=== PATIENT | male | born 1985 | race Caucasian/White ===

== ENCOUNTER 2018-05-20 08:15 | Emergency (ER) | payer OTHER, SELFPAY ==
[2018-05-20 08:15] VITALS: BP 138/76; PULSE 76; RESP 18; TEMP 36.8; O2SAT 98; BMI 32.3
[2018-05-20] MEDS: Glucagon 1 MG/ML Syringe IM (08:34)
--- NOTE | 2018-05-20 08:35 | ED.VISSUMM ---
- ER Visit Summary Date of Service: 05/20/18 Chief Complaint: Food impaction History of Present Illness: The patient is a 33 M presents with food impaction. Patient states that he was eating a hot dog last night at the [facility]. He felt the hot dog get stuck in his throat. He attempted to make himself vomit. He continues to feel like the food is stuck in his throat. When he attempts to swallow liquids today, it comes back up. He has a history of this one time in the past. Denies other complaints. Physical Examination: Vitals are stable. Patient is afebrile. Alert no acute distress. HEENT exam is unremarkable. Neck is supple. Lungs are clear and equal bilaterally. Heart is regular rate and rhythm. Abdomen is soft nontender nondistended. Extremities are unremarkable. Skin is warm and dry. Remainder of exam is unremarkable. Emergency Department Course and Treatment: Patient given glucagon IM with no improvement. Discussed with Dr. Lemon, we currently have no OR/endoscopy availability. Discussed with [facility]. Patient will be transferred to [facility] by private vehicle. Disposition: Transfer [facility] Impression: Esophageal food impaction This note was generated with [employer] dictation software. It may contain incorrect words, spelling, and punctuation that were not noted in review of the chart prior to signing ED Disposition - Plan for ED Patient: Chief Complaint: Foreign Body Referrals: Care Physician,No Primary [Primary Care Provider] -
--- NOTE | 2018-05-20 08:50 | NURSING ---
CALLING [facility] FOR TRANSFER. TALKED TO DIMAS
--- NOTE | 2018-05-20 09:10 | ED.DEP ---
ED Disposition - Plan for ED Patient: Chief Complaint: Foreign Body Instructions: ED Foreign Body Swallowed Adult Referrals: Care Physician,No Primary [Primary Care Provider] -
[2018-05-20 09:50] VITALS: BP 161/97; PULSE 81; RESP 16; O2SAT 97
--- NOTE | 2018-05-20 09:50 | NURSING ---
ER TO ER PRIVATE CAR
== END 2018-05-20 10:12 | disposition short-term general hospital (02) ==
PROVIDERS: Emergency Provider Emergency Medicine
DX: T18.128A Food in esophagus causing other injury, initial encounter (principal); X58.XXXA Exposure to other specified factors, initial encounter; Y93.89 Activity, other specified; Y92.320 Baseball field as the place of occurrence of the external cause; Y99.8 Other external cause status
CPT/HCPCS: 96372; 99283; J1610

== ENCOUNTER 2018-09-18 19:16 | Emergency (ER) | payer OTHER, SELFPAY ==
[2018-09-18 19:17] VITALS: BP 166/94; PULSE 99; RESP 16; TEMP 36.4; O2SAT 100; BMI 32.9
--- NOTE | 2018-09-18 19:35 | RAD_ITS ---
STUDY: X-RAY - RIGHT RADIUS AND ULNA REASON FOR EXAM: Male, 33 years old. Fall. Pain. TECHNIQUE: 2 view(s) of the forearm. COMPARISON: None. FINDINGS: There is no evidence of fracture or dislocation. There are no significant degenerative changes. There are no radiodense foreign bodies. RAD/Forearm 2 Views IMPRESSION: No fracture or dislocation. Electronically Signed: Davon Metz, at 19:54 EST Tel , Service support ,
[2018-09-18] MEDS: Naproxen 500 MG Tablet PO (19:37)
--- NOTE | 2018-09-18 20:14 | ED.DCSUM_ITS ---
- ER Visit Summary Date of Service: 09/18/18 Chief Complaint: Right arm injury History of Present Illness: The patient is a 33 M who fell [place] tonight injuring his right forearm. He reports tingling in his fingers. Pain is over the proximal forearm and he denies any pain at the shoulder. He is right-hand dominant. He denies any other injury from the fall. Physical Examination: Vital signs significant for blood pressure 166/94, otherwise unremarkable. Head neck examination normal. Heart is regular rate and rhythm. Lung sounds are clear. Right upper extremity examination reveals abrasions with mild edema to the proximal right forearm. He has full range of motion. Strong distal pulses are noted. Strong hand grasp with normal strength throughout. Test Results: Right forearm x-rays revealed no evidence of fracture or dislocation. Emergency Department Course and Treatment: Patient is given an ice pack and naproxen for pain. Test results are discussed with him. He will be given naproxen for home and referred to local PCP for follow-up. Treatment Plan: [] Disposition: Discharge Impression: Mechanical fall with right forearm contusion This note was generated with [employer] dictation software. It may contain incorrect words, spelling, and punctuation that were not noted in review of the chart prior to signing ED Disposition - Plan for ED Patient: Chief Complaint: Upper Extremity Injury Referrals: Care Physician,No Primary [Primary Care Provider] -
--- NOTE | 2018-09-18 20:14 | ED.DEP ---
ED Disposition - Plan for ED Patient: Disposition: Home or Assisted Living Chief Complaint: Upper Extremity Injury Instructions: ED Contusion Upper Ext Prescriptions: Naproxen [Naprosyn] 500 mg PO BID PRN PRN #20 tablet PRN Reason: Pain Referrals: Krish Barrett III, MD [STAFF PHYSICIAN] - 1-2 Weeks
[2018-09-18 20:24] VITALS: BP 158/90; PULSE 95; RESP 16; O2SAT 98
--- OUTSIDE RECORDS SUMMARY | 2018-11-21 05:25 | XMS RPT_ITS ---
:1985 Author Organization [facility] Care Team Providers Name Role Phone Primay Care Physicia, No Primary Care Unavailable Fe Castle Attending Unavailable Primay Care Physicia, No Primary Care Unavailable Macrina Rand Attending Unavailable KATY MAIN (PROJECT FINANCE ANALYST) Referring Unavailable ORIN COTTON Referring Unavailable MELVINA, ROLANDA-CHI Primary Care Unavailable DAHLIA BUNN Attending Unavailable PROBLEMS PROBLEMS DATE TYPE CONDITION / ATTENDING STATUS SOURCE CODE 05/20/2018 Active Unknown / NA Active [facility] UNK(Unknown) Other [place] Repository 05/20/2018 Admitting Unknown / Raina BUNN General diagnosis UNK(Unknown) [facility] Repository 01/02/2018 Active Pain in right NA Active [facility] hand / Main [place] M79.641(ICD-10) Repository PROCEDURES PROCEDURES No Procedure Records FoundRESULTS RESULTS EMERGENCY DEPARTMENT Observed: 09/18/2018 Status: F Source: [place] SUMMARY 10:12 PM [facility] REPOSITORY [facility] Medical Records Department [address] [place] [address] Emergency Department Summary 09/18/182011 MR#: [id number] Acct: [id number] Name: EL GROSS GENE Rep #: [id number] : 1985 33 From: Macrina Rand MD PCP: Care Physician, No Primary Status: DEP ER - ER Visit Summary Date of Service: 09/18/18 Chief Complaint: Right arm injury History of Present Illness: The patient is a 33 M who fell on [place] tonight injuring his right forearm. He reports tingling in his fingers. Pain is over the proximal forearm and he denies any pain at the shoulder. He is right-hand dominant. He denies any other injury from the fall. Physical Examination: Vital signs significant for blood pressure 166/94, otherwise unremarkable. Head neck examination normal. Heart is regular rate and rhythm. Lung sounds are clear. Right upper extremity examination reveals abrasions with mild edema to the proximal right forearm. He has full range of motion. Strong distal pulses are noted. Strong hand grasp with normal strength throughout. Test Results: Right forearm x-rays revealed no evidence of fracture or dislocation. Emergency Department Course and Treatment: Patient is given an ice pack and naproxen for pain. Test results are discussed with him. He will be given naproxen for home and referred to local PCP for follow-up. Treatment Plan: [] Disposition: Discharge Impression: Mechanical fall with right forearm contusion This note was generated with [employer] dictation software. It may contain incorrect words, spelling, and punctuation that were not noted in review of the chart prior to signing ED Disposition - Plan for ED Patient: Chief Complaint: Upper Extremity Injury Referrals: Care Physician,No Primary [Primary Care Provider] - What to do if you have Problems For any increased pain, shortness of breath, bleeding, nausea or vomiting, chest pain, or any unexpected problems, contact your Primary Care Provider. Call [employer] [facility] ([phone]) or report to the closest Emergency Room. Call 911 if necessary. 09/18/18 3318 <Electronically signed by Macrina Rand MD> Date Macrina Rand MD Cosigner Signature (If Indicated): Date CC: No Primary Care Physician DISCHARGE INSTRUCTION Observed: 09/18/2018 Status: F Source: [place] 8:15 PM [facility] REPOSITORY [facility] Medical Records Department [address] [place] [address] Discharge Instruction 09/18/182013 MR#: [id number] Acct: [id number] Name: EL GROSS Rep #: [id number] : 1985 33 From: Macrina Rand MD PCP: Care Physician, No Primary Status: REG ER ED Disposition - Plan for ED Patient: Disposition: Home or Assisted Living Chief Complaint: Upper Extremity Injury Instructions: ED Contusion Upper Ext Prescriptions: Naproxen [Naprosyn] 500 mg PO BID PRN PRN #20 tablet PRN Reason: Pain Referrals: Krish Barrett III, MD [STAFF PHYSICIAN] - 1-2 Weeks What to do if you have Problems For any increased pain, shortness of breath, bleeding, nausea or vomiting, chest pain, or any unexpected problems, contact your Primary Care Provider. Call [employer] [facility] ([phone]) or report to the closest Emergency Room. Call 911 if necessary. 09/18/182014 <Electronically signed by Macrina Rand MD> Date Macrina Rand MD Cosigner Signature (If Indicated): Date CC: No Primary Care Physician FOREARM 2 VIEWS Observed: 09/18/2018 Status: F Source: [place] 7:30 PM [facility] REPOSITORY [facility] Imaging Services [address] [address] Forearm 2 Views MR#: [id number] Acct: [id number] Name: EL GROSS Rep #: [id number] : 1985 M 33 From: Davon Metz MD PCP: Care Physician, No Primary Status: REG ER Study: Forearm 2 Views Date of Exam: 09/18/18 Exam# [id number] Ordering Dr: Macrina Rand MD STUDY: X-RAY - RIGHT RADIUS AND ULNA REASON FOR EXAM: Male, 33 years old. Fall. Pain. TECHNIQUE: 2 view(s) of the forearm. COMPARISON: None. FINDINGS: There is no evidence of fracture or dislocation. There are no significant degenerative changes. There are no radiodense foreign bodies. RAD/Forearm 2 Views IMPRESSION: No fracture or dislocation. Electronically Signed: Davon Isaías, at 19:54 EST Tel , Service support , CC: No Primary Care Physician; Macrina Rand MD Manager Technical Training: Signed ANES POST Observed: 05/20/2018 Status: COMPLETED Source: [place] 5:21 PM [facility] REPOSITORY O ID: [id number] Author: John Faye Service: Anesthesiology Author Type: Physician Type: Anesthesia PostOp Filed: 05/20/2018 5:21 PM Note Text: POST ANESTHESIA EVALUATION NOTE SERVICE DATE: 05/20/2018 SERVICE TIME: 5:21 PM : 1985 Vitals: 05/20/18 1105 05/20/181709 Temp: 36.6 ?C (97.9 ?F) 37.1 ?C (98.8 ?F) 05/20/18 1430 05/20/18 1530 05/20/18 1600 05/20/181709 BP: 135/94 135/87 129/82 112/77 05/20/18 1130 05/20/18 1430 05/20/18 1530 05/20/18 171 Pulse: (!) 92 89 (!) 91 102 05/20/18 1130 05/20/18 1430 05/20/18 1530 05/20/18 1710 Resp: 18 14 22 20 05/20/18 1130 05/20/18 1430 05/20/18 1530 05/20/18 1710 SpO2: 96% (!) 94% 98% 100% Validated Vital Signs: Yes POST ANES STATUS: No apparent anesthetic complications. The patient is appropriately hydrated with stable respiratory and cardiovascular status. Patient has safe and adequate airway control. The patient has appropriate pain relief and no significant post operative nausea or vomiting. The patient has achieved baseline mental status. Intra-Operative Events: No Significant Anesthesia Events Further assessment by Anesthesia Service: None Other Remarks: SIGNATURE: John Faye MD PATIENT NAME: El Gross DATE: May 20, 2018 TIME: 5:21 PM PAGER/CONTACT #: [phone] BRIEF OP NOT Observed: 05/20/2018 Status: COMPLETED Source: [place] 5:21 PM [facility] OTHER CAMPUS REPOSITORY HNO ID: [id number] Author: Cheryl Carrion MD Service: Gastroenterology Author Type: Physician Type: Brief Op Note Filed: 05/20/2018 5:25 PM Note Text: BRIEF OPERATIVE / PROCEDURE NOTE LOG ID: [id number] SURGERY/PROCEDURE DATE: 05/20/2018 INCISION/PROCEDURE START TIME: 4:48 PM INCISION CLOSE/PROCEDURE END TIME: 5:02 PM SURGEON(S)/PROCEDURALIST(S) AND MASTER PILOT(S): Surgeon(s) and Role: * Cheryl Carrion MD - Primary No Additional Staff PROCEDURE(S): EGD with foreign body removal (food bolus) ANESTHESIA: General FINDINGS: - normal duodenum - normal stomach - GEJ 38cm - food bolus noted in the proximal esophagus removed with swift net. 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 and biopsies from the distal and proxiaml esophagus were taken to evaluate for eosinophilic esophagitis - otherwise normal esophagus ESTIMATED BLOOD LOSS: None SPECIMENS: Biopsies from the distal and proximal esophagus COMPLICATIONS: None PRE-OP/PRE-PROCEDURE DIAGNOSIS: food impaction POST-OP/POST-PROCEDURE DIAGNOSIS: Food impaction of esophagus [T18.128A] SIGNATURE: Cheryl Carrion MD PATIENT NAME: El Gross DATE: May 20, 2018 TIME: 5:21 PM PAGER/CONTACT #: ANES PREOP Observed: 05/20/2018 Status: COMPLETED Source: [place] 5:20 PM [facility] REPOSITORY HNO ID: [id number] Author: John Faye Service: Anesthesiology Author Type: Physician Type: Anesthesia PreOp Filed: 05/20/2018 5:20 PM Note Text: POST ANESTHESIA EVALUATION NOTE SERVICE DATE: 05/20/2018 SERVICE TIME: 5:20 PM : 1985 Vitals: 05/20/18 1105 05/20/18 1710 Temp: 36.6 ?C (97.9 ?F) 37.1 ?C (98.8 ?F) 05/20/18 1430 05/20/18 1530 05/20/18 1600 05/20/18 1710 BP: 135/94 135/87 129/82 112/77 05/20/18 1130 05/20/18 1430 05/20/18 1530 05/20/18 1710 Pulse: (!) 92 89 (!) 91 102 05/20/18 1130 05/20/18 1430 05/20/18 1530 05/20/18 1710 Resp: 18 14 22 20 05/20/18 1130 05/20/18 1430 05/20/18 1530 05/20/18 1710 SpO2: 96% (!) 94% 98% 100% Validated Vital Signs: Yes POST ANES STATUS: No apparent anesthetic complications. The patient is appropriately hydrated with stable respiratory and cardiovascular status. Patient has safe and adequate airway control. The patient has appropriate pain relief and no significant post operative nausea or vomiting. The patient has achieved baseline mental status. Intra-Operative Events: No Significant Anesthesia Events Further assessment by Anesthesia Service: None Other Remarks: SIGNATURE: John Faye MD PATIENT NAME: El Gross DATE: May 20, 2018 TIME: 5:20 PM PAGER/CONTACT #: [phone] ANES PREOP Observed: 05/20/2018 Status: COMPLETED Source: [place] 5:15 PM [facility] REPOSITORY HNO ID: [id number] Author: John Faye Service: Anesthesiology Author Type: Physician Type: Anesthesia PreOp Filed: 05/20/2018 5:16 PM Note Text: ANESTHESIOLOGY DAY OF SURGERY NOTE SERVICE DATE: 05/20/2018 SERVICE TIME: 5:15 PM : 1985 Procedure(s) (LRB): EGD (N/A) Surgeon(s): Cheryl Carrion MD Estimated body mass index is 32.32 kg/m? as calculated from the following: Height as of this encounter: 185.4 cm (6' 1). Weight as of this encounter: 111.1 kg (245 lb). Most recent hematocrit and potassium results: Hematocrit 47.5 09/29/2012 Potassium 3.9 09/29/2012 ANES DOS/PREOP NOTE: Vitals: 05/20/18 1430 05/20/18 1530 05/20/18 1600 05/20/18 1710 BP: 135/94 135/87 129/82 Pulse: 89 (!) 91 Resp: 14 22 Temp: (P) 37.1 ?C (98.8 ?F) TempSrc: (P) Temporal Artery SpO2: (!) 94% 98% Weight: Height: ACTIVE PROBLEM LIST Palpitations Well Adult Exam Seasonal Allergies Food Impaction of Esophagus Obesity, Class I, Bmi 30-34.9 PAST MEDICAL HISTORY Diagnosis Date - Obstructive sleep apnea - Palpitations - Seasonal allergies - Well adult exam PAST SURGICAL HISTORY Procedure Laterality Date - PAST SURGICAL HISTORY OF 02/2012 left foot surgery - PAST SURGICAL HISTORY OF 2009 repair tendon right hand FAMILY HISTORY Problem Relation Age of Onset - Cancer Mother thyroid - Cancer Father thyroid? - Cancer Maternal Grandmother thyroid - Hypertension Maternal Grandmother - Hypertension Maternal Grandfather Social History: Social History Substance Use Topics - Smoking status: Never Smoker - Smokeless tobacco: Never Used - Alcohol use 3.0 oz/week 2 Cans of Beer (12oz) per week No current facility-administered medications on file prior to encounter. Current Outpatient Prescriptions on File Prior to Encounter: benzonatate (TESSALON PERLE) 100 mg capsule Take 1-2 capsules tid prn albuterol (PROVENTIL) 5 mg/mL nebu Inhale 0.5 mL as instructed one time only for 1 dose. 1 DOSE NOW - BACK OFFICE. PLACE 0.5 ML PER DROPPER AND 2.5 ML OF NORMAL SALINE INTO RESERVOIR. albuterol HFA (PROAIR HFA) 90 mcg/actuation inhaler Inhale 2 Puffs as instructed every 4 hours as needed. fluticasone (FLONASE) 50 mcg/actuation nasal spray Use 2 Sprays in each nostril once daily. cetirizine (ZYRTEC) 10 mg tablet Take 1 tablet by mouth once daily. No current facility-administered medications for this encounter. Allergies: ALLERGIES Allergen Reactions - Bee Sting Swelling Local swelling and shortness of breath DOS EXAM: Adequate NPO status: Yes Anesthetic risks, benefits, alternatives, personnel and consent discussed: Yes Patient agrees to proceed: Yes Previous Anesthesia: No history of adverse event. Airway Assessment: MP 2; Neck ROM: Full ROM without neurologic symptoms; Airway Evaluation: No significant abnormalities Symptoms of Sleep Apnea: Male gender Dentition: Poor dentition Multiple missing teeth Removable partial: upper Additional Physical Exam: Lungs: Patient health status unchanged since recent history and physical. See history and physical for exam findings. Cardiac: Patient health status unchanged since recent history and physical. See history and physical for exam findings. Additional Pertinent Findings: N/A Blood Products: Not anticipated for this procedure. Anesthetic Plan: General, Standard ASA Monitors Pain Management Plan: Parenteral or Oral ASA Class: 2 Other Medical Problems: None Chronic Beta Iris medication administered within 24 hours: N/A I have interviewed and examined the patient. I have reviewed the medical record and/or the pre-anesthesia evaluation, pertinent labs, and test results. Significant changes in the patient's condition since the History and Physical, not otherwise documented in primary service progress notes: No This contains updated information obtained within 48 hours of Surgery/Procedure. SIGNATURE: John Faye MD PATIENT NAME: El Gross DATE: May 20, 2018 TIME: 5:15 PM CSN: [id number] EMERGENCY DEPARTMENT Observed: 05/20/2018 Status: F Source: [place] SUMMARY 4:35 PM [facility] REPOSITORY [facility] Medical Records Department [address] [place] [address] Emergency Department Summary 05/20/18 0835 MR#: [id number] Acct: [id number] Name: EL GROSS GENE Rep #: [id number] : 1985 33 From: Fe Castle MD PCP: Care Physician, No Primary Status: DEP ER - ER Visit Summary Date of Service: 05/20/18 Chief Complaint: Food impaction History of Present Illness: The patient is a 33 M presents with food impaction. Patient states that he was eating a hot dog last night at the [employer]. He felt the hot dog get stuck in his throat. He attempted to make himself vomit. He continues to feel like the food is stuck in his throat. When he attempts to swallow liquids today, it comes back up. He has a history of this one time in the past. Denies other complaints. Physical Examination: Vitals are stable. Patient is afebrile. Alert no acute distress. HEENT exam is unremarkable. Neck is supple. Lungs are clear and equal bilaterally. Heart is regular rate and rhythm. Abdomen is soft nontender nondistended. Extremities are unremarkable. Skin is warm and dry. Remainder of exam is unremarkable. Emergency Department Course and Treatment: Patient given glucagon IM with no improvement. Discussed with Dr. Lemon, we currently have no OR/endoscopy availability. Discussed with [facility]. Patient will be transferred to [facility] by private vehicle. Disposition: Transfer [facility] Impression: Esophageal food impaction This note was generated with [employer] dictation software. It may contain incorrect words, spelling, and punctuation that were not noted in review of the chart prior to signing ED Disposition - Plan for ED Patient: Chief Complaint: Foreign Body Referrals: Care Physician,No Primary [Primary Care Provider] - What to do if you have Problems For any increased pain, shortness of breath, bleeding, nausea or vomiting, chest pain, or any unexpected problems, contact your Primary Care Provider. Call [facility] ([phone]) or report to the closest Emergency Room. Call 911 if necessary. 05/20/18 0549 <Electronically signed by Fe Castle MD> Date Fe Castle MD Cosigner Signature (If Indicated): Date CC: No Primary Care Physician CONSULT Observed: 05/20/2018 Status: COMPLETED Source: [place] 2:54 PM CLINIC OTHER CAMPUS REPOSITORY O ID: [id number] Author: Cheryl Carrion MD Service: Gastroenterology Author Type: Physician Type: Consults Filed: 05/20/2018 5:17 PM Note Text: CONSULT: GASTROENTEROLOGY SERVICE SERVICE DATE: 05/20/18 SERVICE TIME: 2:54 PM REASON FOR CONSULT: food in esophagus REQUESTING PHYSICIAN: ER SUBJECTIVE El Gross is a 33 year old male who was transferred from [facility] for food bolus in esophagus. Pt reports that at last nights [employer] game he was eating a hot dog when he sudden felt it was stuck in his throat. Pt reports about 5 years ago he had pulled pork get stuck but after vomiting was able to clear it. Reports intermittent GERD but no dysphagia on a regular basis. Pt has a history of asthma but not eczemia. Pt was at [facility] ER and they attempted glucagon with no improvement. They did no have coverage for GI/surgery so transfer here for GI evaluation/managament. PAST MEDICAL HISTORY Diagnosis Date - Obstructive sleep apnea - Palpitations - Seasonal allergies - Well adult exam PAST SURGICAL HISTORY Procedure Laterality Date - PAST SURGICAL HISTORY OF 02/2012 left foot surgery - PAST SURGICAL HISTORY OF 2009 repair tendon right hand FAMILY HISTORY Problem Relation Age of Onset - Cancer Mother thyroid - Cancer Maternal Grandmother thyroid - Hypertension Maternal Grandfather - Hypertension Maternal Grandmother - Cancer Father thyroid? No current facility-administered medications for this encounter. Current Outpatient Prescriptions: benzonatate (TESSALON PERLE) 100 mg capsule Take 1-2 capsules tid prn Disp: 30 capsule Rfl: 0 albuterol (PROVENTIL) 5 mg/mL nebu Inhale 0.5 mL as instructed one time only for 1 dose. 1 DOSE NOW - BACK OFFICE. PLACE 0.5 ML PER DROPPER AND 2.5 ML OF NORMAL SALINE INTO RESERVOIR. Disp: 1 mL Rfl: 0 albuterol HFA (PROAIR HFA) 90 mcg/actuation inhaler Inhale 2 Puffs as instructed every 4 hours as needed. Disp: 1 Inhaler Rfl: 0 fluticasone (FLONASE) 50 mcg/actuation nasal spray Use 2 Sprays in each nostril once daily. Disp: 1 Bottle Rfl: 0 cetirizine (ZYRTEC) 10 mg tablet Take 1 tablet by mouth once daily. Disp: Rfl: 0 ALLERGIES Allergen Reactions - Bee Sting Swelling Local swelling and shortness of breath Fully Assessed 05/20/18 COMPLETE REVIEW OF SYSTEMS: PAIN ASSESSMENT: Negative for pain GENERAL: No weight loss, malaise or fevers HEAD AND NECK: No headache, swollen glands PULMONARY: No cough, wheezing, dyspnea on exertion, or shortness of breath CARDIOVASCULAR: No chest pain, palpitations ABDOMINAL: Per HPI NEUROLOGIC: No dizziness, lightheadedness, or weakness OPHTHALMOLOGIC: No visual abnormalities MUSCULOSKELETAL: No pain, weakness, or leg swelling SKIN: No rash OBJECTIVE PHYSICAL EXAM: 05/20/18 1105 05/20/18 1130 05/20/18 1430 BP: 147/90 125/85 135/94 Pulse: (!) 99 (!) 92 89 Resp: 18 18 14 Temp: 36.6 ?C (97.9 ?F) TempSrc: Oral SpO2: 98% 96% (!) 94% Weight: 111.1 kg (245 lb) Height: 185.4 cm (6' 1) GENERAL: Alert, no distress, cooperative HEENT: PERRLA, normocephalic, no thyromegaly, no lymphadenopathy, trachea centrally located CHEST: Clear to auscultation and percussion bilaterally CVS: RRR, no murmur/gallop ABD: soft, BS+, NT/ND NEURO: Cranial nerves grossly intact, no lateralizing neurologic signs MSK: No wasting, no weakness EXT: No edema, no deformity SKIN: No jaundice, no rash DATA: Diagnostic tests reviewed for today's visit: Most recent labs and imaging results. CBC, Coags, BMP, Mg, Phos Liver Function, Amylase, AND Lipase No results found for: INR IMPRESSION/RECOMMENDATION 1. Food bolus in esophagus: DDx: EoE vs stricture vs esophagitis vs etc - NPO - urgent EGD today in OR SIGNATURE: Cheryl Carrion MD PATIENT NAME: El Gross DATE: 05/20/18 TIME: 2:54 PM ED NOTE Observed: 05/20/2018 Status: COMPLETED Source: [place] 2:41 PM CLINIC OTHER CAMPUS REPOSITORY HNO ID: [id number] Author: Earline SpannRnDee Dee Barth RN Service: Emergency Medicine Author Type: Registered Nurse Type: ED Notes Filed: 05/20/2018 2:42 PM Note Text: Updated pt on or time ED PROV NOTE Observed: 05/20/2018 Status: COMPLETED Source: [place] 12:02 PM [facility] REPOSITORY HNO ID: [id number] Author: Dahlia Bunn DO Service: Emergency Medicine Author Type: Physician Type: ED Provider Notes Filed: 05/21/2018 6:35 PM Note Text: Attending Note I personally saw and examined the patient. I reviewed the resident's note. I agree with the resident's assessment and plan unless otherwise noted. This is a 33 year old male presenting with food bolus. The patient was at the [employer] game last night ate a hot dog. A piece of the hotdog got stuck in his esophagus. He states he has not been able to swallow his own saliva since then. Symptoms persisted today. He was seen at [facility] he was given glucagon without relief. He was sent here to see gastroenterology. . Physical Exam: Patient's afebrile vitals within normal limits Heart regular no murmurs rubs or gallops Lungs clear Neck no stridor Plan I have discussed the patient's care with gastroenterology. They're arranging for or time. Plan will be for patient to go to the OR for bolus removal and then will be discharged from the PACU. Patient informed of plan and in agreement. He is currently trying to arrange a ride home Dahlia Bunn DO 05/21/18 1835 ED NOTE Observed: 05/20/2018 Status: COMPLETED Source: [place] 11:20 AM [facility] REPOSITORY HNO ID: [id number] Author: Earline SpannRnDee Dee Barth RN Service: Emergency Medicine Author Type: Registered Nurse Type: ED Notes Filed: 05/20/2018 11:45 AM Note Text: hospital monitor, 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 ED NOTE Observed: 05/20/2018 Status: COMPLETED Source: [place] 11:07 AM [facility] REPOSITORY HNO ID: [id number] Author: Rhoda SpannRn) YAS Malik Service: Emergency Medicine Author Type: Registered Nurse Type: ED Notes Filed: 05/20/2018 11:08 AM Note Text: Pt presents from [facility] for a piece of hot dog stuck in his throat. Pt ate it at 2000 last night. Pt received glucagon IM at [facility] without results. Pt is able to maintain airway but is spitting out saliva. ED NOTE Observed: 05/20/2018 Status: COMPLETED Source: [place] 11:05 AM [facility] REPOSITORY HNO ID: [id number] Author: Sarah Beth (Medic) Johana Galeano Service: (none) Author Type: [employer] [facility] Type: ED Notes Filed: 05/20/2018 11:05 AM Note Text: Bed: 01-ED Expected date: 05/20/18 Expected time: 10:56 AM Means of arrival: Other EMS Fire Comments: Transfer from [facility]--hotdog stuck in esophagus DISCHARGE INSTRUCTION Observed: 05/20/2018 Status: F Source: [place] 9:11 AM [facility] REPOSITORY [facility] Medical Records Department [address] [place] [address] Discharge Instruction 05/20/18909 MR#: [id number] Acct: [id number] Name: EL GROSS Rep #: [id number] : 1985 33 From: Fe Castle MD PCP: Care Physician, No Primary Status: REG ER ED Disposition - Plan for ED Patient: Chief Complaint: Foreign Body Instructions: ED Foreign Body Swallowed Adult Referrals: Care Physician,No Primary [Primary Care Provider] - What to do if you have Problems For any increased pain, shortness of breath, bleeding, nausea or vomiting, chest pain, or any unexpected problems, contact your Primary Care Provider. Call [facility] ([phone]) or report to the closest Emergency Room. Call 911 if necessary. 05/20/18910 <Electronically signed by Fe Castle MD> Date Fe Castle MD Cosigner Signature (If Indicated): Date CC: No Primary Care Physician HOSP Observed: 05/20/2018 Status: COMPLETED Source: [place] 12:00 AM [facility] REPOSITORY Patient:El Gross MRN: <[id number]> Height:6' 1(1.854 m) Weight:245 lb (111.131 kg) Outpatient Medications as of 05/20/18: benzonatate (TESSALON PERLE) 100 mg capsule albuterol (PROVENTIL) 5 mg/mL nebu albuterol HFA (PROAIR HFA) 90 mcg/actuation inhaler fluticasone (FLONASE) 50 mcg/actuation nasal spray cetirizine (ZYRTEC) 10 mg tablet Admission/Clinic Administered Medications as of 05/20/18: water for irrigation irrigation Problem List: Palpitations [R00.2] Well adult exam [Z00.00] Seasonal allergies [J30.2] Food impaction of esophagus [T18.128A] Allergies: Bee Sting Date Verified: 05/20/18 Lab Values No results within the last 30 days for the following basenames: K,HCT No progress notes entered within the past 30 days OPERATIVE NO Observed: 05/20/2018 Status: COMPLETED Source: [place] 12:00 AM CLINIC OTHER CAMPUS REPOSITORY HNO ID: [id number] Author: Cheryl Carrion MD Service: Gastroenterology Author Type: Physician Type: Operative Report Filed: 05/21/2018 12:13 PM Note Text: [facility] - Operative Report EL GROSS : 1985 AGE: 33. SEX: M PATIENT TYPE: E HOSP [facility]: [facility] LOCATION: [facility] ATTENDING PHYSICIAN: ANN-MARIE NUMBER: [id number] DATE OF SURGERY/PROCEDURE: 05/20/2018 PREOPERATIVE DIAGNOSIS: Food bolus in the esophagus. POSTOPERATIVE DIAGNOSIS: 1. Food bolus found in the proximal esophagus and removed. 2. Otherwise normal esophagus. 3. Normal stomach. 4. Normal duodenum. SURGEON: hCeryl Carrion M.D. MASTER PILOT: SURGERY/PROCEDURE: Esophagogastroduodenoscopy with foreign body removal. ANESTHESIA: Please see Anesthesia notes. INDICATIONS: The patient was at the [employer] last night, while eating a hot dog, and all of a sudden felt food stuck in his esophagus. He reports this happened about 5 years ago with pulled pork, but in between he has had no issues with dysphagia. He does have history of asthma as a child, but denies eczema. Patient continues to have issues swallowing his secretions, complaining of food still being in the esophagus. DESCRIPTION OF PROCEDURE: After risks, benefits, and alternatives of the procedure were thoroughly explained, informed consent was obtained. Under direct visualization, the video endoscope was introduced through the mouth and advanced to second portion of duodenum without limitation. Instrument was slowly withdrawn. Mucosa was fully examined. Findings: There was a meat bolus found in the proximal esophagus. I used a Swift Net and was able to remove this food bolus. The scope was advanced down to the 2nd portion of duodenum. There was normal-appearing mucosa found in the entire duodenum. There was normal appearing mucosa found in the entire stomach. The scope was retroflexed and no abnormalities were noted. The scope was straightened and slowly withdrawn. The GE junction was noted at 38 centimeters. The scope was slowly withdrawn and it was noted that the esophagus had a feline appearance concerning for possible eosinophilic esophagitis. Biopsies were taken from the distal and proximal ends of the esophagus to rule out eosinophilic esophagitis. The esophagus otherwise appeared normal. The instrument was withdrawn and the procedure was concluded. Vital signs were monitored constantly throughout the procedure. Specimens: Biopsies from the distal esophagus and the proximal esophagus. Complications: None. Estimated blood loss: None. Recommendations: 1. I would recommend a liquid diet for the next 24 hours and then advance slowly. 2. Start PPI therapy over the counter until seen by physician. 3. Await biopsy results. 4. Follow up with PCP and get referral to GI physician. Cheryl Carrion M.D. JH:[id number] /[id number] cc: * PCP SURGICAL TISSUE EXAM Observed: 05/20/2018 Status: F Source: [facility] 12:00 AM HEALTH SYSTEM REPOSITORY Test performed at [place] [id number] NAME: EL GROSS REQUESTING: DAHLIA BUNN D.O. COPY TO: CHERYL CARROIN FINAL DIAGNOSIS: A) DISTAL ESOPHAGUS, BIOPSY - SQUAMOUS MUCOSA WITH ACUTE AND CHRONIC INFLAMMATION AND REACTIVE EPITHELIAL CHANGES. ALCIAN BLUE/PAS STAIN IS NEGATIVE FOR INTESTINAL METAPLASIA OR FUNGAL ORGANISMS. B) PROXIMAL ESOPHAGUS, BIOPSY - SQUAMOUS MUCOSA WITH CHRONIC INFLAMMATION CONSISTING PREDOMINANTLY OF EOSINOPHILS. SEE COMMENT. COMMENT: The proximal esophagus biopsy consists of fragments of benign squamous mucosa with chronic inflammation which consist predominantly of eosinophils. Focally the eosinophils number > 100 per high power field. In the appropriate clinical context these findings could be consistent with eosinophilic esophagitis. OPERATIVE PROCEDURE: EGD for foreign body removal CLINICAL INFORMATION: Rule out eosinophil esophagitis; Food impaction GROSS DESCRIPTION: A) Distal esophageal biopsy Received in formalin labeled distal esophagus is an irregular-shaped segment of bustos soft tissue measuring 0.2 x 0.1 x 0.1 cm. Totally submitted in one cassette. Levels x 3. AB/PAS B) Proximal esophageal biopsy Received in formalin labeled proximal esophagus biopsy are multiple irregular-shaped segments of white soft tissue aggregating to 0.4 x 0.1 x 0.1 cm. The specimen is totally submitted in one cassette. Levels x 3. ARH:lobo STEPHENS M.D., PATHOLOGIST (Electronic signature on file) Signed out: 05/23/2018 18:15 PRINTED: 05/23/2018 Page 1 of 1 Performed By: #### SURG #### [place] [address] ED NOTE Observed: 05/19/2018 Status: COMPLETED Source: [place] 10:56 PM [facility] REPOSITORY HNO ID: [id number] Author: Maxine SpannRn) YAS Cardozo Service: Emergency Medicine Author Type: Registered Nurse Type: ED Notes Filed: 05/19/2018 10:56 PM Note Text: Arrives to ED with complaints of foreign body obstruction. Speech is clear. Able to maintain secretions at this time. AANDOx3. MAEx4. Skin warm and dry to the touch. Skin color pink . PROGRESS Observed: 01/02/2018 Status: COMPLETED Source: [place] 2:24 PM [facility] REPOSITORY HNO ID: [id number] Author: Orin Cotton Service: (none) Author Type: Nurse Practitioner Type: Progress Notes Filed: 01/02/2018 2:46 PM Note Text: Subjective HPI Pt presents with c/o right hand pain x 5 days after FOOSH. Pain and swelling to lateral right hand. +tenderness. +ecchymosis. No abrasions. Denies sensory changes. Full ROM. Hand grasp weaker than normal d/t swelling and pain. Has taken several doses of Aleve and applied ice prn. Review of Systems Constitutional: Negative for chills and fever. Musculoskeletal: Positive for falls. Objective Physical Exam Constitutional: He is oriented to person, place, and time and well-developed, well-nourished, and in no distress. No distress. Musculoskeletal: Right hand: He exhibits tenderness, bony tenderness and swelling. He exhibits normal range of motion, normal two-point discrimination, normal capillary refill, no deformity and no laceration. Normal sensation noted. Normal strength noted. Full active ROM against resistance. Hand grasp mildly decreased. Cap refill 2 sec. Radial pulse 2+. Sensory intact. Neurological: He is alert and oriented to person, place, and time. Skin: Skin is warm and dry. He is not diaphoretic. BP 122/82 Pulse 68 Temp 36.7 ?C (98 ?F) (Left Tympanic) Resp 16 Wt 113.4 kg (250 lb) BMI 34.38 kg/m? .Patient presents with: Musculoskeletal Problem: x 5 days right hand pain and swelling after injury PAST MEDICAL HISTORY Diagnosis Date - Obstructive sleep apnea - Palpitations - Seasonal allergies - Well adult exam PAST SURGICAL HISTORY Procedure Laterality Date - PAST SURGICAL HISTORY OF 02/2012 left foot surgery - PAST SURGICAL HISTORY OF 2009 repair tendon right hand ALLERGIES Bee Sting MEDICATIONS doxycycline monohydrate (MONODOX) 100 mg capsule Take 1 capsule by mouth twice daily for 10 days. benzonatate (TESSALON PERLE) 100 mg capsule Take 1-2 capsules tid prn albuterol HFA (PROAIR HFA) 90 mcg/actuation inhaler Inhale 2 Puffs as instructed every 4 hours as needed. fluticasone (FLONASE) 50 mcg/actuation nasal spray Use 2 Sprays in each nostril once daily. cetirizine (ZYRTEC) 10 mg tablet Take 1 tablet by mouth once daily. diclofenac potassium (CATAFLAM) 50 mg tablet Take 1 tablet by mouth three times daily for 7 days. Take with food. albuterol (PROVENTIL) 5 mg/mL nebu Inhale 0.5 mL as instructed one time only for 1 dose. 1 DOSE NOW - BACK OFFICE. PLACE 0.5 ML PER DROPPER AND 2.5 ML OF NORMAL SALINE INTO RESERVOIR. FAMILY HISTORY Problem Relation Age of Onset - Cancer Mother thyroid - Cancer Maternal Grandmother thyroid - Hypertension Maternal Grandfather - Hypertension Maternal Grandmother - Cancer Father thyroid? Social History Substance Use Topics - Smoking status: Never Smoker - Smokeless tobacco: Never Used - Alcohol use 3.0 oz/week 2 Cans of Beer (12oz) per week ASSESSMENT/PLAN: 1. Right hand pain - ICD9: 729.5, ICD10: M79.641 - XR HAND GENERAL 3V PA/LAT/OBL RT No acute process - DICLOFENAC POTASSIUM 50 MG TABLET The patient is instructed to return or seek emergency treatment if symptoms become worse or with any acute change in condition. The patient verbalizes understanding and is in agreement with plan of care. Orin Cotton CNP XR HAND 3V PA/LAT/OBL Observed: 01/02/2018 Status: F Source: [facility] 11:41 AM [facility] REPOSITORY * * *Final Report* * * DATE OF EXAM: Jan 02 2018 11:41AM WOX [id number] - XR HAND 3V PA/LAT/OBL RT / PROCEDURE REASON: Pain in right hand * * * * Physician Interpretation * * * * PROCEDURE: Right hand INDICATION: Pain in right hand . TECHNIQUE: XR HAND 3V PA/LAT/OBL RT COMPARISON: None FINDINGS: No fractures or dislocations are seen. The bones, joint spaces and soft tissues are unremarkable. IMPRESSION: Negative Manager Technical Training: P[employer] Transcribe Date/Time: Jan 02 2018 12:01P Dictated by : KATARZYNA DOVER MD This examination was interpreted and the report reviewed and electronically signed by: KATARZYNA DOVER MD on Jan 02 2018 12:01PM EST [id number] PROGRESS Observed: 01/02/2018 Status: COMPLETED Source: [place] 11:31 AM [facility] REPOSITORY HNO ID: [id number] Author: Sherry Sharif (Rt), Tech Service: (none) Author Type: Vascular Specialists Type: Progress Notes Filed: 01/02/2018 11:41 AM Note Text: Radiology Service Progress Note PATIENT NAME: El Gross DATE OF SERVICE: January 02, 2018 TIME: 11:31 AM PATIENT IDENTITY VERIFICATION COMPLETED USING TWO (2) METHODS: Patient confirmed name verbally and Date of . PATIENT GENDER DATA: Male PATIENT RELEVANT IMPLANT DATA REVIEWED: Not Applicable RADIOLOGY DEPARTMENT: General X-ray: Exam(s) Completed: Upper Extremity X-Ray(s): Hand, right : PERIPHERAL IV DATA: Not applicable SIGNED BY: RT Annalee January 02, 2018 11:31 AM NINA Observed: 01/02/2018 Status: COMPLETED Source: [place] 10:30 AM [facility] REPOSITORY [facility] EL GROSS ([id number]) 1985 M Date Time Provider Department 01/02/18 10:30 AM ORIN COTTON [facility] During your visit today, we recorded the following information about you: Temperature Pulse Respiration Blood pressure 98 degrees 68/minute 16/minute 122/82 Weight 113.4 kg Orin Cotton 01/02/2018 12:05 PM Signed SPRAINS AND STRAINS BASIC INFORMATION Description: A strain is a stretched or torn muscle. A sprain is a stretched or torn ligament. Sprains occur most often in ankles, knees, or fingers, although any joint can be sprained. Sprained joints can function, but only with pain. Frequent Signs and Symptoms: - Pain or tenderness in the area of injury; severity varies with the extent of injury. - Swelling of the affected joint. - Redness or bruising in the area of injury, either immediately or several hours after injury. - Loss of normal mobility in the injured joint. Causes: Strains usually are associated with overuse injuries. Sprains usually occur secondary to trauma (fall, twisting injury or automobile accident). The ankel is injured most often because of its anatomical weakness, its exposed position, and the stress it sustains in athletic and recreational activities. It is difficult to differentiate sprains from strains. Risk Increases With: - Obesity . - Trauma. - Excessive exercise. - Poor conditioning. - Poor fitting shoes and high heeled shoes. - High-risk activities (skateboarding), contact spoints, ice and roller skating. Preventive Measures: - Maintain good level of physical fitness. - Wrap weak joints with support bandanges before strenuous activity. - Stretch muscles before and after exercise. - Strengthen weak muscles with rehabilitative exercises to prevent a recurrence. - Accident-proof your home. Expected Outcome: With appropriate treatment and rest, 6-8 weeks for recovery. May take longer depending on the severity of the injury. Possible Complications: - Permanent weakness if the sprain is severe or if a joint is sprained repeatedly. - Arthritis. TREATMENT General Measures: - Diagnostic tests may include x-rays of the injured area, or CT scan or MRI. -RICE therapy: rest, ice, compression, and elevation - Apply ice to the injured joint during the first [address] ice in a plastic bag and separate it from the skin with a thin towel. Hold it against the joint with your hand or an elastic bandage. Keep the ice pack on the joint up to 2 hours at a time either constantly or intermittently depending on your ability to tolerate the cold. Continue the ice treatment at 2-hour intervals for 24 hours. - After 24 hours, you may continue ice treatment or switch to heat. - To use heat, soak the joint in hot water or apply heat for 15 minutes every 2 hours or whenever possible. Don't apply heat during the first 24 hours. It may increase bleeding and swelling and prolong healing time. - Compression with an elastic (Marvin) bandage. - Whenever possible, elevate the joint (especially while sleeping) so fluid can drain and diminish swelling. -Surgery may be necessary to repair badly torn ligaments. - a cast may be necessary for severespains or following surgery. Following cast removal, you will wear support bandages for a while. - Air cast type devices are very effective. - Learn how to use crutches, if needed. Medication: - You may use non-prescription pain relievers, such as acetaminophen or ibuprofen. If the sprain is severe, a stronger pain relivere may be prescribed. - Avoid aspirin, as it may increase the tendency to bleed. Activity: - Allow the joint to rest 1 or 2 days. Then begin exercising the joint gently, without putting weight on it. - Physical therapy may be recommended to regain strength and normal use of the joint. NOTIFY OUR OFFICE IF - You or a family member has a sprained joint that won't bear weight or move normally. - Pain becomes intolerable. - Swelling or bruising increases, despite treatment. Copyright 1994 by [employer] Orin Cotton 01/02/2018 2:46 PM Signed Subjective HPI Pt presents with c/o right hand pain x 5 days after FOOSH. Pain and swelling to lateral right hand. +tenderness. +ecchymosis. No abrasions. Denies sensory changes. Full ROM. Hand grasp weaker than normal d/t swelling and pain. Has taken several doses of Aleve and applied ice prn. Review of Systems Constitutional: Negative for chills and fever. Musculoskeletal: Positive for falls. Objective Physical Exam Constitutional: He is oriented to person, place, and time and well-developed, well-nourished, and in no distress. No distress. Musculoskeletal: Right hand: He exhibits tenderness, bony tenderness and swelling. He exhibits normal range of motion, normal two-point discrimination, normal capillary refill, no deformity and no laceration. Normal sensation noted. Normal strength noted. Full active ROM against resistance. Hand grasp mildly decreased. Cap refill 2 sec. Radial pulse 2+. Sensory intact. Neurological: He is alert and oriented to person, place, and time. Skin: Skin is warm and dry. He is not diaphoretic. BP 122/82 Pulse 68 Temp 36.7 ?C (98 ?F) (Left Tympanic) Resp 16 Wt 113.4 kg (250 lb) BMI 34.38 kg/m? .Patient presents with: Musculoskeletal Problem: x 5 days right hand pain and swelling after injury PAST MEDICAL HISTORY Diagnosis Date - Obstructive sleep apnea - Palpitations - Seasonal allergies - Well adult exam PAST SURGICAL HISTORY Procedure Laterality Date - PAST SURGICAL HISTORY OF 02/2012 left foot surgery - PAST SURGICAL HISTORY OF 2009 repair tendon right hand ALLERGIES Bee Sting MEDICATIONS doxycycline monohydrate (MONODOX) 100 mg capsule Take 1 capsule by mouth twice daily for 10 days. benzonatate (TESSALON PERLE) 100 mg capsule Take 1-2 capsules tid prn albuterol HFA (PROAIR HFA) 90 mcg/actuation inhaler Inhale 2 Puffs as instructed every 4 hours as needed. fluticasone (FLONASE) 50 mcg/actuation nasal spray Use 2 Sprays in each nostril once daily. cetirizine (ZYRTEC) 10 mg tablet Take 1 tablet by mouth once daily. diclofenac potassium (CATAFLAM) 50 mg tablet Take 1 tablet by mouth three times daily for 7 days. Take with food. albuterol (PROVENTIL) 5 mg/mL nebu Inhale 0.5 mL as instructed one time only for 1 dose. 1 DOSE NOW - BACK OFFICE. PLACE 0.5 ML PER DROPPER AND 2.5 ML OF NORMAL SALINE INTO RESERVOIR. FAMILY HISTORY Problem Relation Age of Onset - Cancer Mother thyroid - Cancer Maternal Grandmother thyroid - Hypertension Maternal Grandfather - Hypertension Maternal Grandmother - Cancer Father thyroid? Social History Substance Use Topics - Smoking status: Never Smoker - Smokeless tobacco: Never Used - Alcohol use 3.0 oz/week 2 Cans of Beer (12oz) per week ASSESSMENT/PLAN: 1. Right hand pain - ICD9: 729.5, ICD10: M79.641 - XR HAND GENERAL 3V PA/LAT/OBL RT No acute process - DICLOFENAC POTASSIUM 50 MG TABLET The patient is instructed to return or seek emergency treatment if symptoms become worse or with any acute change in condition. The patient verbalizes understanding and is in agreement with plan of care. Orin Cotton CNP Referring Provider: SELF [[id number]] Allergies As of Date: 01/02/2018 Noted Allergy Reaction BEE STING 09/22/2012 7 - Swelling Comments: Local swelling and shortness of breath Date Reviewed: 01/02/2018 Reviewed by: Dana Sanchez LPN - Fully Assessed Reason for Visit: Musculoskeletal Problem [69] Cmt: x 5 days right hand pain and swelling after injury Primary Visit Diagnosis:Right hand pain [M79.641] Order(s):XR HAND GENERAL 3V PA/LAT/OBL RT [[id number]] Order #: [id number] FUTURE diclofenac potassium (CATAFLAM) 50 mg tabletTake 1 tablet by mouth three times daily for 7 days. Take with food.Disp: 21 tabletRfl: 0 Prescriptions as of 01/02/2018 Sig: DOXYCYCLINE MONOHYDRATE 100 M* Take 1 capsule by mouth twice* BENZONATATE 100 MG CAPSULE Take 1-2 capsules tid prn ALBUTEROL SULFATE HFA 90 MCG/* Inhale 2 Puffs as instructed * FLUTICASONE 50 MCG/ACTUATION * Use 2 Sprays in each nostril * CETIRIZINE 10 MG TABLET Take 1 tablet by mouth once d* DICLOFENAC POTASSIUM 50 MG TA* Take 1 tablet by mouth three * ALBUTEROL SULFATE CONCENTRATE* Inhale 0.5 mL as instructed o* Problem List As Of Date 01/02/2018 Noted Resolved Palpitations [R00.2] More... Well adult exam [Z00.00] Seasonal allergies [J30.2] Other instructions from your clinician: SPRAINS AND STRAINS BASIC INFORMATION Description: A strain is a stretched or torn muscle. A sprain is a stretched or torn ligament. Sprains occur most often in ankles, knees, or fingers, although any joint can be sprained. Sprained joints can function, but only with pain. Frequent Signs and Symptoms: - Pain or tenderness in the area of injury; severity varies with the extent of injury. - Swelling of the affected joint. - Redness or bruising in the area of injury, either immediately or several hours after injury. - Loss of normal mobility in the injured joint. Causes: Strains usually are associated with overuse injuries. Sprains usually occur secondary to trauma (fall, twisting injury or automobile accident). The ankel is injured most often because of its anatomical weakness, its exposed position, and the stress it sustains in athletic and recreational activities. It is difficult to differentiate sprains from strains. Risk Increases With: - Obesity . - Trauma. - Excessive exercise. - Poor conditioning. - Poor fitting shoes and high heeled shoes. - High-risk activities (skateboarding), contact spoints, ice and roller skating. Preventive Measures: - Maintain good level of physical fitness. - Wrap weak joints with support bandanges before strenuous activity. - Stretch muscles before and after exercise. - Strengthen weak muscles with rehabilitative exercises to prevent a recurrence. - Accident-proof your home. Expected Outcome: With appropriate treatment and rest, 6-8 weeks for recovery. May take longer depending on the severity of the injury. Possible Complications: - Permanent weakness if the sprain is severe or if a joint is sprained repeatedly. - Arthritis. TREATMENT General Measures: - Diagnostic tests may include x-rays of the injured area, or CT scan or MRI. -RICE therapy: rest, ice, compression, and elevation - Apply ice to the injured joint during the first [address] ice in a plastic bag and separate it from the skin with a thin towel. Hold it against the joint with your hand or an elastic bandage. Keep the ice pack on the joint up to 2 hours at a time either constantly or intermittently depending on your ability to tolerate the cold. Continue the ice treatment at 2-hour intervals for 24 hours. - After 24 hours, you may continue ice treatment or switch to heat. - To use heat, soak the joint in hot water or apply heat for 15 minutes every 2 hours or whenever possible. Don't apply heat during the first 24 hours. It may increase bleeding and swelling and prolong healing time. - Compression with an elastic (Marvin) bandage. - Whenever possible, elevate the joint (especially while sleeping) so fluid can drain and diminish swelling. -Surgery may be necessary to repair badly torn ligaments. - a cast may be necessary for severespains or following surgery. Following cast removal, you will wear support bandages for a while. - Air cast type devices are very effective. - Learn how to use crutches, if needed. Medication: - You may use non-prescription pain relievers, such as acetaminophen or ibuprofen. If the sprain is severe, a stronger pain relivere may be prescribed. - Avoid aspirin, as it may increase the tendency to bleed. Activity: - Allow the joint to rest 1 or 2 days. Then begin exercising the joint gently, without putting weight on it. - Physical therapy may be recommended to regain strength and normal use of the joint. NOTIFY OUR OFFICE IF - You or a family member has a sprained joint that won't bear weight or move normally. - Pain becomes intolerable. - Swelling or bruising increases, despite treatment. Copyright 1994 by [employer] Prescriptions ordered this encounter Disp Refills Start End DICLOFENAC POTASSIUM 50 MG TABLET 21 t* 0 01/02/2018 01/09/2018 Route: ORAL Sig: Take 1 tablet by mouth three times daily for 7 days. Take with food. Encounter Status:Closed by ORIN COTTON CNP on 01/02/18 XR CHEST 2V FRONTAL/LAT Observed: 12/28/2017 Status: F Source: [place] 12:59 PM [facility] REPOSITORY * * *Final Report* * * DATE OF EXAM: Dec 28 2017 12:59PM WOX [id number] - XR CHEST 2V FRONTAL/LAT / PROCEDURE REASON: Cough * * * * Physician Interpretation * * * * EXAMINATION: CHEST RADIOGRAPH (2 VIEW FRONTAL and LATERAL) Clinical History: Cough MQ: XC2_5 Comparison: Chest x-ray on 08/26/2017 RESULT: Lines, tubes, and devices: None. Lungs and pleura: Small lung volume due to inadequate inspiration. Triangular opacities demonstrated overlying the right lower lung, likely representing atelectasis in the right middle lobe. The left lung is clear. No pleural effusions or pneumothorax. Probably eventration of the right hemidiaphragm. Cardiomediastinal silhouette: The cardiac silhouette and mediastinal contour have been stable. Other: None. IMPRESSION: Triangular opacities in the right lung likely representing atelectasis. Manager Technical Training: [employer] Transcribe Date/Time: Dec 28 2017 1:19P Dictated by : MIRELA LEES MD This examination was interpreted and the report reviewed and electronically signed by: MIRELA LEES MD on Dec 28 2017 1:21PM EST [id number] Observed: 12/28/2017 Status: COMPLETED Source: [place] 12:51 PM [facility] REPOSITORY HNO ID: [id number] Author: Feliciano Mantilla (Rt) Service: (none) Author Type: Vascular Specialists Type: Progress Notes Filed: 12/28/2017 12:55 PM Note Text: Radiology Service Progress Note PATIENT NAME: El Gross DATE OF SERVICE: December 28, 2017 TIME: 12:51 PM PATIENT IDENTITY VERIFICATION COMPLETED USING TWO (2) METHODS: Patient confirmed name verbally and Date of . PATIENT GENDER DATA: Male PATIENT RELEVANT IMPLANT DATA REVIEWED: Not Applicable RADIOLOGY DEPARTMENT: General X-ray: Exam(s) Completed: Chest X-Ray PERIPHERAL IV DATA: Not applicable SIGNED BY: RT Annalee December 28, 2017 12:51 PM PROGRESS Observed: 12/28/2017 Status: COMPLETED Source: [place] 12:34 PM [facility] REPOSITORY HNO ID: [id number] Author: Katy Main Service: (none) Author Type: Nurse Practitioner Type: Progress Notes Filed: 12/28/2017 1:36 PM Note Text: Subjective The history is provided by the patient. No high school foreign language tutor was used. Cough Associated symptoms include sore throat. Pertinent negatives include no chest pain, no chills, no ear pain, no headaches, no myalgias, no shortness of breath and no wheezing. HPI El Gross is a 32 year old male who presents today for CC of cough and congestion This started 3 days ago. He is also having sore throat, hoarse voice, and bloody nose. Symptoms are worsened by nothing. He has tried no treatment or medications. Risk factors none known. PMH bronchitis, seasonal allergies. BP 100/80 Pulse 90 Temp 37.2 ?C (98.9 ?F) (Left Tympanic) Resp 18 Wt 112 kg (247 lb) SpO2 98% BMI 33.97 kg/m? ALLERGIES Allergen Reactions - Bee Sting Swelling Local swelling and shortness of breath ACTIVE PROBLEM LIST Palpitations Well Adult Exam Seasonal Allergies Family History Problem Relation Age of Onset - Cancer Mother thyroid - Cancer Maternal Grandmother thyroid - Hypertension Maternal Grandfather - Hypertension Maternal Grandmother - Cancer Father thyroid? 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 Negative for chills, fever and malaise/fatigue. HENT: Positive for congestion, sinus pain and sore throat. Negative for ear pain. Respiratory: Positive for cough. Negative for sputum production, shortness of breath and wheezing. Cardiovascular: Negative for chest pain. Musculoskeletal: Negative for myalgias. Skin: Negative for rash. Neurological: Negative for headaches. Objective Physical Exam Constitutional: He is well-developed, well-nourished, and in no distress. HENT: Head: Normocephalic and atraumatic. Right Ear: Tympanic membrane, external ear and ear canal normal. Tympanic membrane is not injected, not erythematous, not retracted and not bulging. No middle ear effusion. Left Ear: Tympanic membrane, external ear and ear canal normal. Tympanic membrane is not injected, not erythematous, not retracted and not bulging. No middle ear effusion. Nose: Mucosal edema and rhinorrhea present. Right sinus exhibits no maxillary sinus tenderness and no frontal sinus tenderness. Left sinus exhibits no maxillary sinus tenderness and no frontal sinus tenderness. Mouth/Throat: Uvula is midline and mucous membranes are normal. Posterior oropharyngeal erythema present. No oropharyngeal exudate, posterior oropharyngeal edema or tonsillar abscesses. Clear post nasal drainage Eyes: Conjunctivae and EOM are normal. Pupils are equal, round, and reactive to light. Neck: Normal range of motion. Cardiovascular: Normal rate, regular rhythm and normal heart sounds. Pulmonary/Chest: Effort normal. No respiratory distress. He has decreased breath sounds in the right middle field. He has no wheezes. He has no rhonchi. He has rales in the right middle field. A rattling cough was noted during this encounter. Talking in full sentences. Handling secretions without drooling. Lips and nailbeds are pink without cyanosis. Lymphadenopathy: Head (right side): No submental, no submandibular, no tonsillar, no preauricular and no posterior auricular adenopathy present. Head (left side): No submental, no submandibular, no tonsillar, no preauricular and no posterior auricular adenopathy present. He has no cervical adenopathy. Right cervical: No posterior cervical adenopathy present. Left cervical: No posterior cervical adenopathy present. Right: No supraclavicular adenopathy present. Left: No supraclavicular adenopathy present. Skin: Skin is warm and dry. Psychiatric: Affect normal. Nursing note and vitals reviewed. ASSESSMENT/PLAN: 1. Cough - ICD9: 786.2, ICD10: R05 (primary diagnosis) Mild atelectasis on right lung Treatment with doxycycline for 10 days Tessalon Perles as prescribed for coughing, do not combine this with other cough and cold medications Follow up with PCP for recheck in 2 months - XR CHEST 2V FRONTAL/LAT - interpreted by Mirela Lees MD IMPRESSION: Triangular opacities in the right lung likely representing atelectasis. RESULT: Lines, tubes, and devices: ?None. Lungs and pleura: Small lung volume due to inadequate inspiration. ? Triangular opacities demonstrated overlying the right lower lung, likely representing atelectasis in the right middle lobe. ?The left lung is clear. ?No pleural effusions or pneumothorax. ?Probably eventration of the right hemidiaphragm. Cardiomediastinal silhouette: ?The cardiac silhouette and mediastinal contour have been stable. Other: ?None. 2. Nasal congestion - ICD9: 478.19, ICD10: R09.81 Flonase 1 spray each nostril every other day Tylenol (generic acetaminophen) 500 mg-2 tabs every 8 hrs. as needed for fever and aches Ibuprofen 600 mg (3-200mg tablets) every 6 hours -Sudafed (generic is fine), behind the counter, 2x30 mg tabs twice daily as needed for congestion -Mucinex (generic is fine) 1200 mg twice daily to help with cough and to thin out mucus 3. Sore throat - ICD9: 462, ICD10: J02.9 - suspect viral - Discussed supportive care treatment with fluids, rest and analgesia. - The patient may also use warm salt water gargles, throat lozenges and/or OTC throat spray as needed. - The patient should follow up in one week if symptoms persist or worsen - Call back if drooling, increased temperature, symptoms of dehydration and/or still sick in one week * Seek medical care immediately, call 911, go to ER if you have chest pain, difficulty breathing, shortness of breath, inability to swallow. Diagnosis and treatment plan were discussed and questions were answered to the patient's satisfaction. Pt acknowledged understanding of concepts and follow up plan. Specific signs and symptoms that would indicate the need for higher level of care were discussed in detail warranting prompt ER evaluation. ISMAEL Her Observed: 12/28/2017 Status: COMPLETED Source: [place] 12:30 PM [facility] REPOSITORY Office Visit (UCWSTR) EL GROSS ([id number]) 1985 M Date Time Provider Department 12/28/17 12:30 PM KATY MAIN (KVNG) [facility] During your visit today, we recorded the following information about you: Temperature Pulse Respiration Blood pressure 98.9 degrees 90/minute 18/minute 100/80 Weight 112 kg Katy Main APRN.CNP 12/28/2017 1:36 PM Signed Subjective The history is provided by the patient. No high school foreign language tutor was used. Cough Associated symptoms include sore throat. Pertinent negatives include no chest pain, no chills, no ear pain, no headaches, no myalgias, no shortness of breath and no wheezing. HPI El Gross is a 32 year old male who presents today for CC of cough and congestion This started 3 days ago. He is also having sore throat, hoarse voice, and bloody nose. Symptoms are worsened by nothing. He has tried no treatment or medications. Risk factors none known. PMH bronchitis, seasonal allergies. BP 100/80 Pulse 90 Temp 37.2 ?C (98.9 ?F) (Left Tympanic) Resp 18 Wt 112 kg (247 lb) SpO2 98% BMI 33.97 kg/m? ALLERGIES Allergen Reactions - Bee Sting Swelling Local swelling and shortness of breath ACTIVE PROBLEM LIST Palpitations Well Adult Exam Seasonal Allergies Family History Problem Relation Age of Onset - Cancer Mother thyroid - Cancer Maternal Grandmother thyroid - Hypertension Maternal Grandfather - Hypertension Maternal Grandmother - Cancer Father thyroid? 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 Negative for chills, fever and malaise/fatigue. HENT: Positive for congestion, sinus pain and sore throat. Negative for ear pain. Respiratory: Positive for cough. Negative for sputum production, shortness of breath and wheezing. Cardiovascular: Negative for chest pain. Musculoskeletal: Negative for myalgias. Skin: Negative for rash. Neurological: Negative for headaches. Objective Physical Exam Constitutional: He is well-developed, well-nourished, and in no distress. HENT: Head: Normocephalic and atraumatic. Right Ear: Tympanic membrane, external ear and ear canal normal. Tympanic membrane is not injected, not erythematous, not retracted and not bulging. No middle ear effusion. Left Ear: Tympanic membrane, external ear and ear canal normal. Tympanic membrane is not injected, not erythematous, not retracted and not bulging. No middle ear effusion. Nose: Mucosal edema and rhinorrhea present. Right sinus exhibits no maxillary sinus tenderness and no frontal sinus tenderness. Left sinus exhibits no maxillary sinus tenderness and no frontal sinus tenderness. Mouth/Throat: Uvula is midline and mucous membranes are normal. Posterior oropharyngeal erythema present. No oropharyngeal exudate, posterior oropharyngeal edema or tonsillar abscesses. Clear post nasal drainage Eyes: Conjunctivae and EOM are normal. Pupils are equal, round, and reactive to light. Neck: Normal range of motion. Cardiovascular: Normal rate, regular rhythm and normal heart sounds. Pulmonary/Chest: Effort normal. No respiratory distress. He has decreased breath sounds in the right middle field. He has no wheezes. He has no rhonchi. He has rales in the right middle field. A rattling cough was noted during this encounter. Talking in full sentences. Handling secretions without drooling. Lips and nailbeds are pink without cyanosis. Lymphadenopathy: Head (right side): No submental, no submandibular, no tonsillar, no preauricular and no posterior auricular adenopathy present. Head (left side): No submental, no submandibular, no tonsillar, no preauricular and no posterior auricular adenopathy present. He has no cervical adenopathy. Right cervical: No posterior cervical adenopathy present. Left cervical: No posterior cervical adenopathy present. Right: No supraclavicular adenopathy present. Left: No supraclavicular adenopathy present. Skin: Skin is warm and dry. Psychiatric: Affect normal. Nursing note and vitals reviewed. ASSESSMENT/PLAN: 1. Cough - ICD9: 786.2, ICD10: R05 (primary diagnosis) Mild atelectasis on right lung Treatment with doxycycline for 10 days Tessalon Perles as prescribed for coughing, do not combine this with other cough and cold medications Follow up with PCP for recheck in 2 months - XR CHEST 2V FRONTAL/LAT - interpreted by Mirela Lees MD IMPRESSION: Triangular opacities in the right lung likely representing atelectasis. RESULT: Lines, tubes, and devices: ?None. Lungs and pleura: Small lung volume due to inadequate inspiration. ? Triangular opacities demonstrated overlying the right lower lung, likely representing atelectasis in the right middle lobe. ?The left lung is clear. ?No pleural effusions or pneumothorax. ?Probably eventration of the right hemidiaphragm. Cardiomediastinal silhouette: ?The cardiac silhouette and mediastinal contour have been stable. Other: ?None. 2. Nasal congestion - ICD9: 478.19, ICD10: R09.81 Flonase 1 spray each nostril every other day Tylenol (generic acetaminophen) 500 mg-2 tabs every 8 hrs. as needed for fever and aches Ibuprofen 600 mg (3-200mg tablets) every 6 hours -Sudafed (generic is fine), behind the counter, 2x30 mg tabs twice daily as needed for congestion -Mucinex (generic is fine) 1200 mg twice daily to help with cough and to thin out mucus 3. Sore throat - ICD9: 462, ICD10: J02.9 - suspect viral - Discussed supportive care treatment with fluids, rest and analgesia. - The patient may also use warm salt water gargles, throat lozenges and/or OTC throat spray as needed. - The patient should follow up in one week if symptoms persist or worsen - Call back if drooling, increased temperature, symptoms of dehydration and/or still sick in one week * Seek medical care immediately, call 911, go to ER if you have chest pain, difficulty breathing, shortness of breath, inability to swallow. Diagnosis and treatment plan were discussed and questions were answered to the patient's satisfaction. Pt acknowledged understanding of concepts and follow up plan. Specific signs and symptoms that would indicate the need for higher level of care were discussed in detail warranting prompt ER evaluation. Katy Main APRN.KVNG Main APRN.KVNG 12/28/2017 1:35 PM Addendum ASSESSMENT/PLAN: 1. Cough - ICD9: 786.2, ICD10: R05 (primary diagnosis) Mild atelectasis on right lung Treatment with doxycycline for 10 days Migel Yañez as prescribed for coughing, do not combine this with other cough and cold medications Follow up with PCP for recheck in 2 months - XR CHEST 2V FRONTAL/LAT 2. Nasal congestion - ICD9: 478.19, ICD10: R09.81 Flonase 1 spray each nostril every other day Tylenol (generic acetaminophen) 500 mg-2 tabs every 8 hrs. as needed for fever and aches Ibuprofen 600 mg (3-200mg tablets) every 6 hours -Sudafed (generic is fine), behind the counter, 2x30 mg tabs twice daily as needed for congestion -Mucinex (generic is fine) 1200 mg twice daily to help with cough and to thin out mucus 3. Sore throat - ICD9: 462, ICD10: J02.9 - suspect viral - Discussed supportive care treatment with fluids, rest and analgesia. - The patient may also use warm salt water gargles, throat lozenges and/or OTC throat spray as needed. - The patient should follow up in one week if symptoms persist or worsen - Call back if drooling, increased temperature, symptoms of dehydration and/or still sick in one week * Seek medical care immediately, call 911, go to ER if you have chest pain, difficulty breathing, shortness of breath, inability to swallow. Referring Provider: SELF [200] Allergies As of Date: 12/28/2017 Noted Allergy Reaction BEE STING 09/22/2012 7 - Swelling Comments: Local swelling and shortness of breath Date Reviewed: 12/28/2017 [facility] Jose David - Fully Assessed Reason for Visit: Chest Congestion [236] Cough [28] Primary Visit Diagnosis:Cough [R05] Other Visit Diagnoses:Nasal congestion [R09.81] Sore throat [J02.9] Order(s):XR CHEST 2V FRONTAL/LAT [[id number]] Order #: [id number]. #:[id number] doxycycline monohydrate (MONODOX) 100 mg capsuleTake 1 capsule by mouth twice daily for 10 days.Disp: 20 capsuleRfl: 0 benzonatate (TESSALON PERLE) 100 mg capsuleTake 1- 2 capsules tid prnDisp: 30 capsuleRfl: 0 Prescriptions as of 12/28/2017 Sig: ALBUTEROL SULFATE HFA 90 MCG/* Inhale 2 Puffs as instructed * FLUTICASONE 50 MCG/ACTUATION * Use 2 Sprays in each nostril * CETIRIZINE 10 MG TABLET Take 1 tablet by mouth once d* DOXYCYCLINE MONOHYDRATE 100 M* Take 1 capsule by mouth twice* BENZONATATE 100 MG CAPSULE Take 1-2 capsules tid prn ALBUTEROL SULFATE CONCENTRATE* Inhale 0.5 mL as instructed o* Problem List As Of Date 12/28/2017 Noted Resolved Palpitations [R00.2] More... Well adult exam [Z00.00] Seasonal allergies [J30.2] Other instructions from your clinician: ASSESSMENT/PLAN: 1. Cough - ICD9: 786.2, ICD10: R05 (primary diagnosis) Mild atelectasis on right lung Treatment with doxycycline for 10 days Tessalon Perles as prescribed for coughing, do not combine this with other cough and cold medications Follow up with PCP for recheck in 2 months - XR CHEST 2V FRONTAL/LAT 2. Nasal congestion - ICD9: 478.19, ICD10: R09.81 Flonase 1 spray each nostril every other day Tylenol (generic acetaminophen) 500 mg-2 tabs every 8 hrs. as needed for fever and aches Ibuprofen 600 mg (3-200mg tablets) every 6 hours -Sudafed (generic is fine), behind the counter, 2x30 mg tabs twice daily as needed for congestion -Mucinex (generic is fine) 1200 mg twice daily to help with cough and to thin out mucus 3. Sore throat - ICD9: 462, ICD10: J02.9 - suspect viral - Discussed supportive care treatment with fluids, rest and analgesia. - The patient may also use warm salt water gargles, throat lozenges and/or OTC throat spray as needed. - The patient should follow up in one week if symptoms persist or worsen - Call back if drooling, increased temperature, symptoms of dehydration and/or still sick in one week * Seek medical care immediately, call 911, go to ER if you have chest pain, difficulty breathing, shortness of breath, inability to swallow. Prescriptions ordered this encounter Disp Refills Start End DOXYCYCLINE MONOHYDRATE 100 MG CAPSU* 20 c* 0 12/28/2017 01/07/2018 Route: ORAL Sig: Take 1 capsule by mouth twice daily for 10 days. BENZONATATE 100 MG CAPSULE 30 c* 0 12/28/2017 Sig: Take 1-2 capsules tid prn Medications Discontinued During This Encounter Rtcvxgsyzhealsg-Viwjfwnvr-UC (BROMFE* 118 * 0 08/25/2017 12/28/2017 Route: ORAL Sig: Take 5 mL by mouth four times daily as needed. Disc: Course of therapy completed Letter Text Katy Main APRN.CNP Urgent Care [address] [facility] [address] Dept: [phone] 12/28/2017 El Gross [address] [place] [address] To Whom it May Concern: This is to certify that El Gross was seen at our office for medical care. El may return to work on 12.28.2017. If you have any questions please feel free to call. Sincerely: Katy Main APRN.CNP Encounter Status:Closed by KATY MAIN CNP on 12/28/17 ALLERGIES ALLERGIES DATE TYPE / CODE NAME / CODE REACTION SEVERITY SOURCE 09/18/2018 Drug bee venom Anaphylaxis Unknown [facility] Allergy/416 protein ([facility] 352312(SN bee)/[id number] Hospital ED CT) 5(RXNORM) Repository 09/22/2012 Environ/420 BEE STING SWELLING [facility] [address]503([facility] Other [place] ED CT) Repository NG/[id number] BEE STING [facility] 6([facility] CT) Repository ENCOUNTERS ENCOUNTERS ADMIT/DISCHARGE ACCOUNT NUMBER ADMITTING ENCOUNTER LOCATION SOURCE CLASS 09/18/2018/09/18/19 [id number] Emergency [address] ding:ED Repository 05/20/2018/05/20/20 [id number] Emergency [address] [place] Repository 05/20/2018/05/20/20 [id number] Emergency [address] System MEDICAL Repository CENTERBuildi ng:AKORRoom: POOLBed: 02 05/20/2018/05/20/20 [id number] Emergency [address] ding:ED Repository 05/19/2018/05/20/20 [id number] Emergency [address] Repository 01/02/2018/01/03/20 [id number] Ambulatory [address] Repository 01/02/2018/01/04/20 [id number] Ambulatory [address] Repository 12/28/2017/12/29/19 [id number] Ambulatory [address] Repository 12/28/2017/12/30/19 [id number] Ambulatory [address] Repository PAYERS PAYERS ENCOUNTER GUARANTOR PAYER SUBSCRIBER SOURCE 09/18/2018 EL G Primary EL G [facility] [id number] FRIAR Insurance:CIGNAPolicy CARSONDOB: [facility] acute hospital, [facility]: [id number] [address]Wzg: [id number] Repository Date:4527-76-09II [address] [address]RI: 09/18/2018 Secondary NOT GIVENUNK [place] Insurance:SELF PAY [facility] Number: Effective Repository Date:2018-09-18 05/20/2018 EL G Primary EL G [place] [facility] CARSONDOB: Insurance:CIGNA PAYER CARSONDOB: [facility] [employer]IONS OAPPolicy [id number] Repository KRISH VARGAS, Number: [place] [address]Zlv: [id number] Date: () 05/20/2018 EL GENE Primary EL GENE [place] [id number] KRISH Insurance:CIGNAPolicy CARSONDOB: [place] Number: [id number] [address]Ifr: 330 [id number] Repository [phone] () Date:8274-10-47[address], [place] [address]TC: 05/20/2018 Secondary NOT GIVENUNK [facility] Insurance:SELF PAY [facility] Number: Effective Repository Date:2018-05-20
== END 2018-09-18 20:24 | disposition home or self-care (01) ==
PROVIDERS: Emergency Provider Emergency Medicine
DX: S50.11XA Contusion of right forearm, initial encounter (principal); W10.9XXA Fall (on) (from) unspecified stairs and steps, initial encounter; Y93.9 Activity, unspecified; Y92.89 Other specified places as the place of occurrence of the external cause; Y99.9 Unspecified external cause status
CPT/HCPCS: 73090; 99283

== ENCOUNTER → 2019-03-27 09:09 | Outpatient (CLI) | payer OTHER, SELFPAY ==
[2019-03-27 10:27] LABS: Absolute Lymphocyte Count 1.62 X10^3/uL (0.83-4.51); Absolute Neutrophil Count 6.3 X10^3/uL (2.0-7.7); Basophil# 0.03 X10^3/uL; Basophil% 0.3 % (0-1); Eosinophils% 6.3 % (0-5); Hematocrit 44.9 % (40-54); Hemoglobin 14.6 g/dL (13.0-16.5); Lymphocyte # 1.62 X10^3/ul (4.0); Lymphocyte % 17.1 % (19-41); Mean Corp Hgb Conc 32.5 g/dL (32-36); Mean Corpuscular Hgb 29.5 pg (27.0-32.0); Mean Corpuscular Volume 90.7 fL (80-94); Mean Platelet Vol. 10.1 fl (6.2-12.0); Monocyte# 0.88 X10^3/uL; Monocyte% 9.3 % (0-10); NRBC Flagged by Analyzer 0 % (0-5); Neutrophil # 6.27 X10^3/uL (2.7-7.7); Neutrophil % 66.5 % (47-70); Platelet Count 262 K/mm3 (150-450); RBC Distribution Width CV 11.9 % (11.6-14.6); Red Blood Count 4.95 M/mm3 (4.6-6.2); White Blood Count 9.5 K/mm3 (4.4-11.0)
[2019-03-27 10:39] LABS: Anion Gap 7 (5-15); BUN 13 mg/dL (7-18); BUN/Creat Ratio 15.2 RATIO (10-20); Chloride 106 mmol/L (98-107); Creatinine, Serum 0.85 mg/dL (0.70-1.30); EST Glomerular Filtration Rate 108 mL/min (>60); Est Glom Filt Rate - Afr Amer 131 mL/min (>60); Glucose 86 mg/dL (74-106); Potassium 3.6 mmol/L (3.5-5.1); Sodium Level 142 mmol/L (136-145); Uric Acid 8.4 mg/dL (3.5-7.2)
[2019-03-27 18:42] LABS: Body Fluid QC Type(s) BF1Q; Source- Body Fluid SYNOVIAL
[2019-03-27 18:49] LABS: CRYSTALS, BODY FLUID MONOSODIUM URATE
[2019-03-29 15:20] LABS: Pathologist Review Reviewed
== END ==
LOC: MTLAB 09:11
PROVIDERS: Referring Provider Podiatrist; Visit Provider Podiatrist
DX: M10.9 Gout, unspecified (principal)
CPT/HCPCS: 36415; 80048; 84550; 85025; 87070; 87075; 87205; 89060

== ENCOUNTER → 2020-10-29 13:27 | Outpatient (CLI) | payer SELFPAY ==
[2020-09-23 15:25] VITALS: BMI 33.0
[2020-10-29 13:56] LABS: Lipase 131 U/L (73-393)
== END ==
PROVIDERS: PCP Student in an Organized Health Care Education/Training Program; Visit Provider Physician Assistant
DX: R10.11 Right upper quadrant pain (principal)
CPT/HCPCS: 83690

== ENCOUNTER 2020-12-06 21:48 | Emergency (ER) | payer SELFPAY ==
[2020-09-23 15:25] VITALS: BMI 33.0
[2020-12-06 21:49] VITALS: BP 157/90; PULSE 100; RESP 18; TEMP 36.6; O2SAT 100; BMI 33.0
[2020-12-06 22:03] VITALS: PULSE 91; RESP 15; O2SAT 98
--- NOTE | 2020-12-06 22:03 | ED.DCSUM_ITS ---
- ER Visit Summary Date of Service: 12/06/20 Chief Complaint: [Rash] History of Present Illness: The patient is a 35 M [presents to the emergency department complaint of a rash for the last 2 days. Patient states that initially the rash started on his neck and now seems to spread to the upper extremities and onto his chest. He denies any new soaps or detergents or allergens. Patient states that he had his gallbladder out 2 weeks ago. Patient denies lip or tongue swelling or difficulty breathing. He describes the rash as burning and itching. Patient not currently taking any medications.] Physical Examination: [HEENT-PERRLA, EOMI. Cranial nerves II through XII grossly intact. TMs clear. Mucous membranes moist. No adenopathy. Cardiovascular-regular rate and rhythm without murmur or ectopy Lungs-clear to auscultation, chest wall stable without crepitus or subcu emph ysema Abdomen-normoactive bowel sounds, soft, nontender, no rebound or rigidity, no peritoneal signs. Skin exam-evaluation of the neck and upper anterior chest reveals a slightly raised erythematous diffuse rash. Patient also has several lesions in the antecubital fossa's bilaterally. Rash appears typical of a contact dermatitis. No vesicles noted. No petechiae noted. Extremities-intact ?4, normal range of motion, normal pulses, atraumatic] Test Results: [None indicated] Emergency Department Course and Treatment: [Patient was given prednisone 60 mg p.o.] Treatment Plan: [Patient will be given a prescription for prednisone and he is advised to take Benadryl for itching.] Disposition: [Discharged home in stable condition] Impression: [Dermatitis] This note was generated with [employer] dictation software. It may contain incorrect words, spelling, and punctuation that were not noted in review of the chart prior to signing ED Disposition - Plan for ED Patient: Referrals: Simba Horton DO [Primary Care Provider] -
--- NOTE | 2020-12-06 22:06 | DCINST.ED_ITS ---
ED Disposition - Plan for ED Patient: Instructions: ED Contact Dermatitis Prescriptions: Prednisone [Deltasone] 20 mg PO BID #10 tablet Transmission Status: Pending to [id number] Referrals: Simba Horton DO [Primary Care Provider] - 3-5 Days
[2020-12-06] MEDS: predniSONE 20 MG Tablet 60 MG PO (22:26)
[2020-12-06] MEDS: DiphenhydrAMINE 25 MG Capsule PO (22:26)
== END 2020-12-06 22:33 | disposition home or self-care (01) ==
LOC: ED 22:09
PROVIDERS: Emergency Provider Emergency Medicine; PCP Student in an Organized Health Care Education/Training Program
DX: L30.9 Dermatitis, unspecified (principal)
CPT/HCPCS: 99283

== ENCOUNTER 2021-04-13 00:33 | Emergency (ER) | payer MEDICARE, SELFPAY ==
[2021-04-13 00:38] VITALS: BP 144/84; PULSE 111; RESP 20; TEMP 38.4; O2SAT 96; BMI 31.4
--- NOTE | 2021-04-13 00:52 | EDS_ITS ---
HPI HPI - URI History of Present Illness Chief Complaint: Cold Sx Narrative Narrative: 36-year-old male presenting with fever, chills, body aches, loss of smell since yesterday. Patient does not have any known sick contacts except for his mother and [id number] who were last seen 14 days ago. They believe they currently have Covid. He has not had any contact with others. Patient denies chest pain. He states that he had a fever at home and woke up his to come to the emergency room. He did not take Tylenol or ibuprofen prior to arrival. Patient states that he believes he had Covid in July 2019 but is unsure because he was not tested. Patient has not had any known Covid 19 infection. Patient states that he did not have any interest in the vaccine and he states that his primary care provider recommended that he did not get vaccinated be cause he is young and otherwise healthy. ROS [facility] ED Constitutional Constitutional ED: Reports chills and fever(s) Eyes Eyes: Denies blurry vision or diplopia ENT ENT ED: Denies rhinorrhea or sore throat Cardiovascular Cardiovascular: Denies chest pain or palpitations Respiratory/Chest Respiratory/Chest: Reports cough; Denies dyspnea Gastrointestinal Gastrointestinal: Denies abdominal pain, nausea or vomiting Genitourinary Genitourinary ED: Denies dysuria or hematuria Musculoskeletal Musculoskeletal: Reports myalgias; Denies arthralgias, back pain or neck pain Integumentary Denies Abrasions or rash Neurologic Neurologic: Reports headache(s); Denies paresthesias or weakness PFSH PFS Medical History Asthma Gout Home Medications cetirizine [Zyrtec] 10 mg PO DAILY 04/13/21 [History Last Taken Unknown] omeprazole 40 mg PO DAILY 04/13/21 [History Last Taken Unknown] Allergy/AdvReac Type Severity Reaction Status Date / Time bee venom protein (honey bee) Allergy Anaphylaxis Verified 04/13/21 00:35 SURGICAL GLUE Allergy Rash Uncoded 04/13/21 00:35 Surgical History History of esophagogastroduodenoscopy (EGD) Social History Smoking Status: Never smoker alcohol intake: never EXAM Physical Exam Const Vital Signs: 04/13/21 00:38 04/13/21 00:59 Temperature 101.2 F H 101.2 F H Temperature Source Temporal Temporal Pulse Rate 111 H 111 H Respiratory Rate 20 H 20 H Respiratory Effort Normal Blood Pressure 144/84 H 144/84 H Blood Pressure Mean 104 104 Pulse Ox 96 96 Oxygen Delivery Method Room Air Room Air Positive well nourished General Appearance ED: NAD; Negative for pallor HEENT Reports moist mucous membranes normocephalic and atraumatic Eyes PERRL and EOMs intact bilaterally General Eye ED: Negative for pale conjunctiva or scleral icterus Resp normal respiratory effort and clear to auscultation bilaterally Cardio Rate: tachycardic Rhythm: regular rhythm Neuro oriented x3, CN's II-XII intact bilaterally and no sensory deficits noted Sensorium / Orientation: alert Motor Exam: strength 5/5 throughout Psych mental status grossly normal Skin General Skin Exam: Negative for jaundice or pallor Lesions: no lesions Rashes: no rashes MDM MDM MDM Narrative Medical decision making narrative: Patient presenting with cough, fevers, myalgias, loss of ability to smell. Patient's rapid Covid is positive. Patient's vital signs are stable he is given Tylenol for his fever. He is denying any sort of chest pain. Chest x-ray on my interpretation shows no acute cardiopulmonary process and the radiologist agree. Radiologist does also state that there is a 3 cm opacity projecting over the right midlung and recommended follow-up CT for evaluation. Patient counseled on this. I do not believe he needs an emergent CT for this. Patient is given quarantine precautions. Is given a work note for work. He is counseled on new or worsening symptoms that require him to come back to the ER for reevaluation. He will follow up with his PCP otherwise. Impression: 1. COVID-19 pneumonitis 2. Lung nodule Radiography Diagnostic Testing: Radiology Impression Chest X-Ray 04/13/21 01:01 IMPRESSION: Round 3 cm opacity projecting over the right midlung. Recommend follow-up CT chest for further evaluation to exclude underlying nodule. The lungs otherwise are clear. Electronically Signed: Rc Oneal MD at 1:29 EDT Tel , Service support , Discharge Plan Triage Chief Complaint: Cold Sx ED Provider: Josh Lord Dx/Rx/DC Orders Instructions: Coronavirus Disease 2019 (COVID-19): Caring for Yourself or Others, ED Pulmonary Nodule, Solitary Prescriptions: No Action cetirizine [Zyrtec] 10 mg Tablet 10 mg PO DAILY RF: 0 omeprazole 40 mg Capsule,Delayed Release(Dr/Ec) 40 mg PO DAILY RF: 0 Primary Care Provider: Simba Horton Referrals: Simba Horton DO [Primary Care Provider] - Disposition Disposition: Home, Self Care Discharge Date/Time: 04/13/21 02:35
[2021-04-13 00:59] VITALS: BP 144/84; PULSE 111; RESP 20; TEMP 38.4; O2SAT 96
--- NOTE | 2021-04-13 01:01 | RAD_ITS ---
STUDY: X-RAY CHEST REASON FOR EXAM: Male, 36 years old. fever TECHNIQUE: AP portable COMPARISON: None. FINDINGS: The lungs demonstrate low lung inspiration with accentuation of bronchovascular markings.. There is no demonstrated pleural abnormality. There is a round 3 cm opacity projecting over the right midlung. Normal size heart. Normal mediastinum and juan david. Normal visualized pulmonary arteries. Normal visualized aortic arch and descending thoracic aorta. Normal visualized thoracic spine. Normal visualized ribs, clavicles, and shoulders. There is no demonstrated abnormality of the visualized soft tissue structures of the upper abdomen. RAD/Chest 1 View (Portable) IMPRESSION: Round 3 cm opacity projecting over the right midlung. Recommend follow-up CT chest for further evaluation to exclude underlying nodule. The lungs otherwise are clear. Electronically Signed: Rc Oneal MD at 1:29 EDT Tel , Service support ,
[2021-04-13] MEDS: Acetaminophen 500 MG Tablet 1000 MG PO (01:22)
== END 2021-04-13 02:35 | disposition home or self-care (01) ==
PROVIDERS: Emergency Provider Student in an Organized Health Care Education/Training Program; PCP Student in an Organized Health Care Education/Training Program
DX: U07.1 COVID-19 (principal); J12.82 Pneumonia due to coronavirus disease 2019; R91.1 Solitary pulmonary nodule
CPT/HCPCS: 71045; 87426; 99283

== ENCOUNTER 2021-05-04 10:35 | Emergency (ER) | payer SELFPAY ==
[2021-05-04 10:36] VITALS: BP 146/100; PULSE 80; RESP 17; TEMP 36.2; O2SAT 99; BMI 32.5
--- NOTE | 2021-05-04 11:00 | EDS_ITS ---
HPI HPI - GI History of Present Illness Chief Complaint: Abd Pain Informant: patient Narrative Narrative: Presents with abdominal cramping vomiting diarrhea started less than 2 hours ago. He was at the gym when he started feeling nauseous. Went to the restroom with diarrhea total 5 episodes. 2 episodes of vomiting. No hematemesis or hematochezia. Last meal was yesterday eating [employer] pizza. Cholecystectomy 2 months ago. Significant other ate the same pizza and not ill. Denies recent antibiotics. Denies fevers. Denies urinary symptoms. He had Zofran at home for which he took a dose improving his nausea symptoms. Curr ently having cramping. PFSH PFS Medical History Asthma Gout Home Medications cetirizine [Zyrtec] 10 mg PO DAILY 04/13/21 [History Last Taken Unknown] omeprazole 40 mg PO DAILY 04/13/21 [History Last Taken Unknown] hyoscyamine sulfate [Levsin/SL] 0.125 mg SUBLINGUAL Q6H #10 tab 05/04/21 [Rx Last Taken Unknown] ondansetron 4 mg PO Q6H PRN #10 tab 05/04/21 [Rx Last Taken Unknown] Allergy/AdvReac Type Severity Reaction Status Date / Time bee venom protein (honey bee) Allergy Anaphylaxis Verified 05/04/21 10:39 SURGICAL GLUE Allergy Rash Uncoded 05/04/21 10:39 Surgical History History of esophagogastroduodenoscopy (EGD) Social History Smoking Status: Never smoker alcohol intake: never ROS ROS ED Constitutional Constitutional ED: Denies chills, fever(s) or sweats Eyes Eyes: Denies change in vision ENT ENT ED: Denies dysphagia or sore throat Cardiovascular Cardiovascular: Denies chest pain, leg edema, palpitations or racing heartbeat Respiratory/Chest Respiratory/Chest: Denies cough, dyspnea or dyspnea on exertion Gastrointestinal Gastrointestinal: Reports abdominal pain, diarrhea, nausea and vomiting Genitourinary Genitourinary ED: Denies dysuria, hematuria or urinary frequency Musculoskeletal Musculoskeletal: Denies back pain, extremity pain or neck pain Integumentary Denies rash or wounds Neurologic Neurologic: Denies headache(s), paresthesias or weakness EXAM Physical Exam Const Vital Signs: 05/04/21 10:36 Temperature 97.1 F L Temperature Source Temporal Pulse Rate 80 Respiratory Rate 17 Blood Pressure 146/100 H Blood Pressure Mean 115 Pulse Ox 99 Oxygen Delivery Method Room Air Positive well nourished and well developed General Appearance ED: well developed and NAD HEENT Reports moist mucous membranes normocephalic and atraumatic Eyes PERRL, EOMs intact bilaterally and conjunctivae normal General Eye ED: Yes normal appearance of both eyes Neck no lymphadenopathy and supple General: Negative for tenderness Chest Wall Chest: Negative for tenderness Resp normal respiratory effort and normal air movement Effort and Inspection: symmetric chest movement; Negative for respiratory distress Cardio regular rate, regular rhythm and no murmurs Peripheral Pulses: pulses 2+ throughout GI normal to inspection, nondistended, normoactive bowel sounds and non-tender GI Narrative: Negative Asencio's or McBurney's tenderness. No guarding or rebound. Palpation: Negative for guarding or rebound tenderness present Back/Spine no CVA tenderness and no thoracic nor lumbar tenderness Extremity normal to inspection General Extremety ED: Negative for edema or tenderness General Extremity: Negative for edema Neuro oriented x3 and no sensory deficits noted Sensorium / Orientation: awake and alert Skin no rashes or lesions noted and no wounds MDM MDM MDM Narrative Medical decision making narrative: Patient vitals stable nontoxic nonsurgical abdomen. He is given IV fluids and Levsin. Laboratory studies normal except for slight transaminitis. Lipase 87. History of cholecystectomy. Reevaluation no vomiting or diarrhea. He does have a PCP. I will send for acute hepatitis panel for further evaluation with his diarrhea. Prescription for Zofran Levsin to use as needed. Signs and symptoms discussed return otherwise follow-up with his PCP. All questions were answered. Patient is being discharged under pandemic conditions under declared global, national and state disaster activation, with limited medical resources. Patient and community understands this. Results discussed in layman's terms to the patient satisfaction. All questions answered in layman's terms. Patient understands importance of follow-up care as directed. Patient has been instructed to return to the ED immediately if new symptoms, problems, or questions occur. We mutually agree with the plan of disposition. The patient understand that they may call or return with any questions or concerns at any time. Lab Data Attestation: I reviewed the patient's lab results. Labs: Laboratory Results - last 24 hr 05/04/21 05/04/21 10:45 10:45 WBC 8.0 RBC 5.37 Hgb 15.7 Hct 47.9 MCV 89.2 MCH 29.2 MCHC 32.8 RDW Std Deviation 38.5 RDW Coeff of Jerzy 11.9 Plt Count 244 MPV 9.8 Immature Gran % (Auto) 0.500 Neut % (Auto) 63.4 Lymph % (Auto) 21.2 Shackelford % (Auto) 9.1 Eos % (Auto) 5.3 H Baso % (Auto) 0.5 Absolute Neuts (auto) 5.1 Absolute Lymphs (auto) 1.69 Nucleated RBC % 0 Sodium 141 Potassium 3.9 Chloride 109 H Carbon Dioxide 26.0 Anion Gap 6 BUN 11 Creatinine 0.98 Estim Creat Clear Calc 115.50 Est GFR (MDRD) Af Amer 110 Est GFR (MDRD) Non-Af 91 BUN/Creatinine Ratio 11.2 Glucose 112 H Calcium 9.1 Total Bilirubin 0.50 AST 44 H ALT 93 H Alkaline Phosphatase 80 Total Protein 8.1 Albumin 4.2 Globulin 3.9 Albumin/Globulin Ratio 1.1 Lipase 87 Discharge Plan Triage Chief Complaint: Abd Pain ED Provider: Froilan Sheppard Dx/Rx/DC Orders Clinical Impression: Nausea vomiting and diarrhea, Transaminitis Instructions: ED Vomiting and Diarrhea ... Prescriptions: New hyoscyamine sulfate [Levsin/SL] 0.125 mg tablet, sublingual 0.125 mg sublingual Q6H Qty: 10 RF: 0 ondansetron 4 mg tablet,disintegrating 4 mg PO Q6H PRN (Reason: nausea and vomiting) Qty: 10 RF: 0 No Action cetirizine [Zyrtec] 10 mg Tablet 10 mg PO DAILY RF: 0 omeprazole 40 mg Capsule,Delayed Release(Dr/Ec) 40 mg PO DAILY RF: 0 Primary Care Provider: Simba Horton Referrals: Simba Horton, [Primary Care Provider] - 3-5 Days if not improving Activity Restrictions/Additional Instructions: Continue oral fluids. Slight elevation of liver enzymes. Hepatitis panel sent and pending. Take medications as prescribed. Return if any worsening symptoms. Disposition Disposition: Home, Self Care
[2021-05-04 11:07] LABS: Absolute Lymphocyte Count 1.69 X10^3/uL (0.83-4.51); Absolute Neutrophil Count 5.1 X10^3/uL (2.0-7.7); Basophil# 0.04 X10^3/uL; Basophil% 0.5 % (0-1); Eosinophil# 0.42 X10^3/uL; Eosinophils% 5.3 % (0-5); Hematocrit 47.9 % (40-54); Hemoglobin 15.7 g/dL (13.0-16.5); Lymphocyte # 1.69 X10^3/ul (0.83-4.51); Lymphocyte % 21.2 % (19-41); Mean Corp Hgb Conc 32.8 g/dL (32-36); Mean Corpuscular Hgb 29.2 pg (27.0-32.0); Mean Corpuscular Volume 89.2 fL (80-94); Mean Platelet Vol. 9.8 fl (6.2-12.0); Monocyte# 0.73 X10^3/uL; Monocyte% 9.1 % (0-10); NRBC Flagged by Analyzer 0 % (0-5); Neutrophil # 5.07 X10^3/uL (2.7-7.7); Neutrophil % 63.4 % (47-70); Platelet Count 244 K/mm3 (150-450); RBC Distribution Width CV 11.9 % (11.6-14.6); RBC Distribution Width SD 38.5 fl (35.1-43.9); Red Blood Count 5.37 M/mm3 (4.6-6.2)
[2021-05-04] MEDS: 0.9% Normal Saline 1,000 ML 1000 ML IV (11:07)
[2021-05-04 11:22] LABS: ALB/GLOB Ratio 1.1 RATIO (0.9-2.4); AST(SGOT) 44 U/L (15-37); Alanine Aminotransfer ALT/SGPT 93 U/L (16-61); Albumin, Serum 4.2 g/dL (3.2-5.0); Alkaline Phosphatase 80 U/L (45-117); Anion Gap 6 (5-15); BUN 11 mg/dL (7-18); BUN/Creat Ratio 11.2 RATIO (10-20); Calcium,Total 9.1 mg/dL (8.5-10.1); Chloride 109 mmol/L (98-107); Creatinine, Serum 0.98 mg/dL (0.70-1.30); EST Glomerular Filtration Rate 91 mL/min (>60); Est Glom Filt Rate - Afr Amer 110 mL/min (>60); Globulin 3.9 g/dL (2.2-4.2); Glucose 112 mg/dL (74-106); Lipase 87 U/L (73-393); Potassium 3.9 mmol/L (3.5-5.1); Protein, Total 8.1 g/dL (6.4-8.2); Sodium Level 141 mmol/L (136-145)
[2021-05-04] MEDS: Hyoscyamine Sulfate 0.125 MG Tablet SL (11:41)
[2021-05-04 12:53] VITALS: BP 137/96; PULSE 91; RESP 16; O2SAT 99
[2021-05-06 05:07] LABS: HEPATITIS B SURFACE AG Negative (Negative); Hepatitis A IgM Antibody Negative (Negative); Hepatitis B Core AB IgM Negative (Negative)
[2021-05-06 08:16] LABS: Hep C Antibodies <0.1 s/co ratio (0.0-0.9)
== END 2021-05-04 12:56 | disposition home or self-care (01) ==
PROVIDERS: Emergency Provider Emergency Medicine; PCP Student in an Organized Health Care Education/Training Program
DX: R10.9 Unspecified abdominal pain (principal); R11.2 Nausea with vomiting, unspecified; R19.7 Diarrhea, unspecified; R74.01 Elevation of levels of liver transaminase levels; Z90.49 Acquired absence of other specified parts of digestive tract; J45.909 Unspecified asthma, uncomplicated; M10.9 Gout, unspecified
CPT/HCPCS: 80053; 80074; 83690; 85025; 96360; 99284; J7030; A4216

== ENCOUNTER 2022-11-07 18:15 | Emergency (ER) | payer BC, SELFPAY ==
[2022-11-07 18:15] VITALS: BP 174/94; PULSE 100; RESP 18; TEMP 36.8; O2SAT 100; BMI 33.7
--- NOTE | 2022-11-07 19:18 | EDS_ITS ---
HPI <NEO Diehl - Last Filed: 11/07/22 20:34> History of Present Illness Chief Complaint: Lower Extremity Injury Narrative Narrative: Patient presenting today with pain in his right lower extremity that started around 12 PM this afternoon and has been constant. The pain radiates from the knee down to the ankle and he is unable to tell me if it is more so on the ventral or dorsal aspect of his leg. He denies any injury to his leg, previous history of blood clots, use of blood thinners, tobacco use, recent surgeries or procedures, recent travel, chest pain, shortness of breath. He states that his mom has a history of blood clots. [facility] <NEO Diehl - Last Filed: 11/07/22 20:34> [facility] Medical History Asthma Gout Home Medications omeprazole 40 mg capsule,delayed release 40 mg PO DAILY 04/13/21 [History Last Taken Unknown] Allergy/AdvReac Type Severity Reaction Status Date / Time bee venom protein (honey bee) Allergy Anaphylaxis Verified 11/07/22 18:17 SURGICAL GLUE Allergy Rash Uncoded 05/04/21 10:39 Surgical History History of esophagogastroduodenoscopy (EGD) Social History Smoking Status: Never smoker alcohol intake: never ROS <NEO Diehl - Last Filed: 11/07/22 20:34> ROS ED Constitutional Constitutional ED: Denies chills, fever(s) or sweats Eyes Eyes: Denies blurry vision or diplopia Cardiovascular Cardiovascular: Denies chest pain or palpitations Respiratory/Chest Respiratory/Chest: Denies cough, dyspnea, tachypnea or wheezing Gastrointestinal Gastrointestinal: Denies abdominal pain, nausea or vomiting Musculoskeletal Musculoskeletal: Reports arthralgias and myalgias; Denies back pain or neck pain Integumentary Denies abscess, Abrasions or rash Neurologic Neurologic: Denies confusion, dizziness or paresthesias Psychiatric Psychiatric: Denies anxiety, depression, suicidal ideation or suicidal thoughts EXAM <NEO Diehl - Last Filed: 11/07/22 20:34> Physical Exam Const Vital Signs: 11/07/22 18:15 Temperature 98.2 F Temperature Source Temporal Pulse Rate 100 Respiratory Rate 18 Blood Pressure 174/94 H Blood Pressure Mean 120 Pulse Ox 100 Oxygen Delivery Method Room Air Positive well nourished, well developed and no apparent distress General Appearance ED: well developed HEENT Reports normocephalic and head/scalp atraumatic Mouth ED: Yes moist mucous membranes normal Eyes PERRL and EOMs intact bilaterally Neck full ROM and supple Chest Wall inspection of chest normal Resp normal respiratory effort and clear to auscultation bilaterally Cardio regular rate and regular rhythm GI soft to palpation, non-tender, non-distended and no masses Back/Spine normal ROM and normal to inspection Extremity normal to inspection and full ROM Extremity Narrative: Patient reports some tenderness to palpation to his right calf. No tenderness to palpation along the ventral aspect of patient's right lower leg. DP pulses 2+ and equal bilaterally. Good capillary refill, neurovascularly intact, full range of motion in the knee, ankle, and toes. No erythema or edema in the right leg. Neuro oriented x3, CN's II-XII intact bilaterally, moves all extremities, no focal motor deficits and no sensory deficits noted Sensorium / Orientation: awake and alert Psych mental status grossly normal and thought process normal Skin no rashes or lesions noted and no wounds <Dr. Fabrice Mcgill MD - Last Filed: 11/07/22 20:28> Physical Exam Const Vital Signs: 11/07/22 18:15 Temperature 98.2 F Temperature Source Temporal Pulse Rate 100 Respiratory Rate 18 Blood Pressure 174/94 H Blood Pressure Mean 120 Pulse Ox 100 Oxygen Delivery Method Room Air [facility] <NEO Diehl - Last Filed: 11/07/22 20:34> [facility] Narrative Medical decision making narrative: Patient presenting with pain in his right lower extremity that extends from his knee down to his ankle. This started randomly around 12 PM this afternoon. He denies any injury to the right lower extremity. Patient is a family history of blood clots but no personal history. We will obtain a D-dimer to rule out DVT. The D-dimer is WNL. I do not feel that any imaging of patient's right lower extremity is necessary as patient had no injury to his leg and does not have any bony tenderness. Patient was given Toradol for pain. He will be discharged home in stable condition and is to follow-up with his PCP. He has been given return instructions. He is comfortable with plan. Lab Data Labs: Laboratory Results - last 24 hr 11/07/22 19:30 D-Dimer Quant (PE/DVT) < 0.27 L <Dr. Fabrice Mcgill MD - Last Filed: 11/07/22 20:28> [facility] Lab Data Attestation: I reviewed the patient's lab results. Labs: Laboratory Results - last 24 hr 11/07/22 19:30 D-Dimer Quant (PE/DVT) < 0.27 L Treatment and Re-Evaluation Narrative: Seen and evaluated independently and in conjunction with physician assistant producer. Agree with notes above unless documented otherwise. Patient with spontaneous onset of pain in his right calf, hurts more to move, no swelling. Worried about a blood clot. Never had 1 before, no risk factors. On exam: Positive Nimesh, no swelling, no palpable cord, no varicosities. Normal skin, all compartments soft. D-dimer negative, ruling out acute DVT since ultrasound was not available. Patient reassured, given a dose of Toradol discharged home with appropriate discharge instructions. Advised follow-up for repeat blood pressure check as an outpatient. Discharge Plan Triage Chief Complaint: Lower Extremity Injury ED Midlevel Provider: Reanna Cheung ED Provider: Fabrice Mcgill Dx/Rx/DC Orders Clinical Impression: Strain of right calf muscle, Episode of hypertension Instructions: Treating?Strains and Sprains Prescriptions: No Action omeprazole 40 mg Capsule,Delayed Release(Dr/Ec) 40 mg PO DAILY Primary Care Provider: Simba Horton Referrals: Simba Horton DO [Primary Care Provider] - As Needed Disposition Disposition: Home, Self Care
[2022-11-07 19:59] LABS: D-Dimer Quantitative (DVT/PE) < 0.27 FEU/ug/m (0.27-0.49)
[2022-11-07] MEDS: Ketorolac 30 MG/ML Syringe IV (20:35)
[2022-11-07 20:37] VITALS: BP 145/97
== END 2022-11-07 20:39 | disposition home or self-care (01) ==
PROVIDERS: Physician Assistant; Emergency Provider Emergency Medicine; PCP Student in an Organized Health Care Education/Training Program; Visit Provider Emergency Medicine
DX: S86.111A Strain of other muscle(s) and tendon(s) of posterior muscle group at lower leg level, right leg, initial encounter (principal); I10 Essential (primary) hypertension
CPT/HCPCS: 85379; 99283; A4216

== ENCOUNTER 2022-12-05 17:25 | Emergency (ER) | payer BC, SELFPAY ==
[2022-12-05 17:26] VITALS: BP 173/110; PULSE 97; RESP 18; TEMP 36.4; BMI 34.2
[2022-12-05 17:28] VITALS: BP 173/110; PULSE 97; RESP 18; TEMP 36.4
--- NOTE | 2022-12-05 18:10 | RAD_ITS ---
STUDY: X-RAY - LEFT ANKLE REASON FOR EXAM: Male, 37 years old. Pain. No known injury. TECHNIQUE: 3 view(s) of the ankle. COMPARISON: None. FINDINGS: Normal visualized distal tibia and fibula. Normal medial and lateral malleoli. Normal tibiotalar articulation and ankle mortise. Normal visualized talus and calcaneus. The visualized subtalar, talonavicular, calcaneocuboid and tarsal articulations are normal. The soft tissue structures are unremarkable. RAD/Ankle min 3 Views IMPRESSION: Normal x-ray examination of the left ankle. Electronically Signed: Jaden Larose DO at 18:56 EDT ,
--- NOTE | 2022-12-05 18:11 | ED.VIS.LOWEX ---
HPI <NEO Loaiza - Last Filed: 12/05/22 19:03> History of Present Illness Chief Complaint: Lower Extremity Injury Narrative Narrative: 37-year-old male presents with left ankle pain. It started this morning with no known injury. Feels like it is just below his left ankle and is throbbing. He elevated and iced with no improvement. He denies any known injury but states he is very active and exercises frequently. He has a history of gout in his right foot. No fever or chills. PFSH <NEO Loaiza - Last Filed: 12/05/22 19:03> PFSH Medical History Asthma Gout Home Medications omeprazole 40 mg capsule,delayed release 40 mg PO DAILY 04/13/21 [History Last Taken Unknown] Allergy/AdvReac Type Severity Reaction Status Date / Time bee venom protein (honey bee) Allergy Anaphylaxis Verified 11/07/22 18:17 SURGICAL GLUE Allergy Rash Uncoded 05/04/21 10:39 Surgical History History of esophagogastroduodenoscopy (EGD) Social History Smoking Status: Never smoker alcohol intake: never ROS <NEO Loaiza - Last Filed: 12/05/22 19:03> ROS ED ROS Narrative Constitutional: Negative for fever, chills, malaise. CVS: Negative for chest pain. Respiratory: Negative for shortness of breath. Neuro: Negative for motor/sensory dysfunction. Skin: Negative for rash, wound. Musc: Positive for left ankle pain. No trauma. EXAM <NEO Loaiza - Last Filed: 12/05/22 19:03> Physical Exam Narrative Exam Narrative: CONST: Patient sitting in no acute distress. EYES: Normal inspection. NECK: Normal inspection. RESP: No respiratory distress, CTAB. CVS: Regular rate and rhythm, no murmur, no gallop. SKIN: Color normal, no rash, warm, dry, intact. EXTREMITIES: Very minimal swelling left lateral ankle with slight tenderness under the medial malleolus/proximal foot. No erythema or warmth. Full range of motion of knee ankle and foot. Normal sensation, 2+ DP pulse. Achilles intact. NEURO: Oriented x4. PSYCH: Normal affect. Const Vital Signs: 12/05/22 17:26 12/05/22 17:28 Temperature 97.6 F L 97.6 F L Temperature Source Temporal Temporal Pulse Rate 97 97 Respiratory Rate 18 18 Blood Pressure 173/110 H 173/110 H Blood Pressure Mean 131 131 <Dr. Froilan Sheppard DO - Last Filed: 12/05/22 21:54> Physical Exam Const Vital Signs: 12/05/22 17:26 12/05/22 17:28 Temperature 97.6 F L 97.6 F L Temperature Source Temporal Temporal Pulse Rate 97 97 Respiratory Rate 18 18 Blood Pressure 173/110 H 173/110 H Blood Pressure Mean 131 131 MDM <NEO Loaiza - Last Filed: 12/05/22 19:03> [facility] Narrative Medical decision making narrative: History gathered from: Patient and family member at bedside Patient has atraumatic left ankle pain. He is tender over the ATFL area. No significant bony tenderness. Achilles intact. Normal neurovascular exam. X-ray of the ankle shows no fracture or dislocation. Patient has history of gout but presently there is no redness or warmth. We discussed using the Aircast and NSAIDs for possible ankle sprain. He was discharged in stable condition. Differential: Ankle sprain, fracture, gout Radiography Diagnostic Testing: Clinical Impression(s) from Imaging Studies Ankle X-Ray 12/05/22 18:10 IMPRESSION: Normal x-ray examination of the left ankle. Electronically Signed: Jaden Larose DO at 18:56 EDT Reading Location ID and State: [address] [place] [address] Tel [phone], Service support , ED attending interpretation of left ankle shows no fracture or dislocation <Dr. Froilan Sheppard DO - Last Filed: 12/05/22 21:54> [facility] Narrative Medical decision making narrative: History gathered from: Patient and family member at bedside Patient has atraumatic left ankle pain. He is tender over the fibular calcaneal ligament area. No significant bony tenderness. Achilles intact. Normal neurovascular exam. X-ray of the ankle shows no fracture or dislocation. Patient has history of gout but presently there is no redness or warmth. We discussed using the Aircast and NSAIDs for possible ankle sprain. He was discharged in stable condition. Differential: Ankle sprain, fracture, gout Attending note: Patient seen and evaluated with biochemistry technician. I perform my own [id number] evaluation. I agree with the plan of work-up. Reports nontraumatic left ankle pain and swelling today. Works out however no new activities no known injuries. History of gout in the right toe. Pain worse with ambulation. No fevers. Exam swelling lateral ankle tenderness at the calcaneofibular ligament region. There is no redness no warmth. No medial mall tenderness. No foot tenderness. Three-view x-rays surveillance observer myself and read by radiology shows no acute process. With tenderness over ligamentous region we will treat as a sprain. Aircast along with NSAIDs provided. Outpatient follow-up. All questions were answered. Radiography Diagnostic Testing: Clinical Impression(s) from Imaging Studies Ankle X-Ray 12/05/22 18:10 IMPRESSION: Normal x-ray examination of the left ankle. Electronically Signed: Jaden Larose DO at 18:56 EDT Reading Location ID and State: [address] [place] [address] Tel [phone], Service support , Discharge Plan Triage Chief Complaint: Lower Extremity Injury ED Midlevel Provider: Aneglica Hammond ED Provider: Froilan Sheppard Dx/Rx/DC Orders Clinical Impression: Acute left ankle pain Instructions: ED Ankle Sprain (Adult) Prescriptions: No Action omeprazole 40 mg Capsule,Delayed Release(Dr/Ec) 40 mg PO DAILY Stand Alone Forms: ED Work / School Excuse Primary Care Provider: Simba Horton Referrals: Simba Horton DO [Primary Care Provider] - Activity Restrictions/Additional Instructions: I would treat this as an ankle sprain with rest, ice, elevation, ibuprofen every 6 hours as needed. Use the Aircast until its feeling improved. Disposition Disposition: Home, Self Care Discharge Date/Time: 12/05/22 19:04
[2022-12-05] MEDS: Ibuprofen 400 MG Tablet 800 MG PO (18:23)
== END 2022-12-05 19:04 | disposition home or self-care (01) ==
PROVIDERS: Emergency Provider Emergency Medicine; PCP Student in an Organized Health Care Education/Training Program; Visit Provider Emergency Medicine
DX: M25.572 Pain in left ankle and joints of left foot (principal); M10.9 Gout, unspecified
CPT/HCPCS: 73610; 99284

== ENCOUNTER 2023-10-04 09:46 | Emergency (ER) | payer BC, SELFPAY ==
[2023-10-04 09:46] VITALS: BP 142/91; PULSE 72; RESP 18; TEMP 36.3; O2SAT 100; BMI 30.6
--- NOTE | 2023-10-04 09:57 | CT_ITS ---
STUDY: CT BRAIN WITHOUT CONTRAST REASON FOR EXAM: Male, 38 years old. Head injury RADIATION DOSAGE (If Supplied By Facility): CTDIvol = ( 44.99 ) mGy, DLP = ( 812.98 ) mGycm TECHNIQUE: Transaxial CT imaging of the brain was performed without administration of intravenous contrast material. Individualized dose optimization techniques were used for this CT. COMPARISON: Comparison is made with prior study dated June 24, 2014. FINDINGS: Normal soft tissue structures. Normal calvarium. Normal size ventricles and extra-axial spaces for the patient''s age. Normal white matter tracts of the cerebral hemispheres. Normal basal ganglia and thalami. Normal brainstem. Normal cerebellum. There is no intracranial hemorrhage. There are no findings of an acute ischemic infarction. Normal visualized paranasal sinuses. CT/Brain/Head without Contrast IMPRESSION: Normal unenhanced CT scan of the brain. Electronically Signed: Ronan Walker MD at 10:27 EST ,
--- NOTE | 2023-10-04 09:57 | EX.ED.GENINJ ---
HPI History of Present Illness Chief Complaint: Head Injury Detail of Chief Complaint: Head injury Informant: patient Narrative Narrative: Patient presents to the emergency department with complaint of a head injury that occurred 3 days ago. Patient states that he was working in the basement and bumped his head on a counter did not realizing he was close to and hit his head on the edge of the counter. Denies loss of consciousness. Patient complaining of lightheadedness intermittently and some confusion. He has had a significant frontal headache for the last 3 days and has not gone to work. He had no nausea or vomiting. Patient seen at urgent care today and was referred to the emergency department. He does complain of some photophobia at times and also having a hard time sleeping at night. Patient not anticoagulated. [facility] Medical History Asthma Gout Home Medications omeprazole 40 mg capsule,delayed release 40 mg PO DAILY 04/13/21 [History Last Taken Unknown] Allergy/AdvReac Type Severity Reaction Status Date / Time bee venom protein (honey bee) Allergy Anaphylaxis Verified 11/07/22 18:17 Cyanoacrylates Allergy Rash Verified 12/22/22 11:00 Surgical History History of esophagogastroduodenoscopy (EGD) Social History Smoking Status: Never smoker alcohol intake: never ROS ROS ED ROS Narrative Lightheadedness Review of Systems ROS Unobtainable: other Constitutional Constitutional ED: Reports lethargy; Denies chills, fever(s), sweats or weight loss Eyes Eyes: Denies blurry vision, change in vision or diplopia ENT ENT ED: Denies rhinorrhea or sore throat Cardiovascular Cardiovascular: Denies chest pain, orthopnea or racing heartbeat Respiratory/Chest Respiratory/Chest: Reports dyspnea on exertion; Denies cough, dyspnea, orthopnea or sputum Gastrointestinal Gastrointestinal: Denies abdominal pain, diarrhea, nausea or vomiting Genitourinary Genitourinary ED: Denies dysuria, hematuria or urinary frequency Musculoskeletal Musculoskeletal: Denies arthralgias, back pain, myalgias or neck pain Integumentary Denies abscess, Abrasions or rash Neurologic Neurologic: Reports headache(s); Denies weakness Psychiatric Psychiatric: Denies anxiety, depression or suicidal thoughts Endocrine Endocrinology: Denies polydipsia, polyphagia or polyuria Hematologic/Lymphatic Hematologic/Lymphatic: Denies easy bleeding, easy bruising or lymphadenopathy Allergic/Immunologic Allergic/Immunologic ED: Denies mouth swelling, tongue swelling or urticaria EXAM Physical Exam Const Vital Signs: 10/04/23 09:46 10/04/23 10:21 10/04/23 11:06 Temperature 97.4 F L Temperature Source Temporal Pulse Rate 72 62 Respiratory Rate 18 Respiratory Effort Normal Non-Labored Respiratory Depth Normal Respiratory Pattern Normal Blood Pressure 142/91 H Blood Pressure Mean 108 Pulse Ox 100 Oxygen Delivery Method Room Air Positive well nourished and well developed General Appearance ED: well developed and NAD HEENT Reports TM's clear and moist mucous membranes HEENT Narrative: No hemotympanum, no external evidence of trauma to his head. normocephalic and atraumatic; Negative for trauma or tenderness Tympanic Membrane ED: Yes TM's clear Eyes PERRL and EOMs intact bilaterally General Eye ED: Negative for pale conjunctiva or scleral icterus Neck no lymphadenopathy, supple and no JVD General: Negative for tenderness Chest Wall inspection of chest normal and palpation of chest normal Chest: Negative for tenderness Resp normal respiratory effort and clear to auscultation bilaterally Effort and Inspection: Negative for respiratory distress or pain with movement Auscultation: Negative for rhonchi, wheezes or diminished lung sounds Cardio regular rate, regular rhythm, S1 normal heart sound, S2 normal heart sound and no murmurs Peripheral Pulses: pulses 2+ throughout GI normal to inspection, nondistended, normoactive bowel sounds, soft to palpation, non-tender, non-distended and no masses Back/Spine no CVA tenderness and no thoracic nor lumbar tenderness Extremity normal to inspection General Extremety ED: Negative for edema General Extremity: Negative for edema Neuro oriented x3, CN's II-XII intact bilaterally, no sensory deficits noted and gait normal Neuro Narrative: Finger-nose and heel dimas testing within normal limits, negative Romberg, negative for drift, fundi benign. Sensorium / Orientation: awake, alert, oriented to person, oriented to place and oriented to time Motor Exam: strength 5/5 throughout and strength abnormal Psych mental status grossly normal Skin no rashes or lesions noted and no wounds MDM MDM MDM Narrative Medical decision making narrative: Patient presents to the emergency department with complaint of headache and ongoing lightheadedness and photophobia and difficulty sleeping. Sent to ER from urgent care. CT scan of the brain without contrast was obtained to rule out intracranial hemorrhage or other acute process and this was read as normal. Clinically he looks well and is neurologically intact. Will discharge to home. Recommended supportive care with IV fluids as well as Motrin and Tylenol for discomfort. Patient advised to follow-up with his primary care physician within next 3 to 5 days. Suspect concussion syndrome. Lab Data Attestation: I reviewed the patient's lab results. Radiography Diagnostic Testing: Clinical Impression(s) from Imaging Studies Brain CT 10/04/23 09:57 IMPRESSION: Normal unenhanced CT scan of the brain. Electronically Signed: Ronan Walker MD at 10:27 EST Reading Location ID and State: [facility] / [place] , Service support , Discharge Plan Triage Chief Complaint: Head Injury ED Provider: Demetrius Jensen Dx/Rx/DC Orders Clinical Impression: Concussion Instructions: ED Concussion Prescriptions: No Action omeprazole 40 mg Capsule,Delayed Release(Dr/Ec) 40 mg PO DAILY Primary Care Provider: Simba Horotn Referrals: Simba Horton DO [Primary Care Provider] - 3-5 Days Disposition Disposition: Home, Self Care Discharge Date/Time: 10/04/23 11:06
[2023-10-04 11:06] VITALS: PULSE 62
== END 2023-10-04 11:06 | disposition home or self-care (01) ==
LOC: ED 10:58
PROVIDERS: Emergency Provider Emergency Medicine; PCP Student in an Organized Health Care Education/Training Program; Visit Provider Emergency Medicine
DX: S06.0X0A Concussion without loss of consciousness, initial encounter (principal); W22.09XA Striking against other stationary object, initial encounter; Y93.89 Activity, other specified; Y92.89 Other specified places as the place of occurrence of the external cause
CPT/HCPCS: 70450; 99282

== ENCOUNTER → 2023-11-07 | Outpatient (CLI) | payer OTHER, SELFPAY ==
--- NOTE | 2023-11-07 10:23 | MRI_ITS ---
STUDY: MRI RIGHT KNEE REASON FOR EXAM: Male, 38 years old. Sprain. TECHNIQUE: Standardized fat and water weighted pulse sequences were obtained in all 3 orthogonal planes. COMPARISON: None. FINDINGS: There is a horizontal tear of the posterior horn of the medial meniscus (sagittal PD series 4 images 32-35), with an adjacent septated parameniscal cyst around the medial joint line (axial T2 series 2 images 21-22). There is mild degenerative arthrosis of the medial femorotibial compartment with small marginal osteophyte formation and low-grade chondromalacia. There is a grade I MCL sprain with periligamentous edema (coronal T2 series 6 images 12-13). Normal distal semimembranosus, gracilis and semitendinosus tendons. Normal lateral meniscus. Normal hyaline cartilage of the lateral femorotibial compartment. Normal lateral femoral condyle and tibial plateau. Normal proximal tibiofibular articulation. Normal lateral collateral ( fibular ) ligament. Normal popliteus tendon. Normal biceps femoris tendon. Normal anterior cruciate ligament (ACL). Normal posterior cruciate ligament (PCL). There is low-grade chondromalacia patellofemoral chondromalacia. Congruent patellofemoral articulation. Normal medial and lateral patellar retinaculum. Normal quadriceps tendon. Normal patellar tendon. Normal Hoffa''s fat pad. There is a small joint effusion. There is a small popliteal cyst. The soft tissues are unremarkable. The otherwise visualized osseous structures are unremarkable. MRI/Lower Ext Joint Only (Routine) IMPRESSION: Horizontal tear of the posterior horn of the medial meniscus, with an adjacent septated parameniscal cyst around the medial joint line. Mild degenerative arthrosis of the medial femorotibial compartment. Low-grade patellofemoral chondromalacia. Grade I MCL sprain. Small joint effusion with a small popliteal cyst. Electronically Signed: Ricky Olsen MD at 11:54 EDT Reading Location ID and State: [facility] / [place] , Service support ,
== END | disposition home or self-care (01) ==
PROVIDERS: PCP Student in an Organized Health Care Education/Training Program; Referring Provider Family Medicine; Visit Provider Family Medicine
DX: S83.91XA Sprain of unspecified site of right knee, initial encounter (principal); X58.XXXA Exposure to other specified factors, initial encounter
CPT/HCPCS: 73721

== ENCOUNTER 2024-01-29 19:29 | Emergency (ER) | payer OTHER, SELFPAY ==
[2024-01-29 19:30] VITALS: BP 142/101; PULSE 61; RESP 16; TEMP 36.6; O2SAT 98; BMI 31.4
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
--- NOTE | 2024-01-29 19:49 | EX.ED.DYSGE1 ---
HPI <VINNY Crystal - Last Filed: 01/29/24 21:03> History of Present Illness Chief Complaint: Lower Extremity Injury Narrative Narrative: Patient is a 38-year-old male with no significant medical history who presents to the emergency department for worsening pain to the right knee. Patient had a meniscus repair in [facility] 8 weeks ago. Patient states that 2 weeks ago he was doing well, he sat in a chair and felt that he jammed his knee. He states it is getting more swollen, he started a Medrol Dosepak and finished it today. He is still having significant pain. The orthopod is aware of this problem. However patient is here today because the pain is getting worse. He denies any fever or chills. PFSH <VINNY Crystal - Last Filed: 01/29/24 21:03> PFS Medical History Asthma Gout Home Medications ?Medication ?Instructions ?Recorded ?Last Taken ?Type omeprazole 40 mg capsule,delayed 40 mg PO DAILY 04/13/21 Unknown History release Allergy/AdvReac Type Severity Reaction Status Date / Time bee venom protein (honey bee) Allergy Anaphylaxis Verified 01/29/24 19:31 Cyanoacrylates Allergy Rash Verified 01/29/24 19:31 Surgical History History of esophagogastroduodenoscopy (EGD) Social History Smoking Status: Never smoker alcohol intake: never ROS <VINNY Crystal - Last Filed: 01/29/24 21:03> ROS ED ROS Narrative Constitutional: Negative for fever, chills, weight loss, weakness Eyes: Negative for vision loss, vision change, double vision ENT: Negative for any sore throat, ear pain, congestion Cardiovascular: Negative for any chest pain, tightness, palpitations Respiratory: Negative for any cough, sputum production, hemoptysis, dyspnea, dyspnea on exertion, orthopnea Gastrointestinal: Negative for any abdominal pain, nausea, vomiting, diarrhea, constipation, blood in stool, blood in vomit : Negative for any urinary frequency, dysuria, retention, blood in urine Muscle skeletal: Negative for any neck pain, back pain. Positive right knee pain and swelling Neurological: Negative for any headache, syncope, dizziness Skin: Negative for any rashes, itching, abrasions, lacerations Psychiatric: Negative for any depression, anxiety, stress, suicidal ideation, homicidal ideation Hematologic: Negative for any excessive bruising, easy bleeding EXAM <VINNY Crystal - Last Filed: 01/29/24 21:03> Physical Exam Narrative Exam Narrative: Vital signs reviewed. HEET: Head normocephalic atraumatic, TMs clear bilaterally. Posterior pharynx is clear, moist mucous membranes. Nares clear bilaterally. Neck: Supple with no lymphadenopathy or tenderness. No signs of meningismus. Cardiac: Regular rate and rhythm no murmurs gallops or rubs, equal peripheral pulses bilaterally. Respiratory: Lungs clear to auscultation bilaterally. No chest tenderness. Abdomen: Soft, nontender, nondistended. No abdominal bruit or pulsatile masses. No hepatosplenomegaly Extremities: Patient has some edema to the right knee, patient has intact extensor mechanism. Cipro flex extend, he does have increased pain stating it feels tight. There is no redness to the area, there is no warmth. No signs or symptoms of infection. No evidence of any septic joint. No neurological focal deficits. No signs of gross trauma or deformity. Active full range of motion of all extremities. Neuro: Cranial nerves II through XII intact, no focal neurological deficits. Skin: Clean dry and intact with no rash, purpura, petechiae, vesicles or pustules. Backs/flank: No CVA tenderness, no midline spinal tenderness, no deformity. Psych: Normal mood and affect. No SI, HI or acute psychosis. Const Vital Signs: 01/29/24 19:30 Temperature 97.8 F Temperature Source Temporal Pulse Rate 61 Respiratory Rate 16 Blood Pressure 142/101 H Blood Pressure Mean 114 Pulse Ox 98 Oxygen Delivery Method Room Air Positive well nourished and well developed General Appearance ED: well developed <Shiv Garcia MD - Last Filed: 01/29/24 21:20> Physical Exam Const Vital Signs: 01/29/24 19:30 Temperature 97.8 F Temperature Source Temporal Pulse Rate 61 Respiratory Rate 16 Blood Pressure 142/101 H Blood Pressure Mean 114 Pulse Ox 98 Oxygen Delivery Method Room Air MDM <VINNY Crystal - Last Filed: 01/29/24 21:03> [facility] Radiography Diagnostic Testing: Clinical Impression(s) from Imaging Studies Knee X-Ray 01/29/24 20:10 IMPRESSION: Small suprapatellar effusion. Electronically Signed: Chai Keller MD at 20:32 EDT Reading Location ID and State: [facility] [place] / [place] , Service support , Treatment and Re-Evaluation :: Differential diagnosis includes however is not limited to: Septic arthritis, septic joint, joint effusion, internal derangement, postop swelling Patient appears to be in no obvious distress vital signs are stable, patient appears nontoxic. Presenting to the emergency department with complaints of pain to the right knee. There is some edema, I have low suspicion for any DVT, no evidence of any septic joint. Patient will receive x-rays of the right knee, patient be given pain medicine here. All radiologic examinations were read, reviewed by the emergency department attending. From these reads, a plan of care will be put in place. Patient was given 1 oxycodone here, patient's x-ray of the right knee shows a small suprapatellar effusion. Patient will have an Marvin wrap to the right knee. Patient will follow-up outpatient. He is happy with the plan of care, all questions were answered, stable for discharge. He will follow-up with his orthopod. l <Shiv Garcia MD - Last Filed: 01/29/24 21:20> [facility] Narrative Medical decision making narrative: Dr. Garcia: I have personally performed a face to face assessment of the patient and have reviewed the EMILY Note. I performed a substantive portion of the visit including all aspects of the following. My goel findings include: History is right knee pain, history of surgery through [employer] meniscal repair. 8 weeks out from surgery. A week and a half ago, patient hyperflexed right knee. Now has pain diffusely. Exam is afebrile. Vital signs noted. No erythema right knee, flexion and extension mechanism intact. Medical Decision Making: Check x-ray. X-ray of right knee interpreted by myself independently and 4 views shows no evidence of acute fracture. I reviewed the radiology report which confirms my independent interpretation and comments on suprapatellar effusion which I think is nonspecific. Patient will be placed in an Marvin wrap. He already has a brace. He is following up with orthopedics tomorrow. Disposition is discharged home in stable condition. Other additions or changes: [None] Radiography X-Ray: Read by ED Physician Diagnostic Testing: Clinical Impression(s) from Imaging Studies Knee X-Ray 01/29/24 20:10 IMPRESSION: Small suprapatellar effusion. Electronically Signed: Chai Keller MD at 20:32 EDT Reading Location ID and State: [facility] / [place] , Service support , Discharge Plan Triage Chief Complaint: Lower Extremity Injury ED Midlevel Provider: Nacho Blue ED Provider: Shiv Garcia Dx/Rx/DC Orders Clinical Impression: Knee pain, Knee swelling Instructions: ED Knee Effusion Prescriptions: No Action omeprazole 40 mg Capsule,Delayed Release(Dr/Ec) 40 mg PO DAILY Primary Care Provider: Simba Horton Referrals: Simba Horton DO [Primary Care Provider] - Activity Restrictions/Additional Instructions: Follow-up with your orthopod in [place]. Print Language: Turkish Disposition Disposition: Home, Self Care Discharge Date/Time: 01/29/24 21:14
[2024-01-29] MEDS: oxyCODONE 5 MG Tablet PO (20:00)
--- NOTE | 2024-01-29 20:10 | RAD_ITS ---
EXAM: XR RIGHT KNEE COMPLETE, 4 OR MORE VIEWS CLINICAL INDICATION: knee pain TECHNIQUE: Four or more views of the right knee. COMPARISON: No relevant prior studies available. FINDINGS: BONES/JOINTS: Small suprapatellar effusion. No acute fracture. No subluxation. Normal alignment. Preservation of the joint space. No sclerotic or destructive changes observed. SOFT TISSUES: Unremarkable. No soft tissue swelling or gas. No radiopaque foreign body. RAD/Knee 4 or More Views IMPRESSION: Small suprapatellar effusion. Electronically Signed: Chai Keller MD at 20:32 EDT ,
== END 2024-01-29 21:14 | disposition home or self-care (01) ==
PROVIDERS: Emergency Provider Emergency Medicine; PCP Student in an Organized Health Care Education/Training Program; Visit Provider Emergency Medicine
DX: M25.461 Effusion, right knee (principal); J45.909 Unspecified asthma, uncomplicated
CPT/HCPCS: 73564; 99282

== ENCOUNTER 2024-03-03 22:44 | Emergency (ER) | payer OTHER, BC, SELFPAY ==
[2024-03-03 22:44] VITALS: BP 128/83; PULSE 91; RESP 16; TEMP 36.3; O2SAT 98; BMI 31.4
--- NOTE | 2024-03-03 22:50 | EX.ED.DYSGE1 ---
HPI History of Present Illness Chief Complaint: Lower Extremity Injury [facility] Medical History Asthma Gout Home Medications ?Medication ?Instructions ?Recorded ?Last Taken ?Type omeprazole 40 mg capsule,delayed 40 mg PO DAILY 04/13/21 Unknown History release oxycodone-acetaminophen 5 mg-325 1 tab PO Q6H PRN pain 3 days #12 03/03/24 Unknown Rx mg tablet (Percocet) tabs Allergy/AdvReac Type Severity Reaction Status Date / Time bee venom protein (honey bee) Allergy Anaphylaxis Verified 03/03/24 22:47 Cyanoacrylates Allergy Rash Verified 03/03/24 22:47 Surgical History History of esophagogastroduodenoscopy (EGD) Social History Smoking Status: Never smoker alcohol intake: never EXAM Physical Exam Const Vital Signs: 03/03/24 22:44 Temperature 97.3 F L Temperature Source Temporal Pulse Rate 91 Respiratory Rate 16 Blood Pressure 128/83 H Blood Pressure Mean 98 Pulse Ox 98 Oxygen Delivery Method Room Air MDM MDM MDM Narrative Medical decision making narrative: HISTORY OF PRESENT ILLNESS: 39-year-old male presents with right knee pain. Notes surgery on 12/20. Notes since his surgery has had increasing pain. He notes pain is worse for last 2 to 3 days. Denies any inciting event. No falls, no trauma. Denies any fever. No history of diabetes. Notes he has intact range of motion but is painful. Notes he is having more difficulty walking. Notes he followed up with his surgeon who did not have any specific recommendations were placed on diclofenac. Patient denies active cancer, being bedridden for greater than 3 days, denies unilateral leg swelling, denies any varicose veins, denies any calf tenderness, denies tenderness along deep venous system. Denies major surgery within 12 weeks, recent paralysis, previous DVT. REVIEW OF SYSTEMS: Pertinent positives: Knee pain Pertinent negatives: Fever, vomiting, PHYSICAL EXAM: Nursing triage notes reviewed, Vital signs reviewed Constitutional: please see mdm Extremities: No edema, right knee with palpable effusion, intact range of motion, pain is not out of proportion to exam, there is no warmth, no erythema, low suspicion for septic joint, intact quadriceps tendon complex, compartments are soft, intact pulses in right lower extremity. Neuro: Intact sensation L1-S1 dermatomal distributions. Intact 5/5 strength in hip flexion (T12-L3). Knee extension (L2-L4). Ankle dorsiflexion (L4-L5). Ankle plantar flexion (S1). Great toe extension (L5). 2+ patellar and Achilles DTRs. Patient is able to ambulate here. He had antalgic gait however able to ambulate effectively. Skin: No rash or lesions noted, no erythema MEDICAL DECISION MAKING: Chief Complaint: Knee pain External records reviewed: Reviewed prior imaging: X-ray of the right knee from January 2024 shows small suprapatellar effusion, no obvious fracture dislocation. MRI from October 2023 shows horizontal tear in the posterior horn of the medial meniscus, grade 1 ACL sprain. PDMP reviewed. Multiple narcotic prescriptions from multiple different providers Factors affecting care: History of knee surgery Social determinants of health: none History obtained from others: none Consults: none MDM Narrative: The patient was hemodynamically stable, afebrile and nontoxic-appearing. Initial exam with palpable effusion but no signs of infection. I considered the following differential diagnosis: Fracture, dislocation, sprain, soft tissue injury, septic arthritis, DVT, compartment syndrome Patient's initial clinical exam was not consistent with septic arthritis, DVT or compartment syndrome. I obtained an x-ray of the involved extremity to rule out fracture or dislocation. ALL IMAGES (IF OBTAINED) HAVE BEEN PERSONALLY REVIEWED AND INTERPRETED BY MYSELF. Patient's x-ray of his right knee was read and reviewed by myself and showed no evidence of obvious fracture or dislocation. Radiologist agrees my interpretation. The synthesis of the patient's history, physical exam, images suggest no acute life or limb threatening etiology. Likely suffering from postop pain, postop inflammation. Will give short course of narcotics instructed patient continue take anti-inflammatories and follow-up with his orthopedic surgeon for further evaluation including MRI and possible surgical intervention. The patient and/or family, caregivers express understanding. The patient and/or family, caregivers agrees with the plan. Shared decision making: I will have a discussion with the patient and or visitors regarding risk/benefits of further testing or admission. They will be made aware of of the risk/benefits inherent in this decision they will be given the opportunity to voice understanding. Total critical care time today provided was at least 0 minutes. This excludes separately billable procedures. Critical care time (if documented) is secondary to the patient having high probability of clinically significant/life threatening deterioration in the patient's condition which required my urgent intervention. Impression: 1. Acute on chronic knee pain 2. History of right meniscal tear Dispo: Discharge home This note was generated with [employer] dictation software. It may contain incorrect words, spelling, and punctuation that were not noted in review of the chart prior to signing. Discharge Plan Triage Chief Complaint: Lower Extremity Injury ED Provider: Reddy Johnson Dx/Rx/DC Orders Clinical Impression: Acute knee pain, Postoperative pain Instructions: ED Knee Effusion Prescriptions: New oxycodone-acetaminophen [Percocet] 5-325 mg tablet 1 tab PO Q6H PRN (Reason: pain) 3 Days Qty: 12 0RF No Action omeprazole 40 mg Capsule,Delayed Release(Dr/Ec) 40 mg PO DAILY Primary Care Provider: Simba Horton Referrals: Simba Horton DO [Primary Care Provider] - Activity Restrictions/Additional Instructions: Thank you for trusting us with your care today! Please take Tylenol (2 pills, 650 mg), ibuprofen (2 pills, 400 mg) every 6 hours as needed for pain and fever control. Please ice regularly. Please return to the emergency department if your symptoms change or worsen. Please follow with your primary care physician for further outpatient evaluation and management. Print Language: Thai Disposition Disposition: Home, Self Care
[2024-03-03] MEDS: oxyCODONE 5 MG Tablet PO (23:11)
[2024-03-03] MEDS: Ibuprofen 200 MG Tablet 400 MG PO (23:11)
--- NOTE | 2024-03-03 23:15 | RAD_ITS ---
EXAM: XR RIGHT KNEE, 3 VIEWS CLINICAL INDICATION: pain TECHNIQUE: Three views of the right knee. COMPARISON: No relevant prior studies available. FINDINGS: BONES/JOINTS: Suprapatellar joint effusion slightly increased compared with the prior examination. Enthesophyte involving the superior aspect of the patella unchanged since previous exam. No acute fracture. No subluxation. Normal alignment. No sclerotic or destructive changes observed. SOFT TISSUES: Unremarkable. No soft tissue swelling or gas. No radiopaque foreign body. RAD/Knee 3 Views IMPRESSION: 1. Suprapatellar joint effusion slightly increased compared with the prior examination. 2. Enthesophyte involving the superior aspect of the patella unchanged since previous exam. Electronically Signed: Kj Dumont MD at 0:12 EDT ,
[2024-03-04 00:39] VITALS: BP 120/80; PULSE 86; RESP 18; TEMP 36.3; O2SAT 98
== END 2024-03-04 00:42 | disposition home or self-care (01) ==
PROVIDERS: Emergency Provider Emergency Medicine; PCP Student in an Organized Health Care Education/Training Program; Visit Provider Emergency Medicine
DX: G89.18 Other acute postprocedural pain (principal); R26.2 Difficulty in walking, not elsewhere classified; M25.461 Effusion, right knee; M25.561 Pain in right knee
CPT/HCPCS: 73562; 99283

== ENCOUNTER 2024-04-03 11:00 | Outpatient (RCR) | payer OTHER, BC, SELFPAY ==
--- NOTE | 2023-12-12 10:20 | HP.PTEVAL ---
Patient's Visit Information Visit Information Visit Information: EL GROSS is a 38 year old M referred to Physical Therapy by MARICARMEN SEXTON with a diagnosis of R knee sprain s/p 12/05/23 Meniscal repair. Date of Evaluation: 12/12/23 Physical Therapist: Kris Jade, DPT, OCS, CSCS Visit Plan Frequency: 2-3x /Week Duration: 3 Months Plan: 2-3x/week for 5-6 weeks to start and 8-12 overall for 1. treat per prpotocokl scanned in as well as in folder. Pt is NWB until 01/15 steven in brace, AROM 0-30 until 12/18, then 0-60 unlock brace until 01/01 then 0-90 01/15. PROM may go to 90 and then 120at 12/18 and 135 at 01/03. Work on ROM as allowed, patellar mobs and NWB strength per protocol , weight shifts per protocol when allowed, bike when 110 flexion reached. Please note that WB and ROM are different restrictions at home vs in therapy per protocol. HS stretch R. Ice as needed. FES as needed to quad. Subjective Subjective: Injured R knee at work bracing self on R leg 10/24/23. Repaired R meniscus 12/05/23. NWB 6 weeks(5 more). Brace on for that time and longer 0-30 for two weeks then 60 2 weeks then 90 x 2 weeks. Pain worse last couple days. Pain meds was norco which did not help, now percoset and tramadol. They help more. pain over weekend to 04/07 at [employer] and was using WC. Sitting long time not comfortable, enjoys lying with foot up. Sleeps is not great as he wakes every 2-3 hrs. Ices it alot adn elevates it. HEP: 5 weeks presurgery therapy. SLR 3 directions, pillow squeeze, HR all prior, none since surgery. Basic ADLs, dressing , bathroom, all I, bathtub assistance from into tub. Has shower chair. Has raised toilet seat. Employed: [employer] and [employer] 8 hr x 5 days. Off until February 12. Hobbies: lifting, bowling, not lately. has steps but is comfortable going down. Pain R knee: Pain Intensity (Out of 10): 2 Pain Intensity Range: 2 and 8 Comment: discomfort at rest Objective Objective: Walks in to PT with crutches mod I NWB R. Trasnfers bed and chair I, steps with crutches NWB R I up and down. Holds R leg stiff and out in front of him. dons and doffs brace I. It is blocked at 30 flexion and unlocked. L knee AROM 0-138, R knee 0-35 easily today. Patella moves well with some pain distal proximal on R. ankle tight on R leonid einto DF with gastroc to 0 vs 4 on L. SLR on R x10 without lag and good obvious quad contraction. HS mod tight on R and min on L. Quad not tested. reflexes 2/3 patella and achilles sensation LE WNL to gross light touch. UE AROM and strength is excellent. No pain in L foot today which had surgery last year. Balance/Special Test Scores Lower Extremity Functional Score: 9 Goals Goal 1:: Progress AROM as allowed by script to past 90 at 01/16/24 without pain Goal Time Frame: 4-6 Weeks Goal 2:: Pain 0-2/10 at all times and 80% better overall allowing sleep 7 hours without waking. 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 Goal Time Frame: 8-12 Weeks Goal 5:: walk and steps in community without antalgia or discomfort when allowed by doctor Goal Time Frame: 4-6 Weeks Goal 6:: climb in and out of shower tub I Goal Time Frame: 6-8 Weeks Rehabilitation Potential Physical Therapy Diagnosis: R knee weakness, stiffness and pain limiting funciton Rehabilitation Potential: Good Anticipated Interventions Patient/Client Instruction: Educate patient on: Condition, Plan of Care and Risk Factors For the Purpose of:: To decrease pain, To decrease swelling/inflammation, To increase ROM, To improve nutrient delivery to tissue, To improve muscle performance and motor function, To increase tolerance to activity/condition/position, To improve ability of physical actions for home/community/work/leisure and To improve gait and locomotor functions Therapeutic Exercise to Include: Strength training, Postural training, Flexibilty training, Gait and locomotor training, Passive ROM and Active ROM For the Purpose of:: To decrease pain, To increase ROM, To improve nutrient delivery to tissue, To improve muscle performance and motor function, To increase tolerance to activity/condition/position and To improve ability of physical actions for home/community/work/leisure Manual Therapy Techniques to Include: Scar massage, Passive ROM and Soft tissue mobilization For the Purpose of:: To decrease pain, To decrease swelling/inflammation, To increase ROM, To improve nutrient delivery to tissue, To improve muscle performance and motor function and To increase tolerance to activity/condition/position Cryotherapy (ice pack, ice massage): Yes For the Purpose of:: To decrease pain and To decrease swelling/inflammation Text: Thank you for the opportunity to evaluate your patient. For Medicare and Medicare HMO plans, please review the plan of care and approve it. It will need to be FAXED BACK to us at [phone] for Medicare purposes. For Medicare only, by signing this I certify the plan of care. Please let me know if there are questions or concerns regarding this plan of care. Physician Signature: Date:
--- NOTE | 2024-01-16 13:41 | HP.PTREVAL ---
Re-Evaluation Intro: MARICARMEN SEXTON, It has been my pleasure to treat EL GROSS over the last 10 visits for R knee sprain s/p 12/05/23 Meniscal repair. Please see the progress note below for an update on the physical therapy plan of care! Subjective Subjective: Saw doctor this am. Allowed to bear weight now. Took some little steps this am. Some shooting pain down leg minimally. Wean crutches in 2 weeks. Brace for another 2 weeks but longer if feels like he needs it. HEP going well and bike at gym Objective Objective/Function: 0-115 AROM R knee vs 135 L, 10 SLR without lag and good quad contraction. walked with brace FWB today 10 steps with good pattern. progressing well and will need help weaning crutches over 2 weeks and then brace as well as with strengthening for return to [facility]. entering phase 3 of rehab and going well and appropriate to continue POC. Plan Plan Plan: 2-3x/week for 6 weeks to progress per protocol, gradual WB in brace until 01/30 then can be out of brace. Progression of strength of LE and core and cotninued ROM knee now is WBAT in brace. Balance/Gait/Functional tests Balance/Special Test Scores Lower Extremity Functional Score: 9 Goals Goals Goal 1:: Progress AROM as allowed by script to past 90 at 01/16/24 without pain Goal Time Frame: 4-6 Weeks Goal Progress: Goal Met Goal 2:: Pain 0-2/10 at all times and 80% better overall allowing sleep 7 hours without waking. 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 workout at community gym Goal Time Frame: 8-12 Weeks Goal 5:: walk and steps in community without antalgia or discomfort when allowed by doctor Goal Time Frame: 4-6 Weeks Goal 6:: climb in and out of shower tub I Goal Time Frame: 6-8 Weeks Anticipated Interventions Anticipated Interventions Patient/Client Instruction: Educate patient on: Condition, Plan of Care and Risk Factors For the Purpose of:: To decrease pain, To decrease swelling/inflammation, To increase ROM, To improve nutrient delivery to tissue, To improve muscle performance and motor function, To increase tolerance to activity/condition/position, To improve ability of physical actions for home/community/work/leisure and To improve gait and locomotor functions Therapeutic Exercise to Include: Strength training, Postural training, Flexibilty training, Gait and locomotor training, Passive ROM and Active ROM For the Purpose of:: To decrease pain, To increase ROM, To improve nutrient delivery to tissue, To improve muscle performance and motor function, To increase tolerance to activity/condition/position and To improve ability of physical actions for home/community/work/leisure Manual Therapy Techniques to Include: Scar massage, Passive ROM and Soft tissue mobilization For the Purpose of:: To decrease pain, To decrease swelling/inflammation, To increase ROM, To improve nutrient delivery to tissue, To improve muscle performance and motor function and To increase tolerance to activity/condition/position Cryotherapy (ice pack, ice massage): Yes For the Purpose of:: To decrease pain and To decrease swelling/inflammation Re-Evaluation Ending Re-evaluation ending: Please do not hesitate to contact me at [phone] by phone or if you have questions or concerns regarding this new plan of care! Sincerely, Kris Jade, DPT, OCS, CSCS
--- NOTE | 2024-02-16 11:56 | HP.PTREVAL_ITS ---
Re-Evaluation Intro: MARICARMEN SEXTON, It has been my pleasure to treat EL GROSS over the last 18 visits for R knee sprain s/p 12/05/23 Meniscal repair. Please see the progress note below for an update on the physical therapy plan of care! Subjective Subjective: Pain still present R knee constantly. 5/10. Gets up to 8/10 at night. Not sleeping well. Doctor is not concerned with it. To Doctor February 26. Taking percoset now and then before bed. 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 knee gets sore but not worse than it was prior. Going to gym and doing regular workouts except legs and doing some of his current exercises to strengthen leg and they are going well. Pt frustrated with pain level despite funcitoning fairly well. Objective Objective/Function: 0-115 AROM R knee, 0-130 on L, tightness end range of knee flexion R but patient not overly aggressive with knee flexion OP. Walking without antalgia today and steps without pain. Pt to contact casewroker regarding new c9 and note sent to doctor today Overall pt higher than typical pain complaints constantly and ROM not yet where needs to be but improving strength and funciton., Is understanably hyperfoc ussed on pain and limiting him from attempting more aggressive activities. Plan Plan Plan: Approipriate to continue 2x/weeek for 4 weeks if c9 gets renewed. Focus on quad stretch adn knee flexion ROM with increased aggressiveness, pain control including TENS and ice if helpful and leg pull. Progression of strength per protocol to i gym program Balance/Gait/Functional tests Balance/Special Test Scores Lower Extremity Functional Score: 27 Goals Goals Goal 1:: Progress AROM as allowed by script to past 90 at 01/16/24 without pain Goal Time Frame: 4-6 Weeks Goal Progress: Goal Met Goal 2:: Pain 0-2/10 at all times and 80% better overall allowing sleep 7 hours without waking. Goal Time Frame: 4-6 Weeks Goal Progress: Not Progressing Goal 3:: Plan to return to work Goal Time Frame: 8-12 Weeks Goal Progress: Goal Met Goal 4:: return to full workout at community gym Goal Time Frame: 8-12 Weeks Goal Progress: Progressing Goal 5:: walk and steps in community without antalgia or discomfort when allowed by doctor Goal Time Frame: 4-6 Weeks Goal Progress: Goal Met inconsistently Goal 6:: climb in and out of shower tub I Goal Time Frame: 6-8 Weeks Goal Progress: Goal Met Anticipated Interventions Anticipated Interventions Patient/Client Instruction: Educate patient on: Condition, Plan of Care and Risk Factors For the Purpose of:: To decrease pain, To decrease swelling/inflammation, To increase ROM, To improve nutrient delivery to tissue, To improve muscle performance and motor function, To increase tolerance to activity/condition/position, To improve ability of physical actions for home/community/work/leisure and To improve gait and locomotor functions Therapeutic Exercise to Include: Strength training, Postural training, Flexibilty training, Gait and locomotor training, Passive ROM and Active ROM For the Purpose of:: To decrease pain, To increase ROM, To improve nutrient delivery to tissue, To improve muscle performance and motor function, To increase tolerance to activity/condition/position and To improve ability of physical actions for home/community/work/leisure Manual Therapy Techniques to Include: Scar massage, Passive ROM and Soft tissue mobilization For the Purpose of:: To decrease pain, To decrease swelling/inflammation, To increase ROM, To improve nutrient delivery to tissue, To improve muscle performance and motor function and To increase tolerance to activity/condition/position Cryotherapy (ice pack, ice massage): Yes For the Purpose of:: To decrease pain and To decrease swelling/inflammation Re-Evaluation Ending Re-evaluation ending: Please do not hesitate to contact me at [phone] by phone or if you have questions or concerns regarding this new plan of care! Sincerely, Kris Jade, DPT, OCS, CSCS
--- NOTE | 2024-03-16 12:26 | HP.PTEVAL ---
Patient's Visit Information Visit Information Visit Information: EL GROSS is a 39 year old M referred to Physical Therapy by MARICARMEN SEXTON with a diagnosis of R knee sprain s/p 12/05/23 Meniscal repair. Date of Evaluation: 12/12/23 Physical Therapist: Kris Jade, DPT, OCS, CSCS Visit Plan Frequency: 2-3x /Week Duration: 3 Months Plan: 3x/week fro 5-6 weeks til 04/28 for attempt more flexion ROM with rollout to quad, strengthening closed chain to tolerance of R LE. funcitonal progression steps and gait confidence. TENS with ice as needed and helpful for pain. Subjective Subjective: Injured R knee at work bracing self on R leg 10/24/23. Repaired R meniscus 12/05/23. NWB 6 weeks(5 more). Brace on for that time and longer 0-30 for two weeks then 60 2 weeks then 90 x 2 weeks. Pain worse last couple days. Pain meds was norco which did not help, now percoset and tramadol. They help more. pain over weekend to 04/07 at latter-day and was using WC. Sitting long time not comfortable, enjoys lying with foot up. Sleeps is not great as he wakes every 2-3 hrs. Ices it alot adn elevates it. HEP: 5 weeks presurgery therapy. SLR 3 directions, pillow squeeze, HR all prior, none since surgery. Basic ADLs, dressing , bathroom, all I, bathtub assistance from into tub. Has shower chair. Has raised toilet seat. Employed: [employer] 8 hr x 5 days. Off until February 12. Hobbies: lifting, bowling, not lately. has steps but is comfortable going down. Pain R knee: Pain Intensity (Out of 10): 8 Pain Intensity Range: 2 and 8 Comment: Is 15/10 on the scale? Objective Objective: Walks in to PT with crutches mod I NWB R. Trasnfers bed and chair I, steps with crutches NWB R I up and down. Holds R leg stiff and out in front of him. dons and doffs brace I. It is blocked at 30 flexion and unlocked. L knee AROM 0-138, R knee 0-35 easily today. Patella moves well with some pain distal proximal on R. ankle tight on R leonid einto DF with gastroc to 0 vs 4 on L. SLR on R x10 without lag and good obvious quad contraction. HS mod tight on R and min on L. Quad not tested. reflexes 2/3 patella and achilles sensation LE WNL to gross light touch. UE AROM and strength is excellent. No pain in L foot today which had surgery last year. Balance/Special Test Scores Lower Extremity Functional Score: 24 Goals Goal 1:: Progress AROM as allowed by script to past 90 at 01/16/24 without pain Goal Time Frame: 4-6 Weeks Goal 2:: Pain 0-2/10 at all times and 80% better overall allowing sleep 7 hours without waking. Goal Time Frame: 4-6 Weeks Goal 3:: return to work as tolerated without increased pain Goal Time Frame: 4-6 Weeks Goal 4:: return to full workout at community gym Goal Time Frame: 8-12 Weeks Goal 5:: walk and steps in community without antalgia or discomfort when allowed by doctor Goal Time Frame: 4-6 Weeks Goal 6:: climb in and out of shower tub I Goal Time Frame: 6-8 Weeks Rehabilitation Potential Physical Therapy Diagnosis: R knee weakness, stiffness and pain limiting funciton Rehabilitation Potential: Good Anticipated Interventions Patient/Client Instruction: Educate patient on: Condition, Plan of Care and Risk Factors For the Purpose of:: To decrease pain, To decrease swelling/inflammation, To increase ROM, To improve nutrient delivery to tissue, To improve muscle performance and motor function, To increase tolerance to activity/condition/position, To improve ability of physical actions for home/community/work/leisure and To improve gait and locomotor functions Therapeutic Exercise to Include: Strength training, Postural training, Flexibilty training, Gait and locomotor training, Passive ROM and Active ROM For the Purpose of:: To decrease pain, To increase ROM, To improve nutrient delivery to tissue, To improve muscle performance and motor function, To increase tolerance to activity/condition/position and To improve ability of physical actions for home/community/work/leisure Manual Therapy Techniques to Include: Scar massage, Passive ROM and Soft tissue mobilization For the Purpose of:: To decrease pain, To decrease swelling/inflammation, To increase ROM, To improve nutrient delivery to tissue, To improve muscle performance and motor function and To increase tolerance to activity/condition/position Cryotherapy (ice pack, ice massage): Yes For the Purpose of:: To decrease pain and To decrease swelling/inflammation Text: Thank you for the opportunity to evaluate your patient. For Medicare and Medicare HMO plans, please review the plan of care and approve it. It will need to be FAXED BACK to us at [phone] for Medicare purposes. For Medicare only, by signing this I certify the plan of care. Please let me know if there are questions or concerns regarding this plan of care. Physician Signature: Date:
--- NOTE | 2024-04-03 11:37 | HP.PTREVAL ---
Re-Evaluation Intro: MARICARMEN SEXTON, It has been my pleasure to treat EL GROSS over the last 24 visits for R knee sprain s/p 12/05/23 Meniscal repair. Please see the progress note below for an update on the physical therapy plan of care! Subjective Subjective: [facility] and showed another tear below current one and needs to cut it out. Was hard to tell if current one is healing. Has microfractures underneath it. He is now NWB R until 04/23. Has second opinion on . Not sure if he just needs meniscectomy or needs another repair. HEP: SLR, HS, HS stretch, SLR 2x15. clamshells, lying down band exercises with band for knee. Pain is 7/10 at rest and with NWB activity. Sleep is interrupted with pain. Has tylenol 3 but taking them only at night. Back to doctor May 02. Will try to put weight through it around 04/23. Wants to start protocol at 6 week point starting 04/23 PT. Objective Objective/Function: NWB R with crutches into PT today mod I. AROM R knee 0-135 vs 140 on L tightness mildly in HS and quad B but funcitonal and baseline. strength hips 4+/5 B abd, ext adn flexion including SLR without lag on R. knee R not tested due to microfractures snd NWB status. Overall , measurables including flex, ROM and hip strength are very good but pain 7/10 constant is a limiting and frustrating factor for patient . Plan Plan Plan: pt is to avoid WB and any aggravating aggressive activities. He is to continue NWB strengthening at home as well as ROM and stretching which he is I with and REST and heal. F/U for weekly checks as needed until can progress WB at end of month for recheck WB tolerance and activity/pain. Balance/Gait/Functional tests Balance/Special Test Scores Lower Extremity Functional Score: 24 Goals Goals Goal 1:: Progress AROM as allowed by script to past 90 at 01/16/24 without pain Goal Time Frame: 4-6 Weeks Goal Progress: Goal Met Goal 2:: Pain 0-2/10 at all times and 80% better overall allowing sleep 7 hours without waking. Goal Time Frame: 4-6 Weeks Goal Progress: Not Progressing, approp Goal 3:: return to work as tolerated without increased pain Goal Time Frame: 4-6 Weeks Goal Progress: NEW GOAL Goal 4:: return to full workout at community gym Goal Time Frame: 8-12 Weeks Goal Progress: Progressing, approp Goal 5:: walk and steps in community without antalgia or discomfort when allowed by doctor Goal Time Frame: 4-6 Weeks Goal Progress: Goal Met inconsistently Goal 6:: climb in and out of shower tub I Goal Time Frame: 6-8 Weeks Goal Progress: Goal Met Anticipated Interventions Anticipated Interventions Patient/Client Instruction: Educate patient on: Condition, Plan of Care and Risk Factors For the Purpose of:: To decrease pain, To decrease swelling/inflammation, To increase ROM, To improve nutrient delivery to tissue, To improve muscle performance and motor function, To increase tolerance to activity/condition/position, To improve ability of physical actions for home/community/work/leisure and To improve gait and locomotor functions Therapeutic Exercise to Include: Strength training, Postural training, Flexibilty training, Gait and locomotor training, Passive ROM and Active ROM For the Purpose of:: To decrease pain, To increase ROM, To improve nutrient delivery to tissue, To improve muscle performance and motor function, To increase tolerance to activity/condition/position and To improve ability of physical actions for home/community/work/leisure Manual Therapy Techniques to Include: Scar massage, Passive ROM and Soft tissue mobilization For the Purpose of:: To decrease pain, To decrease swelling/inflammation, To increase ROM, To improve nutrient delivery to tissue, To improve muscle performance and motor function and To increase tolerance to activity/condition/position Cryotherapy (ice pack, ice massage): Yes For the Purpose of:: To decrease pain and To decrease swelling/inflammation Re-Evaluation Ending Re-evaluation ending: Please do not hesitate to contact me at [phone] by phone or if you have questions or concerns regarding this new plan of care! Sincerely, Kris Jade, DPT, OCS, CSCS
--- NOTE | 2024-04-16 12:16 | HP.PTDCSUM_ITS ---
Discharge Summary D/C summary: It has been my pleasure to treat EL GROSS referred by MARICARMEN SEXTON, with the diagnosis of R knee sprain s/p 12/05/23 Meniscal repair for a total of 25 visit(s). Discharge Date: 04/16/24 Please see the following information for a summary of their discharge status. Subjective Subjective: Went to a new surgeon Dr. Lopez at [facility] and went over MRI, said first surgery failed and stitches floating in joint. Does not need to be NWB just has to be careful and use crutches. Will have another surgery. Also has new tear. Will clean it out and clean up meniscuus. Microfractures not healing. This doctor was confident and instille confidence. Surgery within a week. Pain level is 6/10 and did not get worse with more WB. Put on ibuprofen 800 mg. Aspirated knee. Got order for after surgery. Was in ER again after vacation and was more painful after falling walking to bathroom on vacation getting up out of bed. Pain R knee: Pain Intensity (Out of 10): 6 Overall Improvement % Improvement: 0 Objective Objective/Function: In brace adn walking PWB with crutches. Still going to gym for upper body. Will call back to schedule afger surgery. Goals Goal 1:: Progress AROM as allowed by script to past 90 at 01/16/24 without pain Goal Progress: Goal Met Goal 2:: Pain 0-2/10 at all times and 80% better overall allowing sleep 7 hours without waking. Goal Progress: Not Progressing, approp Goal 3:: return to work as tolerated without increased pain Goal Progress: Not Progressing Goal 4:: return to full workout at community gym Goal Progress: Progressing, approp Goal 5:: walk and steps in community without antalgia or discomfort when allowed by doctor Goal Progress: Not Progressing Goal 6:: climb in and out of shower tub I Goal Progress: Goal Met Plan Plan: Pt will have another surgery this week. Discontinue this cahrt and will present with new script after surgery. D/C Information Discharge Comments: Pt sought 2nd opinion and will have another surgery this week. d/c sentence: If there are questions or concerns regarding this patient's physical therapy, please feel free to call me at [phone]. Thank you for the referral of this patient. Sincerely, Kris Jade, DPT, OCS, CSCS Balance/Gait/Functional tests Balance/Special Test Scores Lower Extremity Functional Score: 24 Improvement % Improvement: 0
== END 2024-04-03 19:00 | disposition home or self-care (01) ==
LOC: PT 11:00
PROVIDERS: PCP Student in an Organized Health Care Education/Training Program
DX: S83.91XD Sprain of unspecified site of right knee, subsequent encounter (principal)
CPT/HCPCS: 97014; 97016; 97110; 97140; 97161; 97530; G0283

== ENCOUNTER 2024-04-08 20:40 | Emergency (ER) | payer OTHER, BC, SELFPAY ==
[2024-04-08 20:41] VITALS: BP 145/82; PULSE 100; RESP 18; TEMP 36.4; O2SAT 97
[2024-04-08 20:43] VITALS: BMI 31.7
--- NOTE | 2024-04-08 21:16 | ED.VIS.LOWEX ---
HPI History of Present Illness Chief Complaint: Lower Extremity Injury Informant: patient Narrative Narrative: Patient is a 39-year-old male with history of prior right meniscal knee injury. Had surgery in October with [facility]. About 6 or 7 weeks postop he felt a pop in his knee and had developed an effusion. He has been having worsening knee issues again since. He notes over the past week he has had decreased range of motion again. He fell off the couch onto his knee last night and has been having even worsening pain since. States he has Tylenol 3 at home and only has to left and he is not having any relief with this. Is following up with [facility] recently started seeing Dr. Lopez. States he had MRI 2 weeks ago and told he is to have another surgery. Denies any fever, numbness or tingling of the leg. No other complaints or concerns at this time. [facility] Medical History Gout Asthma Home Medications ?Medication ?Instructions ?Recorded ?Last Taken ?Type acetaminophen 300 mg-codeine 30 mg 1 tab PO Q8H PRN pain 04/08/24 Unknown History tablet diclofenac sodium 75 mg 75 mg PO BID 04/08/24 Unknown History tablet,delayed release oxycodone 5 mg tablet 5 mg PO Q8H PRN pain 3 days #10 04/08/24 Unknown Rx tabs Allergy/AdvReac Type Severity Reaction Status Date / Time bee venom protein (honey bee) Allergy Anaphylaxis Verified 04/08/24 20:41 Cyanoacrylates Allergy Rash Verified 04/08/24 20:41 Surgical History H/O medial meniscus repair of right knee History of esophagogastroduodenoscopy (EGD) Social History Smoking Status: Never smoker alcohol intake: never ROS ROS ED Constitutional Constitutional ED: Denies chills or fever(s) Respiratory/Chest Respiratory/Chest: Denies cough Gastrointestinal Gastrointestinal: Denies nausea or vomiting Musculoskeletal Musculoskeletal: Reports other Details: Right knee pain and swelling Integumentary Denies Abrasions or rash Neurologic Neurologic: Denies paresthesias or weakness Hematologic/Lymphatic Hematologic/Lymphatic: Denies easy bleeding or easy bruising EXAM Physical Exam Const Vital Signs: 04/08/24 20:41 Temperature 97.6 F L Temperature Source Temporal Pulse Rate 100 Respiratory Rate 18 Blood Pressure 145/82 H Blood Pressure Mean 103 Pulse Ox 97 Oxygen Delivery Method Room Air Positive well nourished and well developed General Appearance ED: well developed HEENT Reports moist mucous membranes Chest Wall inspection of chest normal and palpation of chest normal Resp normal respiratory effort Cardio regular rate and regular rhythm Cardio Narrative: 2+ DP pulses Extremity Extremity Narrative: Hinged knee immobilizer in place. No pinpoint bony tenderness. No warmth of the knee. No joint effusions present. Normal extensor mechanism of the leg. No distal edema appreciated. Neuro oriented x3 and moves all extremities Sensorium / Orientation: alert Motor Exam: strength 5/5 throughout; Negative for general weakness Psych mental status grossly normal Skin no wounds Rashes: no rashes MDM MDM MDM Narrative Medical decision making narrative: Patient evaluated for acute on chronic knee pain. Is having worsening swelling. Patient appears nontoxic no acute distress. Does have a decent effusion but he states has been there for couple months and orthopedics is already drained 60 mL off of it. I do not suspect a septic joint based on physical exam he is not short of range of motion pain no overlying skin changes. I do not think he requires arthrocentesis at this time emergently. Patient is given oxycodone for pain in the ER. He does have improvement. Repeat x-ray since he had a fall landed on his knee is obtained by do not appreciate any acute traumatic fracture. He does have an effusion and degenerative changes present. Patient will follow-up outpatient with his orthopedist. Given a couple days of pain medication for further symptom control. He already has crutches at home. He has good distal pulses. Discharged home in agreement this plan. Given return precautions. Discharge Plan Triage Chief Complaint: Lower Extremity Injury ED Provider: Summer Palmer Dx/Rx/DC Orders Clinical Impression: Pain in right knee, Effusion of right knee Instructions: ED Knee Pain of Uncertain Cause, ED Knee Effusion Prescriptions: New oxycodone 5 mg tablet 5 mg PO Q8H PRN (Reason: pain) 3 Days Qty: 10 0RF No Action diclofenac sodium 75 mg tablet,delayed release (DR/EC) 75 mg PO BID acetaminophen-codeine 300-30 mg tablet 1 tab PO Q8H PRN (Reason: pain) Primary Care Provider: Simba Horton Referrals: Simba Horton DO [Primary Care Provider] - Activity Restrictions/Additional Instructions: Please continue to follow-up with your orthopedist as we discussed. Your primary care doctor orthopedist will need to prescribe further pain medication for you as needed. May also alternate ibuprofen and Tylenol at home. Ice your knee. Print Language: Setswana Disposition Disposition: Home, Self Care
[2024-04-08] MEDS: oxyCODONE 5 MG Tablet PO (21:20)
--- NOTE | 2024-04-08 21:25 | RAD_ITS ---
INDICATION: pain EXAMINATION/TECHNIQUE: X-RAY - RIGHT XR Knee Complete 4 Views or More COMPARISON: None. FINDINGS: No acute fracture or malalignment. Mild, medial compartment predominant, tricompartmental joint space narrowing and osteophytosis. Small suprapatellar joint effusion. The soft tissues are unremarkable. RAD/Knee 4 or More Views IMPRESSION: Small suprapatellar joint effusion. Mild, medial compartment predominant, tricompartmental degenerative arthrosis of the knee. Electronically Signed: Rc Andersen MD at 23:13 EDT ,
== END 2024-04-08 22:37 | disposition home or self-care (01) ==
PROVIDERS: Emergency Provider Emergency Medicine; PCP Student in an Organized Health Care Education/Training Program; Visit Provider Emergency Medicine
DX: M25.561 Pain in right knee (principal); M25.461 Effusion, right knee; Z98.890 Other specified postprocedural states; J45.909 Unspecified asthma, uncomplicated; G89.29 Other chronic pain
CPT/HCPCS: 73564; 99282

== ENCOUNTER 2024-07-11 18:09 | Emergency (ER) | payer OTHER, BC, SELFPAY ==
[2024-07-11 18:09] VITALS: BP 143/100; PULSE 92; RESP 18; TEMP 36.1; O2SAT 100; BMI 33.3
--- NOTE | 2024-07-11 18:48 | EDS_ITS ---
HPI History of Present Illness Chief Complaint: Lower Extremity Injury Narrative Narrative: 39-year-old male past history of previous knee surgeries at the [facility] by Dr. Lopez, presents with right lateral knee pain/proximal fibular pain that has had for the past few weeks. He states his pain is worse with weightbearing and walking. His most recent surgery was in March where he had his meniscus cartilage shaved and had chondroplasty. He states that the soonest that his orthopedic surgeon could see him would be Tuesday of next week, 5 days from now. He states that he was sent to the emergency department to rule out a hairline fracture. He denies any fevers or chills. Sometimes he gets nauseated from the pain. No vomiting. No swelling of the knee joint or erythema. [facility] Medical History Gout Asthma Home Medications ?Medication ?Instructions ?Recorded ?Last Taken ?Type naproxen sodium 550 mg tablet 550 mg PO BID 07/11/24 Unknown History Allergy/AdvReac Type Severity Reaction Status Date / Time bee venom protein (honey bee) Allergy Anaphylaxis Verified 07/11/24 18:09 Cyanoacrylates Allergy Rash Verified 07/11/24 18:09 Surgical History H/O medial meniscus repair of right knee History of esophagogastroduodenoscopy (EGD) Social History household members: spouse current occupational status: employed Smoking Status: Never smoker alcohol intake: never ROS ROS ED ROS Narrative Constitutional: No fever, no chills. HEENT: No sore throat. No neck pain. No loss of vision. No rhinorrhea. Cardiovascular: No chest pain. No palpitations. No pedal edema. Respiratory: No cough, no shortness of breath. Abdominal: No abdominal pain. No nausea. No vomiting. Genitourinary: No dysuria. No hematuria. Musculoskeletal: No myalgias. Positive right lateral knee pain/fibular head pain. Neurologic: No headaches. No dizziness. No lightheadedness. Skin: No rash. No change in color. Psychiatric: No depression. No anxiety. EXAM Physical Exam Narrative Exam Narrative: Afebrile. Vital signs noted. Nontoxic-appearing. Focused physical examination reveals mild tenderness to palpation in the area between the fibula proximally and the tibia. He is able to flex and extend his right knee. He does have mild tenderness of the fibular head. No crepitance. Neurovascular intact distally with palpable dorsalis pedis pulse. No calf tenderness or palpable cord. Const Vital Signs: 07/11/24 18:09 07/11/24 20:30 Temperature 97 F L 97.3 F L Temperature Source Temporal Pulse Rate 92 79 Respiratory Rate 18 18 Blood Pressure 143/100 H 135/85 H Blood Pressure Mean 114 101 Pulse Ox 100 96 Oxygen Delivery Method Room Air MDM MDM MDM Narrative Medical decision making narrative: Differential diagnosis includes but not limited to hairline fracture versus muscular strain versus ligamentous/fascial strain. I have very low suspicion for septic arthritis. He is not really having knee pain in the joint itself but more distal to the joint. X-rays were obtained of the right tibia and fibula and 2 views and interpreted by myself independently. I see no evidence of acute fracture. I reviewed the radiology report which confirms my independent interpretation. They do comment on mild soft tissue swelling. He already has a knee brace, and this may be where his brace is rubbing against his right lateral lower leg. I do not feel that ultrasound is indicated for DVT because his pain is on the lateral aspect of his right lower leg below the knee. As there is no evidence of fracture, I feel that he be discharged to follow-up with his orthopedic surgeon. He will continue ice and elevation and [id number] analgesics at home. He has a pair of crutches at home that he can use as well to help him ambulate. Return instructions were reviewed. Disposition is discharged home in stable condition. History & Record Review Discussion w/independent historian: Patient Additional record(s) reviewed:: Prior ED visit (Prior visits for knee pain) Radiography Diagnostic Testing: Clinical Impression(s) from Imaging Studies Tibia/Fibula X-Ray 07/11/24 18:55 IMPRESSION: Mild soft tissue swelling. Degenerative changes. No acute osseous abnormalities. Electronically Signed: Delbert Harper, at 20:11 EST , Discharge Plan Triage Chief Complaint: Lower Extremity Injury ED Provider: Shiv Garcia Dx/Rx/DC Orders Clinical Impression: Pain in right lower leg Instructions: ED Pain, Acute, Uncertain Cause, ED Muscle Strain, Extremity Prescriptions: No Action naproxen sodium 550 mg tablet 550 mg PO BID Primary Care Provider: Simba Horton Referrals: Simba Horton DO [Primary Care Provider] - Activity Restrictions/Additional Instructions: Follow-up with your orthopedic surgeon, Dr. Lopez at the [facility] as scheduled on Tuesday. Take [id number] medications like ibuprofen or Tylenol for pain. Continue to wear your brace. Use your crutches to help ambulation. Continue elevation of your right leg at home. Return with new or worsening symptoms. Print Language: Swiss Disposition Disposition: Home, Self Care
--- NOTE | 2024-07-11 18:55 | RAD_ITS ---
EXAM: XR RIGHT TIBIA AND FIBULA, 2 VIEWS CLINICAL INDICATION: Pain TECHNIQUE: Frontal and lateral views of the right tibia and fibula. COMPARISON: Right knee, 1124. FINDINGS: BONES/JOINTS: Degenerative changes at the knee and minimally at the ankle. Calcaneal spurs and dorsal midfoot spurring. Superior patellar pole enthesophytes. No acute fracture. No subluxation. Normal alignment. No sclerotic or destructive changes observed. SOFT TISSUES: Mild soft tissue swelling. No radiopaque foreign body. RAD/Tibia & Fibula 2 Views IMPRESSION: Mild soft tissue swelling. Degenerative changes. No acute osseous abnormalities. Electronically Signed: Delbert Harper DO at 20:11 EST ,
[2024-07-11 20:30] VITALS: BP 135/85; PULSE 79; RESP 18; TEMP 36.3; O2SAT 96
== END 2024-07-11 20:39 | disposition home or self-care (01) ==
PROVIDERS: Emergency Provider Emergency Medicine; PCP Student in an Organized Health Care Education/Training Program; Visit Provider Emergency Medicine
DX: M79.661 Pain in right lower leg (principal); M25.561 Pain in right knee
CPT/HCPCS: 73590; 99282

== ENCOUNTER 2024-09-15 23:46 | Emergency (ER) | payer MEDICAID, SELFPAY ==
[2024-09-15 23:46] VITALS: BP 136/92; PULSE 76; RESP 16; TEMP 36.6; O2SAT 98; BMI 34.2
--- NOTE | 2024-09-16 00:35 | RAD_ITS ---
EXAM: XR LEFT KNEE COMPLETE, 4 OR MORE VIEWS CLINICAL INDICATION: pain TECHNIQUE: Four or more views of the left knee. COMPARISON: Right knee radiographs of 04/08/2024. No comparisons left knee radiographs. FINDINGS: BONES/JOINTS: Unremarkable. No acute fracture. No subluxation. Normal alignment. Preservation of the joint space. No sclerotic or destructive changes observed. SOFT TISSUES: Small suprapatellar knee effusion. No opaque foreign body. RAD/Knee 4 or More Views IMPRESSION: Small knee effusion. No acute osseous abnormality. Electronically Signed: Daljit Benavides MD at 5:05 EST ,
[2024-09-16] MEDS: morphine 10 MG/ML Syringe 8 MG IM (00:43)
[2024-09-16] MEDS: Ondansetron ODT 4 MG Tablet PO (00:43)
--- NOTE | 2024-09-16 01:12 | EX.ED.DYSGE1 ---
HPI History of Present Illness Chief Complaint: Lower Extremity Injury Informant: patient and spouse/S.O. Narrative Narrative: Patient is a 39-year-old male with past medical history of of gout and asthma. He states roughly 12 hours ago he was kneeling on the ground and he twisted. He states his knee turned but not his foot and he felt a pop and had pain after this motion. He states he was able to get up and ambulate and felt that if he just rested throughout the day the pain would improve. However he states the pain is worsening and has had increased swelling and with concern for internal injury presents for evaluation [facility] Medical History Gout Asthma Home Medications ?Medication ?Instructions ?Recorded ?Last Taken ?Type naproxen sodium 550 mg tablet 550 mg PO BID 07/11/24 Unknown History oxycodone 5 mg tablet 5 mg PO Q6H PRN pain 3 days #12 09/16/24 Unknown Rx tabs Allergy/AdvReac Type Severity Reaction Status Date / Time bee venom protein (honey bee) Allergy Anaphylaxis Verified 07/11/24 18:09 Cyanoacrylates Allergy Rash Verified 07/11/24 18:09 Surgical History H/O medial meniscus repair of right knee History of esophagogastroduodenoscopy (EGD) Social History household members: spouse current occupational status: employed Smoking Status: Never smoker alcohol intake: never ROS ROS ED Constitutional Constitutional ED: Denies chills or fever(s) ENT ENT ED: Denies sore throat Cardiovascular Cardiovascular: Denies chest pain Respiratory/Chest Respiratory/Chest: Denies cough or dyspnea Gastrointestinal Gastrointestinal: Denies abdominal pain, diarrhea, nausea or vomiting Musculoskeletal Musculoskeletal: Reports other Details: Positive left knee pain Integumentary Denies Abrasions or rash Neurologic Neurologic: Denies headache(s), paresthesias or weakness Hematologic/Lymphatic Hematologic/Lymphatic: Denies easy bleeding or easy bruising EXAM Physical Exam Const Vital Signs: 09/15/24 23:46 09/16/24 02:01 Temperature 97.9 F 98.6 F Temperature Source Oral Pulse Rate 76 71 Respiratory Rate 16 18 Blood Pressure 136/92 H 128/84 H Blood Pressure Mean 106 98 Pulse Ox 98 99 Oxygen Delivery Method Room Air Positive well nourished and well developed General Appearance ED: well developed HEENT HEENT Narrative: Normocephalic atraumatic Eyes PERRL and EOMs intact bilaterally General Eye ED: Negative for scleral icterus Neck supple Resp normal respiratory effort and clear to auscultation bilaterally Cardio regular rate and regular rhythm Extremity Extremity Narrative: Left lower extremity is neurovascularly intact. Patient has mild soft tissue swelling with faint joint effusion to the anterior aspect of the left knee. There is no obvious deformity noted. Patellar tendon is intact. There is mild laxity of the left MCL compared to right indicating a grade 2 sprain. No abrasions or ecchymosis noted Remainder of the exam is normal Neuro oriented x3, CN's II-XII intact bilaterally and no sensory deficits noted Sensorium / Orientation: alert Psych mental status grossly normal Skin no rashes or lesions noted and no wounds MDM MDM MDM Narrative Medical decision making narrative: Patient arrived to the ER with stable vitals and reported a mechanical injury to his left knee with a twisting motion. Differential diagnosis is for patellar fracture versus tibial plateau fracture versus patellar tendon/quadriceps tendon rupture versus ligament sprain or tear. In order to rule out a potential fracture such as patellar or tibial plateau an x-ray was obtained. This revealed no acute bony injury and did show mild joint effusion. By exam there is mild laxity of his left MCL compared to right indicating a grade 2 sprain. However he is close he is neurovascular intact he does not have physical exam findings to suggest infection or DVT and therefore there is no need for further workup and he can follow-up with orthopedics as an outpatient and is otherwise safe for discharge History & Record Review Discussion w/independent historian: Patient and Significant other Radiography Diagnostic Testing: X-ray of the left knee as interpreted by the emergency medicine physician reveals no acute fracture or dislocation but there is a small joint effusion noted. Discharge Plan Triage Chief Complaint: Lower Extremity Injury ED Provider: Fritz Beasley Dx/Rx/DC Orders Clinical Impression: Grade 2 sprain of medial collateral ligament of left knee, History of gout, Asthma Instructions: Medial Collateral Ligament Sprain, ED Knee Sprain Prescriptions: New oxycodone 5 mg tablet 5 mg PO Q6H PRN (Reason: pain) 3 Days Qty: 12 0RF No Action naproxen sodium 550 mg tablet 550 mg PO BID Primary Care Provider: Simba Horton Referrals: Joaquín Lopez MD [Non-Staff] - Simba Horton DO [Primary Care Provider] - Activity Restrictions/Additional Instructions: Your exam indicate a partial tear to your MCL knee ligament. Wear your knee immobilizer for stabilization of this and follow-up with orthopedics to discuss further testing such as MRI to further evaluate your symptoms. Return to the ER should you have any further concerns Print Language: Czech Disposition Disposition: Home, Self Care Discharge Date/Time: 09/16/24 02:02
[2024-09-16] MEDS: oxyCODONE 5 MG Tablet 10 MG PO (01:50)
[2024-09-16 02:01] VITALS: BP 128/84; PULSE 71; RESP 18; TEMP 37; O2SAT 99
== END 2024-09-16 02:02 | disposition home or self-care (01) ==
PROVIDERS: Emergency Provider Emergency Medicine; PCP Student in an Organized Health Care Education/Training Program; Visit Provider Emergency Medicine
DX: S83.412A Sprain of medial collateral ligament of left knee, initial encounter (principal); J45.909 Unspecified asthma, uncomplicated; M10.9 Gout, unspecified; X50.9XXA Other and unspecified overexertion or strenuous movements or postures, initial encounter; Y93.89 Activity, other specified
CPT/HCPCS: 73564; 96372; 99283

== ENCOUNTER 2024-11-27 15:36 | Emergency (ER) | payer OTHER, MEDICAID, SELFPAY ==
[2024-11-27 15:36] VITALS: BP 161/94; PULSE 105; RESP 16; TEMP 36.4; O2SAT 100; BMI 32.8
[2024-11-27 15:40] VITALS: BP 152/101; PULSE 94; RESP 18; TEMP 36.4; O2SAT 99
--- NOTE | 2024-11-27 16:06 | EDS_ITS ---
HPI History of Present Illness Chief Complaint: General Illness Narrative Narrative: 39-year-old male past medical history of previous knee problems states that he had surgery performed by Dr. Lopez at the [facility] on 16 November, approximately 10 days ago. He is now follow-up for the next 2 days. He states that Dr. Lopez had removed the meniscal cartilage in his left knee. He had the same surgery performed on his right knee about a year ago. He states that there is a small area on the left knee where there is a stitch that might be infected. Last Tuesday approximately 6 days ago, he started feeling weak and lightheaded. He felt feverish as well. He developed petechiae on his bilateral lower extremities and on his trunk. He is concerned that he may have an infection in his knee. [facility] Medical History Tear of meniscus of left knee Gout Asthma Home Medications ?Medication ?Instructions ?Recorded ?Last Taken ?Type naproxen sodium 550 mg tablet 550 mg PO BID 07/11/24 U nknown History oxycodone 5 mg tablet 5 mg PO Q6H PRN pain 3 days #12 09/16/24 Unknown Rx tabs Allergy/AdvReac Type Severity Reaction Status Date / Time bee venom protein (honey bee) Allergy Anaphylaxis Verified 11/27/24 15:37 Cyanoacrylates Allergy Rash Verified 11/27/24 15:37 Family History no significant family his Surgical History H/O medial meniscus repair of right knee History of esophagogastroduodenoscopy (EGD) Surgical History no surgical history Social History household members: spouse current occupational status: employed Smoking Status: Never smoker alcohol intake: never ROS ROS ED ROS Narrative Review of systems positive for feeling feverish, lightheadedness/generalized weakness. Developed petechiae on bilateral lower extremities and on abdomen. Denies other bleeding diathesis or easy bruising. EXAM Physical Exam Narrative Exam Narrative: Afebrile. Vital signs noted. Nontoxic-appearing. Cardiovascular examination feels a regular rate and rhythm. Lungs are clear to auscultation bilaterally. Abdomen is soft, nontender, without guarding or rebound. Positive bowel sounds. Neurological examination is nonfocal and nonlateralizing. Inspection of the left knee does show a small area with minimal erythema. Positive flexion extension left knee, no pain with passive range of motion. Neurovascular intact distally. Skin examination does show nonblanching petechiae on the bilateral lower extremities diffusely and on the abdomen. Const Vital Signs: 11/27/24 15:36 11/27/24 15:40 11/27/24 15:48 Temperature 97.6 F L 97.6 F L Temperature Source Oral Oral Pulse Rate 105 H 94 Respiratory Rate 16 18 Respiratory Effort Normal Short of Breath Respiratory Pattern Normal Blood Pressure 161/94 H 152/101 H Blood Pressure Mean 116 118 Pulse Ox 100 99 Oxygen Delivery Method Room Air Room Air MDM MDM MDM Narrative Medical decision making narrative: Differential diagnosis includes but not limited to vasculitis versus low platelets. I have very low suspicion for septic arthritis of the left knee given his clinical examination as he has full active range of motion and no pain with passive range of motion and there is no erythema. He is afebrile here as well. I do not feel arthrocentesis is indicated. I will check a CBC and a CMP given his generalized lightheadedness and weakness as well as malaise. I reviewed his laboratory work and he has normal white count of 9.8, hemoglobin 15.1, hematocrit 43.7, platelet count 228. CMP is grossly unremarkable as well. X-ray of the left knee and 4 views obtained and interpreted by myself independently shows no evidence of an effusion or fracture. At this point in time, I have very low suspicion for septic arthritis status post surgery as he is able to ambulate to the bathroom without difficulty. I was able to discuss the patient with Dr. Lopez at the [facility], who states that he had called in an antibiotic for the patient on Tuesday, yesterday which it was confirmed that the patient is currently taking. It was thought that this was more of a stitch granuloma on his left lateral, distal knee. Dr. Lopez was able to confirm and agrees that arthrocentesis is not indicated without the presence of fever or white count. It was thought that he could follow-up with him on , 2 days from now. This is already a scheduled postoperative appointment. Additionally, for his petechiae, he may have more of a postviral petechiae and he will follow-up with his primary care provider in the next 3 to 5 days. Return instructions to the emergency department were reviewed. Disposition is discharged home in stable condition. History & Record Review Discussion w/independent historian: Patient Lab Data Attestation: I reviewed the patient's lab results. Labs: Laboratory Results - last 24 hr 11/27/24 16:22 WBC 9.8 RBC 5.12 Hgb 15.1 Hct 43.7 MCV 85.4 MCH 29.5 MCHC 34.6 RDW Std Deviation 36.1 RDW Coeff of Jerzy 11.7 Plt Count 228 MPV 9.7 Immature Gran % (Auto) 0.500 Neut % (Auto) 72.6 H Lymph % (Auto) 16.8 L [place] % (Auto) 7.6 Eos % (Auto) 1.9 Baso % (Auto) 0.6 Absolute Neuts (auto) 7.1 Absolute Lymphs (auto) 1.64 Nucleated RBC % 0 Sodium 138 Potassium 3.8 Chloride 103 Carbon Dioxide 22.5 Anion Gap 13 BUN 14 Creatinine 0.93 Estim Creat Clear Calc 137.75 Est GFR (MDRD) Non-Af 106 BUN/Creatinine Ratio 15.2 Glucose 86 Calcium 9.5 Total Bilirubin 0.60 AST 25 ALT 34 Alkaline Phosphatase 66 Total Protein 7.3 Albumin 4.7 Globulin 2.6 Albumin/Globulin Ratio 1.8 Radiography Diagnostic Testing: Clinical Impression(s) from Imaging Studies Knee X-Ray 11/27/24 17:05 IMPRESSION: NO EFFUSION ACUTE FRACTURE OR DISLOCATION. Reading [facility] Discussion w/another healthcare provider: Color Tester (Dr. Lopez, orthopedics [facility]) Discharge Plan Triage Chief Complaint: General Illness ED Provider: Shiv Garcia Dx/Rx/DC Orders Clinical Impression: Petechiae, Status post arthroscopic surgery of left knee, Stitch granuloma Instructions: ED Post Op Wound Check, Pain, ED Petechiae Prescriptions: No Action oxycodone 5 mg tablet 5 mg PO Q6H PRN (Reason: pain) 3 Days Qty: 12 0RF naproxen sodium 550 mg tablet 550 mg PO BID Primary Care Provider: Simba Horton Referrals: Simba Horton, [Primary Care Provider] - 3-5 Days if not improving Activity Restrictions/Additional Instructions: Follow-up with Dr. Lopez on , 2 days from now as scheduled. Continue the antibiotics he prescribed for you on Tuesday. Return with fever, new or worsening symptoms. Print Language: Armenian Disposition Disposition: Home, Self Care
[2024-11-27 16:29] LABS: Absolute Lymphocyte Count 1.64 X10^3/uL (0.83-4.51); Absolute Neutrophil Count 7.1 X10^3/uL (2.0-7.7); Basophil# 0.06 X10^3/uL; Basophil% 0.6 % (0-1); Eosinophil# 0.19 X10^3/uL; Eosinophils% 1.9 % (0-5); Hematocrit 43.7 % (40-54); Hemoglobin 15.1 g/dL (13.0-16.5); Lymphocyte # 1.64 X10^3/ul (0.83-4.51); Lymphocyte % 16.8 % (19-41); Mean Corp Hgb Conc 34.6 g/dL (32-36); Mean Corpuscular Hgb 29.5 pg (27.0-32.0); Mean Corpuscular Volume 85.4 fL (80-94); Mean Platelet Vol. 9.7 fl (6.2-12.0); Monocyte# 0.74 X10^3/uL; Monocyte% 7.6 % (0-10); NRBC Flagged by Analyzer 0 % (0-5); Neutrophil % 72.6 % (47-70); Platelet Count 228 K/mm3 (150-450); RBC Distribution Width CV 11.7 % (11.6-14.6); RBC Distribution Width SD 36.1 fl (35.1-43.9); Red Blood Count 5.12 M/mm3 (4.6-6.2); White Blood Count 9.8 K/mm3 (4.4-11.0)
--- NOTE | 2024-11-27 17:05 | RAD_ITS ---
PROCEDURE: KNEE 4 OR MORE VIEWS 11/27/2024 REASON FOR EXAM: PAIN TECHNIQUE: 4 view(s) of the left knee COMPARISON: Radiograph of the left knee dated 09/16/2024 FINDINGS: Bones: No fracture. No suspicious bone lesion. Joints: Normal alignment. Mild degenerative changes. Effusion: No effusion. Soft tissues: Soft tissues are unremarkable. Other: RAD/Knee 4 or More Views IMPRESSION: NO EFFUSION ACUTE FRACTURE OR DISLOCATION. Reading Location: [facility]
[2024-11-27 17:17] LABS: ALB/GLOB Ratio 1.8 RATIO (0.9-2.4); AST(SGOT) 25 U/L (<=37); Alanine Aminotransfer ALT/SGPT 34 U/L (<=46); Albumin, Serum 4.7 g/dL (3.5-5.0); Alkaline Phosphatase 66 U/L (40-129); Anion Gap 13 (5-15); BUN 14 mg/dL (4-19); BUN/Creat Ratio 15.2 RATIO (10-20); Calcium,Total 9.5 mg/dL (7.6-11.0); Carbon Dioxide 22.5 mmol/L (21.0-32.0); Chloride 103 mmol/L (98-108); Creatinine, Serum 0.93 mg/dL (0.70-1.20); EST Glomerular Filtration Rate 106 (>60); Estimated Creatinine Clearance 137.75 ml/min (50-250); Globulin 2.6 g/dL (2.2-4.2); Glucose 86 mg/dL (70-99); Potassium 3.8 mmol/L (3.3-5.1); Protein, Total 7.3 g/dL (5.9-8.4); Sodium Level 138 mmol/L (133-145)
[2024-11-27 18:00] VITALS: BP 132/86; PULSE 79; RESP 15; TEMP 37; O2SAT 100
== END 2024-11-27 18:00 | disposition home or self-care (01) ==
PROVIDERS: Emergency Provider Emergency Medicine; PCP Student in an Organized Health Care Education/Training Program; Visit Provider Emergency Medicine
DX: R23.3 Spontaneous ecchymoses (principal); R42 Dizziness and giddiness; R53.1 Weakness; Z98.890 Other specified postprocedural states
CPT/HCPCS: 73564; 80053; 85025; 99283; A4216

== ENCOUNTER → 2025-05-11 | Outpatient (CLI) | payer OTHER, SELFPAY ==
--- NOTE | 2025-05-11 07:43 | CT_ITS ---
PROCEDURE: EXTREMITY LOWER WITHOUT CONTRA 05/11/2025 REASON FOR EXAM: L FOOT PAIN Foot pain TECHNIQUE: Procedure Code: CTELWO Modality: CT Procedure: EXTREMITY LOWER WITHOUT CONTRA Coronal and Sagittal reconstruction series were provided. CONTRAST: None One or more dose reduction techniques were used (e.g., Automated exposure control, adjustment of the mA and/or kV according to patient size, use of iterative reconstruction technique). RADIATION DOSE SUMMARY: CTDlvol: 15.4 mGy DLP: 522.6 mGycm COMPARISON: None FINDINGS: Bones: Mild spurring of the calcaneus. Distal tibia and fibula negative. Hindfoot negative. No fractures. Tarsals negative. Metatarsals and phalanges negative. Joints: Degenerative changes of the 1st metatarsophalangeal joint. Soft Tissues: Soft tissues negative. No radiopaque foreign body. CT/Extremity Lower without Contra IMPRESSION: Negative for acute abnormality of the left foot. No evidence of fracture. Reading Location: [id number]
--- OUTSIDE RECORDS SUMMARY | 2025-05-11 07:45 | XMS RPT_ITS | CCD ---
Author Organization [facility] Inform ion Partnership [facility] Care Team Providers Care Heel Boom Operator Name Role Phone JOEL HEIN Unavailable Unavailable FRITZ ANGELES Unavailable Unavailable Simba Horton DO Primary Care Provider Simba Horton DO Primary Care Provider Simba Horton DO Primary Care Provider Simba Horton DO Primary Care Provider Simba Horton DO Primary Care Provider Davie ANTHROPOLOGY INSTRUCTOR.Shelly CALDERON Unavailable Be ANTHROPOLOGY INSTRUCTOR.Tuan CALDERON Unavailable Dr. Simba Horton DO Primary Care Provider Dr. Simba Horton DO Referring Provider Davon Mckeon Attending Provider [phone] Dr. Fritz Beasley DO Attending Provider Dr. Fritz Beasley DO Emergency Provider Shiv Garcia MD Emergency Provider Lex ANTHROPOLOGY INSTRUCTOR.Ashlee CALDERON Unavailable SIMBA HORTON Primary Care Unavailable TUAN PUENTES Attending Unavailable SIMBA HORTON Primary Care Unavailable SELF Referring Unavailable SIMBA HORTON Attending Unavailable SIMBA HORTON Referring Unavailable SIMBA HORTON Primary Care Unavailable SIMBA HORTON Primary Care Unavailable JOANNE ANDERSEN Attending Unavailable ROBI HENDRICKSON Referring Unavailable HORTON, SIMBA L Primary Care Unavailable HORTON, SIMBA L Primary Care Unavailable HANG COLÓN Referring Unavailable HORTON, SIMBA L Attending Unavailable HORTON, SIMBA L Primary Care Unavailable HORTON, SIMBA L Primary Care Unavailable SHELLY BRODERICK Attending Unavailabl e HORTON, SIMBA L Primary Care Unavailable HORTON, SIMBA L Primary Care Unavailable ROBI HENDRICKSON Referring Unavailable VI TREVINO JR Attending Unavailable SEBAS LAWRENCE Attending Unavailable HORTON, SIMBA L Primary Care Unavailable LAWRENCESEBAS Referring Unavailable HORTON, SIMBA L Primary Care Unavailable HORTON, SIMBA L Attending Unavailable HORTON, SIMBA L Primary Care Unavailable HORTON, SIMBA L Primary Care Unavailable KENISHA NEWBY Attending Unavailable ROBI HENDRICKSON Referring Unavailable ReodicShiv solares Attending Unavailable Horton, Simba Primary Care Unavailable Fritz Beasley Attending Unavailable Horton, Simba Primary Care Unavailable Assessment, Health Risk Attending Unavaila ble Horton, Simba Primary Care Unavailable Horton, Simba Primary Care Unavailable Cheryl Kimbrough Attending Unavailable Cheryl Kimbrough Referring Unavailable Joaquín Lopez Attending Unavailable Joaquín Lopez Referring Unavailable Horton, Simba Primary Care Unavailable Horton, Simba Referring Unavailable Davon Mckeon Attending Unavailable Horton, Simba Primary Care Unavailable ReShiv holder Attending Unavailable Horton, Simba Primary Care Unavailable Allergies Allergy Classification Reported Allergen(s) Allergy Type Date of Onset Reaction(s) Facility (20 sources) BEE STING; Translations: [BEE STING] Propensity to adverse reactions (disorder) 3 Swelling [facility] Repository (20 sources) Octyl 2-Cyanoacrylate Drug Allergy 1 Rash [facility] (4 sources) bee venom protein (honey bee) Allergy to substance 3 Anaphylaxis [facility] (2 sources) SURGICAL GLUE Allergy to substance 1 Rash [facility] (3 sources) Cyanoacrylates; Translations: [Cyanoacrylates] Allergy to substance 3 Rash [facility] (1 source) 2-OCTYL CYANOACRYLATE; Translations: [2-OCTYL CYANOACRYLATE] Propensity to adverse reactions to drug (disorder) 1 [facility] [place] [facility] (1 source) bee venom protein (honey bee) Drug allergy (disorder) [facility] Repository Medications Current Medications Medication Drug Class(es) Dates Sig (Normalized) Sig (Original) [id number] 200 actuat albuterol 0.09 mg/actuat metered dose inhaler (20 sources) beta2-Adrenergic Agonist Start: 08-02-2023 End: 12-02-2023 take 2 puff(s) by inhalation every six hours as needed albuterol HFA (PROAIR HFA) 90 mcg/actuation inhaler Inhale 2 Puffs as instructed every 6 hours as needed. 1 Each 0 08/02/2023 12/02/2023 Discontinued Start: 07-02-2020 End: 05-01-2024 take 2 puff(s) by inhalation every four hours as needed albuterol HFA (PROAIR HFA) 90 mcg/actuation inhaler Inhale 2 Puffs as instructed every 4 hours as needed. 18 g 1 05/01/2024 Active Comment on above: Inhale 2 Puffs as in structed every 4 hours as needed. Inhale 2 Puffs as in structed every 6 hours as needed. allopurinol 100 mg oral tablet (20 sources) Xanthine Oxidase Inhibitor Start: 2 End: 5 take 1 tablet by mouth once daily allopurinol (ZYLOPRIM) 100 mg tablet Take 1 tablet by mouth once daily. For gout. 30 tablet 10/01/2024 Active Comment on above: Take 1 tablet by rosalio once daily. For gout. ALPRAZolam 0.25 mg oral tablet (20 sources) Benzodiazepine Start: End: 5 take 1 tablet by mouth every 30 days as needed ALPRAZolam (XANAX) 0.25 mg tablet Indications: Situational anxiety Take 1 tablet by mouth as needed for up to 30 days. 30 tablet 03/15/2025 04/14/2025 Active Start: 11-05-2024 End: 01-02-2025 take 1 tablet by mouth every 30 days as needed ALPRAZolam (XANAX) 0.25 mg tablet Indications: Situational anxiety Take 1 tablet by mouth as needed for up to 30 days. 30 tablet 12/03/2024 01/02/2025 Active Start: 07-25-2024 End: 08-04-2024 take 1 tablet by mouth every eight hours as needed for anxiety and anxiety ALPRAZolam (XANAX) 0.25 mg tablet Indications: Situational anxiety Take 1 tablet by mouth three times a day as needed for up to 10 days. 30 tablet 1 07/25/2024 08/04/2024 Active Start: 04-26-2024 End: 05-06-2024 take 1 tablet by mouth every eight hours as needed for anxiety and anxiety ALPRAZolam (XANAX) 0.25 mg tablet Indications: Situational anxiety Take 1 tablet by mouth three times a day as needed for up to 10 days. 14 tablet 04/26/2024 05/06/2024 Active Start: 04-25-2024 End: 04-26-2024 ALPRAZolam (XANAX) 0.25 mg t ablet Indications: Situational anxiety Take 1 tablet by mouth as needed for up to 10 days. 14 tablet 04/25/2024 04/26/2024 Discontinued Start: 12-02-2023 End: 12-12-2023 ALPRAZolam (XANAX) 0.25 mg t ablet Indications: Situational anxiety Take 1 tablet by mouth as needed for up to 10 days. 14 tablet 0 12/02/2023 12/12/2023 Active Comment on above: Take 1 tablet by rosalio as needed for up to 10 days. Amino Acids (20 sources) amino acids (BCA A ORAL) Take by mouth once daily. Active amino acids (BCA A ORAL) Take by mouth once daily. 0 Active amino acids (BCA A ORAL) Take by mouth. 0 Active Comment on above: Take by mouth. Take by mouth once d aily. amoxicillin 500 mg oral capsule (2 sources) Penicillin-class Antibacterial Start: End: take 1 capsule by mouth twice daily amoxicillin (AMOXIL) 500 mg capsule Indications: Strep throat Take 1 capsule by mouth two times a day for 10 days. 20 capsule 06/26/2024 07/06/2024 Active azithromycin 250 mg oral tablet (1 source) Macrolide Antimicrobial Start: 025 End: azithromycin (ZITHROMAX Z-ARSLAN) 250 mg tablet Indications: Acute non-recurrent pansinusitis , PND (post-nasal drip) , Body aches Take 2 tablets day one, then, 1 tablet daily until gone. 6 tablet 04/24/2025 04/29/2025 Active celecoxib 100 mg oral capsule (9 sources) Nonsteroidal Anti-inflammatory Drug Start: take 1 capsule by mouth twice daily as needed for pain celecoxib (CELEBREX) 100 mg capsule Take 1 capsule by mouth two times a day. As needed for joint pain, take with food 60 capsule 3 01/18/2025 Active cetirizine hydrochloride 10 mg oral tablet (20 sources) Histamine-1 Receptor Antagonist Start: take 1 tablet by mouth once daily cetirizine (ZYRTEC) 10 mg tablet Take 10 mg by mouth once daily. 0 07/22/2012 Active Comment on above: Take 10 mg by mouth once daily. cyclobenzaprine hydrochloride 10 mg oral tablet (20 sources) Muscle Relaxant Start: End: take 1 tablet by mouth three times daily as needed for muscle spasms cyclobenzaprine (FLEXERIL) 10 mg tablet Indications: Acute right-sided low back pain with right-sided sciatica Take 1 tablet by mouth three times a day as needed for muscle spasm. 30 tablet 04/23/2024 Active Start: 12-31-2020 take 1 tablet by rosalio three times daily as needed for muscle spasms cyclobenzaprine (FLEXERIL) 10 mg tablet Indications: Acute right-sided low back pain with right-sided sciatica Take 1 tablet by mouth three times daily as needed for Muscle Spasm. 30 tablet 0 12/31/2020 Active Comment on above: Take 1 tablet by rosalio three times daily as needed for Muscle Spasm. Take 1 tablet by rosalio th three times a day as needed for muscle spasm. 12 hr dextromethorphan hydrobromide 30 mg / guaiFENesin 600 mg extended release oral tablet (2 sources) Uncompetitive Z-aeiwek-J-aspartate Receptor Antagonist, Sigma-1 Agonist Start: End: take 1 tablet by mouth twice daily dextromethorphan-gu aiFENesin (MUCINEX DM) 30-600 mg per tablet Indications: Acute non-recurrent pansinusitis , PND (post-nasal drip) , Body aches Take 1 tablet by mouth two times a day for 10 days. 20 tablet 04/24/2025 05/04/2025 Active doxycycline hyclate 100 mg oral capsule (5 sources) Tetracycline-class Drug Start: End: take 1 capsule by mouth twice daily doxycycline hyclate (VIBRAMYCIN) 100 mg capsule Indications: Acute non-recurrent pansinusitis , PND (post-nasal drip) , Body aches Take 1 capsule by mouth two times a day for 10 days. 20 capsule 04/30/2025 05/10/2025 Active Start: 05-17-2022 End: 02-24-2023 take 1 tablet by mouth twice daily doxycycline (VIBRA-TABS) 100 mg tablet Indications: Acute non-recurrent maxillary sinusitis Take 1 tablet by mouth twice daily for 10 days. 20 tablet 0 02/14/2023 02/24/2023 Active Comment on above: Take 1 tablet by rosalio th twice daily for 10 days. 2 ml dupilumab 150 mg/ml auto-injector (20 sources) Interleukin-4 Receptor alpha Antagonist Start: 11-07-2023 End: 07-25-2024 dupilumab 300 mg/2 mL subcutaneous syringe (DUPIXENT SYRINGE) Indications: Eosinophilic esophagitis Inject 2 mL subcutaneously one time a week. 12 Each 3 11/07/2023 07/25/2024 Discontinued Start: 08-01-2023 End: 09-13-2024 inject 300 mg by subcutaneous injection every week dupilumab (DUPIXENT PEN) 300 mg/2 mL pen injection Indications: Eosinophilic esophagitis Inject 300 mg subcutaneously one time a week. For eosinophilic esophagitis; ICD10 = K20.0 12 Each 3 09/13/2024 Active Comment on above: Inject 300 mg subcut aneously one time a week. Inject 2 mL subcutan eously one time a week. [id number] 0.3 ml EPINEPHrine 1 mg/ml auto-injector (20 sources) alpha-Adrenergic Agonist, beta-Adrenergic Agonist, Catecholamine Start: EPINEPHrine (EPIPEN) 0.3 mg/0.3 mL auto-injector Inject at onset of bee venom sting 2 Each 1 06/05/2024 Active fluticasone propionate 0.05 mg/actuat metered dose nasal spray (20 sources) Corticosteroid Start: take 1 spray(s) nasal route once daily at bedtime fluticasone (FLONASE) 50 mcg/actuation nasal spray Indications: Viral syndrome Use 1 [place] in each nostril daily at bedtime. 1 Each 10/07/2022 Active Comment on above: Use 1 [place] in each nostril daily at bedtime. furosemide 20 mg oral tablet (12 sources) Loop Diuretic Start: End: take 1 tablet by mouth once daily as needed for edema furosemide (LASIX) 20 mg tablet Indications: Bilateral leg edema Take 1 tablet by mouth once daily as needed (leg edema). As needed for leg edema 30 tablet 1 03/14/2025 Active hydrocortisone 25 mg/ml topical cream (4 sources) Corticosteroid Start: End: hydrocortisone (ANUSOL-HC) 2.5 % rectal cream by RECTAL route two times a day for 14 days. 28 g 11/19/2024 12/03/2024 Active meloxicam 15 mg oral tablet (20 sources) Nonsteroidal Anti-inflammatory Drug Start: take 1 tablet by mouth once daily as needed for pain meloxicam (MOBIC) 15 mg tablet Indications: Arthralgia, unspecified joint Take 1 tablet by mouth once daily. As needed for knee pain and swelling 90 tablet 1 01/07/2025 Active Start: 02-03-2022 End: 04-26-2023 take 1 tablet by mouth once daily at mealtime meloxicam (MOBIC) 15 mg tablet Take 1 tablet by mouth once daily. With food. 90 tablet 3 02/03/2022 04/26/2023 Discontinued Start: 11-25-2021 take 1 tablet by rosalio th once daily at mealtime meloxicam (MOBIC) 15 mg tablet Take 1 tablet by mouth once daily. With food. 30 tablet 2 11/25/2021 Active Comment on above: Take 1 tablet by rosalio th once daily. With food. methylPREDNISolone (6 sources) Corticosteroid Start: 04-24-2025 End: 04-30-2025 methylPREDNISolone (MEDROL, ARSLAN,) 4 mg Dose-Pack Indications: Acute non-recurrent pansinusitis , PND (post-nasal drip) , Body aches Take as instructed per package. 21 tablet 04/24/2025 04/30/2025 Active Start: 10-05-2019 End: 10-10-2019 take 1 tablet by mouth once Methylprednisolone (Medrol (Arslan)) 4 mg tablets,dose pack Discontinued 4 mg PO per package directions 21 5 October 05, 2019 1:00am October 09, 2019 1:00am October 10, 2019 1:07am montelukast 10 mg oral tablet (20 sources) Leukotriene Receptor Antagonist Start: 02-03-2022 take 1 tablet by mouth once daily at bedtime montelukast (SINGULAIR) 10 mg tablet Indications: Seasonal allergic rhinitis due to other allergic trigger Take 1 tablet by mouth daily at bedtime. 90 tablet 3 02/03/2022 Active Comment on above: Take 1 tablet by rosalio th daily at bedtime. naproxen sodium 550 mg oral tablet (20 sources) Nonsteroidal Anti-inflammatory Drug Start: 07-11-2024 End: 01-07-2025 take 1 tablet by mouth twice daily Naproxen Sodium 550 mg tablet Active 550 mg PO TWICE A DAY July 11, 2024 1:00am Start: 05-01-2024 End: 01-07-2025 take 1 tablet by mouth three times daily at mealtime naproxen (NAPROSYN) 500 mg tablet Indications: Acute right-sided low back pain with right-sided sciatica Take 1 tablet by mouth three times a day with meals. Take with food. 90 tablet 1 05/01/2024 01/07/2025 Discontinued Start: 12-06-2022 End: 05-26-2023 take 1 tablet by mouth every twelve hours as needed naproxen (NAPROSYN) 500 mg tablet Take 1 tablet by mouth twice daily as needed (for pain/inflammation). Take with food. 60 tablet 5 04/26/2023 05/26/2023 Start: 09-18-2018 End: 09-17-2019 take 1 tablet by mouth twice daily as needed for pain Naproxen 500 MG tablet Discontinued 500 mg PO TWICE DAILY NEEDED as needed for Pain September 18, 2018 9:14pm September 17, 2019 3:12pm Comment on above: Take 1 tablet by rosalio th twice daily as needed (for pain/inflammation). Take with food. omeprazole 40 mg delayed release oral capsule (20 sources) Proton Pump Inhibitor Start: 024 take 1 capsule by mouth twice daily 30 minutes before breakfast omeprazole (PRILOSEC) 40 mg capsule Take 1 capsule by mouth two times a day. Take 30 min before breakfast and dinner 180 capsule 3 05/16/2024 Active Start: 04-13-2021 End: 05-01-2024 take 1 capsule by mouth once daily Omeprazole 40 mg Capsule,Delayed Release(Dr/Ec) Discontinued 40 mg PO DAILY April 13, 2021 12:00am April 08, 2024 8:50pm Comment on above: Take 1 capsule by [facility] once daily. oseltamivir 75 mg oral capsule (4 sources) Neuraminidase Inhibitor Start: 10-11-19 End: 10-16-19 take 1 capsule by mouth twice daily oseltamivir (TAMIFLU) 75 mg capsule Indications: Flu-like symptoms Take 1 capsule by mouth two times a day for 5 days. 10 capsule 0 10/11/2023 10/16/2023 Active Comment on above: Take 1 capsule by [facility] two times a day for 5 days. oxyCODONE hydrochloride 5 mg oral tablet (2 sources) Opioid Agonist Start: 09-16-19 take 1 tablet by mouth every six hours as needed for pain Oxycodone 5 mg tablet Active 5 mg PO EVERY 6 HOURS as needed for pain 12 September 16, 2024 Start: 04-08-2024 End: 07-11-2024 take 1 tablet by mouth every eight hours as needed for pain Oxycodone 5 mg tablet Discontinued 5 mg PO Q8H as needed for pain 10 April 08, 2024 July 11, 2024 7:34pm predniSONE 10 mg oral tablet (20 sources) Start: 03-06-2025 End: 03-15-2025 predniSONE (DELTASONE) 10 mg tablet Indications: Arthralgia, unspecified joint Take 4 tabs daily for 3 days, then 2 tabs daily for 3 days, then 1 tab daily for 3 days with food. 21 tablet 03/06/2025 03/15/2025 Active Start: 01-07-2025 End: 01-16-2025 predniSONE (DELTASONE) 10 mg tablet Indications: Arthralgia, unspecified joint Take 4 tabs daily for 3 days, then 2 tabs daily for 3 days, then 1 tab daily for 3 days with food. 21 tablet 01/07/2025 01/16/2025 Active Start: 08-02-2023 End: 08-07-2023 take 2 tablets by mouth once daily predniSONE (DELTASONE) 20 mg tablet Take 2 tablets by mouth once daily for 5 days. 10 tablet 0 08/02/2023 08/07/2023 Active Start: 12-31-2020 End: 02-06-2023 take 2 tablets by mouth once daily at mealtime predniSONE (DELTASONE) 20 mg tablet Indications: Mild intermittent asthma, uncomplicated Take 2 tablets by mouth once daily for 4 days. Take daily with food. 8 tablet 0 02/02/2023 02/06/2023 Active Comment on above: Take 2 tablets by mo uth once daily. Take 2 tablets by mo uth once daily for 4 days. Take daily with food. Take 2 tablets by mo uth once daily for 5 days. sertraline 100 mg oral tablet (20 sources) Serotonin Reuptake Inhibitor Start: 07-25-2024 End: 04-07-2025 take 1 tablet by mouth once daily sertraline (ZOLOFT) 100 mg tablet Indications: Situational anxiety , THA (generalized anxiety disorder) , Situational depression Take 1 tablet by mouth once daily. 90 tablet 1 01/07/2025 Active Start: 12-02-2023 End: 07-25-2024 take 1 tablet by mouth once daily sertraline (ZOLOFT) 50 mg tablet Indications: Situational anxiety Take 1 tablet by mouth once daily. 90 tablet 12/02/2023 07/25/2024 Discontinued Start: 11-20-2021 End: 12-02-2023 take 1 tablet by mouth once daily at bedtime sertraline (ZOLOFT) 25 mg tablet Indications: Dysthymia Take 1 tablet by mouth once daily. At bedtime 30 tablet 5 11/20/2021 12/02/2023 Discontinued Comment on above: Take 1 tablet by rosalio th once daily. At bedtime Take 1 tablet by rosalio th once daily. traZODone hydrochloride 100 mg oral tablet (20 sources) Serotonin Reuptake Inhibitor Start: End: take 1-2 tablets by mouth once daily at bedtime traZODone (DESYREL) 100 mg tablet Indications: Situational insomnia TAKE 1 TO 2 TABLETS BY MOUTH ONCE DAILY AT BEDTIME 90 tablet 01/22/2025 Active Completed/Discontinued Medications Medication Drug Class(es) Dates Sig (Normalized) Sig (Original) acetaminophen 300 mg / codeine phosphate 30 mg oral tablet (1 source) Opioid Agonist Start: 04-08-2024 End: 07-11-2024 Acetaminophen-Codei ne 300-30 mg tablet Discontinued 1 {tbl} PO Q8H as needed for pain April 08, 2024 12:00am July 11, 2024 7:34pm acetaminophen 325 mg / HYDROcodone bitartrate 5 mg oral tablet (15 sources) Opioid Agonist Start: 05-31-2023 End: 12-02-2023 HYDROcodone-acetami nophen (NORCO) 5-325 mg per tablet acetaminophen 325 mg / oxyCODONE hydrochloride 5 mg oral tablet (20 sources) Opioid Agonist Start: 03-03-2024 End: 04-08-2024 Oxycodone-Acetamino phen (Percocet) 5-325 mg tablet Discontinued 1 {tbl} PO EVERY 6 HOURS as needed for pain 12 March 03, 2024 April 08, 2024 8:50pm Start: 12-09-2023 End: 01-07-2025 oxyCODONE-acetaminophen (PER COCET) 5-325 mg tablet 12/09/2023 01/07/2025 Discontinued amoxicillin 875 mg / clavulanate 125 mg oral tablet (9 sources) Penicillin-class Antibacterial Start: 08-27-2024 End: 09-06-2024 take 1 tablet by mouth twice daily amoxicillin-clavulanate potassium (AUGMENTIN) 875-125 mg per tablet Take 1 tablet by mouth two times a day for 10 days. 20 tablet 08/27/2024 09/06/2024 Start: 01-31-2023 End: 02-07-2023 take 1 tablet by mouth twice daily amoxicillin-clavulanic acid (AUGMENTIN) 875-125 mg per tablet Take 1 tablet by mouth twice daily for 7 days. 14 tablet 0 01/31/2023 02/07/2023 Active Start: 10-05-2019 End: 10-15-2019 Amoxicillin-Pot Clavulanate (Augmentin) 875-125 mg tablet Discontinued 1 {tbl} PO Q12H 20 October 05, 2019 1:00am October 14, 2019 1:00am October 15, 2019 1:08am Comment on above: Take 1 tablet by rosalio th twice daily for 7 days. aspirin 81 mg delayed release oral tablet (20 sources) Platelet Aggregation Inhibitor, Nonsteroidal Anti-inflammatory Drug End: 01-08-20 take 1 tablet by mouth once daily aspirin, enteric coated (ASPIRIN, ENTERIC COATED) 81 mg EC tablet Take 81 mg by mouth once daily. 01/07/2025 Discontinued benzonatate 100 mg oral capsule (20 sources) Non-narcotic Antitussive Start: 08-02-20 End: 08-02-20 take 2 capsules by mouth every eight hours as needed benzonatate (TESSALON PERLES) 100 mg capsule Take 2 capsules by mouth three times a day as needed. 30 capsule 0 08/02/2023 08/02/2023 Discontinued Start: 10-07-2022 End: 04-26-2023 take 1 capsule by mouth three times daily as needed for cough benzonatate (TESSALON PERLES) 100 mg capsule Indications: Viral syndrome Take 1 capsule by mouth three times daily as needed for cough. 21 capsule 10/07/2022 04/26/2023 Discontinued Comment on above: Take 1 capsule by mo [facility] three times daily as needed for cough. Take 2 capsules by m out three times a day as needed. budesonide 0.25 mg/ml inhalation suspension (20 sources) Corticosteroid Start: 03-09-20 End: 11-06-19 budesonide (PULMICORT) 0.5 mg/2 mL nebulizer solution For eosinophilic esophagitis. Mix 4 respules with 5 packs of Splenda and swallow daily. Do not eat or drink for 30 minutes after 720 mL 3 03/31/2023 11/05/2024 Discontinued Comment on above: For eosinophilic eso phagitis. Mix 4 respules with 5 packs of Splenda and swallow daily. Do not eat or drink for 30 minutes after busPIRone hydrochloride 5 mg oral tablet (20 sources) Start: 11-21-19 22 End: 12-13-19 24 take 1 tablet by mouth twice daily as needed for anxiety busPIRone (BUSPAR) 5 mg tablet Indications: Dysthymia , THA (generalized anxiety disorder) Take 1 tablet by mouth twice daily as needed (anxiety attack). 60 tablet 5 05/20/2023 Active Comment on above: Take 1 tablet by rosalio th twice daily as needed (anxiety attack). Creatinine, Bulk, 100 % powd (17 sources) End: 12-07-19 Creatinine, Bulk, 100 % powd Creatinine, Bulk , 100 % powd diclofenac sodium 75 mg delayed release oral tablet (20 sources) Nonsteroidal Anti-inflammatory Drug Start: 12-02-2023 End: 07-11-2024 take 1 tablet by mouth twice daily Diclofenac Sodium 75 mg tablet,delayed release (DR/EC) Discontinued 75 mg PO TWICE A DAY April 08, 2024 12:00am July 11, 2024 7:34pm hyoscyamine sulfate 0.125 mg oral tablet (20 sources) Start: 05-25-2021 End: 12-13-2023 take 1 tablet by mouth every four hours as needed for pain hyoscyamine (LEVSIN) 0.125 mg tablet Indications: Abdominal pain, unspecified abdominal location , Abdominal spasms Take 1 tablet by mouth every 4 hours as needed (abdominal cramping, abdominal pain). 20 tablet 1 12/08/2021 Active Comment on above: Take 1 tablet by rosalio th every 4 hours as needed (abdominal cramping, abdominal pain). ondansetron 4 mg disintegrating oral tablet (20 sources) Serotonin-3 Receptor Antagonist Start: 07-27-2021 End: 12-06-2022 take 2 tablets by mouth every eight hours as needed ondansetron orally disintegrating (ZOFRAN ODT) 4 mg disintegrating tablet Take 2 tablets by mouth every 8 hours as needed for nausea/vomiting. 20 tablet 0 07/27/2021 12/06/2022 Discontinued Start: 10-29-2020 End: 12-06-2022 take 1 tablet by mouth every eight hours as needed ondansetron orally disintegrating (ZOFRAN ODT) 4 mg disintegrating tablet Take 1 tablet by mouth every 8 hours as needed. 12 tablet 0 10/29/2020 12/06/2022 Discontinued Comment on above: Take 1 tablet by rosalio th every 8 hours as needed. Take 2 tablets by mo uth every 8 hours as needed for nausea/vomiting. polyethylene glycol 3350 [id number] mg / potassium chloride 2970 mg / sodium bicarbonate 6740 mg / sodium chloride 5860 mg / sodium sulfate 77883 mg powder for oral solution (11 sources) Osmotic Laxative Start: 11-12-2024 End: 01-07-2025 peg 3350-Electrolytes (GOLYTELY) 236-22.74-6.74 -5.86 gram suspension Take 4 L by mouth one time only. 11/12/2024 01/07/2025 Discontinued Start: 11-06-2024 End: 11-06-2024 peg 3350-Electrolytes (GOLYT MEDHAT) 236-22.74-6.74 -5.86 gram suspension Take 4,000 mL by mouth one time only for 1 dose. Refer to printed prep instructions from your provider. 4000 mL 11/06/2024 11/06/2024 Active 1000 ml sodium chloride 9 mg/ml injection (1 source) Start: 11-19-2024 End: 11-20-2024 take 30 mL intravenously every hour 30 mL/hr, INTRAVENOUS, CONTINUOUS, Starting on Tue11/19/24 at 0730, Until Tue11/20/24 at 0414, Preprocedure sucralfate 1000 mg oral tablet (17 sources) Aluminum Complex Start: 11-06-2020 End: 12-06-2022 take 1 tablet by mouth four times daily, then take 1 tablet by mouth 30 minutes before bedtime sucralfate (CARAFATE) 1 gram tablet Indications: Bile reflux gastritis Take 1 tablet by mouth four times daily. TAKE 1 PO 30 MINUTES BEFORE MEALS AND AT BEDTIME. 120 tablet 2 11/06/2020 12/06/2022 Discontinued Comment on above: Take 1 tablet by rosalio four times daily. TAKE 1 PO 30 MINUTES BEFORE MEALS AND AT BEDTIME. traMADol hydrochloride 50 mg oral tablet (20 sources) Opioid Agonist Start: 12-09-2023 End: 05-01-2024 traMADol (ULTRAM) 50 mg tablet 12/09/2023 05/01/2024 Discontinued vitamin b12 2.5 mg oral tablet (4 sources) Vitamin B12 Start: 09-18-2018 End: 09-17-2019 Cyanocobalamin (Vitamin B-12) 2,500 MCG tablet Discontinued ug PO DAILY September 18, 2018 1:00am September 17, 2019 3:12pm Start: 09-18-2018 End: 09-17-2019 take 1 ug by mouth once daily Cyanocobalamin (Vitamin B-12) Discontinued MCG PO DAILY September 18, 2018 1:00am September 17, 2019 3:12pm whey protein, concent-isolat e (WHEY PROTEIN, CONC-ISOLATE ORAL) (20 sources) End: 12-02-2023 whey protein, concent-isolat e (WHEY PROTEIN, CONC-ISOLATE ORAL) Take by mouth once daily. 12/02/2023 Discontinued End: 12-02-2023 whey protein, concent-isolat e (WHEY PROTEIN, CONC-ISOLATE ORAL) Take by mouth once daily. 0 12/02/2023 Discontinued whey protein, co ncent-isolate (WHEY PROTEIN, CONC-ISOLATE ORAL) Take by mouth once daily. 0 Active whey protein, co ncent-isolate (WHEY PROTEIN, CONC-ISOLATE ORAL) Take by mouth. 0 Active Comment on above: Take by mouth. Take by mouth once d aily. Problems Active Problems Problem Classification Problem Date Documented Da te Episodic/Chronic Adjustment disorders (20 sources) Reactive depression (situational); Translations: [Adjustment disorder with depressed mood] Onset: 07-25-2024 07-25-2024 Chronic Anxiety disorders (20 sources) Generalized anxiety disorder; Translations: [Generalized anxiety disorder] Onset: 02-03-2022 02-03-2022 Chronic Asthma (20 sources) Mild intermittent asthma; Translations: [Mild intermittent asthma, uncomplicated] Chronic Cardiac dysrhythmias (20 sources) Palpitations; Translations: [Palpitations] 08-24-2021 Episodic Coagulation and hemorrhagic disorders (2 sources) Petechiae; Translations: [Spontaneous ecchymoses] Onset: 04-23-2025 11-27-2024 Episodic Diseases of white blood cells (1 source) Leukocytosis; Translations: [Elevated white blood cell count, unspecified] 12-14-2024 Chronic Esophageal disorders (20 sources) Eosinophilic esophagitis; Translations: [Eosinophilic esophagitis] Onset: 05-25-2021 05-25-2021 Chronic Essential hypertension (4 sources) Elevated blood pressure; Translations: [Essential (primary) hypertension] 11-07-2022 Chronic Gout and other crystal arthropathies (20 sources) Primary gout; Translations: [Idiopathic gout, unspecified ankle and foot] Onset: 08-13-2019 08-13-2019 Chronic Intracranial injury (2 sources) Concussion injury of body structure; Translations: [Concussion] 10-12-2023 Episodic Miscellaneous mental health disorders (20 sources) Insomnia; Translations: [Other insomnia not due to a substance or known physiological condition] Onset: 05-01-2024 05-01-2024 Chronic Mood disorders (20 sources) Dysthymia; Translations: [Dysthymic disorder] Onset: 02-03-2022 02-03-2022 Chronic Open wounds of extremities (4 sources) Laceration of right middle finger; Translations: [Laceration without foreign body of right middle finger without damage to nail, initial encounter] 09-17-2019 Episodic Open wounds of extremities (4 sources) Laceration of hand; Translations: [Laceration without foreign body of left hand, initial encounter] 09-16-2020 Episodic Osteoarthritis (1 source) Unilateral primary osteoarthritis, left knee; Translations: [Unilateral primary osteoarthritis, left knee] Onset: 10-16-2024 Chronic Other circulatory disease (1 source) Elevated blood-pressure reading without diagnosis of hypertension; Translations: [Elevated blood-pressure reading, without diagnosis of hypertension] Episodic Other connective tissue disease (1 source) Pain of right lower leg; Translations: [Pain in right lower leg] 07-19-2024 Episodic Other connective tissue disease (1 source) H/O: gout; Translations: [Personal history of other diseases of the musculoskeletal system and connective tissue] 09-24-2024 Episodic Other connective tissue disease (1 source) Pain in left foot; Translations: [Pain in left foot] Onset: 05-03-2025 Episodic Other endocrine disorders (1 source) Hypotestosteronism; Translations: [Endocrine disorder, unspecified] 05-04-2023 Episodic Other gastrointestinal disorders (2 sources) Diarrhea; Translations: [Diarrhea, unspecified] Episodic Other injuries and conditions due to external causes (3 sources) Injury of left ankle; Translations: [Unspecified injury of left ankle, subsequent encounter] Episodic Other liver diseases (4 sources) Enzyme level - finding; Translations: [Elevated transaminase measurement] 05-04-2021 Episodic Other lower respiratory disease (2 sources) Cough; Translations: [Acute cough] 06-26-2024 Episodic Other nervous system disorders (1 source) Paresthesia of hand ; Translations: [Anesthesia of skin] 04-18-2024 Episodic Other nervous system disorders (1 source) Postoperative pain ; Translations: [Other acute postprocedural pain] 03-12-2024 Episodic Other non-traumatic joint disorders (3 sources) Acute ankle pain; Translations: [Pain in left ankle and joints of left foot] 12-05-2022 Episodic Other non-traumatic joint disorders (1 source) Effusion of right knee joint; Translations: [Effusion, right knee] 04-16-2024 Episodic Other non-traumatic joint disorders (3 sources) Pain in unspecified knee; Translations: [Acute knee pain] 03-12-2024 Episodic Other non-traumatic joint disorders (1 source) Swollen knee region; Translations: [Effusion, unspecified knee] 02-06-2024 Episodic Other non-traumatic joint disorders (2 sources) Joint pain; Translations: [Pain in unspecified joint] 01-10-2025 Episodic Other nutritional; endocrine; and metabolic disorders (20 sources) Obese class I; Translations: [Obesity, unspecified] Onset: 05-20-2018 05-20-2018 Chronic Other screening for suspected conditions (not mental disorders or infectious disease) (2 sources) Decreased testosterone level ; Translations: [Other specified abnormal findings of blood chemistry] 05-18-2023 Episodic Other upper respiratory disease (20 sources) Seasonal allergy; Translations: [Other seasonal allergic rhinitis] 09-22-2012 Chronic Other upper respiratory disease (20 sources) Allergic rhinitis; Translations: [Allergic rhinitis, unspecified] Onset: 02-03-2022 02-03-2022 Chronic Other upper respiratory disease (1 source) Chronic rhinitis; Translations: [Unspecified sinusitis (chronic)] Chronic Other upper respiratory infections (16 sources) Acute upper respiratory infection; Translations: [Acute upper respiratory infection, unspecified] Onset: 04-24-2025 Episodic Residual codes; unclassified (2 sources) Viral syndrome; Translations: [Other general symptoms and signs] 10-11-2023 Episodic Residual codes; unclassified (1 source) Chill; Translations: [Chills (without fever)] 12-07-2024 Episodic Residual codes; unclassified (1 source) FH: Thyroid disorder; Translations: [Family history of other endocrine, nutritional and metabolic diseases] 12-07-2024 Episodic Residual codes; unclassified (2 sources) Bilateral lower limb edema; Translations: [Localized edema] 01-10-2025 Episodic Residual codes; unclassified (2 sources) Generalized aches and pains; Translations: [Pain, unspecified] 04-24-2025 Episodic Residual codes; unclassified (1 source) Pain, unspecified; Translations: [Body aches] Onset: 04-24-2025 Episodic Unclassified (1 source) NO SHOW 07-06-2024 Unclassified (1 source) Acute cough; Translations: [Acute cough] Onset: 06-26-2024 Viral infection (1 source) Viral disease; Translations: [Viral infection, unspecified] Episodic Past or Other Problems Problem Classification Problem Date Documented Da te Episodic/Chronic Abdominal pain (20 sources) Abdominal pain; Translations: [Unspecified abdominal pain] Onset: 11-19-2020 Resolved: 11-19-2020 Episodic Acquired foot deformities (20 sources) Bunion; Translations: [Bunion of left foot] Onset: 04-26-2023 04-26-2023 Episodic Complications of surgical procedures or medical care (3 sources) Suture granuloma; Translations: [Other complications of procedures, not elsewhere classified, initial encounter] Onset: 12-07-2024 11-27-2024 Episodic Esophageal disorders (20 sources) Acute esophagitis; Translations: [Acute esophagitis] Onset: 01-21-2021 Resolved: 01-21-2021 Episodic Gastrointestinal hemorrhage (7 sources) Hematochezia; Translations: [Melena] Onset: 11-19-2024 11-05-2024 Episodic Hemorrhoids (12 sources) Internal hemorrhoids; Translations: [Other hemorrhoids] Onset: 01-10-2025 01-10-2025 Episodic Joint disorders and dislocations; trauma-related (1 source) Other tear of medial meniscus, current injury, left knee, initial encounter; Translations: [Other tear of medial meniscus, current injury, left knee, initial encounter] Onset: 10-16-2024 Episodic Nausea and vomiting (6 sources) Nausea, vomiting and diarrhea; Translations: [Nausea with vomiting, unspecified] Onset: 12-07-2024 05-04-2021 Episodic Other connective tissue disease (1 source) Pain in right lower leg; Translations: [Pain in right lower leg] Onset: 08-10-2024 Episodic Other gastrointestinal disorders (20 sources) Esophageal dysphagia; Translations: [Other dysphagia] Onset: 05-25-2021 05-25-2021 Episodic Other gastrointestinal disorders (20 sources) Abdominal bloating; Translations: [Abdominal distension (gaseous)] Onset: 05-01-2024 05-01-2024 Episodic Other gastrointestinal disorders (20 sources) Loose stool; Translations: [Other fecal abnormalities] Onset: 07-25-2024 07-25-2024 Episodic Other gastrointestinal disorders (1 source) Other dysphagia; Translations: [Esophageal dysphagia] Onset: 05-25-2021 Episodic Other injuries and conditions due to external causes (20 sources) Food lodged in esophagus; Translations: [Food in esophagus causing other injury, initial encounter] Onset: 05-20-2018 05-20-2018 Episodic Other lower respiratory disease (20 sources) Wheezing; Translations: [Wheezing] Onset: 08-13-2019 08-13-2019 Episodic Other non-traumatic joint disorders (19 sources) Shoulder pain; Translations: [Pain in right shoulder] Onset: 02-03-2022 02-03-2022 Episodic Other non-traumatic joint disorders (20 sources) Pain in right shoulder; Translations: [Pain in joint, shoulder region] Onset: 02-03-2022 02-03-2022 Episodic Other non-traumatic joint disorders (20 sources) Bilateral chronic pain of upper limbs; Translations: [Pain in right shoulder] Onset: 04-26-2023 04-26-2023 Episodic Residual codes; unclassified (1 source) Localized edema; Translations: [Bilateral leg edema] Onset: 01-07-2025 Episodic Residual codes; unclassified (1 source) Chills (without fever); Translations: [Chills (without fever)] Onset: 12-07-2024 Episodic Residual codes; unclassified (1 source) Family history of other endocrine, nutritional and metabolic diseases; Translations: [Family history of thyroid disorder] Onset: 12-07-2024 Episodic Residual codes; unclassified (1 source) Other specified postprocedural states; Translations: [S/P arthroscopic surgery of left knee] Onset: 12-07-2024 Episodic Spondylosis; intervertebral disc disorders; other back problems (20 sources) Acute back pain with sciatica; Translations: [Lumbago with sciatica, right side] Onset: 02-03-2022 02-03-2022 Episodic Sprains and strains (10 sources) Strain of calf muscle; Translations: [Strain of other muscle(s) and tendon(s) at lower leg level, right leg, initial encounter] Onset: 09-16-2024 11-07-2022 Episodic Unclassified (2 sources) Unknown / UNK(Unknown) Onset: 05-20-2018 Unclassified (1 source) Unspecified foreign body in esophagus causing other injury, initial encounter Onset: 05-20-2018 Results Test Name Value Interpretation Reference Range Facility [facility] 04-24-2025 CNOV Office Visit (FAMPWS ) CARL GROSS ([id number]) 1985 M Date Time Provider Department 04/24/25 2:00 PM [facility] During your visit today, we recorded the following information about you: Temperature Pulse Blood pressure Weight 98.5 degrees 89/minute 118/84 111.2 kg Tuan Puentes APRN.CNP 04/24/2025 2:15 PM Signed 04/24/2025 Recording using [employer] software for draft documentation of the visit was discussed with the patient/authorized medicare sales representative; all questions welcomed and answered. Patient/authorized medicare sales representative agreed to proceed HPI: The patient is a 40-year-old male presenting for evaluation of acute facial pressure and postnasal drip. Sinus Pressure and Post-Nasal Drip: - Onset: Tuesday afternoon/evening, approximately 2 days ago. - Initial symptom: Post-nasal drip. - Current symptoms: - Sinus pressure behind the eyes and throughout the head. - Ear popping with mild pain. - Coughing, likely due to post-nasal drainage. - No known exposure to sick contacts. - No fever, but Carl reports feeling on fire. - No sore throat. Arthritis: - Carl reports increased joint pain. - Carl is taking medication for arthritis. PAST MEDICAL HISTORY Diagnosis Date Acute right-sided back pain with sciatica Arthritis Asthma (HCC) Awareness under anesthesia Dysthymia 02/03/2022 Eosinophilic esophagitis TAH (generalized anxiety disorder) Generalized anxiety disorder Obstructive sleep apnea Palpitations Seasonal allergies Well adult exam Current Outpatient Medications on File Prior to Visit Medication Sig furosemide (LASIX) 20 mg tablet Take 1 tablet by mouth once daily as needed (leg edema). As needed for leg edema traZODone (DESYREL) 100 mg tablet TAKE 1 TO 2 TABLETS BY MOUTH ONCE DAILY AT BEDTIME celecoxib (CELEBREX) 100 mg capsule Take 1 capsule by mouth two times a day. As needed for joint pain, take with food sertraline (ZOLOFT) 100 mg tablet Take 1 tablet by mouth once daily. allopurinol (ZYLOPRIM) 100 mg tablet Take 1 tablet by mouth once daily. For gout. dupilumab (DUPIXENT PEN) 300 mg/2 mL pen injection Inject 300 mg subcutaneously one time a week. For eosinophilic esophagitis; ICD10 = K20.0 EPINEPHrine (EPIPEN) 0.3 mg/0.3 mL auto-injector Inject at onset of bee venom sting omeprazole (PRILOSEC) 40 mg capsule Take 1 capsule by mouth two times a day. Take 30 min before breakfast and dinner albuterol HFA (PROAIR HFA) 90 mcg/actuation inhaler Inhale 2 Puffs as instructed every 4 hours as needed. cyclobenzaprine (FLEXERIL) 10 mg tablet Take 1 tablet by mouth three times a day as needed for muscle spasm. fluticasone (FLONASE) 50 mcg/actuation nasal spray Use 1 [place] in each nostril daily at bedtime. montelukast (SINGULAIR) 10 mg tablet Take 1 tablet by mouth daily at bedtime. amino acids (BCAA ORAL) Take by mouth once daily. cetirizine (ZYRTEC) 10 mg tablet Take 10 mg by mouth once daily. No current facility-administered medications on file prior to visit. Review of Systems: Constitutional: (+) malaise, (-) fever Head: (+) sinus pressure Ears/Nose/Mouth/Throat: (+) postnasal drainage, (+) ear popping, (+) ear pain Respiratory: (+) cough Musculoskeletal: (+) joint pain Physical Exam: BP 118/84 (BP Site: Left Arm, BP Position: Sitting, BP Cuff Size: Large Adult) Pulse 89 Temp 36.9 ?C (98.5 ?F) Wt 111.2 kg (245 lb 3.2 oz) SpO2 99% BMI 32.35 kg/m? GENERAL: NAD, alert and oriented SKIN: Unremarkable, no rash or skin lesions. HEAD: Normocephalic EYES: PERRLA, EOMI, conjunctiva clear EARS: External ears normal, canals clear, TM's normal. NOSE/SINUSES: Nares normal. Septum midline. OROPHARYNX: Lips, mucosa, and tongue normal, good dentition. No oral lesions noted. Post-nasal drainage observed. LUNGS: Clear to auscultation bilaterally, no wheezes/rhonchi/rales. HEART: Regular rate and rhythm, no murmurs. No ectopy. EXTREMITIES: Normal, no deformities, no skin discoloration, no edema. NEURO: Awake, alert and oriented x3, cranial nerves II-XII grossly intact, normal gait, no involuntary motions PSYCHIATRIC: pleasant, cooperative Assessment/Plan: 1. Acute non-recurrent pansinusitis (J01.40) 2. PND (post-nasal drip) (R09.82) 3. Body aches (R52) - Symptoms began Tuesday afternoon/evening (2 days ago): initial post-nasal drainage, now diffuse sinus pressure (frontal, periorbital), mild otalgia with ear popping, and cough likely secondary to post-nasal drip; no documented fever, but patient reports feeling febrile. - Exam: No pharyngeal exudate or erythema; no lower respiratory involvement on auscultation. - Discussed that etiology may be viral or bacterial; explained rationale for empiric antibiotic therapy given patient's desire for rapid improvement due to upcoming competition. - Start Z-Arslan as em (more content not included)... Normal [facility] Glucoseon 04-04-2025 Glucose [Mass/Vol] 94 mg/dL Normal 70-99 [facility] Comment on above: Performed By: #### L 500.4100, L501.0100 #### [facility] [address] [place], [address] Lipid Profileon 04-04-2025 CHOL:HDL 3.36 Normal [facility] Comment on above: Performed By: #### L 500.4100, L501.0100 #### [facility] [address] [place], [address] Cholesterol [Mass/Vol] 146 mg/dL Normal <=200 [facility] Comment on above: Result Comment: Chol esterol level, Desirable <200 mg/dL Borderline high cholesterol 200-239 mg/dL High cholesterol >=240 mg/dL Recommendations of the NCEP Adult Treatment Panel for the following risk-cutoff thresholds for the [place] population. Performed By: #### L 500.4100, L501.0100 #### [facility] [address] [place], [address] Cholesterol in HDL [Mass/Vol] 43 mg/dL Normal [facility] Comment on above: Result Comment: [place] onal Cholesterol Education Program (NCEP) guidelines: <40 mg/dL: Low HDL-cholesterol (major risk factor for CHD) >= 60 mg/dL: High HDL-cholesterol (negative risk factor for CHD) HDL-cholesterol is affected by a number of factors, e.g. smoking, exercise, hormones, sex and age. Performed By: #### L 500.4100, L501.0100 #### [facility] [address] [place], [address] Cholesterol in LDL [Mass/Vol] 83 mg/dL Normal [facility] Comment on above: Result Comment: Bord utqsqg=327-510 mg/dL Higher Leiw=716 mg/dL or greater Friedwald Equation for LDL-C Performed By: #### L 500.4100, L501.0100 #### [facility] [address] [place], [address] Cholesterol in VLDL [Mass/Vol] 20 mg/dL Normal 5-40 [facility] Comment on above: Performed By: #### L 500.4100, L501.0100 #### [facility] [address] [place], [address] Triglyceride [Mass/Vol] 99 mg/dL Normal [facility] Comment on above: Result Comment: The drugs N-Acetylcysteine and Metamizole may falsely depress this assay. Normal range: <150 mg/dL Borderline High: 150-199 mg/dL High: 200-499 mg/dL Very High: >500 mg/dL Performed By: #### L 500.4100, L501.0100 #### [facility] [address] [place], [address] CHOL Normal <=200 [facility] Comment on above: Result Comment: DUPL ICATE Performed By: #### L 500.4100 #### [facility] [address] [place], [address] CHOL:HDL Normal [facility] Comment on above: Result Comment: DUPL ICATE Performed By: #### L 500.4100 #### [facility] [address] [place], [address] CLDL Normal [facility] Comment on above: Result Comment: DUPL ICATE Performed By: #### L 500.4100 #### [facility] [address] [place], [address] HDL Normal [facility] Comment on above: Result Comment: DUPL ICATE Performed By: #### L 500.4100 #### [facility] [address] [place], [address] TRIG Normal [facility] Comment on above: Result Comment: DUPL ICATE Performed By: #### L 500.4100 #### [facility] [address] [place], [address] VLDL Normal 5-40 [facility] Comment on above: Result Comment: DUPL ICATE Performed By: #### L 500.4100 #### [facility] [address] [place], [address] ANES POSTPROC EVALon 025 ANES POSTPROC EVAL HNO ID: [id number] Author: SYLVIA SMITH MD Service: ? Author Type: Anesthesiologist Type: Anesthesia Postprocedure Evaluation Filed: 01/28/2025 15:59 Note Text: POST ANESTHESIA EVALUATION NOTE : 1985 Procedure Summary Date: 01/28/25 Room / Location: Gastroenterology Anesthesia Start: 1444 Anesthesia Stop: 1513 Procedure: EGD - THERAPEUTIC, EUS, OR TUBE INTERVENTIONS Diagnosis: Eosinophilic esophagitis (Dysphagia) Scheduled Providers: Kenisha Newby MD Responsible Provider: Sylvia Smith MD Anesthesia Type: MAC ASA Status: 3 Anesthesia Type: MAC Last Vitals Vitals Value Taken Time BP 120/72 01/28/25 1530 Temp 36.2 ?C (97.2 ?F) 01/28/25 1512 HR SpO2 76 01/28/25 1538 Resp 18 01/28/25 1530 SpO2 99 % 01/28/25 1538 Vitals shown include unfiled device data. Post Anesthesia Patient Status Patient Evaluation: PACU. PACU/ICU Patient Condition: stable. Anticipated Disposition: phase 2 then home. Neurological Status: aware and responsive. Pulmonary Status: breathing comfortably on room air Airway Control: returned to baseline unsupported. Cardiovascular Status: stable. Pain Management: clinically adequate Postoperative Hydration: acceptable. Intraoperative Events: no significant anesthesia events Post Operative Nausea/Vomiting Status: no significant post operative nausea or vomiting Recommendation: continue current plan of care. Anesthesia Observations No notable events were associated with this procedure. Documented by Sylvia Smith MD 01/28/2025 3:59 PM EDT SIGNATURE: Sylvia Smith MD PATIENT NAME: Carl Gross DATE: January 28, 2025 TIME: 3:59 PM CSN: [id number] Normal [facility] ANES PRE-OPon 01-28-2025 ANES PRE-OP HNO ID: [id number] Author: SYLVIA SMITH MD Service: ? 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 as calculated from the following: Height as of this encounter: 185.4 cm (6' 1). Weight as of this encounter: 109.8 kg (242 lb). Most recent hematocrit and potassium results: Hematocrit 49.5 12/07/2024 Potassium 3.8 12/07/2024 Relevant Problems CARDIO (+) Internal hemorrhoids GI (+) GERD without esophagitis PULMONARY (+) Asthma (HCC) Gastrointestinal (+) Eosinophilic esophagitis Other (+) Chronic gout of multiple sites (+) Obesity, Class I, BMI 30-34.9 I - PHYSICAL EVALUATION AIRWAY Patient intubated: No. Tracheostomy tube not present Mallampati: III. TM distance: >3 FB. Neck ROM: full ROM without neurological symptoms. Mouth opening: adequate. Short neck: no. Thick neck: no Gamez present: yes DENTAL Dental findings: missing tooth/teeth. Dentures, upper: partial. Additional exam findings: no II - ANESTHESIA PLAN ASA Score: 3 Anesthetic Plan: MAC The patient is not a current smoker. NPO Status: adequate Beta Yoselyn Monitoring Plan Monitoring plan: standard ASA. Post Procedure Analgesic Plan Postoperative analgesic plan: multimodal analgesia. Informed Consent Anesthetic risks, benefits, alternatives, personnel and consent discussed: yes. Patient / Responsible [employer] agrees to proceed: yes Patient / Surrogate agrees to blood products: Yes Potential Anesthesia issues that may suggest increased risk of complications or contraindication to planned procedure: none. Vitals Value Taken Time BP 168/95 01/28/25 1429 Pulse 88 01/28/25 1429 Resp 16 01/28/25 1429 Temp 36.5 ?C (97.7 ?F) 01/28/25 1429 SpO2 100 % 01/28/25 1429 Outpatient Medications as of 01/28/2025 Medication Sig traZODone (DESYREL) 100 mg tablet TAKE 1 TO 2 TABLETS BY MOUTH ONCE DAILY AT BEDTIME celecoxib (CELEBREX) 100 mg capsule Take 1 capsule by mouth two times a day. As needed for joint pain, take with food sertraline (ZOLOFT) 100 mg tablet Take 1 tablet by mouth once daily. furosemide (LASIX) 20 mg tablet Take 1 tablet by mouth once daily as needed (leg edema). As needed for leg edema allopurinol (ZYLOPRIM) 100 mg tablet Take 1 tablet by mouth once daily. For gout. dupilumab (DUPIXENT PEN) 300 mg/2 mL pen injection Inject 300 mg subcutaneously one time a week. For eosinophilic esophagitis; ICD10 = K20.0 EPINEPHrine (EPIPEN) 0.3 mg/0.3 mL auto-injector Inject at onset of bee venom sting omeprazole (PRILOSEC) 40 mg capsule Take 1 capsule by mouth two times a day. Take 30 min before breakfast and dinner albuterol HFA (PROAIR HFA) 90 mcg/actuation inhaler Inhale 2 Puffs as instructed every 4 hours as needed. cyclobenzaprine (FLEXERIL) 10 mg tablet Take 1 tablet by mouth three times a day as needed for muscle spasm. fluticasone (FLONASE) 50 mcg/actuation nasal spray Use 1 [place] in each nostril daily at bedtime. montelukast (SINGULAIR) 10 mg tablet Take 1 tablet by mouth daily at bedtime. amino acids (BCAA ORAL) Take by mouth once daily. cetirizine (ZYRTEC) 10 mg tablet Take 10 mg by mouth once daily. No current facility-administered medications on file as of 01/28/2025. I have interviewed and examined the patient. I have reviewed the medical record and/or the pre-anesthesia evaluation, pertinent labs, and test results. This contains updated information obtained within 48 hours of Surgery/Procedure. SIGNATURE: Sylvia Smith MD PATIENT NAME: Carl Gross DATE: January 28, 2025 TIME: 2:42 PM CSN: [id number] Normal [facility] EGD Study observation Narrat iveon 01-28-2025 [facility] Radiology Study observation (narrative) [facility] HISTORY PHYSICALon HISTORY PHYSICAL HNO ID: [id number] Author: TOM RUDD MD Service: Gastroenterology Author Type: Physician Type: H&P Filed: 01/28/2025 14:08 Note Text: PROCEDURAL SEDATION HISTORY AND PHYSICAL EXAM SERVICE DATE: 01/28/2025 SERVICE TIME: 1408 Subjective HPI: This is a 39 year old male who presents with eosinophilic esophagitis, dysphagia PAST ANESTHESIA HISTORY:No history of adverse event PAST MEDICAL HISTORY Diagnosis Date Acute right-sided back pain with sciatica Arthritis Asthma (HCC) Awareness under anesthesia Dysthymia 02/03/2022 Eosinophilic esophagitis THA (generalized anxiety disorder) Generalized anxiety disorder Obstructive sleep apnea Palpitations Seasonal allergies Well adult exam PAST SURGICAL HISTORY Procedure Laterality Date ABDOMINAL SURGERY HX APPENDECTOMY HX 2020 COLONOSCOPY 01/21/2021 EGD 10/22/2020 Active esophagitis with increased intraepithelial eosinophils,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 EGD 01/21/2021 PAST SURGICAL HISTORY OF 02/2012 left foot surgery PAST SURGICAL HISTORY OF 2009 repair tendon right hand PAST SURGICAL HISTORY OF 05/2018 Throat PAST SURGICAL HISTORY OF Right 12/05/2023 arthroscopic knee- meniscus repair SINUS SURGERY HX 2015 Prior to Admission medications as of 12/07/24 1403 Medication Sig Last Dose Taking traZODone (DESYREL) 100 mg tablet TAKE 1 TO 2 TABLETS BY MOUTH ONCE DAILY AT BEDTIME celecoxib (CELEBREX) 100 mg capsule Take 1 capsule by mouth two times a day. As needed for joint pain, take with food sertraline (ZOLOFT) 100 mg tablet Take 1 tablet by mouth once daily. furosemide (LASIX) 20 mg tablet Take 1 tablet by mouth once daily as needed (leg edema). As needed for leg edema allopurinol (ZYLOPRIM) 100 mg tablet Take 1 tablet by mouth once daily. For gout. dupilumab (DUPIXENT PEN) 300 mg/2 mL pen injection Inject 300 mg subcutaneously one time a week. For eosinophilic esophagitis; ICD10 = K20.0 EPINEPHrine (EPIPEN) 0.3 mg/0.3 mL auto-injector Inject at onset of bee venom sting omeprazole (PRILOSEC) 40 mg capsule Take 1 capsule by mouth two times a day. Take 30 min before breakfast and dinner albuterol HFA (PROAIR HFA) 90 mcg/actuation inhaler Inhale 2 Puffs as instructed every 4 hours as needed. cyclobenzaprine (FLEXERIL) 10 mg tablet Take 1 tablet by mouth three times a day as needed for muscle spasm. fluticasone (FLONASE) 50 mcg/actuation nasal spray Use 1 [place] in each nostril daily at bedtime. montelukast (SINGULAIR) 10 mg tablet Take 1 tablet by mouth daily at bedtime. amino acids (BCAA ORAL) Take by mouth once daily. cetirizine (ZYRTEC) 10 mg tablet Take 10 mg by mouth once daily. ALLERGIES Allergen Reactions Bee Sting Swelling Local swelling and shortness of breath Dermabond [2-Octyl * Rash CARDIOVASCULAR:No chest pain, leg swelling and palpitations PULMONARY:No cough,wheezing and shortness of breath Objective PHYSICAL EXAM:The remainder of the physical exam is noncontributory AIRWAY: Mouth opening greater than 3 fingerbreadths: Yes Neck Full Range of Motion: Yes LUNGS: Good diaphragmatic excursion CARDIAC: Regular rhythm,Regular rate Assessment/Plan ASA Class: 2 Patient OK for Sedation: Yes Sedation Goal: Anesthesia Provisional Diagnosis/Treatment Plan: eosinophilic esophagitis, dysphagia/ EGD with dilation Sedation Goal: Anesthesia SIGNATURE: Tom Rudd MD PATIENT NAME: Carl Gross DATE: January 28, 2025 TIME: 2:08 PM Created 2023 [facility] NURSING PROGon 01-28-2025 NURSING PROG HNO ID: [id number] Author: CARRILLO DELGADO RN Service: Gastroenterology Author Type: Registered Nurse Type: Nursing Progress Note Filed: 01/28/2025 15:32 Note Text: AMBULATORY PATIENT EDUCATION NOTE TOPIC: GI PROCEDURES: Esophagogastroduodenoscopy(E GD) with or without biopies based on clinical findings, removal of polyps or lesions READINESS TO LEARN INSTRUCTION PROVIDED TO: Patient and family member COGNITIVE ABILITY: Alert and oriented PTED MOTIVATION TO LEARN: Interested FAMILY SUPPORT: High - Very involved in pt care IPATIENT LEARNS BEST BY: Individual Instruction Written Instruction - Hand-outs Verbal Instruction FACTORS AFFECTING LEARNING: None PHYSICAL LIMITATIONS AFFECTING LEARNING: None LEARNING RESPONSE METHOD OF INSTRUCTION: Individual instruction PATIENT / FAMILY RESPONSE: Verbalizes understanding of: WORSENING CONDITION-Signs and symptoms of a worsening condition that warrant a call to the physician FOLLOW-UP PLAN: Patient instructed to call with any further issues SUPPLEMENTAL MATERIAL: Procedure Discharge Instructions REFERRAL (RECOMMENDATION): None Electronically Signed By: Carrillo Delgado RN Normal [facility] NURSING PROG HNO ID: [id number] Author: YANET BUCHANAN, RN Service: ? Author Type: Registered Nurse Type: Nursing Progress Note Filed: 01/28/2025 14:25 Note Text: PRE OP LEARNING ASSESSMENT PROCEDURE/SURGERY: GI PROCEDURES: EGD READINESS TO LEARN COGNITIVE ABILITY: Alert and oriented MOTIVATION TO LEARN: Eager Interested FAMILY SUPPORT: High - Very involved in pt care PATIENT LEARNS BEST BY: Individual Instruction Verbal Instruction FACTORS AFFECTING LEARNING: None PHYSICAL LIMITATIONS AFFECTING LEARNING: None Electronically Signed By: Yanet Buchanan, RN In Department: GASTROENTEROLOGY Normal [facility] 01-08-2025 CNPN Telephone (FAMPWS) CARL GROSS ([id number]) 1985 Date Time Provider Department 01/08/25 [facility] During your visit today, we recorded the following information about you: Magnolia Arreguin MA 01/08/2025 2:43 PM Signed Please see pt message --- Looks like [facility] does the test. It?s called a De [place] Fuente Reflux Capsule test which they attach a sensor to the lower esophagus then will transmit info to a reader. It involves a endoscopy to put in. Simba Horton DO 01/08/2025 4:38 PM Signed I am unsure who does this procedure at [facility]. Unsure if Gastro DrYung Friend or Gen surgeon Please call [facility] to clarify DO Suzy Novoa Jazzmin, MA 01/09/2025 10:39 AM Signed Attempted to contact [facility] gastro with no answer. Will try again. PAM Rodrigues Jazzmin, MA 01/14/2025 3:57 PM Signed Yes [facility] does De La Fuente capsule test. PAM Rodrigues Susan LPN 01/16/2025 3:09 PM Signed Carl Gross [facility] My Chart Rx Pool Should I call or do I need a referral?? I think we should try celebrix. I?m not noticing any difference with meloxicam. Magnolia Arreguin MA 01/17/2025 3:30 PM Signed Hi. I had sent Dr. Horton a message about a test that needs done at the [facility] but not sure if I need to call or if a referral is needed. The meloxicam isn?t working and she mentioned celebrix. Simba Horton DO 01/18/2025 12:20 PM Signed I can't do the De La Fuente testing. He would have to see a provider such as a gastro or gen surgeon through [facility] to have it ordered Okay to switch the meloxicam to celebrex as below to help pain The following approved medication requests have been transmitted electronically. Requested Prescriptions Signed Prescriptions Disp Refills celecoxib (CELEBREX) 100 mg capsule 60 capsule 3 Sig: Take 1 capsule by mouth two times a day. As needed for joint pain, take with food Authorizing Provider: SIMBA HORTON DO Detwiler-Green, Susan LPN 01/18/2025 12:29 PM Signed Pt. informed via My Chart. Allergies As of Date: 01/08/2025 Noted Allergy Reaction BEE STING 09/22/2012 7 - Swelling Comments: Local swelling and shortness of breath DERMABOND (2-OCTYL CYANOACRYLATE) 12/01/2020 2 - Rash Date Reviewed: 12/07/2024 Reviewed by: Rosangela Loyd MA - Fully Assessed Order(s):celecoxib (CELEBREX) 100 mg capsuleTake 1 capsule by mouth two times a day. As needed for joint pain, take with foodDisp: 60 capsuleRfl: 3 Prescriptions as of 01/18/2025 - celecoxib (CELEBREX) 100 mg capsule Take 1 capsule by mouth two times a day. As needed for joint pain, take with food - sertraline (ZOLOFT) 100 mg tablet Take 1 tablet by mouth once daily. - furosemide (LASIX) 20 mg tablet Take 1 tablet by mouth once daily as needed (leg edema). As needed for leg edema - traZODone (DESYREL) 100 mg tablet Take 1-2 tablets by mouth daily at bedtime. - allopurinol (ZYLOPRIM) 100 mg tablet Take 1 tablet by mouth once daily. For gout. - dupilumab (DUPIXENT PEN) 300 mg/2 mL pen injection Inject 300 mg subcutaneously one time a week. For eosinophilic esophagitis; ICD10 = K20.0 - EPINEPHrine (EPIPEN) 0.3 mg/0.3 mL auto-injector Inject at onset of bee venom sting - omeprazole (PRILOSEC) 40 mg capsule Take 1 capsule by mouth two times a day. Take 30 min before breakfast and dinner - albuterol HFA (PROAIR HFA) 90 mcg/actuation inhaler Inhale 2 Puffs as instructed every 4 hours as needed. - cyclobenzaprine (FLEXERIL) 10 mg tablet Take 1 tablet by mouth three times a day as needed for muscle spasm. - fluticasone (FLONASE) 50 mcg/actuation nasal spray Use 1 [place] in each nostril daily at bedtime. - montelukast (SINGULAIR) 10 mg tablet Take 1 tablet by mouth daily at bedtime. - amino acids (BCAA ORAL) Take by mouth once daily. - cetirizine (ZYRTEC) 10 mg tablet Take 10 mg by mouth once daily. Medication notes this encounter MELOXICAM 15 MG TABLET >> Simba Horton DO 01/18/2025 12:19 PM not effective Problem List As Of Date 01/08/2025 Noted Resolved Palpitations [R00.2] Well adult exam [Z00.00] Seasonal allergies [J30.2] Food impaction of esophagus [T18.128A, W44.F3XA]05/20/2018 Obesity, Class I, BMI 30-34.9 [E66.811] 05/20/2018 Idiopathic gout involving toe [M10.079] 08/13/2019 Wheezes [R06.2] 08/13/2019 RUQ pain [R10.11] 11/19/2020 11/19/2020 Acute esophagitis [K20.90] 01/21/2021 01/21/2021 Esophageal dysphagia [R13.19] 05/25/2021 Eosinophilic esophagitis [K20.0] 05/25/2021 Abdominal pain [R10.9] 05/25/2021 Dysthymia [F34.1] 02/03/2022 THA (generalized anxiety disorder) [F41.1] 02/03/2022 Allergic rhinitis due to allergen [J30.9] 02/03/2022 Acute pain of right shoulder [M25.511] 02/03/2022 Acute right-sided low back pain with (more content not included)... Normal [facility] CNOVon 01-07-2025 CNOV Office Visit (FAMPWS ) CARL GROSS ([id number]) 1985 M Date Time Provider Department 01/07/25 3:00 PM [facility] During your visit today, we recorded the following information about you: Temperature Pulse Respiration Blood pressure 97.1 degrees 64/minute 20/minute 130/80 Weight 115.7 kg Simba Horton DO 01/10/2025 12:54 PM Signed CC: Carl Gross is a 39 year old male who presents to the office for follow up HPI: Previously at OFFICE VISIT 07/25/2024 as below Previously he was struggling with falling asleep and staying asleep. Thinks it may be pain related - has been struggling to sleep since he had his first knee surgery in November. Has been trying over the counter medication- melatonin and magnesium and benadryl. He was started on trazodone and has been taking this intermittently with benefit Willing to have fasting labs drawn THA, stable, taking sertraline and prn alprazolam. Does admit to increased depression symptoms though- he was recently let go from his job and trying to find another job. He is home more so eating a poor diet now at times Right knee recent surgery with meniscectomy and cartilage repair. He is walking better with less limping, using crutches and having some post operative expected pain. No fevers or chills. No falls. 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 Will be likely having left foot surgery to fuse 1st MTP by Dr. Kimbrough [employer] in [place] Intermittent bloating, + stools are falling apart and loose, the stools are greasy and floating, hx of eosinophilic esophagitis. Currently He had a few episodes of blood in stool. He had recent diagnostic colonoscopy by Dr. Hendrickson on 11/19 which showed Non-bleeding internal hemorrhoids were found during retroflexion. The hemorrhoids were Grade II (internal hemorrhoids that prolapse but reduce spontaneously). Eosinophilic esophagitis, he is trying to eat a good diet. He is supposed to have additional upcoming EGD and manometry testing with Dr. Hendrickson- he is wondering if he can do this in [place] instead due to how far away this is. Intermittent knee pain, following up with ORthopedics, improved with intermittent use of prednisone. Asking for other option Occasional leg edema, mostly when legs are down Mood, doing well overall. Taking sertraline. Enjoying his new job better PAST MEDICAL HISTORY Diagnosis Date Acute right-sided back pain with sciatica Arthritis Asthma (HCC) Awareness under anesthesia Dysthymia 02/03/2022 Eosinophilic esophagitis THA (generalized anxiety disorder) Generalized anxiety disorder Obstructive sleep apnea Palpitations Seasonal allergies Well adult exam PAST SURGICAL HISTORY Procedure Laterality Date ABDOMINAL SURGERY HX APPENDECTOMY HX 2020 COLONOSCOPY 01/21/2021 EGD 10/22/2020 Active esophagitis with increased intraepithelial eosinophils,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 EGD 01/21/2021 PAST SURGICAL HISTORY OF 02/2012 left foot surgery PAST SURGICAL HISTORY OF 2009 repair tendon right hand PAST SURGICAL HISTORY OF 05/2018 Throat PAST SURGICAL HISTORY OF Right 12/05/2023 arthroscopic knee- meniscus repair SINUS SURGERY HX 2015 Current Outpatient Medications Medication Sig sertraline (ZOLOFT) 100 mg tablet Take 1 tablet by mouth once daily. meloxicam (MOBIC) 15 mg tablet Take 1 tablet by mouth once daily. As needed for knee pain and swelling predniSONE (DELTASONE) 10 mg tablet Take 4 tabs daily for 3 days, then 2 tabs daily for 3 days, then 1 tab daily for 3 days with food. furosemide (LASIX) 20 mg tablet Take 1 tablet by mouth once daily as needed (leg edema). As needed for leg edema traZODone (DESYREL) 100 mg tablet Take 1-2 tablets by mouth daily at bedtime. allopurinol (ZYLOPRIM) 100 mg tablet Take 1 tablet by mouth once daily. For gout. dupilumab (DUPIXENT PEN) 300 mg/2 mL pen injection Inject 300 mg subcutaneously one time a week. For eosinophilic esophagitis; ICD10 = K20.0 EPINEPHrine (EPIPEN) 0.3 mg/0.3 mL auto-injector Inject at onset of bee venom sting omeprazole (PRILOSEC) 40 mg capsule Take 1 capsule by mouth two times a day. Take 30 min before breakfast and dinner albuterol HFA (PROAIR HFA) 90 mcg/actuation inhaler Inhale 2 Puffs as instructed every 4 hours as needed. cyclobenzaprine (FLEXERIL) 10 mg tablet Take 1 tablet by mouth three times a day as needed for muscle spasm. fluticasone (FLONASE) 50 mcg/actuation nasal spray Use 1 [place] in each nostril daily at bedtime. montelukast (SINGULAIR) 10 mg tablet Take 1 tablet by mouth daily at bedtime. amino acids (BCAA ORAL) Take by rosalio (more content not included)... Normal [facility] 12-21-2024 [facility] Telephone [facility] CARL GROSS ([id number]) 1985 M Date Time Provider Department 12/21/24 SIMBA HORTON [facility] During your visit today, we recorded the following information about you: Rosangela Loyd MA 12/21/2024 4:11 PM Signed Pt sends [employer] message below: [facility] The naproxen is not working for my knee swelling AND pain. I was wondering if I could get on a prednisone dose to get this flare up under control. Simba Horton DO 12/21/2024 5:01 PM Signed Yes, ok to start on rx below Simba Horton DO The following approved medication requests have been transmitted electronically. Requested Prescriptions Signed Prescriptions Disp Refills predniSONE (DELTASONE) 10 mg tablet 21 tablet 0 Sig: Take 4 tabs daily for 3 days, then 2 tabs daily for 3 days, then 1 tab daily for 3 days with food. Authorizing Provider: SIMBA HORTON DO Detwiler-Green, Susan LPN 12/21/2024 5:05 PM Signed Pt. informed via my chart Allergies As of Date: 12/21/2024 Noted Allergy Reaction BEE STING 09/22/2012 7 - Swelling Comments: Local swelling and shortness of breath DERMABOND (2-OCTYL CYANOACRYLATE) 12/01/2020 2 - Rash Date Reviewed: 12/07/2024 Reviewed by: Rosangela Loyd MA - Fully Assessed Reason for Visit: Medication Problem [65] Order(s):predniSONE (DELTASONE) 10 mg tabletTake 4 tabs daily for 3 days, then 2 tabs daily for 3 days, then 1 tab daily for 3 days with food.Disp: 21 tabletRfl: 0 Prescriptions as of 12/21/2024 - predniSONE (DELTASONE) 10 mg tablet Take 4 tabs daily for 3 days, then 2 tabs daily for 3 days, then 1 tab daily for 3 days with food. - ALPRAZolam (XANAX) 0.25 mg tablet Take 1 tablet by mouth as needed for up to 30 days. - peg 3350-Electrolytes (GOLYTELY) 236-22.74-6.74 -5.86 gram suspension Take 4 L by mouth one time only. - traZODone (DESYREL) 100 mg tablet Take 1-2 tablets by mouth daily at bedtime. - allopurinol (ZYLOPRIM) 100 mg tablet Take 1 tablet by mouth once daily. For gout. - dupilumab (DUPIXENT PEN) 300 mg/2 mL pen injection Inject 300 mg subcutaneously one time a week. For eosinophilic esophagitis; ICD10 = K20.0 - sertraline (ZOLOFT) 100 mg tablet Take 1 tablet by mouth once daily. - EPINEPHrine (EPIPEN) 0.3 mg/0.3 mL auto-injector Inject at onset of bee venom sting - omeprazole (PRILOSEC) 40 mg capsule Take 1 capsule by mouth two times a day. Take 30 min before breakfast and dinner - Naproxen Sodium 550 mg tablet Take 550 mg by mouth two times a day with meals. - aspirin, enteric coated (ASPIRIN, ENTERIC COATED) 81 mg EC tablet Take 81 mg by mouth once daily. - albuterol HFA (PROAIR HFA) 90 mcg/actuation inhaler Inhale 2 Puffs as instructed every 4 hours as needed. - naproxen (NAPROSYN) 500 mg tablet Take 1 tablet by mouth three times a day with meals. Take with food. - cyclobenzaprine (FLEXERIL) 10 mg tablet Take 1 tablet by mouth three times a day as needed for muscle spasm. - oxyCODONE-acetaminophen (PERCOCET) 5-325 mg tablet - fluticasone (FLONASE) 50 mcg/actuation nasal spray Use 1 [place] in each nostril daily at bedtime. - montelukast (SINGULAIR) 10 mg tablet Take 1 tablet by mouth daily at bedtime. - amino acids (BCAA ORAL) Take by mouth once daily. - cetirizine (ZYRTEC) 10 mg tablet Take 10 mg by mouth once daily. Problem List As Of Date 12/21/2024 Noted Resolved Palpitations [R00.2] Well adult exam [Z00.00] Seasonal allergies [J30.2] Food impaction of esophagus [T18.128A, W44.F3XA]05/20/2018 Obesity, Class I, BMI 30-34.9 [E66.811] 05/20/2018 Idiopathic gout involving toe [M10.079] 08/13/2019 Wheezes [R06.2] 08/13/2019 RUQ pain [R10.11] 11/19/2020 11/19/2020 Acute esophagitis [K20.90] 01/21/2021 01/21/2021 Esophageal dysphagia [R13.19] 05/25/2021 Eosinophilic esophagitis [K20.0] 05/25/2021 Abdominal pain [R10.9] 05/25/2021 Dysthymia [F34.1] 02/03/2022 THA (generalized anxiety disorder) [F41.1] 02/03/2022 Allergic rhinitis due to allergen [J30.9] 02/03/2022 Acute pain of right shoulder [M25.511] 02/03/2022 Acute right-sided low back pain with right-side*02/03/2022 GERD without esophagitis [K21.9] 02/03/2022 Bunion of great toe of left foot [M21.612] 04/26/2023 Chronic pain of both shoulders [M25.511, G89.29*04/26/2023 Chronic gout of multiple sites [M1A.09X0] 04/26/2023 Acute esophagitis [K20.90] 04/26/2023 Asthma [J45.909] Bloating [R14.0] 05/01/2024 Situational insomnia [F51.09] 05/01/2024 Situational anxiety [F41.8] 07/25/2024 Loose stools [R19.5] 07/25/2024 Situational depression [F43.21] 07/25/2024 Prescriptions ordered this encounter Disp Refills Start End PREDNISONE 10 MG TABLET 21 t* 0 12/21/2024 12/21/2024 Sig: Take 4 tabs daily for 3 days, then 2 tabs daily for 3 days, then 1 ta (more content not included)... [facility] ([id number]) 1985 M Date Time Provider Department 12/10/24 SIMBA HORTON [facility] During your visit today, we recorded the following information about you: Rosangela Loyd MA 12/10/2024 6:42 PM Signed Pt sends mychart message regarding his recent labs. Sebas Lawrence reviewed these results but would like provider to review. Carl Gross [facility] My Chart Rx Pool I?m a little concerned about some of my recent lab results. What do you think, nothing to worry about? I didn?t have any of these issues with my past 2 knee surgeries so I am concerned as to why I?m having issues this time?? Thanks Tuan Rivera APRN.EMERY GRINDER 12/14/2024 2:35 PM Signed Overall his labs look good. Slightly elevated WBC count but this was likely d/t the fact that he was sick/had an infection when this was drawn. We can redraw again in a month. No concerns. Tuan Puentes APRN.Magnolia Martinez MA 12/14/2024 2:53 PM Signed Pt informed via message Magnolia Arreguin MA Allergies As of Date: 12/10/2024 Noted Allergy Reaction BEE STING 09/22/2012 7 - Swelling Comments: Local swelling and shortness of breath DERMABOND (2-OCTYL CYANOACRYLATE) 12/01/2020 2 - Rash Date Reviewed: 12/07/2024 Reviewed by: Rosangela Loyd MA - Fully Assessed Reason for Visit: question regarding lab results [Other] Primary Visit Diagnosis:Leukocytosis, unspecified type [D72.829] Order(s):COMPLETE BLOOD COUNT AND DIFFERENTIAL [SQCBCDIF] Order #: [id number] FUTURE Prescriptions as of 12/14/2024 - ALPRAZolam (XANAX) 0.25 mg tablet Take 1 tablet by mouth as needed for up to 30 days. - peg 3350-Electrolytes (GOLYTELY) 236-22.74-6.74 -5.86 gram suspension Take 4 L by mouth one time only. - traZODone (DESYREL) 100 mg tablet Take 1-2 tablets by mouth daily at bedtime. - allopurinol (ZYLOPRIM) 100 mg tablet Take 1 tablet by mouth once daily. For gout. - dupilumab (DUPIXENT PEN) 300 mg/2 mL pen injection Inject 300 mg subcutaneously one time a week. For eosinophilic esophagitis; ICD10 = K20.0 - sertraline (ZOLOFT) 100 mg tablet Take 1 tablet by mouth once daily. - EPINEPHrine (EPIPEN) 0.3 mg/0.3 mL auto-injector Inject at onset of bee venom sting - omeprazole (PRILOSEC) 40 mg capsule Take 1 capsule by mouth two times a day. Take 30 min before breakfast and dinner - Naproxen Sodium 550 mg tablet Take 550 mg by mouth two times a day with meals. - aspirin, enteric coated (ASPIRIN, ENTERIC COATED) 81 mg EC tablet Take 81 mg by mouth once daily. - albuterol HFA (PROAIR HFA) 90 mcg/actuation inhaler Inhale 2 Puffs as instructed every 4 hours as needed. - naproxen (NAPROSYN) 500 mg tablet Take 1 tablet by mouth three times a day with meals. Take with food. - cyclobenzaprine (FLEXERIL) 10 mg tablet Take 1 tablet by mouth three times a day as needed for muscle spasm. - oxyCODONE-acetaminophen (PERCOCET) 5-325 mg tablet - fluticasone (FLONASE) 50 mcg/actuation nasal spray Use 1 [place] in each nostril daily at bedtime. - montelukast (SINGULAIR) 10 mg tablet Take 1 tablet by mouth daily at bedtime. - amino acids (BCAA ORAL) Take by mouth once daily. - cetirizine (ZYRTEC) 10 mg tablet Take 10 mg by mouth once daily. Problem List As Of Date 12/10/2024 Noted Resolved Palpitations [R00.2] Well adult exam [Z00.00] Seasonal allergies [J30.2] Food impaction of esophagus [T18.128A, W44.F3XA]05/20/2018 Obesity, Class I, BMI 30-34.9 [E66.811] 05/20/2018 Idiopathic gout involving toe [M10.079] 08/13/2019 Wheezes [R06.2] 08/13/2019 RUQ pain [R10.11] 11/19/2020 11/19/2020 Acute esophagitis [K20.90] 01/21/2021 01/21/2021 Esophageal dysphagia [R13.19] 05/25/2021 Eosinophilic esophagitis [K20.0] 05/25/2021 Abdominal pain [R10.9] 05/25/2021 Dysthymia [F34.1] 02/03/2022 THA (generalized anxiety disorder) [F41.1] 02/03/2022 Allergic rhinitis due to allergen [J30.9] 02/03/2022 Acute pain of right shoulder [M25.511] 02/03/2022 Acute right-sided low back pain with right-side*02/03/2022 GERD without esophagitis [K21.9] 02/03/2022 Bunion of great toe of left foot [M21.612] 04/26/2023 Chronic pain of both shoulders [M25.511, G89.29*04/26/2023 Chronic gout of multiple sites [M1A.09X0] 04/26/2023 Acute esophagitis [K20.90] 04/26/2023 Asthma [J45.909] Bloating [R14.0] 05/01/2024 Situational insomnia [F51.09] 05/01/2024 Situational anxiety [F41.8] 07/25/2024 Loose stools [R19.5] 07/25/2024 Situational depression [F43.21] 07/25/2024 Encounter Status:Closed by MAGNOLIA ARREGUIN on 12/14/24 Normal [facility] CBC W Auto Differential pane l (Bld)on 12-07-2024 Basophils (Bld) [#/Vol] 0.05 10*3/uL Normal <0.11 [facility] Comment on above: Order Comment: Speci men Type: BLOOD SPECIMENOrdering Facility: [facility] Address: [address] [place] [address] Performed By: #### 5 7021-8 ####[facility] LABCLIA [id number] [place] [address] [place] Basophils/100 WBC (Bld) 0.4 % Normal [facility] Comment on above: Order Comment: Speci men Type: BLOOD SPECIMENOrdering Facility: [facility] Address: [address] [place] [address] Performed By: #### 5 7021-8 ####[facility] LABCLIA [id number] [address], [place] [address] [place] Differential cell count method Nom (Bld) Auto Normal [facility] Comment on above: Order Comment: Speci men Type: BLOOD SPECIMENOrdering Facility: [facility] Address: [address] [place] [address] Performed By: #### 5 7021-8 ####[facility] LABCLIA [id number] [address], [place] [address] [place] Eosinophils (Bld) [#/Vol] 0.12 10*3/uL Normal <0.46 [facility] Comment on above: Order Comment: Speci men Type: BLOOD SPECIMENOrdering Facility: [facility] Address: [address] [place] [address] Performed By: #### 5 7021-8 ####[facility] LABCLIA [id number] [address], [place] [address] [place] Eosinophils/100 WBC (Bld) 1.0 % Normal [facility] Comment on above: Order Comment: Speci men Type: BLOOD SPECIMENOrdering Facility: [facility] Address: [address] [place] [address] Performed By: #### 5 7021-8 ####[facility] LABCLIA [id number] [place] [address] [place] Erythrocyte distribution width (RBC) [Ratio] 11.9 % Normal 11.5-15.0 [facility] Comment on above: Order Comment: Speci men Type: BLOOD SPECIMENOrdering Facility: [facility] Address: [address] [place] [address] Performed By: #### 5 7021-8 ####[facility] LABCLIA [id number] [address], [facility] [place] Hematocrit (Bld) [Volume fraction] 49.5 % Normal 39.0-51.0 [facility] Comment on above: Order Comment: Speci men Type: BLOOD SPECIMENOrdering Facility: [facility] Address: [address] [place] [address] Performed By: #### 5 7021-8 ####[facility] LABCLIA [id number] [address] [address] [place] Hemoglobin (Bld) [Mass/Vol] 16.1 g/dL Normal 13.0-17.0 [facility] Comment on above: Order Comment: Speci men Type: BLOOD SPECIMENOrdering Facility: [facility] Address: [address] [place] [address] Performed By: #### 5 7021-8 ####[facility] LABCLIA [id number] [place] [address] [place] Immature granulocytes (Bld) [#/Vol] 0.06 10*3/uL Normal <0.10 [facility] Comment on above: Order Comment: Speci men Type: BLOOD SPECIMENOrdering Facility: [facility] Address: [address] [place] [address] Performed By: #### 5 7021-8 ####[facility] LABCLIA [id number] [place] [address] [place] Immature granulocytes/100 WBC (Bld) 0.5 % Normal [facility] Comment on above: Order Comment: Speci men Type: BLOOD SPECIMENOrdering Facility: [facility] Address: [address] [place] [address] Performed By: #### 5 7021-8 ####[facility] LABCLIA [id number] [place] [address] [place] Lymphocytes (Bld) [#/Vol] 2.37 10*3/uL Normal 1.00-4.00 [facility] Comment on above: Order Comment: Speci men Type: BLOOD SPECIMENOrdering Facility: [facility] Address: [address] [place] [address] Performed By: #### 5 7021-8 ####[facility] LABCLIA [id number] [place] [address] [place] Lymphocytes/100 WBC (Bld) 19.0 % Normal [facility] Comment on above: Order Comment: Speci men Type: BLOOD SPECIMENOrdering Facility: [facility] Address: [address] [place] [address] Performed By: #### 5 7021-8 ####[facility] LABIA [id number] [place] [address] [place] MCH (RBC) [Entitic mass] 28.8 pg Normal 26.0-34.0 [facility] Comment on above: Order Comment: Speci men Type: BLOOD SPECIMENOrdering Facility: [facility] Address: [address] [place] [address] Performed By: #### 5 7021-8 ####[facility] LABIA [id number] [place] [address] [place] MCHC (RBC) [Mass/Vol] 32.5 g/dL Normal 30.5-36.0 [facility] Comment on above: Order Comment: Speci men Type: BLOOD SPECIMENOrdering Facility: [facility] Address: [address] [place] [address] Performed By: #### 5 7021-8 ####[facility] LABIA [id number] [place] [address] [place] MCV (RBC) [Entitic vol] 88.4 fL Normal 80.0-100.0 [facility] Comment on above: Order Comment: Speci men Type: BLOOD SPECIMENOrdering Facility: [facility] Address: [address] [place] [address] Performed By: #### 5 7021-8 ####[facility] LABIA [id number] [place] [id number] [address] [place] Monocytes (Bld) [#/Vol] 0.98 10*3/uL High <0.87 [facility] Comment on above: Order Comment: Speci men Type: BLOOD SPECIMENOrdering Facility: [facility] Address: [address] [place] [address] Performed By: #### 5 7021-8 ####[facility] LABCLIA [id number] [facility] [address] [place] Monocytes/100 WBC (Bld) 7.9 % Normal [facility] Comment on above: Order Comment: Speci men Type: BLOOD SPECIMENOrdering Facility: [facility] Address: [address] [place] [address] Performed By: #### 5 7021-8 ####[facility] LABCLIA [id number] [place] [address] [place] Neutrophils (Bld) [#/Vol] 8.87 10*3/uL High 1.45-7.50 [facility] Comment on above: Order Comment: Speci men Type: BLOOD SPECIMENOrdering Facility: [facility] Address: [address] [place] [address] Performed By: #### 5 7021-8 ####[facility] LABCLIA [id number] [place] [address] [place] Neutrophils/100 WBC (Bld) 71.2 % Normal [facility] Comment on above: Order Comment: Speci men Type: BLOOD SPECIMENOrdering Facility: [facility] Address: [address] [place] [address] Performed By: #### 5 7021-8 ####[facility] LABCLIA [id number] [place] [address] [place] Nucleated RBC (Bld) [#/Vol] 10*3/uL Normal <0.01 [facility] Comment on above: Order Comment: Speci men Type: BLOOD SPECIMENOrdering Facility: [facility] Address: [address] [place] [address] Performed By: #### 5 7021-8 ####[facility] LABCLIA [id number] [place] [address] [place] Nucleated RBC/100 WBC (Bld) [Ratio] 0.0 /100 WBC Normal [facility] Comment on above: Order Comment: Speci men Type: BLOOD SPECIMENOrdering Facility: [facility] Address: [address] [place] [address] Performed By: #### 5 7021-8 ####[facility] LABCLIA [id number] [address], [place] [address] [place] Platelet mean volume (Bld) [Entitic vol] 10.4 fL Normal 9.0-12.7 [facility] Comment on above: Order Comment: Speci men Type: BLOOD SPECIMENOrdering Facility: [facility] Address: [address] [place] [address] Performed By: #### 5 7021-8 ####[facility] LABCLIA [id number] [place] [address] [place] Platelets (Bld) [#/Vol] 356 10*3/uL Normal 150-400 [facility] Comment on above: Order Comment: Speci men Type: BLOOD SPECIMENOrdering Facility: [facility] Address: [address] [place] [address] Performed By: #### 5 7021-8 ####[facility] LABCLIA [id number] [address] [place] [address] [place] RBC (Bld) [#/Vol] 5.60 10*6/uL Normal 4.20-6.00 [facility] Comment on above: Order Comment: Speci men Type: BLOOD SPECIMENOrdering Facility: [facility] Address: [address] [place] [address] Performed By: #### 5 7021-8 ####[facility] LABCLIA [id number] [place] [address] [place] WBC (Bld) [#/Vol] 12.45 10*3/uL High 3.70-11.00 [facility] Comment on above: Order Comment: Speci men Type: BLOOD SPECIMENOrdering Facility: [facility] Address: [address] [place] [address] Performed By: #### 5 7021-8 ####[facility] LABCLIA [id number] [address] [place] CNOVon 12-07-2024 CNOV Office Visit (INTMWS ) CARL GROSS ([id number]) 1985 M Date Time Provider Department 12/07/24 2:20 PM SEBAS LAWRENCE INTMWS During your visit today, we recorded the following information about you: Pulse Respiration Blood pressure Weight 78/minute 16/minute 136/74 110.9 kg Sebas Lawrence APRN.[employer] 12/07/2024 3:02 PM Signed Subjective Patient ID: Carl is a 39 year old male who presents for Chills (Ongoing for a few weeks, no fevers, no other symptoms). HPI Chills: - Intermittent chills x3 weeks. - Difficulty maintaining body temperature, even when dressed warmly. - No recent illness prior to onset; last illness was in August. - No associated cough, congestion, or headache. - No known thyroid issues; family history of thyroid issues in mother and grandmother. - Last thyroid labs were normal. Lightheadedness: - Feeling spaced out x3 weeks. - No associated syncope or dizziness. Nausea: - Intermittent nausea x3 weeks. - Using leftover antiemetic medication from recent knee surgery. - Decreased appetite; has not eaten today due to nausea. - Drinking approximately 140 oz of water daily. - No emesis or diarrhea. Recent Knee Surgery: - Underwent arthroscopic knee surgery for meniscus trimming on November 16. - Developed a bacterial infection at the incision site 1.5 weeks ago; currently on antibiotics with 2-3 days remaining. - No imaging or further follow-up planned; last follow-up was last , and the incision was healing well. - states no longer taking pain medication; stopped 2.5 weeks ago. ROS Constitutional: (+) chills, (+) fatigue, (+) decreased appetite Head: (-) headache Ears/Nose/Mouth/Throat: (-) congestion Respiratory: (-) cough Gastrointestinal: (+) nausea, (-) vomiting, (-) diarrhea, (+) decreased appetite Neurological: (+) lightheaded Psychiatric: (+) sleep disturbance No urinary complaints Objective BP 136/74 Pulse 78 Resp 16 Wt 110.9 kg (244 lb 7.8 oz) BMI 32.26 kg/m? Physical Exam Vitals and nursing note reviewed. Constitutional: Appearance: Normal appearance. HENT: Head: Normocephalic and atraumatic. Eyes: Conjunctiva/sclera: Conjunctivae normal. Cardiovascular: Rate and Rhythm: Normal rate and regular rhythm. Heart sounds: Normal heart sounds. Pulmonary: Effort: Pulmonary effort is normal. Breath sounds: Normal breath sounds. Abdominal: General: Bowel sounds are normal. Palpations: Abdomen is soft. Musculoskeletal: Comments: Some swelling in the left lateral aspect of knee near patella, well-healed otherwise no warmth erythema or induration Skin: General: Skin is warm and dry. Neurological: General: No focal deficit present. Mental Status: He is alert and oriented to person, place, and time. 1. Chills (without fever) (R68.83) - Experiencing chills for approximately three weeks, with difficulty maintaining body temperature. - No associated respiratory symptoms. - Recent surgical history and wound infection may contribute to current symptoms. - Advised adequate nutrition, hydration, and rest to support recovery. 2. Family history of thyroid disorder (Z83.49) - Family history of thyroid issues noted in mother and grandmother. - Previous thyroid function tests reportedly normal. - Ordered TSH and free T4 to evaluate current thyroid function. 3. S/P arthroscopic surgery of left knee (Z98.890) 4. Wound infection after surgery (T81.49XA) - Underwent arthroscopic meniscus surgery on November 16 at [facility]. - Developed a bacterial infection at the incision site approximately 1.5 weeks ago; currently on antibiotics with 2-3 days remaining. - Recent follow-up with surgeon reported good healing progress. - Advised to complete the antibiotic course and monitor for signs of infection such as redness, warmth, or drainage. 5. Nausea (R11.0) - Intermittent nausea affecting appetite; using leftover antiemetic medication as needed. - Recommended taking antiemetic medication around the clock to manage symptoms and maintain adequate nutrition. - Advised consuming protein shakes to supplement caloric intake during periods of reduced appetite. Symptoms started around the time of his arthroscopic surgery, notes decreased appetite and nausea since surgery. Was taking pain medication but states no longer is doing so. States still taking cephalexin for infection at the arthroscopic surgery site. Suspect his symptoms are related to surgery and recovery. Endorse supportive care, getting plenty of rest, fluids and routine meals. Reports takes a lot of supplements, however recommend holding these for few days to see if he feels improved. He will let us know if not continuing to feel improved or any concerns. Sebas Lawrence, MASOUD.[employer] Medical Decision Making: Problems: Low: Acute, uncomplicated illness (more content not included)... Normal [facility] Comprehensive metabolic 2000 panelon 12-07-2024 Albumin [Mass/Vol] 5.1 g/dL High 3.9-4.9 [facility] Comment on above: Order Comment: Speccayden holder Type: BLOOD SPECIMENOrdering Facility: [facility] Address: [address] [place] [address] Performed By: #### 2 4323-8, TSHRF ####[facility] LABCLIA [id number] [place] [address] [place] ALP [Catalytic activity/Vol] 73 U/L Normal 38-113 [facility] Comment on above: Order Comment: Priti holder Type: BLOOD SPECIMENOrdering Facility: [facility] Address: [address] [place] [address] Performed By: #### 2 4323-8, TSHRF ####[facility] LABCLIA [id number] [place] [id number] [place] ALT [Catalytic activity/Vol] 35 U/L Normal 10-54 [facility] Comment on above: Order Comment: Speci men Type: BLOOD SPECIMENOrdering Facility: [facility] Address: [address] [place] [address] Performed By: #### 2 4323-8, TSHRF ####[facility] LABCLIA [id number] [facility] [place] [id number] [place] Anion gap [Moles/Vol] 15 mmol/L Normal 8-15 [facility] Comment on above: Order Comment: Speci men Type: BLOOD SPECIMENOrdering Facility: [facility] Address: [address] [place] [address] Performed By: #### 2 4323-8, TSHRF ####[facility] LABCLIA [id number] [place] [address] [place] AST [Catalytic activity/Vol] 26 U/L Normal 14-40 [facility] Comment on above: Order Comment: Speci men Type: BLOOD SPECIMENOrdering Facility: [facility] Address: [address] [place] [address] Performed By: #### 2 4323-8, TSHRF ####[facility] LABCLIA [id number] [facility] [address], [facility] [place] Bilirubin [Mass/Vol] 0.7 mg/dL Normal 0.2-1.3 [facility] Comment on above: Order Comment: Speci men Type: BLOOD SPECIMENOrdering Facility: [facility] Address: [address] [place], [place] [address] Performed By: #### 2 4323-8, TSHRF ####[facility] LABCLIA [id number] [facility] [address], [facility] [place] Calcium [Mass/Vol] 10.2 mg/dL Normal 8.5-10.2 [facility] Comment on above: Order Comment: Speci men Type: BLOOD SPECIMENOrdering Facility: [facility] Address: [address] [place] [id number] Performed By: #### 2 4323-8, TSHRF ####[facility] LABCLIA [id number] [address] [address] [place] Chloride [Moles/Vol] 103 mmol/L Normal 98-107 [facility] Comment on above: Order Comment: Speci men Type: BLOOD SPECIMENOrdering Facility: [facility] Address: [address] [place] [address] Performed By: #### 2 4323-8, TSHRF ####[facility] LABCLIA [id number] [place] [id number] [place] CO2 [Moles/Vol] 24 mmol/L Normal 22-30 [facility] Comment on above: Order Comment: Speci men Type: BLOOD SPECIMENOrdering Facility: [facility] Address: [address] [place] [address] Performed By: #### 2 4323-8, TSHRF ####[facility] LABCLIA [id number] [place] [id number] [place] Creatinine [Mass/Vol] 1.01 mg/dL Normal 0.73-1.22 [facility] Comment on above: Order Comment: Speci men Type: BLOOD SPECIMENOrdering Facility: [facility] Address: [address] [place] [address] Performed By: #### 2 4323-8, TSHRF ####[facility] LABCLIA [id number] [place] [id number] [place] Creatinine and Glomerular filtration rate.predicted panel (S/P/Bld) 96 mL/min/1.73m??? Normal >=60 [facility] Comment on above: Order Comment: Speci men Type: BLOOD SPECIMENOrdering Facility: [facility] Address: [address] [place] [address] Result Comment: Nandini mated Glomerular Filtration Rate (eGFR) is calculated using the 2020 CKD-EPI creatinine equation. This equation utilizes serum creatinine, sex, and age as parameters. The creatinine assay has traceable calibration to isotope dilution-mass spectrometry. Refer to KDIGO guidelines for clinical interpretation. In patients with unstable renal function, e.g. those with acute kidney injury, the eGFR may not accurately reflect actual GFR. Performed By: #### 2 4323-8, TSHRF ####[facility] LABIA [id number] [address] [address] [place] Glucose [Mass/Vol] 71 mg/dL Low 74-99 [facility] Comment on above: Order Comment: Speci gallo Type: BLOOD SPECIMENOrdering Facility: [facility] Address: [address] [place] [address] Result Comment: The [place] Diabetes [employer] (ADA) provides guidance for cutoff values for fasting glucose and random glucose. The ADA defines fasting as no caloric intake for at least 8 hours. Fasting plasma glucose results between 100 to 125 mg/dL indicate increased risk for diabetes (prediabetes). Fasting plasma glucose results greater than or equal to 126 mg/dL meet the criteria for diagnosis of diabetes. In the absence of unequivocal hyperglycemia, results should be confirmed by repeat testing. In a patient with classic symptoms of hyperglycemia or hyperglycemic crisis, random plasma glucose results greater than or equal to 200 mg/dL meet the criteria for diagnosis of diabetes. Reference: Standards of Medical Care in Diabetes 2016, [place]. Diabetes Care. 2016.39(Suppl 1). Performed By: #### 2 4323-8, TSHRF ####[facility] LABIA [id number] [address] [address] [place] Potassium [Moles/Vol] 3.8 mmol/L Normal 3.7-5.1 [facility] Comment on above: Order Comment: Priti holder Type: BLOOD SPECIMENOrdering Facility: [facility] Address: [address] [place] [address] Performed By: #### 2 4323-8, TSHRF ####[facility] LABIA [id number] [address] [address] [place] Protein [Mass/Vol] 7.8 g/dL Normal 6.3-8.0 [facility] Comment on above: Order Comment: Speci men Type: BLOOD SPECIMENOrdering Facility: [facility] Address: [address] [place] [address] Performed By: #### 2 4323-8, TSHRF ####[facility] LABCLIA [id number] [address], [facility] [place] Sodium [Moles/Vol] 142 mmol/L Normal 136-144 [facility] Comment on above: Order Comment: Speci men Type: BLOOD SPECIMENOrdering Facility: [facility] Address: [address] [place] [address] Performed By: #### 2 4323-8, TSHRF ####[facility] LABCLIA [id number] [address], [place] [address] [place] Urea nitrogen [Mass/Vol] 13 mg/dL Normal 9-24 [facility] Comment on above: Order Comment: Speci men Type: BLOOD SPECIMENOrdering Facility: [facility] Address: [address] [place] [address] Performed By: #### 2 4323-8, TSHRF ####[facility] LABCLIA [id number] [address], [facility] [place] TSH W/REFLEX FT4on 5 TSH Qn 0.951 m[IU]/L Normal 0.270-4.20 0 [facility] Comment on above: Order Comment: Speci men Type: BLOOD SPECIMENOrdering Facility: [facility] Address: [address] [place] [address] Performed By: #### 2 4323-8, TSHRF ####[facility] LABCLIA [id number] [address], [facility] [place] Absolute neutrophil countOrd ered By: Shiv Garcia on 11-27-2024 Neutrophils (Bld) [#/Vol] 7.1 10*3/uL 2.0-7.7 [facility] Anion gap in Serum or Plasma Ordered By: Shiv Garcia on 11-27-2024 Anion gap [Moles/Vol] 13 mmol/L 5-15 [facility] BUN/creatinine ratioOrdered By: Shiv Garcia on 11-27-2024 Urea nitrogen/Creatinine [Mass ratio] 15.2 mg/mg 10-20 [facility] Basophil percentageOrdered B y: Shiv Garcia on 11-27-2024 Basophils/100 WBC (Bld) 0.6 % 0-1 [facility] Bilirubin, totalOrdered By: Shiv Garcia on 11-27-2024 Bilirubin [Mass/Vol] 0.60 mg/dL 0.00-1.30 [facility] CBC W/Diff, Automatedon - Absolute Lymph 1.64 X10 3/uL Normal 0.83-4.51 [facility] Comment on above: Performed By: #### L 500.4050, L100.0100 #### [facility] Laboratory [address] [place], [address] Absolute Neut 7.1 X10 3/uL Normal 2.0-7.7 [facility] Comment on above: Performed By: #### L 500.4050, L100.0100 #### [facility] [address] [place], [address] Basophils/100 WBC (Bld) 0.6 % Normal 0-1 [facility] Comment on above: Performed By: #### L 500.4050, L100.0100 #### [facility] [address] [place], [address] Eosinophils/100 WBC (Bld) 1.9 % Normal 0-5 [facility] Comment on above: Performed By: #### L 500.4050, L100.0100 #### [facility] [address] [place], [address] Erythrocyte distribution width (RBC) [Ratio] 11.7 % Normal 11.6-14.6 [facility] Comment on above: Performed By: #### L 500.4050, L100.0100 #### [facility] [address] [place], [address] Hematocrit (Bld) [Volume fraction] 43.7 % Normal 40-54 [facility] Comment on above: Performed By: #### L 500.4050, L100.0100 #### [facility] [address] [place], [address] Hemoglobin (Bld) [Mass/Vol] 15.1 g/dL Normal 13.0-16.5 [facility] Comment on above: Performed By: #### L 500.4050, L100.0100 #### [facility] [address] [place], [address] IG% 0.500 Normal 0.0-0.9 [facility] Comment on above: Result Comment: IG% - Immature Granulocytes (promyelocytes, myelocytes and metamyelocytes) > 1% indicates that a LEFT SHIFT is Present. Performed By: #### L 500.4050, L100.0100 #### [facility] [address] [place], [address] Lymphocytes/100 WBC (Bld) 16.8 % Low 19-41 [facility] Comment on above: Performed By: #### L 500.4050, L100.0100 #### [facility] [address] [place], [address] MCH (RBC) [Entitic mass] 29.5 pg Normal 27.0-32.0 [facility] Comment on above: Performed By: #### L 500.4050, L100.0100 #### [facility] [address] [place], [address] MCHC (RBC) [Mass/Vol] 34.6 g/dL Normal 32-36 [facility] Comment on above: Performed By: #### L 500.4050, L100.0100 #### [facility] [address] [place], [address] MCV (RBC) [Entitic vol] 85.4 fL Normal 80-94 [facility] Comment on above: Performed By: #### L 500.4050, L100.0100 #### [facility] [address] [place], [address] Monocytes/100 WBC (Bld) 7.6 % Normal 0-10 [facility] Comment on above: Performed By: #### L 500.4050, L100.0100 #### [facility] [address] [place], [address] Neutrophils/100 WBC (Bld) 72.6 % High 47-70 [facility] Comment on above: Performed By: #### L 500.4050, L100.0100 #### [facility] [address] [place], [address] Nucleated RBC (Bld) [#/Vol] 0 10*3/uL Normal 0-5 [facility] Comment on above: Performed By: #### L 500.4050, L100.0100 #### [facility] [address] [place], [address] Platelet mean volume (Bld) [Entitic vol] 9.7 fL Normal 6.2-12.0 [facility] Comment on above: Performed By: #### L 500.4050, L100.0100 #### [facility] [address] [place], [address] Platelets (Bld) [#/Vol] 228 10*3/uL Normal 150-450 [facility] Comment on above: Performed By: #### L 500.4050, L100.0100 #### [facility] [address] [place], [address] RBC (Bld) [#/Vol] 5.12 10*6/uL Normal 4.6-6.2 [facility] Comment on above: Performed By: #### L 500.4050, L100.0100 #### [facility] [address] [place], [address] RDW SD 36.1 fl Normal 35.1-43.9 [facility] Comment on above: Performed By: #### L 500.4050, L100.0100 #### [facility] [address] [place], [address] WBC (Bld) [#/Vol] 9.8 10*3/uL Normal 4.4-11.0 [facility] Comment on above: Performed By: #### L 500.4050, L100.0100 #### [facility] [address] [place], [address] Carbon dioxide, total [Moles /volume] in Central venous bloodOrdered By: Shiv Garcia on 11-27-2024 CO2 [Moles/Vol] 22.5 mmol/L 21.0-32.0 [facility] Chloride assayOrdered By: Soren Garica on 11-27-2024 Chloride [Moles/Vol] 103 mmol/L 98-108 [facility] Comprehensive Metabolic Prof ilon 11-27-2024 Albumin [Mass/Vol] 4.7 g/dL Normal 3.5-5.0 [facility] Comment on above: Performed By: #### L 500.4050, L100.0100 #### [facility] [address] [place], [address] Albumin/Globulin [Mass ratio] 1.8 {ratio} Normal 0.9-2.4 [facility] Comment on above: Performed By: #### L 500.4050, L100.0100 #### [facility] [address] [place], [address] ALK PHOS 66 U/L Normal 40-129 [facility] Comment on above: Performed By: #### L 500.4050, L100.0100 #### [facility] [address] [place], [address] ALT [Catalytic activity/Vol] 34 U/L Normal <=46 [facility] Comment on above: Performed By: #### L 500.4050, L100.0100 #### [facility] [address] [place], [address] AST [Catalytic activity/Vol] 25 U/L Normal <=37 [facility] Comment on above: Performed By: #### L 500.4050, L100.0100 #### [facility] [address] [place], [address] Bilirubin [Mass/Vol] 0.60 mg/dL Normal 0.00-1.30 [facility] Comment on above: Performed By: #### L 500.4050, L100.0100 #### [facility] [address] [place], [address] BUN/CRE 15.2 RATIO Normal 10-20 [facility] Comment on above: Performed By: #### L 500.4050, L100.0100 #### [facility] [address] [place], [address] Calcium [Mass/Vol] 9.5 mg/dL Normal 7.6-11.0 [facility] Comment on above: Performed By: #### L 500.4050, L100.0100 #### [facility] [address] [place], [address] Chloride [Moles/Vol] 103 mmol/L Normal 98-108 [facility] Comment on above: Performed By: #### L 500.4050, L100.0100 #### [facility] [address] [place], [address] CO2 [Moles/Vol] 22.5 mmol/L Normal 21.0-32.0 [facility] Comment on above: Performed By: #### L 500.4050, L100.0100 #### [facility] [address] [place], [address] Creatinine [Mass/Vol] 0.93 mg/dL Normal 0.70-1.20 [facility] Comment on above: Performed By: #### L 500.4050, L100.0100 #### [facility] [address] [place], [address] ECRCL 137.75 ml/min Normal 50-250 [facility] Comment on above: Performed By: #### L 500.4050, L100.0100 #### [facility] [address] [place], [address] GAP 13 Normal 5-15 [facility] Comment on above: Performed By: #### L 500.4050, L100.0100 #### [facility] [address] [place], [address] GFR/1.73 sq M.predicted among non-blacks MDRD (S/P/Bld) [Vol rate/Area] 106 mL/min/{1.73_m2} Normal >60 [facility] Comment on above: Result Comment: mL/m in/1.73m2 CKD-EPI Creatinine Equation (2020) Performed By: #### L 500.4050, L100.0100 #### [facility] [address] [place], [address] Globulin (S) [Mass/Vol] 2.6 g/dL Normal 2.2-4.2 [facility] Comment on above: Performed By: #### L 500.4050, L100.0100 #### [facility] [address] [place], [address] Glucose [Mass/Vol] 86 mg/dL Normal 70-99 [facility] Comment on above: Performed By: #### L 500.4050, L100.0100 #### [facility] [address] [place], [address] Potassium [Moles/Vol] 3.8 mmol/L Normal 3.3-5.1 [facility] Comment on above: Performed By: #### L 500.4050, L100.0100 #### [facility] [address] [place], [address] Sodium [Moles/Vol] 138 mmol/L Normal 133-145 [facility] Comment on above: Performed By: #### L 500.4050, L100.0100 #### [facility] [address] [place], [address] T PROT 7.3 g/dL Normal 5.9-8.4 [facility] Comment on above: Performed By: #### L 500.4050, L100.0100 #### [facility] [address] [place], [address] Urea nitrogen [Mass/Vol] 14 mg/dL Normal 4-19 [facility] Comment on above: Performed By: #### L 500.4050, L100.0100 #### [facility] [address] [place], [address] Emergency Department Summary on 11-27-2024 Emergency Department Summary [facility] Medical Records Department [address] [place] [address] Emergency Department Summary 11/27/24 MR#: [id number] Acct: [id number] Name: CARL GROSS Rep #: [id number] : 1985 39 From: Shiv Garcia MD PCP: Dr. Simba Horton, DO Status:REG ER Location: ED HPI History of Present Illness Chief Complaint: General Illness Narrative Narrative: 39-year-old male past medical history of previous knee problems states that he had surgery performed by Dr. Lopez at the [facility] on 16 November, approximately 10 days ago. He is now follow-up for the next 2 days. He states that Dr. Lopez had removed the meniscal cartilage in his left knee. He had the same surgery performed on his right knee about a year ago. He states that there is a small area on the left knee where there is a stitch that might be infected. Last Tuesday approximately 6 days ago, he started feeling weak and lightheaded. He felt feverish as well. He developed petechiae on his bilateral lower extremities and on his trunk. He is concerned that he may have an infection in his knee. [facility] Medical History Tear of meniscus of left knee Gout Asthma Home Medications ???Medication ???Instructions ???Recorded ???Last Taken ???Type naproxen sodium 550 mg tablet 550 mg PO BID 07/11/24 Unknown His tory oxycodone 5 mg tablet 5 mg PO Q6H PRN pain 3 days #12 Unknown Rx tabs Allergy/AdvReac Type Severity Reaction Status Date / Time bee venom protein (honey bee) Allergy Anaphylaxis Verified 11/27/24 15:37 Cyanoacrylates Allergy Rash Verified 11/27/24 15:37 Family History no significant family his Surgical History H/O medial meniscus repair of right knee History of esophagogastroduodenoscopy (EGD) Surgical History no surgical history Social History household members: spouse current occupational status: employed Smoking Status: Never smoker alcohol intake: never ROS ROS ED ROS Narrative Review of systems positive for feeling feverish, lightheadedness/generalized weakness. Developed petechiae on bilateral lower extremities and on abdomen. Denies other bleeding diathesis or easy bruising. EXAM Physical Exam Narrative Exam Narrative: Afebrile. Vital signs noted. Nontoxic-appearing. Cardiovascular examination feels a regular rate and rhythm. Lungs are clear to auscultation bilaterally. Abdomen is soft, nontender, without guarding or rebound. Positive bowel sounds. Neurological examination is nonfocal and nonlateralizing. Inspection of the left knee does show a small area with minimal erythema. Positive flexion extension left knee, no pain with passive range of motion. Neurovascular intact distally. Skin examination does show nonblanching petechiae on the bilateral lower extremities diffusely and on the abdomen. Const Vital Signs: 11/27/24 15:36 11/27/24 15:40 11/27/24 15:48 Temperature 97.6 F L 97.6 F L Temperature Source Oral Oral Pulse Rate 105 H 94 Respiratory Rate 16 18 Respiratory Effort Normal Short of Breath Respiratory Pattern Normal Blood Pressure 161/94 H 152/101 H Blood Pressure Mean 116 118 Pulse Ox 100 99 Oxygen Delivery Method Room Air Room Air MDM MDM MDM Narrative Medical decision making narrative: Differential diagnosis includes but not limited to vasculitis versus low platelets. I have very low suspicion for septic arthritis of the left knee given his clinical examination as he has full active range of motion and no pain with passive range of motion and there is no erythema. He is afebrile here as well. I do not feel arthrocentesis is indicated. I will check a CBC and a CMP given his generalized lightheadedness and weakness as well as malaise. I reviewed his laboratory work and he has normal white count of 9.8, hemoglobin 15.1, hematocrit 43.7, platelet count 228. CMP is grossly unremarkable as well. X-ray of the left knee and 4 views obtained and interpreted by myself independently shows no evidence of an effusion or fracture. At this point in time, I have very low suspicion for septic arthritis status post surgery as he is able to ambulate to the bathroom without difficulty. I was able to discuss the patient with Dr. Lopez at the [facility], who states that he had called in an antibiotic for the patient on Tuesday, yesterday which it was confirmed that the patient is currently taking. It was thought that this was more of a stitch granuloma on his left lateral, distal knee. Dr. Lopez was able to confirm and agrees that arthrocentesis is not indicated without the presence of fever or white count. It was thought that he co (more content not included)... Normal [facility] Eosinophil percentageOrdered By: Shiv Garcia on 11-27-2024 Eosinophils/100 WBC (Bld) 1.9 % 0-5 [facility] Erythrocyte distribution wid th ratioOrdered By: Shiv Garcia on 11-27-2024 Erythrocyte distribution width (RBC) [Ratio] 11.7 % 11.6-14.6 [facility] Erythrocyte distribution wid th standard deviationOrdered By: Shiv Garcia on 11-27-2024 Erythrocyte distribution width (RBC) [Entitic vol] 36.1 fL 35.1-43.9 [facility] Estimation of creatinine carmen aranceOrdered By: Shiv Garcia on 11-27-2024 Estimated Creatinine Clearance Calc 137.75 ml/min 50-250 [facility] GFR/1.73 sq M.predicted joe g non-blacks MDRD (S/P/Bld) [Vol rate/Area]Ordered By: Shiv Garcia on 11-27-2024 Estimated GFR (MDRD) Non-Af Amer 106 >60 [facility] Comment on above: mL/min/1.73m2 CKD-EP I Creatinine Equation (2020) Hematocrit Auto (Bld) [Volum e fraction]Ordered By: Shiv Garcia on 11-27-2024 Hematocrit (Bld) [Volume fraction] 43.7 % 40-54 [facility] Hemoglobin measurementOrdere d By: Shiv Garcia on 11-27-2024 Hemoglobin (Bld) [Mass/Vol] 15.1 g/dL 13.0-16.5 [facility] Immature granulocytes/100 WB C Auto (Bld)Ordered By: Shiv Garcia on 11-27-2024 Immature granulocytes/100 WBC (Bld) 0.500 % 0.0-0.9 [facility] Comment on above: IG% - Immature Granu locytes (promyelocytes, myelocytes and metamyelocytes) > 1% indicates that a LEFT SHIFT is Present. Knee 4 or More Viewson 11-27 Knee 4 or More Views [facility] [address] [place] [address] Knee 4 or More Views MR#: [id number] Acct: [id number] Name: CARL GROSS GENE Rep #: [id number] : 1985 M 39 From: Radha Smith DO PCP: Dr. Simba Horton, DO Status: REG ER Study: Knee 4 or More Views Date of Exam: 11/27/24 Exam# [id number] Ordering Dr: Shiv Garcia MD PROCEDURE: KNEE 4 OR MORE VIEWS 11/27/2024 REASON FOR EXAM: PAIN TECHNIQUE: 4 view(s) of the left knee COMPARISON: Radiograph of the left knee dated 09/16/2024 FINDINGS: Bones: No fracture. No suspicious bone lesion. Joints: Normal alignment. Mild degenerative changes. Effusion: No effusion. Soft tissues: Soft tissues are unremarkable. Other: RAD/Knee 4 or More Views IMPRESSION: NO EFFUSION ACUTE FRACTURE OR DISLOCATION. Reading Location: [facility] CC: Dr. Shiv Garcia MD; Dr. Simba Horton DO Comparator Operator: Signed Normal [facility] Laboratory - Chemistry and C hemistry - challengeOrdered By: Shvi Garcia on 11-27-2024 AST [Catalytic activity/Vol] 25 U/L <38 [facility] Lymphocytes Auto (Unsp spec) [#/Vol]Ordered By: Shiv Garcia on 11-27-2024 Lymphocytes (Bld) [#/Vol] 1.64 10*3/uL 0.83-4.51 [facility] Lymphocytes/100 WBC Auto (Un sp spec)Ordered By: Shiv Garcia on 11-27-2024 Lymphocytes/100 WBC (Bld) 16.8 % Low 19-41 [facility] MCV (mean corpuscular volume ) determinationOrdered By: Shiv Garcia on 11-27-2024 MCV (RBC) [Entitic vol] 85.4 fL 80-94 [facility] Mean corpuscular hemoglobin (MCH) determinationOrdered By: Shiv Garcia on 11-27-2024 MCH (RBC) [Entitic mass] 29.5 pg 27.0-32.0 [facility] Mean corpuscular hemoglobin concentration (MCHC) determinationOrdered By: Shiv Garcia on 11-27-2024 MCHC (RBC) [Mass/Vol] 34.6 g/dL 32-36 [facility] Mean platelet volume determi nationOrdered By: Shiv Garcia on 11-27-2024 Platelet mean volume (Bld) [Entitic vol] 9.7 fL 6.2-12.0 [facility] Monocyte percentageOrdered B y: Shiv Garcia on 11-27-2024 Monocytes/100 WBC (Bld) 7.6 % 0-10 [facility] Neutrophil percentageOrdered By: Shiv Garcia on 11-27-2024 Neutrophils/100 WBC (Bld) 72.6 % High 47-70 [facility] Nucleated red blood cell per centageOrdered By: Shiv Garcia on 11-27-2024 Nucleated RBC/100 WBC (Bld) [Ratio] 0 % 0-5 [facility] Platelet countOrdered By: Soren Garcia on 11-27-2024 Platelets (Bld) [#/Vol] 228 10*3/uL 150-450 [facility] Potassium (Unsp spec) [Mass/ Vol]Ordered By: Shiv Garcia on 11-27-2024 Potassium [Moles/Vol] 3.8 mmol/L 3.3-5.1 [facility] RBC Auto (Bld) [#/Vol]Ordere d By: Shiv Garcia on 11-27-2024 RBC (Bld) [#/Vol] 5.12 10*6/uL 4.6-6.2 [facility] Serum creatinine measurement (mass/volume)Ordered By: Shiv Garcia on 11-27-2024 Creatinine [Mass/Vol] 0.93 mg/dL 0.70-1.20 [facility] Serum globulin measurementOr dered By: Shiv Garcia on 11-27-2024 Globulin (S) [Mass/Vol] 2.6 g/dL 2.2-4.2 [facility] Serum glucose measurement (m ass/volume)Ordered By: Shiv Garcia on 11-27-2024 Glucose [Mass/Vol] 86 mg/dL 70-99 [facility] Serum or plasma alanine oleary otransferase (ALT) measurementOrdered By: Shiv Garcia on 11-27-2024 ALT [Catalytic activity/Vol] 34 U/L <47 [facility] Serum or plasma albumin yoel urement (mass/volume)Ordered By: Shiv Garcia on 11-27-2024 Albumin [Mass/Vol] 4.7 g/dL 3.5-5.0 [facility] Serum or plasma albumin/glob ulin mass ratioOrdered By: Shiv Kateyglory on 11-27-2024 Albumin/Globulin [Mass ratio] 1.8 {ratio} 0.9-2.4 [facility] Serum or plasma alkaline pe[place]ton sphatase measurementOrdered By: Shiv Garcia on 11-27-2024 ALP [Catalytic activity/Vol] 66 U/L 40-129 [facility] Serum or plasma calcium yoel urement (mass/volume)Ordered By: Shiv Garcia on 11-27-2024 Calcium [Mass/Vol] 9.5 mg/dL 7.6-11.0 [facility] Serum or plasma urea nitroge n measurement (mass/volume)Ordered By: Shiv Garcia on 11-27-2024 Urea nitrogen [Mass/Vol] 14 mg/dL 4-19 [facility] Sodium levelOrdered By: Shiv Garcia on 11-27-2024 Sodium [Moles/Vol] 138 mmol/L 133-145 [facility] Total proteinOrdered By: Whitney Garcia on 11-27-2024 Protein [Mass/Vol] 7.3 g/dL 5.9-8.4 [facility] White blood cell (WBC) count Ordered By: Shiv Garcia on 11-27-2024 WBC (Bld) [#/Vol] 9.8 10*3/uL 4.4-11.0 [facility] ANES POSTPROC EVALon 025 ANES POSTPROC EVAL HNO ID: [id number] Author: VICK PLATA APRN.CRNA Service: ? Author Type: Nurse Recovery Assistant Type: Anesthesia Postprocedure Evaluation Filed: 11/19/2024 07:52 Note Text: POST ANESTHESIA EVALUATION NOTE : 1985 Procedure Summary Date: 11/19/24 Room / Location: [facility] Anesthesia Start: 726 Anesthesia Stop: 743 Procedure: COLONOSCOPY DIAGNOSTIC Diagnosis: Rectal bleeding (Hematochezia) Scheduled Providers: Vi Trevino Jr., ; Aiyana Mancilla RN; Vick Plata APRN.SILVERWARE BUFFING MACHINE OPERATOR Responsible Provider: Vick Plata APRN.CRNA Anesthesia Type: MAC ASA Status: 2 Anesthesia Type: MAC Last Vitals Vitals Value Taken Time BP 122/88 11/19/24 0750 Temp 11/19/24 0752 Pulse 78 11/19/24 0750 Resp 16 11/19/24 0746 SpO2 96 % 11/19/24 0750 Vitals shown include unfiled device data. Post Anesthesia Patient Status Patient Evaluation: bedside. Anticipated Disposition: phase 2 then home. Neurological Status: aware and responsive. Pulmonary Status: breathing comfortably on room air Airway Control: returned to baseline unsupported. Cardiovascular Status: stable. Pain Management: clinically adequate Postoperative Hydration: acceptable. Intraoperative Events: no significant anesthesia events Post Operative Nausea/Vomiting Status: no significant post operative nausea or vomiting Recommendation: continue current plan of care. Anesthesia Observations No Documentation SIGNATURE: Vick Plata APRN.CRNA PATIENT NAME: Carl Gross DATE: November 19, 2024 TIME: 7:52 AM CSN: [id number] Normal [facility] ANES PRE-OPon 11-19-2024 ANES PRE-OP HNO ID: [id number] Author: VICK PLATA APRN.SILVERWARE BUFFING MACHINE OPERATOR Service: ? Author Type: Nurse Recovery Assistant Type: Anesthesia Preprocedure Evaluation Filed: 11/19/2024 07:22 Note Text: ANESTHESIOLOGY DAY OF SURGERY NOTE : 1985 Procedure Information Date/Time: 11/19/24 0730 Scheduled providers: Vi Trevino Jr., DO; Aiyana Mancilla RN; Vick Plata APRN.CRNA Procedure: COLONOSCOPY DIAGNOSTIC Location: [facility] Estimated body mass index is 34.78 kg/m? as calculated from the following: Height as of 06/12/24: 185.4 cm (6' 1). Weight as of 11/05/24: 119.6 kg (263 lb 9.6 oz). Most recent hematocrit and potassium results: Hematocrit 46.8 05/01/2024 Potassium 4.6 05/01/2024 Relevant Problems GI (+) GERD without esophagitis PULMONARY (+) Asthma Other (+) Chronic gout of multiple sites Class II Obesity, BOB, GERD, Gout, Depression, Anxiety, h/o Awareness under Anesthesia, Asthma, chronic pain med (Opoids) usage. FB I - PHYSICAL EVALUATION AIRWAY Patient intubated: No. Tracheostomy tube not present Mallampati: I. TM distance: >3 FB. Neck ROM: full ROM without neurological symptoms. Mouth opening: adequate. Short neck: no. Thick neck: no Gamez present: no DENTAL Dental findings: teeth intact. Dentures, upper: partial. II - ANESTHESIA PLAN ASA Score: 2 Anesthetic Plan: MAC The patient is not a current smoker. NPO Status: adequate Beta Yoselyn Monitoring Plan Monitoring plan: standard ASA. Post Procedure Analgesic Plan Postoperative analgesic plan: per surgical service. Informed Consent Anesthetic risks, benefits, alternatives, personnel and consent discussed: yes. Patient / Responsible Green Party agrees to proceed: yes Patient / Surrogate agrees to blood products: blood products not planned DNR status not reviewed with patient and/or family prior to surgery. Significant changes in the patient condition since the History and Physical, not otherwise documented in primary service progress note: no. Potential Anesthesia issues that may suggest increased risk of complications or contraindication to planned procedure: none. No vitals data found for the desired time range. Outpatient Medications as of 11/19/2024 Medication Sig peg 3350-Electrolytes (GOLYTELY) 236-22.74-6.74 -5.86 gram suspension Take 4 L by mouth one time only. omeprazole (PRILOSEC) 40 mg capsule Take 1 capsule by mouth two times a day. Take 30 min before breakfast and dinner cetirizine (ZYRTEC) 10 mg tablet Take 10 mg by mouth once daily. ALPRAZolam (XANAX) 0.25 mg tablet Take 1 tablet by mouth as needed for up to 30 days. traZODone (DESYREL) 100 mg tablet Take 1-2 tablets by mouth daily at bedtime. allopurinol (ZYLOPRIM) 100 mg tablet Take 1 tablet by mouth once daily. For gout. dupilumab (DUPIXENT PEN) 300 mg/2 mL pen injection Inject 300 mg subcutaneously one time a week. For eosinophilic esophagitis; ICD10 = K20.0 sertraline (ZOLOFT) 100 mg tablet Take 1 tablet by mouth once daily. EPINEPHrine (EPIPEN) 0.3 mg/0.3 mL auto-injector Inject at onset of bee venom sting Naproxen Sodium 550 mg tablet Take 550 mg by mouth two times a day with meals. aspirin, enteric coated (ASPIRIN, ENTERIC COATED) 81 mg EC tablet Take 81 mg by mouth once daily. (Patient not taking: Reported on 06/26/2024) albuterol HFA (PROAIR HFA) 90 mcg/actuation inhaler Inhale 2 Puffs as instructed every 4 hours as needed. naproxen (NAPROSYN) 500 mg tablet Take 1 tablet by mouth three times a day with meals. Take with food. cyclobenzaprine (FLEXERIL) 10 mg tablet Take 1 tablet by mouth three times a day as needed for muscle spasm. (Patient not taking: Reported on 06/26/2024) oxyCODONE-acetaminophen (PERCOCET) 5-325 mg tablet (Patient not taking: Reported on 11/05/2024) fluticasone (FLONASE) 50 mcg/actuation nasal spray Use 1 [place] in each nostril daily at bedtime. montelukast (SINGULAIR) 10 mg tablet Take 1 tablet by mouth daily at bedtime. amino acids (BCAA ORAL) Take by mouth once daily. No current facility-administered medications on file as of 11/19/2024. I have interviewed and examined the patient. I have reviewed the medical record and/or the pre-anesthesia evaluation, pertinent labs, and test results. This contains updated information obtained within 48 hours of Surgery/Procedure. SIGNATURE: Vick Plata APRN.SILVERWARE BUFFING MACHINE OPERATOR PATIENT NAME: Carl Gross DATE: November 19, 2024 TIME: 7:16 AM CSN: [id number] Normal [facility] Colonoscopyon 11-19-2024 Colonoscopy [facility] Gastrointestinal Endoscopy Patient Name: Carl Gross Procedure Date: 11/19/2024 7:16 AM Date of : 1985 Admit Type: Outpatient Age: 39 Gender: Male Note Status: Finalized Attending MD: Vi Trevino Jr, DO, [id number] Procedure: Colonoscopy Indications: Hematochezia Providers: Vi Trevino Jr, DO Patient Profile: This is a 39 year old male. Refer to note in patient chart for documentation of history and physical. Last Colonoscopy: 4 years ago. Referring Physician: Robi Hendrickson MD (Referring MD) Medicines: Propofol per Anesthesia, Monitored Anesthesia Care Complications: No immediate complications. Requesting Provider: Procedure: Pre-Anesthesia Assessment: - Prior to the procedure, a History and Physical was performed, and patient medications and allergies were reviewed. The patient's tolerance of previous anesthesia was also reviewed. The risks and benefits of the procedure and the sedation options and risks were discussed with the patient. All questions were answered, and informed consent was obtained. Prior Anticoagulants: The patient has taken no anticoagulant or antiplatelet agents. ASA Grade Assessment: II - A patient with mild systemic disease. After reviewing the risks and benefits, the patient was deemed in satisfactory condition to undergo the procedure. After I obtained informed consent, the scope was passed under direct vision. Throughout the procedure, the patient's blood pressure, pulse, and oxygen saturations were monitored continuously. The Colonoscope was introduced through the anus and advanced to the terminal ileum, with identification of the appendiceal orifice and IC valve. The colonoscopy was performed without difficulty. The patient tolerated the procedure well. The quality of the bowel preparation was good. The entire colon was visualized. The terminal ileum, ileocecal valve, appendiceal orifice, and rectum were photographed. Scope Withdrawal Time: 0 hours 7 minutes 48 seconds Total Procedure Duration: 0 hours 10 minutes 16 seconds Findings: The digital rectal exam was normal. The terminal ileum appeared normal. Non-bleeding internal hemorrhoids were found during retroflexion. The hemorrhoids were Grade II (internal hemorrhoids that prolapse but reduce spontaneously). The exam was otherwise without abnormality. Moderate Sedation: MAC anesthesia was administered by the anesthesia team. Impression: - The examined portion of the ileum was normal. - Non-bleeding internal hemorrhoids. - The examination was otherwise normal. - No specimens collected. Recommendation: - Discharge patient to home. - Resume regular diet. - Continue present medications. - Repeat colonoscopy in 10 years for screening purposes. - Start Anusol HC for hemorrhoids if bleeding recurs. - Patient has a contact number available for emergencies. The signs and symptoms of potential delayed complications were discussed with the patient. Return to normal activities tomorrow. Written discharge instructions were provided to the patient. Procedure Code(s): --- Professional --- 41070, Colonoscopy, flexible; diagnostic, including collection of specimen(s) by brushing or washing, when performed (separate procedure) Diagnosis Code(s): --- Professional --- K64.1, Second degree hemorrhoids K92.1, Melena (includes Hematochezia) CPT copyright 2020 [employer]. All rights reserved. The codes documented in this report are preliminary and upon ship engines operating engineer review may be revised to meet current compliance requirements. Attending Participation: I personally performed the entire procedure. MD Vi Perkins Jr, DO 11/19/2024 7:48:36 AM This report has been signed electronically by Vi Trevino Jr, DO Number of Addenda: 0 Note Initiated On: 11/19/2024 7:16 AM Procedure Start: 7:31:01 AM Procedure End: 7:41:17 AM Normal [facility] Flexible sigmoidoscopy study on 11-19-2024 [facility] Gastrointestinal Endoscopy Patient Name: Carl Gross Procedure Date: 11/19/2024 7:16 AM Date of : 1985 Admit Type: Outpatient Age: 39 Gender: Male Note Status: Finalized Attending MD: Vi Trevino Jr, DO, [id number] Procedure: Colonoscopy Indications: Hematochezia Providers: Vi Trevino Jr, DO Patient Profile: This is a 39 year old male. Refer to note in patient chart for documentation of history and physical. Last Colonoscopy: 4 years ago. Referring Physician: Robi Hendrickson MD (Referring MD) Medicines: Propofol per Anesthesia, Monitored Anesthesia Care Complications: No immediate complications. Requesting Provider: Procedure: Pre-Anesthesia Assessment: - Prior to the procedure, a History and Physical was performed, and patient medications and allergies were reviewed. The patient's tolerance of previous anesthesia was also reviewed. The risks and benefits of the procedure and the sedation options and risks were discussed with the patient. All questions were answered, and informed consent was obtained. Prior Anticoagulants: The patient has taken no anticoagulant or antiplatelet agents. ASA Grade Assessment: II - A patient with mild systemic disease. After reviewing the risks and benefits, the patient was deemed in satisfactory condition to undergo the procedure. After I obtained informed consent, the scope was passed under direct vision. Throughout the procedure, the patient's blood pressure, pulse, and oxygen saturations were monitored continuously. The Colonoscope was introduced through the anus and advanced to the terminal ileum, with identification of the appendiceal orifice and IC valve. The colonoscopy was performed without difficulty. The patient tolerated the procedure well. The quality of the bowel preparation was good. The entire colon was visualized. The terminal ileum, ileocecal valve, appendiceal orifice, and rectum were photographed. Scope Withdrawal Time: 0 hours 7 minutes 48 seconds Total Procedure Duration: 0 hours 10 minutes 16 seconds Findings: The digital rectal exam was normal. The terminal ileum appeared normal. Non-bleeding internal hemorrhoids were found during retroflexion. The hemorrhoids were Grade II (internal hemorrhoids that prolapse but reduce spontaneously). The exam was otherwise without abnormality. Moderate Sedation: MAC anesthesia was administered by the anesthesia team. Impression: - The examined portion of the ileum was normal. - Non-bleeding internal hemorrhoids. - The examination was otherwise normal. - No specimens collected. Recommendation: - Discharge patient to home. - Resume regular diet. - Continue present medications. - Repeat colonoscopy in 10 years for screening purposes. - Start Anusol HC for hemorrhoids if bleeding recurs. - Patient has a contact number available for emergencies. The signs and symptoms of potential delayed complications were discussed with the patient. Return to normal activities tomorrow. Written discharge instructions were provided to the patient. Procedure Code(s): --- Professional --- 94284, Colonoscopy, flexible; diagnostic, including collection of specimen(s) by brushing or washing, when performed (separate procedure) Diagnosis Code(s): --- Professional --- K64.1, Second degree hemorrhoids K92.1, Melena (includes Hematochezia) CPT copyright 2020 [employer]. All rights reserved. The codes documented in this report are preliminary and upon ship engines operating engineer review may be revised to meet current compliance requirements. Attending Participation: I personally performed the entire procedure. MD Vi Perkins Jr, 11/19/2024 7:4 (more content not included)... PROVATION [facility] Radiology Study observation (narrative) [facility] HISTORY PHYSICALon HISTORY PHYSICAL HNO ID: [id number] Author: VI TREVINO JR, DO Service: Gastroenterology Author Type: Physician Type: H&P Filed: 11/19/2024 07:22 Note Text: HISTORY AND PHYSICAL EXAMINATION SERVICE DATE: 11/19/2024 SERVICE TIME: 7:21 AM Chief Complaint: blood in stool HPI:This is a 39 year old male who presents with blood in stool. Denies abd pain, constipation and diarrhea. Negative family history. Last colonoscopy was 4 yrs ago. PAST MEDICAL HISTORY Diagnosis Date Acute right-sided back pain with sciatica Arthritis Asthma Awareness under anesthesia Dysthymia 02/03/2022 Eosinophilic esophagitis THA (generalized anxiety disorder) Generalized anxiety disorder Obstructive sleep apnea Palpitations Seasonal allergies Well adult exam PAST SURGICAL HISTORY Procedure Laterality Date ABDOMINAL SURGERY HX APPENDECTOMY HX 2020 COLONOSCOPY 01/21/2021 EGD 10/22/2020 Active esophagitis with increased intraepithelial eosinophils,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 EGD 01/21/2021 PAST SURGICAL HISTORY OF 02/2012 left foot surgery PAST SURGICAL HISTORY OF 2009 repair tendon right hand PAST SURGICAL HISTORY OF 05/2018 Throat PAST SURGICAL HISTORY OF Right 12/05/2023 arthroscopic knee- meniscus repair SINUS SURGERY HX 2015 FAMILY HISTORY Problem Relation Age of Onset Cancer Father thyroid? Cancer Mother thyroid Hypertension Maternal Grandfather Cancer Maternal Grandmother thyroid Hypertension Maternal Grandmother Anesthesia Problems No Family History Social History Tobacco Use Smoking status: Never Smokeless tobacco: Never Vaping Use Vaping status: Never Used Substance Use Topics Alcohol use: Yes Alcohol/week: 5.0 standard drinks of alcohol Types: 3 Standard drinks or equivalent, 2 Cans of Beer (12oz) per week Comment: occasional alcohol use Drug use: No (Not in a hospital admission) ALLERGIES Allergen Reactions Bee Sting Swelling Local swelling and shortness of breath Dermabond [2-Octyl * Rash COMPLETE REVIEW OF SYSTEMS: GENERAL: No weight loss, malaise or fevers RESPIRATORY: Negative for cough, hemoptysis, wheezing, COPD, dyspnea or shortness of breath CARDIOVASCULAR: Negative for chest pain, leg swelling, hypertension, CHF or palpitations GI: No nausea, vomiting, or diarrhea BP 145/91 Pulse 80 Temp (Src) 98.8 (Temporal) Resp 20 Ht 6' 1 (1.85m) Wt 248 lb (112.5kg) SpO2 98% BMI 32.73 kg/(m2). O2 Therapy: Room Air PHYSICAL EXAM: Physical Exam Performed: GENERAL: Alert, no distress, cooperative LUNGS: Lungs clear to auscultation, Good diaphragmatic excursion CARDIAC: Normal S1 and S2; no rubs, murmurs, or gallops ABDOMEN: Abdomen soft, non-tender, BS normal, No masses or organomegaly EXTREMITIES: Extremities normal, no deformities, edema, clubbing or skin discoloration. Good capillary refill., No ulcers (K62.5) Rectal bleeding Plan: COLONOSCOPY DIAGNOSTIC, COLONOSCOPY DIAGNOSTIC SIGNATURE: Vi Trevino Jr., DO PATIENT NAME: Carl Gross DATE: November 19, 2024 TIME: 7:21 AM PAGER/CONTACT #: Normal [facility] NURSING PROGon 11-19-2024 NURSING PROG HNO ID: [id number] Author: WENDY MENDOZA RN Service: Nursing Author Type: Registered Nurse Type: Nursing Progress Note Filed: 11/19/2024 07:53 Note Text: POST OP LEARNING RESPONSE INSTRUCTION PROVIDED TO: Patient and Spouse METHOD OF INSTRUCTION: Written instruction/Handouts Verbal instruction PATIENT / FAMILY RESPONSE: Verbalizes understanding of: POST-PROCEDURE INSTRUCTIONS-Correct actions to take to reduce post procedure complications FOLLOW-UP PLAN: Complete - No need for follow-up SUPPLEMENTAL MATERIAL: None REFERRAL (RECOMMENDATION): None Electronically Signed By: Wendy Mendoza RN In Department: [facility] [place] Normal [facility] NURSING PROG HNO ID: [id number] Author: CHRISTI WALLACE RN Service: Nursing Author Type: Registered Nurse Type: Nursing Progress Note Filed: 11/19/2024 07:25 Note Text: Patient had left knee arthroscopy 11/16/2024. Patient stated that orthopedic surgeon informed him that it is acceptable to have colonoscopy today. Dr Trevino and Vick Plata SILVERWARE BUFFING MACHINE OPERATOR informed. Okay to proceed as planned. Normal [facility] NURSING PROG HNO ID: [id number] Author: CHRISTI WALLACE RN Service: Nursing Author Type: Registered Nurse Type: Nursing Progress Note Filed: 11/19/2024 07:24 Note Text: PRE OP LEARNING ASSESSMENT PROCEDURE/SURGERY: GI PROCEDURES: Colonoscopy READINESS TO LEARN COGNITIVE ABILITY: Alert and oriented MOTIVATION TO LEARN: Interested FAMILY SUPPORT: Unable to assess - Family not present PATIENT LEARNS BEST BY: Individual Instruction Written Instruction - Hand-outs Verbal Instruction FACTORS AFFECTING LEARNING: None PHYSICAL LIMITATIONS AFFECTING LEARNING: None Electronically Signed By: Christi Wallace RN In Department: [facility] [place] Normal [facility] CNOVon 11-05-2024 CNOV Office Visit (FAMPWS ) CARL GROSS ([id number]) 1985 M Date Time Provider Department 11/05/24 3:40 PM SHELLY BRODERICK FAMPWS During your visit today, we recorded the following information about you: Pulse Respiration Blood pressure Weight 76/minute 12/minute 140/80 119.6 kg Shelly Broderick APRN.EMERY GRINDER 11/05/2024 4:14 PM Signed Chief Complaint Patient presents with: BLOOD STOOL LAST NIGHT AN TODAY BRIGHT RED HPI Carl Gross is a 39 year old male who presents here today for Above Complaints. Carl is an established patient of Dr. Clifford DO. Concerns today... Pt reports 2 episodes of bright red blood on stool and in toilet. One episode last night that was just dots of blood on stool and dripping in toilet and an episode at 7 am this morning of almost a quarter size blood clot from rectum. No episodes since. Pt is completely asymptomatic with this. No pain, dizziness, n/v/d/c, abd pain, or cramping. Has had external hemorrhoids before and reports there is nothing there, whatever this is is internal. Denies any dark, tarry stools or mucous in stool. No fever/chills. No other concerns or complications. Past medical history, appointments, medications, allergies reviewed. Previous Medical History PAST MEDICAL HISTORY Diagnosis Date Acute right-sided back pain with sciatica Arthritis Asthma Awareness under anesthesia Dysthymia 02/03/2022 Eosinophilic esophagitis THA (generalized anxiety disorder) Generalized anxiety disorder Obstructive sleep apnea Palpitations Seasonal allergies Well adult exam Previous Surgical History PAST SURGICAL HISTORY Procedure Laterality Date ABDOMINAL SURGERY HX APPENDECTOMY HX 2020 COLONOSCOPY 01/21/2021 EGD 10/22/2020 Active esophagitis with increased intraepithelial eosinophils,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 EGD 01/21/2021 PAST SURGICAL HISTORY OF 02/2012 left foot surgery PAST SURGICAL HISTORY OF 2009 repair tendon right hand PAST SURGICAL HISTORY OF 05/2018 Throat PAST SURGICAL HISTORY OF Right 12/05/2023 arthroscopic knee- meniscus repair SINUS SURGERY HX 2016 Family History FAMILY HISTORY Problem Relation Age of Onset Cancer Father thyroid? Cancer Mother thyroid Hypertension Maternal Grandfather Cancer Maternal Grandmother thyroid Hypertension Maternal Grandmother Anesthesia Problems No Family History Patient Allergies ALLERGIES Allergen Reactions Bee Sting Swelling Local swelling and shortness of breath Dermabond [2-Octyl * Rash Current Medications Current Outpatient Medications on File Prior to Visit Medication Sig traZODone (DESYREL) 100 mg tablet Take 1-2 tablets by mouth daily at bedtime. allopurinol (ZYLOPRIM) 100 mg tablet Take 1 tablet by mouth once daily. For gout. dupilumab (DUPIXENT PEN) 300 mg/2 mL pen injection Inject 300 mg subcutaneously one time a week. For eosinophilic esophagitis; ICD10 = K20.0 EPINEPHrine (EPIPEN) 0.3 mg/0.3 mL auto-injector Inject at onset of bee venom sting omeprazole (PRILOSEC) 40 mg capsule Take 1 capsule by mouth two times a day. Take 30 min before breakfast and dinner albuterol HFA (PROAIR HFA) 90 mcg/actuation inhaler Inhale 2 Puffs as instructed every 4 hours as needed. naproxen (NAPROSYN) 500 mg tablet Take 1 tablet by mouth three times a day with meals. Take with food. fluticasone (FLONASE) 50 mcg/actuation nasal spray Use 1 [place] in each nostril daily at bedtime. montelukast (SINGULAIR) 10 mg tablet Take 1 tablet by mouth daily at bedtime. amino acids (BCAA ORAL) Take by mouth once daily. cetirizine (ZYRTEC) 10 mg tablet Take 10 mg by mouth once daily. sertraline (ZOLOFT) 100 mg tablet Take 1 tablet by mouth once daily. Naproxen Sodium 550 mg tablet Take 550 mg by mouth two times a day with meals. aspirin, enteric coated (ASPIRIN, ENTERIC COATED) 81 mg EC tablet Take 81 mg by mouth once daily. (Patient not taking: Reported on 06/26/2024) cyclobenzaprine (FLEXERIL) 10 mg tablet Take 1 tablet by mouth three times a day as needed for muscle spasm. (Patient not taking: Reported on 06/26/2024) oxyCODONE-acetaminophen (PERCOCET) 5-325 mg tablet (Patient not taking: Reported on 11/05/2024) budesonide (PULMICORT) 0.5 mg/2 mL nebulizer solution For eosinophilic esophagitis. Mix 4 respules with 5 packs of Splenda and swallow daily. Do not eat or drink for 30 minutes after (Patient not taking: Reported on 12/02/2023) No current facility-administered medications on file prior to visit. Social History Social History Tobacco Use Smoking status: Never Smokeless tobacco: Never Vaping Use Vaping status: Never Used Sub (more content not included)... Normal [facility] Office Visit Reporton 2024 Office Visit Report [facility] [address] [place] [address] OFFICE VISIT Date of Service: 08/28/24 MR#: [id number] Acct: [id number] Patient: CARL GROSS GENE Rep #: [id number] : 1985 Provider: NEO Epps Age/Sex: 39/M Location: [facility] Status: Signed Intake Vital Signs 07/11/24 18:09 Height 6 ft 1 in Intake Visit Reasons: PE/NON DOT/DRUG SCREEN/PRC [place] Chief Complaint: Left hand laceration Allergies bee venom protein (honey bee) Allergy (Verified 07/11/24 18:09) Anaphylaxis Cyanoacrylates Allergy (Verified 07/11/24 18:09) Rash Office Procedures [facility] Billing Sheet Testing Pre-Employment Drug Screen: Yes 09/19/24 1141 Date Davon Bargerignlarry Signature: Date (if applicable) CC: [facility] [place] 09-18-2024 [place] Telephone (FAMPWS) GINNYCARL Annamarie ([id number]) 1985 M Date Time Provider Department 09/18[facility]24 [facility] During your visit today, we recorded the following information about you: Clarissa Nevarez LPN 09/18/2024 10:48 AM Signed Flypeeps message: I went to the hospital early Tuesday morning for left knee pain. I had sprained my MCL Tuesday afternoon. They put me on five days of oxy and I was wondering if I would be able to get a renewal on that to get me by until I see my doctor. Simba Horton DO 09/18/2024 2:41 PM Signed They won't let us refill narcotics from EMERGENCY DEPARTMENT unless patient has a virtual or office appt Okay with DO Suzy Cramer [place], MA 09/18/2024 2:43 PM Signed Left message to return call PAM Rodrigues Laurie Lynn, LPN 09/18/2024 4:46 PM Signed Spoke with pt and information listed below given. 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 ER FU scheduled and then he can discuss medications. Pricilla Hatfield LPN Allergies As of Date: 09/18/2024 Noted Allergy Reaction BEE STING 09/22/2012 7 - Swelling Comments: Local swelling and shortness of breath DERMABOND (2-OCTYL CYANOACRYLATE) 12/01/2020 2 - Rash Date Reviewed: 07/25/2024 Reviewed by: Nicole Bob LPN - Fully Assessed Reason for Visit: Refill Request [94] Prescriptions as of 09/18/2024 - dupilumab (DUPIXENT PEN) 300 mg/2 mL pen injection Inject 300 mg subcutaneously one time a week. For eosinophilic esophagitis; ICD10 = K20.0 - traZODone (DESYREL) 100 mg tablet Take 1-2 tablets by mouth daily at bedtime. - sertraline (ZOLOFT) 100 mg tablet Take 1 tablet by mouth once daily. - EPINEPHrine (EPIPEN) 0.3 mg/0.3 mL auto-injector Inject at onset of bee venom sting - omeprazole (PRILOSEC) 40 mg capsule Take 1 capsule by mouth two times a day. Take 30 min before breakfast and dinner - Naproxen Sodium 550 mg tablet Take 550 mg by mouth two times a day with meals. - aspirin, enteric coated (ASPIRIN, ENTERIC COATED) 81 mg EC tablet Take 81 mg by mouth once daily. - albuterol HFA (PROAIR HFA) 90 mcg/actuation inhaler Inhale 2 Puffs as instructed every 4 hours as needed. - naproxen (NAPROSYN) 500 mg tablet Take 1 tablet by mouth three times a day with meals. Take with food. - cyclobenzaprine (FLEXERIL) 10 mg tablet Take 1 tablet by mouth three times a day as needed for muscle spasm. - oxyCODONE-acetaminophen (PERCOCET) 5-325 mg tablet - allopurinol (ZYLOPRIM) 100 mg tablet Take 1 tablet by mouth once daily. For gout. - budesonide (PULMICORT) 0.5 mg/2 mL nebulizer solution For eosinophilic esophagitis. Mix 4 respules with 5 packs of Splenda and swallow daily. Do not eat or drink for 30 minutes after - fluticasone (FLONASE) 50 mcg/actuation nasal spray Use 1 [place] in each nostril daily at bedtime. - montelukast (SINGULAIR) 10 mg tablet Take 1 tablet by mouth daily at bedtime. - amino acids (BCAA ORAL) Take by mouth once daily. - cetirizine (ZYRTEC) 10 mg tablet Take 10 mg by mouth once daily. Problem List As Of Date 09/18/2024 Noted Resolved Palpitations [R00.2] Well adult exam [Z00.00] Seasonal allergies [J30.2] Food impaction of esophagus [T18.128A, W44.F3XA]05/20/2018 Obesity, Class I, BMI 30-34.9 [E66.811] 05/20/2018 Idiopathic gout involving toe [M10.079] 08/13/2019 Wheezes [R06.2] 08/13/2019 RUQ pain [R10.11] 11/19/2020 11/19/2020 Acute esophagitis [K20.90] 01/21/2021 01/21/2021 Esophageal dysphagia [R13.19] 05/25/2021 Eosinophilic esophagitis [K20.0] 05/25/2021 Abdominal pain [R10.9] 05/25/2021 Dysthymia [F34.1] 02/03/2022 THA (generalized anxiety disorder) [F41.1] 02/03/2022 Allergic rhinitis due to allergen [J30.9] 02/03/2022 Acute pain of right shoulder [M25.511] 02/03/2022 Acute right-sided low back pain with right-side*02/03/2022 GERD without esophagitis [K21.9] 02/03/2022 Bunion of great toe of left foot [M21.612] 04/26/2023 Chronic pain of both shoulders [M25.511, G89.29*04/26/2023 Chronic gout of multiple sites [M1A.09X0] 04/26/2023 Acute esophagitis [K20.90] 04/26/2023 Asthma [J45.909] Bloating [R14.0] 05/01/2024 Situational insomnia [F51.09] 05/01/2024 Situational anxiety [F41.8] 07/25/2024 Loose stools [R19.5] 07/25/2024 Situational depression [F43.21] 07/25/2024 Encounter Status:Closed by PRICILLA HATFIELD [facility] ([id number]) 1985 M Date Time Provider Department 09/18/24 SIMBA HORTON 4CQ During your visit today, we recorded the following information about you: Maria De Jesus Mcfarland 09/18/2024 4:53 PM Addendum Pt transferred to this pss to schedule H f/u for medication. Pt was advised insurance was OON. Pt stated he would have new insurance as of and wanted to wait till new insurance was in affect. Pt would call back after Sep 29 to update ins and schedule appt. Shelly Broderick APRN.KVNG 09/19/2024 12:32 PM Signed Noted. Thank you, Shelly Broderick APRN.EMERY GRINDER Allergies As of Date: 09/18/2024 Noted Allergy Reaction BEE STING 09/22/2012 7 - Swelling Comments: Local swelling and shortness of breath DERMABOND (2-OCTYL CYANOACRYLATE) 12/01/2020 2 - Rash Date Reviewed: 07/25/2024 Reviewed by: Nicole Bob LPN - Fully Assessed Reason for Visit: FYI regarding Hosp f/u appt [Other] Prescriptions as of 09/19/2024 - dupilumab (DUPIXENT PEN) 300 mg/2 mL pen injection Inject 300 mg subcutaneously one time a week. For eosinophilic esophagitis; ICD10 = K20.0 - traZODone (DESYREL) 100 mg tablet Take 1-2 tablets by mouth daily at bedtime. - sertraline (ZOLOFT) 100 mg tablet Take 1 tablet by mouth once daily. - EPINEPHrine (EPIPEN) 0.3 mg/0.3 mL auto-injector Inject at onset of bee venom sting - omeprazole (PRILOSEC) 40 mg capsule Take 1 capsule by mouth two times a day. Take 30 min before breakfast and dinner - Naproxen Sodium 550 mg tablet Take 550 mg by mouth two times a day with meals. - aspirin, enteric coated (ASPIRIN, ENTERIC COATED) 81 mg EC tablet Take 81 mg by mouth once daily. - albuterol HFA (PROAIR HFA) 90 mcg/actuation inhaler Inhale 2 Puffs as instructed every 4 hours as needed. - naproxen (NAPROSYN) 500 mg tablet Take 1 tablet by mouth three times a day with meals. Take with food. - cyclobenzaprine (FLEXERIL) 10 mg tablet Take 1 tablet by mouth three times a day as needed for muscle spasm. - oxyCODONE-acetaminophen (PERCOCET) 5-325 mg tablet - allopurinol (ZYLOPRIM) 100 mg tablet Take 1 tablet by mouth once daily. For gout. - budesonide (PULMICORT) 0.5 mg/2 mL nebulizer solution For eosinophilic esophagitis. Mix 4 respules with 5 packs of Splenda and swallow daily. Do not eat or drink for 30 minutes after - fluticasone (FLONASE) 50 mcg/actuation nasal spray Use 1 [place] in each nostril daily at bedtime. - montelukast (SINGULAIR) 10 mg tablet Take 1 tablet by mouth daily at bedtime. - amino acids (BCAA ORAL) Take by mouth once daily. - cetirizine (ZYRTEC) 10 mg tablet Take 10 mg by mouth once daily. Problem List As Of Date 09/18/2024 Noted Resolved Palpitations [R00.2] Well adult exam [Z00.00] Seasonal allergies [J30.2] Food impaction of esophagus [T18.128A, W44.F3XA]05/20/2018 Obesity, Class I, BMI 30-34.9 [E66.811] 05/20/2018 Idiopathic gout involving toe [M10.079] 08/13/2019 Wheezes [R06.2] 08/13/2019 RUQ pain [R10.11] 11/19/2020 11/19/2020 Acute esophagitis [K20.90] 01/21/2021 01/21/2021 Esophageal dysphagia [R13.19] 05/25/2021 Eosinophilic esophagitis [K20.0] 05/25/2021 Abdominal pain [R10.9] 05/25/2021 Dysthymia [F34.1] 02/03/2022 HTA (generalized anxiety disorder) [F41.1] 02/03/2022 Allergic rhinitis due to allergen [J30.9] 02/03/2022 Acute pain of right shoulder [M25.511] 02/03/2022 Acute right-sided low back pain with right-side*02/03/2022 GERD without esophagitis [K21.9] 02/03/2022 Bunion of great toe of left foot [M21.612] 04/26/2023 Chronic pain of both shoulders [M25.511, G89.29*04/26/2023 Chronic gout of multiple sites [M1A.09X0] 04/26/2023 Acute esophagitis [K20.90] 04/26/2023 Asthma [J45.909] Bloating [R14.0] 05/01/2024 Situational insomnia [F51.09] 05/01/2024 Situational anxiety [F41.8] 07/25/2024 Loose stools [R19.5] 07/25/2024 Situational depression [F43.21] 07/25/2024 Encounter Status:Closed by SHELLY BRODERICK on 09/19/24 Normal [facility] Emergency Department Summary on 09-16-2024 Emergency Department Summary [facility] Medical Records Department [address] [place] [id number] Emergency Department Summary 09/16/24 MR#: [id number] Acct: [id number] Name: CARL GROSS Rep #: [id number] : 1985 39 From: Fritz Beasley DO PCP: Dr. Simba Horton DO Status:DEP ER Location: ED HPI History of Present Illness Chief Complaint: Lower Extremity Injury Informant: patient and spouse/S.O. Narrative Narrative: Patient is a 39-year-old male with past medical history of of gout and asthma. He states roughly 12 hours ago he was kneeling on the ground and he twisted. He states his knee turned but not his foot and he felt a pop and had pain after this motion. He states he was able to get up and ambulate and felt that if he just rested throughout the day the pain would improve. However he states the pain is worsening and has had increased swelling and with concern for internal injury presents for evaluation [facility] Medical History Gout Asthma Home Medications ???Medication ???Instructions ???Recorded ???Last Taken ???Type naproxen sodium 550 mg tablet 550 mg PO BID 07/11/24 Unknown History oxycodone 5 mg tablet 5 mg PO Q6H PRN pain 3 days #12 09/16/24 Unknown Rx tabs Allergy/AdvReac Type Severity Reaction Status Date / Time bee venom protein (honey bee) Allergy Anaphylaxis Verified 07/11/24 18:09 Cyanoacrylates Allergy Rash Verified 07/11/24 18:09 Surgical History H/O medial meniscus repair of right knee History of esophagogastroduodenoscopy (EGD) Social History household members: spouse current occupational status: employed Smoking Status: Never smoker alcohol intake: never ROS ROS ED Constitutional Constitutional ED: Denies chills or fever(s) ENT ENT ED: Denies sore throat Cardiovascular Cardiovascular: Denies chest pain Respiratory/Chest Respiratory/Chest: Denies cough or dyspnea Gastrointestinal Gastrointestinal: Denies abdominal pain, diarrhea, nausea or vomiting Musculoskeletal Musculoskeletal: Reports other Details: Positive left knee pain Integumentary Denies Abrasions or rash Neurologic Neurologic: Denies headache(s), paresthesias or weakness Hematologic/Lymphatic Hematologic/Lymphatic: Denies easy bleeding or easy bruising EXAM Physical Exam Const Vital Signs: 09/15/24 23:46 09/16/24 02:01 Temperature 97.9 F 98.6 F Temperature Source Oral Pulse Rate 76 71 Respiratory Rate 16 18 Blood Pressure 136/92 H 128/84 H Blood Pressure Mean 106 98 Pulse Ox 98 99 Oxygen Delivery Method Room Air Positive well nourished and well developed General Appearance ED: well developed HEENT HEENT Narrative: Normocephalic atraumatic Eyes PERRL and EOMs intact bilaterally General Eye ED: Negative for scleral icterus Neck supple Resp normal respiratory effort and clear to auscultation bilaterally Cardio regular rate and regular rhythm Extremity Extremity Narrative: Left lower extremity is neurovascularly intact. Patient has mild soft tissue swelling with faint joint effusion to the anterior aspect of the left knee. There is no obvious deformity noted. Patellar tendon is intact. There is mild laxity of the left MCL compared to right indicating a grade 2 sprain. No abrasions or ecchymosis noted Remainder of the exam is normal Neuro oriented x3, CN's II-XII intact bilaterally and no sensory deficits noted Sensorium / Orientation: alert Psych mental status grossly normal Skin no rashes or lesions noted and no wounds MDM MDM MDM Narrative Medical decision making narrative: Patient arrived to the ER with stable vitals and reported a mechanical injury to his left knee with a twisting motion. Differential diagnosis is for patellar fracture versus tibial plateau fracture versus patellar tendon/quadriceps tendon rupture versus ligament sprain or tear. In order to rule out a potential fracture such as patellar or tibial plateau an x-ray was obtained. This revealed no acute bony injury and did show mild joint effusion. By exam there is mild laxity of his left MCL compared to right indicating a grade 2 sprain. However he is close he is neurovascular intact he does not have physical exam findings to suggest infection or DVT and therefore there is no need for further workup and he can follow-up with orthopedics as an outpatient and is otherwise safe for discharge History Record Review Discussion w/independent historian: Patient and Significant other Radiography Diagnostic Testing: X-ray of the left knee as interpreted by the emergency medicine physician reveals no acute fracture or dislocation but there is a small joint eff (more content not included)... Normal [facility] Knee 4 or More Viewson 09-16 Knee 4 or More Views [facility] Imaging Services [address] [place] [id number] Knee 4 or More Views MR#: [id number] Acct: [id number] Name: CARL GROSS GENE Rep #: [id number] : 1985 M 39 From: Daljit ambriz MD PCP: Dr. Simba Horton DO Status: DEP ER Study: Knee 4 or More Views Date of Exam: 09/16/24 Exam# [id number] Ordering Dr: Fritz Beasley DO :[id number] EXAM: XR LEFT KNEE COMPLETE, 4 OR MORE VIEWS CLINICAL INDICATION: pain TECHNIQUE: Four or more views of the left knee. COMPARISON: Right knee radiographs of 04/08/2024. No comparisons left knee radiographs. FINDINGS: BONES/JOINTS: Unremarkable. No acute fracture. No subluxation. Normal alignment. Preservation of the joint space. No sclerotic or destructive changes observed. SOFT TISSUES: Small suprapatellar knee effusion. No opaque foreign body. RAD/Knee 4 or More Views IMPRESSION: Small knee effusion. No acute osseous abnormality. Electronically Signed: Daljit Benavides MD at 5:05 EST , CC: Dr. Simba Horton DO; Fritz Beasley DO Comparator Operator: Signed [facility] 08-27-2024 [facility] Telephone (FAMPWS) CARL GROSS ([id number]) 1985 Date Time Provider Department 08/27/24 SIMBA HORTON [facility] During your visit today, we recorded the following information about you: Simba Horton DO 08/27/2024 11:49 AM Signed The following approved medication requests have been transmitted electronically. Requested Prescriptions Signed Prescriptions Disp Refills amoxicillin-clavulanate potassium (AUGMENTIN) 875-125 mg per tablet 20 tablet 0 Sig: Take 1 tablet by mouth two times a day for 10 days. Authorizing Provider: SIMBA HORTON DO Allergies As of Date: 08/27/2024 Noted Allergy Reaction BEE STING 09/22/2012 7 - Swelling Comments: Local swelling and shortness of breath DERMABOND (2-OCTYL CYANOACRYLATE) 12/01/2020 2 - Rash Date Reviewed: 07/25/2024 Reviewed by: Nicole Bob LPN - Fully Assessed Order(s):[] amoxicillin-clavulanate potassium (AUGMENTIN) 875-125 mg per tabletTake 1 tablet by mouth two times a day for 10 days.Disp: 20 tabletRfl: 0 Prescriptions as of 11/16/2024 - ALPRAZolam (XANAX) 0.25 mg tablet Take 1 tablet by mouth as needed for up to 30 days. - traZODone (DESYREL) 100 mg tablet Take 1-2 tablets by mouth daily at bedtime. - allopurinol (ZYLOPRIM) 100 mg tablet Take 1 tablet by mouth once daily. For gout. - dupilumab (DUPIXENT PEN) 300 mg/2 mL pen injection Inject 300 mg subcutaneously one time a week. For eosinophilic esophagitis; ICD10 = K20.0 - sertraline (ZOLOFT) 100 mg tablet Take 1 tablet by mouth once daily. - EPINEPHrine (EPIPEN) 0.3 mg/0.3 mL auto-injector Inject at onset of bee venom sting - omeprazole (PRILOSEC) 40 mg capsule Take 1 capsule by mouth two times a day. Take 30 min before breakfast and dinner - Naproxen Sodium 550 mg tablet Take 550 mg by mouth two times a day with meals. - aspirin, enteric coated (ASPIRIN, ENTERIC COATED) 81 mg EC tablet Take 81 mg by mouth once daily. - albuterol HFA (PROAIR HFA) 90 mcg/actuation inhaler Inhale 2 Puffs as instructed every 4 hours as needed. - naproxen (NAPROSYN) 500 mg tablet Take 1 tablet by mouth three times a day with meals. Take with food. - cyclobenzaprine (FLEXERIL) 10 mg tablet Take 1 tablet by mouth three times a day as needed for muscle spasm. - oxyCODONE-acetaminophen (PERCOCET) 5-325 mg tablet - fluticasone (FLONASE) 50 mcg/actuation nasal spray Use 1 [place] in each nostril daily at bedtime. - montelukast (SINGULAIR) 10 mg tablet Take 1 tablet by mouth daily at bedtime. - amino acids (BCAA ORAL) Take by mouth once daily. - cetirizine (ZYRTEC) 10 mg tablet Take 10 mg by mouth once daily. Problem List As Of Date 08/27/2024 Noted Resolved Palpitations [R00.2] Well adult exam [Z00.00] Seasonal allergies [J30.2] Food impaction of esophagus [T18.128A, W44.F3XA]05/20/2018 Obesity, Class I, BMI 30-34.9 [E66.811] 05/20/2018 Idiopathic gout involving toe [M10.079] 08/13/2019 Wheezes [R06.2] 08/13/2019 RUQ pain [R10.11] 11/19/2020 11/19/2020 Acute esophagitis [K20.90] 01/21/2021 01/21/2021 Esophageal dysphagia [R13.19] 05/25/2021 Eosinophilic esophagitis [K20.0] 05/25/2021 Abdominal pain [R10.9] 05/25/2021 Dysthymia [F34.1] 02/03/2022 THA (generalized anxiety disorder) [F41.1] 02/03/2022 Allergic rhinitis due to allergen [J30.9] 02/03/2022 Acute pain of right shoulder [M25.511] 02/03/2022 Acute right-sided low back pain with right-side*02/03/2022 GERD without esophagitis [K21.9] 02/03/2022 Bunion of great toe of left foot [M21.612] 04/26/2023 Chronic pain of both shoulders [M25.511, G89.29*04/26/2023 Chronic gout of multiple sites [M1A.09X0] 04/26/2023 Acute esophagitis [K20.90] 04/26/2023 Asthma [J45.909] Bloating [R14.0] 05/01/2024 Situational insomnia [F51.09] 05/01/2024 Situational anxiety [F41.8] 07/25/2024 Loose stools [R19.5] 07/25/2024 Situational depression [F43.21] 07/25/2024 Prescriptions ordered this encounter Disp Refills Start End AMOXICILLIN 875 MG-POTASSIUM CLAVULA* 20 t* 0 08/27/2024 09/06/2024 Class: Print RX Route: ORAL Sig: Take 1 tablet by mouth two times a day for 10 days. Encounter Status:Closed by TUAN PUENTES on 11/16/24 [facility] [place] 08-24-2024 [facility] Telephone (KAL) CARL GROSS ([id number]) 1985 Date Time Provider Department 08/24/24 ROBI HENDRICKSON During your visit today, we recorded the following information about you: Falguni Moralez 08/24/2024 3:38 PM Signed [employer]eds fax requesting Dupixent prior authorization, scanned in [employer] Separate fax received from [facility] Specialty to notify office the prior authorization has to be submitted via [employer] [facility] [phone] Mady Hatfield RN 08/28/2024 2:10 PM Signed PA submitted via [employer] Dena Miguel 08/31/2024 1:43 PM Signed [employer] sent notice that Dupixent Pen was APPROVED from 08/30/24 to 08/30/25. See scanned letter in chart. Allergies As of Date: 08/24/2024 Noted Allergy Reaction BEE STING 09/22/2012 7 - Swelling Comments: Local swelling and shortness of breath DERMABOND (2-OCTYL CYANOACRYLATE) 12/01/2020 2 - Rash Date Reviewed: 07/25/2024 Reviewed by: Nicole Bob LPN - Fully Assessed Reason for Visit: Medication Problem [65] Cmt: Duxpixent Prescriptions as of 08/31/2024 - amoxicillin-clavulanate potassium (AUGMENTIN) 875-125 mg per tablet Take 1 tablet by mouth two times a day for 10 days. - dupilumab (DUPIXENT PEN) 300 mg/2 mL pen injection Inject 300 mg subcutaneously one time a week. - traZODone (DESYREL) 100 mg tablet Take 1-2 tablets by mouth daily at bedtime. - sertraline (ZOLOFT) 100 mg tablet Take 1 tablet by mouth once daily. - EPINEPHrine (EPIPEN) 0.3 mg/0.3 mL auto-injector Inject at onset of bee venom sting - omeprazole (PRILOSEC) 40 mg capsule Take 1 capsule by mouth two times a day. Take 30 min before breakfast and dinner - Naproxen Sodium 550 mg tablet Take 550 mg by mouth two times a day with meals. - aspirin, enteric coated (ASPIRIN, ENTERIC COATED) 81 mg EC tablet Take 81 mg by mouth once daily. - albuterol HFA (PROAIR HFA) 90 mcg/actuation inhaler Inhale 2 Puffs as instructed every 4 hours as needed. - naproxen (NAPROSYN) 500 mg tablet Take 1 tablet by mouth three times a day with meals. Take with food. - cyclobenzaprine (FLEXERIL) 10 mg tablet Take 1 tablet by mouth three times a day as needed for muscle spasm. - oxyCODONE-acetaminophen (PERCOCET) 5-325 mg tablet - allopurinol (ZYLOPRIM) 100 mg tablet Take 1 tablet by mouth once daily. For gout. - budesonide (PULMICORT) 0.5 mg/2 mL nebulizer solution For eosinophilic esophagitis. Mix 4 respules with 5 packs of Splenda and swallow daily. Do not eat or drink for 30 minutes after - fluticasone (FLONASE) 50 mcg/actuation nasal spray Use 1 [place] in each nostril daily at bedtime. - montelukast (SINGULAIR) 10 mg tablet Take 1 tablet by mouth daily at bedtime. - amino acids (BCAA ORAL) Take by mouth once daily. - cetirizine (ZYRTEC) 10 mg tablet Take 10 mg by mouth once daily. Problem List As Of Date 08/24/2024 Noted Resolved Palpitations [R00.2] Well adult exam [Z00.00] Seasonal allergies [J30.2] Food impaction of esophagus [T18.128A, W44.F3XA]05/20/2018 Obesity, Class I, BMI 30-34.9 [E66.811] 05/20/2018 Idiopathic gout involving toe [M10.079] 08/13/2019 Wheezes [R06.2] 08/13/2019 RUQ pain [R10.11] 11/19/2020 11/19/2020 Acute esophagitis [K20.90] 01/21/2021 01/21/2021 Esophageal dysphagia [R13.19] 05/25/2021 Eosinophilic esophagitis [K20.0] 05/25/2021 Abdominal pain [R10.9] 05/25/2021 Dysthymia [F34.1] 02/03/2022 THA (generalized anxiety disorder) [F41.1] 02/03/2022 Allergic rhinitis due to allergen [J30.9] 02/03/2022 Acute pain of right shoulder [M25.511] 02/03/2022 Acute right-sided low back pain with right-side*02/03/2022 GERD without esophagitis [K21.9] 02/03/2022 Bunion of great toe of left foot [M21.612] 04/26/2023 Chronic pain of both shoulders [M25.511, G89.29*04/26/2023 Chronic gout of multiple sites [M1A.09X0] 04/26/2023 Acute esophagitis [K20.90] 04/26/2023 Asthma [J45.909] Bloating [R14.0] 05/01/2024 Situational insomnia [F51.09] 05/01/2024 Situational anxiety [F41.8] 07/25/2024 Loose stools [R19.5] 07/25/2024 Situational depression [F43.21] 07/25/2024 Encounter Status:Closed by FALGUNI MORALEZ on 08/24/24 [facility] ([id number]) 1985 M Date Time Provider Department 08/13/24 SIMBA HORTON [facility] During your visit today, we recorded the following information about you: Simba Horton, 08/13/2024 7:47 AM Signed Please inform patient that all his stool studies are normal appearing DO Jethro Novoa Dena Atul, ANGELES 08/13/2024 11:53 AM Signed Left message to return call. Usha Rojas MA 08/15/2024 3:59 PM Signed Left message for patient to contact office. PAM Nina Beth, LPN 08/15/2024 4:06 PM Signed Patient returned call and went over results from Dr Horton with understanding. Allergies As of Date: 08/13/2024 Noted Allergy Reaction BEE STING 09/22/2012 7 - Swelling Comments: Local swelling and shortness of breath DERMABOND (2-OCTYL CYANOACRYLATE) 12/01/2020 2 - Rash Date Reviewed: 07/25/2024 Reviewed by: Nicole Bob LPN - Fully Assessed Reason for Visit: Results [95] Prescriptions as of 08/15/2024 - dupilumab (DUPIXENT PEN) 300 mg/2 mL pen injection Inject 300 mg subcutaneously one time a week. - traZODone (DESYREL) 100 mg tablet Take 1-2 tablets by mouth daily at bedtime. - sertraline (ZOLOFT) 100 mg tablet Take 1 tablet by mouth once daily. - EPINEPHrine (EPIPEN) 0.3 mg/0.3 mL auto-injector Inject at onset of bee venom sting - omeprazole (PRILOSEC) 40 mg capsule Take 1 capsule by mouth two times a day. Take 30 min before breakfast and dinner - Naproxen Sodium 550 mg tablet Take 550 mg by mouth two times a day with meals. - aspirin, enteric coated (ASPIRIN, ENTERIC COATED) 81 mg EC tablet Take 81 mg by mouth once daily. - albuterol HFA (PROAIR HFA) 90 mcg/actuation inhaler Inhale 2 Puffs as instructed every 4 hours as needed. - naproxen (NAPROSYN) 500 mg tablet Take 1 tablet by mouth three times a day with meals. Take with food. - cyclobenzaprine (FLEXERIL) 10 mg tablet Take 1 tablet by mouth three times a day as needed for muscle spasm. - oxyCODONE-acetaminophen (PERCOCET) 5-325 mg tablet - allopurinol (ZYLOPRIM) 100 mg tablet Take 1 tablet by mouth once daily. For gout. - budesonide (PULMICORT) 0.5 mg/2 mL nebulizer solution For eosinophilic esophagitis. Mix 4 respules with 5 packs of Splenda and swallow daily. Do not eat or drink for 30 minutes after - fluticasone (FLONASE) 50 mcg/actuation nasal spray Use 1 [place] in each nostril daily at bedtime. - montelukast (SINGULAIR) 10 mg tablet Take 1 tablet by mouth daily at bedtime. - amino acids (BCAA ORAL) Take by mouth once daily. - cetirizine (ZYRTEC) 10 mg tablet Take 10 mg by mouth once daily. Problem List As Of Date 08/13/2024 Noted Resolved Palpitations [R00.2] Well adult exam [Z00.00] Seasonal allergies [J30.2] Food impaction of esophagus [T18.128A, W44.F3XA]05/20/2018 Obesity, Class I, BMI 30-34.9 [E66.811] 05/20/2018 Idiopathic gout involving toe [M10.079] 08/13/2019 Wheezes [R06.2] 08/13/2019 RUQ pain [R10.11] 11/19/2020 11/19/2020 Acute esophagitis [K20.90] 01/21/2021 01/21/2021 Esophageal dysphagia [R13.19] 05/25/2021 Eosinophilic esophagitis [K20.0] 05/25/2021 Abdominal pain [R10.9] 05/25/2021 Dysthymia [F34.1] 02/03/2022 THA (generalized anxiety disorder) [F41.1] 02/03/2022 Allergic rhinitis due to allergen [J30.9] 02/03/2022 Acute pain of right shoulder [M25.511] 02/03/2022 Acute right-sided low back pain with right-side*02/03/2022 GERD without esophagitis [K21.9] 02/03/2022 Bunion of great toe of left foot [M21.612] 04/26/2023 Chronic pain of both shoulders [M25.511, G89.29*04/26/2023 Chronic gout of multiple sites [M1A.09X0] 04/26/2023 Acute esophagitis [K20.90] 04/26/2023 Asthma [J45.909] Bloating [R14.0] 05/01/2024 Situational insomnia [F51.09] 05/01/2024 Situational anxiety [F41.8] 07/25/2024 Loose stools [R19.5] 07/25/2024 Situational depression [F43.21] 07/25/2024 Encounter Status:Closed by CHRISTY TEE on 08/15/24 [facility] CNOVon 07-25-2024 CNOV Office Visit (FAMPWS ) GINNYCARL G ([id number]) 1985 Date Time Provider Department 07/25/24 1:20 PM [facility] your visit today, we recorded the following information about you: Temperature Pulse Respiration Blood pressure 97.7 degrees 88/minute 16/minute 138/80 Weight 114 kg Simba Horton, 07/25/2024 2:29 PM Signed CC: Carl Gross is a 39 year old male who presents to the office for follow up HPI: Previously he was struggling with falling asleep and staying asleep. Thinks it may be pain related - has been struggling to sleep since he had his first knee surgery in November. Has been trying over the counter medication- melatonin and magnesium and benadryl. He was started on trazodone and has been taking this intermittently with benefit Willing to have fasting labs drawn THA, stable, taking sertraline and prn alprazolam. Does admit to increased depression symptoms though- he was recently let go from his job and trying to find another job. He is home more so eating a poor diet now at times Right knee recent surgery with meniscectomy and cartilage repair. He is walking better with less limping, using crutches and having some post operative expected pain. No fevers or chills. No falls. 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 Will be likely having left foot surgery to fuse 1st MTP [address] Dr. Kimbrough [facility] [employer] in [place] Intermittent bloating, + stools are falling apart and loose, the stools are greasy and floating, hx of eosinophilic esophagitis. PAST MEDICAL HISTORY Diagnosis Date Acute right-sided back pain with sciatica Arthritis Asthma Awareness under anesthesia Dysthymia 02/03/2022 Eosinophilic esophagitis THA (generalized anxiety disorder) Generalized anxiety disorder Obstructive sleep apnea Palpitations Seasonal allergies Well adult exam PAST SURGICAL HISTORY Procedure Laterality Date ABDOMINAL SURGERY HX APPENDECTOMY HX 2020 COLONOSCOPY 01/21/2021 EGD 10/22/2020 Active esophagitis with increased intraepithelial eosinophils,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 EGD 01/21/2021 PAST SURGICAL HISTORY OF 02/2012 left foot surgery PAST SURGICAL HISTORY OF 2009 repair tendon right hand PAST SURGICAL HISTORY OF 05/2018 Throat PAST SURGICAL HISTORY OF Right 12/05/2023 arthroscopic knee- meniscus repair SINUS SURGERY HX 2016 Current Outpatient Medications Medication Sig traZODone (DESYREL) 100 mg tablet Take 1-2 tablets by mouth daily at bedtime. sertraline (ZOLOFT) 100 mg tablet Take 1 tablet by mouth once daily. ALPRAZolam (XANAX) 0.25 mg tablet Take 1 tablet by mouth three times a day as needed for up to 10 days. EPINEPHrine (EPIPEN) 0.3 mg/0.3 mL auto-injector Inject at onset of bee venom sting omeprazole (PRILOSEC) 40 mg capsule Take 1 capsule by mouth two times a day. Take 30 min before breakfast and dinner Naproxen Sodium 550 mg tablet Take 550 mg by mouth two times a day with meals. aspirin, enteric coated (ASPIRIN, ENTERIC COATED) 81 mg EC tablet Take 81 mg by mouth once daily. (Patient not taking: Reported on 06/26/2024) albuterol HFA (PROAIR HFA) 90 mcg/actuation inhaler Inhale 2 Puffs as instructed every 4 hours as needed. naproxen (NAPROSYN) 500 mg tablet Take 1 tablet by mouth three times a day with meals. Take with food. cyclobenzaprine (FLEXERIL) 10 mg tablet Take 1 tablet by mouth three times a day as needed for muscle spasm. (Patient not taking: Reported on 06/26/2024) dupilumab (DUPIXENT PEN) 300 mg/2 mL pen injection Inject 300 mg subcutaneously one time a week. oxyCODONE-acetaminophen (PERCOCET) 5-325 mg tablet allopurinol (ZYLOPRIM) 100 mg tablet Take 1 tablet by mouth once daily. For gout. budesonide (PULMICORT) 0.5 mg/2 mL nebulizer solution For eosinophilic esophagitis. Mix 4 respules with 5 packs of Splenda and swallow daily. Do not eat or drink for 30 minutes after (Patient not taking: Reported on 12/02/2023) fluticasone (FLONASE) 50 mcg/actuation nasal spray Use 1 [place] in each nostril daily at bedtime. montelukast (SINGULAIR) 10 mg tablet Take 1 tablet by mouth daily at bedtime. amino acids (BCAA ORAL) Take by mouth once daily. cetirizine (ZYRTEC) 10 mg tablet Take 10 mg by mouth once daily. No current facility-administered medications for this visit. ALLERGIES Allergen Reactions Bee Sting Swelling Local swelling and shortness of breath Dermabond [2-Octyl * Rash Social History Tobacco Use Smoking status: Never Smokeless tobacco: Never Vaping Use Vaping status: Never Used Substance Use Topics Alcohol use: Yes Alcohol/week: 5.0 standard drinks of a (more content not included)... Normal [facility] Gastrointestinal pathogens i dentified JOY+probe Nom (Stl)on 07-25-2024 Campylobacter sp DNA JOY+probe Nom (Unsp spec) Not detected Normal Not Detected [facility] Comment on above: Order Comment: Priti holder Type: STOOL SPECIMENOrdering Facility: [facility] Address: [address] [place] [address] Performed By: #### 7 9390-1 ####[facility] LABCLIA [id number] [place] [address] [place] Salmonella sp DNA JOY+probe Ql (Unsp spec) Not detected Normal Not Detected [facility] Comment on above: Order Comment: Speci men Type: STOOL SPECIMENOrdering Facility: [facility] Address: [address] [place] [address] Performed By: #### 7 9390-1 ####[facility] LABCLIA [id number] [place] [address] [place] Shiga toxin stx gene JOY+probe Nom (Unsp spec) Not detected Normal Not Detected [facility] Comment on above: Order Comment: Speci men Type: STOOL SPECIMENOrdering Facility: [facility] Address: [address] [place] [address] Performed By: #### 7 9390-1 ####[facility] LABCLIA [id number] [place] [address] [place] Shigella sp DNA JOY+probe Ql (Unsp spec) Not detected Normal Not Detected [facility] Comment on above: Order Comment: Speci men Type: STOOL SPECIMENOrdering Facility: [facility] Address: [address] [place] [address] Performed By: #### 7 9390-1 ####[facility] LABIA [id number] [place] [address] [place] H pylori Ag Stl Ql IAon 06-30 H. pylori Ag IA Ql (Stl) H.PYLORI EIA RESULT: Negative for Helicobacter pylori antigen by EIA Normal [facility] Comment on above: Performed By: #### 1 7780-8, PANCEF ####[facility] LABCLIA [id number] [place] [address] [place] PANC ELASTASE, FECALon 07-25 ELASTASE INTERPRETATION Normal Normal Normal [facility] Comment on above: Order Comment: Speci men Type: STOOL SPECIMENOrdering Facility: [facility] Address: [address] [place] [address] Performed By: #### 1 7780-8, PANCEF ####[facility] LABCLIA [id number] [address] [place] ELASTASE-1 CONCENTRATION >800 Normal >=200 [facility] Comment on above: Order Comment: Speci men Type: STOOL SPECIMENOrdering Facility: [facility] Address: [address] [place] [address] Result Comment: Inte rpretation: <100 ug/g: Severe Exocrine Pancreatic Insufficiency 100-199 ug/g: Mild to Moderate Exocrine Pancreatic Insufficiency >=200 ug/g: Normal Performed By: #### 1 7780-8, PANCEF ####[facility] LABCLIA [id number] [place] [address] [place] Emergency Department Summary on 07-11-2024 Emergency Department Summary [facility] Medical Records Department [address] [place] [address] Emergency Department Summary 07/11/24 MR#: [id number] Acct: [id number] Name: CARL GROSS GENE Rep #: [id number] : 1985 39 From: Shiv Garcia MD PCP: Dr. Simba Horton, DO Status:REG ER Location: ED HPI History of Present Illness Chief Complaint: Lower Extremity Injury Narrative Narrative: 39-year-old male past history of previous knee surgeries at the [facility] by Dr. Lopez, presents with right lateral knee pain/proximal fibular pain that has had for the past few weeks. He states his pain is worse with weightbearing and walking. His most recent surgery was in March where he had his meniscus cartilage shaved and had chondroplasty. He states that the soonest that his orthopedic surgeon could see him would be Tuesday of next week, 5 days from now. He states that he was sent to the emergency department to rule out a hairline fracture. He denies any fevers or chills. Sometimes he gets nauseated from the pain. No vomiting. No swelling of the knee joint or erythema. [facility] Medical History Gout Asthma Home Medications ???Medication ???Instructions ???Recorded ???Last Taken ???Type naproxen sodium 550 mg tablet 550 mg PO BID 07/11/24 Unknown History Allergy/AdvReac Type Severity Reaction Status Date / Time bee venom protein (honey bee) Allergy Anaphylaxis Verified 07/11/24 18:09 Cyanoacrylates Allergy Rash Verified 07/11/24 18:09 Surgical History H/O medial meniscus repair of right knee History of esophagogastroduodenoscopy (EGD) Social History household members: spouse current occupational status: employed Smoking Status: Never smoker alcohol intake: never ROS ROS ED ROS Narrative Constitutional: No fever, no chills. HEENT: No sore throat. No neck pain. No loss of vision. No rhinorrhea. Cardiovascular: No chest pain. No palpitations. No pedal edema. Respiratory: No cough, no shortness of breath. Abdominal: No abdominal pain. No nausea. No vomiting. Genitourinary: No dysuria. No hematuria. Musculoskeletal: No myalgias. Positive right lateral knee pain/fibular head pain. Neurologic: No headaches. No dizziness. No lightheadedness. Skin: No rash. No change in color. Psychiatric: No depression. No anxiety. EXAM Physical Exam Narrative Exam Narrative: Afebrile. Vital signs noted. Nontoxic-appearing. Focused physical examination reveals mild tenderness to palpation in the area between the fibula proximally and the tibia. He is able to flex and extend his right knee. He does have mild tenderness of the fibular head. No crepitance. Neurovascular intact distally with palpable dorsalis pedis pulse. No calf tenderness or palpable cord. Const Vital Signs: 07/11/24 18:09 07/11/24 20:30 Temperature 97 F L 97.3 F L Temperature Source Temporal Pulse Rate 92 79 Respiratory Rate 18 18 Blood Pressure 143/100 H 135/85 H Blood Pressure Mean 114 101 Pulse Ox 100 96 Oxygen Delivery Method Room Air MDM MDM MDM Narrative Medical decision making narrative: Differential diagnosis includes but not limited to hairline fracture versus muscular strain versus ligamentous/fascial strain. I have very low suspicion for septic arthritis. He is not really having knee pain in the joint itself but more distal to the joint. X-rays were obtained of the right tibia and fibula and 2 views and interpreted by myself independently. I see no evidence of acute fracture. I reviewed the radiology report which confirms my independent interpretation. They do comment on mild soft tissue swelling. He already has a knee brace, and this may be where his brace is rubbing against his right lateral lower leg. I do not feel that ultrasound is indicated for DVT because his pain is on the lateral aspect of his right lower leg below the knee. As there is no evidence of fracture, I feel that he be discharged to follow-up with his orthopedic surgeon. He will continue ice and elevation and orol-eow-dvlncab analgesics at home. He has a pair of crutches at home that he can use as well to help him ambulate. Return instructions were reviewed. Disposition is discharged home in stable condition. History Record Review Discussion w/independent historian: Patient Additional record(s) reviewed:: Prior ED visit (Prior visits for knee pain) Radiography Diagnostic Testing: Clinical Impression(s) from Imaging Studies Tibia/Fibula X-Ray 07/11/24 18:55 IMPRESSION: Mild soft tissue swelling. Degenerative changes. No acute osseous abnormalities. Electronically Signed: Delbert Harper DO at 20:11 EST (more content not included)... Normal [facility] Tibia Fibula 2 Viewson 07-11 Tibia Fibula 2 Views [facility] Imaging Services [address] [place] [address] Tibia Fibula 2 Views MR#: [id number] Acct: [id number] Name: CARL GROSS GENE Rep #: [id number] : 1985 M 39 From: Delbert weiss DO PCP: Dr. Simba Horton DO Status: REG ER Study: Tibia Fibula 2 Views Date of Exam: 07/11/24 Exam# [id number] Ordering Dr: Shiv Garcia MD :[id number] EXAM: XR RIGHT TIBIA AND FIBULA, 2 VIEWS CLINICAL INDICATION: Pain TECHNIQUE: Frontal and lateral views of the right tibia and fibula. COMPARISON: Right knee, 1124. FINDINGS: BONES/JOINTS: Degenerative changes at the knee and minimally at the ankle. Calcaneal spurs and dorsal midfoot spurring. Superior patellar pole enthesophytes. No acute fracture. No subluxation. Normal alignment. No sclerotic or destructive changes observed. SOFT TISSUES: Mild soft tissue swelling. No radiopaque foreign body. RAD/Tibia Fibula 2 Views IMPRESSION: Mild soft tissue swelling. Degenerative changes. No acute osseous abnormalities. Electronically Signed: Delbert Harper DO at 20:11 EST , CC: Dr. Shiv Garcia MD; Dr. Simba Horton DO Comparator Operator: Signed [facility] 06-26-2024 [facility] Office Visit (UCWSTR ) CARL GROSS ([id number]) 1985 M Date Time Provider Department 06/26/24 10:00 AM HANG COLÓN [facility] During your visit today, we recorded the following information about you: Temperature Pulse Respiration Blood pressure 98.1 degrees 74/minute 16/minute 132/88 Weight 114.5 kg Hang Colón APRN.EMERY GRINDER 06/26/2024 10:30 AM Signed CC: Patient presents with: Sinus Problem: sinus pressure, drainage and cough x 3 days HPI: Carl Gross is a 39 year old male who presents to the office with complaint of head congestion, cough, productive, sinus symptoms, and ear symptoms for a few days. Symptoms are staying the same. Associated symptoms includes ear pressure and sore throat. Denies nausea, vomiting , and diarrhea. Treatments tried include nothing so far. with no relief of symptoms. Sick contacts: unknown. History of asthma, frequent episodes of bronchitis, chronic bronchitis, bronchiectasis or COPD: No Smoker: No Seasonal/environmental allergies: No The ROS is otherwise negative. The patient's pmh, medications, allergies, and past visits are reviewed. PHYSICAL EXAM: BP 132/88 Pulse 74 Temp 36.7 ?C (98.1 ?F) Resp 16 Wt 114.5 kg (252 lb 6.8 oz) SpO2 96% BMI 33.30 kg/m? General appearance: alert, cooperative, pleasant, in no acute distress Head: Normocephalic Eyes: EOM's intact, conjunctiva pink and moist, no icterus, sclera white, non-injected Ears: Right ear: External ear/canal- Normal, TM - clear with good landmarks. Left ear: External ear/canal- Normal, TM - clear with good landmarks Oropharynx:moderate erythema, without exudates present Heart: Negative. RRR without obvious murmur, gallop, or rubs. No ectopy. Lungs: mild wheezing on right lower lobe PAST MEDICAL HISTORY Diagnosis Date Acute right-sided back pain with sciatica Arthritis Asthma Awareness under anesthesia Dysthymia 02/03/2022 Eosinophilic esophagitis THA (generalized anxiety disorder) Generalized anxiety disorder Obstructive sleep apnea Palpitations Seasonal allergies Well adult exam PAST SURGICAL HISTORY Procedure Laterality Date ABDOMINAL SURGERY HX APPENDECTOMY HX 2020 COLONOSCOPY 01/21/2021 EGD 10/22/2020 Active esophagitis with increased intraepithelial eosinophils,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 EGD 01/21/2021 PAST SURGICAL HISTORY OF 02/2012 left foot surgery PAST SURGICAL HISTORY OF 2009 repair tendon right hand PAST SURGICAL HISTORY OF 05/2018 Throat PAST SURGICAL HISTORY OF Right 12/05/2023 arthroscopic knee- meniscus repair SINUS SURGERY HX 2016 ALLERGIES Bee Sting and Dermabond [2-Octyl Cyanoacrylate] MEDICATIONS EPINEPHrine (EPIPEN) 0.3 mg/0.3 mL auto-injector Inject at onset of bee venom sting omeprazole (PRILOSEC) 40 mg capsule Take 1 capsule by mouth two times a day. Take 30 min before breakfast and dinner Naproxen Sodium 550 mg tablet Take 550 mg by mouth two times a day with meals. albuterol HFA (PROAIR HFA) 90 mcg/actuation inhaler Inhale 2 Puffs as instructed every 4 hours as needed. naproxen (NAPROSYN) 500 mg tablet Take 1 tablet by mouth three times a day with meals. Take with food. traZODone (DESYREL) 100 mg tablet Take 1-2 tablets by mouth daily at bedtime. oxyCODONE-acetaminophen (PERCOCET) 5-325 mg tablet sertraline (ZOLOFT) 50 mg tablet Take 1 tablet by mouth once daily. dupilumab (DUPIXENT PEN) 300 mg/2 mL pen injection Inject 300 mg subcutaneously one time a week. allopurinol (ZYLOPRIM) 100 mg tablet Take 1 tablet by mouth once daily. For gout. fluticasone (FLONASE) 50 mcg/actuation nasal spray Use 1 [place] in each nostril daily at bedtime. montelukast (SINGULAIR) 10 mg tablet Take 1 tablet by mouth daily at bedtime. amino acids (BCAA ORAL) Take by mouth once daily. cetirizine (ZYRTEC) 10 mg tablet Take 10 mg by mouth once daily. aspirin, enteric coated (ASPIRIN, ENTERIC COATED) 81 mg EC tablet Take 81 mg by mouth once daily. (Patient not taking: Reported on 06/26/2024) cyclobenzaprine (FLEXERIL) 10 mg tablet Take 1 tablet by mouth three times a day as needed for muscle spasm. (Patient not taking: Reported on 06/26/2024) dupilumab (DUPIXENT PEN) 300 mg/2 mL pen injection Inject 300 mg subcutaneously one time a week. dupilumab 300 mg/2 mL subcutaneous syringe (DUPIXENT SYRINGE) Inject 2 mL subcutaneously one time a week. budesonide (PULMICORT) 0.5 mg/2 mL nebulizer solution For eosinophilic esophagitis. Mix 4 respules with 5 packs of Splenda and swallow daily. Do not eat or drink for 30 minutes after (Patient not taking: Reported on 12/02/2023) FAMILY HISTORY Problem Relation Age of Onset (more content not included)... Normal [facility] STREP A MOLECULAR (POC)on Interpretation and review of laboratory results Abnormal [facility] Procedural Control Valid [facility] Strep A (POCT) Positive Abnormal Negative [facility] XR CHEST 2V FRONTAL/LATon XR CHEST 2V FRONTAL/LAT * * *Final Report* * * DATE OF EXAM: Jun 26 2024 10:13AM WOX [id number] - XR CHEST 2V FRONTAL/LAT / PROCEDURE REASON: Acute cough * * * * Physician Interpretation * * * * EXAMINATION: CHEST RADIOGRAPH (2 VIEW FRONTAL and LATERAL) CLINICAL HISTORY: Acute cough MQ: [id number] EXAM DATE/TIME: 06/26/2024 10:13 AM COMPARISON: Chest x-ray dated 12/28/2017 RESULT: Lines, tubes, and devices: None. Lungs and pleura: No consolidation. No lung mass. No pleural effusion. No pneumothorax. Cardiomediastinal silhouette: Normal cardiomediastinal silhouette. Bones and soft tissues: Degenerative changes are present within the thoracic spine. IMPRESSION: No acute radiographic abnormality. Comparator Operator: [facility] Transcribe Date/Time: Jun 26 2024 10:18A Dictated by : SYMONE MONZON MD This examination was interpreted and the report reviewed and electronically signed by: SYMONE MONZON MD on Jun 26 2024 10:18AM EST [id number] Normal [facility] XR Chest PA and Lateralon Radiology Study observation (narrative) [facility] IMPRESSION: No acute radiographic abnormality. Comparator Operator: [facility] Transcribe Date/Time: Jun 26 2024 10:18A Dictated by : SYMONE MONZON MD This examination was interpreted and the report reviewed and electronically signed by: SYMONE MONZON MD on Jun 26 2024 10:18AM EST DIVISION OF RADIOLOGY * * *Final Report* * * DATE OF EXAM: Jun 26 2024 10:13AM WOX [id number] - XR CHEST 2V FRONTAL/LAT / PROCEDURE REASON: Acute cough * * * * Physician Interpretation * * * * EXAMINATION: CHEST RADIOGRAPH (2 VIEW FRONTAL & LATERAL) CLINICAL HISTORY: Acute cough MQ: XC2_6 EXAM DATE/TIME: 06/26/2024 10:13 AM COMPARISON: Chest x-ray dated 12/28/2017 RESULT: Lines, tubes, and devices: None. Lungs and pleura: No consolidation. No lung mass. No pleural effusion. No pneumothorax. Cardiomediastinal silhouette: Normal cardiomediastinal silhouette. Bones and soft tissues: Degenerative changes are present within the thoracic spine. DIVISION OF RADIOLOGY Provider, [facility] - 06/26/2024 * * *Final Report* * * DATE OF EXAM: Jun 26 2024 10:13AM WOX [id number] - XR CHEST 2V FRONTAL/LAT / PROCEDURE REASON: Acute cough * * * * Physician Interpretation * * * * EXAMINATION: CHEST RADIOGRAPH (2 VIEW FRONTAL & LATERAL) CLINICAL HISTORY: Acute cough MQ: XC2_6 EXAM DATE/TIME: 06/26/2024 10:13 AM COMPARISON: Chest x-ray dated 12/28/2017 RESULT: Lines, tubes, and devices: None. Lungs and pleura: No consolidation. No lung mass. No pleural effusion. No pneumothorax. Cardiomediastinal silhouette: Normal cardiomediastinal silhouette. Bones and soft tissues: Degenerative changes are present within the thoracic spine. IMPRESSION IMPRESSION: No acute radiographic abnormality. Comparator Operator: ANALI Transcribe Date/Time: Jun 26 2024 10:18A Dictated by : SYMONE MONZON MD This examination was interpreted and the report reviewed and electronically signed by: SYMONE MONZON MD on Jun 26 2024 10:18AM EST [facility] XR Chest PA and LateralOrder ed By: [facility] Provider on 06-26-2024 [facility] ANES POSTPROC EVALon 024 ANES POSTPROC EVAL HNO ID: [id number] Author: JOANNE ANDERSEN MD Service: ? Author Type: Physician Type: Anesthesia Postprocedure Evaluation Filed: 06/12/2024 08:48 Note Text: POST ANESTHESIA EVALUATION NOTE : 1985 Procedure Summary Date: 06/12/24 Room / Location: Gastroenterology Anesthesia Start: 806 Anesthesia Stop: 829 Procedure: EGD - THERAPEUTIC, EUS, OR TUBE INTERVENTIONS Diagnosis: Eosinophilic esophagitis (Dysphagia) Scheduled Providers: Loraine Da Silva MD; Josi Glynn APRN.SILVERWARE BUFFING MACHINE OPERATOR; Joanne Andersen MD Responsible Provider: Joanne Andersen MD Anesthesia Type: general ASA Status: 2 Anesthesia Type: general Airway Type: supplemental O2 Last Vitals Vitals Value Taken Time BP 106/62 06/12/24 0840 Temp 36.4 ?C (97.5 ?F) 06/12/24 0830 Pulse 74 06/12/24 0846 Resp 16 06/12/24 0840 SpO2 95 % 06/12/24 0846 Vitals shown include unfiled device data. Post Anesthesia Patient Status Patient Evaluation: bedside. Anticipated Disposition: phase 2 then home. Neurological Status: aware and responsive. Pulmonary Status: breathing comfortably on supplemental oxygen Airway Control: returned to baseline unsupported. Cardiovascular Status: stable. Pain Management: clinically adequate - multimodal analgesia pain management approach Postoperative Hydration: acceptable. Intraoperative Events: no significant anesthesia events Post Operative Nausea/Vomiting Status: no significant post operative nausea or vomiting Recommendation: continue current plan of care and further care per PACU/ICU/floor team. Anesthesia Observations No Documentation SIGNATURE: Joanne Andersen MD PATIENT NAME: Carl Gross DATE: June 12, 2024 TIME: 8:48 AM CSN: [id number] Normal [facility] ANES PRE-OPon 06-12-2024 ANES PRE-OP HNO ID: [id number] Author: JOANNE ANDERSEN MD Service: ? Author Type: Physician Type: Anesthesia Preprocedure Evaluation Filed: 06/12/2024 07:39 Note Text: ANESTHESIOLOGY DAY OF SURGERY NOTE : 1985 Procedure Information Date/Time: 06/12/24 0800 Scheduled providers: Loraine Da Silva MD; Josi Glynn APRN.SILVERWARE BUFFING MACHINE OPERATOR; Joanne Andersen MD Procedure: EGD - THERAPEUTIC, EUS, OR TUBE INTERVENTIONS Location: Gastroenterology Estimated body mass index is 31.2 kg/m? as calculated from the following: Height as of 05/01/24: 188 cm (6' 2). Weight as of 05/01/24: 110.2 kg (243 lb). Most recent hematocrit and potassium results: Hematocrit 46.8 05/01/2024 Potassium 4.6 05/01/2024 Relevant Problems GI (+) GERD without esophagitis PULMONARY (+) Asthma Other (+) Chronic gout of multiple sites BOB I - PHYSICAL EVALUATION AIRWAY Patient intubated: No. Tracheostomy tube not present Mallampati: I. TM distance: >3 FB. Neck ROM: full ROM without neurological symptoms. Mouth opening: adequate. Short neck: no. Thick neck: no Gamez present: no Microretrognathia/Micronagth ia/Recessed Chin: No DENTAL Dental findings: missing tooth/teeth. Dentures, upper: partial. Additional exam findings: no II - ANESTHESIA PLAN ASA Score: 2 Anesthetic Plan: general Airway type: supplemental O2 The patient is not a current smoker. NPO Status: adequate Beta Yoselyn Administration of chronic beta yoselyn medication not planned. Monitoring Plan Monitoring plan: standard ASA. Post Procedure Analgesic Plan Postoperative analgesic plan: multimodal analgesia and parenteral or oral opioids. Informed Consent Anesthetic risks, benefits, alternatives, personnel and consent discussed: yes. Patient / Responsible Green Party agrees to proceed: yes Patient / Surrogate agrees to blood products: Yes DNR status reviewed with patient and/or family prior to surgery. patient elects to suspend DNR status in the perioperative setting (Full Code). Significant changes in the patient condition since the History and Physical, not otherwise documented in primary service progress note: no. Potential Anesthesia issues that may suggest increased risk of complications or contraindication to planned procedure: none. Discussed the possibility of lip / dental damage: yes No vitals data found for the desired time range. Outpatient Medications as of 06/12/2024 Medication Sig EPINEPHrine (EPIPEN) 0.3 mg/0.3 mL auto-injector Inject at onset of bee venom sting omeprazole (PRILOSEC) 40 mg capsule Take 1 capsule by mouth two times a day. Take 30 min before breakfast and dinner Naproxen Sodium 550 mg tablet Take 550 mg by mouth two times a day with meals. aspirin, enteric coated (ASPIRIN, ENTERIC COATED) 81 mg EC tablet Take 81 mg by mouth once daily. albuterol HFA (PROAIR HFA) 90 mcg/actuation inhaler Inhale 2 Puffs as instructed every 4 hours as needed. naproxen (NAPROSYN) 500 mg tablet Take 1 tablet by mouth three times a day with meals. Take with food. traZODone (DESYREL) 100 mg tablet Take 1-2 tablets by mouth daily at bedtime. cyclobenzaprine (FLEXERIL) 10 mg tablet Take 1 tablet by mouth three times a day as needed for muscle spasm. dupilumab (DUPIXENT PEN) 300 mg/2 mL pen injection Inject 300 mg subcutaneously one time a week. oxyCODONE-acetaminophen (PERCOCET) 5-325 mg tablet sertraline (ZOLOFT) 50 mg tablet Take 1 tablet by mouth once daily. dupilumab 300 mg/2 mL subcutaneous syringe (DUPIXENT SYRINGE) Inject 2 mL subcutaneously one time a week. dupilumab (DUPIXENT PEN) 300 mg/2 mL pen injection Inject 300 mg subcutaneously one time a week. allopurinol (ZYLOPRIM) 100 mg tablet Take 1 tablet by mouth once daily. For gout. budesonide (PULMICORT) 0.5 mg/2 mL nebulizer solution For eosinophilic esophagitis. Mix 4 respules with 5 packs of Splenda and swallow daily. Do not eat or drink for 30 minutes after (Patient not taking: Reported on 12/02/2023) fluticasone (FLONASE) 50 mcg/actuation nasal spray Use 1 [place] in each nostril daily at bedtime. montelukast (SINGULAIR) 10 mg tablet Take 1 tablet by mouth daily at bedtime. amino acids (BCAA ORAL) Take by mouth once daily. cetirizine (ZYRTEC) 10 mg tablet Take 10 mg by mouth once daily. Facility-Administered Medications as of 06/12/2024 Medication Dose Route Frequency lidocaine (PF) 10 mg/mL (1 %) 1-2 mg injection (XYLOCAINE) 0.1-0.2 mL INTRADERMAL PRN lactated ringers iv infusion 30 mL/hr INTRAVENOUS CONTINUOUS I have interviewed and examined the patient. I have reviewed the medical record and/or the pre-anesthesia evaluation, pertinent labs, and test results. This contains updated information obtained within 48 hours of Surgery/Procedure. SIGNATURE: Joanne Andersen MD PATIENT NAME: Carl Gross DATE: June 12, 2024 TIME: 7:34 AM CSN: [id number] Normal [facility] EGD Study observation Narrat iveon 06-12-2024 [facility] Radiology Study observation (narrative) [facility] NURSING PROGon 06-12-2024 NURSING PROG HNO ID: [id number] Author: NORA FLOWERS, YAS Service: Gastroenterology Author Type: Registered Nurse Type: Nursing Progress Note Filed: 06/12/2024 09:16 Note Text: Pt is alert and awake, denies pain, nausea and discomfort at this time. Discussed DC instructions, the pt and Marizol have no questions at this time. Pt wheeled out of the unit in a wheelchair by Marizol. Normal [facility] NURSING PRO HNO ID: [id number] Author: NORA FLOWERS RN Service: Gastroenterology Author Type: Registered Nurse Type: Nursing Progress Note Filed: 06/12/2024 08:57 Note Text: AMBULATORY PATIENT EDUCATION NOTE TOPIC: GI PROCEDURES: Esophagogastroduodenoscopy(E GD) for control of bleeding,dilation(any means),imaging,tube placement Esophagogastroduodenoscopy(E GD) with or without biopies based on clinical findings, removal of polyps or lesions READINESS TO LEARN INSTRUCTION PROVIDED TO: Patient and family member COGNITIVE ABILITY: Alert and oriented PTED MOTIVATION TO LEARN: Eager Interested FAMILY SUPPORT: High - Very involved in pt care IPATIENT LEARNS BEST BY: Individual Instruction Written Instruction - Hand-outs Verbal Instruction FACTORS AFFECTING LEARNING: None PHYSICAL LIMITATIONS AFFECTING LEARNING: None LEARNING RESPONSE METHOD OF INSTRUCTION: Individual instruction PATIENT / FAMILY RESPONSE: Verbalizes understanding of: WORSENING CONDITION-Signs and symptoms of a worsening condition that warrant a call to the physician FOLLOW-UP PLAN: Patient instructed to call with any further issues Recommend - Recommend continued instruction and follow up as directed Contact information given. SUPPLEMENTAL MATERIAL: Procedure Discharge Instructions REFERRAL (RECOMMENDATION): None Electronically Signed By: Nora Flowers RN [facility] NURSING [facility] HNO ID: [id number] Author: NORA FLOWERS RN Service: Gastroenterology Author Type: Registered Nurse Type: Nursing Progress Note Filed: 06/12/2024 08:40 Note Text: Pt is drowsy but easy to awaken. Pt's spouse- Marizol at bedside. Dr. Da Silva at bedside speaking with the pt and Marizol. Pt denies pain, nausea and discomfort at this time. [facility] NURSING PRO HNO ID: [id number] Author: NORA FLOWERS RN Service: Gastroenterology Author Type: Registered Nurse Type: Nursing Progress Note Filed: 06/12/2024 07:36 Note Text: PRE OP LEARNING ASSESSMENT PROCEDURE/SURGERY: GI PROCEDURES: EGD READINESS TO LEARN COGNITIVE ABILITY: Alert and oriented MOTIVATION TO LEARN: Eager Interested FAMILY SUPPORT: Unable to assess - Family not present PATIENT LEARNS BEST BY: Individual Instruction Verbal Instruction FACTORS AFFECTING LEARNING: None PHYSICAL LIMITATIONS AFFECTING LEARNING: None Electronically Signed By: Nora Flowers RN In Department: GASTROENTEROLOGY Normal [facility] SURGICAL PATHOLOGYon 024 CASE REPORT Normal [facility] Comment on above: Order Comment: Priti holder Type: TISSUE SPECIMENOrdering Facility: [facility] Address: [address] [place] [address] Result Comment: Surg ical Pathology Report Case: [id number] Authorizing Provider: Loraine Da Silva MD Collected: 06/12/2024 08:20 AM Ordering Location: Gastroenterology Received: 06/12/2024 11:17 AM Pathologist: Sixto Jane MD Specimens: A) - Esophagus, Distal, Biopsy, History of dysphagia B) - Esophagus, Proximal, Biopsy, History of dysphagia Performed By: #### S ####ACE LABORATORYCLIA [id number] [address] FINAL DIAGNOSIS Normal [facility] Comment on above: Order Comment: Priti holder Type: TISSUE SPECIMENOrdering Facility: [facility] Address: [address] [place] [address] Result Comment: A. D istal esophagus, biopsy: - Squamous mucosa with reactive epithelial changes and scattered intraepithelial eosinophils (up to 8 eosinophils per high magnification field). B. Proximal esophagus, biopsy: - Squamous mucosa with reactive epithelial changes and scattered intraepithelial eosinophils (up to 7 eosinophils per high magnification field). JEL 06/13/2024 Performed By: #### S ####ACE LABORATORYCLIA [id number] [address] FINAL PERFORMING LAB Normal [facility] Comment on above: Order Comment: Priti holder Type: TISSUE SPECIMENOrdering Facility: [facility] Address: [address] [place] [address] Result Comment: Diag nostic interpretation performed at [facility], [address] [place] [address] CLIA# [id number] Pipe Wrapping Machine Operator: Zia Dhaliwal M.D. Performed By: #### S ####ACE LABORATORYIA [id number] [place] [id number] [facility] GROSS DESCRIPTION Normal [facility] Comment on above: Order Comment: Speci men Type: TISSUE SPECIMENOrdering Facility: [facility] Address: [address] [place] [address] Result Comment: A. E sophagus, Distal, Biopsy Received in formalin are multiple pieces of bustos-white, soft tissue aggregating to 1.2 x 0.3 x 0.1 cm. Totally submitted in one cassette. B. Esophagus, Proximal, Biopsy Received in formalin are multiple pieces of bustos-white, soft tissue aggregating to 1 x 0.3 x 0.1 cm. Totally submitted in one cassette. Gross examination performed at [facility], [address] [place] [address] June 12, 2024 12:55 PM Performed By: #### S ####ACE LABORATORYIA [id number] [address] [facility] NURSING PROGon 06-05-2024 NURSING PROG HNO ID: [id number] Author: CORKY AMOR RN Service: ? Author Type: Registered Nurse Type: Nursing Progress Note Filed: 06/05/2024 15:12 Note Text: Attempted to reach the patient at the contact number that they provided [phone] (home) . Unable to speak with patient so without identifying the patient the following information was left on their voice mail: Date of procedure, location and report time A message was left informing the patient/patient medicare sales representative they must have a responsible adult accompany them to their procedure; and remain in the endoscopy area until they are discharged. Failure to have a responsible adult accompany the patient to their procedure appointment prevents the use of sedation or anesthesia for their procedure; and can result in cancellation of the procedure NPO instructions were reviewed. Instructions to contact their primary care provider regarding their medications and which medications to stop in preparation for their procedure Instructions to completely read and follow the written instructions that they recieved regarding their procedure. Number to call with questions or concerns [phone] Number to call to cancel their procedure [phone] Normal [facility] ([id number]) 1985 M Date Time Provider Department 06/04/24 [facility] During your visit today, we recorded the following information about you: Steph Root MA 06/04/2024 12:47 PM Addendum Pt sent in [employer] message today asking about an Rx for Epipen. Did ask pt if breathing symptoms are now normal. Which pt states they are. Swelling has improved, but feels stinger may still be in his skin and he's going to try and get it out. Please advise. Steph Root MA Pt message: Good morning, Over the weekend I was stung twice on the arm. I had slight breathing problems and major swelling which is mostly down now. I was wondering if I could get a epi pen for emergency cases like over the weekend. Simba Horton DO 06/05/2024 7:53 AM Signed Agree with below Epi pen sent to pharmacy Please notify patient also to take liquid or chewable benadryl 25-50 mg at onset of venom sting Simba Horton DO The following approved medication requests have been transmitted electronically. Requested Prescriptions Signed Prescriptions Disp Refills EPINEPHrine (EPIPEN) 0.3 mg/0.3 mL auto-injector 2 Each 1 Sig: Inject at onset of bee venom sting Authorizing Provider: SIMBA HORTON DO Quattrocchi, Beth, LPN 06/05/2024 8:53 AM Signed Phoned patient left detailed message with notes from Dr Horton on voicemail, and rx sent to pharmacy. Allergies As of Date: 06/04/2024 Noted Allergy Reaction BEE STING 09/22/2012 7 - Swelling Comments: Local swelling and shortness of breath DERMABOND (2-OCTYL CYANOACRYLATE) 12/01/2020 2 - Rash Date Reviewed: 05/01/2024 Reviewed by: Nicole Bob LPN - Fully Assessed Reason for Visit: Medication Request [138] Order(s):EPINEPHrine (EPIPEN) 0.3 mg/0.3 mL auto-injectorInject at onset of bee venom stingDisp: 2 EachRfl: 1 Prescriptions as of 06/05/2024 - EPINEPHrine (EPIPEN) 0.3 mg/0.3 mL auto-injector Inject at onset of bee venom sting - omeprazole (PRILOSEC) 40 mg capsule Take 1 capsule by mouth two times a day. Take 30 min before breakfast and dinner - Naproxen Sodium 550 mg tablet Take 550 mg by mouth two times a day with meals. - aspirin, enteric coated (ASPIRIN, ENTERIC COATED) 81 mg EC tablet Take 81 mg by mouth once daily. - albuterol HFA (PROAIR HFA) 90 mcg/actuation inhaler Inhale 2 Puffs as instructed every 4 hours as needed. - naproxen (NAPROSYN) 500 mg tablet Take 1 tablet by mouth three times a day with meals. Take with food. - traZODone (DESYREL) 100 mg tablet Take 1-2 tablets by mouth daily at bedtime. - cyclobenzaprine (FLEXERIL) 10 mg tablet Take 1 tablet by mouth three times a day as needed for muscle spasm. - dupilumab (DUPIXENT PEN) 300 mg/2 mL pen injection Inject 300 mg subcutaneously one time a week. - oxyCODONE-acetaminophen (PERCOCET) 5-325 mg tablet - sertraline (ZOLOFT) 50 mg tablet Take 1 tablet by mouth once daily. - dupilumab 300 mg/2 mL subcutaneous syringe (DUPIXENT SYRINGE) Inject 2 mL subcutaneously one time a week. - dupilumab (DUPIXENT PEN) 300 mg/2 mL pen injection Inject 300 mg subcutaneously one time a week. - allopurinol (ZYLOPRIM) 100 mg tablet Take 1 tablet by mouth once daily. For gout. - budesonide (PULMICORT) 0.5 mg/2 mL nebulizer solution For eosinophilic esophagitis. Mix 4 respules with 5 packs of Splenda and swallow daily. Do not eat or drink for 30 minutes after - fluticasone (FLONASE) 50 mcg/actuation nasal spray Use 1 [place] in each nostril daily at bedtime. - montelukast (SINGULAIR) 10 mg tablet Take 1 tablet by mouth daily at bedtime. - amino acids (BCAA ORAL) Take by mouth once daily. - cetirizine (ZYRTEC) 10 mg tablet Take 10 mg by mouth once daily. Problem List As Of Date 06/04/2024 Noted Resolved Palpitations [R00.2] Well adult exam [Z00.00] Seasonal allergies [J30.2] Food impaction of esophagus [T18.128A, W44.F3XA]05/20/2018 Obesity, Class I, BMI 30-34.9 [E66.811] 05/20/2018 Idiopathic gout involving toe [M10.079] 08/13/2019 Wheezes [R06.2] 08/13/2019 RUQ pain [R10.11] 11/19/2020 11/19/2020 Acute esophagitis [K20.90] 01/21/2021 01/21/2021 Esophageal dysphagia [R13.19] 05/25/2021 Eosinophilic esophagitis [K20.0] 05/25/2021 Abdominal pain [R10.9] 05/25/2021 Dysthymia [F34.1] 02/03/2022 THA (generalized anxiety disorder) [F41.1] 02/03/2022 Allergic rhinitis due to allergen [J30.9] 02/03/2022 Acute pain of right shoulder [M25.511] 02/03/2022 Acute right-sided low back pain with right-side*02/03/2022 GERD without esophagitis [K21.9] 02/03/2022 Bunion of great toe of left foot [M21.612] 04/26/2023 Chronic pain of both shoulders [M25.511, G89.29*04/26/2023 Chronic gout of multiple sites [M1A.09X0] 04/26/2023 Acute esophagitis [K20.90] 04/26/2023 Asthma [J45.909] Bloating [R1 (more content not included)... Normal [facility] 25-hydroxyvitamin D3 [Mass/Vol] 52.7 ng/mL Normal 31.0-80.0 [facility] Comment on above: Order Comment: Speci men Type: BLOOD SPECIMENOrdering Facility: [facility] Address: [address] [place] [address] Result Comment: Clas sification of 25 [place] Vitamin D status: Deficiency/Insufficiency: < or = 30 ng/ml. Sufficiency/Optimal Levels: 31-80 ng/mL Toxicity: > 100 ng/mL. Test performed by chemiluminescent immunoassay. Performed By: #### 1 989-3 ####[facility] LABCLIA [id number] [facility] [id number] [place], [place] [id number] [place] 25-hydroxyvitamin D3 [Mass/V ol]on 05-01-2024 Interpretation and review of laboratory results Normal [facility] The reference range interval was based on an analysis of samples from healthy adults and may not pertain to children from 0-18 years old. [facility] CBC W Auto Differential pane l (Bld)on 05-01-2024 Basophils (Bld) [#/Vol] 0.05 10*3/uL [facility] Basophils/100 WBC (Bld) 0.5 % [facility] Differential cell count method Nom (Bld) Auto [facility] Eosinophils (Bld) [#/Vol] 0.51 10*3/uL High [facility] Eosinophils/100 WBC (Bld) 5.6 % [facility] Erythrocyte distribution width (RBC) [Ratio] 11.9 % 11.5 - 15.0 % [facility] Hematocrit (Bld) [Volume fraction] 46.8 % 39.0 - 51.0 % [facility] Hemoglobin (Bld) [Mass/Vol] 15.2 g/dL 13.0 - 17.0 g/dL [facility] Immature granulocytes (Bld) [#/Vol] 0.06 10*3/uL [facility] Immature granulocytes/100 WBC (Bld) 0.7 % [facility] Interpretation and review of laboratory results Abnormal [facility] Lymphocytes (Bld) [#/Vol] 1.96 10*3/uL [facility] Lymphocytes/100 WBC (Bld) 21.5 % [facility] MCH (RBC) [Entitic mass] 29.5 pg 26.0 - 34.0 pg [facility] MCHC (RBC) [Mass/Vol] 32.5 g/dL 30.5 - 36.0 g/dL [facility] MCV (RBC) [Entitic vol] 90.7 fL 80.0 - 100.0 fL [facility] Monocytes (Bld) [#/Vol] 0.72 10*3/uL [facility] Monocytes/100 WBC (Bld) 7.9 % [facility] Neutrophils (Bld) [#/Vol] 5.82 10*3/uL [facility] Neutrophils/100 WBC (Bld) 63.8 % [facility] Nucleated RBC (Bld) [#/Vol] NINF [facility] Nucleated RBC/100 WBC (Bld) [Ratio] 0.0 % /100 WBC [facility] Platelet mean volume (Bld) [Entitic vol] 10.5 fL 9.0 - 12.7 fL [facility] Platelets (Bld) [#/Vol] 246 10*3/uL [facility] RBC (Bld) [#/Vol] 5.16 10*6/uL 4.20 - 6.00 m/uL [facility] WBC (Bld) [#/Vol] 9.12 10*3/uL [facility] Basophils (Bld) [#/Vol] 0.05 10*3/uL Normal <0.11 [facility] Comment on above: Order Comment: Speci men Type: BLOOD SPECIMENOrdering Facility: [facility] Address: [address] [place] [address] Performed By: #### 5 7021-8 ####[facility] LABCLIA [id number] [place] [address] [place] Basophils/100 WBC (Bld) 0.5 % Normal [facility] Comment on above: Order Comment: Speci men Type: BLOOD SPECIMENOrdering Facility: [facility] Address: [address] [place] [address] Performed By: #### 5 7021-8 ####[facility] LABCLIA [id number] [place] [address] [place] Differential cell count method Nom (Bld) Auto Normal [facility] Comment on above: Order Comment: Speci men Type: BLOOD SPECIMENOrdering Facility: [facility] [facility] Address: [address] [place] [address] Performed By: #### 5 7021-8 ####[facility] LABCLIA [id number] [place] [address] [place] Eosinophils (Bld) [#/Vol] 0.51 10*3/uL High <0.46 [facility] Comment on above: Order Comment: Speci men Type: BLOOD SPECIMENOrdering Facility: [facility] Address: [address] [place] [address] Performed By: #### 5 7021-8 ####[facility] LABCLIA [id number] [place] [address] [place] Eosinophils/100 WBC (Bld) 5.6 % Normal [facility] Comment on above: Order Comment: Speci men Type: BLOOD SPECIMENOrdering Facility: [facility] Address: [address] [place] [address] Performed By: #### 5 7021-8 ####[facility] LABCLIA [id number] [place] [address] [place] Erythrocyte distribution width (RBC) [Ratio] 11.9 % Normal 11.5-15.0 [facility] Comment on above: Order Comment: Speci men Type: BLOOD SPECIMENOrdering Facility: [facility] Address: [address] [place] [address] Performed By: #### 5 7021-8 ####[facility] LABCLIA [id number] [place] [address] [place] Hematocrit (Bld) [Volume fraction] 46.8 % Normal 39.0-51.0 [facility] Comment on above: Order Comment: Speci men Type: BLOOD SPECIMENOrdering Facility: [facility] Address: [address] [place] [address] Performed By: #### 5 7021-8 ####[facility] LABCLIA [id number] [place] [address] [place] Hemoglobin (Bld) [Mass/Vol] 15.2 g/dL Normal 13.0-17.0 [facility] Comment on above: Order Comment: Speci men Type: BLOOD SPECIMENOrdering Facility: [facility] Address: [address] [place] [address] Performed By: #### 5 7021-8 ####[facility] LABCLIA [id number] [place] [address] [place] Immature granulocytes (Bld) [#/Vol] 0.06 10*3/uL Normal <0.10 [facility] Comment on above: Order Comment: Speci men Type: BLOOD SPECIMENOrdering Facility: [facility] Address: [address] [place] [address] Performed By: #### 5 7021-8 ####[facility] LABIA [id number] [place] [address] [place] Immature granulocytes/100 WBC (Bld) 0.7 % Normal [facility] Comment on above: Order Comment: Speci men Type: BLOOD SPECIMENOrdering Facility: [facility] Address: [address] [place] [address] Performed By: #### 5 7021-8 ####[facility] LABCLIA [id number] [place] [address] [place] Lymphocytes (Bld) [#/Vol] 1.96 10*3/uL Normal 1.00-4.00 [facility] Comment on above: Order Comment: Speci men Type: BLOOD SPECIMENOrdering Facility: [facility] Address: [address] [place] [address] Performed By: #### 5 7021-8 ####[facility] LABIA [id number] [place] [id number] [place] Lymphocytes/100 WBC (Bld) 21.5 % Normal [facility] Comment on above: Order Comment: Speci men Type: BLOOD SPECIMENOrdering Facility: [facility] Address: [address] [place] [address] Performed By: #### 5 7021-8 ####[facility] LABCLIA [id number] [place] [address] [place] MCH (RBC) [Entitic mass] 29.5 pg Normal 26.0-34.0 [facility] Comment on above: Order Comment: Speci men Type: BLOOD SPECIMENOrdering Facility: [facility] Address: [address] [place] [address] Performed By: #### 5 7021-8 ####[facility] LABCLIA [id number] [place] [address] [place] MCHC (RBC) [Mass/Vol] 32.5 g/dL Normal 30.5-36.0 [facility] Comment on above: Order Comment: Speci men Type: BLOOD SPECIMENOrdering Facility: [facility] Address: [address] [place] [address] Performed By: #### 5 7021-8 ####[facility] LABCLIA [id number] [place] [address] [place] MCV (RBC) [Entitic vol] 90.7 fL Normal 80.0-100.0 [facility] Comment on above: Order Comment: Speci men Type: BLOOD SPECIMENOrdering Facility: [facility] Address: [address] [place] [address] Performed By: #### 5 7021-8 ####[facility] LABCLIA [id number] [place] [address] [place] Monocytes (Bld) [#/Vol] 0.72 10*3/uL Normal <0.87 [facility] Comment on above: Order Comment: Speci men Type: BLOOD SPECIMENOrdering Facility: [facility] Address: [address] [place] [address] Performed By: #### 5 7021-8 ####[facility] LABCLIA [id number] [place] [address] [place] Monocytes/100 WBC (Bld) 7.9 % Normal [facility] Comment on above: Order Comment: Speci men Type: BLOOD SPECIMENOrdering Facility: [facility] Address: [address] [place] [address] Performed By: #### 5 7021-8 ####[facility] LABCLIA [id number] [place] [address] [place] Neutrophils (Bld) [#/Vol] 5.82 10*3/uL Normal 1.45-7.50 [facility] Comment on above: Order Comment: Speci men Type: BLOOD SPECIMENOrdering Facility: [facility] Address: [address] [place] [address] Performed By: #### 5 7021-8 ####[facility] LABCLIA [id number] [place] [address] [place] Neutrophils/100 WBC (Bld) 63.8 % Normal [facility] Comment on above: Order Comment: Speci men Type: BLOOD SPECIMENOrdering Facility: [facility] Address: [address] [place] [address] Performed By: #### 5 7021-8 ####[facility] LABCLIA [id number] [place] [address] [place] Nucleated RBC (Bld) [#/Vol] 10*3/uL Normal <0.01 [facility] Comment on above: Order Comment: Speci men Type: BLOOD SPECIMENOrdering Facility: [facility] Address: [address] [place] [address] Performed By: #### 5 7021-8 ####[facility] LABCLIA [id number] [place] [address] [place] Nucleated RBC/100 WBC (Bld) [Ratio] 0.0 /100 WBC Normal [facility] Comment on above: Order Comment: Speci men Type: BLOOD SPECIMENOrdering Facility: [facility] Address: [address] [place] [address] Performed By: #### 5 7021-8 ####[facility] LABCLIA [id number] [place] [address] [place] Platelet mean volume (Bld) [Entitic vol] 10.5 fL Normal 9.0-12.7 [facility] Comment on above: Order Comment: Speci men Type: BLOOD SPECIMENOrdering Facility: [facility] Address: [address] [place] [address] Performed By: #### 5 7021-8 ####[facility] LABCLIA [id number] [place] [address] [place] Platelets (Bld) [#/Vol] 246 10*3/uL Normal 150-400 [facility] Comment on above: Order Comment: Speci men Type: BLOOD SPECIMENOrdering Facility: [facility] Address: [address] [place] [address] Performed By: #### 5 7021-8 ####[facility] LABIA [id number] [place] [address] [place] RBC (Bld) [#/Vol] 5.16 10*6/uL Normal 4.20-6.00 [facility] Comment on above: Order Comment: Speci men Type: BLOOD SPECIMENOrdering Facility: [facility] Address: [address] [place] [address] Performed By: #### 5 7021-8 ####[facility] LABCLIA [id number] [place] [address] [place] WBC (Bld) [#/Vol] 9.12 10*3/uL Normal 3.70-11.00 [facility] Comment on above: Order Comment: Speci men Type: BLOOD SPECIMENOrdering Facility: [facility] Address: [address] [place] [address] Performed By: #### 5 7021-8 ####[facility] LABCLIA [id number] [place] [id number] OF [facility] CNOVon 05-01-2024 [facility] CARL GROSS ([id number]) 1985 M Date Time Provider Department 05/01/24 9:00 AM [facility] During your visit today, we recorded the following information about you: Temperature Pulse Respiration Blood pressure 97 degrees 80/minute 16/minute 124/80 Weight Height 110.2 kg 1.88 m Simba Horton DO 05/01/2024 10:47 AM Signed CC: Carl Gross is a 39 year old male who presents to the office to establish care. HPI: Struggling with falling asleep and staying asleep. Thinks it may be pain related - has been struggling to sleep since he had his first knee surgery in November. Has been trying over the counter medication- melatonin and magnesium and benadryl. He would be interested in trying a medication to help get sleep cycle back in place. Willing to have fasting labs drawn THA, stable, taking sertraline and prn alprazolam Right knee recent surgery with meniscectomy and cartilage repair. He is limping, using crutches and having some post operative expected pain. No fevers or chills. No falls. Intermittent bloating, no blood in stools PAST MEDICAL HISTORY No date: Acute right-sided back pain with sciatica No date: Arthritis No date: Asthma No date: Awareness under anesthesia 02/03/2022: Dysthymia No date: Eosinophilic esophagitis No date: THA (generalized anxiety disorder) No date: Generalized anxiety disorder No date: Obstructive sleep apnea No date: Palpitations No date: Seasonal allergies No date: Well adult exam PAST SURGICAL HISTORY No date: ABDOMINAL SURGERY HX 2020: APPENDECTOMY HX 01/21/2021: COLONOSCOPY 10/22/2020: EGD Comment: Active esophagitis with increased intraepithelial eosinophils,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 01/21/2021: EGD 02/2012: PAST SURGICAL HISTORY OF Comment: left foot surgery 2009: PAST SURGICAL HISTORY OF Comment: repair tendon right hand 05/2018: PAST SURGICAL HISTORY OF Comment: Throat 12/05/2023: PAST SURGICAL HISTORY OF; Right Comment: arthroscopic knee- meniscus repair 2016: SINUS SURGERY HX Social History: Social History Tobacco Use Smoking status: Never Smokeless tobacco: Never Vaping Use Vaping status: Never Used Substance Use Topics Alcohol use: Yes Alcohol/week: 5.0 standard drinks of alcohol Types: 3 Standard drinks or equivalent, 2 Cans of Beer (12oz) per week Comment: occasional alcohol use Drug use: No FAMILY HISTORY Problem Relation Age of Onset Cancer Father thyroid? Cancer Mother thyroid Hypertension Maternal Grandfather Cancer Maternal Grandmother thyroid Hypertension Maternal Grandmother Anesthesia Problems No Family History Current Outpatient prescriptions: Naproxen Sodium 550 mg tablet Take 550 mg by mouth two times a day with meals. aspirin, enteric coated (ASPIRIN, ENTERIC COATED) 81 mg EC tablet Take 81 mg by mouth once daily. ALPRAZolam (XANAX) 0.25 mg tablet Take 1 tablet by mouth three times a day as needed for up to 10 days. cyclobenzaprine (FLEXERIL) 10 mg tablet Take 1 tablet by mouth three times a day as needed for muscle spasm. dupilumab (DUPIXENT PEN) 300 mg/2 mL pen injection Inject 300 mg subcutaneously one time a week. traMADol (ULTRAM) 50 mg tablet (Patient not taking: Reported on 03/16/2024) oxyCODONE-acetaminophen (PERCOCET) 5-325 mg tablet diclofenac, EC, (VOLTAREN) 75 mg EC tablet sertraline (ZOLOFT) 50 mg tablet Take 1 tablet by mouth once daily. dupilumab 300 mg/2 mL subcutaneous syringe (DUPIXENT SYRINGE) Inject 2 mL subcutaneously one time a week. dupilumab (DUPIXENT PEN) 300 mg/2 mL pen injection Inject 300 mg subcutaneously one time a week. allopurinol (ZYLOPRIM) 100 mg tablet Take 1 tablet by mouth once daily. For gout. budesonide (PULMICORT) 0.5 mg/2 mL nebulizer solution For eosinophilic esophagitis. Mix 4 respules with 5 packs of Splenda and swallow daily. Do not eat or drink for 30 minutes after (Patient not taking: Reported on 12/02/2023) omeprazole (PRILOSEC) 40 mg capsule Take 1 capsule by mouth once daily. fluticasone (FLONASE) 50 mcg/actuation nasal spray Use 1 [place] in each nostril daily at bedtime. montelukast (SINGULAIR) 10 mg tablet Take 1 tablet by mouth daily at bedtime. amino acids (BCAA ORAL) Take by mouth once daily. albuterol HFA (PROAIR HFA) 90 mcg/actuation inhaler Inhale 2 Puffs as instructed every 4 hours as needed. cetirizine (ZYRTEC) 10 mg tablet Take 10 mg by mouth once daily. Allergies: ALLERGIES Allergen Reactions Bee Sting Swelling Local swelling and shortness of breath Dermabond [2-Octyl * Rash ROS: See HPI PE: 05/01/24 0846 BP: 124/80 Pulse: 80 (more content not included)... Normal [facility] 05-01-2024 [facility] Telephone ([facility]) CARL GROSS ([id number]) 1985 M Date Time Provider Department 05/01/24 SIMBA HORTON [facility] During your visit today, we recorded the following information about you: Magnolia Arreguin MA 05/01/2024 3:08 PM Signed Please see pt message -- Hi. I forgot to go over a couple things this morning. - I called my ortho doctor on a refill of oxycodone for pain and it?s going to be a few days before they can submit a refill. Can I have you send a prescription as we discussed. - I forgot to ask about therapy for my knee. Is [facility]? I?m just not happy where I?m at. Simba Horton DO 05/07/2024 7:47 AM Signed Please call patient to clarify if he was able to get his pain medication now from orthopedics Also I am not aware of [facility]. Would assume they do a good job DO Kennedy Novoa Brittany L, MA 05/07/2024 11:00 AM Signed Patient filled Percocet 5/325 MG on 05/02/24 qty: 28 tablets prescribed by Joaquín Lopez at [facility] AND picked up 05/02/24. Patient notified via [employer] message. Vamsi Lea MA Allergies As of Date: 05/01/2024 Noted Allergy Reaction BEE STING 09/22/2012 7 - Swelling Comments: Local swelling and shortness of breath DERMABOND (2-OCTYL CYANOACRYLATE) 12/01/2020 2 - Rash Date Reviewed: 05/01/2024 Reviewed by: Nicole Bob LPN - Fully Assessed Reason for Visit: Patient Question [8527] Prescriptions as of 05/07/2024 - Naproxen Sodium 550 mg tablet Take 550 mg by mouth two times a day with meals. - aspirin, enteric coated (ASPIRIN, ENTERIC COATED) 81 mg EC tablet Take 81 mg by mouth once daily. - albuterol HFA (PROAIR HFA) 90 mcg/actuation inhaler Inhale 2 Puffs as instructed every 4 hours as needed. - naproxen (NAPROSYN) 500 mg tablet Take 1 tablet by mouth three times a day with meals. Take with food. - traZODone (DESYREL) 100 mg tablet Take 1-2 tablets by mouth daily at bedtime. - cyclobenzaprine (FLEXERIL) 10 mg tablet Take 1 tablet by mouth three times a day as needed for muscle spasm. - dupilumab (DUPIXENT PEN) 300 mg/2 mL pen injection Inject 300 mg subcutaneously one time a week. - oxyCODONE-acetaminophen (PERCOCET) 5-325 mg tablet - sertraline (ZOLOFT) 50 mg tablet Take 1 tablet by mouth once daily. - dupilumab 300 mg/2 mL subcutaneous syringe (DUPIXENT SYRINGE) Inject 2 mL subcutaneously one time a week. - dupilumab (DUPIXENT PEN) 300 mg/2 mL pen injection Inject 300 mg subcutaneously one time a week. - allopurinol (ZYLOPRIM) 100 mg tablet Take 1 tablet by mouth once daily. For gout. - budesonide (PULMICORT) 0.5 mg/2 mL nebulizer solution For eosinophilic esophagitis. Mix 4 respules with 5 packs of Splenda and swallow daily. Do not eat or drink for 30 minutes after - fluticasone (FLONASE) 50 mcg/actuation nasal spray Use 1 [place] in each nostril daily at bedtime. - montelukast (SINGULAIR) 10 mg tablet Take 1 tablet by mouth daily at bedtime. - amino acids (BCAA ORAL) Take by mouth once daily. - cetirizine (ZYRTEC) 10 mg tablet Take 10 mg by mouth once daily. Problem List As Of Date 05/01/2024 Noted Resolved Palpitations [R00.2] Well adult exam [Z00.00] Seasonal allergies [J30.2] Food impaction of esophagus [T18.128A, W44.F3XA]05/20/2018 Obesity, Class I, BMI 30-34.9 [E66.9] 05/20/2018 Idiopathic gout involving toe [M10.079] 08/13/2019 Wheezes [R06.2] 08/13/2019 RUQ pain [R10.11] 11/19/2020 11/19/2020 Acute esophagitis [K20.90] 01/21/2021 01/21/2021 Esophageal dysphagia [R13.19] 05/25/2021 Eosinophilic esophagitis [K20.0] 05/25/2021 Abdominal pain [R10.9] 05/25/2021 Dysthymia [F34.1] 02/03/2022 THA (generalized anxiety disorder) [F41.1] 02/03/2022 Allergic rhinitis due to allergen [J30.9] 02/03/2022 Acute pain of right shoulder [M25.511] 02/03/2022 Acute right-sided low back pain with right-side*02/03/2022 GERD without esophagitis [K21.9] 02/03/2022 Bunion of great toe of left foot [M21.612] 04/26/2023 Chronic pain of both shoulders [M25.511, G89.29*04/26/2023 Chronic gout of multiple sites [M1A.09X0] 04/26/2023 Acute esophagitis [K20.90] 04/26/2023 Asthma [J45.909] Bloating [R14.0] 05/01/2024 Situational insomnia [F51.09] 05/01/2024 Encounter Status:Closed by VAMSI LEA on 05/07/24 Normal [facility] Comprehensive metabolic 2000 panelon 05-01-2024 Albumin [Mass/Vol] 4.7 g/dL 3.9 - 4.9 g/dL [facility] ALP [Catalytic activity/Vol] 57 U/L 38 - 113 U/L [facility] ALT [Catalytic activity/Vol] 33 U/L 10 - 54 U/L [facility] Anion gap [Moles/Vol] 10 mmol/L 8 - 15 mmol/L [facility] AST [Catalytic activity/Vol] 27 U/L 14 - 40 U/L [facility] Bilirubin [Mass/Vol] 0.4 mg/dL 0.2 - 1 .3 mg/dL [facility] Calcium [Mass/Vol] 9.8 mg/dL 8.5 - 10. 2 mg/dL [facility] Chloride [Moles/Vol] 105 mmol/L 98 - 10 7 mmol/L [facility] CO2 [Moles/Vol] 25 mmol/L 22 - 30 mmol/L [facility] Creatinine [Mass/Vol] 0.83 mg/dL 0.73 - 1.22 mg/dL [facility] GFR/1.73 sq M.predicted among non-blacks MDRD (S/P/Bld) [Vol rate/Area] 113 mL/min/{1.73_m2} - PINF [facility] Comment on above: Estimated Glomerular Filtration Rate (eGFR) is calculated using the 2020 CKD-EPI creatinine equation. This equation utilizes serum creatinine, sex, and age as parameters. The creatinine assay has traceable calibration to isotope dilution-mass spectrometry. Refer to KDIGO guidelines for clinical interpretation. In patients with unstable renal function, e.g. those with acute kidney injury, the eGFR may not accurately reflect actual GFR. Glucose [Mass/Vol] 101 mg/dL High 74 - 99 mg/dL [facility] Comment on above: The [place] Diabete s Association (ADA) provides guidance for cutoff values for fasting glucose and random glucose. The ADA defines fasting as no caloric intake for at least 8 hours. Fasting plasma glucose results between 100 to 125 mg/dL indicate increased risk for diabetes (prediabetes). Fasting plasma glucose results greater than or equal to 126 mg/dL meet the criteria for diagnosis of diabetes. In the absence of unequivocal hyperglycemia, results should be confirmed by repeat testing. In a patient with classic symptoms of hyperglycemia or hyperglycemic crisis, random plasma glucose results greater than or equal to 200 mg/dL meet the criteria for diagnosis of diabetes. Reference: Standards of Medical Care in Diabetes 2016, [place] Diabetes Association. Diabetes Care. 2016.39(Suppl 1). Interpretation and review of laboratory results Abnormal [facility] Potassium [Moles/Vol] 4.6 mmol/L 3.7 - 5.1 mmol/L [facility] Protein [Mass/Vol] 7.5 g/dL 6.3 - 8.0 g/dL [facility] Sodium [Moles/Vol] 140 mmol/L 136 - 144 mmol/L [facility] Urea nitrogen [Mass/Vol] 23 mg/dL 9 - 24 mg/dL [facility] Albumin [Mass/Vol] 4.7 g/dL Normal 3.9-4.9 [facility] Comment on above: Order Comment: Priti holder Type: BLOOD SPECIMENOrdering Facility: [facility] Address: [address] [place] [address] Performed By: #### 2 4323-8, 3016-3, 31267-6, 2131-9 ####[facility] LABCLIA [id number] [place] [address] [place] ALP [Catalytic activity/Vol] 57 U/L Normal 38-113 [facility] Comment on above: Order Comment: Speci men Type: BLOOD SPECIMENOrdering Facility: [facility] Address: [address] [place], [place] [address] Performed By: #### 2 4323-8, 6-3, , 2132-04 ####[facility] LABCLIA [id number] [address] [address] [place] ALT [Catalytic activity/Vol] 33 U/L Normal 10-54 [facility] Comment on above: Order Comment: Speci men Type: BLOOD SPECIMENOrdering Facility: [facility] Address: [address] [place], [place] [address] Performed By: #### 2 4323-8, 3015-3, , 2132-04 ####[facility] LABCLIA [id number] [place] [address] [place] Anion gap [Moles/Vol] 10 mmol/L Normal 8-15 [facility] Comment on above: Order Comment: Speci men Type: BLOOD SPECIMENOrdering Facility: [facility] Address: [address] [place] [address] Performed By: #### 2 4323-8, 3015-3, , 2132-04 ####[facility] LABCLIA [id number] [place] [address] [place] AST [Catalytic activity/Vol] 27 U/L Normal 14-40 [facility] Comment on above: Order Comment: Speci men Type: BLOOD SPECIMENOrdering Facility: [facility] Address: [address] [place], [place] [address] Performed By: #### 2 4323-8, 3015-3, , 2132-04 ####[facility] LABCLIA [id number] [place] [id number] [place] Bilirubin [Mass/Vol] 0.4 mg/dL Normal 0.2-1.3 [facility] Comment on above: Order Comment: Speci men Type: BLOOD SPECIMENOrdering Facility: [facility] Address: [address] [place] [address] Performed By: #### 2 4323-8, 3015-3, , 2132-04 ####[facility] LABCLIA [id number] [address] [address] [place] Calcium [Mass/Vol] 9.8 mg/dL Normal 8.5-10.2 [facility] Comment on above: Order Comment: Speci men Type: BLOOD SPECIMENOrdering Facility: [facility] Address: [address] [place], [place] [address] Performed By: #### 2 4323-8, 3015-3, , 2132-04 ####[facility] LABCLIA [id number] [address] [address] [place] Chloride [Moles/Vol] 105 mmol/L Normal 98-107 [facility] Comment on above: Order Comment: Speci men Type: BLOOD SPECIMENOrdering Facility: [facility] Address: [address] [place], [place] [address] Performed By: #### 2 4323-8, 3015-3, , 2132-04 ####[facility] LABIA [id number] [address] [address] [place] CO2 [Moles/Vol] 25 mmol/L Normal 22-30 [facility] Comment on above: Order Comment: Speci men Type: BLOOD SPECIMENOrdering Facility: [facility] Address: [address] [place], [place] [address] Performed By: #### 2 4323-8, 3015-3, , 2132-04 ####[facility] [facility]CL[facility] [id number] [address] [address] [place] Creatinine [Mass/Vol] 0.83 mg/dL Normal 0.73-1.22 [facility] Comment on above: Order Comment: Speci men Type: BLOOD SPECIMENOrdering Facility: [facility] Address: [address] [id number] Performed By: #### 2 4323-8, 3016-3, , 2132-04 ####[facility] LABCLIA [id number] [place] [id number] [place] Creatinine and Glomerular filtration rate.predicted panel (S/P/Bld) 113 mL/min/1.73m??? Normal >=60 [facility] Comment on above: Order Comment: Priti holder Type: BLOOD SPECIMENOrdering Facility: [facility] Address: [address] [place] [address] Result Comment: Nandini mated Glomerular Filtration Rate (eGFR) is calculated using the 2020 CKD-EPI creatinine equation. This equation utilizes serum creatinine, sex, and age as parameters. The creatinine assay has traceable calibration to isotope dilution-mass spectrometry. Refer to KDIGO guidelines for clinical interpretation. In patients with unstable renal function, e.g. those with acute kidney injury, the eGFR may not accurately reflect actual GFR. Performed By: #### 2 4323-8, 3016-3, , 2132-04 ####[facility] LABCLIA [id number] [place] [id number] [place] Glucose [Mass/Vol] 101 mg/dL High 74-99 [facility] Comment on above: Order Comment: Priti holder Type: BLOOD SPECIMENOrdering Facility: [facility] Address: [address] [place] [address] Result Comment: The [place] Diabetes Association (ADA) provides guidance for cutoff values for fasting glucose and random glucose. The ADA defines fasting as no caloric intake for at least 8 hours. Fasting plasma glucose results between 100 to 125 mg/dL indicate increased risk for diabetes (prediabetes). Fasting plasma glucose results greater than or equal to 126 mg/dL meet the criteria for diagnosis of diabetes. In the absence of unequivocal hyperglycemia, results should be confirmed by repeat testing. In a patient with classic symptoms of hyperglycemia or hyperglycemic crisis, random plasma glucose results greater than or equal to 200 mg/dL meet the criteria for diagnosis of diabetes. Reference: Standards of Medical Care in Diabetes 2016, [place] Diabetes Association. Diabetes Care. 2016.39(Suppl 1). Performed By: #### 2 4323-8, 3015-3, , 2132-04 ####[facility] LABCLIA [id number] [address] [address] [place] Potassium [Moles/Vol] 4.6 mmol/L Normal 3.7-5.1 [facility] Comment on above: Order Comment: Speci men Type: BLOOD SPECIMENOrdering Facility: [facility] Address: [address] [place], [place] [address] Performed By: #### 2 4323-8, 3015-3, , 2132-04 ####[facility] LABIA [id number] [address] [address] [place] Protein [Mass/Vol] 7.5 g/dL Normal 6.3-8.0 [facility] Comment on above: Order Comment: Speci men Type: BLOOD SPECIMENOrdering Facility: [facility] Address: [address] [place] [address] Performed By: #### 2 4323-8, 3, , 2132-04 ####[facility] LABIA [id number] [address] [address] [place] Sodium [Moles/Vol] 140 mmol/L Normal 136-144 [facility] Comment on above: Order Comment: Speci men Type: BLOOD SPECIMENOrdering Facility: [facility] Address: [address] [place] [address] Performed By: #### 2 4323-8, 3015-3, , 2132-04 ####[facility] LABCLIA [id number] [address] [address] [place] Urea nitrogen [Mass/Vol] 23 mg/dL Normal 9-24 [facility] Comment on above: Order Comment: Speci men Type: BLOOD SPECIMENOrdering Facility: [facility] Address: [address] [place] [address] Performed By: #### 2 4323-8, 3016-3, 78801-5, 2132-9 ####[facility] LABCLIA [id number] [place] [address] [place] HbA1c (Bld)on 05-01-2024 Average glucose Estimated from glycated hemoglobin (Bld) [Mass/Vol] 111 mg/dL Normal [facility] Comment on above: Order Comment: Priti gallo Type: BLOOD SPECIMENOrdering Facility: [facility] Address: [address] [place] [address] Result Comment: eAG: (Estimated average glucose) is a calculated value from HgbA1c and is medicare sales representative of the average blood glucose level in the last 2-3 month period. Performed By: #### 5 5454-3 ####[facility] LABIA [id number] [address] STATES OF [facility] HbA1c (Bld) [Mass fraction] 5.5 % Normal 4.3-5.6 [facility] Comment on above: Order Comment: Riocayden holder Type: BLOOD SPECIMENOrdering Facility: [facility] Address: [address] [place] [address] Result Comment: [place] Diabetes Association guidelines indicate that patients with HgbA1c in the range 5.7-6.4% are at increased risk for development of diabetes, and intervention by lifestyle modification may be beneficial. HgbA1c greater or equal to 6.5% is considered diagnostic of diabetes. Performed By: #### 5 5454-3 ####[facility] LABIA [id number] [place] [address] [place] MAGNESIUMon 05-01-2024 Magnesium [Mass/Vol] 2.3 mg/dL 1.7 - 2 .3 mg/dL [facility] Magnesium SerPl-mCncon 05-01 Magnesium [Mass/Vol] 2.3 mg/dL Normal 1.7-2.3 [facility] Comment on above: Order Comment: Speci men Type: BLOOD SPECIMENOrdering Facility: [facility] Address: [address] [place], [place] [address] [place] [id number] Performed By: #### 2 4323-8, 3016-3, 07301-2, 2132-9 ####[facility] LABCLIA [id number] [address] [id number] [place] Magnesium [Mass/Vol]on 05-01 Interpretation and review of laboratory results Normal [facility] No Panel Informationon 05-01 Interpretation and review of laboratory results Normal [facility] TESTOSTERONE, FREE AND TOTAL on 05-01-2024 TESTOSTERONE, FREE, S 15.1 ng/dL Normal 4.46-17.1 [facility] Comment on above: Order Comment: Speci men Type: BLOOD SPECIMENOrdering Facility: [facility] Address: [address] [place] [address] Result Comment: ADDITIONAL INFORMATION This test was developed and its performance characteristics determined by [facility] in a manner consistent with CLIA requirements. This test has not been cleared or approved by the U.S. Food and Drug Administration. Performed By: #### T FTEST ####[facility] LABCLIA [id number] [place] [address] TESTOSTERONE, TOTAL, S 357 ng/dL Normal 240-950 [facility] Comment on above: Order Comment: Speci men Type: BLOOD SPECIMENOrdering Facility: [facility] Address: [address] [id number] Result Comment: ADDITIONAL INFORMATION Testing performed by Liquid Chromatography-Tandem Mass Spectrometry (LC-MS/MS). This test was developed and its performance characteristics determined by [facility] in a manner consistent with CLIA requirements. This test has not been cleared or approved by the U.S. Food and Drug Administration. Test Performed by: [facility] [address] [place] [address] Machine Driller: Delfino Lea Ph.D.; CLIA# [id number] Performed By: #### T FTEST ####[facility] LABCLIA [id number] [place] [address] THYROID STIMULATING HORMONEo n 05-01-2024 TSH Qn 1.120 m[IU]/L [facility] TSH SerPl-aCncon 05-01-2024 TSH Qn 1.120 m[IU]/L Normal 0.270-4.20 0 [facility] Comment on above: Order Comment: Speci men Type: BLOOD SPECIMENOrdering Facility: [facility] Address: [address] [place] [address] Performed By: #### 2 4323-8, 6-3, , 2132-04 ####[facility] LABCLIA [id number] [place] [address] [place] VITAMIN B12on 05-01-2024 Cobalamin (Vitamin B12) [Mass/Vol] 942 pg/mL 232 - 1245 pg/mL [facility] VITAMIN D 25 HYDROXYon 05-01 25-hydroxyvitamin D3 [Mass/Vol] 52.7 ng/mL 31.0 - 80.0 ng/mL [facility] Comment on above: Classification of 25 [place] Vitamin D status: Deficiency/Insufficiency: < or = 30 ng/ml. Sufficiency/Optimal Levels: 31-80 ng/mL Toxicity: > 100 ng/mL. Test performed by chemiluminescent immunoassay. Vit B12 SerPl-mCncon 024 Cobalamin (Vitamin B12) [Mass/Vol] 942 pg/mL Normal 232-1245 [facility] Comment on above: Order Comment: Speci men Type: BLOOD SPECIMENOrdering Facility: [facility] Address: [address] [place] [address] Performed By: #### 2 4323-8, 6-3, , 2132-04 ####[facility] LABCLIA [id number] [address] [place] [address] [place] EGD Study observation Narrat iveon 03-20-2024 [facility] Radiology Study observation (narrative) [facility] EGD Study observation Narrat iveon 12-20-2023 [facility] Radiology Study observation (narrative) [facility] Influenza virus A and B RNA and SARS-CoV-2 (COVID-19) N gene panel JOY+probe (Resp)on 10-11-2023 FLUAV RNA JOY+probe Ql (Unsp spec) Detected Abnormal Not Detected [facility] FLUBV RNA JOY+probe Ql (Unsp spec) Not detected Not Detected [facility] SARS-CoV-2 (COVID-19) RNA JOY+probe Ql (Resp) Not detected See comment [facility] STREP A MOLECULAR (POC)on Procedural Control Valid [facility] Strep A (POCT) Negative Negative [facility] EGD - THERAPEUTIC, EUS, OR T UBE INTERVENTIONSon 07-19-2023 [facility] CBC W Auto Differential pane l (Bld)on 04-26-2023 Basophils (Bld) [#/Vol] 0.03 10*3/uL <0.11 k/uL [facility] Basophils/100 WBC (Bld) 0.4 % [facility] Differential cell count method Nom (Bld) Auto [facility] Eosinophils (Bld) [#/Vol] 0.37 10*3/uL <0.46 k/uL [facility] Eosinophils/100 WBC (Bld) 5.5 % [facility] Erythrocyte distribution width (RBC) [Ratio] 11.8 % 11.5 - 15.0 % [facility] Hematocrit (Bld) [Volume fraction] 46.0 % 39.0 - 51.0 % [facility] Hemoglobin (Bld) [Mass/Vol] 15.2 g/dL 13.0 - 17.0 g/dL [facility] Immature granulocytes (Bld) [#/Vol] <0.10 k/uL [facility] Immature granulocytes/100 WBC (Bld) 0.3 % [facility] Lymphocytes (Bld) [#/Vol] 1.59 10*3/uL 1.00 - 4.00 k/uL [facility] Lymphocytes/100 WBC (Bld) 23.7 % [facility] MCH (RBC) [Entitic mass] 28.9 pg 26.0 - 34.0 pg [facility] MCHC (RBC) [Mass/Vol] 33.0 g/dL 30.5 - 36.0 g/dL [facility] MCV (RBC) [Entitic vol] 87.5 fL 80.0 - 100.0 fL [facility] Monocytes (Bld) [#/Vol] 0.47 10*3/uL <0.87 k/uL [facility] Monocytes/100 WBC (Bld) 7.0 % [facility] Neutrophils (Bld) [#/Vol] 4.22 10*3/uL 1.45 - 7.50 k/uL [facility] Neutrophils/100 WBC (Bld) 63.1 % [facility] Nucleated RBC (Bld) [#/Vol] <0.01 k/uL [facility] Nucleated RBC/100 WBC (Bld) [Ratio] 0.0 /100 WBC [facility] Platelet mean volume (Bld) [Entitic vol] 10.6 fL 9.0 - 12.7 fL [facility] Platelets (Bld) [#/Vol] 246 10*3/uL 150 - 400 k/uL [facility] RBC (Bld) [#/Vol] 5.26 10*6/uL 4.20 - 6.00 m/uL [facility] WBC (Bld) [#/Vol] 6.70 10*3/uL 3.70 - 11.00 k/uL [facility] Comprehensive metabolic 2000 panelon 04-26-2023 Albumin [Mass/Vol] 5.1 g/dL High 3.9 - 4.9 g/dL [facility] ALP [Catalytic activity/Vol] 65 U/L 38 - 113 U/L [facility] ALT [Catalytic activity/Vol] 32 U/L 10 - 54 U/L [facility] Anion gap [Moles/Vol] 11 mmol/L 9 - 18 mmol/L [facility] AST [Catalytic activity/Vol] 36 U/L 14 - 40 U/L [facility] Bilirubin [Mass/Vol] 0.4 mg/dL 0.2 - 1 .3 mg/dL [facility] Calcium [Mass/Vol] 10.0 mg/dL 8.5 - 10. 2 mg/dL [facility] Chloride [Moles/Vol] 102 mmol/L 97 - 10 5 mmol/L [facility] CO2 [Moles/Vol] 26 mmol/L 22 - 30 mmol/L [facility] Creatinine [Mass/Vol] 0.99 mg/dL 0.73 - 1.22 mg/dL [facility] Estimated Glomerular Filtration Rate 99 mL/min/1.73m >=60 mL/min/1.7 3m [facility] Glucose [Mass/Vol] 91 mg/dL 74 - 99 mg/dL [facility] Potassium [Moles/Vol] 4.0 mmol/L 3.7 - 5.1 mmol/L [facility] Protein [Mass/Vol] 7.2 g/dL 6.3 - 8.0 g/dL [facility] Sodium [Moles/Vol] 139 mmol/L 136 - 144 mmol/L [facility] Urea nitrogen [Mass/Vol] 12 mg/dL 9 - 24 mg/dL [facility] Lipid 1996 panelon 3 Cholesterol [Mass/Vol] 144 mg/dL <200 mg/dL [facility] Cholesterol in HDL [Mass/Vol] 46 mg/dL >39 mg/dL [facility] Cholesterol in LDL [Mass/Vol] 74 mg/dL <100 mg/dL [facility] Cholesterol in LDL/Cholesterol in HDL [Mass ratio] 1.61 {ratio} <2.54 [facility] Cholesterol in VLDL [Mass/Vol] 24 mg/dL <30 mg/dL [facility] Cholesterol non HDL [Mass/Vol] 98 mg/dL <130 mg/dL [facility] Cholesterol.total/Chol esterol in HDL [Mass ratio] 3.13 {ratio} <5.10 [facility] Fasting Time 12 hrs [facility] Triglyceride [Mass/Vol] 120 mg/dL <150 mg/dL [facility] T4 FREE/FREE THYROXon 2022 Free T4 [Mass/Vol] 1.4 ng/dL 0.9 - 1.7 ng/dL [facility] TSH BLDon 04-26-2023 TSH Qn 0.631 m[IU]/L 0.270 - 4.200 mIU/L [facility] URIC ACID BLOODon 04-26-2023 Urate [Mass/Vol] 6.9 mg/dL 4.0 - 8.1 mg/dL [facility] VITAMIN B12 BLOODon 04-26-20 Cobalamin (Vitamin B12) [Mass/Vol] 759 pg/mL 232 - 1,245 pg/mL [facility] EGD - THERAPEUTIC, EUS, OR T UBE INTERVENTIONSon 03-29-2023 [facility] XR Ankle - left AP and Later al and obliqueon 12-14-2022 IMPRESSION: No radiographic evidence of acute osseous injury Comparator Operator: ANALI Transcribe Date/Time: Dec 14 2022 4:16P Dictated by : SYMONE MONZON MD This examination was interpreted and the report reviewed and electronically signed by: SYMONE MONZON MD on Dec 14 2022 4:17PM EST DIVISION OF RADIOLOGY * * *Final Report* * * DATE OF EXAM: Dec 13 2022 12:31PM WOX 5298 - XR ANKLE 3V AP/LAT/OBL LT / PROCEDURE REASON: multiple diagnoses * * * * Physician Interpretation * * * * TITLE: XR ANKLE 3V AP/LAT/OBL LT CLINICAL INDICATION: Left ankle injury TECHNIQUE: 3 view radiographic study of the left ankle COMPARISON: None FINDINGS: No acute fracture or dislocation identified. Mild hypertrophic spur formation along the dorsal talonavicular joint. Dorsal and plantar calcaneal enthesophytes DIVISION OF RADIOLOGY Provider, [facility] - 12/14/2022 * * *Final Report* * * DATE OF EXAM: Dec 13 2022 12:31PM WOX 5298 - XR ANKLE 3V AP/LAT/OBL LT / PROCEDURE REASON: multiple diagnoses * * * * Physician Interpretation * * * * TITLE: XR ANKLE 3V AP/LAT/OBL LT CLINICAL INDICATION: Left ankle injury TECHNIQUE: 3 view radiographic study of the left ankle COMPARISON: None FINDINGS: No acute fracture or dislocation identified. Mild hypertrophic spur formation along the dorsal talonavicular joint. Dorsal and plantar calcaneal enthesophytes IMPRESSION IMPRESSION: No radiographic evidence of acute osseous injury Comparator Operator: PSCB Transcribe Date/Time: Dec 14 2022 4:16P Dictated by : SYMONE MONZON MD This examination was interpreted and the report reviewed and electronically signed by: SYMONE MONZON MD on Dec 14 2022 4:17PM EST [facility] XR Ankle - left AP and Later al and obliqueOrdered By: Ccf Provider on 12-14-2022 [facility] XR Ankle - left AP and Later al and obliqueon 12-13-2022 Radiology Study observation (narrative) [facility] No Panel InformationOrdered By: Reanna Cheung on 11-07-2022 D-Dimer Quantitative (PE/DVT) < 0.27 FEU/ug/m 0.27-0.49 [facility] Comment on above: NORMAL D-Dimer level (<0.50) indicates no DVT or PE. EGD - THERAPEUTIC, EUS, OR T UBE INTERVENTIONSon 11-02-2022 [facility] EGD - THERAPEUTIC, EUS, OR T UBE INTERVENTIONSon 05-18-2022 [facility] CBC W Auto Differential pane l (Bld)on 01-12-2022 Abs Immature Gran 0.03 k/uL <0.10 k/uL [facility] Basophils (Bld) [#/Vol] 0.05 10*3/uL <0.11 k/uL [facility] Basophils/100 WBC (Bld) 0.6 % [facility] Differential cell count method Nom (Bld) Auto [facility] Eosinophils (Bld) [#/Vol] 0.49 10*3/uL High <0.46 k/uL [facility] Eosinophils/100 WBC (Bld) 6.1 % [facility] Erythrocyte distribution width (RBC) [Ratio] 11.9 % 11.5 - 15.0 % [facility] Hematocrit (Bld) [Volume fraction] 47.7 % 39.0 - 51.0 % [facility] Hemoglobin (Bld) [Mass/Vol] 16.4 g/dL 13.0 - 17.0 g/dL [facility] Immature Gran % 0.4 % [facility] Lymphocytes (Bld) [#/Vol] 1.59 10*3/uL 1.00 - 4.00 k/uL [facility] Lymphocytes/100 WBC (Bld) 19.7 % [facility] MCH (RBC) [Entitic mass] 30.5 pg 26.0 - 34.0 pg [facility] MCHC (RBC) [Mass/Vol] 34.4 g/dL 30.5 - 36.0 g/dL [facility] MCV (RBC) [Entitic vol] 88.8 fL 80.0 - 100.0 fL [facility] Monocytes (Bld) [#/Vol] 0.55 10*3/uL <0.87 k/uL [facility] Monocytes/100 WBC (Bld) 6.8 % [facility] Neutrophils (Bld) [#/Vol] 5.36 10*3/uL 1.45 - 7.50 k/uL [facility] Neutrophils/100 WBC (Bld) 66.4 % [facility] Nucleated RBC (Bld) [#/Vol] 10*3/uL <0.01 k/uL [facility] Nucleated RBC/100 WBC (Bld) [Ratio] 0.0 /100 WBC [facility] Platelet mean volume (Bld) [Entitic vol] 10.2 fL 9.0 - 12.7 fL [facility] Platelets (Bld) [#/Vol] 208 10*3/uL 150 - 400 k/uL [facility] RBC (Bld) [#/Vol] 5.37 10*6/uL 4.20 - 6.00 m/uL [facility] WBC (Bld) [#/Vol] 8.07 10*3/uL 3.70 - 11.00 k/uL [facility] Comprehensive metabolic 2000 panelon 01-12-2022 Albumin [Mass/Vol] 4.7 g/dL 3.9 - 4.9 g/dL [facility] ALP [Catalytic activity/Vol] 83 U/L 38 - 113 U/L [facility] ALT [Catalytic activity/Vol] 37 U/L 10 - 54 U/L [facility] Anion gap [Moles/Vol] 12 mmol/L 9 - 18 mmol/L [facility] AST [Catalytic activity/Vol] 32 U/L 14 - 40 U/L [facility] Bilirubin [Mass/Vol] 0.3 mg/dL 0.2 - 1 .3 mg/dL [facility] Calcium [Mass/Vol] 9.2 mg/dL 8.5 - 10. 2 mg/dL [facility] Chloride [Moles/Vol] 102 mmol/L 97 - 10 5 mmol/L [facility] CO2 [Moles/Vol] 25 mmol/L 22 - 30 mmol/L [facility] Creatinine [Mass/Vol] 1.05 mg/dL 0.73 - 1.22 mg/dL [facility] Estimated Glomerular Filtration Rate 93 mL/min/1.73m >=60 mL/min/1.7 3m [facility] Glucose [Mass/Vol] 114 mg/dL High 74 - 99 mg/dL [facility] Potassium [Moles/Vol] 4.4 mmol/L 3.7 - 5.1 mmol/L [facility] Protein [Mass/Vol] 7.4 g/dL 6.3 - 8.0 g/dL [facility] Sodium [Moles/Vol] 139 mmol/L 136 - 144 mmol/L [facility] Urea nitrogen [Mass/Vol] 11 mg/dL 9 - 24 mg/dL [facility] ANES POSTPROC EVALon 021 ANES POSTPROC EVAL HNO ID: [id number] Author: Karan Ingram MD Service: Anesthesiology Author Type: Anesthesiologist Type: Anesthesia Postprocedure Evaluation Filed: 01/21/2021 10:47 AM Note Text: POST ANESTHESIA EVALUATION NOTE : 1985 Procedure Summary Date: 01/21/21 Room / Location: ID ENDO A / ID ENDO Anesthesia Start: 958 Anesthesia Stop: 1033 Procedures: EGD WITH BIOPSY (N/A ) COLONOSCOPY WITH BIOPSY (N/A ) Diagnosis: Acute esophagitis Esophageal mass Altered bowel habits Surgeons: Mauro Ramires MD Responsible Provider: Karan Ingram MD Anesthesia Type: MAC ASA Status: 2 Anesthesia Type: MAC Last vitals Vitals Value Taken Time BP 108/54 01/21/21 1045 Temp 36.6 ?C (97.9 ?F) 01/21/21 1031 Pulse 68 01/21/21 1045 Resp 16 01/21/21 1045 SpO2 97 % 01/21/21 1045 Post Anesthesia Patient Status Patient Evaluation: PACU. PACU/ICU Patient Condition: stable. Anticipated Disposition: phase 2 then home. Neurological Status: aware and responsive. Pulmonary Status: breathing comfortably on room air Airway Control: returned to baseline unsupported. Cardiovascular Status: stable. Pain Management: clinically adequate - multimodal analgesia pain management approach Postoperative Hydration: acceptable. Intraoperative Events: no significant anesthesia events Recommendation: continue current plan of care. No complications documented. SIGNATURE: Karan Ingram MD PATIENT NAME: Carl Gross DATE: January 21, 2021 TIME: 10:46 AM CSN: [id number] [facility] ANES PRE-OPon 01-21-2021 ANES PRE-OP HNO ID: [id number] Author: Tanmay Woodard MD Service: Anesthesiology Author Type: Anesthesiologist Type: Anesthesia Preprocedure Evaluation Filed: 01/21/2021 8:42 AM Note Text: ANESTHESIOLOGY DAY OF SURGERY NOTE : 1985 Procedure(s) (LRB): EGD/COLONOSCOPY (N/A) COLONOSCOPY (N/A) Surgeon(s): Mauro Ramires MD Estimated body mass index is 33.78 kg/m? as calculated from the following: Height as of this encounter: 185.4 cm (6' 1). Weight as of this encounter: 116.1 kg (256 lb). Most recent hematocrit and potassium results: Hematocrit 47.9 10/29/2020 Potassium 4.2 10/29/2020 Relevant Problems No relevant active problems I - PHYSICAL EVALUATION AIRWAY Patient intubated: No. Tracheostomy tube not present Mallampati: II. TM distance: >3 FB. Neck ROM: full ROM without neurological symptoms. Mouth opening: adequate. DENTAL Dental findings: poor dentition. Additional exam findings: yes. CARDIOVASCULAR Rhythm: regular PULMONARY Breath sounds clear to auscultation. II - ANESTHESIA PLAN ASA Score: 2 Anesthetic Plan: MAC NPO Status: adequate Monitoring plan: standard ASA. Postoperative analgesic plan: parenteral or oral opioids and multimodal analgesia. Anesthetic Risks, Benefits, Alternatives, Personnel Discussed. Consent obtained from: patient.Patient / Surrogate agrees to blood products: blood products not planned Significant changes in the patient condition since the History and Physical, not otherwise documented in primary service progress note: no. Vitals Value Taken Time BP 137/83 01/21/21 0839 Pulse 89 01/21/21 0839 Resp 18 01/21/21 0839 Temp 37 ?C (98.6 ?F) 01/21/21 0839 SpO2 99 % 01/21/21 0839 Facility-Administered Medications as of 01/21/2021 Medication Dose Route Frequency - lactated ringers iv infusion 30 mL/hr INTRAVENOUS CONTINUOUS Outpatient Medications as of 01/21/2021 Medication Sig - busPIRone (BUSPAR) 5 mg tablet Take 1 tablet by mouth twice daily as needed (anxiety attack). - cetirizine (ZYRTEC) 10 mg tablet Take 1 tablet by mouth once daily. - amino acids (BCAA ORAL) Take by mouth. - whey protein, concent-isolate (WHEY PROTEIN, CONC-ISOLATE ORAL) Take by mouth. - Creatinine, Bulk, 100 % powd - sucralfate (CARAFATE) 1 gram tablet Take 1 tablet by mouth four times daily. TAKE 1 PO 30 MINUTES BEFORE MEALS AND AT BEDTIME. - ondansetron orally disintegrating (ZOFRAN ODT) 4 mg disintegrating tablet Take 1 tablet by mouth every 8 hours as needed. - omeprazole (PRILOSEC) 40 mg capsule Take 1 capsule by mouth once daily. - sertraline (ZOLOFT) 25 mg tablet Take 1 tablet by mouth once daily. At bedtime - albuterol HFA (PROAIR HFA) 90 mcg/actuation inhaler Inhale 2 Puffs as instructed every 4 hours as needed. I have interviewed and examined the patient. I have reviewed the medical record and/or the pre-anesthesia evaluation, pertinent labs, and test results. This contains updated information obtained within 48 hours of Surgery/Procedure. SIGNATURE: Tanmay Woodard MD PATIENT NAME: Carl Gross DATE: January 21, 2021 TIME: 8:41 AM CSN: [id number] Normal [facility] HISTORY PHYSICALon HISTORY PHYSICAL HNO ID: [id number] Author: Mauro Ramires MD Service: General Surgery Author Type: Physician Type: HANDP Filed: 01/21/2021 10:01 AM Note Text: UPDATED PROCEDURAL SEDATION HISTORY AND PHYSICAL EXAMINATION SERVICE DATE: 01/21/2021 SERVICE TIME: 10:00 AM PHYSICAL EXAM MUST BE COMPLETED ON ADMISSION The History and Physical (completed in the past 30 days) has been reviewed and the patient has been examined. The contents accurately reflect the patient's condition with the following additions or revisions since the HANDP was completed. ASA Class: Examination indicates no changes. AIRWAY: LUNGS: Lungs clear to auscultation, Good diaphragmatic excursion CARDIAC: Normal S1 and S2; no rubs, murmurs, or gallops Provisional Diagnosis/Treatment Plan: egd and c-scope This HANDP can be found in the Electronic Medical Record dated 12/31/20. SIGNATURE: Mauro Ramires III, MD PATIENT NAME: Carl Gross DATE: January 21, 2021 TIME: 10:00 AM Normal [facility] SURGICAL PATHOLOGYon 01-21-2 021 SURGICAL PATHOLOGY Specimen originated from [facility] Specimen #: [id number] Submitting Physician: Mauro Ramires M.D. FINAL DIAGNOSIS 1. Esophagogastric junction, mass, biopsy (A) - Inflamed gastric cardia-type mucosa with patchy pancreatic acinar heterotopia, see comment. - Reactive squamous mucosa with increased intraepithelial eosinophils (up to 12/HPF). 2. Stomach, biopsy (B) - Gastric oxyntic mucosa with proton pump inhibitor effect. - No morphologic evidence of H. pylori microorganisms. 3. Duodenum, biopsy (C) - Small intestinal mucosa with no diagnostic alteration. 4. Random colon, biopsy (D) - Colonic mucosa with no diagnostic alteration. COMMENT 1. The biopsy is superficial. There is no evidence of intestinal metaplasia, dysplasia or malignancy in this material. Clinical endoscopic correlation is necessary. Re-biopsy and close follow-up may be considered if there is clinical concern. /jossy 01/22/2021 Dewey Montes M.D. PhD. (Electronic Signature) SPECIMEN SUBMITTED A: ESOPHAGOGASTRIC JUNCTION MASS, BIOPSY B: GASTRIC, BIOPSY C: DUODENUM, BIOPSY D: RANDOM COLON, BIOPSIES CLINICAL DATA A: R/O COLON'S; R/O MALIGNANCY B: R/O H. PYLORI C: R/O CELIAC SPRUE D: SCREENING: FAMILY HISTORY GROSS DESCRIPTION A. Received in formalin are multiple pieces of bustos, soft tissue aggregating to 1.4 x 0.3 x 0.2 cm. Totally submitted in one cassette. B. Received in formalin is one piece of bustos, soft tissue measuring 1.0 x 0.2 x 0.2 cm. Totally submitted in one cassette. C. Received in formalin is one piece of bustos, soft tissue measuring 1.1 x 0.3 x 0.2 cm. Totally submitted in one cassette. D. Received in formalin are multiple pieces of bustos, soft tissue aggregating to 6.7 x 0.2 x 0.1 cm. Totally submitted in four cassettes. Gross examination performed at [facility], [address] [place] [address] J 01/21/2021 4:09:45 PM Date of Report: 01/23/2021 Date of Procedure: 01/21/2021 Date of Receipt: 01/21/2021 Submitted by: Mauro Ramires M.D. Location: [facility] Diagnostic interpretation performed at [place] [address]. CLIA Number: [id number] [facility] ANES POSTPROC EVALon 021 ANES POSTPROC EVAL HNO ID: [id number] Author: Freddy Valera MD Service: Anesthesiology Author Type: Anesthesiologist Type: Anesthesia Postprocedure Evaluation Filed: 11/19/2020 11:05 AM Note Text: POST ANESTHESIA EVALUATION NOTE : 1985 Procedure Summary Date: 11/19/20 Room / Location: [place] [address] / ID OR Anesthesia Start: 730 Anesthesia Stop: 857 Procedures: LAPAROSCOPIC CHOLECYSTECTOMY (N/A Abdomen quadrant upper) REPAIR UMBILICAL HERNIA, >5 YEARS, REDUCIBLE (N/A Abdomen) Diagnosis: RUQ pain Surgeons: Mauro Ramires Responsible Provider: Freddy Valera MD Anesthesia Type: general ASA Status: 2 Anesthesia Type: general Last vitals Vitals Value Taken Time BP 146/78 11/19/20 1000 Temp 36.2 ?C (97.2 ?F) 11/19/20 1000 Pulse 92 11/19/20 1000 Resp 16 11/19/20 1000 SpO2 93 % 11/19/20 1000 Post Anesthesia Patient Status Patient Evaluation: bedside. Anticipated Disposition: phase 2 then home. Neurological Status: aware and responsive. Pulmonary Status: breathing comfortably on room air Airway Control: returned to baseline unsupported. Cardiovascular Status: stable. Pain Management: clinically adequate Postoperative Hydration: acceptable. Intraoperative Events: no significant anesthesia events Post Operative Nausea/Vomiting Status: no significant post operative nausea or vomiting Anesthetic Observations: Recommendation: continue current plan of care. No complications documented. SIGNATURE: Freddy Valera MD PATIENT NAME: Carl Gross DATE: November 19, 2020 TIME: 11:05 AM CSN: [id number] [facility] ANES PRE-OPon 11-19-2020 ANES PRE-OP HNO ID: [id number] Author: Freddy Valera MD Service: Anesthesiology Author Type: Anesthesiologist Type: Anesthesia Preprocedure Evaluation Filed: 11/19/2020 7:04 AM Note Text: ANESTHESIOLOGY DAY OF SURGERY NOTE : 1985 Procedure(s) (LRB): LAPAROSCOPIC CHOLECYSTECTOMY (N/A) Surgeon(s): Mauro Ramires Estimated body mass index is 33.46 kg/m? as calculated from the following: Height as of 11/07/20: 185.4 cm (6' 1). Weight as of 11/07/20: 115 kg (253 lb 9.6 oz). Most recent hematocrit and potassium results: Hematocrit 47.9 10/29/2020 Potassium 4.2 10/29/2020 Relevant Problems No relevant active problems I - PHYSICAL EVALUATION AIRWAY Patient intubated: No. Tracheostomy tube not present Mallampati: I. TM distance: >3 FB. Neck ROM: full ROM without neurological symptoms. Mouth opening: adequate. Short neck: no. Thick neck: no DENTAL Normal dental observations. Dental findings: teeth intact. Additional exam findings: no II - ANESTHESIA PLAN ASA Score: 2 Anesthetic Plan: general Airway type: ETT The patient is not a current smoker. NPO Status: adequate Monitoring plan: standard ASA. Postoperative analgesic plan: parenteral or oral opioids. Anesthetic Risks, Benefits, Alternatives, Personnel Discussed. Consent obtained from: patient.Patient / Surrogate agrees to blood products: blood products not planned DNR status not reviewed with patient and/or family prior to surgery. Significant changes in the patient condition since the History and Physical, not otherwise documented in primary service progress note: no. Potential Anesthesia issues that may suggest increased risk of complications or contraindication to planned procedure: none. Vitals Value Taken Time BP 148/96 03/24/21 0630 Pulse Resp 16 03/24/21 0630 Temp 36.6 ?C (97.9 ?F) 11/19/20629 SpO2 99 % 11/19/20629 Facility-Administered Medications as of 11/19/2020 Medication Dose Route Frequency - lactated ringers infusion 30 mL/hr INTRAVENOUS CONTINUOUS - ceFAZolin iv piggyback 2 g in D5W (iso-osmotic) 100 mL (ANCEF) 2 g INTRAVENOUS Pre-Op Once - [COMPLETED] acetaminophen 650 mg tab(s) (TYLENOL) 650 mg ORAL Pre-Op Once - [COMPLETED] promethazine 12.5 mg tab(s) (PHENERGAN) 12.5 mg ORAL Pre-Op Once Outpatient Medications as of 11/19/2020 Medication Sig - sucralfate (CARAFATE) 1 gram tablet Take 1 tablet by mouth four times daily. TAKE 1 PO 30 MINUTES BEFORE MEALS AND AT BEDTIME. - omeprazole (PRILOSEC) 40 mg capsule Take 1 capsule by mouth once daily. - sertraline (ZOLOFT) 25 mg tablet Take 1 tablet by mouth once daily. At bedtime - busPIRone (BUSPAR) 5 mg tablet Take 1 tablet by mouth twice daily as needed (anxiety attack). - cetirizine (ZYRTEC) 10 mg tablet Take 1 tablet by mouth once daily. - ondansetron orally disintegrating (ZOFRAN ODT) 4 mg disintegrating tablet Take 1 tablet by mouth every 8 hours as needed. - ondansetron orally disintegrating (ZOFRAN ODT) 4 mg disintegrating tablet Take 1 tablet by mouth every 6 hours as needed for Nausea/Vomiting. - albuterol HFA (PROAIR HFA) 90 mcg/actuation inhaler Inhale 2 Puffs as instructed every 4 hours as needed. I have interviewed and examined the patient. I have reviewed the medical record and/or the pre-anesthesia evaluation, pertinent labs, and test results. This contains updated information obtained within 48 hours of Surgery/Procedure. SIGNATURE: Freddy Valera MD PATIENT NAME: Carl Gross DATE: November 19, 2020 TIME: 7:04 AM CSN: [id number] Normal [facility] HISTORY PHYSICALon HISTORY PHYSICAL HNO ID: [id number] Author: Mauro Ramires Service: General Surgery Author Type: Physician Type: HANDP Filed: 11/19/2020 6:57 AM Note Text: UPDATED HISTORY AND PHYSICAL EXAMINATION SERVICE DATE: 11/19/2020 SERVICE TIME: 6:57 AM PHYSICAL EXAM MUST BE COMPLETED ON ADMISSION The History and Physical (completed in the past 30 days) has been reviewed and the patient has been examined. The contents accurately reflect the patient's condition with the following additions or revisions since the HANDP was completed. Examination indicates no changes. This HANDP can be found in the Electronic Medical Record dated 11/07/20. SIGNATURE: Mauro Ramires III, MD PATIENT NAME: Carl Gross DATE: November 19, 2020 TIME: 6:57 AM [facility] OPERATIVE NOon 11-19-2020 OPERATIVE NO HNO ID: [id number] Author: Mauro Ramires Service: General Surgery Author Type: Physician Type: Operative Report Filed: 11/19/2020 10:42 AM Note Text: OPERATIVE/PROCEDURE REPORT LOG ID: [id number] SURGERY/PROCEDURE DATE: 11/19/2020 INCISION/PROCEDURE START TIME: 7:56 AM INCISION CLOSE/PROCEDURE END TIME: 8:45 AM SURGEON(S)/PROCEDURALIST(S) AND CUSTOMS EXAMINER(S): Surgeon(s) and Role: * Mauro Ramires - Primary Physician Physician: Sakshi Borden (Pa) SURGERY/PROCEDURE(S): 1 laparoscopic cholecystectomy 2. Repair of umbilical hernia ANESTHESIA: General SURGERY/PROCEDURE DETAILS: Patient was brought into the operating room. Placed in the supine position. Under excellent general endotracheal Bashan the abdomen was sterilely prepped draped in usual fashion. Local was injected supraumbilically. Dissection was carried down a small umbilical hernia was identified this was grasped with a [place] varies needle was placed inside the abdomen the abdomen was insufflated to 15 torr. A 10/12 trocar was placed without difficulty through the small umbilical defect. Patient is placed on the head up and rotated to the left position. A subxiphoid #5 trochars placed. Inferior to this another #5 trocar was placed, laterally a #5 trocar was placed. All these under direct visualization without injury to underlying structures. Fundus of the gallbladder was retracted in a cephalad direction. I dissected out the cystic duct. I placed hemoclips proximally and distally and ligated the duct. I dissected the cystic artery. I placed hemoclips proximally and distally and ligated the artery. I deliver the gallbladder from the gallbladder bed with use of electrocautery there was no spillage of bile or stones. I irrigated the right upper quadrant used electrocautery on the liver bed for good in the stasis. I removed the 10/12 trocar. I placed all the preperitoneal fat back into the intra-abdominal area. I closed the small umbilical defect with 2 sutures of #1 Nurolon's. I reinflated the abdomen and inspected the defect it was completely closed and there was no injury to underlying structures. NEO Martinez was my trade sales assistant. He assisted with retraction, visualization and performed skin closure. No additional surgeons or qualified residents were available. Skin was brought together with deep dermal stitches of 3-0 Vicryl then interrupted 4-0 Monocryl's Steri-Strips were applied sterile dressings were applied and the patient tolerated the procedure well. PRE-OP/PRE-PROCEDURE DIAGNOSIS: right upper quadrant abdominal pain, gallbladder polyps POST-OP/POST-PROCEDURE DIAGNOSIS: Same as preop with umbilical hernia ESTIMATED BLOOD LOSS: < 25 cc SPECIMENS: Gallbladder IMPLANTABLE DEVICES: None DRAINS: None COMPLICATIONS: None PARTICIPATION IN SURGERY/PROCEDURE: I/primary surgeon/proceduralist performed the procedure with assistance. SIGNATURE: Mauro Ramires III, MD PATIENT NAME: Carl Gross DATE: November 19, 2020 TIME: 8:39 AM Normal [facility] SURGICAL PATHOLOGYon 021 SURGICAL PATHOLOGY Specimen originated from [facility] Specimen #: [id number] Submitting Physician: Mauro Ramires M.D. FINAL DIAGNOSIS Gallbladder, cholecystectomy - Chronic cholecystitis with cholelithiasis and cholesterolosis. - One benign lymph node. EV REVELES MD (Electronic Signature) SPECIMEN SUBMITTED A: GALLBLADDER CLINICAL DATA RUQ PAIN GROSS DESCRIPTION A. Received in formalin labeled gallbladder is a 10 x 4 x 4 cm intact gallbladder with an attached 0.3 cm segment of cystic duct. There is an adjacent 0.4 cm rubbery bustos red lymph node. The serosa is pink to bazan and smooth. The hepatic bed demonstrates minimal fat soft bustos tissue. The gallbladder contains bile along with occasional friable black granular calculi that varies from 0.1 to 0.4 cm. The wall measures 0.2 cm in uniform thickness and the mucosa is bile stained and velvety with multiple soft yellow flecks of material. Brick Burner Head sections including the cystic duct margin and lymph node are submitted in one cassette. [facility]/ 11/20/2020 [place] [address] Date of Report: 11/20/2020 Date of Procedure: 11/19/2020 Date of Receipt: 11/19/2020 Submitted by: Mauro Ramires M.D. Location: [facility] Diagnostic interpretation performed at [place] [address]. IA Number: [id number] [facility] ANES Arnol 05-20-2018 ANES POST HNO ID: [id number] thor: John PenngeService: AnesthesiologyAuthor Type: PhysicianType: Anesthesia PostOpFiled: 05/20/2018 5:21 PMNote Text:POST ANESTHESIA EVALUATION NOTESERVICE DATE: 05/20/2018SERVICE TIME: 5:21 PMDOB: 1985Vitals: 05/20/1817Temp: 36.6 ?C (97.9 ?F) 37.1 ?C (98.8 ?F) 05/20/1815BP: 135/94 135/87 129/82 112/77 130 430 05/20/1817Pulse: (!) 92 89 (!) 91 102 130 430 05/20/1817Resp: 18 130 4305/20/1815SpO2: 96% (!) 94% 98% 100%Validated Vital Signs: YesPOST ANES STATUS: No apparent anesthetic complications. The patient isappropriately hydrated with stable respiratory and cardiovascular status.Patient has safe and adequate airway control. The patient has appropriatepain relief and no significant post operative nausea or vomiting. Thepatient has achieved baseline mental status.Intra-Operative Events: No Significant Anesthesia EventsFurther assessment by Anesthesia Service: NoneOther Remarks:SIGNATURE: John Faye MD PATIENT NAME: Carl ScanlonATE: May 20, 2018 : 5:21 PM PAGER/CONTACT #: [phone] [facility] ANES PREOPon 05-20-2018 ANES PREOP HNO ID: [id number] thor: John Ayonervice: AnesthesiologyAuthor Type: PhysicianType: Anesthesia PreOpFiled: 05/20/2018 5:20 PMNote Text:POST ANESTHESIA EVALUATION NOTESERVICE DATE: 05/20/2018SERVICE TIME: 5:20 PMDOB: 1985Vitals: 05/20/1817Temp: 36.6 ?C (97.9 ?F) 37.1 ?C (98.8 ?F) 05/20/1815BP: 135/94 135/87 129/82 112/77 130 05/20/1815Pulse: (!) 92 89 (!) 91 102 130 430 05/20/1817Resp: 18 05/20/1811430 530 SpO2: 96% (!) 94% 98% 100%Validated Vital Signs: YesPOST ANES STATUS: No apparent anesthetic complications. The patient isappropriately hydrated with stable respiratory and cardiovascular status.Patient has safe and adequate airway control. The patient has appropriatepain relief and no significant post operative nausea or vomiting. Thepatient has achieved baseline mental status.Intra-Operative Events: No Significant Anesthesia EventsFurther assessment by Anesthesia Service: NoneOther Remarks:SIGNATURE: John Faye MD PATIENT NAME: Carl VazquezonDATE: May 20, 2018 : 5:20 PM PAGER/CONTACT #: [phone] [facility] ANES PREOP HNO ID: [id number] thor: John Ayonervice: AnesthesiologyAuthor Type: PhysicianType: Anesthesia PreOpFiled: 05/20/2018 5:16 PMNote Text: ANESTHESIOLOGY DAY OF SURGERY NOTESERVICE DATE: 05/20/2018SERVICE TIME: 5:15 PMDOB: 1985Procedure(s) (LRB):EGD (N/A)Surgeon(s):Cheryl Shaikh MDEstimated body mass index is 32.32 kg/m? as calculated from the following: Height as of this encounter: 185.4 cm (6' 1). Weight as of this encounter: 111.1 kg (245 lb).Most recent hematocrit and potassium results:Hematocrit 47.5 09/29/2012Potassium 3.9 09/29/2012NES DOS/PREOP NOTE:Vitals: 430 530 600 BP: 135/94 135/87 129/82Pulse: 89 (!) 91Resp: 14 22Temp: (P) 37.1 ?C (98.8 ?F)TempSrc: (P) Temporal ArterySpO2: (!) 94% 98%Weight:Height:ACTIVE PROBLEM LISTPalpitationsWell Adult ExamSeasonal AllergiesFood Impaction of EsophagusObesity, Class I, Bmi 30-34.9PAST MEDICAL HISTORYDiagnosis Date- Obstructive sleep apnea- Palpitations- Seasonal allergies- Well adult examPAST SURGICAL HISTORYProcedure Laterality Date- PAST SURGICAL HISTORY OF 02/2012 left foot surgery- PAST SURGICAL HISTORY OF 2009 repair tendon right handFAMILY HISTORYProblem Relation Age of Onset- Cancer Mother thyroid- Cancer Father thyroid?- Cancer Maternal Grandmother thyroid- Hypertension Maternal Grandmother- Hypertension Maternal GrandfatherSocial History:Social HistorySubstance Use Topics- Smoking status: Never Smoker- Smokeless tobacco: Never Used- Alcohol use 3.0 oz/week 2 Cans of Beer (12oz) per weekNo current facility-administered medications on file prior to encounter.Current Outpatient Prescriptions on File Prior to Encounter:benzonatate (TESSALON PERLE) 100 mg capsule Take 1-2 capsules tid prnalbuterol (PROVENTIL) 5 mg/mL nebu Inhale 0.5 mL as instructed one timeonly for 1 dose. 1 DOSE NOW - BACK OFFICE. PLACE 0.5 ML PER DROPPER AND2.5 ML OF NORMAL SALINE INTO RESERVOIR.albuterol HFA (PROAIR HFA) 90 mcg/actuation inhaler Inhale 2 Puffs asinstructed every 4 hours as needed.fluticasone (FLONASE) 50 mcg/actuation nasal spray Use 2 Sprays in eachnostril once daily.cetirizine (ZYRTEC) 10 mg tablet Take 1 tablet by mouth once daily.No current facility-administered medications for this encounter.Allergies:ALLERGIE SAllergen Reactions- Bee Sting Swelling Local swelling and shortness of breathDOS EXAM: Adequate NPO status: YesAnesthetic risks, benefits, alternatives, personnel and consent discussed:YesPatient agrees to proceed: YesPrevious Anesthesia: No history of adverse event.Airway Assessment: MP 2; Neck ROM: Full ROM without neurologic symptoms;Airway Evaluation: No significant abnormalitiesSymptoms of Sleep Apnea: Male genderDentition: Poor dentitionMultiple missing teethRemovable partial: upperAdditional Physical Exam:Lungs: Patient health status unchanged since recent history and physical.See history and physical for exam findings.Cardiac: Patient health status unchanged since recent history andphysical. See history and physical for exam findings.Additional Pertinent Findings: N/ABlood Products: Not anticipated for this procedure.Anesthetic Plan: General, Standard ASA MonitorsPain Management Plan: Parenteral or OralASA Class: 2Other Medical Problems: NoneChronic Beta Yoselyn medication administered within 24 hours: N/AI have interviewed and examined the patient. I have reviewed the medicalrecord and/or the pre-anesthesia evaluation, pertinent labs, and testresults.Significant changes in the patient's condition since the History andPhysical, not otherwise documented in primary service progress notes: NoThis contains updated information obtained within 48 hours ofSurgery/Procedure.SIGNATUR E: John Faye MD PATIENT NAME: Carl Juan: May 20, 2018 : 5:15 PM CSN: [id number] [facility] BRIEF OP NOTon 05-20-2018 BRIEF OP NOT HNO ID: [id number] thor: AZEEM Jenkinservice: GastroenterologyAuthor Type: PhysicianType: Brief Op NoteFiled: 05/20/2018 5:25 PMNote Text:BRIEF OPERATIVE / PROCEDURE NOTELOG ID: [id number]/PROCEDURE DATE: 05/20/2018INCISION/PROCEDURE START TIME: 4:48 PMINCISION CLOSE/PROCEDURE END TIME: 5:02 PMSURGEON(S)/PROCEDURALIST(S ) AND CUSTOMS EXAMINER(S):Surgeon(s) and Role: * Cheryl Shaikh MD - PrimaryNo Additional StaffPROCEDURE(S): EGD with foreign body removal (food bolus)ANESTHESIA: GeneralFINDINGS:- normal duodenum- normal stomach- GEJ 38cm- food bolus noted in the proximal esophagus removed with tobin net.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 and biopsies from thedistal and proxiaml esophagus were taken to evaluate for eosinophilicesophagitis- otherwise normal esophagusESTIMATED BLOOD LOSS: NoneSPECIMENS: Biopsies from the distal and proximal esophagusCOMPLICATIONS: NonePRE-OP/PRE-PROCEDURE DIAGNOSIS: food impactionPOST-OP/POST-PROCED URE DIAGNOSIS: Food impaction of esophagus [T18.128A]SIGNATURE: Cheryl Shaikh MD PATIENT NAME: Carl Juan: May 20, 2018 : 5:21 PM PAGER/CONTACT #: [facility] CONSULTon 05-20-2018 CONSULT HNO ID: [id number] thor: Cheryl Velasquez Hlivko, MDService: GastroenterologyAuthor Type: PhysicianType: ConsultsFiled: 05/20/2018 5:17 PMNote Text:CONSULT: GASTROENTEROLOGY SERVICESERVICE DATE: 05/20/18ERVICE TIME: 2:54 PMREASON FOR CONSULT: food in esophagusREQUESTING PHYSICIAN: Mehreen De Luna Ginny is a 33 year old [place]. Pt reports that at last nights sree kent was eating a hot dog when he sudden felt it was stuck in his throat. Ptreports about 5 years ago he had pulled pork get stuck but after vomitingwas able to clear it. Reports intermittent GERD but no dysphagia on aregular basis. Pt has a history of asthma but not eczemia[facility]. They did nohave coverage for GI/surgery so transfer here for GIevaluation/managament.PAST MEDICAL HISTORYDiagnosis Date- Obstructive sleep apnea- Palpitations- Seasonal allergies- Well adult examPAST SURGICAL HISTORYProcedure Laterality Date- PAST SURGICAL HISTORY OF 02/2012 left foot surgery- PAST SURGICAL HISTORY OF 2009 repair tendon right handFAMILY HISTORYProblem Relation Age of Onset- Cancer Mother thyroid- Cancer Maternal Grandmother thyroid- Hypertension Maternal Grandfather- Hypertension Maternal Grandmother- Cancer Father thyroid?No current facility-administered medications for this encounter.Current Outpatient Prescriptions:benzonatate (TESSALON PERLE) 100 mg capsule Take 1-2 capsules tid prnDisp: 30 capsule Rfl: 0albuterol (PROVENTIL) 5 mg/mL nebu Inhale 0.5 mL as instructed one timeonly for 1 dose. 1 DOSE NOW - BACK OFFICE. PLACE 0.5 ML PER DROPPER AND2.5 ML OF NORMAL SALINE INTO RESERVOIR. Disp: 1 mL Rfl: 0albuterol HFA (PROAIR HFA) 90 mcg/actuation inhaler Inhale 2 Puffs asinstructed every 4 hours as needed. Disp: 1 Inhaler Rfl: 0fluticasone (FLONASE) 50 mcg/actuation nasal spray Use 2 Sprays in eachnostril once daily. Disp: 1 Bottle Rfl: 0cetirizine (ZYRTEC) 10 mg tablet Take 1 tablet by mouth once daily. Disp:Rfl: 0ALLERGIESAllergen Reactions- Bee Sting Swelling Local swelling and shortness of breathFully Assessed 05/20/18COMPLETE REVIEW OF SYSTEMS:PAIN ASSESSMENT: Negative for painGENERAL: No weight loss, malaise or feversHEAD AND NECK: No headache, swollen glandsPULMONARY: No cough, wheezing, dyspnea on exertion, or shortness of breathCARDIOVASCULAR: No chest pain, palpitationsABDOMINAL: Per HPINEUROLOGIC: No dizziness, lightheadedness, or weaknessOPHTHALMOLOGIC: No visual abnormalitiesMUSCULOSKELETAL : No pain, weakness, or leg swellingSKIN: No rashOBJECTIVEPHYSICAL EXAM: 05/20/1811BP: 147/90 125/85 135/94Pulse: (!) 99 (!) 92 89Resp: 18 18 14Temp: 36.6 ?C (97.9 ?F)TempSrc: OralSpO2: 98% 96% (!) 94%Weight: 111.1 kg (245 lb)Height: 185.4 cm (6' 1)GENERAL: Alert, no distress, cooperativeHEENT: PERRLA, normocephalic, no thyromegaly, no lymphadenopathy, tracheacentrally locatedCHEST: Clear to auscultation and percussion bilaterallyCVS: RRR, no murmur/gallopABD: soft, BS+, NT/NDNEURO: Cranial nerves grossly intact, no lateralizing neurologic signsMSK: No wasting, no weaknessEXT: No edema, no deformitySKIN: No jaundice, no rashDATA:Diagnostic tests reviewed for today's visit:Most recent labs and imaging results.CBC, Coags, BMP, Mg, PhosLiver Function, Amylase, AND LipaseNo results found for: INRIMPRESSION/RECOMMENDATION 1. Food bolus in esophagus: DDx: EoE vs stricture vs esophagitis vs etc- NPO- urgent EGD today in ORSIGNATURE: Cheryl Shaikh MD PATIENT NAME: Carl VzaquezonDATE: 05/20/18 : 2:54 PM [facility] ED NOTEon 05-20-2018 ED NOTE HNO ID: [id number] Author: Earline (Rn) YAS Barth Service: Emergency Medicine Author Type: Registered Nurse Type: ED Notes Filed: 05/20/2018 2:42 PM Note Text: Updated pt on or time [facility] ED NOTE HNO ID: [id number] Author: Earline SpannRn) YAS Barth Service: Emergency Medicine Author Type: Registered Nurse Type: ED Notes Filed: 05/20/2018 11:45 AM Note Text: 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 [facility] ED NOTE HNO ID: [id number] thor: Rhoda (Rn) BETITO Malikervice: Emergency MedicineAuthor Type: Registered NurseType: ED NotesFiled: 05/20/2018 11:08 AMNote Text:Pt presents from [facility] for a piece of hot dog stuckin his throat. Pt ate it at 2000 last night. [place]. Pt is able to maintain airway but is spittingout saliva. [facility] ED NOTE HNO ID: [id number] thor: Sarah Beth (Medic) Froylan, MedicService: (none)Author Type: Senior Project Manager and TechnicianType: ED NotesFiled: 05/20/2018 11:05 AMNote Text:Bed: 01-EDExpected date: 05/20/18Expected time: 10:56 AMMeans of arrival: Other EMS FireComments:Transfer from [place]--hotdog stuck in esophagus [facility] ED PROV NOTEon 05-20-2018 Protein mass conc HNO ID: [id number] thor: Elma Simpsonrvice: Emergency MedicineAuthor Type: PhysicianType: ED Provider NotesFiled: 05/21/2018 6:35 PMNote Text:Attending NoteI personally saw and examined the patient. I reviewed the resident'snote. I agree with the resident's assessment and plan unless otherwisenoted.This is a 33 year old male presenting with food bolus. The patient [place]the [employer] [place] a hot dog. A piece of the hotdog gotstuck in his esophagus. He states he has not been able to swallow his ownsaliva since then. Symptoms persisted today. He was seen at [facility] given glucagon without relief. He was sent here to seegastroenterology. .Physical Exam:Patient's afebrile vitals within normal limitsHeart regular no murmurs rubs or gallopsLungs clearNeck no stridorPlan I have discussed the patient's care with gastroenterology. They'rearranging for or time. Plan will be for patient to go to the OR for bolusremoval and then will be discharged from the PACU. Patient informed ofplan and in agreement. He is currently trying to arrange a ride Rohan Angeles, DO05/21/18 1835 [facility] HOSPon 05-20-2018 HOSP Patient:Corie Gross GMRN: Height:6' 1(1.854 m)Weight:245 lb (111.131 kg)Outpatient Medications as of 05/20/18:benzonatate (TESSALON PERLE) 100 mg capsulealbuterol (PROVENTIL) 5 mg/mL nebualbuterol HFA (PROAIR HFA) 90 mcg/actuation inhalerfluticasone (FLONASE) 50 mcg/actuation nasal spraycetirizine (ZYRTEC) 10 mg tabletAdmission/Clinic Administered Medications as of 05/20/18:water for irrigation irrigationProblem List:Palpitations [R00.2]Well adult exam [Z00.00]Seasonal allergies [J30.2]Food impaction of esophagus [T18.128A]Allergies:Bee StingDate Verified: 05/20/18Lab ValuesNo results within the last 30 days for the following basenames: K,HCTNo progress notes entered within the past 30 days [facility] OPERATIVE NOon 05-20-2018 OPERATIVE NO HNO ID: [id number] thor: AZEEM Jenkinservice: GastroenterologyAuthor Type: PhysicianType: Operative ReportFiled: 05/21/2018 12:13 PMNote Text:[facility] - Operative ReportCARL GROSS GDOB: 1985AGE: 33.SEX: MMRN: [id number] TYPE: EHOSP SVC: EMERLOCATION: [id number] PHYSICIAN:ANN-MARIE NUMBER: [id number] OF SURGERY/PROCEDURE: 05/20/2018PREOPERATIVE DIAGNOSIS: Food bolus in the esophagus.POSTOPERATIVE DIAGNOSIS:1. Food bolus found in the proximal esophagus and removed.2. Otherwise normal esophagus.3. Normal stomach.4. Normal duodenum.SURGEON: Cheryl Shaikh M.D.CUSTOMS EXAMINER:SURGERY/PROCED URE: Esophagogastroduodenoscopy with foreign body removal.ANESTHESIA: Please see Anesthesia notes.INDICATIONS: The patient was at the [employer] last night, whileeating a hot dog, and all of a sudden felt food stuck in his esophagus. He reports this happened about 5 years ago with pulled pork, but inbetween he has had no issues with dysphagia. He does have historyof asthma as a child, but denies eczema. Patient continues to haveissues swallowing his secretions, complaining of food still being in theesophagus.DESCRIPTION OF PROCEDURE: After risks, benefits, and alternatives of theprocedure were thoroughly explained, informed consent was obtained.Under directvisualization, the video endoscope was introduced through the mouth andadvanced to second portion of duodenum without limitation. Instrumentwas slowly withdrawn. Mucosa was fully examined.Findings: There was a meat bolus found in the proximal esophagus. Iused a Tobin Net and was able to remove this food bolus. The scope wasadvanced down to the 2nd portion of duodenum. There wasnormal-appearing mucosa found in the entire duodenum. There wasnormal appearing mucosa found in the entire stomach. The scope wasretroflexed and no abnormalities were noted. The scope was straightened and slowly withdrawn. The GE junction was noted at 38 centimeters.The scope was slowly withdrawn and it was noted that the esophagushad a feline appearance concerning for possible eosinophilicesophagitis. Biopsies were taken from the distal and proximal ends ofthe esophagus to rule out eosinophilic esophagitis. The esophagusotherwise appeared normal. The instrument was withdrawn and the procedure was concluded. Vital signs were monitored constantly throughout theprocedure.Specimens: Biopsies from the distal esophagus and the proximal esophagus.Complications: None.Estimated blood loss: None.Recommendations:1. I would recommend a liquid diet for the next 24 hours and then advanceslowly.2. Start PPI therapy over the counter until seen by physician.3. Await biopsy results.4. Follow up with PCP and get referral to GI physician.Cheryl Shaikh M.D.JH:[id number] #: [id number]: 05/20/2018 19:49:23 cc:* PCP [facility] Surgical Tissue Examon 05-20 Surgical Tissue Exam Test performed at [place] [id number]: CARL GROSS [id number] REQUESTING: FRITZ ANGELES D.O.COPY TO: CHERYL SHAIKHFINAL DIAGNOSIS:A) DISTAL ESOPHAGUS, BIOPSY - SQUAMOUS MUCOSA WITH ACUTE AND CHRONICINFLAMMATION AND REACTIVE EPITHELIAL CHANGES. ALCIAN BLUE/PAS STAIN ISNEGATIVE FOR INTESTINAL METAPLASIA OR FUNGAL ORGANISMS.B) PROXIMAL ESOPHAGUS, BIOPSY - SQUAMOUS MUCOSA WITH CHRONICINFLAMMATION CONSISTING PREDOMINANTLY OF EOSINOPHILS. SEE COMMENT.COMMENT: The proximal esophagus biopsy consists of fragments of benignsquamous mucosa with chronic inflammation which consist predominantlyof eosinophils. Focally the eosinophils number > 100 per high powerfield. In the appropriate clinical context these findings could beconsistent with eosinophilic esophagitis.OPERATIVE PROCEDURE: EGD for foreign body removalCLINICAL INFORMATION: Rule out eosinophil esophagitis; Food impactionGROSS DESCRIPTION:A) Distal esophageal biopsyReceived in formalin labeled distal esophagus is an irregular-shapedsegment of bustos soft tissue measuring 0.2 x 0.1 x 0.1 cm. Totallysubmitted in one cassette. Levels x 3. AB/PASB) Proximal esophageal biopsyReceived in formalin labeled proximal esophagus biopsy are multipleirregular-shaped segments of white soft tissue aggregating to 0.4 x 0.1x 0.1 cm. The specimen is totally submitted in one cassette. Levelsx 3. ARH:atul STEPHENS M.D., PATHOLOGIST(Electronic signature on file)Signed out: 05/23/2018 18:15PRINTED: 05/23/2018 Page 1 of 1 [facility] Comment on above: Performed By: #### S URG ####[place] [id number] Vital Signs Date Time Vital Sign Value Performing Clinician Facility 04-24-2025 13:32-0400 Body mass index (BMI) [Ratio] 32.35 kg/m2 Tuan Bowdenman ANTHROPOLOGY INSTRUCTOR.EMERY GRINDER Work Phone: [facility] 04-24-2025 13:32-0400 Body temperature 98.49 [degF] Tuan Puentes ANTHROPOLOGY INSTRUCTOR.EMERY GRINDER Work Phone: [facility] 04-24-2025 13:32-0400 Body weight 111.22 kg Tuan Puentes ANTHROPOLOGY INSTRUCTOR.EMERY GRINDER Work Phone: [facility] 04-24-2025 13:32-0400 Diastolic blood pressure 84 mm[Hg] Tuan Bowdenman ANTHROPOLOGY INSTRUCTOR.EMERY GRINDER Work Phone: [facility] 04-24-2025 13:32-0400 Heart rate 89 /min Tuan Puentes ANTHROPOLOGY INSTRUCTOR.EMERY GRINDER Work Phone: [facility] 04-24-2025 13:32-0400 SaO2% (BldA) [Mass fraction] 99 % Tuan Puentes ANTHROPOLOGY INSTRUCTOR.EMERY GRINDER Work Phone: [facility] 04-24-2025 13:32-0400 Systolic blood pressure 118 mm[Hg] Tuan Puentes ANTHROPOLOGY INSTRUCTOR.EMERY GRINDER Work Phone: [facility] 01-28-2025 15:30-0400 Diastolic blood pressure 72 mm[Hg] Kenisha Newby MD Work Phone: [facility] 01-28-2025 15:30-0400 Heart rate 76 /min Kenisha Newby MD Work Phone: [facility] 01-28-2025 15:30-0400 Respiratory rate 18 /min Kenisha Newby MD Work Phone: [facility] 01-28-2025 15:30-0400 SaO2% (BldA) [Mass fraction] 98 % Kenisha Newby MD Work Phone: [facility] 01-28-2025 15:30-0400 Systolic blood pressure 120 mm[Hg] Kenisha Newby MD Work Phone: [facility] 01-28-2025 15:12-0400 Body temperature 97.2 [degF] Kenisha Newby MD Work Phone: [facility] 01-28-2025 14:29-0400 Body height 185.4 cm Kenisha Newby MD Work Phone: [facility] 01-28-2025 14:29-0400 Body mass index (BMI) [Ratio] 31.93 kg/m2 Kenisha Newby MD Work Phone: [facility] 01-28-2025 14:29-0400 Body weight 109.77 kg Kenisha Newby MD Work Phone: [facility] 01-07-2025 14:42-0400 Body mass index (BMI) [Ratio] 33.64 kg/m2 Simba Horton DO Work Phone: [facility] 01-07-2025 14:42-0400 Body temperature 97.11 [degF] Simba Horton DO Work Phone: [facility] 01-07-2025 14:42-0400 Body weight 115.67 kg Simba Horton DO Work Phone: [facility] 01-07-2025 14:42-0400 Diastolic blood pressure 80 mm[Hg] Simba Horton DO Work Phone: [facility] 01-07-2025 14:42-0400 Heart rate 64 /min Simba Horton DO Work Phone: [facility] 01-07-2025 14:42-0400 Respiratory rate 20 /min Simba Horton DO Work Phone: [facility] 01-07-2025 14:42-0400 Systolic blood pressure 130 mm[Hg] Simba Horton DO Work Phone: [facility] 12-07-2024 14:03-0400 Body mass index (BMI) [Ratio] 32.26 kg/m2 Sebas Lawrence ANTHROPOLOGY INSTRUCTOR.BASEBALL UMPIRE FOR [employer]UE Work Phone: [facility] 12-07-2024 14:03-0400 Body weight 110.9 kg Sebas Lawrence ANTHROPOLOGY INSTRUCTOR.BASEBALL UMPIRE FOR [employer] Work Phone: [facility] 12-07-2024 14:03-0400 Diastolic blood pressure 74 mm[Hg] Sebas Lawrence ANTHROPOLOGY INSTRUCTOR.BASEBALL UMPIRE FOR [employer] Work Phone: [facility] 12-07-2024 14:03-0400 Heart rate 78 /min Sebas Lawrence ANTHROPOLOGY INSTRUCTOR.BASEBALL UMPIRE FOR [employer] Work Phone: [facility] 12-07-2024 14:03-0400 Respiratory rate 16 /min Sebas Lawrence ANTHROPOLOGY INSTRUCTOR.BASEBALL UMPIRE FOR [employer] Work Phone: [facility] 12-07-2024 14:03-0400 Systolic blood pressure 136 mm[Hg] Sebas Lawrence ANTHROPOLOGY INSTRUCTOR.BASEBALL UMPIRE FOR [employer] Work Phone: [facility] 11-27-2024 18:00-0400 Body temperature 98.6 [degF] Dr. Simba Horton DO Work Phone: [facility] 11-27-2024 18:00-0400 Diastolic blood pressure 86 mm[Hg] Dr. Simba Horton DO Work Phone: [facility] 11-27-2024 18:00-0400 Heart rate 79 /min Dr. Simba Horton DO Work Phone: [facility] 11-27-2024 18:00-0400 Respiratory rate 15 /min Dr. Simba Horton DO Work Phone: [facility] 11-27-2024 18:00-0400 SaO2% (BldA) [Mass fraction] 100 % Dr. Simba Horton DO Work Phone: [facility] 11-27-2024 18:00-0400 Systolic blood pressure 132 mm[Hg] Dr. Simba Horton DO Work Phone: [facility] 11-27-2024 15:36-0400 Body height 185.[address] Simba Horton DO Work Phone: [facility] 11-27-2024 15:36-0400 Body mass index (BMI) [Ratio] 32.8 kg/m2 Dr. Simba Horton DO Work Phone: [facility] 11-27-2024 15:36-0400 Body weight 113.[address] Simba Horton DO Work Phone: [facility] 11-19-2024 08:00-0400 Diastolic blood pressure 85 mm[Hg] Vi Trevino Jr., DO Work Phone: [facility] 11-19-2024 08:00-0400 Heart rate 79 /min Vi Trevino Jr., DO Work Phone: [facility] 11-19-2024 08:00-0400 Respiratory rate 18 /min Vi Trevino Jr., DO Work Phone: [facility] 11-19-2024 08:00-0400 SaO2% (BldA) [Mass fraction] 96 % Vi Trevino Jr., DO Work Phone: [facility] 11-19-2024 08:00-0400 Systolic blood pressure 125 mm[Hg] Vi Trevino Jr., DO Work Phone: [facility] 11-19-2024 07:00-0400 Body height 185.4 cm Vi Trevino Jr., DO Work Phone: [facility] 11-19-2024 07:00-0400 Body mass index (BMI) [Ratio] 32.72 kg/m2 Vi Trevino Jr., DO Work Phone: [facility] 11-19-2024 07:00-0400 Body temperature 98.8 [degF] Vi Trevino Jr., DO Work Phone: [facility] 11-19-2024 07:00-0400 Body weight 112.49 kg Vi Trevino Jr., DO Work Phone: [facility] 11-05-2024 15:33-0400 Body mass index (BMI) [Ratio] 34.78 kg/m2 Shelly Broderick APRN.EMERY GRINDER Work Phone: [facility] 11-05-2024 15:33-0400 Body weight 119.57 kg Shelly Broderick ANTHROPOLOGY INSTRUCTOR.EMERY GRINDER Work Phone: [facility] 11-05-2024 15:33-0400 Diastolic blood pressure 80 mm[Hg] Shelly Broderick ANTHROPOLOGY INSTRUCTOR.EMERY GRINDER Work Phone: [facility] 11-05-2024 15:33-0400 Heart rate 76 /min Shelly Broderick ANTHROPOLOGY INSTRUCTOR.EMERY GRINDER Work Phone: [facility] 11-05-2024 15:33-0400 Respiratory rate 12 /min Shelly Broderick ANTHROPOLOGY INSTRUCTOR.EMERY GRINDER Work Phone: [facility] 11-05-2024 15:33-0400 SaO2% (BldA) [Mass fraction] 98 % Shelly Broderick ANTHROPOLOGY INSTRUCTOR.EMERY GRINDER Work Phone: [facility] 11-05-2024 15:33-0400 Systolic blood pressure 140 mm[Hg] Shelly Broderick ANTHROPOLOGY INSTRUCTOR.EMERY GRINDER Work Phone: [facility] 09-16-2024 02:01-0500 Body temperature 98.6 [degF] Dr. Simba Horton DO Work Phone: [facility] 09-16-2024 02:01-0500 Diastolic blood pressure 84 mm[Hg] Dr. Simba Horton DO Work Phone: [facility] 09-16-2024 02:01-0500 Heart rate 71 /min Dr. Simba Horton DO Work Phone: [facility] 09-16-2024 02:01-0500 Respiratory rate 18 /min Dr. Simba Horton DO Work Phone: [facility] 09-16-2024 02:01-0500 SaO2% (BldA) [Mass fraction] 99 % Dr. Simba Horton DO Work Phone: [facility] 09-16-2024 02:01-0500 Systolic blood pressure 128 mm[Hg] Dr. Simba Horton DO Work Phone: [facility] 09-15-2024 23:46-0500 Body mass index (BMI) [Ratio] 34.2 kg/m2 Dr. Simba Horton DO Work Phone: [facility] 09-15-2024 23:46-0500 Body weight 117.[address] Simba Horton DO Work Phone: [facility] 07-25-2024 13:03-0500 Body mass index (BMI) [Ratio] 33.16 kg/m2 Simba Horton DO Work Phone: [facility] 07-25-2024 13:03-0500 Body temperature 97.7 [degF] Simba Horton DO Work Phone: [facility] 07-25-2024 13:03-0500 Body weight 114 kg Simba Horton DO Work Phone: [facility] 07-25-2024 13:03-0500 Diastolic blood pressure 80 mm[Hg] Simba Horton DO Work Phone: [facility] 07-25-2024 13:03-0500 Heart rate 88 /min Simba Horton DO Work Phone: [facility] 07-25-2024 13:03-0500 Respiratory rate 16 /min Simba Horton DO Work Phone: [facility] 07-25-2024 13:03-0500 Systolic blood pressure 138 mm[Hg] Simba Horton DO Work Phone: [facility] 06-26-2024 09:52-0400 Body mass index (BMI) [Ratio] 33.3 kg/m2 Hang Colón APRN.EMERY GRINDER Work Phone: [facility] 06-26-2024 09:52-0400 Body temperature 98.1 [degF] Hang Colón APRN.EMERY GRINDER Work Phone: [facility] 06-26-2024 09:52-0400 Body weight 114.5 kg Hang Colón APRN.EMERY GRINDER Work Phone: [facility] 06-26-2024 09:52-0400 Diastolic blood pressure 88 mm[Hg] Hang Colón APRN.EMERY GRINDER Work Phone: [facility] 06-26-2024 09:52-0400 Heart rate 74 /min Hang Colón APRN.EMERY GRINDER Work Phone: [facility] 06-26-2024 09:52-0400 Respiratory rate 16 /min Hang Colón APRN.EMERY GRINDER Work Phone: [facility] 06-26-2024 09:52-0400 SaO2% (BldA) [Mass fraction] 96 % Hang Colón APRN.EMERY GRINDER Work Phone: [facility] 06-26-2024 09:52-0400 Systolic blood pressure 132 mm[Hg] Hang Colón APRN.EMERY GRINDER Work Phone: [facility] 06-12-2024 09:00-0400 Diastolic blood pressure 73 mm[Hg] Loraine Da Silva MD Work Phone: [facility] 06-12-2024 09:00-0400 Heart rate 83 /min Loraine Da Silva MD Work Phone: [facility] 06-12-2024 09:00-0400 Respiratory rate 16 /min Loraine Da Silva MD Work Phone: [facility] 06-12-2024 09:00-0400 SaO2% (BldA) [Mass fraction] 94 % Loraine Da Silva MD Work Phone: [facility] 06-12-2024 09:00-0400 Systolic blood pressure 113 mm[Hg] Loraine Da Silva MD Work Phone: [facility] 06-12-2024 08:30-0400 Body temperature 97.5 [degF] Loraine Da Silva MD Work Phone: [facility] 06-12-2024 07:42-0400 Body height 185.4 cm Loraine Da Silva MD Work Phone: [facility] 06-12-2024 07:42-0400 Body mass index (BMI) [Ratio] 30.34 kg/m2 Loraine Da Silva MD Work Phone: [facility] 06-12-2024 07:42-0400 Body weight 104.33 kg Loraine Da Silva MD Work Phone: [facility] 05-01-2024 08:46-0400 Body height 188 cm Simba Horton DO Work Phone: [facility] 05-01-2024 08:46-0400 Body mass index (BMI) [Ratio] 31.2 kg/m2 Simba Horton DO Work Phone: [facility] 05-01-2024 08:46-0400 Body temperature 97 [degF] Simba Horton DO Work Phone: [facility] 05-01-2024 08:46-0400 Body weight 110.22 kg Simba Horton DO Work Phone: [facility] 05-01-2024 08:46-0400 Diastolic blood pressure 80 mm[Hg] Simba Horton DO Work Phone: [facility] 05-01-2024 08:46-0400 Heart rate 80 /min Simba Horton DO Work Phone: [facility] 05-01-2024 08:46-0400 Respiratory rate 16 /min Simba Horton DO Work Phone: [facility] 05-01-2024 08:46-0400 Systolic blood pressure 124 mm[Hg] Simba Horton DO Work Phone: [facility] 04-18-2024 10:59-0400 Body mass index (BMI) [Ratio] 31.79 kg/m2 Sweetie Podlogar ANTHROPOLOGY INSTRUCTOR.EMERY GRINDER Work Phone: [facility] 04-18-2024 10:59-0400 Body weight 109.3 kg Sweetie Podlogar ANTHROPOLOGY INSTRUCTOR.EMERY GRINDER Work Phone: [facility] 04-18-2024 10:59-0400 Diastolic blood pressure 84 mm[Hg] Sweetie Podlogar ANTHROPOLOGY INSTRUCTOR.EMERY GRINDER Work Phone: [facility] 04-18-2024 10:59-0400 Heart rate 91 /min Sweetie Podlogar ANTHROPOLOGY INSTRUCTOR.EMERY GRINDER Work Phone: [facility] 04-18-2024 10:59-0400 Respiratory rate 18 /min Sweetie Podlogar ANTHROPOLOGY INSTRUCTOR.EMERY GRINDER Work Phone: [facility] 04-18-2024 10:59-0400 SaO2% (BldA) [Mass fraction] 98 % Sweetie Podlogar ANTHROPOLOGY INSTRUCTOR.EMERY GRINDER Work Phone: [facility] 04-18-2024 10:59-0400 Systolic blood pressure 122 mm[Hg] Sweetie Podlogar ANTHROPOLOGY INSTRUCTOR.EMERY GRINDER Work Phone: [facility] 03-20-2024 08:30-0400 Diastolic blood pressure 66 mm[Hg] Loraine Da Silva MD Work Phone: [facility] 03-20-2024 08:30-0400 Heart rate 73 /min Loraine Da Silva MD Work Phone: [facility] 03-20-2024 08:30-0400 Respiratory rate 16 /min Loraine Da Silva MD Work Phone: [facility] 03-20-2024 08:30-0400 SaO2% (BldA) [Mass fraction] 99 % Loraine Da Silva MD Work Phone: [facility] 03-20-2024 08:30-0400 Systolic blood pressure 115 mm[Hg] Loraine Da Silva MD Work Phone: [facility] 03-20-2024 08:00-0400 Body temperature 97 [degF] Loraine Da Silva MD Work Phone: [facility] 03-20-2024 07:21-0400 Body height 185.4 cm Loraine Da Silva MD Work Phone: [facility] 03-20-2024 07:21-0400 Body mass index (BMI) [Ratio] 30.34 kg/m2 Loraine Da Silva MD Work Phone: [facility] 03-20-2024 07:21-0400 Body weight 104.33 kg Loraine Da Silva MD Work Phone: [facility] 03-16-2024 14:52-0400 Body height 185.4 cm [facility] Comment on above: pt rpt 03-16-2024 14:52-0400 Body mass index (BMI) [Ratio] 30.08 kg/m2 [facility] 03-16-2024 14:52-0400 Body weight 103.42 kg [facility] Comment on above: pt rpt 12-20-2023 08:00-0400 Diastolic blood pressure 70 mm[Hg] Isai Martinez MD Work Phone: [facility] 12-20-2023 08:00-0400 Heart rate 79 /min Isai Martinez MD Work Phone: [facility] 12-20-2023 08:00-0400 Respiratory rate 18 /min Isai Martinez MD Work Phone: [facility] 12-20-2023 08:00-0400 SaO2% (BldA) [Mass fraction] 95 % Isai Martinez MD Work Phone: [facility] 12-20-2023 08:00-0400 Systolic blood pressure 115 mm[Hg] Isai Martinez MD Work Phone: [facility] 12-20-2023 07:50-0400 Body temperature 96.8 [degF] Isai Martinez MD Work Phone: [facility] 12-20-2023 07:02-0400 Body height 185.4 cm Isai Martinez MD Work Phone: [facility] 12-20-2023 07:02-0400 Body mass index (BMI) [Ratio] 30.08 kg/m2 Isai Martinez MD Work Phone: [facility] 12-20-2023 07:02-0400 Body weight 103.42 kg Isai Martinez MD Work Phone: [facility] 12-13-2023 15:20-0400 Body height 185.4 cm [facility] Work Phone: [place] [address]-16-2024 15:20-0400 Body weight 103.42 kg [facility] Work Phone: [facility] 12-02-2023 11:03-0400 Body weight 105.05 kg Shelly Broderick ANTHROPOLOGY INSTRUCTOR.EMERY GRINDER Work Phone: [facility] 12-02-2023 11:03-0400 Diastolic blood pressure 74 mm[Hg] Shelly Broderick ANTHROPOLOGY INSTRUCTOR.EMERY GRINDER Work Phone: [facility] 12-02-2023 11:03-0400 Heart rate 60 /min Shelly Broderick ANTHROPOLOGY INSTRUCTOR.EMERY GRINDER Work Phone: [facility] 12-02-2023 11:03-0400 Respiratory rate 12 /min Shelly Broderick ANTHROPOLOGY INSTRUCTOR.EMERY GRINDER Work Phone: [facility] 12-02-2023 11:03-0400 Systolic blood pressure 138 mm[Hg] Shelly Broderick ANTHROPOLOGY INSTRUCTOR.EMERY GRINDER Work Phone: [facility] 10-11-2023 10:23-0500 Body temperature 99.7 [degF] Cynthia Praisler-Wood ANTHROPOLOGY INSTRUCTOR.EMERY GRINDER Work Phone: [facility] 10-11-2023 10:23-0500 Body weight 104.24 kg Cynthia Praisler-Wood ANTHROPOLOGY INSTRUCTOR.EMERY GRINDER Work Phone: [facility] 10-11-2023 10:23-0500 Diastolic blood pressure 80 mm[Hg] Cynthia Praisler-Wood ANTHROPOLOGY INSTRUCTOR.EMERY GRINDER Work Phone: [facility] 10-11-2023 10:23-0500 Heart rate 87 /min Cynthia Praisler-Wood ANTHROPOLOGY INSTRUCTOR.EMERY GRINDER Work Phone: [facility] 10-11-2023 10:23-0500 Respiratory rate 16 /min Cynthia Praisler-Wood ANTHROPOLOGY INSTRUCTOR.EMERY GRINDER Work Phone: [facility] 10-11-2023 10:23-0500 SaO2% (BldA) [Mass fraction] 96 % Cynthia Praisler-Wood ANTHROPOLOGY INSTRUCTOR.EMERY GRINDER Work Phone: [facility] 10-11-2023 10:23-0500 Systolic blood pressure 122 mm[Hg] Cynthia Mahoney APRN.EMERY GRINDER Work Phone: [facility] 10-04-2023 11:06-0500 Heart rate 62 /min [facility] 10-04-2023 09:46-0500 Body height 185.42 cm [facility] 10-04-2023 09:46-0500 Body mass index (BMI) [Ratio] 30.6 kg/m2 [facility] 10-04-2023 09:46-0500 Body temperature 97.4 [degF] [facility] 10-04-2023 09:46-0500 Body weight 105.18 kg [facility] 10-04-2023 09:46-0500 Diastolic blood pressure 91 mm[Hg] [facility] 10-04-2023 09:46-0500 Respiratory rate 18 /min [facility] 10-04-2023 09:46-0500 SaO2% (BldA) [Mass fraction] 100 % [facility] 10-04-2023 09:46-0500 Systolic blood pressure 142 mm[Hg] [facility] 08-02-2023 18:22-0500 Body temperature 97.9 [degF] Yesica Athy PA-C Work Phone: [facility] 08-02-2023 18:22-0500 Body weight 108.86 kg Yesica Athy PA-C Work Phone: [facility] 08-02-2023 18:22-0500 Diastolic blood pressure 80 mm[Hg] Yesica Athy PA-C Work Phone: [facility] 08-02-2023 18:22-0500 Heart rate 80 /min Yesica Athy PA-C Work Phone: [facility] 08-02-2023 18:22-0500 Respiratory rate 16 /min Yesica Athy PA-C Work Phone: [facility] 08-02-2023 18:22-0500 SaO2% (BldA) [Mass fraction] 99 % Yesica Diaz PA-C Work Phone: [facility] 08-02-2023 18:22-0500 Systolic blood pressure 128 mm[Hg] Yesica Diaz PA-C Work Phone: [facility] 08-01-2023 15:50-0500 Body height 185.4 cm Robi Hendrickson MD Work Phone: [facility] 08-01-2023 15:50-0500 Body temperature 97.9 [degF] Robi Henrdickson MD Work Phone: [facility] 08-01-2023 15:50-0500 Body weight 108.68 kg Robi Hendrickson MD Work Phone: [facility] 08-01-2023 15:50-0500 Diastolic blood pressure 68 mm[Hg] Robi Hendrickson MD Work Phone: [facility] 08-01-2023 15:50-0500 Heart rate 77 /min Robi Hendrickson MD Work Phone: [facility] 08-01-2023 15:50-0500 SaO2% (BldA) [Mass fraction] 97 % Robi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 10-04-2023 Emergency department patient visit [facility] Work Phone: Start: 08-02-2023 End: 08-02-2023 Patient encounter procedure Yesica Diaz PA-C Work Phone: [facility] Comment on above: Exacerbation of asth ma, unspecified asthma severity, unspecified whether persistent (Primary Dx) Start: 08-02-2023 ambulatory Simba Hall son DO Work Phone: [facility] Comment on above: Asthma Start: 08-01-2023 End: 08-01-2023 Patient encounter procedure Robi Hendrickson MD Work Phone: Gastroenterology Comment on above: Eosinophilic esophag itis (Primary Dx) Start: 07-19-2023 End: 07-19-2023 Subsequent hospital visit by physician Loraine Da Silva MD Work Phone: Gastroenterology Comment on above: Esophageal stenosis [K22.2] Start: 07-12-2023 ambulatory Chai Carrillo RN Gastroent erology Start: 07-04-2023 End: 07-04-2023 Patient encounter procedure Tiffanie Norwood MD Work Phone: Endocrinology Comment on above: Low testosterone Start: 05-20-2023 Refill Simba calvo DO Work Phone: [facility] [place] Comment on above: Refill Request Start: 05-18-2023 Telephone encounter Simba stacy DO Work Phone: [facility] [place] Start: 05-13-2023 Telephone encounter Simba stacy DO Work Phone: [facility] [place] Start: 05-04-2023 ambulatory Simba calvo DO Work Phone: [facility] [place] Comment on above: Question regarding T ESTOSTERONE, FREE AND TOTAL Start: 05-04-2023 Telephone encounter Simba stacy DO Work Phone: [facility] [place] Comment on above: Results Start: 04-26-2023 End: 04-26-2023 Patient encounter procedure Simba Horton DO Work Phone: [facility] [place] Comment on above: Well adult exam (Nayana montanez Dx); Acute esophagitis; Eosinophilic esophagitis; Chronic gout of multiple sites, unspecified cause; Chronic pain of both shoulders; Bunion of great toe of left foot Start: 04-26-2023 End: 04-26-2023 Patient encounter status Simba Horton DO Work Phone: [facility] Work Phone: Start: 04-07-2023 ambulatory [facility] Sarmiento Comment on above: fmla papers Start: 04-07-2023 E-mail encounter william m caregiver [facility] [place] Start: 03-30-2023 ambulatory Simba calvo DO Work Phone: [facility] [place] Comment on above: 03/29/23 procedure Refill Request Start: 03-30-2023 Telephone encounter Shelly calvo ANTHROPOLOGY INSTRUCTOR.EMERY GRINDER Work Phone: [facility] [place] Comment on above: Appointment fmla forms Start: 03-29-2023 End: 03-29-2023 Subsequent hospital visit by physician Loraine Da Silva MD Work Phone: Gastroenterology Comment on above: Eosinophilic esophag itis [K20.0] Start: 02-14-2023 ambulatory Simba Hall son DO Work Phone: [facility] [place] Comment on above: sinus Start: 02-02-2023 End: 02-02-2023 Patient encounter procedure Sweetie Tyson ANTHROPOLOGY INSTRUCTOR.EMERY GRINDER Work Phone: [facility] [place] Comment on above: Mild intermittent as thma, uncomplicated (Primary Dx); Acute non-recurrent maxillary sinusitis Start: 01-31-2023 End: 01-31-2023 Patient encounter procedure Isis Petty ANTHROPOLOGY INSTRUCTOR.EMERY GRINDER Work Phone: [facility] Comment on above: Rhinosinusitis (Prim mustapha Dx) Start: 12-16-2022 Telephone encounter Shelly calvo ANTHROPOLOGY INSTRUCTOR.EMERY GRINDER Work Phone: [facility] [place] Comment on above: fax copy return to w ork letter Start: 12-13-2022 End: 12-13-2022 Subsequent hospital visit by physician Elma [facility] [place] Work Phone: Radiology Comment on above: Sprain of ligament o f left ankle, subsequent encounter [S93.402D] Start: 12-13-2022 End: 12-13-2022 Patient encounter procedure Shelly Broderick ANTHROPOLOGY INSTRUCTOR.EMERY GRINDER Work Phone: [facility] [place] Comment on above: Injury of left ankle , subsequent encounter (Primary Dx); Sprain of ligament of left ankle, subsequent encounter Start: 12-06-2022 ambulatory Shelly Broderick ANTHROPOLOGY INSTRUCTOR.EMERY GRINDER Work Phone: [facility] Comment on above: L ankle Start: 12-06-2022 End: 12-06-2022 Patient encounter procedure Shelly Broderick ANTHROPOLOGY INSTRUCTOR.EMERY GRINDER Work Phone: [facility] Comment on above: Sprain of ligament o f left ankle, subsequent encounter (Primary Dx); Injury of left ankle, subsequent encounter; Elevated BP without diagnosis of hypertension Start: 12-05-2022 End: 12-05-2022 [facility] Start: 11-25-2022 Refill Robi breen MD Work Phone: Gastroenterology Comment on above: Refill Request Start: 11-18-2022 ambulatory Simba calvo DO Work Phone: [facility] Comment on above: Bloating Start: 11-07-2022 End: 11-07-2022 [facility] Start: 11-03-2022 Refill Simba calvo DO Work Phone: [facility] Comment on above: Refill Request Start: 11-02-2022 End: 11-02-2022 Subsequent hospital visit by physician Yasmine Diaz MD Work Phone: Gastroenterology Comment on above: Esophagitis, eosinop hilic [K20.0] Start: 10-07-2022 ambulatory Winsome juarez ANTHROPOLOGY INSTRUCTOR.EMERY GRINDER Work Phone: Telemedicine Comment on above: Viral syndrome (Prim mustapha Dx) Start: 09-20-2022 Telephone encounter Simba stacy DO Work Phone: [facility] Comment on above: Forms Start: 06-29-2022 End: 06-29-2022 ambulatory Robi Hendrickson MD Work Phone: Gastroenterology Comment on above: Esophagitis, eosinop hilic (Primary Dx) Start: 06-29-2022 End: 06-29-2022 Telemedicine consultation with patient Robi Hendrickson MD Work Phone: [facility] Start: 05-19-2022 ambulatory Simba calvo DO Work Phone: Family [facility] [place] Comment on above: Wellness Exam Start: 05-18-2022 End: 05-18-2022 Subsequent hospital visit by physician Loraine Da Silva MD Work Phone: Gastroenterology Comment on above: Eosinophilic esophag itis [K20.0] Start: 05-17-2022 Telephone encounter Simba stacy DO Work Phone: [facility] [place] Comment on above: Orders Start: 05-11-2022 Telephone encounter Olesya Chan RN G astroenterology Comment on above: Appointment Confirma tion Start: 04-08-2022 Refill Simba calvo DO Work Phone: [facility] [place] Comment on above: Refill Request Start: 03-08-2022 End: 03-08-2022 Office outpatient visit 15 minutes Mary Del Rio PA-C Work Phone: [facility] Comment on above: Diarrhea, unspecifie d type (Primary Dx); URI, acute; Mild intermittent asthma, uncomplicated Start: 01-12-2022 Telephone encounter Sammy recio APRN.CNP Work Phone: [facility] Comment on above: Results Start: 01-12-2022 End: 01-12-2022 Patient encounter procedure Sammy Fish APRN.CNP Work Phone: [facility] Comment on above: Diarrhea, unspecifie d type (Primary Dx) Start: 12-07-2021 Refill Simba calvo DO Work Phone: [facility] [place] Comment on above: Refill Request Start: 05-20-2018 End: 05-20-2018 Emergency department [facility] Start: 09-22-2012 Patient encounter status Simba Clifford DO Work Phone: [facility] Work Phone: Start: 09-22-2012 Encounter for genera l adult medical examination without abnormal findings SIMBA HORTON [facility] Procedures Date Procedure Procedure Detail Performing Clinician Start: 01-28-2025 Esophagoscp rig transoral hypopharynx crv raghav Hendrickson MD Work Phone: Start: 11-27-2024 X-ray of knee, four or more views Dr. Simba Horton DO Work Phone: Start: 11-19-2024 Colonoscopy flx dx w/collj spec when pfrmd Robi Hendrickson MD Work Phone: Start: 11-19-2024 Colonoscopy Vi Uriel Linder, DO Work Phone: Start: 09-16-2024 X-ray of knee, four or more [address]. Simba Horton DO Work Phone: Start: 06-26-2024 Radiologic exam chest 2 views Hang Colón APRN.EMERY GRINDER Work Phone: Start: 06-26-2024 STREP A MOLECULAR (POC) [facility] Provider Start: 06-12-2024 Esophagoscp rig transoral hypopharynx crv raghav Hendrickson MD Work Phone: Start: 03-20-2024 Esophagoscp rig transoral hypopharynx crv raghav Hendrickson MD Work Phone: Start: 12-20-2023 Esophagoscp rig transoral hypopharynx crv raghav Hendrickson MD Work Phone: Start: 11-07-2023 MRI of joint of lower extremity Start: 10-11-2023 COVID & INFLUENZA A/B NAAT, ROUTINE Cynthia Mahoney APRN.EMERY GRINDER Work Phone: Start: 10-11-2023 STREP A MOLECULAR (POC) [facility] Provider Start: 10-04-2023 CT of head without contrast Start: 07-19-2023 Esophagoscp rig transoral hypopharynx crv raghav Hendrickson MD Work Phone: Start: 04-26-2023 Lipid 1996 panel - Serum or Plasma Simba Horton DO Work Phone: Start: 03-29-2023 Esophagoscp rig transoral hypopharynx crv ederoph Robi Hendrickson MD Work Phone: Start: 12-13-2022 Radex ankle complete minimum 3 views Shelly Broderick ANTHROPOLOGY INSTRUCTOR.EMERY GRINDER Work Phone: Start: 12-05-2022 Radiography of ankle Start: 11-02-2022 Esophagoscp rig transoral hypopharynx crv raghav Hendrickson MD Work Phone: Start: 05-18-2022 Esophagoscp rig transoral hypopharynx crv esoph Robi Hendrickson MD Work Phone: Start: 11-18-2021 Adult depression screening assessment Simba Horton DO Work Phone: Start: 01-21-2021 Colonoscopy Simba Horton DO Work Phone: History of operative procedure on knee Status post arthroscopic surgery of left knee Dr. Simba Horton DO Work Phone: History of operative procedure on knee S/P arthroscopic surgery of left knee Sebas Lawrence ANTHROPOLOGY INSTRUCTOR.BASEBALL UMPIRE FOR [employer] Work Phone: Plan of Treatment Date Care Activity Detail Author Start: 11-19-2034 Screening for malignant neoplasm of colon [facility] Start: 01-21-2031 Colonoscopy COLONOSCOPY [facility] Start: 01-21-2031 COLORECTAL CANCER SCREENING COLORECTAL CANCER SCREENING [facility] Start: 01-21-2031 Screening for malignant neoplasm of colon [facility] Start: 09-17-2029 Urine microalbumin profile [facility] Start: 04-26-2028 Lipid 1996 panel - Serum or Plasma Lipid Screening [facility] Start: 04-26-2028 Lipid panel Lipid Screening [facility] Start: 04-26-2028 LIPID SCREEN LIPID SCREEN [facility] Start: 04-24-2026 Annual PCP Team Chronic Disease Visit Annual PCP Team Chronic Disease Visit [facility] Start: 01-07-2026 Annual PCP Team Chronic Disease Visit Annual PCP Team Chronic Disease Visit [facility] Start: 11-05-2025 Annual PCP Team Chronic Disease Visit Annual PCP Team Chronic Disease Visit [facility] Start: 10-31-2025 LIPID SCREEN LIPID SCREEN [facility] Start: 07-25-2025 Annual PCP Team Chronic Disease Visit Annual PCP Team Chronic Disease Visit [facility] Start: 07-25-2025 Covid-19 Vaccine ( season) Covid-19 Vaccine ( season) [facility] Comment on above: Postponed from 04/29/2024 (Declined at t his time) Start: 07-10-2025 End: 07-10-2025 Patient encounter procedure 07/10/2025 3:40 PM EST Office Visit [facility] [place] [address] [place], [place] [id number] Simba Horton DO [address] [facility] [place] [id number] 6 month follow up [facility] [place] Comment on above: 6 month follow up Start: 05-01-2025 Annual PCP Team Chronic Disease Visit Annual PCP Team Chronic Disease Visit [facility] Start: 04-29-2025 Influenza vaccination [facility] Start: 04-18-2025 Annual PCP Team Chronic Disease Visit Annual PCP Team Chronic Disease Visit [facility] Start: 02-25-2025 Influenza vaccination Influenza Vaccine (#1) [place] [facility]osa Comment on above: Postponed from 04/29/2024 (Declined at t his time) Start: 01-28-2025 End: 01-28-2025 Patient encounter procedure 01/28/2025 4:00 PM EDT Appointment Gastroenterology [address] [place] [id number] Kenisha Newby MD [address] [address] Eosinophilic esophagitis [K20.0] Gastroenterology Comment on above: Eosinophilic esophagitis [K20.0] Start: 01-14-2025 End: 01-14-2025 ambulatory 01/14/2025 3:30 PM EDT [facility] [address] [facility] [place] [address] [facility] Start: 01-13-2025 End: 04-14-2025 CBC W Auto Differential panel - Blood COMPLETE BLOOD COUNT AND DIFFERENTIAL Lab Routine Leukocytosis, unspecified type Expected: 01/13/2025, Expires: 04/14/2025 [facility] Work Phone: Comment on above: Expected: 01/13/2025, Expires: Start: 01-07-2025 End: 01-07-2025 Patient encounter procedure 01/07/2025 3:00 PM EDT [facility] [address] [facility] [place] [id number] Simba Horton DO [address] [place] [address] 6 [facility] Comment [facility] above: 6 month follow up Start: 12-07-2024 End: 03-08-2025 CBC W Auto Differential panel - Blood [facility] Work Phone: Comment on above: Expected: 12/07/2024, Expires: Start: 12-07-2024 End: 03-08-2025 Comprehensive metabolic 2000 panel - Serum or Plasma [facility] Comment on above: Expected: 12/07/2024, Expires: Start: 12-07-2024 End: 03-08-2025 TSH W/REFLEX FT4 [facility] Comment on above: Expected: 12/07/2024, Expires: Start: 12-01-2024 Annual PCP Team Chronic Disease Visit Annual PCP Team Chronic Disease Visit [facility] Start: 12-01-2024 Covid-19 Vaccine ( season) Covid-19 Vaccine ( season) [facility] Comment on above: Postponed from 04/29/2023 (Declined at t his time) Start: 12-01-2024 Hepatitis B Vaccine (1 of 3 - 19+ 3-dose series) Hepatitis B Vaccine (1 of 3 - 19+ 3-dose series) [facility] Comment on above: Postponed from 2002 (Declined at t his time) Start: 11-27-2024 [facility] Start: 11-19-2024 End: 11-19-2024 Patient encounter procedure [facility] Endoscopy [facility] Comment on above: 11/16/24 LVM/MC to confirm arrival time/l oc. D.S. Start: 11-10-2024 End: 11-10-2024 Anesthesia consultation 11/10/2024 11:59 PM EDT Anesthesia Event [facility] Endoscopy [facility] [address] [place] [id number] Vick Plata ANTHROPOLOGY INSTRUCTORJOSÉ MIGUEL [facility] Endoscopy [facility] Start: 11-05-2024 End: 11-05-2024 Patient encounter procedure 11/05/2024 3:40 PM EDT Office Visit [facility] [address] [place], [place] [phone] Shelly Broedrick, ANTHROPOLOGY INSTRUCTOR.EMERY GRINDER [address] [place], [place] [phone] blood in stool Family [facility] Comment on above: blood in stool Start: 11-05-2024 End: 02-04-2025 CBC panel - Blood by Automated count COMPLETE BLOOD COUNT Lab Routine Rectal bleeding Expected: 11/05/2024, Expires: 02/04/2025 [facility] Work Phone: Comment on above: Expected: 11/05/2024, Expires: Start: 09-16-2024 [facility] Start: 08-28-2024 End: 08-28-2024 Patient encounter procedure 08/28/2024 9:00 AM EST [facility] [address] [place] [address] Tuan Puentes, ANTHROPOLOGY INSTRUCTOR.EMERY GRINDER [address] [place], [place] [phone] Osteoarthritis in knee/leg---UPDATE [facility] [place] Comment on above: Osteoarthritis in knee/leg---UPDATE INS Start: 07-25-2024 End: 07-25-2024 Patient encounter procedure 07/25/2024 1:20 PM EST Office Visit Family [facility] [address] [place] [address] Simba Horton, DO [address] [place] [address] R & L knee [facility] [place] Comment on above: R & L knee Start: 07-23-2024 End: 07-23-2024 Follow-up encounter 07/23/2024 4:00 PM EST [facility] Gastroenterology [address] [address] Robi Hendrickson MD [address] [place] [address] Follow up on Dupixent,MyChart request Gastroenterology Comment on above: Follow up on Dupixent,MyChart request Start: 07-06-2024 End: 07-06-2024 Follow-up encounter 07/06/2024 3:30 PM [facility] Gastroenterology [address] [address] Robi Hendrickson MD [address] [facility] [place] [address] Follow up on Dupixent,MyChart request Gastroenterology Comment on above: Follow up on Dupixent,MyChart request Start: 06-12-2024 End: 06-12-2024 Patient encounter procedure 06/12/2024 8:00 AM EDT Appointment Gastroenterology [address] [address] Loraine Da Silva MD [address] [place] [address] Biopsies of the proximal and distal esophagus, dilation if needed Gastroenterology Comment on above: Biopsies of the proximal and distal esop hagus, dilation if needed Start: 05-11-2024 End: 05-11-2024 ambulatory 05/11/2024 10:00 AM EDT Procedure Neurology [address] [place] [address] Ulnar Nerve (STANDARD) Neurology Comment on above: Ulnar Nerve (STANDARD) Start: 05-07-2024 End: 05-07-2024 ambulatory 05/07/2024 8:15 AM EDT Procedure Neurology 1 [facility] [place] [address] Numbness and tingling of hand [R20.0, R20.2] Neurology Comment on above: Numbness and tingling of hand [R20.0, R2 0.2] Start: 05-01-2024 End: 07-31-2024 Hemoglobin A1c in Blood [facility] Work Phone: Comment on above: Expected: 05/01/2024, Expires: Start: 05-01-2024 End: 07-31-2024 TESTOSTERONE, FREE AND TOTAL [facility] Comment on above: Expected: 05/01/2024, Expires: Start: 05-01-2024 End: 05-01-2024 Patient encounter procedure 05/01/2024 9:00 AM EDT Office Visit [facility] [place] [address] [place] [address], [place] [phone] Simba Horton DO [address] [place] [address] Wellness check [facility] [place] Comment on above: Wellness check Start: 04-29-2024 Covid-19 Vaccine ( season) Covid-19 Vaccine ( season) [facility] Start: 04-29-2024 Covid-19 Vaccine ( season) Covid-19 Vaccine ( season) [facility] Start: 04-29-2024 Influenza vaccination [facility] Start: 04-26-2024 ANNUAL PCP TEAM CHRONIC DISEASE VISIT ANNUAL PCP TEAM CHRONIC DISEASE VISIT [facility] Start: 04-26-2024 COVID-19 VACCINE (#1) COVID-19 VACCINE (#1) [facility] Comment on above: Postponed from 1985 (Declined at t his time) Start: 04-06-2024 End: 04-06-2024 Follow-up encounter 04/06/2024 4:30 PM EDT [facility] G[facility] [address] [address] Robi Hendrickson MD [address] [place] [address] Follow Up Eosinophilic esophagitis Gastroenterology Comment on above: Follow Up Eosinophilic esophagitis Start: 03-20-2024 End: 03-20-2024 Patient encounter procedure 03/20/2024 7:30 AM EDT Appointment Gastroenterology [address] [address] Loraine Da Silva MD [address] [place] [address] Eosinophilic esophagitis [K20.0]w Dilation/Esophageal biopsies, dilation with 20mm [facility] Comment on above: Eosinophilic esophagitis [K20.0]w Dilati on/Esophageal biopsies, dilation with 20mm [facility] Start: 03-16-2024 End: 03-16-2024 Anesthesia consultation 03/16/2024 3:00 PM EDT PAT Pre Anesthesia [address] [address] EGD 03/20 Pre Anesthesia Comment on above: EGD 03/20 Start: 03-07-2024 End: 03-07-2024 Patient encounter procedure 03/07/2024 4:20 PM EDT Office Visit Family Medicine [facility] [address] [place] [address] Shelly Broderick APRN.[facility] [address] [place] [address] 3 month f/up Family [facility] Comment on above: 3 month f/up Start: 02-14-2024 End: 02-14-2024 ambulatory 02/14/2024 4:00 PM EDT [facility] [address] [address] Robi Hendrickson MD [address] [place] [address] F/up EoE Gastroenterology Comment on above: F/up EoE Start: 02-03-2024 ANNUAL PCP TEAM CHRONIC DISEASE VISIT ANNUAL PCP TEAM CHRONIC DISEASE VISIT [facility] Start: 10-04-2023 [facility] Start: 05-04-2023 End: 07-04-2023 TESTOSTERONE, FREE AND TOTAL TESTOSTERONE, FREE AND TOTAL Lab Routine Testosterone deficiency Expected: 05/04/2023, Expires: 07/04/2023 [facility] Work Phone: Comment on above: Expected: 05/04/2023, Expires: 3 Start: 04-29-2023 Covid-19 Vaccine () Covid-19 Vaccine () [facility] Start: 04-29-2023 Influenza vaccination [facility] Start: 04-26-2023 End: 06-26-2023 Hemoglobin A1c in Blood [facility] Work Phone: Comment on above: Expected: 04/26/2023, Expires: 3 Start: 04-26-2023 End: 06-26-2023 TESTOSTERONE, FREE AND TOTAL [facility] Work Phone: Comment on above: Expected: 04/26/2023, Expires: 3 Start: 11-18-2022 Adult depression screening assessment DEPRESSION SCREENING [facility] Start: 11-18-2022 COVID-19 VACCINE (#1) COVID-19 VACCINE (#1) [facility] Comment on above: Postponed from 01/31/1988 (Declined at t his time) Postponed from 08/01 (Declined at this time) Start: 11-18-2022 COVID-19 VACCINE (1) COVID-19 VACCINE (1) [facility] Comment on above: Postponed from 01/31/1988 (Declined at t his time) Start: 04-29-2022 Influenza vaccination [facility] Start: 2010 HPV Vaccine (1 - 3-dose SCDM series) HPV Vaccine (1 - 3-dose SCDM series) [facility] Start: 2002 Hepatitis B Vaccine (1 of 3 - 19+ 3-dose series) Hepatitis B Vaccine (1 of 3 - 19+ 3-dose series) [facility] Start: 2001 HIV SCREENING HIV SCREENING [facility] Start: 2001 HIV screening HIV Screening [facility] Start: 2001 SPIROMETRY SPIROMETRY [facility] Start: 1989 PNEUMOCOCCAL (1 - PCV) PNEUMOCOCCAL (1 - PCV) [facility] Start: 1989 Pneumococcal vaccination Pneumococcal Vaccine (1 - PCV) [facility] Start: 1983 COVID-19 VACCINE (#1) COVID-19 VACCINE (#1) [facility] Start: 1983 HEPATITIS B (1 of 3 - 3-dose series) HEPATITIS B (1 of 3 - 3-dose series) [facility] Start: 1983 Hepatitis B Vaccine (1 of 3 - 3-dose series) Hepatitis B Vaccine (1 of 3 - 3-dose series) [facility] End: 06-29-2023 EGD - THERAPEUTIC, EUS, OR TUBE INTERVENTIONS EGD - THERAPEUTIC, EUS, OR TUBE INTERVENTIONS Endoscopy Routine Esophagitis, eosinophilic 1 Occurrences starting 06/29/2022 until 06/29/2023 [facility] Work Phone: Comment on above: 1 Occurrences starting 06/29/2022 until 06/29/2023 End: 11-06-2024 EGD - THERAPEUTIC, EUS, OR TUBE INTERVENTIONS EGD - THERAPEUTIC, EUS, OR TUBE INTERVENTIONS Endoscopy Routine Eosinophilic esophagitis 1 Occurrences starting 11/07/2023 until 11/06/2024 [facility] Work Phone: Comment on above: 1 Occurrences starting 11/07/2023 until 11/06/2024 End: 02-13-2025 EGD - THERAPEUTIC, EUS, OR TUBE INTERVENTIONS EGD - THERAPEUTIC, EUS, OR TUBE INTERVENTIONS Endoscopy Routine Eosinophilic esophagitis 1 Occurrences starting 02/14/2024 until 02/13/2025 [facility] Work Phone: Comment on above: 1 Occurrences starting 02/14/2024 until 02/13/2025 End: 04-18-2025 EMG(NEURO/NI) EMG(NEURO/NI) EMG Routine Numbness and tingling of hand 1 Occurrences starting 04/18/2024 until 04/18/2025 [facility] Work Phone: Comment on above: 1 Occurrences starting 04/18/2024 until 04/18/2025 ENTERIC BACTERIAL PANEL BY PCR ENTERIC BACTERIAL PANEL BY PCR Lab Routine Loose stools 07/25/2024 2:[address] [facility] Work Phone: End: 11-06-2025 Flexible sigmoidoscopy study COLONOSCOPY DIAGNOSTIC Endoscopy Routine Rectal bleeding 1 Occurrences starting 11/06/2024 until 11/06/2025 [facility] Work Phone: Comment on above: 1 Occurrences starting 11/06/2024 until 11/06/2025 Helicobacter pylori Ag [Presence] in Stool by Immunoassay HELICOBACTER PYLORI ANTIGEN BY EIA, STOOL Microbiology Routine Loose stools 07/25/2024 2:16 PM [facility] OCCULT BLD EXAM-DIAG OCCULT BLD EXAM-DIAG Microbiology Routine Blood in stool Ordered: 11/05/2024 [facility] Work Phone: Comment on above: Ordered: 11/05/2024 PANC ELASTASE, FECAL PANC ELASTA SE, FECAL Lab Routine Loose stools 07/25/2024 2:16 PM [facility] Patient Education [facility] Work Phone: Patient referral [facility] Work Phone: SARS-CoV-2 (COVID-19 ) RNA [Presence] in Respiratory specimen by JOY with probe detection 2019 CORONAVIRUS Microbiology Routine Diarrhea, unspecified type URI, acute 03/08/2022 8:[address] [facility] Work Phone: SURGICAL PATHOLOGY [facility] Work Phone: Comment on above: Release Upon Ordering for 1 Occurrences starting 05/18/2022, [address] [facility] Work Phone: Comment on above: Release Upon Ordering for 1 Occurrences starting 11/02/2022, [address] [facility] Work Phone: Comment on above: Release Upon Ordering for 1 Occurrences starting 03/29/2023, [address] [facility] Work Phone: Comment on above: Release Upon Ordering for 1 Occurrences starting 07/19/2023, [address] [facility] Work Phone: Comment on above: Release Upon Ordering for 1 Occurrences starting 03/20/2024, [address] [facility] Work Phone: Comment on above: Release Upon Ordering for 1 Occurrences starting 06/12/2024, 1 completed TESTOSTERONE, FREE A ND TOTAL TESTOSTERONE, FREE AND TOTAL Lab Routine Testosterone deficiency 05/05/2023 4:[address] [facility] Work Phone: End: 01-12-2024 XR ANKLE GENERAL 3V AP/LAT/OBL LEFT XR ANKLE GENERAL 3V AP/LAT/OBL LEFT Radiology Routine Sprain of ligament of left ankle, subsequent encounter Injury of left ankle, subsequent encounter 1 Occurrences starting 12/13/2022 until 01/12/2024 [facility] Work Phone: Comment on above: 1 Occurrences starting 12/13/2022 until 01/12/2024 XR ANKLE GENERAL 3V AP/LAT/OBL LEFT XR ANKLE GENERAL 3V AP/LAT/OBL LEFT Radiology Routine Sprain of ligament of left ankle, subsequent encounter Injury of left ankle, subsequent encounter 12/13/2022 12:[address] [facility] Work Phone: End: 01-18-2026 XR Esophagus Views W contrast PO XR ESOPHAGRAM Radiology Routine Esophageal dysphagia 1 Occurrences starting 12/19/2024 until 01/18/2026 [facility] Work Phone: Comment on above: 1 Occurrences starting 12/19/2024 until 01/18/2026 [facility] Immunizations Immunization Date Immunization Notes Care Provider Jamari cohen 09-17-2019 tetanus toxoid, redu toney diphtheria toxoid, and acellular pertussis vaccine, adsorbed Simba Horton DO Work Phone: [facility] 08-13-2019 influenza, injectabl e, quadrivalent, contains preservative Simba Horton DO Work Phone: [facility] Work Phone: 08-13-2019 influenza virus vaccine, unspecified formulation Simba Horton DO Work Phone: [facility] Payers Date Payer Category Payer Private Health Insurance [id number] 2024 Unknown [id number] 2024 Medicaid [id number] 2024 Self-pay [id number] 2021 Private Health Insurance FLORIDALMAALISSON Bob SLIMMaicol OAP [id number] 2021-Present [phone] [address] [place] [address] Open Access [id number] 2021 Unknown [employer] PPO OOS [id number] 2021-Present [phone] [address] [place] [address] PPO [id number] 2021 Unknown [id number] 2018 Private Health Insurance [id number] 2018 Unknown [id number] 2013 Unknown [id number] 1983 Unknown [id number] Private Health Insurance [id number] Unknown [facility] [id number] Unknown [id number] Unknown [id number] Unknown [id number] Unknown [id number] Unknown [id number] Unknown [id number] Unknown [id number] Social History Date Type Detail Facility Start: 08-05-2014 End: 11-27-2024 Tobacco smoking status NDIS Never smoked tobacco [facility] Start: 11-18-2021 End: 04-24-2025 Alcohol intake Current drinker of alcohol (finding) [facility] Start: 11-18-2021 End: 02-02-2023 Alcohol intake [facility] Start: 03-09-2020 End: 02-01-2022 History SDOH Alcohol Frequency 4 [facility] Start: 03-09-2020 End: 12-05-2022 History SDOH Alcohol Std Drinks 2 [facility] Start: 03-09-2020 End: 12-05-2022 History SDOH Alcohol Binge 3 [facility] Start: 03-09-2020 End: 12-05-2022 History SDOH Social Connections Membership 1 [facility] Start: 03-09-2020 History SDOH Social Connections Living 8 [facility] Start: 03-09-2020 End: 12-05-2022 History SDOH Physical Activity DPW 5 [facility] Start: 03-08-2020 Education 21 [facility] Start: 1985 Sex Assigned At Not on file [facility] Start: 11-08-2021 End: 05-18-2022 Exposure to SARS-CoV-2 (event) Not sure [facility] Work Phone: Start: 02-01-2022 History SDOH Physica l Activity DPW 6 [facility] Start: 02-01-2022 End: 12-05-2022 History SDOH Physical Activity MPS 7 [facility] Start: 08-05-2014 Tobacco use and exposure Smoke less tobacco non-user [facility] Start: 11-02-2022 Alcohol Comment occasional alcohol u se [facility] Start: 11-07-2022 End: 10-04-2023 Tobacco smoking status NHIS Unknown if ever smoked [facility] Start: 1985 Sex Assigned At Male W [facility] Start: 12-05-2022 History SDOH Physica l Activity MPS 15 [facility] Start: 12-05-2022 End: 02-02-2023 Social connection and isolation panel [facility] Do you belong to any clubs or organizations such as ep[employer]opalian groups, [employer], [employer] or athletic groups, or school groups? Yes [facility] Are you now , , , , never or living with a partner? [facility] How often to you hav e a drink containing alcohol? 2-4 times a month [facility] How many standard dr inks containing alcohol do you have on a typical day? 1 or 2 [facility] How often do you hav e 6 or more drinks on 1 occasion? Less than monthly [facility] Start: 07-30-2012 How hard is it for y ou to pay for the very basics like food, housing, medical care, and heating Not hard at all [facility] Do you feel stress - tense, restless, nervous, or anxious, or unable to sleep at night because your mind is troubled all the time - these days [OSQ] Not at all [facility] (I/We) worried josé luis er (my/our) food would run out before (I/we) got money to buy more. Never true [facility] In the past 12 month s, was there a time when you were not able to pay the mortgage or rent on time? No [facility] Start: 03-23-2023 Gender identity Identifies as male gender (finding) [facility] How many standard dr inks containing alcohol do you have on a typical day? 3 or 4 [facility] How often do you hav e 6 or more drinks on 1 occasion? Monthly [facility] How hard is it for y ou to pay for the very basics like food, housing, medical care, and heating Somewhat hard [facility] Do you feel stress - tense, restless, nervous, or anxious, or unable to sleep at night because your mind is troubled all the time - these days [OSQ] Very much [facility] (I/We) worried [facility] (my/our) food would run out before (I/we) got money to buy more. Sometimes true [facility] Start: 11-27-2024 Sex Male (finding) [facility] Start: 01-28-2025 Alcohol Comment a few drinks a week [facility] How often to you hav e a drink containing alcohol? Monthly or less [facility] How often do you hav e 6 or more drinks on 1 occasion? Never [facility] Do you feel stress - tense, restless, nervous, or anxious, or unable to sleep at night because your mind is troubled all the time - these days [OSQ] To some extent [facility] Functional Status Date Assessment Result Facility 04-24-2025 Total score [AUDIT-C] 1 04/24/20 9:31 AM EDT Ramakrishna Mcdermott [facility] 04-24-2025 How often to you hav e a drink containing alcohol? Monthly or less 04/24/2025 9:31 AM EDT Ramakrishna Mcdermott Monthly or less [facility] 04-24-[address] inks containing alcohol do you have on a typical day? 1 or 2 04/24/2025 9:31 AM EDT Ramakrishna Mcdermott 1 or 2 [facility] 04-24-2025 How often do you hav e 6 or more drinks on 1 occasion? Never 04/24/2025 9:31 AM EDT Ramakrishna Mcdermott Never [facility] 11-20-2014 Are you deaf, or do you have serious difficulty hearing No 11/20/2014 10:49 AM EDT Ximena Dsouza RN No [facility] 11-20-2014 Are you blind, or do you have serious difficulty seeing, even when wearing glasses No 11/20/2014 10:49 AM JUAN JT Ximena Dsouza RN No [facility] 11-20-2014 Do you have serious difficulty walking or climbing stairs No 11/20/2014 10:49 AM JUAN JT Ximena Dsouza RN No [facility] 11-20-2014 Do you have difficul ty dressing or bathing No 11/20/2014 10:49 AM Ximena Cunningham RN No [facility] 11-20-2014 Because of a physica l, mental, or emotional condition, do you have difficulty doing errands alone such as visiting a physician's office or shopping No 11/20/2014 10:49 AM JUAN JT Ximena Dsouza RN No [facility] Mental Status Date Assessment Result Facility 11-27-2024 Cognitive function Level Of Cons ciousness Awake;Alert;Appropriate;Fol lows Commands [facility] Work Phone: 11-20-2014 Because of a physica l, mental, or emotional condition, do you have serious difficulty concentrating, remembering, or making decisions No 11/20/2014 10:49 AM EDT Ximena Dsouza RN No [facility] Clinical Notes 11-19-2020 to 04-30-2025 Telephone Encounter - Tuan Puentes APRN.CNP - 04/30/2025 1:02 PM EDTTelephone Encounter - Tuan Puentes APRN.CNP - 04/30/2025 1:02 PM EDTSTuan giraldo APRN.CNP - 04/24/2025 2:03 PM EDT Note Date & Type Note Facility 04-30-2025 Telephone encounter Note The following approved medication requests have been transmitted electronically. Requested Prescriptions Signed Prescriptions Disp Refills doxycycline hyclate (VIBRAMYCIN) 100 mg capsule 20 capsule 0 Sig: Take 1 capsule by mouth two times a day for 10 days. Tuan Puentes APRN.CNP [facility] 04-30-2025 Miscellaneous Notes The following approved medication requests have been transmitted electronically. Requested Prescriptions Signed Prescriptions Disp Refills doxycycline hyclate (VIBRAMYCIN) 100 mg capsule 20 capsule 0 Sig: Take 1 capsule by mouth two times a day for 10 days. Tuan Puentes APRN.CNP documented in this encounter [facility] 04-24-2025 Note HNO ID: [id number] Author: TUAN PUENTES APRN.CNP Service: ? Author Type: Nurse Practitioner Type: Progress Notes Filed: 04/24/2025 14:15 Note Text: 04/24/2025 Recording using [employer] software for draft documentation of the visit was discussed with the patient/authorized medicare sales representative; all questions welcomed and answered. Patient/authorized medicare sales representative agreed to proceed HPI: The patient is a 40-year-old male presenting for evaluation of acute facial pressure and postnasal drip. Sinus Pressure and Post-Nasal Drip: - Onset: Tuesday afternoon/evening, approximately 2 days ago. - Initial symptom: Post-nasal drip. - Current symptoms: - Sinus pressure behind the eyes and throughout the head. - Ear popping with mild pain. - Coughing, likely due to post-nasal drainage. - No known exposure to sick contacts. - No fever, but Carl reports feeling on fire. - No sore throat. Arthritis: - Carl reports increased joint pain. - Carl is taking medication for arthritis. PAST MEDICAL HISTORY Diagnosis Date Acute right-sided back pain with sciatica Arthritis Asthma (HCC) Awareness under anesthesia Dysthymia 02/03/2022 Eosinophilic esophagitis THA (generalized anxiety disorder) Generalized anxiety disorder Obstructive sleep apnea Palpitations Seasonal allergies Well adult exam Current Outpatient Medications on File Prior to Visit Medication Sig furosemide (LASIX) 20 mg tablet Take 1 tablet by mouth once daily as needed (leg edema). As needed for leg edema traZODone (DESYREL) 100 mg tablet TAKE 1 TO 2 TABLETS BY MOUTH ONCE DAILY AT BEDTIME celecoxib (CELEBREX) 100 mg capsule Take 1 capsule by mouth two times a day. As needed for joint pain, take with food sertraline (ZOLOFT) 100 mg tablet Take 1 tablet by mouth once daily. allopurinol (ZYLOPRIM) 100 mg tablet Take 1 tablet by mouth once daily. For gout. dupilumab (DUPIXENT PEN) 300 mg/2 mL pen injection Inject 300 mg subcutaneously one time a week. For eosinophilic esophagitis; ICD10 = K20.0 EPINEPHrine (EPIPEN) 0.3 mg/0.3 mL auto-injector Inject at onset of bee venom sting omeprazole (PRILOSEC) 40 mg capsule Take 1 capsule by mouth two times a day. Take 30 min before breakfast and dinner albuterol HFA (PROAIR HFA) 90 mcg/actuation inhaler Inhale 2 Puffs as instructed every 4 hours as needed. cyclobenzaprine (FLEXERIL) 10 mg tablet Take 1 tablet by mouth three times a day as needed for muscle spasm. fluticasone (FLONASE) 50 mcg/actuation nasal spray Use 1 [place] in each nostril daily at bedtime. montelukast (SINGULAIR) 10 mg tablet Take 1 tablet by mouth daily at bedtime. amino acids (BCAA ORAL) Take by mouth once daily. cetirizine (ZYRTEC) 10 mg tablet Take 10 mg by mouth once daily. No current facility-administered medications on file prior to visit. Review of Systems: Constitutional: (+) malaise, (-) fever Head: (+) sinus pressure Ears/Nose/Mouth/Throat: (+) postnasal drainage, (+) ear popping, (+) ear pain Respiratory: (+) cough Musculoskeletal: (+) joint pain Physical Exam: BP 118/84 (BP Site: Left Arm, BP Position: Sitting, BP Cuff Size: Large Adult) Pulse 89 Temp 36.9 ?C (98.5 ?F) Wt 111.2 kg (245 lb 3.2 oz) SpO2 99% BMI 32.35 kg/m? GENERAL: NAD, alert and oriented SKIN: Unremarkable, no rash or skin lesions. HEAD: Normocephalic EYES: PERRLA, EOMI, conjunctiva clear EARS: External ears normal, canals clear, TM's normal. NOSE/SINUSES: Nares normal. Septum midline. OROPHARYNX: Lips, mucosa, and tongue normal, good dentition. No oral lesions noted. Post-nasal drainage observed. LUNGS: Clear to auscultation bilaterally, no wheezes/rhonchi/rales. HEART: Regular rate and rhythm, no murmurs. No ectopy. EXTREMITIES: Normal, no deformities, no skin discoloration, no edema. NEURO: Awake, alert and oriented x3, cranial nerves II-XII grossly intact, normal gait, no involuntary motions PSYCHIATRIC: pleasant, cooperative Assessment/Plan: 1. Acute non-recurrent pansinusitis (J01.40) 2. PND (post-nasal drip) (R09.82) 3. Body aches (R52) - Symptoms began Tuesday afternoon/evening (2 days ago): initial post-nasal drainage, now diffuse sinus pressure (frontal, periorbital), mild otalgia with ear popping, and cough likely secondary to post-nasal drip; no documented fever, but patient reports feeling febrile. - Exam: No pharyngeal exudate or erythema; no lower respiratory involvement on auscultation. - Discussed that etiology may be viral or bacterial; explained rationale for empiric antibiotic therapy given patient's desire for rapid improvement due to upcoming competition. - Start Z-Arslan as empiric antibiotic therapy. - Start Medrol to reduce inflammation and expedite symptom relief. - Start Mucinex DM BID for 7-10 days to promote expectoration and reduce post-nasal drip. - Discussed that if etiology is viral, antibiotics may not be effective, but (more content not included)... [facility] 04-24-2025 History of Presen t illness Narrative 04/24/2025 Recording using [employer] software for draft documentation of the visit was discussed with the patient/authorized medicare sales representative; all questions welcomed and answered. Patient/authorized medicare sales representative agreed to proceed HPI: The patient is a 40-year-old male presenting for evaluation of acute facial pressure and postnasal drip. Sinus Pressure and Post-Nasal Drip: - Onset: Tuesday afternoon/evening, approximately 2 days ago. - Initial symptom: Post-nasal drip. - Current symptoms: - Sinus pressure behind the eyes and throughout the head. - Ear popping with mild pain. - Coughing, likely due to post-nasal drainage. - No known exposure to sick contacts. - No fever, but Carl reports feeling on fire. - No sore throat. Arthritis: - Carl reports increased joint pain. - Carl is taking medication for arthritis. PAST MEDICAL HISTORY Diagnosis Date Acute right-sided back pain with sciatica Arthritis Asthma (HCC) Awareness under anesthesia Dysthymia 02/03/2022 Eosinophilic esophagitis THA (generalized anxiety disorder) Generalized anxiety disorder Obstructive sleep apnea Palpitations Seasonal allergies Well adult exam Current Outpatient Medications on File Prior to Visit Medication Sig furosemide (LASIX) 20 mg tablet Take 1 tablet by mouth once daily as needed (leg edema). As needed for leg edema traZODone (DESYREL) 100 mg tablet TAKE 1 TO 2 TABLETS BY MOUTH ONCE DAILY AT BEDTIME celecoxib (CELEBREX) 100 mg capsule Take 1 capsule by mouth two times a day. As needed for joint pain, take with food sertraline (ZOLOFT) 100 mg tablet Take 1 tablet by mouth once daily. allopurinol (ZYLOPRIM) 100 mg tablet Take 1 tablet by mouth once daily. For gout. dupilumab (DUPIXENT PEN) 300 mg/2 mL pen injection Inject 300 mg subcutaneously one time a week. For eosinophilic esophagitis; ICD10 = K20.0 EPINEPHrine (EPIPEN) 0.3 mg/0.3 mL auto-injector Inject at onset of bee venom sting omeprazole (PRILOSEC) 40 mg capsule Take 1 capsule by mouth two times a day. Take 30 min before breakfast and dinner albuterol HFA (PROAIR HFA) 90 mcg/actuation inhaler Inhale 2 Puffs as instructed every 4 hours as needed. cyclobenzaprine (FLEXERIL) 10 mg tablet Take 1 tablet by mouth three times a day as needed for muscle spasm. fluticasone (FLONASE) 50 mcg/actuation nasal spray Use 1 [place] in each nostril daily at bedtime. montelukast (SINGULAIR) 10 mg tablet Take 1 tablet by mouth daily at bedtime. amino acids (BCAA ORAL) Take by mouth once daily. cetirizine (ZYRTEC) 10 mg tablet Take 10 mg by mouth once daily. No current facility-administered medications on file prior to visit. Review of Systems: Constitutional: (+) malaise, (-) fever Head: (+) sinus pressure Ears/Nose/Mouth/Throat: (+) postnasal drainage, (+) ear popping, (+) ear pain Respiratory: (+) cough Musculoskeletal: (+) joint pain Physical Exam: BP 118/84 (BP Site: Left Arm, BP Position: Sitting, BP Cuff Size: Large Adult) Pulse 89 Temp 36.9 C (98.5 F) Wt 111.2 kg (245 lb 3.2 oz) SpO2 99% BMI 32.35 kg/m GENERAL: NAD, alert and oriented SKIN: Unremarkable, no rash or skin lesions. HEAD: Normocephalic EYES: PERRLA, EOMI, conjunctiva clear EARS: External ears normal, canals clear, TM's normal. NOSE/SINUSES: Nares normal. Septum midline. OROPHARYNX: Lips, mucosa, and tongue normal, good dentition. No oral lesions noted. Post-nasal drainage observed. LUNGS: Clear to auscultation bilaterally, no wheezes/rhonchi/rales. HEART: Regular rate and rhythm, no murmurs. No ectopy. EXTREMITIES: Normal, no deformities, no skin discoloration, no edema. NEURO: Awake, alert and oriented x3, cranial nerves II-XII grossly intact, normal gait, no involuntary motions PSYCHIATRIC: pleasant, cooperative Assessment/Plan: 1. Acute non-recurrent pansinusitis (J01.40) 2. PND (post-nasal drip) (R09.82) 3. Body aches (R52) - Symptoms began Tuesday afternoon/evening (2 days ago): initial post-nasal drainage, now diffuse sinus pressure (frontal, periorbital), mild otalgia with ear popping, and cough likely secondary to post-nasal drip; no documented fever, but patient reports feeling febrile. - Exam: No pharyngeal exudate or erythema; no lower respiratory involvement on auscultation. - Discussed that etiology may be viral or bacterial; explained rationale for empiric antibiotic therapy given patient's desire for rapid improvement due to upcoming competition. - Start Z-Arslan as empiric antibiotic therapy. - Start Medrol to reduce inflammation and expedite symptom relief. - Start Mucinex DM BID for 7-10 days to promote expectoration and reduce post-nasal drip. - Discussed that if etiology is viral, antibiotics may not be effective, but steroids should provide symptomatic relief within 12-24 hours. - Advised to monitor for changes or worsening symptoms and to notify if condition does not improve. - declines COVID testing The patient indicates understanding of these issues and agrees with the plan. Red flag symptoms reviewed as needed. Follow up: Tuan Puentes APRN.CNP documented in this encounter [facility] 03-15-2025 Telephone encounter Note [facility] and [facility]. All prescriptions have been APPROPRIATELY filled. No suspicious activity was identified. 03/15/2025 by Shelly Broderick APRN.CNP The following approved medication requests have been transmitted electronically. Requested Prescriptions Signed Prescriptions Disp Refills ALPRAZolam (XANAX) 0.25 mg tablet 30 tablet 0 Sig: Take 1 tablet by mouth as needed for up to 30 days. Authorizing Provider: SHELLY BRODERICK APRN.CNP [facility] 03-15-2025 Miscellaneous Notes PDMP website checked and validated. All prescriptions have been APPROPRIATELY filled. No suspicious activity was identified. 03/15/2025 by Shelly Brodeirck APRN.CNP The following approved medication requests have been transmitted electronically. Requested Prescriptions Signed Prescriptions Disp Refills ALPRAZolam (XANAX) 0.25 mg tablet 30 tablet 0 Sig: Take 1 tablet by mouth as needed for up to 30 days. Authorizing Provider: SHELLY BRODERICK APRN.CNP Prescription Refill Information The patient has been identified by name and date of : Yes Caregiver verified no other encounters exist for this prescription request: Yes Caregiver confirmed with patient/requestor that no other refills are due, in the near future, with this provider at this time: Yes The last office visit in the department: Visit date not found Does the patient have a future office visit with this provider/department: Yes Requested Prescriptions Pending Prescriptions Disp Refills ALPRAZolam (XANAX) 0.25 mg tablet 30 tablet 0 Sig: Take 1 tablet by mouth as needed for up to 30 days. Maria De Jesus Chang MA March 14, 2025 8:32 AM documented in this encounter [facility] 03-14-2025 Telephone encounter Note Prescription Refill Information The patient has been identified by name and date of : Yes Caregiver verified no other encounters exist for this prescription request: Yes Caregiver confirmed with patient/requestor that no other refills are due, in the near future, with this provider at this time: Yes The last office visit in the department: 01/07/25 Does the patient have a future office visit with this provider/department: Yes Requested Prescriptions Pending Prescriptions Disp Refills furosemide (LASIX) 20 mg tablet 30 tablet 1 Sig: Take 1 tablet by mouth once daily as needed (leg edema). As needed for leg edema Dena Morelos LPN March 14, 2025 9:31 AM [facility] 03-14-2025 Miscellaneous Notes Prescription Refill Information The patient has been identified by name and date of : Yes Caregiver verified no other encounters exist for this prescription request: Yes Caregiver confirmed with patient/requestor that no other refills are due, in the near future, with this provider at this time: Yes The last office visit in the department: 01/07/25 Does the patient have a future office visit with this provider/department: Yes Requested Prescriptions Pending Prescriptions Disp Refills furosemide (LASIX) 20 mg tablet 30 tablet 1 Sig: Take 1 tablet by mouth once daily as needed (leg edema). As needed for leg edema Dena Morelos LPN March 14, 2025 9:31 AM documented in this encounter [facility] 03-14-2025 Telephone encounter Note Prescription Refill Information The patient has been identified by name and date of : Yes Caregiver verified no other encounters exist for this prescription request: Yes Caregiver confirmed with patient/requestor that no other refills are due, in the near future, with this provider at this time: Yes The last office visit in the department: Visit date not found Does the patient have a future office visit with this provider/department: Yes Requested Prescriptions Pending Prescriptions Disp Refills ALPRAZolam (XANAX) 0.25 mg tablet 30 tablet 0 Sig: Take 1 tablet by mouth as needed for up to 30 days. Maria De Jesus Chang MA March 14, 2025 8:32 AM [facility] 03-06-2025 Telephone encounter Note Per office note 01/07 patient had RT knee surgery and seen for continuous issues 5. Bilateral leg edema - ICD9: 782.3, ICD10: R60.0 rx for meloxicam to use as needed daily with food Rare use of prednisone for severe flare up in joint pains only Use of lasix for edema with travel mostly - prn use - FUROSEMIDE 20 MG TABLET Orin Dillon MA [facility] 03-06-2025 Miscellaneous Notes Per office note 01/07 patient had RT knee surgery and seen for continuous issues 5. Bilateral leg edema - ICD9: 782.3, ICD10: R60.0 rx for meloxicam to use as needed daily with food Rare use of prednisone for severe flare up in joint pains only Use of lasix for edema with travel mostly - prn use - FUROSEMIDE 20 MG TABLET Orin Dillon MA documented in this encounter [facility] 02-26-2025 Telephone encounter Note Images from the original note were not included. Per pt's MyChart msg last evening: Carl Zepeda [facility] My Chart Rx Pool (supporting Simba Horton DO) AC 02/25/25 5:05 PM I was able to go this afternoon by taking a bit more laxative. I will continue to monitor. I was not able to do a virtual visit today. [facility] 02-26-2025 Miscellaneous Notes Images from the original note were not included. Per pt's MyChart msg last evening: Carl Gross to P [facility] My Chart Rx Pool (supporting Simba Horton DO) AC 02/25/25 5:05 PM I was able to go this afternoon by taking a bit more laxative. I will continue to monitor. I was not able to do a virtual visit today. Called and left a voicemail for the Patient to call back and ask for a triage nurse to go over his MyChart message about not having a BM in 2 weeks. Becca Trujillo RN Left vm for patient to return call to triage nurse for questions regarding his MC message. No BM in 2 weeks. documented in this encounter [facility] 02-25-2025 Telephone encounter Note Called and left a voicemail for the Patient to call back and ask for a triage nurse to go over his MyChart message about not having a BM in 2 weeks. Becca Trujillo RN [facility] 02-25-2025 Telephone encounter Note Left vm for patient to return call to triage nurse for questions regarding his MC message. No BM in 2 weeks. [facility] 02-25-2025 Telephone encounter Note Added patient to triage schedule Orin Dillon MA [facility] 02-25-2025 Miscellaneous Notes Added patient to triage schedule Orin Dillon MA documented in this encounter [facility] 01-28-2025 History and physical note PROCEDURAL SEDATION HISTORY AND PHYSICAL EXAM SERVICE DATE: 01/28/2025 SERVICE TIME: 1408 Subjective HPI: This is a 39 year old male who presents with eosinophilic esophagitis, dysphagia PAST ANESTHESIA HISTORY:No history of adverse event PAST MEDICAL HISTORY Diagnosis Date Acute right-sided back pain with sciatica Arthritis Asthma (HCC) Awareness under anesthesia Dysthymia 02/03/2022 Eosinophilic esophagitis THA (generalized anxiety disorder) Generalized anxiety disorder Obstructive sleep apnea Palpitations Seasonal allergies Well adult exam PAST SURGICAL HISTORY Procedure Laterality Date ABDOMINAL SURGERY HX APPENDECTOMY HX 2020 COLONOSCOPY 01/21/2021 EGD 10/22/2020 Active esophagitis with increased intraepithelial eosinophils,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 EGD 01/21/2021 PAST SURGICAL HISTORY OF 02/2012 left foot surgery PAST SURGICAL HISTORY OF 2009 repair tendon right hand PAST SURGICAL HISTORY OF 05/2018 Throat PAST SURGICAL HISTORY OF Right 12/05/2023 arthroscopic knee- meniscus repair SINUS SURGERY HX 2015 Prior to Admission medications as of 12/07/24 1403 Medication Sig Last Dose Taking traZODone (DESYREL) 100 mg tablet TAKE 1 TO 2 TABLETS BY MOUTH ONCE DAILY AT BEDTIME celecoxib (CELEBREX) 100 mg capsule Take 1 capsule by mouth two times a day. As needed for joint pain, take with food sertraline (ZOLOFT) 100 mg tablet Take 1 tablet by mouth once daily. furosemide (LASIX) 20 mg tablet Take 1 tablet by mouth once daily as needed (leg edema). As needed for leg edema allopurinol (ZYLOPRIM) 100 mg tablet Take 1 tablet by mouth once daily. For gout. dupilumab (DUPIXENT PEN) 300 mg/2 mL pen injection Inject 300 mg subcutaneously one time a week. For eosinophilic esophagitis; ICD10 = K20.0 EPINEPHrine (EPIPEN) 0.3 mg/0.3 mL auto-injector Inject at onset of bee venom sting omeprazole (PRILOSEC) 40 mg capsule Take 1 capsule by mouth two times a day. Take 30 min before breakfast and dinner albuterol HFA (PROAIR HFA) 90 mcg/actuation inhaler Inhale 2 Puffs as instructed every 4 hours as needed. cyclobenzaprine (FLEXERIL) 10 mg tablet Take 1 tablet by mouth three times a day as needed for muscle spasm. fluticasone (FLONASE) 50 mcg/actuation nasal spray Use 1 [place] in each nostril daily at bedtime. montelukast (SINGULAIR) 10 mg tablet Take 1 tablet by mouth daily at bedtime. amino acids (BCAA ORAL) Take by mouth once daily. cetirizine (ZYRTEC) 10 mg tablet Take 10 mg by mouth once daily. ALLERGIES Allergen Reactions Bee Sting Swelling Local swelling and shortness of breath Dermabond [2-Octyl * Rash CARDIOVASCULAR:No chest pain, leg swelling and palpitations PULMONARY:No cough,wheezing and shortness of breath Objective PHYSICAL EXAM:The remainder of the physical exam is noncontributory AIRWAY: Mouth opening greater than 3 fingerbreadths: Yes Neck Full Range of Motion: Yes LUNGS: Good diaphragmatic excursion CARDIAC: Regular rhythm,Regular rate Assessment/Plan ASA Class: 2 Patient OK for Sedation: Yes Sedation Goal: Anesthesia Provisional Diagnosis/Treatment Plan: eosinophilic esophagitis, dysphagia/ EGD with dilation Sedation Goal: Anesthesia SIGNATURE: Tom Rudd MD PATIENT NAME: Carl Gross DATE: January 28, 2025 TIME: 2:08 PM 2023 [facility] Work Phone: 01-28-2025 History and physical note PROCEDURAL SEDATION HISTORY AND PHYSICAL EXAM SERVICE DATE: 01/28/2025 SERVICE TIME: 1408 Subjective HPI: This is a 39 year old male who presents with eosinophilic esophagitis, dysphagia PAST ANESTHESIA HISTORY:No history of adverse event PAST MEDICAL HISTORY Diagnosis Date Acute right-sided back pain with sciatica Arthritis Asthma (HCC) Awareness under anesthesia Dysthymia 02/03/2022 Eosinophilic esophagitis THA (generalized anxiety disorder) Generalized anxiety disorder Obstructive sleep apnea Palpitations Seasonal allergies Well adult exam PAST SURGICAL HISTORY Procedure Laterality Date ABDOMINAL SURGERY HX APPENDECTOMY HX 2020 COLONOSCOPY 01/21/2021 EGD 10/22/2020 Active esophagitis with increased intraepithelial eosinophils,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 EGD 01/21/2021 PAST SURGICAL HISTORY OF 02/2012 left foot surgery PAST SURGICAL HISTORY OF 2009 repair tendon right hand PAST SURGICAL HISTORY OF 05/2018 Throat PAST SURGICAL HISTORY OF Right 12/05/2023 arthroscopic knee- meniscus repair SINUS SURGERY HX 2015 Prior to Admission medications as of 12/07/24 1403 Medication Sig Last Dose Taking traZODone (DESYREL) 100 mg tablet TAKE 1 TO 2 TABLETS BY MOUTH ONCE DAILY AT BEDTIME celecoxib (CELEBREX) 100 mg capsule Take 1 capsule by mouth two times a day. As needed for joint pain, take with food sertraline (ZOLOFT) 100 mg tablet Take 1 tablet by mouth once daily. furosemide (LASIX) 20 mg tablet Take 1 tablet by mouth once daily as needed (leg edema). As needed for leg edema allopurinol (ZYLOPRIM) 100 mg tablet Take 1 tablet by mouth once daily. For gout. dupilumab (DUPIXENT PEN) 300 mg/2 mL pen injection Inject 300 mg subcutaneously one time a week. For eosinophilic esophagitis; ICD10 = K20.0 EPINEPHrine (EPIPEN) 0.3 mg/0.3 mL auto-injector Inject at onset of bee venom sting omeprazole (PRILOSEC) 40 mg capsule Take 1 capsule by mouth two times a day. Take 30 min before breakfast and dinner albuterol HFA (PROAIR HFA) 90 mcg/actuation inhaler Inhale 2 Puffs as instructed every 4 hours as needed. cyclobenzaprine (FLEXERIL) 10 mg tablet Take 1 tablet by mouth three times a day as needed for muscle spasm. fluticasone (FLONASE) 50 mcg/actuation nasal spray Use 1 [place] in each nostril daily at bedtime. montelukast (SINGULAIR) 10 mg tablet Take 1 tablet by mouth daily at bedtime. amino acids (BCAA ORAL) Take by mouth once daily. cetirizine (ZYRTEC) 10 mg tablet Take 10 mg by mouth once daily. ALLERGIES Allergen Reactions Bee Sting Swelling Local swelling and shortness of breath Dermabond [2-Octyl * Rash CARDIOVASCULAR:No chest pain, leg swelling and palpitations PULMONARY:No cough,wheezing and shortness of breath Objective PHYSICAL EXAM:The remainder of the physical exam is noncontributory AIRWAY: Mouth opening greater than 3 fingerbreadths: Yes Neck Full Range of Motion: Yes LUNGS: Good diaphragmatic excursion CARDIAC: Regular rhythm,Regular rate Assessment/Plan ASA Class: 2 Patient OK for Sedation: Yes Sedation Goal: Anesthesia Provisional Diagnosis/Treatment Plan: eosinophilic esophagitis, dysphagia/ EGD with dilation Sedation Goal: Anesthesia SIGNATURE: Tom Rudd MD PATIENT NAME: Carl Gross DATE: January 28, 2025 TIME: 2:08 PM 2023 documented in this encounter [facility] 01-28-2025 Nurse Note AMBULATORY PATIENT EDUCATION NOTE TOPIC: GI PROCEDURES: Esophagogastroduodenoscopy(EGD) with or without biopies based on clinical findings, removal of polyps or lesions READINESS TO LEARN INSTRUCTION PROVIDED TO: Patient and family member COGNITIVE ABILITY: Alert and oriented PTED MOTIVATION TO LEARN: Interested FAMILY SUPPORT: High - Very involved in pt care IPATIENT LEARNS BEST BY: Individual Instruction Written Instruction - Hand-outs Verbal Instruction FACTORS AFFECTING LEARNING: None PHYSICAL LIMITATIONS AFFECTING LEARNING: None LEARNING RESPONSE METHOD OF INSTRUCTION: Individual instruction PATIENT / FAMILY RESPONSE: Verbalizes understanding of: WORSENING CONDITION-Signs and symptoms of a worsening condition that warrant a call to the physician FOLLOW-UP PLAN: Patient instructed to call with any further issues SUPPLEMENTAL MATERIAL: Procedure Discharge Instructions REFERRAL (RECOMMENDATION): None Electronically Signed By: Carrillo Delgado RN [facility] 01-28-2025 Nurse Note AMBULATORY PATIENT EDUCATION NOTE TOPIC: GI PROCEDURES: Esophagogastroduodenoscopy(EGD) with or without biopies based on clinical findings, removal of polyps or lesions READINESS TO LEARN INSTRUCTION PROVIDED TO: Patient and family member COGNITIVE ABILITY: Alert and oriented PTED MOTIVATION TO LEARN: Interested FAMILY SUPPORT: High - Very involved in pt care IPATIENT LEARNS BEST BY: Individual Instruction Written Instruction - Hand-outs Verbal Instruction FACTORS AFFECTING LEARNING: None PHYSICAL LIMITATIONS AFFECTING LEARNING: None LEARNING RESPONSE METHOD OF INSTRUCTION: Individual instruction PATIENT / FAMILY RESPONSE: Verbalizes understanding of: WORSENING CONDITION-Signs and symptoms of a worsening condition that warrant a call to the physician FOLLOW-UP PLAN: Patient instructed to call with any further issues SUPPLEMENTAL MATERIAL: Procedure Discharge Instructions REFERRAL (RECOMMENDATION): None Electronically Signed By: Carrillo Delgado RN Dr Newby spoke to patient Carl and vivi Fontana prior to being discharged from unit PRE OP LEARNING ASSESSMENT PROCEDURE/SURGERY: GI PROCEDURES: EGD READINESS TO LEARN COGNITIVE ABILITY: Alert and oriented MOTIVATION TO LEARN: Eager Interested FAMILY SUPPORT: High - Very involved in pt care PATIENT LEARNS BEST BY: Individual Instruction Verbal Instruction FACTORS AFFECTING LEARNING: None PHYSICAL LIMITATIONS AFFECTING LEARNING: None Electronically Signed By: Yanet Buchanan RN In Department: GASTROENTEROLOGY documented in this encounter [facility] 01-28-2025 Note HNO ID: [id number] Author: CARRILLO DELGADO RN Service: Gastroenterology Author Type: Registered Nurse Type: Nursing Progress Note Filed: 01/28/2025 15:31 Note Text: Dr Newby spoke to patient Carl and vivi Fontana prior to being discharged from unit [facility] 01-28-[address] Newby spoke to patient Carl and vivi Fontana prior to being discharged from unit [facility] 01-28-2025 Note Q3 Patient Name: Carl Gross Procedure Date: 01/28/2025 2:02 PM Date of : 1985 Admit Type: Outpatient Age: 39 Gender: Male Note Status: Finalized Attending MD: Kenisha Newby MD, [id number] Procedure: Upper GI endoscopy Indications: Dysphagia, Follow-up of eosinophilic esophagitis, For therapy of eosinophilic esophagitis Providers: Kenisha Newby MD Patient Profile: This is a 39 year old male. Refer to note in patient chart for documentation of history and physical. Referring Physician: Robi Hendrickson MD (Referring MD) Medicines: Monitored Anesthesia Care Complications: No immediate complications. Requesting Provider: Procedure: Pre-Anesthesia Assessment: - Prior to the procedure, a History and Physical was performed, and patient medications and allergies were reviewed. The patient's tolerance of previous anesthesia was also reviewed. The risks and benefits of the procedure and the sedation options and risks were discussed with the patient. All questions were answered, and informed consent was obtained. Prior Anticoagulants: The patient has taken no anticoagulant or antiplatelet agents. ASA Grade Assessment: II - A patient with mild systemic disease. After reviewing the risks and benefits, the patient was deemed in satisfactory condition to undergo the procedure. After obtaining informed consent, the endoscope was passed under direct vision. Throughout the procedure, the patient's blood pressure, pulse, and oxygen saturations were monitored continuously. The Endoscope was introduced through the mouth, and advanced to the second part of duodenum. The upper GI endoscopy was accomplished without difficulty. The patient tolerated the procedure well. Moderate Sedation: MAC anesthesia was administered by the anesthesia team. Findings: LA Grade A (one or more mucosal breaks less than 5 mm, not extending between tops of 2 mucosal folds) esophagitis with no bleeding was found 39 to 40 cm from the incisors. A guidewire was placed and the scope was withdrawn. Dilation was performed with a Savary dilator with mild resistance at 15 mm. There was moderrate resistnace with 16 and 18 mm. A 2 cm hiatal hernia was present. The entire examined stomach was normal. The first portion of the duodenum and second portion of the duodenum were normal. Dilation was performed with a Savary dilator with mild resistance at 15 mm, and moderate resistnace 16 mm and 18 mm. The dilation site was examined following endoscope reinsertion and showed complete resolution of luminal narrowing. Impression: - LA Grade A reflux esophagitis with no bleeding. Dilated. - 2 cm hiatal hernia. - Normal stomach. - Normal first portion of the duodenum and second portion of the duodenum. - No specimens collected. Estimated Blood Loss: Estimated blood loss was minimal. Recommendation: - Discharge patient to home (ambulatory). - Resume previous diet PRN. - Patient has a contact number available for emergencies. The signs and symptoms of potential delayed complications were discussed with the patient. Return to normal activities tomorrow. Written discharge instructions were provided to the patient. Procedure Code(s): --- Professional --- 52979, Esophagogastroduodenoscopy, flexible, transoral; with insertion of guide wire followed by passage of dilator(s) through esophagus over guide wire CPT copyright 2020 [employer]. All rights reserved. Attending Participation: I was present and participated during the entire procedure, including non-goel portions. Scope In: 2:54:49 PM Scope Out: 3:02:[address] Kenisha Newby MD, MPH Kenisha Newby MD 01/28/2025 3:12:52 PM This report has been signed electronically by Kenisha Newby MD Number of Addenda: 0 Note Initiated On: 01/28/2025 2:02 PM [facility] 01-28-2025 Nurse Note PRE OP LEARNING ASSESSMENT PROCEDURE/SURGERY: GI PROCEDURES: EGD READINESS TO LEARN COGNITIVE ABILITY: Alert and oriented MOTIVATION TO LEARN: Eager Interested FAMILY SUPPORT: High - Very involved in pt care PATIENT LEARNS BEST BY: Individual Instruction Verbal Instruction FACTORS AFFECTING LEARNING: None PHYSICAL LIMITATIONS AFFECTING LEARNING: None Electronically Signed By: Yanet Buchanan RN In Department: GASTROENTEROLOGY [facility] 01-28-2025 Note Q3 Patient Name: Carl Gross Procedure Date: 01/28/2025 2:02 PM Date of : 1985 Admit Type: Outpatient Age: 39 Gender: Male Note Status: Finalized Attending MD: Kenisha Newby MD, [id number] Procedure: Upper GI endoscopy Indications: Dysphagia, Follow-up of eosinophilic esophagitis, For therapy of eosinophilic esophagitis Providers: Kenisha Newby MD Patient Profile: This is a 39 year old male. Refer to note in patient chart for documentation of history and physical. Referring Physician: Robi Hendrickson MD (Referring MD) Medicines: Monitored Anesthesia Care Complications: No immediate complications. Requesting Provider: Procedure: Pre-Anesthesia Assessment: - Prior to the procedure, a History and Physical was performed, and patient medications and allergies were reviewed. The patient's tolerance of previous anesthesia was also reviewed. The risks and benefits of the procedure and the sedation options and risks were discussed with the patient. All questions were answered, and informed consent was obtained. Prior Anticoagulants: The patient has taken no anticoagulant or antiplatelet agents. ASA Grade Assessment: II - A patient with mild systemic disease. After reviewing the risks and benefits, the patient was deemed in satisfactory condition to undergo the procedure. After obtaining informed consent, the endoscope was passed under direct vision. Throughout the procedure, the patient's blood pressure, pulse, and oxygen saturations were monitored continuously. The Endoscope was introduced through the mouth, and advanced to the second part of duodenum. The upper GI endoscopy was accomplished without difficulty. The patient tolerated the procedure well. Moderate Sedation: MAC anesthesia was administered by the anesthesia team. Findings: LA Grade A (one or more mucosal breaks less than 5 mm, not extending between tops of 2 mucosal folds) esophagitis with no bleeding was found 39 to 40 cm from the incisors. A guidewire was placed and the scope was withdrawn. Dilation was performed with a Savary dilator with mild resistance at 15 mm. There was moderrate resistnace with 16 and 18 mm. A 2 cm hiatal hernia was present. The entire examined stomach was normal. The first portion of the duodenum and second portion of the duodenum were normal. Dilation was performed with a Savary dilator with mild resistance at 15 mm, and moderate resistnace 16 mm and 18 mm. The dilation site was examined following endoscope reinsertion and showed complete resolution of luminal narrowing. Impression: - LA Grade A reflux esophagitis with no bleeding. Dilated. - 2 cm hiatal hernia. - Normal stomach. - Normal first portion of the duodenum and second portion of the duodenum. - No specimens collected. Estimated Blood Loss: Estimated blood loss was minimal. Recommendation: - Discharge patient to home (ambulatory). - Resume previous diet PRN. - Patient has a contact number available for emergencies. The signs and symptoms of potential delayed complications were discussed with the patient. Return to normal activities tomorrow. Written discharge instructions were provided to the patient. Procedure Code(s): --- Professional --- 17004, Esophagogastroduodenoscopy, flexible, transoral; with insertion of guide wire followed by passage of dilator(s) through esophagus over guide wire CPT copyright 2020 [employer]. All rights reserved. Attending Participation: I was present and participated during the entire procedure, including non-goel portions. Scope In: 2:54:49 PM Scope Out: 3:02:[address] Kenisha Newby MD, MPH Kenisha Newby MD 01/28/2025 3:12:52 PM This report has been signed electronically by Kenisha Newby MD Number of Addenda: 0 Note Initiated On: 01/28/2025 2:02 PM [facility] 01-22-2025 Telephone encounter Note Prescription Refill Information The patient has been identified by name and date of : Yes Caregiver verified no other encounters exist for this prescription request: Yes Caregiver confirmed with patient/requestor that no other refills are due, in the near future, with this provider at this time: Yes The last office visit in the department: 01/07/2025 Does the patient have a future office visit with this provider/department: Yes Requested Prescriptions Pending Prescriptions Disp Refills traZODone (DESYREL) 100 mg tablet [Pharmacy Med Name: traZODone HCl 100 MG Oral Tablet] 90 tablet 0 Sig: TAKE 1 TO 2 TABLETS BY MOUTH ONCE DAILY AT BEDTIME Maria De Jesus Chang MA January 22, 2025 10:05 AM [facility] 01-22-2025 Miscellaneous Notes Prescription Refill Information The patient has been identified by name and date of : Yes Caregiver verified no other encounters exist for this prescription request: Yes Caregiver confirmed with patient/requestor that no other refills are due, in the near future, with this provider at this time: Yes The last office visit in the department: 01/07/2025 Does the patient have a future office visit with this provider/department: Yes Requested Prescriptions Pending Prescriptions Disp Refills traZODone (DESYREL) 100 mg tablet [Pharmacy Med Name: traZODone HCl 100 MG Oral Tablet] 90 tablet 0 Sig: TAKE 1 TO 2 TABLETS BY MOUTH ONCE DAILY AT BEDTIME Maria De Jesus Chang MA January 22, 2025 10:05 AM documented in this encounter [facility] 01-08-2025 Telephone encounter Note Turned into TE Magnolia Arreguin MA [facility] 01-08-2025 Miscellaneous Notes Turned into TE Magnolia Arreguin MA documented in this encounter [facility] 01-07-2025 Note HNO ID: [id number] Author: SIMBA HORTON, DO Service: ? Author Type: Physician Type: Progress Notes Filed: 01/10/2025 12:54 Note Text: CC: Carl Gross is a 39 year old male who presents to the office for follow up HPI: Previously at OFFICE VISIT 07/25/2024 as below Previously he was struggling with falling asleep and staying asleep. Thinks it may be pain related - has been struggling to sleep since he had his first knee surgery in November. Has been trying over the counter medication- melatonin and magnesium and benadryl. He was started on trazodone and has been taking this intermittently with benefit Willing to have fasting labs drawn THA, stable, taking sertraline and prn alprazolam. Does admit to increased depression symptoms though- he was recently let go from his job and trying to find another job. He is home more so eating a poor diet now at times Right knee recent surgery with meniscectomy and cartilage repair. He is walking better with less limping, using crutches and having some post operative expected pain. No fevers or chills. No falls. 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 Will be likely having left foot surgery to fuse 1st MTP by Dr. Kimbrough [employer] in [place] Intermittent bloating, + stools are falling apart and loose, the stools are greasy and floating, hx of eosinophilic esophagitis. Currently He had a few episodes of blood in stool. He had recent diagnostic colonoscopy by Dr. Hendrickson on 11/19 which showed Non-bleeding internal hemorrhoids were found during retroflexion. The hemorrhoids were Grade II (internal hemorrhoids that prolapse but reduce spontaneously). Eosinophilic esophagitis, he is trying to eat a good diet. He is supposed to have additional upcoming EGD and manometry testing with Dr. Hendrickson- he is wondering if he can do this in [place] instead due to how far away this is. Intermittent knee pain, following up with ORthopedics, improved with intermittent use of prednisone. Asking for other option Occasional leg edema, mostly when legs are down Mood, doing well overall. Taking sertraline. Enjoying his new job better PAST MEDICAL HISTORY Diagnosis Date Acute right-sided back pain with sciatica Arthritis Asthma (HCC) Awareness under anesthesia Dysthymia 02/03/2022 Eosinophilic esophagitis THA (generalized anxiety disorder) Generalized anxiety disorder Obstructive sleep apnea Palpitations Seasonal allergies Well adult exam PAST SURGICAL HISTORY Procedure Laterality Date ABDOMINAL SURGERY HX APPENDECTOMY HX 2020 COLONOSCOPY 01/21/2021 EGD 10/22/2020 Active esophagitis with increased intraepithelial eosinophils,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 EGD 01/21/2021 PAST SURGICAL HISTORY OF 02/2012 left foot surgery PAST SURGICAL HISTORY OF 2009 repair tendon right hand PAST SURGICAL HISTORY OF 05/2018 Throat PAST SURGICAL HISTORY OF Right 12/05/2023 arthroscopic knee- meniscus repair SINUS SURGERY HX 2015 Current Outpatient Medications Medication Sig sertraline (ZOLOFT) 100 mg tablet Take 1 tablet by mouth once daily. meloxicam (MOBIC) 15 mg tablet Take 1 tablet by mouth once daily. As needed for knee pain and swelling predniSONE (DELTASONE) 10 mg tablet Take 4 tabs daily for 3 days, then 2 tabs daily for 3 days, then 1 tab daily for 3 days with food. furosemide (LASIX) 20 mg tablet Take 1 tablet by mouth once daily as needed (leg edema). As needed for leg edema traZODone (DESYREL) 100 mg tablet Take 1-2 tablets by mouth daily at bedtime. allopurinol (ZYLOPRIM) 100 mg tablet Take 1 tablet by mouth once daily. For gout. dupilumab (DUPIXENT PEN) 300 mg/2 mL pen injection Inject 300 mg subcutaneously one time a week. For eosinophilic esophagitis; ICD10 = K20.0 EPINEPHrine (EPIPEN) 0.3 mg/0.3 mL auto-injector Inject at onset of bee venom sting omeprazole (PRILOSEC) 40 mg capsule Take 1 capsule by mouth two times a day. Take 30 min before breakfast and dinner albuterol HFA (PROAIR HFA) 90 mcg/actuation inhaler Inhale 2 Puffs as instructed every 4 hours as needed. cyclobenzaprine (FLEXERIL) 10 mg tablet Take 1 tablet by mouth three times a day as needed for muscle spasm. fluticasone (FLONASE) 50 mcg/actuation nasal spray Use 1 [place] in each nostril daily at bedtime. montelukast (SINGULAIR) 10 mg tablet Take 1 tablet by mouth daily at bedtime. amino acids (BCAA ORAL) Take by mouth once daily. cetirizine (ZYRTEC) 10 mg tablet Take 10 mg by mouth once daily. No current facility-administered medications for this visit. ALLERGIES Allergen Reactions Bee Sting Swelling Local swelling and shortness of breath Dermabond [2-Octyl * Rash Social History Tobacco Use Smoking (more content not included)... [facility] 01-07-2025 History of Presen t illness Narrative CC: Carl Gross is a 39 year old male who presents to the office for follow up HPI: Previously at OFFICE VISIT 07/25/2024 as below Previously he was struggling with falling asleep and staying asleep. Thinks it may be pain related - has been struggling to sleep since he had his first knee surgery in November. Has been trying over the counter medication- melatonin and magnesium and benadryl. He was started on trazodone and has been taking this intermittently with benefit Willing to have fasting labs drawn THA, stable, taking sertraline and prn alprazolam. Does admit to increased depression symptoms though- he was recently let go from his job and trying to find another job. He is home more so eating a poor diet now at times Right knee recent surgery with meniscectomy and cartilage repair. He is walking better with less limping, using crutches and having some post operative expected pain. No fevers or chills. No falls. 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 Will be likely having left foot surgery to fuse 1st MTP [address] Dr. Kimbrough [employer] in [place] Intermittent bloating, + stools are falling apart and loose, the stools are greasy and floating, hx of eosinophilic esophagitis. Currently He had a few episodes of blood in stool. He had recent diagnostic colonoscopy by Dr. Hendrickson on 11/19 which showed Non-bleeding internal hemorrhoids were found during retroflexion. The hemorrhoids were Grade II (internal hemorrhoids that prolapse but reduce spontaneously). Eosinophilic esophagitis, he is trying to eat a good diet. He is supposed to have additional upcoming EGD and manometry testing with Dr. Hendrickson- he is wondering if he can do this in [place] instead due to how far away this is. Intermittent knee pain, following up with ORthopedics, improved with intermittent use of prednisone. Asking for other option Occasional leg edema, mostly when legs are down Mood, doing well overall. Taking sertraline. Enjoying his new job better PAST MEDICAL HISTORY Diagnosis Date Acute right-sided back pain with sciatica Arthritis Asthma (HCC) Awareness under anesthesia Dysthymia 02/03/2022 Eosinophilic esophagitis THA (generalized anxiety disorder) Generalized anxiety disorder Obstructive sleep apnea Palpitations Seasonal allergies Well adult exam PAST SURGICAL HISTORY Procedure Laterality Date ABDOMINAL SURGERY HX APPENDECTOMY HX 2020 COLONOSCOPY 01/21/2021 EGD 10/22/2020 Active esophagitis with increased intraepithelial eosinophils,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 EGD 01/21/2021 PAST SURGICAL HISTORY OF 02/2012 left foot surgery PAST SURGICAL HISTORY OF 2009 repair tendon right hand PAST SURGICAL HISTORY OF 05/2018 Throat PAST SURGICAL HISTORY OF Right 12/05/2023 arthroscopic knee- meniscus repair SINUS SURGERY HX 2016 Current Outpatient Medications Medication Sig sertraline (ZOLOFT) 100 mg tablet Take 1 tablet by mouth once daily. meloxicam (MOBIC) 15 mg tablet Take 1 tablet by mouth once daily. As needed for knee pain and swelling predniSONE (DELTASONE) 10 mg tablet Take 4 tabs daily for 3 days, then 2 tabs daily for 3 days, then 1 tab daily for 3 days with food. furosemide (LASIX) 20 mg tablet Take 1 tablet by mouth once daily as needed (leg edema). As needed for leg edema traZODone (DESYREL) 100 mg tablet Take 1-2 tablets by mouth daily at bedtime. allopurinol (ZYLOPRIM) 100 mg tablet Take 1 tablet by mouth once daily. For gout. dupilumab (DUPIXENT PEN) 300 mg/2 mL pen injection Inject 300 mg subcutaneously one time a week. For eosinophilic esophagitis; ICD10 = K20.0 EPINEPHrine (EPIPEN) 0.3 mg/0.3 mL auto-injector Inject at onset of bee venom sting omeprazole (PRILOSEC) 40 mg capsule Take 1 capsule by mouth two times a day. Take 30 min before breakfast and dinner albuterol HFA (PROAIR HFA) 90 mcg/actuation inhaler Inhale 2 Puffs as instructed every 4 hours as needed. cyclobenzaprine (FLEXERIL) 10 mg tablet Take 1 tablet by mouth three times a day as needed for muscle spasm. fluticasone (FLONASE) 50 mcg/actuation nasal spray Use 1 [place] in each nostril daily at bedtime. montelukast (SINGULAIR) 10 mg tablet Take 1 tablet by mouth daily at bedtime. amino acids (BCAA ORAL) Take by mouth once daily. cetirizine (ZYRTEC) 10 mg tablet Take 10 mg by mouth once daily. No current facility-administered medications for this visit. ALLERGIES Allergen Reactions Bee Sting Swelling Local swelling and shortness of breath Dermabond [2-Octyl * Rash Social History Tobacco Use Smoking status: Never Smokeless tobacco: Never Vaping Use Vaping status: Never Used Substance Use Topics Alcohol use: Yes Alcohol/week: 5.0 standard drinks of alcohol Types: 3 Standard drinks or equivalent, 2 Cans of Beer (12oz) per week Comment: occasional alcohol use Drug use: No ROS: See HPI PE: BP 130/80 Pulse 64 Temp (Src) 97.1 (Right Tympanic) Resp 20 Wt 255 lb (115.7kg) Gen: A&OX3, NAD, non-toxic appearing HEENT: PERRLA, EOMs intact b/l, nares without drainage, pharynx without erythema, exudate, lesions, or drainage. Uvula midline. Neck: No LAD, no thyromegaly, no meningismus. CV: RRR, no murmur Lungs: CTA b/l, no wheezing Skin: No rashes, lesions, or wounds on exposed skin. Joint pain knees b/l Trace lower leg edema, no calf pain or redness Normal peripheral pulses ASSESSMENT/PLAN: 1. Arthralgia, unspecified joint - ICD9: 719.40, ICD10: M25.50 (primary diagnosis) rx for meloxicam to use as needed daily with food Rare use of prednisone for severe flare up in joint pains only Use of lasix for edema with travel mostly - prn use - MELOXICAM 15 MG TABLET - PREDNISONE 10 MG TABLET 2. Situational anxiety - ICD9: 300.09, ICD10: F41.8 rx refilled Chronic, stable, no concerns - SERTRALINE 100 MG TABLET 3. THA (generalized anxiety disorder) - ICD9: 300.02, ICD10: F41.1 rx refilled Chronic, stable, no concerns - SERTRALINE 100 MG TABLET 4. Situational depression - ICD9: 309.0, ICD10: F43.21 rx refilled Chronic, stable, no concerns - SERTRALINE 100 MG TABLET 5. Bilateral leg edema - ICD9: 782.3, ICD10: R60.0 rx for meloxicam to use as needed daily with food Rare use of prednisone for severe flare up in joint pains only Use of lasix for edema with travel mostly - prn use - FUROSEMIDE 20 MG TABLET 6. Eosinophilic esophagitis - ICD9: 530.13, ICD10: K20.0 F/u with specialist for EGD/manometry testing 7. Internal hemorrhoids - ICD9: 455.0, ICD10: K64.8 See above, stable, recently diagnosed on colonoscopy Simba Horton, DO Return if no improvement. Follow up with Simba Horton DO. To ER if develops chest pain, shortness of breath. Discussed risks, benefits, alternatives, and potential side effects of medications. Patient/Guardian expressed understanding and agreed with the plan. See patient instructions. Simba Horton DO [address] [place] [address] documented in this encounter [facility] 12-14-2024 Telephone encounter Note Pt informed via [employer] message Magnolia Arreguin MA [facility] 12-14-2024 Miscellaneous Notes Pt informed via message Magnolia Arreguin MA Overall his labs look good. Slightly elevated WBC count but this was likely d/t the fact that he was sick/had an infection when this was drawn. We can redraw again in a month. No concerns. Tuan Puentes APRN.KVNG Images from the original note were not included. Pt sends [employer] message regarding his recent labs. Sebas Lawrence reviewed these results but would like provider to review. Carl Gross [facility] My Chart Rx Pool I m a little concerned about some of my recent lab results. What do you think, nothing to worry about? I didn t have any of these issues with my past 2 knee surgeries so I am concerned as to why I m having issues this time?? Thanks Froilan Gross documented in this encounter [facility] 12-14-2024 Telephone encounter Note Overall his labs look good. Slightly elevated WBC count but this was likely d/t the fact that he was sick/had an infection when this was drawn. We can redraw again in a month. No concerns. Tuan Puentes APRN.EMERY GRINDER [facility] 12-10-2024 Telephone encounter Note Images from the original note were not included. Pt sends [employer] message regarding his recent labs. Sebas Lawrence reviewed these results but would like provider to review. Carl Gross [facility] My Chart Rx Pool I m a little concerned about some of my recent lab results. What do you think, nothing to worry about? I didn t have any of these issues with my past 2 knee surgeries so I am concerned as to why I m having issues this time?? Thanks Froilan Gross [facility] 12-10-2024 Telephone encounter Note See TE December 10, 2024 [facility] 12-10-2024 Miscellaneous Notes See TE December 10, 2024 documented in this encounter [facility] 12-10-2024 Progress note Formatting of t his note might be different from the original. White cell count slightly increased due to recent infection. Continue on antibiotics for wound infection until gone. Thyroid testing was normal. Glucose was low, reported fasting at this visit. [facility] Work Phone: 12-10-2024 Miscellaneous Notes White cell count slightly increased due to recent infection. Continue on antibiotics for wound infection until gone. Thyroid testing was normal. Glucose was low, reported fasting at this visit. documented in this encounter [facility] 12-07-2024 Instructions Sebas Lawrence APRN.CNS - 12/07/2024 2:53 PM EDT - Continue taking your antibiotics as prescribed; you have about 2-3 days left. - Take your nausea medication around the clock as directed to help manage nausea and improve your appetite. - Drink plenty of fluids, aiming for at least 140 ounces of water daily. - If you have difficulty eating solid foods, try consuming protein shakes or smoothies to maintain your calorie intake. - Continue taking 2 Trazodone tablets at night as prescribed to help with sleep. - Hold off on taking any supplements or vitamins for a few days. - Monitor your surgical site for signs of infection, such as redness, warmth, or drainage. If you notice any of these symptoms, contact your surgeon immediately. documented in this encounter [facility] 12-07-2024 History of Presen t illness Narrative Subjective Patient ID: Carl is a 39 year old male who presents for Chills (Ongoing for a few weeks, no fevers, no other symptoms). HPI Chills: - Intermittent chills x3 weeks. - Difficulty maintaining body temperature, even when dressed warmly. - No recent illness prior to onset; last illness was in August. - No associated cough, congestion, or headache. - No known thyroid issues; family history of thyroid issues in mother and grandmother. - Last thyroid labs were normal. Lightheadedness: - Feeling spaced out x3 weeks. - No associated syncope or dizziness. Nausea: - Intermittent nausea x3 weeks. - Using leftover antiemetic medication from recent knee surgery. - Decreased appetite; has not eaten today due to nausea. - Drinking approximately 140 oz of water daily. - No emesis or diarrhea. Recent Knee Surgery: - Underwent arthroscopic knee surgery for meniscus trimming on November 16. - Developed a bacterial infection at the incision site 1.5 weeks ago; currently on antibiotics with 2-3 days remaining. - No imaging or further follow-up planned; last follow-up was last , and the incision was healing well. - states no longer taking pain medication; stopped 2.5 weeks ago. ROS Constitutional: (+) chills, (+) fatigue, (+) decreased appetite Head: (-) headache Ears/Nose/Mouth/Throat: (-) congestion Respiratory: (-) cough Gastrointestinal: (+) nausea, (-) vomiting, (-) diarrhea, (+) decreased appetite Neurological: (+) lightheaded Psychiatric: (+) sleep disturbance No urinary complaints Objective BP 136/74 Pulse 78 Resp 16 Wt 110.9 kg (244 lb 7.8 oz) BMI 32.26 kg/m Physical Exam Vitals and nursing note reviewed. Constitutional: Appearance: Normal appearance. HENT: Head: Normocephalic and atraumatic. Eyes: Conjunctiva/sclera: Conjunctivae normal. Cardiovascular: Rate and Rhythm: Normal rate and regular rhythm. Heart sounds: Normal heart sounds. Pulmonary: Effort: Pulmonary effort is normal. Breath sounds: Normal breath sounds. Abdominal: General: Bowel sounds are normal. Palpations: Abdomen is soft. Musculoskeletal: Comments: Some swelling in the left lateral aspect of knee near patella, well-healed otherwise no warmth erythema or induration Skin: General: Skin is warm and dry. Neurological: General: No focal deficit present. Mental Status: He is alert and oriented to person, place, and time. 1. Chills (without fever) (R68.83) - Experiencing chills for approximately three weeks, with difficulty maintaining body temperature. - No associated respiratory symptoms. - Recent surgical history and wound infection may contribute to current symptoms. - Advised adequate nutrition, hydration, and rest to support recovery. 2. Family history of thyroid disorder (Z83.49) - Family history of thyroid issues noted in mother and grandmother. - Previous thyroid function tests reportedly normal. - Ordered TSH and free T4 to evaluate current thyroid function. 3. S/P arthroscopic surgery of left knee (Z98.890) 4. Wound infection after surgery (T81.49XA) - Underwent arthroscopic meniscus surgery on November 16 at [facility]. - Developed a bacterial infection at the incision site approximately 1.5 weeks ago; currently on antibiotics with 2-3 days remaining. - Recent follow-up with surgeon reported good healing progress. - Advised to complete the antibiotic course and monitor for signs of infection such as redness, warmth, or drainage. 5. Nausea (R11.0) - Intermittent nausea affecting appetite; using leftover antiemetic medication as needed. - Recommended taking antiemetic medication around the clock to manage symptoms and maintain adequate nutrition. - Advised consuming protein shakes to supplement caloric intake during periods of reduced appetite. Symptoms started around the time of his arthroscopic surgery, notes decreased appetite and nausea since surgery. Was taking pain medication but states no longer is doing so. States still taking cephalexin for infection at the arthroscopic surgery site. Suspect his symptoms are related to surgery and recovery. Endorse supportive care, getting plenty of rest, fluids and routine meals. Reports takes a lot of supplements, however recommend holding these for few days to see if he feels improved. He will let us know if not continuing to feel improved or any concerns. Sebas Lawrence APRN.DARYL Medical Decision Making: Problems: Low: Acute, uncomplicated illness or injury Data: Unique test(s) ordered: 3+ Risk: Moderate: Drug management Medical Decision Making Level: 4 - Moderate documented in this encounter [facility] 12-07-2024 Note HNO ID: [id number] Author: SEBAS LAWRENCE APRN.[employer] Service: ? Author Type: Nurse Specialist Type: Progress Notes Filed: 12/07/2024 15:02 Note Text: Subjective Patient ID: Carl is a 39 year old male who presents for Chills (Ongoing for a few weeks, no fevers, no other symptoms). HPI Chills: - Intermittent chills x3 weeks. - Difficulty maintaining body temperature, even when dressed warmly. - No recent illness prior to onset; last illness was in August. - No associated cough, congestion, or headache. - No known thyroid issues; family history of thyroid issues in mother and grandmother. - Last thyroid labs were normal. Lightheadedness: - Feeling spaced out x3 weeks. - No associated syncope or dizziness. Nausea: - Intermittent nausea x3 weeks. - Using leftover antiemetic medication from recent knee surgery. - Decreased appetite; has not eaten today due to nausea. - Drinking approximately 140 oz of water daily. - No emesis or diarrhea. Recent Knee Surgery: - Underwent arthroscopic knee surgery for meniscus trimming on November 16. - Developed a bacterial infection at the incision site 1.5 weeks ago; currently on antibiotics with 2-3 days remaining. - No imaging or further follow-up planned; last follow-up was last , and the incision was healing well. - states no longer taking pain medication; stopped 2.5 weeks ago. ROS Constitutional: (+) chills, (+) fatigue, (+) decreased appetite Head: (-) headache Ears/Nose/Mouth/Throat: (-) congestion Respiratory: (-) cough Gastrointestinal: (+) nausea, (-) vomiting, (-) diarrhea, (+) decreased appetite Neurological: (+) lightheaded Psychiatric: (+) sleep disturbance No urinary complaints Objective BP 136/74 Pulse 78 Resp 16 Wt 110.9 kg (244 lb 7.8 oz) BMI 32.26 kg/m? Physical Exam Vitals and nursing note reviewed. Constitutional: Appearance: Normal appearance. HENT: Head: Normocephalic and atraumatic. Eyes: Conjunctiva/sclera: Conjunctivae normal. Cardiovascular: Rate and Rhythm: Normal rate and regular rhythm. Heart sounds: Normal heart sounds. Pulmonary: Effort: Pulmonary effort is normal. Breath sounds: Normal breath sounds. Abdominal: General: Bowel sounds are normal. Palpations: Abdomen is soft. Musculoskeletal: Comments: Some swelling in the left lateral aspect of knee near patella, well-healed otherwise no warmth erythema or induration Skin: General: Skin is warm and dry. Neurological: General: No focal deficit present. Mental Status: He is alert and oriented to person, place, and time. 1. Chills (without fever) (R68.83) - Experiencing chills for approximately three weeks, with difficulty maintaining body temperature. - No associated respiratory symptoms. - Recent surgical history and wound infection may contribute to current symptoms. - Advised adequate nutrition, hydration, and rest to support recovery. 2. Family history of thyroid disorder (Z83.49) - Family history of thyroid issues noted in mother and grandmother. - Previous thyroid function tests reportedly normal. - Ordered TSH and free T4 to evaluate current thyroid function. 3. S/P arthroscopic surgery of left knee (Z98.890) 4. Wound infection after surgery (T81.49XA) - Underwent arthroscopic meniscus surgery on November 16 at [facility]. - Developed a bacterial infection at the incision site approximately 1.5 weeks ago; currently on antibiotics with 2-3 days remaining. - Recent follow-up with surgeon reported good healing progress. - Advised to complete the antibiotic course and monitor for signs of infection such as redness, warmth, or drainage. 5. Nausea (R11.0) - Intermittent nausea affecting appetite; using leftover antiemetic medication as needed. - Recommended taking antiemetic medication around the clock to manage symptoms and maintain adequate nutrition. - Advised consuming protein shakes to supplement caloric intake during periods of reduced appetite. Symptoms started around the time of his arthroscopic surgery, notes decreased appetite and nausea since surgery. Was taking pain medication but states no longer is doing so. States still taking cephalexin for infection at the arthroscopic surgery site. Suspect his symptoms are related to surgery and recovery. Endorse supportive care, getting plenty of rest, fluids and routine meals. Reports takes a lot of supplements, however recommend holding these for few days to see if he feels improved. He will let us know if not continuing to feel improved or any concerns. Sebas Lawrence APRN.[employer] Medical Decision Making: Problems: Low: Acute, uncomplicated illness or injury Data: Unique test(s) ordered: 3+ Risk: Moderate: Drug management Medical Decision Making Level: 4 - Moderate [facility] 12-03-2024 Telephone encounter Note PDMP website checked and validated. All prescriptions have been APPROPRIATELY filled. No suspicious activity was identified. 12/03/2024 by Shelly Broderick APRN.CNP The following approved medication requests have been transmitted electronically. Requested Prescriptions Signed Prescriptions Disp Refills ALPRAZolam (XANAX) 0.25 mg tablet 30 tablet 0 Sig: Take 1 tablet by mouth as needed for up to 30 days. Authorizing Provider: SHELLY BRODERICK APRN.CNP [facility] 12-03-2024 Miscellaneous Notes PDMP website checked and validated. All prescriptions have been APPROPRIATELY filled. No suspicious activity was identified. 12/03/2024 by Shelly Broderick APRN.CNP The following approved medication requests have been transmitted electronically. Requested Prescriptions Signed Prescriptions Disp Refills ALPRAZolam (XANAX) 0.25 mg tablet 30 tablet 0 Sig: Take 1 tablet by mouth as needed for up to 30 days. Authorizing Provider: SHELLY BRODERICK APRN.CNP Prescription Refill Information The patient has been identified by name and date of : Yes Caregiver verified no other encounters exist for this prescription request: Yes Caregiver confirmed with patient/requestor that no other refills are due, in the near future, with this provider at this time: Yes The last office visit in the department: 11/05/2024 Does the patient have a future office visit with this provider/department: Yes Requested Prescriptions Pending Prescriptions Disp Refills ALPRAZolam (XANAX) 0.25 mg tablet [Pharmacy Med Name: ALPRAZOLAM 0.25MG TAB] 30 tablet 0 Sig: Take 1 tablet by mouth as needed for up to 30 days. Maria De Jesus Chang MA December 03, 2024 10:15 AM documented in this encounter [facility] 12-03-2024 Telephone encounter Note Prescription Refill Information The patient has been identified by name and date of : Yes Caregiver verified no other encounters exist for this prescription request: Yes Caregiver confirmed with patient/requestor that no other refills are due, in the near future, with this provider at this time: Yes The last office visit in the department: 11/05/2024 Does the patient have a future office visit with this provider/department: Yes Requested Prescriptions Pending Prescriptions Disp Refills ALPRAZolam (XANAX) 0.25 mg tablet [Pharmacy Med Name: ALPRAZOLAM 0.25MG TAB] 30 tablet 0 Sig: Take 1 tablet by mouth as needed for up to 30 days. Maria De Jesus Chang MA December 03, 2024 10:15 AM [facility] 11-27-2024 Discharge summary [facility] 11-27-2024 Radiology Diagnostic study note [facility] Imaging Services [address] [place] [address] Knee 4 or More Views MR#: [id number] Acct: [id number] Name: CARL GROSS GENE Rep #: [id number] : 1985 M 39 From: Wm Smith DO PCP: Dr. Simba Horton DO Status: RE G ER Study:Knee 4 or More Views Date of Exam: 11/27/24 Exam# [id number] Ordering Dr: Shiv Garcia MD PROCEDURE: KNEE 4 OR MORE VIEWS 11/27/2024 REASON FOR EXAM: PAIN TECHNIQUE: 4 view(s) of the left knee COMPARISON: Radiograph of the left knee dated 09/16/2024 FINDINGS: Bones: No fracture. No suspicious bone lesion. Joints: Normal alignment. Mild degenerative changes. Effusion: No effusion. Soft tissues: Soft tissues are unremarkable. Other: RAD/Knee 4 or More Views IMPRESSION: NO EFFUSION ACUTE FRACTURE OR DISLOCATION. Reading Location: [facility] CC: Dr. Shiv Garcia MD; Dr. Simba Horton DO ~ Comparator Operator: Signed [facility] 11-27-2024 Discharge summary Note Date/Time November 27, 2024 5:54pm [facility] Medical Records Department [address] [place] [address] Emergency Department Summary 11/27/24 MR#: [id number] Acct: [id number] Name: CARL GROSS GENE Rep #:[id number] : 1985 39 From: Shiv Garcia MD PCP: Dr. Simba Horton DO Status:RE G ER Location: ED HPI History of Present Illness Chief Complaint: General Illness Narrative Narrative: 39-year-old male past medical history of previous knee problems states that he had surgery performed by Dr. Lopez at the [facility] on 16 November, approximately 10 days ago. He is now follow-up for the next 2 days. He states that Dr. Lopez had removed the meniscal cartilage in his left knee. He had the same surgery performed on his right knee about a year ago. He states that thereis a small area on the left knee where there is a stitch that might be infected. Last Tuesday approximately 6 days ago, he started feeling weak and lightheaded. He felt feverish as well. He developed petechiae on his bilaterallower extremities and on his trunk. He is concerned that he may have an infection in his knee. [facility] Medical History Tear of meniscus of left knee Gout Asthma Home Medications ?Medication ?Instructions ?Recorded ?Last Taken ?Type naproxen sodium 550 mg tablet 550 mg PO BID 07/11/24 U nknown History oxycodone 5 mg tablet 5 mg PO Q6H PRN pain 3 days #12 09/16/24 Unknown Rx tabs Allergy/AdvReac Type Severity Reaction Status Date / Time bee venom protein (honey bee) Allergy Anaphylaxis Verified 11/27/24 15:37 Cyanoacrylates Allergy Rash Verified 11/27/24 15:37 Family History no significant family his Surgical History H/O medial meniscus repair of right knee History of esophagogastroduodenoscopy (EGD) Surgical History no surgical history Social History household members: spouse current occupational status: employed Smoking Status: Never smoker alcohol intake: never ROS ROS ED ROS Narrative Review of systems positive for feeling feverish, lightheadedness/generalized weakness. Developed petechiae on bilateral lower extremities and on abdomen. Denies other bleeding diathesis or easy bruising. EXAM Physical Exam Narrative Exam Narrative: Afebrile. Vital signs noted. Nontoxic-appearing. Cardiovascular examination feels a regular rate and rhythm. Lungs are clear to auscultation bilaterally. Abdomen is soft, nontender, without guarding or rebound. Positive bowel sounds. Neurological examination is nonfocal and nonlateralizing. Inspection of the left knee does show a small area with minimal erythema. Positive flexion extension left knee, no pain with passive range of motion. Neurovascular intact distally. Skin examination does show nonblanching petechiae on the bilateral lower extremities diffusely and on the abdomen. Const Vital Signs: 11/27/24 15:36 11/27/24 15:40 11/27/24 15:48 Temperature 97.6 F L 97.6 F L Temperature Source Oral Oral Pulse Rate 105 H 94 Respiratory Rate 16 18 Respiratory Effort Normal Short of Breath Respiratory Pattern Normal Blood Pressure 161/94 H 152/101 H Blood Pressure Mean 116 118 Pulse Ox 100 99 Oxygen Delivery Method Room Air Room Air MDM MDM MDM Narrative Medical decision making narrative: Differential diagnosis includes but not limited to vasculitis versus low platelets. I have very low suspicion for septic arthritis of the left knee given his clinical examination as he has full active range of motion and no painwith passive range of motion and there is no erythema. He is afebrile here as well. I do not feel arthrocentesis is indicated. I will check a CBC and a CMP given his generalized lightheadedness and weakness as well as malaise. I reviewed his laboratory work and he has normal white count of 9.8, hemoglobin 15.1, hematocrit 43.7, platelet count 228. CMP is grossly unremarkable as well. X-ray of the left knee and 4 views obtained and interpreted by myself independently shows no evidence of an effusion or fracture. At this point in time, I have very low suspicion for septic arthritis status post surgery as he is able to ambulate to the bathroom without difficulty. I was able to discuss the patient with Dr. Lopez at the [facility], who states that he had called in an antibiotic for the patient on Tuesday, yesterday which it was confirmed that the patient is currently taking. It was thought that this was more of a stitch granuloma on his left lateral, distal knee. Dr. Lopez was able to confirm and agrees that arthrocentesis is not indicated withoutthe presence of fever or white count. It was thought that he could follow-up with him on , 2 days from now. This is already a scheduled postoperative appointment. Additionally, for his petechiae, he may have more ofa postviral petechiae and he will follow-up with his primary care provider in the next 3 to 5 days. Return instructions to the emergency department were reviewed. Disposition is discharged home in stable condition. History & Record Review Discussion w/independent historian: Patient Lab Data Attestation: I reviewed the patient's lab results. Labs: Laboratory Results - last 24 hr 11/27/24 16:22 WBC 9.8 RBC 5.12 Hgb 15.1 Hct 43.7 MCV 85.4 MCH 29.5 MCHC 34.6 RDW Std Deviation 36.1 RDW Coeff of Jerzy 11.7 Plt Count 228 MPV 9.7 Immature Gran % (Auto) 0.500 Neut % (Auto) 72.6 H Lymph % (Auto) 16.8 L [place] % (Auto) 7.6 Eos % (Auto) 1.9 Baso % (Auto) 0.6 Absolute Neuts (auto) 7.1 Absolute Lymphs (auto) 1.64 Nucleated RBC % 0 Sodium 138 Potassium 3.8 Chloride 103 Carbon Dioxide 22.5 Anion Gap 13 BUN 14 Creatinine 0.93 Estim Creat Clear Calc 137.75 Est GFR (MDRD) Non-Af 106 BUN/Creatinine Ratio 15.2 Glucose 86 Calcium 9.5 Total Bilirubin 0.60 AST 25 ALT 34 Alkaline Phosphatase 66 Total Protein 7.3 Albumin 4.7 Globulin 2.6 Albumin/Globulin Ratio 1.8 Radiography Diagnostic Testing: Clinical Impression(s) from Imaging Studies Knee X-Ray 11/27/24 17:05 IMPRESSION: NO EFFUSION ACUTE FRACTURE OR DISLOCATION. Reading Location[facility] Management Discussion w/another healthcare provider: [employer] (Dr. Lopez, orthopedics [facility]) Discharge Plan Triage Chief Complaint: General Illness ED Provider: Shiv Garcia Dx/Rx/DC Orders Clinical Impression: Petechiae, Status post arthroscopic surgery of left knee, Stitch granuloma Instructions: ED Post Op Wound Check, Pain, ED Petechiae Prescriptions: No Action oxycodone 5 mg tablet 5 mg PO Q6H PRN (Reason: pain) 3 Days Qty: 12 0RF naproxen sodium 550 mg tablet 550 mg PO BID Primary Care Provider: Simba Horton Referrals: Simba Horton, [Primary Care Provider] - 3-5 Days if not improving Activity Restrictions/Additional Instructions: Follow-up with Dr. Lopez on , 2 days from now as scheduled. Continue theantibiotics he prescribed for you on Tuesday. Return with fever, new or worsening symptoms. Print Language: Estonian Disposition Disposition: Home, Self Care What to do if you have Problems For any increased pain, shortness of breath, bleeding, nausea or vomiting, chestpain, or any unexpected problems, contact your Primary Care Provider. Call [employer] [facility] ([phone]) or report to the closest Emergency Room. Call 911 if necessary. 11/27/24 1754 <Electronically signed by Shiv Garcia MD> Cosigner Signature (if applicable): CC: Dr. Simba Horton, DO ~ Signed [facility] Work Phone: [phone] Hospital Discharge instructions Additional Instructions Follow-up with Dr. Lopez on , 2 days from now as scheduled. Continue the antibiotics he prescribed for you on Tuesday. Return with fever, new or worsening symptoms. [facility] Work Phone: [phone]) 615-807603-24-2025 Nurse Note* Wendy Mendoza RN - 11/19/2024 7:52 AM EDT POST OP LEARNING RESPONSE INSTRUCTION PROVIDED TO: Patient and Spouse METHOD OF INSTRUCTION: Written instruction/Handouts Verbal instruction PATIENT / FAMILY RESPONSE: Verbalizes understanding of: POST-PROCEDURE INSTRUCTIONS-Correct actionsto take to reduce post procedure complications FOLLOW-UP PLAN: Complete - No need for follow-up SUPPLEMENTAL MATERIAL: None REFERRAL (RECOMMENDATION): None Electronically Signed By: Wendy Mendoza RN In Department: [facility] ENDOSCOPY [facility]03-24-2025 Nurse Note* Wendy Mendoza RN - 11/19/2024 7:52 AM EDT POST OP LEARNING RESPONSE INSTRUCTION PROVIDED TO: Patient and Spouse METHOD OF INSTRUCTION: Written instruction/Handouts Verbal instruction PATIENT / FAMILY RESPONSE: Verbalizes understanding of: POST-PROCEDURE INSTRUCTIONS-Correct actionsto take to reduce post procedure complications FOLLOW-UP PLAN: Complete - No need for follow-up SUPPLEMENTAL MATERIAL: None REFERRAL (RECOMMENDATION): None Electronically Signed By: Wendy Mendoza RN In Department: [facility] ENDOSCOPY [facility] * Christi Wallace RN - 11/19/2024 7:24 AM EDT Patient had left knee arthroscopy 11/16/2024. Patient stated that orthopedic surgeon informed him that it is acceptable to have colonoscopy today. Dr Trevino and Vick Plata SILVERWARE BUFFING MACHINE OPERATOR informed. Okay to proceedas planned. * Christi Wallace RN - 11/19/2024 7:23 AM EDT PRE OP LEARNING ASSESSMENT PROCEDURE/SURGERY: GI PROCEDURES: Colonoscopy READINESS TO LEARN COGNITIVE ABILITY: Alert and oriented MOTIVATION TO LEARN: Interested FAMILY SUPPORT: Unable to assess - Family not present PATIENT LEARNS BEST BY: Individual Instruction Written Instruction - Hand-outs Verbal Instruction FACTORS AFFECTING LEARNING: None PHYSICAL LIMITATIONS AFFECTING LEARNING: None Electronically Signed By: Christi Wallace RN In Department: [facility] ENDOS[facility] History and physical note * Vi Trevino Jr., - 11/19/2024 7:30 AM EDT HISTORY AND PHYSICAL EXAMINATION SERVICE DATE: 11/19/2024 SERVICE TIME: 7:21 AM Chief Complaint: blood in stool HPI:This is a 39 year old male who presents with blood in stool. Denies abd pain, constipation and diarrhea. Negative family history. Last colonoscopy was 4 yrs ago. PAST MEDICAL HISTORY Diagnosis Date Acute right-sided back pain with sciatica Arthritis Asthma Awareness under anesthesia Dysthymia 02/03/2022 Eosinophilic esophagitis THA (generalized anxiety disorder) Generalized anxiety disorder Obstructive sleep apnea Palpitations Seasonal allergies Well adult exam PAST SURGICAL HISTORY Procedure Laterality Date ABDOMINAL SURGERY HX APPENDECTOMY HX 2020 COLONOSCOPY 01/21/2021 EGD 10/22/2020 Active esophagitis with increased intraepithelial eosinophils,Inflamed gastric cardiac type mucosa with reactive epithelial changes and focal pancreatic heterotopia, Active esophagitis with increasedintraepithelial eosinophils, small mass lesion was found at the gastroesophageal junction. EGD 01/21/2021 PAST SURGICAL HISTORY OF 02/2012 left foot surgery PAST SURGICAL HISTORY OF 2009 repair tendon right hand PAST SURGICAL HISTORY OF 05/2018 Throat PAST SURGICAL HISTORY OF Right 12/05/2023 arthroscopic knee- meniscus repair SINUS SURGERY HX 2015 FAMILY HISTORY Problem Relation Age of Onset Cancer Father thyroid? Cancer Mother thyroid Hypertension Maternal Grandfather Cancer Maternal Grandmother thyroid Hypertension Maternal Grandmother Anesthesia Problems No Family History Social History Tobacco Use Smoking status: Never Smokeless tobacco: Never Vaping Use Vaping status: Never Used Substance Use Topics Alcohol use: Yes Alcohol/week: 5.0 standard drinks of alcohol Types: 3 Standard drinks or equivalent, 2 Cans of Beer (12oz) per week Comment: occasional alcohol use Drug use: No (Not in a hospital admission) ALLERGIES Allergen Reactions Bee Sting Swelling Local swelling and shortness of breath Dermabond [2-Octyl * Rash COMPLETE REVIEW OF SYSTEMS: GENERAL: No weight loss, malaise or fevers RESPIRATORY: Negative for cough, hemoptysis, wheezing, COPD, dyspnea or shortness of breath CARDIOVASCULAR: Negative for chest pain, leg swelling, hypertension, CHF or palpitations GI: No nausea, vomiting, or diarrhea BP 145/91 Pulse 80 Temp (Src) 98.8 (Temporal) Resp 20 Ht 6' 1 (1.85m) Wt 248 lb (112.5kg) SpO2 98% BMI 32.73 kg/(m^2). O2 Therapy: Room Air PHYSICAL EXAM: Physical Exam Performed: GENERAL: Alert, no distress, cooperative LUNGS: Lungs clear to auscultation, Good diaphragmatic excursion CARDIAC: Normal S1 and S2; no rubs, murmurs, or gallops ABDOMEN: Abdomen soft, non-tender, BS normal, No masses or organomegaly EXTREMITIES: Extremities normal, no deformities, edema, clubbing or skin discoloration. Good capillary refill., No ulcers (K62.5) Rectal bleeding Plan: COLONOSCOPY DIAGNOSTIC, COLONOSCOPY DIAGNOSTIC SIGNATURE: Vi Trevino Jr., DO PATIENT NAME: Carl Gross DATE: November 19, 2024 TIME: 7:21 AM PAGER/CONTACT #: [facility]03-24-2025 History and physical note* Vi Trevino Jr., DO - 11/19/2024 7:30 AM EDT HISTORY AND PHYSICAL EXAMINATION SERVICE DATE: 11/19/2024 SERVICE TIME: 7:21 AM Chief Complaint: blood in stool HPI:This is a 39 year old male who presents with blood in stool. Denies abd pain, constipation and diarrhea. Negative family history. Last colonoscopy was 4 yrs ago. PAST MEDICAL HISTORY Diagnosis Date Acute right-sided back pain with sciatica Arthritis Asthma Awareness under anesthesia Dysthymia 02/03/2022 Eosinophilic esophagitis THA (generalized anxiety disorder) Generalized anxiety disorder Obstructive sleep apnea Palpitations Seasonal allergies Well adult exam PAST SURGICAL HISTORY Procedure Laterality Date ABDOMINAL SURGERY HX APPENDECTOMY HX 2020 COLONOSCOPY 01/21/2021 EGD 10/22/2020 Active esophagitis with increased intraepithelial eosinophils,Inflamed gastric cardiac type mucosa with reactive epithelial changes and focal pancreatic heterotopia, Active esophagitis with increasedintraepithelial eosinophils, small mass lesion was found at the gastroesophageal junction. EGD 01/21/2021 PAST SURGICAL HISTORY OF 02/2012 left foot surgery PAST SURGICAL HISTORY OF 2009 repair tendon right hand PAST SURGICAL HISTORY OF 05/2018 Throat PAST SURGICAL HISTORY OF Right 12/05/2023 arthroscopic knee- meniscus repair SINUS SURGERY HX 2015 FAMILY HISTORY Problem Relation Age of Onset Cancer Father thyroid? Cancer Mother thyroid Hypertension Maternal Grandfather Cancer Maternal Grandmother thyroid Hypertension Maternal Grandmother Anesthesia Problems No Family History Social History Tobacco Use Smoking status: Never Smokeless tobacco: Never Vaping Use Vaping status: Never Used Substance Use Topics Alcohol use: Yes Alcohol/week: 5.0 standard drinks of alcohol Types: 3 Standard drinks or equivalent, 2 Cans of Beer (12oz) per week Comment: occasional alcohol use Drug use: No (Not in a hospital admission) ALLERGIES Allergen Reactions Bee Sting Swelling Local swelling and shortness of breath Dermabond [2-Octyl * Rash COMPLETE REVIEW OF SYSTEMS: GENERAL: No weight loss, malaise or fevers RESPIRATORY: Negative for cough, hemoptysis, wheezing, COPD, dyspnea or shortness of breath CARDIOVASCULAR: Negative for chest pain, leg swelling, hypertension, CHF or palpitations GI: No nausea, vomiting, or diarrhea BP 145/91 Pulse 80 Temp (Src) 98.8 (Temporal) Resp 20 Ht 6' 1 (1.85m) Wt 248 lb (112.5kg) SpO2 98% BMI 32.73 kg/(m^2). O2 Therapy: Room Air PHYSICAL EXAM: Physical Exam Performed: GENERAL: Alert, no distress, cooperative LUNGS: Lungs clear to auscultation, Good diaphragmatic excursion CARDIAC: Normal S1 and S2; no rubs, murmurs, or gallops ABDOMEN: Abdomen soft, non-tender, BS normal, No masses or organomegaly EXTREMITIES: Extremities normal, no deformities, edema, clubbing or skin discoloration. Good capillary refill., No ulcers (K62.5) Rectal bleeding Plan: COLONOSCOPY DIAGNOSTIC, COLONOSCOPY DIAGNOSTIC SIGNATURE: Vi Trevino Jr., DO PATIENT NAME: Carl Gross DATE: November 19, 2024 TIME: 7:21 AM PAGER/CONTACT #: documented in this encounterReg[facility] Nurse Note* Christi Wallace RN - 11/19/2024 7:24 AM EDT Patient had left knee arthroscopy 11/16/2024. Patient stated that orthopedic surgeon informed him that it is acceptable to have colonoscopy today. Dr Trevino and Vick Plata SILVERWARE BUFFING MACHINE OPERATOR informed. Okay to proceedas planned. [facility]03-24-2025 Nurse Note* Christi Wallace RN - 11/19/2024 7:23 AM EDT PRE OP LEARNING ASSESSMENT PROCEDURE/SURGERY: GI PROCEDURES: Colonoscopy READINESS TO LEARN COGNITIVE ABILITY: Alert and oriented MOTIVATION TO LEARN: Interested FAMILY SUPPORT: Unable to assess - Family not present PATIENT LEARNS BEST BY: Individual Instruction Written Instruction - Hand-outs Verbal Instruction FACTORS AFFECTING LEARNING: None PHYSICAL LIMITATIONS AFFECTING LEARNING: None Electronically Signed By: Christi Wallace RN In Department: [facility] [place] [facility]03-11-[facility]25 Instructions* Patient Instructions* Robi Hendrickson MD - 11/06/2024 10:11 AM EDT COLONOSCOPY BOWEL PREPARATION INSTRUCTIONS GOLYTELY/NULYTELY/TRILYTE/COLYTE Your doctor has scheduled you for a colonoscopy. To have a successful colonoscopy, you must have a clean colon, that is empty. A clean colon allows your doctor to see the entire colon & diagnose issues like polyps or cancer. For doctors, a clean colon is like driving on a rodrigue day; a dirty colon like driving in a storm. It is very important that you follow these instructions exactly, or your colonoscopy might not be as effective, could be canceled, and you may need to do the bowel prep and the colonoscopy again. TRANSPORTATION REQUIREMENTS You are receiving IV sedation. For your safety, a responsible adult escort must accompany you to and from your procedure: Your adult escort MUST be present with you at check-in for your colonoscopy. Your adult escort MUST remain in the endoscopy area until you are discharged. Your adult escort MUST transport you home once you are discharged. You are NOT allowed to operate any form of transportation (i.e. drive a car, bicycle, etc.) or leave the Endoscopy Center ALONE. It is not safe to do so. If you cannot meet these requirements, your procedure will be canceled. MEDICATION REQUIREMENTS For your safety, certain medications will need to be stopped or adjusted before you can have your procedure: BLOOD THINNERS: If you take blood thinners, such as Coumadin (warfarin), Plavix (clopidogrel), Ticlid (ticlopidine hydrochloride), Agrylin (anagrelide), Xarelto (Rivaroxaban), Pradaxa (Dabigatran), Eliquis (Apixaban), or Effient (Prasugrel), contact the physician who is prescribing these medications at least 2 weeks prior to your procedure to discuss any necessary adjustments. DIABETES: If you take medications for diabetes, your dosage may need to be adjusted. If you are being treated for diabetes with insulin, diabetic pills, or other injectable medicationsdo not take your REGULAR dose after midnight on the day of your procedure. If you are taking any other types of insulin such as Lantus, Humalog, NPH (long- acting insulin), or70/30 insulin, take half your normal dose the day before your procedure. DIABETES/WEIGHT MANAGEMENT: If you take medications for weight-loss, your dosage may need to be adjusted Contact the doctor who prescribes this medication for further instructions. If you take medications for weight-loss like semaglutide (Ozempic, Wegovy, Rybelsus), dulaglutide (Trulicity), liraglutide (Victoza, Saxenda), exenatide (Byetta, Bydureon), or lixisenatide (Adylyxin), stop your medication 1 week prior to your procedure. If you take medications like canagliflozin (Invokana), dapagliflozin (Farxiga, Forxiga), empagliflozin (Jardiance), stop your medication 3 days prior to your procedure. If you take ertugliflozin (Steglatro) stop your medication 4 days prior to your procedure. IRON: If you take iron pills, STOP them 1 week BEFORE your procedure, may resume after. OTHER MEDS: May take all other medications (including aspirin, antibiotics, water pills / diureticslike Lasix or Metolozone, blood pressure meds, etc.) at their usual scheduled time with a sip of water. DIET REQUIREMENTS The day before your colonoscopy, you may have a clear liquid diet (see below). The day of your colonoscopy, you may continue a clear liquid diet until 3 hours before your colonoscopy. Within 3 hours of your colonoscopy, take only any medications (as above) with a sip of water. Clear Liquid Diet Broth (chicken, beef or vegetable broth or bullion. Just the broth, no solids). Water Coffee or Tea (NO milk or creamer), but sugar and sugar substitutes are allowed. Clear liquids including clear, yellow, green, blue (NO red, NO orange, NO purple) Sodas / soft drinks Gatorade or other sports drinks Rodríguez-Aid or flavored drinks Plain Jell-O or other gelatins Fruit juice (strained; no-pulp) Popsicles or hard candy BOWEL PREPARATION (GOLYTELY/NULYTELY/TRILYTE/COLYTE) Split Dosing Bowel Prep: This means drinking your bowel prep in two doses. Split dosing helps cleanyour colon better and makes it less likely that your procedure will be canceled. Fill your prescription for Golytely/Nulytely/Trilyte/Colyte: The afternoon before your colonoscopy, mix the solution and refrigerate. You may add the flavor pack (if present) that came with the bowel preparation. Do not add ice, sugar, or other flavorings to the solution. You will drink your prep in two doses, by several hours. On the evening before your colonoscopy: 1. 6 PM drink the first half of the bowel preparation solution. Drink one 8-ounce glass every 15 minutes. 2. Six hours before your colonoscopy, drink the second half of the solution. Drink one 8-ounce glass every 15 minutes. 3. You may continue a clear liquid diet until 3 hours before your colonoscopy. Bowel prep can work differently from person to person. Some people's bowels move slowly and they may need different instructions. Please see your doctor in office or virtually for personalized bowel prep instructions if you have: Medical condition that needs special accommodations Had a poor bowel prep results or failed bowel prep attempts in the past. Had difficulty with anesthesia during the procedure. FREQUENTLY ASKED QUESTIONS Q: What if I suffer from constipation? A: Recommend taking extra laxatives to resolve your constipation days prior to entering the bowel prep day. Q: What if have had prior poor preps results in past? A: Contact your physician as you will likely need additional bowel prep instructions. Q: What if I have motility issues like Parkinson's, MS (multiple sclerosis), wheelchair dependent, etc.? or on medications that slow bowel emptying (narcotics, gabapentin, anticholinergic medicationsetc.) A: Contact your physician as you will likely need extra time and additional laxatives to complete your bowel prep. Q: What if I cannot drink large volume of liquid? A: Start your prep 2-3 hours earlier to allow yourself more time to complete the entire prep. Q: What if I can't finish my bowel prep? A: If you cannot finish your entire bowel prep, it is likely that your colonoscopy will need to be rescheduled due to poor prep quality. Q: What if I had bariatric surgery? Do I still have to complete the entire prep? A: Yes, gastric bypass surgery involves the stomach & small bowel. You may need to drink smaller amounts, slower (may need more time to complete your bowel prep). Gastric bypass does not alter the length of your colon so you will need to complete the entire bowel prep, it may just take longer time to complete it. Q: What if I am on dialysis? A: Please consult your content developer prior to scheduling to get instructions pertinent to you. In general, dialysis patients take the Golytely bowel prep and have the procedure same day of their dialysis (colonoscopy in AM, dialysis in PM). Q: How do I know if something is considered as clear liquid diet? A: If you can pour it in a glass and you can see through it, it is considered clear liquid Q: Can I eat nuts, seeds, beans, popcorn, dried fruits, vegetables & fruits that have skin peel? A: No, you will need to not eat these items starting 3 days prior to procedure. Q: Can I take Uber/Lyft/taxi/bus home? A: An adult MUST be present with you at check-in for your colonoscopy and remain in the endoscopy area until you are discharged. You can take Uber home only if this adult escort is with you at check in, remain in the endoscopy area until you are discharged, and takes the Uber with you to home. Q: Can I sleep it off here and drive myself home? A: No, you must have an adult with you at time of procedure check in, remain in the endoscopy center during your procedure, and drive you home. You cannot drive a vehicle after your procedure the rest of the day. documented in this encounterReg[facility]25 NoteHNO ID: [id number] Author: SHELLY BRODERICK APRN.KVNG Service: ? Author Type: Nurse Practitioner Type: Progress Notes Filed: 11/05/2024 16:14 Note Text: Chief Complaint Patient presents with: BLOOD STOOL LAST NIGHT AN TODAY BRIGHT RED HPI Carl Gross is a 39 year old male who presents here today for Above Complaints. Carl is an established patient of Dr. Clifford DO. Concerns today... Pt reports 2 episodes of bright red blood on stool and in toilet. One episode last night that was just dots of blood on stool and dripping in toilet and an episode at 7 am this morning of almost a quarter size blood clot from rectum. No episodes since. Pt is completely asymptomatic with this. No pain, dizziness, n/v/d/c, abd pain, or cramping. Has had external hemorrhoids before and reports there is nothing there, whatever this is is internal. Denies any dark, tarry stools or mucous in stool. No fever/chills. No other concerns or complications. Past medical history, appointments, medications, allergies reviewed. Previous Medical History PAST MEDICAL HISTORY Diagnosis Date Acute right-sided back pain with sciatica Arthritis Asthma Awareness under anesthesia Dysthymia 02/03/2022 Eosinophilic esophagitis THA (generalized anxiety disorder) Generalized anxiety disorder Obstructive sleep apnea Palpitations Seasonal allergies Well adult exam Previous Surgical History PAST SURGICAL HISTORY Procedure Laterality Date ABDOMINAL SURGERY HX APPENDECTOMY HX 2020 COLONOSCOPY 01/21/2021 EGD 10/22/2020 Active esophagitis with increased intraepithelial eosinophils,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 EGD 01/21/2021 PAST SURGICAL HISTORY OF 02/2012 left foot surgery PAST SURGICAL HISTORY OF 2009 repair tendon right hand PAST SURGICAL HISTORY OF 05/2018 Throat PAST SURGICAL HISTORY OF Right 12/05/2023 arthroscopic knee- meniscus repair SINUS SURGERY HX 2016 Family History FAMILY HISTORY Problem Relation Age of Onset Cancer Father thyroid? Cancer Mother thyroid Hypertension Maternal Grandfather Cancer Maternal Grandmother thyroid Hypertension Maternal Grandmother Anesthesia Problems No Family History Patient Allergies ALLERGIES Allergen Reactions Bee Sting Swelling Local swelling and shortness of breath Dermabond [2-Octyl * Rash Current Medications Current Outpatient Medications on File Prior to Visit Medication Sig traZODone (DESYREL) 100 mg tablet Take 1-2 tablets by mouth daily at bedtime. allopurinol (ZYLOPRIM) 100 mg tablet Take 1 tablet by mouth once daily. For gout. dupilumab (DUPIXENT PEN) 300 mg/2 mL pen injection Inject 300 mg subcutaneously one time a week. For eosinophilic esophagitis; ICD10 = K20.0 EPINEPHrine (EPIPEN) 0.3 mg/0.3 mL auto-injector Inject at onset of bee venom sting omeprazole (PRILOSEC) 40 mg capsule Take 1 capsule by mouth two times a day. Take 30 min before breakfast and dinner albuterol HFA (PROAIR HFA) 90 mcg/actuation inhaler Inhale 2 Puffs as instructed every 4 hours as needed. naproxen (NAPROSYN) 500 mg tablet Take 1 tablet by mouth three times a day with meals. Take with food. fluticasone (FLONASE) 50 mcg/actuation nasal spray Use 1 [place] in each nostril daily at bedtime. montelukast (SINGULAIR) 10 mg tablet Take 1 tablet by mouth daily at bedtime. amino acids (BCAA ORAL) Take by mouth once daily. cetirizine (ZYRTEC) 10 mg tablet Take 10 mg by mouth once daily. sertraline (ZOLOFT) 100 mg tablet Take 1 tablet by mouth once daily. Naproxen Sodium 550 mg tablet Take 550 mg by mouth two times a day with meals. aspirin, enteric coated (ASPIRIN, ENTERIC COATED) 81 mg EC tablet Take 81 mg by mouth once daily. (Patient not taking: Reported on 06/26/2024) cyclobenzaprine (FLEXERIL) 10 mg tablet Take 1 tablet by mouth three times a day as needed for muscle spasm. (Patient not taking: Reported on 06/26/2024) oxyCODONE-acetaminophen (PERCOCET) 5-325 mg tablet (Patient not taking: Reported on 11/05/2024) budesonide (PULMICORT) 0.5 mg/2 mL nebulizer solution For eosinophilic esophagitis. Mix 4 respules with 5 packs of Splenda and swallow daily. Do not eat or drink for 30 minutes after (Patient not taking: Reported on 12/02/2023) No current facility-administered medications on file prior to visit. Social History Social History Tobacco Use Smoking status: Never Smokeless tobacco: Never Vaping Use Vaping status: Never Used Substance Use Topics Alcohol use: Yes Alcohol/week: 5.0 standard drinks of alcohol Types: 3 Standard drinks or equivalent, 2 Cans of Beer (12oz) per week Comment: occasional alcohol use Drug use: No REVIEW OF SYSTEMS: as above Reviewed relevant PMHx, PSHx, Social Hx, (more content not included)...[facility]03-10-2025 History of Present illness Narrative* Shelly Broderick APRN.EMERY GRINDER - 11/05/2024 3:43 PM EDT Chief Complaint Patient presents with: BLOOD STOOL LAST NIGHT AN TODAY BRIGHT RED HPI Carl Gross is a 39 year old male who presents here today for Above Complaints. Carl is an established patient of Dr. Clifford DO. Concerns today... Pt reports 2 episodes of bright red blood on stool and in toilet. One episode last night that was just dots of blood on stool and dripping in toilet and an episode at 7 am this morning of almost a quarter size blood clot from rectum. No episodes since. Pt is completely asymptomatic with this. No pain, dizziness, n/v/d/c, abd pain, or cramping. Has had external hemorrhoids before and reports there is nothing there, whatever this is is internal. Denies any dark, tarry stools or mucous in stool. No fever/chills. No other concerns or complications. Past medical history, appointments, medications, allergies reviewed. Previous Medical History PAST MEDICAL HISTORY Diagnosis Date Acute right-sided back pain with sciatica Arthritis Asthma Awareness under anesthesia Dysthymia 02/03/2022 Eosinophilic esophagitis THA (generalized anxiety disorder) Generalized anxiety disorder Obstructive sleep apnea Palpitations Seasonal allergies Well adult exam Previous Surgical History PAST SURGICAL HISTORY Procedure Laterality Date ABDOMINAL SURGERY HX APPENDECTOMY HX 2020 COLONOSCOPY 01/21/2021 EGD 10/22/2020 Active esophagitis with increased intraepithelial eosinophils,Inflamed gastric cardiac type mucosa with reactive epithelial changes and focal pancreatic heterotopia, Active esophagitis with increasedintraepithelial eosinophils, small mass lesion was found at the gastroesophageal junction. EGD 01/21/2021 PAST SURGICAL HISTORY OF 02/2012 left foot surgery PAST SURGICAL HISTORY OF 2009 repair tendon right hand PAST SURGICAL HISTORY OF 05/2018 Throat PAST SURGICAL HISTORY OF Right 12/05/2023 arthroscopic knee- meniscus repair SINUS SURGERY HX 2015 Family History FAMILY HISTORY Problem Relation Age of Onset Cancer Father thyroid? Cancer Mother thyroid Hypertension Maternal Grandfather Cancer Maternal Grandmother thyroid Hypertension Maternal Grandmother Anesthesia Problems No Family History Patient Allergies ALLERGIES Allergen Reactions Bee Sting Swelling Local swelling and shortness of breath Dermabond [2-Octyl * Rash Current Medications Current Outpatient Medications on File Prior to Visit Medication Sig traZODone (DESYREL) 100 mg tablet Take 1-2 tablets by mouth daily at bedtime. allopurinol (ZYLOPRIM) 100 mg tablet Take 1 tablet by mouth once daily. For gout. dupilumab (DUPIXENT PEN) 300 mg/2 mL pen injection Inject 300 mg subcutaneously one time a week. For eosinophilic esophagitis; ICD10 = K20.0 EPINEPHrine (EPIPEN) 0.3 mg/0.3 mL auto-injector Inject at onset of bee venom sting omeprazole (PRILOSEC) 40 mg capsule Take 1 capsule by mouth two times a day. Take 30 min before breakfast and dinner albuterol HFA (PROAIR HFA) 90 mcg/actuation inhaler Inhale 2 Puffs as instructed every 4 hours as needed. naproxen (NAPROSYN) 500 mg tablet Take 1 tablet by mouth three times a day with meals. Take with food. fluticasone (FLONASE) 50 mcg/actuation nasal spray Use 1 [place] in each nostril daily at bedtime. montelukast (SINGULAIR) 10 mg tablet Take 1 tablet by mouth daily at bedtime. amino acids (BCAA ORAL) Take by mouth once daily. cetirizine (ZYRTEC) 10 mg tablet Take 10 mg by mouth once daily. sertraline (ZOLOFT) 100 mg tablet Take 1 tablet by mouth once daily. Naproxen Sodium 550 mg tablet Take 550 mg by mouth two times a day with meals. aspirin, enteric coated (ASPIRIN, ENTERIC COATED) 81 mg EC tablet Take 81 mg by mouth once daily. (Patient not taking: Reported on 06/26/2024) cyclobenzaprine (FLEXERIL) 10 mg tablet Take 1 tablet by mouth three times a day as needed for muscle spasm. (Patient not taking: Reported on 06/26/2024) oxyCODONE-acetaminophen (PERCOCET) 5-325 mg tablet (Patient not taking: Reported on 11/05/2024) budesonide (PULMICORT) 0.5 mg/2 mL nebulizer solution For eosinophilic esophagitis. Mix 4 respules with 5 packs of Splenda and swallow daily. Do not eat or drink for 30 minutes after (Patient not taking: Reported on 12/02/2023) No current facility-administered medications on file prior to visit. Social History Social History Tobacco Use Smoking status: Never Smokeless tobacco: Never Vaping Use Vaping status: Never Used Substance Use Topics Alcohol use: Yes Alcohol/week: 5.0 standard drinks of alcohol Types: 3 Standard drinks or equivalent, 2 Cans of Beer (12oz) per week Comment: occasional alcohol use Drug use: No REVIEW OF SYSTEMS: as above Reviewed relevant PMHx, PSHx, Social Hx, current medications and allergies. Review of Symptoms REVIEW OF SYSTEMS See HPI. EXAM: BP 140/80 Pulse 76 Resp 12 Wt 119.6 kg (263 lb 9.6 oz) SpO2 98% BMI 34.78 kg/m General Appearance: Well appearing, alert, in no acute distress, well-hydrated, well nourished.. Skin: Skin color, texture, turgor normal, no suspicious rashes or lesions. Head: Normocephalic, no masses, lesions, tenderness or abnormalities. Rectal: Deferred exam. Health Maintenance List Spirometry Never done HIV Screening Never done Hepatitis B Vaccine(1 of 3 - 19+ 3-dose series) due on 12/01/2024 Influenza Vaccine(1) due on 02/25/2025 Covid-19 Vaccine(1 - 2023- season) due on 07/25/2025 Annual PCP Team Chronic Disease Visit due on 07/25/2025 Lipid Screening due on 04/26/2028 DTaP,Tdap,Td Vaccine(2 - Td or Tdap) due on 09/17/2029 Colorectal Cancer Screening due on 01/21/2031 Hepatitis C Screening Completed ASSESSMENT/PLAN: 1. Blood in stool - ICD9: 578.1, ICD10: K92.1 (primary diagnosis) Fecal occult test. Likely internal hemorrhoid based on explanation. Try otc preparation H internally (either suppository or gel) Let me know if bleeding worsens at all. Described red flag symptoms to look out for and seek immediate medical attention for. If symptoms continue, will need to go to GI for colonoscopy/sigmoidoscopy. - OCCULT BLD EXAM-DIAG 2. Situational anxiety - ICD9: 300.09, ICD10: F41.8 Stable, refilled. - ALPRAZOLAM 0.25 MG TABLET PDMP website checked and validated. All prescriptions have been APPROPRIATELY filled. No suspiciousactivity was identified. 11/05/2024 by Shelly Broderick APRN.EMERY GRINDER RTO as needed. Prescription instructions reviewed with patient as applicable. Potential red flag symptoms discussed with the patient. Reviewed appropriate action plan to take if red flag symptoms occur. Patient agreeable to treatment plan. Shelly Dejesus APRN.CNP [id number] [place] [address] documented in this encounterReg[facility] Telephone encounter Note * Telephone Encounter - Ana Cristina Marroquin RN - 11/05/2024 9:26 AM EDT Triage Protocol Recommended: See provider today. Pt agreeable. 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 Reason for Disposition Rectal bleeding, bloody stools, or blood in stool (bowel movement) MODERATE rectal bleeding (e.g., small blood clots, passing blood without stool, or toilet water turns red) Answer Assessment - Initial Assessment Questions 1. APPEARANCE of BLOOD: yes, mixed with stool. Last episode this morning had quarter-sized bright red area of blood at end of stool 2. AMOUNT: (as above) 3. FREQUENCY: more than once 4. ONSET: 2 days ago 5. DIARRHEA: no 6. CONSTIPATION: no past constipation recently 7. RECURRENT SYMPTOMS: no 8. BLOOD THINNERS: no 9. OTHER SYMPTOMS:Denies abdomen pain, vomiting, dizziness, fever Protocols used: Stools - Unusual [id number], Rectal [id number] [facility]03-10-2025 Miscellaneous Notes* Telephone Encounter - Ana Cristina Marroquin RN - 11/05/2024 9:26 AM EDT Triage Protocol Recommended: See provider today. Pt agreeable. 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 Reason for Disposition Rectal bleeding, bloody stools, or blood in stool (bowel movement) MODERATE rectal bleeding (e.g., small blood clots, passing blood without stool, or toilet water turns red) Answer Assessment - Initial Assessment Questions 1. APPEARANCE of BLOOD: yes, mixed with stool. Last episode this morning had quarter-sized bright red area of blood at end of stool 2. AMOUNT: (as above) 3. FREQUENCY: more than once 4. ONSET: 2 days ago 5. DIARRHEA: no 6. CONSTIPATION: no past constipation recently 7. RECURRENT SYMPTOMS: no 8. BLOOD THINNERS: no 9. OTHER SYMPTOMS:Denies abdomen pain, vomiting, dizziness, fever Protocols used: Stools - Unusual [id number], Rectal [id number] documented in this encounterRegency [facility]03-[facility]-2025 Telephone encounter Note * Telephone Encounter - Lisseth Lopez LPN - 11/01/2024 10:11 AM EST Patient MyChart message requesting the following refill Refill(s) Requested: Requested Prescriptions Pending Prescriptions Disp Refills traZODone (DESYREL) 100 mg tablet 90 tablet 1 Sig: Take 1-2 tablets by mouth daily at bedtime. ALLERGIES Allergen Reactions Bee Sting Swelling Local swelling and shortness of breath Dermabond [2-Octyl * Rash (home) [phone] (cell) Last Office Visit Date: 07/25/2024 Last [facility] Health Visit: Visit date not found Future Appointment: 01/07/2025 The patients preferred pharmacy has been captured for this encounter? yes Request is for script(s) to be escript to pharmacy. Lisseth Lopez LPN [facility]03-06-2025 Miscellaneous Notes* Telephone Encounter - Lisseth Lopez LPN - 11/01/2024 10:11 AM EST Patient MyChart message requesting the following refill Refill(s) Requested: Requested Prescriptions Pending Prescriptions Disp Refills traZODone (DESYREL) 100 mg tablet 90 tablet 1 Sig: Take 1-2 tablets by mouth daily at bedtime. ALLERGIES Allergen Reactions Bee Sting Swelling Local swelling and shortness of breath Dermabond [2-Octyl * Rash (home) [phone] (cell) Last Office Visit Date: 07/25/2024 Last [facility] Health Visit: Visit date not found Future Appointment: 01/07/2025 The patients preferred pharmacy has been captured for this encounter? yes Request is for script(s) to be escript to pharmacy. Lisseth Lopez LPN documented in [facility] encounterReg[facility] Telephone encounter Note * Telephone Encounter - Dena Morelos LPN - 10/01/2024 11:37 AM EST Prescription Refill Information The patient has been identified by name and date of : Yes Caregiver verified no other encounters exist for this prescription request: Yes Caregiver confirmed with patient/requestor that no other refills are due, in the near future, with this provider at this time: Yes The last office visit in the department: 08/28/24 Does the patient have a future office visit with this provider/department: Yes Requested Prescriptions Pending Prescriptions Disp Refills allopurinol (ZYLOPRIM) 100 mg tablet 30 tablet 11 Sig: Take 1 tablet by mouth once daily. For gout. Dena Morelos LPN October 01, 2024 11:37 AM [facility]02-03-2025 Miscellaneous Notes* Telephone Encounter - Dena Morelos LPN - 10/01/2024 11:37 AM EST Prescription Refill Information The patient has been identified by name and date of : Yes Caregiver verified no other encounters exist for this prescription request: Yes Caregiver confirmed with patient/requestor that no other refills are due, in the near future, with this provider at this time: Yes The last office visit in the department: 08/28/24 Does the patient have a future office visit with this provider/department: Yes Requested Prescriptions Pending Prescriptions Disp Refills allopurinol (ZYLOPRIM) 100 mg tablet 30 tablet 11 Sig: Take 1 tablet by mouth once daily. For gout. Dena Morelos LPN October 01, 2024 11:37 AM documented in this encounterReg[facility]01-22-2025 Telephone encounter Note * Telephone Encounter - Shelly Broderick APRN.KVNG - 09/19/2024 12:32 PM EST Noted. Thank you, Shelly Broderick APRN.EMERY GRINDER [facility] Work Phone: [phone]) 302-184601-22-2025 Miscellaneous Notes* Telephone Encounter - Shelly Broderick APRN.EMERY GRINDER - 09/19/2024 12:32 PM EST Noted. Thank you, Shelly Broderick APRN.EMERY GRINDER * Telephone Encounter - Maria De Jesus Mcfarland - 09/18/2024 4:50 PM EST [facility] f/u for medication. Pt was advised insurance was OON. Ptstated he would have new insurance as of and wanted to wait till new insurance was in affect. Pt would call back after Sep 29 to update ins and schedule appt. documented in this encounterRegency [facility]01-21-2025 Telephone encounter Note * Telephone Encounter - Maria De Jesus Mcfarland - 09/18/2024 4:50 PM EST Pt [facility] to [facility] f/u for medication. Pt was advised insurance was OON. Ptstated he would have new insurance as of and wanted to wait till new insurance was in affect. Pt would call back after Sep 29 to update ins and schedule appt. [place] [address]-21-2025 Telephone encounter Note* Telephone Encounter - Pricilla Hatfield LPN - 09/18/2024 4:45 PM EST Spoke with pt and information listed below given. 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 ER FU scheduled and then he can discuss medications. Pricilla Hatfield LPN [facility]01-21-2025 Miscellaneous Notes* Telephone Encounter - Pricilla Hatfield LPN - 09/18/2024 4:45 PM EST Spoke with pt and information listed below given. 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 ER F[facility] scheduled and then he can discuss medications. Pricilla Hatfield LPN * Telephone Encounter - Magnolia Arreguin MA - 09/18/2024 2:43 PM EST Left message to return call Magnolia Arreguin MA * Telephone Encounter - Simba Horton DO - 09/18/2024 2:41 PM EST They won't let us refill narcotics from EMERGENCY DEPARTMENT unless patient has a virtual or officeappt Okay with KVNG Horton DO * Telephone Encounter - Clarissa Nevarez LPN - 09/18/2024 10:47 AM EST Mychart message: I went to the hospital early Tuesday morning for left knee pain. I had sprained my MCL Tuesday afternoon. They put me on five days of oxy and I was wondering if I would be able to get a renewal on that to get me by until I see my doctor. documented in this encounterReg[facility]01-21-2025 Telephone encounter Note * Telephone Encounter - Magnolia Arreguin MA - 09/18/2024 2:43 PM EST Left message to return call Magnolia Arreguin MA [facility]01-21-2025 Telephone encounter Note* Telephone Encounter - Simba Horton DO - 09/18/2024 2:41 PM EST They won't let us refill narcotics from EMERGENCY DEPARTMENT unless patient has a virtual or officeappt Okay with KVNG Horton DO [facility]01-21-2025 Telephone encounter Note* Telephone Encounter - Clarissa Nevarez LPN - 09/18/2024 10:47 AM EST Mychart message: I went to the hospital early Tuesday morning for left knee pain. I had sprained my MCL Tuesday afternoon. They put me on five days of oxy and I was wondering if I would be able to get a renewal on that to get me by until I see my doctor. [facility]01-21-2025 Telephone encounter Note* Telephone Encounter - Clarissa Nevarez LPN - 09/18/2024 10:47 AM EST Changed to a telephone encounter and forwarded on to pcp [facility]01-21-2025 Miscellaneous Notes* Telephone Encounter - Clarissa Nevarez LPN - 09/18/2024 10:47 AM EST Changed to a telephone encounter and forwarded on to pcp documented in this encounterRegency Hospital [facility]01-16-2025 Telephone encounter Note * Telephone Encounter - Robi Hendrickson MD - 09/13/2024 4:01 PM EST New script sent [facility]01-16-2025 Miscellaneous Notes* Telephone Encounter - Robi Hendrickson MD - 09/13/2024 4:01 PM EST New script sent * Telephone Encounter - Dena Miguel - 09/13/2024 3:50 PM EST Natalie @ [facility] called stating they need a NEW Dupixent script with Diagnosis (EoE) and Diagnosis Code indicated on script sent. Says there an invalid transfer via [facility]. So, requesting for Dr. Hendrickson to send to them directly. documented in this encounterRegency Hospital [facility]01-16-2025 Telephone encounter Note * Telephone Encounter - Dena Miguel - 09/13/2024 3:50 PM EST Natalie @ [facility] pharmacy called stating they need a NEW Dupixent script with Diagnosis (EoE) and Diagnosis Code indicated on script sent. Says there an invalid transfer via [facility]. So, requesting for Dr. Hendrickson to send to them directly. [facility] Work Phone: [phone] Telephone encounter Note* Telephone Encounter - Mady Betancur RN - 09/06/2024 12:09 PM EST Called pharmacy and clarified the order- no loading dose, pt will stay on the current dose that's ordered the entire time he's on the medication. [facility]01-09-2025 Miscellaneous Notes* Telephone Encounter - Mady Betancur RN - 09/06/2024 12:09 PM EST Called pharmacy and clarified the order- no loading dose, pt will stay on the current dose that's ordered the entire time he's on the medication. * Telephone Encounter - Santana Iglesias - 09/06/2024 10:52 AM EST [facility] called. The pharmacy wants to make sure the pt is taking the correct dosage? Pt usually will start with a loading dose and then move to a maintenance dosage as needed. [facility] P- [phone] F- [phone] documented in this encounterRegency Hospital [facility]01-09-2025 Telephone encounter Note * Telephone Encounter - Santana Iglesias - 09/06/2024 10:52 AM EST [facility] called. The pharmacy wants to make sure the pt is taking the correct dosage? Pt usually will start with a loading dose and then move to a maintenance dosage as needed. [facility] P- [phone] F- [phone] [facility]12-30-2024 Telephone encounter Note* Telephone Encounter - Simba Horton DO - 08/27/2024 11:48 AM EST The following approved medication requests have been transmitted electronically. Requested Prescriptions Signed Prescriptions Disp Refills amoxicillin-clavulanate potassium (AUGMENTIN) 875-125 mg per tablet 20 tablet 0 Sig: Take 1 tablet by mouth two times a day for 10 days. Authorizing Provider: SIMBA HORTON DO [facility]12-30-2024 Miscellaneous Notes* Telephone Encounter - Simba Horton DO - 08/27/2024 11:48 AM EST The following approved medication requests have been transmitted electronically. Requested Prescriptions Signed Prescriptions Disp Refills amoxicillin-clavulanate potassium (AUGMENTIN) 875-125 mg per tablet 20 tablet 0 Sig: Take 1 tablet by mouth two times a day for 10 days. Authorizing Provider: SIMBA HORTON DO documented in this encounterRegency Hospital [facility]12-27-2024 Telephone encounter Note * Telephone Encounter - Falguni Moralez - 08/24/2024 3:25 PM EST [employer] fax requesting Dupixent prior authorization, scanned in [employer] Separate fax received from [facility] to notify office the prior authorization has to be submitted via [employer] [place] [phone] Falguni Moralez [facility]12-27-2024 Miscellaneous Notes* Telephone Encounter - Falguni Moralez - 08/24/2024 3:25 PM EST [employer] fax requesting Dupixent prior authorization, scanned in [employer] Separate fax received from [facility] to notify office the prior authorization has to be submitted via [employer] [place] [phone] Falguni Moralez documented in this encounterRegency Hospital [facility]12-18-2024 Telephone encounter Note * Telephone Encounter - Christy Tee LPN - 08/15/2024 4:06 PM EST Patient returned call and went over results from Dr Horton with understanding. [facility]12-18-2024 Miscellaneous Notes* Telephone Encounter - Christy Tee LPN - 08/15/2024 4:06 PM EST Patient returned call and went over results from Dr Horton with understanding. * Telephone Encounter - Usha Rojas MA - 08/15/2024 3:59 PM EST Left message for patient to contact office. Usha Rojas MA * Telephone Encounter - Dena Morelos LPN - 08/13/2024 11:53 AM EST Left message to return call. * Telephone Encounter - Simba Horton DO - 08/13/2024 7:46 AM EST Please inform patient that all his stool studies are normal appearing Simba Horton DO documented in this encounterRegency Hospital [facility]12-18-2024 Telephone encounter Note * Telephone Encounter - Usha Rojas MA - 08/15/2024 3:59 PM EST Left message for patient to contact office. Usha Rojas MA [facility]12-16-2024 Telephone encounter Note* Telephone Encounter - Dena Morelos LPN - 08/13/2024 11:53 AM EST Left message to return call. [facility]12-16-2024 Telephone encounter Note* Telephone Encounter - Simba Horton DO - 08/13/2024 7:46 AM EST Please inform patient that all his stool studies are normal appearing Simba Horton DO [facility]11-27-2024 History of Present illness Narrative* Simba Horton DO - 07/25/2024 1:40 PM EST CC: Carl Gross is a 39 year old male who presents to the office for follow up HPI: Previously he was struggling with falling asleep and staying asleep. Thinks it may be pain related - has been struggling to sleep since he had his first knee surgery in November. Has been trying over the counter medication- melatonin and magnesium and benadryl. He was started on trazodone and has beentaking this intermittently with benefit Willing to have fasting labs drawn THA, stable, taking sertraline and prn alprazolam. Does admit to increased depression symptoms though- he was recently let go from his job and trying to find another job. He is home more so eating a poor diet now at times Right knee recent surgery with meniscectomy and cartilage repair. He is walking better with less limping, using crutches and having some post operative expected pain. No fevers or chills. No falls. 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 Will be likely having left foot surgery to fuse 1st MTP [address] Dr. Kimbrough [facility] in [place] Intermittent bloating, + stools are falling apart and loose, the stools are greasy and floating, hx of eosinophilic esophagitis. PAST MEDICAL HISTORY Diagnosis Date Acute right-sided back pain with sciatica Arthritis Asthma Awareness under anesthesia Dysthymia 02/03/2022 Eosinophilic esophagitis THA (generalized anxiety disorder) Generalized anxiety disorder Obstructive sleep apnea Palpitations Seasonal allergies Well adult exam PAST SURGICAL HISTORY Procedure Laterality Date ABDOMINAL SURGERY HX APPENDECTOMY HX 2020 COLONOSCOPY 01/21/2021 EGD 10/22/2020 Active esophagitis with increased intraepithelial eosinophils,Inflamed gastric cardiac type mucosa with reactive epithelial changes and focal pancreatic heterotopia, Active esophagitis with increasedintraepithelial eosinophils, small mass lesion was found at the gastroesophageal junction. EGD 01/21/2021 PAST SURGICAL HISTORY OF 02/2012 left foot surgery PAST SURGICAL HISTORY OF 2009 repair tendon right hand PAST SURGICAL HISTORY OF 05/2018 Throat PAST SURGICAL HISTORY OF Right 12/05/2023 arthroscopic knee- meniscus repair SINUS SURGERY HX 2016 Current Outpatient Medications Medication Sig traZODone (DESYREL) 100 mg tablet Take 1-2 tablets by mouth daily at bedtime. sertraline (ZOLOFT) 100 mg tablet Take 1 tablet by mouth once daily. ALPRAZolam (XANAX) 0.25 mg tablet Take 1 tablet by mouth three times a day as needed for up to 10 days. EPINEPHrine (EPIPEN) 0.3 mg/0.3 mL auto-injector Inject at onset of bee venom sting omeprazole (PRILOSEC) 40 mg capsule Take 1 capsule by mouth two times a day. Take 30 min before breakfast and dinner Naproxen Sodium 550 mg tablet Take 550 mg by mouth two times a day with meals. aspirin, enteric coated (ASPIRIN, ENTERIC COATED) 81 mg EC tablet Take 81 mg by mouth once daily. (Patient not taking: Reported on 06/26/2024) albuterol HFA (PROAIR HFA) 90 mcg/actuation inhaler Inhale 2 Puffs as instructed every 4 hours as needed. naproxen (NAPROSYN) 500 mg tablet Take 1 tablet by mouth three times a day with meals. Take with food. cyclobenzaprine (FLEXERIL) 10 mg tablet Take 1 tablet by mouth three times a day as needed for muscle spasm. (Patient not taking: Reported on 06/26/2024) dupilumab (DUPIXENT PEN) 300 mg/2 mL pen injection Inject 300 mg subcutaneously one time a week. oxyCODONE-acetaminophen (PERCOCET) 5-325 mg tablet allopurinol (ZYLOPRIM) 100 mg tablet Take 1 tablet by mouth once daily. For gout. budesonide (PULMICORT) 0.5 mg/2 mL nebulizer solution For eosinophilic esophagitis. Mix 4 respules with 5 packs of Splenda and swallow daily. Do not eat or drink for 30 minutes after (Patient not taking: Reported on 12/02/2023) fluticasone (FLONASE) 50 mcg/actuation nasal spray Use 1 [place] in each nostril daily at bedtime. montelukast (SINGULAIR) 10 mg tablet Take 1 tablet by mouth daily at bedtime. amino acids (BCAA ORAL) Take by mouth once daily. cetirizine (ZYRTEC) 10 mg tablet Take 10 mg by mouth once daily. No current facility-administered medications for this visit. ALLERGIES Allergen Reactions Bee Sting Swelling Local swelling and shortness of breath Dermabond [2-Octyl * Rash Social History Tobacco Use Smoking status: Never Smokeless tobacco: Never Vaping Use Vaping status: Never Used Substance Use Topics Alcohol use: Yes Alcohol/week: 5.0 standard drinks of alcohol Types: 3 Standard drinks or equivalent, 2 Cans of Beer (12oz) per week Comment: occasional alcohol use Drug use: No ROS: See HPI PE: BP 138/80 Pulse 88 Temp (Src) 97.7 (Left Tympanic) Resp 16 Wt 251 lb 5.2 oz (114.0kg) Gen: A&OX3, NAD, non-toxic appearing HEENT: PERRLA, EOMs intact b/l, nares without drainage, pharynx without erythema, exudate, lesions,or drainage. Uvula midline. Neck: No LAD, no thyromegaly, no meningismus. CV: RRR, no murmur Lungs: CTA b/l, no wheezing Skin: No rashes, lesions, or wounds on exposed skin. No edema legs ASSESSMENT/PLAN: 1. Loose stools - ICD9: 787.7, ICD10: R19.5 (primary diagnosis) Labs/stool studies as ordered F/u with [facility] if not improved. - ENTERIC BACTERIAL PANEL BY PCR - PANC ELASTASE, FECAL - HELICOBACTER PYLORI ANTIGEN BY EIA, STOOL 2. Situational insomnia - ICD9: 307.41, ICD10: F51.09 rx refilled, stable/improved. - TRAZODONE 100 MG TABLET 3. Situational anxiety - ICD9: 300.09, ICD10: F41.8 rx refilled, stable/improved. - SERTRALINE 100 MG TABLET - ALPRAZOLAM 0.25 MG TABLET 4. Eosinophilic esophagitis - ICD9: 530.13, ICD10: K20.0 Stable/improved, has had recent EGD 5. THA (generalized anxiety disorder) - ICD9: 300.02, ICD10: F41.1 See above rx refilled, stable/improved. - SERTRALINE 100 MG TABLET 6. Situational depression - ICD9: 309.0, ICD10: F43.21 Increase dose of zoloft, has had some depression worsening symptoms due to loss of his job - SERTRALINE 100 MG TABLET Simba Horton DO Return if no improvement. Follow up with Simba Horton DO. To ER if develops chest pain, shortness of breath. Discussed risks, benefits, alternatives, and potential side effects of medications. Patient/Guardian expressed understanding and agreed with the plan. See patient instructions. Simba Horton DO [address] [place] [address] documented in this encounterRegency Hospital [facility]11-27-2024 NoteHNO ID: [id number] Author: SIMBA HORTON DO Service: ? Author Type: Physician Type: Progress Notes Filed: 07/25/2024 14:29 Note Text: CC: Carl Gross is a 39 year old male who presents to the office for follow up HPI: Previously he was struggling with falling asleep and staying asleep. Thinks it may be pain related - has been struggling to sleep since he had his first knee surgery in November. Has been trying over the counter medication- melatonin and magnesium and benadryl. He was started on trazodone and has been taking this intermittently with benefit Willing to have fasting labs drawn THA, stable, taking sertraline and prn alprazolam. Does admit to increased depression symptoms though- he was recently let go from his job and trying to find another job. He is home more so eating a poor diet now at times Right knee recent surgery with meniscectomy and cartilage repair. He is walking better with less limping, using crutches and having some post operative expected pain. No fevers or chills. No falls. 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 Will be likely having left foot surgery to fuse 1st MTP [address] Dr[address] Kimbrough [facility] in [place] Intermittent bloating, + stools are falling apart and loose, the stools are greasy and floating, hx of eosinophilic esophagitis. PAST MEDICAL HISTORY Diagnosis Date Acute right-sided back pain with sciatica Arthritis Asthma Awareness under anesthesia Dysthymia 02/03/2022 Eosinophilic esophagitis THA (generalized anxiety disorder) Generalized anxiety disorder Obstructive sleep apnea Palpitations Seasonal allergies Well adult exam PAST SURGICAL HISTORY Procedure Laterality Date ABDOMINAL SURGERY HX APPENDECTOMY HX 2020 COLONOSCOPY 01/21/2021 EGD 10/22/2020 Active esophagitis with increased intraepithelial eosinophils,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 EGD 01/21/2021 PAST SURGICAL HISTORY OF 02/2012 left foot surgery PAST SURGICAL HISTORY OF 2009 repair tendon right hand PAST SURGICAL HISTORY OF 05/2018 Throat PAST SURGICAL HISTORY OF Right 12/05/2023 arthroscopic knee- meniscus repair SINUS SURGERY HX 2016 Current Outpatient Medications Medication Sig traZODone (DESYREL) 100 mg tablet Take 1-2 tablets by mouth daily at bedtime. sertraline (ZOLOFT) 100 mg tablet Take 1 tablet by mouth once daily. ALPRAZolam (XANAX) 0.25 mg tablet Take 1 tablet by mouth three times a day as needed for up to 10 days. EPINEPHrine (EPIPEN) 0.3 mg/0.3 mL auto-injector Inject at onset of bee venom sting omeprazole (PRILOSEC) 40 mg capsule Take 1 capsule by mouth two times a day. Take 30 min before breakfast and dinner Naproxen Sodium 550 mg tablet Take 550 mg by mouth two times a day with meals. aspirin, enteric coated (ASPIRIN, ENTERIC COATED) 81 mg EC tablet Take 81 mg by mouth once daily. (Patient not taking: Reported on 06/26/2024) albuterol HFA (PROAIR HFA) 90 mcg/actuation inhaler Inhale 2 Puffs as instructed every 4 hours as needed. naproxen (NAPROSYN) 500 mg tablet Take 1 tablet by mouth three times a day with meals. Take with food. cyclobenzaprine (FLEXERIL) 10 mg tablet Take 1 tablet by mouth three times a day as needed for muscle spasm. (Patient not taking: Reported on 06/26/2024) dupilumab (DUPIXENT PEN) 300 mg/2 mL pen injection Inject 300 mg subcutaneously one time a week. oxyCODONE-acetaminophen (PERCOCET) 5-325 mg tablet allopurinol (ZYLOPRIM) 100 mg tablet Take 1 tablet by mouth once daily. For gout. budesonide (PULMICORT) 0.5 mg/2 mL nebulizer solution For eosinophilic esophagitis. Mix 4 respules with 5 packs of Splenda and swallow daily. Do not eat or drink for 30 minutes after (Patient not taking: Reported on 12/02/2023) fluticasone (FLONASE) 50 mcg/actuation nasal spray Use 1 [place] in each nostril daily at bedtime. montelukast (SINGULAIR) 10 mg tablet Take 1 tablet by mouth daily at bedtime. amino acids (BCAA ORAL) Take by mouth once daily. cetirizine (ZYRTEC) 10 mg tablet Take 10 mg by mouth once daily. No current facility-administered medications for this visit. ALLERGIES Allergen Reactions Bee Sting Swelling Local swelling and shortness of breath Dermabond [2-Octyl * Rash Social History Tobacco Use Smoking status: Never Smokeless tobacco: Never Vaping Use Vaping status: Never Used Substance Use Topics Alcohol use: Yes Alcohol/week: 5.0 standard drinks of alcohol Types: 3 Standard drinks or equivalent, 2 Cans of Beer (12oz) per week Comment: occasional alcohol use Drug use: No ROS: See HPI PE: BP 138/80 Pulse 88 Temp (Src) 97.7 (Left Tympanic) Resp 16 Wt 251 lb 5.2 oz (114.0kg) Gen: AANDOX3, NAD, non-toxic appearing HEENT: PERRLA, (more content not included)...[facility] 07-06-2024 History of Present illness Narrative* Robi Hendrickson MD - 07/06/2024 3:30 PM EST Patient unable to attend visit documented in this encounterRegency Hospital [facility]11-08-2024 NoteHNO ID: [id number] Author: ROBI HENDRICKSON MD Service: ? Author Type: Physician Type: Progress Notes Filed: 07/06/2024 15:41 Note Text: Patient [facility] History of Present illness Narrative* Elena Wiseman RT(R) - 06/26/2024 10:20 AM EDT Radiology Service Progress Note PATIENT NAME: Carl Gross DATE OF SERVICE: June 26, 2024 TIME: 10:08 AM PATIENT IDENTITY VERIFICATION COMPLETED USING TWO (2) IDENTIFIERS: Name and Date of confirmedby patient verbally. FALL SCREENING: Has the patient had 2 falls in the last year or 1 fall with injury or currently using an Ambulatory Assistive Device (Walker, Cane, Wheelchair, Crutches, etc.)? No PATIENT GENDER DATA: Male PATIENT RELEVANT IMPLANT DATA REVIEWED: Not Applicable PATIENT PRESENTS WITH AN IMPLANTABLE OR ATTACHED HUMAN RESOURCES TALENT MANAGER: No RADIOLOGY DEPARTMENT: General X-ray: Exam(s) Completed: Chest X-Ray PERIPHERAL IV DATA: Not applicable SIGNED BY: RT Deion(R) June 26, 2024 10:08 AM documented [facility]24 NoteHNO ID: [id number] Author: ELENA WISEMAN RT(Herb) Service: Radiology Author Type: Technologist Type: Progress Notes Filed: 06/26/2024 10:13 Note Text: Radiology Service Progress Note PATIENT NAME: Carl Gross DATE OF SERVICE: June 26, 2024 TIME: 10:08 AM PATIENT IDENTITY VERIFICATION COMPLETED USING TWO (2) IDENTIFIERS: Name and Date of confirmed by patient verbally. FALL SCREENING: Has the patient had 2 falls in the last year or 1 fall with injury or currently using an Ambulatory Assistive Device (Walker, Cane, Wheelchair, Crutches, etc.)? No PATIENT GENDER DATA: Male PATIENT RELEVANT IMPLANT DATA REVIEWED: Not Applicable PATIENT PRESENTS WITH AN IMPLANTABLE OR ATTACHED HUMAN RESOURCES TALENT MANAGER: No RADIOLOGY DEPARTMENT: General X-ray: Exam(s) Completed: Chest X-Ray PERIPHERAL IV DATA: Not applicable SIGNED BY: Elena Wiseman, (R) June 26, 2024 10:08 [facility]10-29-2024 NoteHNO ID: [id number] Author: HANG COLÓN APRN.EMERY GRINDER Service: ? Author Type: Nurse Practitioner Type: Progress Notes Filed: 06/26/2024 10:30 Note Text: CC: Patient presents with: Sinus Problem: sinus pressure, drainage and cough x 3 days HPI: Carl Gross is a 39 year old male who presents to the office with complaint of head congestion, cough, productive, sinus symptoms, and ear symptoms for a few days. Symptoms are staying the same. Associated symptoms includes ear pressure and sore throat. Denies nausea, vomiting , and diarrhea. Treatments tried include nothing so far. with no relief of symptoms. Sick contacts: unknown. History of asthma, frequent episodes of bronchitis, chronic bronchitis, bronchiectasis or COPD: No Smoker: No Seasonal/environmental allergies: No The ROS is otherwise negative. The patient's pmh, medications, allergies, and past visits are reviewed. PHYSICAL EXAM: BP 132/88 Pulse 74 Temp 36.7 ?C (98.1 ?F) Resp 16 Wt 114.5 kg (252 lb 6.8 oz) SpO2 96% BMI 33.30 kg/m? General appearance: alert, cooperative, pleasant, in no acute distress Head: Normocephalic Eyes: EOM's intact, conjunctiva pink and moist, no icterus, sclera white, non-injected Ears: Right ear: External ear/canal- Normal, TM - clear with good landmarks. Left ear: External ear/canal- Normal, TM - clear with good landmarks Oropharynx:moderate erythema, without exudates present Heart: Negative. RRR without obvious murmur, gallop, or rubs. No ectopy. Lungs: mild wheezing on right lower lobe PAST MEDICAL HISTORY Diagnosis Date Acute right-sided back pain with sciatica Arthritis Asthma Awareness under anesthesia Dysthymia 02/03/2022 Eosinophilic esophagitis THA (generalized anxiety disorder) Generalized anxiety disorder Obstructive sleep apnea Palpitations Seasonal allergies Well adult exam PAST SURGICAL HISTORY Procedure Laterality Date ABDOMINAL SURGERY HX APPENDECTOMY HX 2020 COLONOSCOPY 01/21/2021 EGD 10/22/2020 Active esophagitis with increased intraepithelial eosinophils,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 EGD 01/21/2021 PAST SURGICAL HISTORY OF 02/2012 left foot surgery PAST SURGICAL HISTORY OF 2009 repair tendon right hand PAST SURGICAL HISTORY OF 05/2018 Throat PAST SURGICAL HISTORY OF Right 12/05/2023 arthroscopic knee- meniscus repair SINUS SURGERY HX 2016 ALLERGIES Bee Sting and Dermabond [2-Octyl Cyanoacrylate] MEDICATIONS EPINEPHrine (EPIPEN) 0.3 mg/0.3 mL auto-injector Inject at onset of bee venom sting omeprazole (PRILOSEC) 40 mg capsule Take 1 capsule by mouth two times a day. Take 30 min before breakfast and dinner Naproxen Sodium 550 mg tablet Take 550 mg by mouth two times a day with meals. albuterol HFA (PROAIR HFA) 90 mcg/actuation inhaler Inhale 2 Puffs as instructed every 4 hours as needed. naproxen (NAPROSYN) 500 mg tablet Take 1 tablet by mouth three times a day with meals. Take with food. traZODone (DESYREL) 100 mg tablet Take 1-2 tablets by mouth daily at bedtime. oxyCODONE-acetaminophen (PERCOCET) 5-325 mg tablet sertraline (ZOLOFT) 50 mg tablet Take 1 tablet by mouth once daily. dupilumab (DUPIXENT PEN) 300 mg/2 mL pen injection Inject 300 mg subcutaneously one time a week. allopurinol (ZYLOPRIM) 100 mg tablet Take 1 tablet by mouth once daily. For gout. fluticasone (FLONASE) 50 mcg/actuation nasal spray Use 1 [place] in each nostril daily at bedtime. montelukast (SINGULAIR) 10 mg tablet Take 1 tablet by mouth daily at bedtime. amino acids (BCAA ORAL) Take by mouth once daily. cetirizine (ZYRTEC) 10 mg tablet Take 10 mg by mouth once daily. aspirin, enteric coated (ASPIRIN, ENTERIC COATED) 81 mg EC tablet Take 81 mg by mouth once daily. (Patient not taking: Reported on 06/26/2024) cyclobenzaprine (FLEXERIL) 10 mg tablet Take 1 tablet by mouth three times a day as needed for muscle spasm. (Patient not taking: Reported on 06/26/2024) dupilumab (DUPIXENT PEN) 300 mg/2 mL pen injection Inject 300 mg subcutaneously one time a week. dupilumab 300 mg/2 mL subcutaneous syringe (DUPIXENT SYRINGE) Inject 2 mL subcutaneously one time a week. budesonide (PULMICORT) 0.5 mg/2 mL nebulizer solution For eosinophilic esophagitis. Mix 4 respules with 5 packs of Splenda and swallow daily. Do not eat or drink for 30 minutes after (Patient not taking: Reported on 12/02/2023) FAMILY HISTORY Problem Relation Age of Onset Cancer Father thyroid? Cancer Mother thyroid Hypertension Maternal Grandfather Cancer Maternal Grandmother thyroid Hypertension Maternal Grandmother Anesthesia Problems No Family History Social History Tobacco Use Smoking status: Never Smokeless tobacco: Never Vaping Use (more content not included)...[facility]10-[facility]24 History of Present illness Narrative* Hang Colón APRN.EMERY GRINDER - 06/26/2024 10:00 AM EDT CC: Patient presents with: Sinus Problem: sinus pressure, drainage and cough x 3 days HPI: Carl Gross is a 39 year old male who presents to the office with complaint of head congestion, cough, productive, sinus symptoms, and ear symptoms for a few days. Symptoms are staying the same. Associated symptoms includes ear pressure and sore throat. Denies nausea, vomiting , and diarrhea. Treatments tried include nothing so far. with no relief of symptoms. Sick contacts: unknown. History of asthma, frequent episodes of bronchitis, chronic bronchitis, bronchiectasis or COPD: No Smoker: No Seasonal/environmental allergies: No The ROS is otherwise negative. The patient's pmh, medications, allergies, and past visits are reviewed. PHYSICAL EXAM: BP 132/88 Pulse 74 Temp 36.7 C (98.1 F) Resp 16 Wt 114.5 kg (252 lb 6.8 oz) SpO2 96% BMI 33.30 kg/m General appearance: alert, cooperative, pleasant, in no acute distress Head: Normocephalic Eyes: EOM's intact, conjunctiva pink and moist, no icterus, sclera white, non-injected Ears: Right ear: External ear/canal- Normal, TM - clear with good landmarks. Left ear: External ear/canal- Normal, TM - clear with good landmarks Oropharynx:moderate erythema, without exudates present Heart: Negative. RRR without obvious murmur, gallop, or rubs. No ectopy. Lungs: mild wheezing on right lower lobe PAST MEDICAL HISTORY Diagnosis Date Acute right-sided back pain with sciatica Arthritis Asthma Awareness under anesthesia Dysthymia 02/03/2022 Eosinophilic esophagitis THA (generalized anxiety disorder) Generalized anxiety disorder Obstructive sleep apnea Palpitations Seasonal allergies Well adult exam PAST SURGICAL HISTORY Procedure Laterality Date ABDOMINAL SURGERY HX APPENDECTOMY HX 2020 COLONOSCOPY 01/21/2021 EGD 10/22/2020 Active esophagitis with increased intraepithelial eosinophils,Inflamed gastric cardiac type mucosa with reactive epithelial changes and focal pancreatic heterotopia, Active esophagitis with increasedintraepithelial eosinophils, small mass lesion was found at the gastroesophageal junction. EGD 01/21/2021 PAST SURGICAL HISTORY OF 02/2012 left foot surgery PAST SURGICAL HISTORY OF 2009 repair tendon right hand PAST SURGICAL HISTORY OF 05/2018 Throat PAST SURGICAL HISTORY OF Right 12/05/2023 arthroscopic knee- meniscus repair SINUS SURGERY HX 2016 ALLERGIES Bee Sting and Dermabond [2-Octyl Cyanoacrylate] MEDICATIONS EPINEPHrine (EPIPEN) 0.3 mg/0.3 mL auto-injector Inject at onset of bee venom sting omeprazole (PRILOSEC) 40 mg capsule Take 1 capsule by mouth two times a day. Take 30 min before breakfast and dinner Naproxen Sodium 550 mg tablet Take 550 mg by mouth two times a day with meals. albuterol HFA (PROAIR HFA) 90 mcg/actuation inhaler Inhale 2 Puffs as instructed every 4 hours as needed. naproxen (NAPROSYN) 500 mg tablet Take 1 tablet by mouth three times a day with meals. Take with food. traZODone (DESYREL) 100 mg tablet Take 1-2 tablets by mouth daily at bedtime. oxyCODONE-acetaminophen (PERCOCET) 5-325 mg tablet sertraline (ZOLOFT) 50 mg tablet Take 1 tablet by mouth once daily. dupilumab (DUPIXENT PEN) 300 mg/2 mL pen injection Inject 300 mg subcutaneously one time a week. allopurinol (ZYLOPRIM) 100 mg tablet Take 1 tablet by mouth once daily. For gout. fluticasone (FLONASE) 50 mcg/actuation nasal spray Use 1 [place] in each nostril daily at bedtime. montelukast (SINGULAIR) 10 mg tablet Take 1 tablet by mouth daily at bedtime. amino acids (BCAA ORAL) Take by mouth once daily. cetirizine (ZYRTEC) 10 mg tablet Take 10 mg by mouth once daily. aspirin, enteric coated (ASPIRIN, ENTERIC COATED) 81 mg EC tablet Take 81 mg by mouth once daily. (Patient not taking: Reported on 06/26/2024) cyclobenzaprine (FLEXERIL) 10 mg tablet Take 1 tablet by mouth three times a day as needed for muscle spasm. (Patient not taking: Reported on 06/26/2024) dupilumab (DUPIXENT PEN) 300 mg/2 mL pen injection Inject 300 mg subcutaneously one time a week. dupilumab 300 mg/2 mL subcutaneous syringe (DUPIXENT SYRINGE) Inject 2 mL subcutaneously one time aweek. budesonide (PULMICORT) 0.5 mg/2 mL nebulizer solution For eosinophilic esophagitis. Mix 4 respules with 5 packs of Splenda and swallow daily. Do not eat or drink for 30 minutes after (Patient not taking: Reported on 12/02/2023) FAMILY HISTORY Problem Relation Age of Onset Cancer Father thyroid? Cancer Mother thyroid Hypertension Maternal Grandfather Cancer Maternal Grandmother thyroid Hypertension Maternal Grandmother Anesthesia Problems No Family History Social History Tobacco Use Smoking status: Never Smokeless tobacco: Never Vaping Use Vaping status: Never Used Substance Use Topics Alcohol use: Yes Alcohol/week: 5.0 standard drinks of alcohol Types: 3 Standard drinks or equivalent, 2 Cans of Beer (12oz) per week Comment: occasional alcohol use Drug use: No ASSESSMENT/PLAN: 1. Acute cough - ICD9: 786.2, ICD10: R05.1 (primary diagnosis) - XR CHEST 2V FRONTAL/LAT * * * * Physician Interpretation * * * * EXAMINATION: CHEST RADIOGRAPH (2 VIEW FRONTAL & LATERAL) CLINICAL HISTORY: Acute cough MQ: [id number] EXAM DATE/TIME: 06/26/2024 10:13 AM COMPARISON: Chest x-ray dated 12/28/2017 RESULT: Lines, tubes, and devices: None. Lungs and pleura: No consolidation. No lung mass. No pleural effusion. No pneumothorax. Cardiomediastinal silhouette: Normal cardiomediastinal silhouette. Bones and soft tissues: Degenerative changes are present within the thoracic spine. IMPRESSION IMPRESSION: No acute radiographic abnormality. Comparator Operator: ANALI Transcribe Date/Time: Jun 26 2024 10:18A Dictated by : SYMONE MONZON MD 2. Strep throat - ICD9: 034.0, ICD10: J02.0 - AMOXICILLIN 500 MG CAPSULE Prescription instructions reviewed with patient as applicable. Potential red flag symptoms discussed with the patient. Reviewed appropriate action plan to take if red flag symptoms occur. Patient agreeable to treatment plan. Hang Colón APRN.EMERY GRINDER documented [facility] Nurse Note* Nora Flowers RN - 06/12/2024 9:14 AM EDT Pt is alert and awake, denies pain, nausea and discomfort at this time. Discussed DC instructions, the pt and Marizol have no questions at this time. Pt wheeled out of the unit in a wheelchair by Marizol. [facility] Nurse Note* Nora Flowers RN - 06/12/2024 9:14 AM EDT Pt is alert and awake, denies pain, nausea and discomfort at this time. Discussed DC instructions, the pt and Marizol have no questions at this time. Pt wheeled out of the unit in a wheelchair by Marizol. * Nora Flowers RN - 06/12/2024 8:55 AM EDT AMBULATORY PATIENT EDUCATION NOTE TOPIC: GI PROCEDURES: Esophagogastroduodenoscopy(EGD) for control of bleeding,dilation(any means),imaging,tube placement Esophagogastroduodenoscopy(EGD) with or without biopies based on clinical findings, removal of polyps or lesions READINESS TO LEARN INSTRUCTION PROVIDED TO: Patient and family member COGNITIVE ABILITY: Alert and oriented PTED MOTIVATION TO LEARN: Eager Interested FAMILY SUPPORT: High - Very involved in pt care IPATIENT LEARNS BEST BY: Individual Instruction Written Instruction - Hand-outs Verbal Instruction FACTORS AFFECTING LEARNING: None PHYSICAL LIMITATIONS AFFECTING LEARNING: None LEARNING RESPONSE METHOD OF INSTRUCTION: Individual instruction PATIENT / FAMILY RESPONSE: Verbalizes understanding of: WORSENING CONDITION- Signs and symptoms of aworsening condition that warrant a call to the physician FOLLOW-UP PLAN: Patient instructed to call with any further issues Recommend - Recommend continued instruction and follow up as directed Contact information given. SUPPLEMENTAL MATERIAL: Procedure Discharge Instructions REFERRAL (RECOMMENDATION): None * Nora Flowers RN - 06/12/2024 8:33 AM EDT Pt is drowsy but easy to awaken. Pt's spouse- Marizol at bedside. Dr. Da Silva at bedside speaking with the pt and Marizol. Pt denies pain, nausea and discomfort at this time. * Nora Flowers RN - 06/12/2024 7:35 AM EDT PRE OP LEARNING ASSESSMENT PROCEDURE/SURGERY: GI PROCEDURES: EGD READINESS TO LEARN COGNITIVE ABILITY: Alert and oriented MOTIVATION TO LEARN: Eager Interested FAMILY SUPPORT: Unable to assess - Family not present PATIENT LEARNS BEST BY: Individual Instruction Verbal Instruction FACTORS AFFECTING LEARNING: None PHYSICAL LIMITATIONS AFFECTING LEARNING: None Electronically Signed By: Nora Flowers RN In Department: GASTROENTEROLOGY documented in this encounterReg[facility]10-15-2024 Nurse Note* Nora Flowers RN - 06/12/2024 8:55 AM EDT AMBULATORY PATIENT EDUCATION NOTE TOPIC: GI PROCEDURES: Esophagogastroduodenoscopy(EGD) for control of bleeding,dilation(any means),imaging,tube placement Esophagogastroduodenoscopy(EGD) with or without biopies based on clinical findings, removal of polyps or lesions READINESS TO LEARN INSTRUCTION PROVIDED TO: Patient and family member COGNITIVE ABILITY: Alert and oriented PTED MOTIVATION TO LEARN: Eager Interested FAMILY SUPPORT: High - Very involved in pt care IPATIENT LEARNS BEST BY: Individual Instruction Written Instruction - Hand-outs Verbal Instruction FACTORS AFFECTING LEARNING: None PHYSICAL LIMITATIONS AFFECTING LEARNING: None LEARNING RESPONSE METHOD OF INSTRUCTION: Individual instruction PATIENT / FAMILY RESPONSE: Verbalizes understanding of: WORSENING CONDITION- Signs and symptoms of aworsening condition that warrant a call to the physician FOLLOW-UP PLAN: Patient instructed to call with any further issues Recommend - Recommend continued instruction and follow up as directed Contact information given. SUPPLEMENTAL MATERIAL: Procedure Discharge Instructions REFERRAL (RECOMMENDATION): None [facility] Nurse Note* Nora Flowers RN - 06/12/2024 8:33 AM EDT Pt is drowsy but easy to awaken. Pt's spouse- Marizol at bedside. Dr. Da Silva at bedside speaking with the pt and Marizol. Pt denies pain, nausea and discomfort at this time. [facility]10-15-2024 NoteQ3 Patient Name: Carl Gross Procedure Date: 06/12/2024 8:01 AM Date of : 1985 Admit Type: Outpatient Age: 39 Gender: Male Note Status: Finalized Attending MD: Loraine Da Silva MD, [id number] Procedure: Upper GI endoscopy Indications: Dysphagia Providers: Loraine Da Silva MD Patient Profile: This is a 39 year old male. Refer to note in patient chart for documentation of history and physical. Referring Physician: Robi Hendrickson MD (Referring MD) Medicines: General Anesthesia Complications: No immediate complications. Requesting Provider: Procedure: Pre-Anesthesia Assessment: - Prior to the procedure, a History and Physical was performed, and patient medications and allergies were reviewed. The patient is competent. The risks and benefits of the procedure and the sedation options and risks were discussed with the patient. All questions were answered and informed consent was obtained. Patient identification and proposed procedure were verified by the physician in the pre-procedure area. Mental Status Examination: alert and oriented. Airway Examination: normal oropharyngeal airway and neck mobility. Respiratory Examination: clear to auscultation. CV Examination: normal. Prophylactic Antibiotics: The patient does not require prophylactic antibiotics. Prior Anticoagulants: The patient has taken no anticoagulant or antiplatelet agents. ASA Grade Assessment: II - A patient with mild systemic disease. After reviewing the risks and benefits, the patient was deemed in satisfactory condition to undergo the procedure. The anesthesia plan was to use general anesthesia. Immediately prior to administration of medications, the patient was re-assessed for adequacy to receive sedatives. The heart rate, respiratory rate, oxygen saturations, blood pressure, adequacy of pulmonary ventilation, and response to care were monitored throughout the procedure. The physical status of the patient was re-assessed after the procedure. After obtaining informed consent, the endoscope was passed under direct vision. Throughout the procedure, the patient's blood pressure, pulse, and oxygen saturations were monitored continuously. The Endoscope was introduced through the mouth, and advanced to the second part of duodenum. The upper GI endoscopy was accomplished without difficulty. The patient tolerated the procedure well. Moderate Sedation: General anesthesia was administered by the anesthesia team. Findings: The examined duodenum was normal. The entire examined stomach was normal. Mucosal changes including ringed esophagus were found in the entire esophagus. Esophageal findings were graded using the Eosinophilic Esophagitis Endoscopic Reference Score (EoE-EREFS) as: Edema Grade 0 Normal (distinct vascular markings), Rings Grade 1 Mild (subtle circumferential ridges seen on esophageal distension), Exudates Grade 0 None (no white lesions seen), Furrows Grade 0 None (no vertical lines seen) and Stricture none (no stricture found). Biopsies were obtained from the proximal and distal esophagus with cold forceps for histology of suspected eosinophilic esophagitis. LA Grade B (one or more mucosal breaks greater than 5 mm, not extending between the tops of two mucosal folds) esophagitis with no bleeding was found. Impression: - Normal examined duodenum. - Normal stomach. - Esophageal mucosal changes secondary to eosinophilic esophagitis. - LA Grade B reflux esophagitis with no bleeding. - Biopsies were taken with a cold forceps for evaluation of eosinophilic esophagitis. Estimated Blood Loss: Estimated blood loss: none. Recommendation: - Discharge patient to home (ambulatory). - Resume previous diet today. - Patient has a (more content not included)...[id number] NoteQ3 Patient Name: Carl Gross Procedure Date: 06/12/2024 8:01 AM Date of : 1985 Admit Type: Outpatient Age: 39 Gender: Male Note Status: Finalized Attending MD: Loraine Da Silva MD, [id number] Procedure: Upper GI endoscopy Indications: Dysphagia Providers: Loraine Da Silva MD Patient Profile: This is a 39 year old male. Refer to note in patient chart for documentation of history and physical. Referring Physician: Robi Hendrickson MD (Referring MD) Medicines: General Anesthesia Complications: No immediate complications. Requesting Provider: Procedure: Pre-Anesthesia Assessment: - Prior to the procedure, a History and Physical was performed, and patient medications and allergies were reviewed. The patient is competent. The risks and benefits of the procedure and the sedation options and risks were discussed with the patient. All questions were answered and informed consent was obtained. Patient identification and proposed procedure were verified by the physician in the pre-procedure area. Mental Status Examination: alert and oriented. Airway Examination: normal oropharyngeal airway and neck mobility. Respiratory Examination: clear to auscultation. CV Examination: normal. Prophylactic Antibiotics: The patient does not require prophylactic antibiotics. Prior Anticoagulants: The patient has taken no anticoagulant or antiplatelet agents. ASA Grade Assessment: II - A patient with mild systemic disease. After reviewing the risks and benefits, the patient was deemed in satisfactory condition to undergo the procedure. The anesthesia plan was to use general anesthesia. Immediately prior to administration of medications, the patient was re-assessed for adequacy to receive sedatives. The heart rate, respiratory rate, oxygen saturations, blood pressure, adequacy of pulmonary ventilation, and response to care were monitored throughout the procedure. The physical status of the patient was re-assessed after the procedure. After obtaining informed consent, the endoscope was passed under direct vision. Throughout the procedure, the patient's blood pressure, pulse, and oxygen saturations were monitored continuously. The Endoscope was introduced through the mouth, and advanced to the second part of duodenum. The upper GI endoscopy was accomplished without difficulty. The patient tolerated the procedure well. Moderate Sedation: General anesthesia was administered by the anesthesia team. Findings: The examined duodenum was normal. The entire examined stomach was normal. Mucosal changes including ringed esophagus were found in the entire esophagus. Esophageal findings were graded using the Eosinophilic Esophagitis Endoscopic Reference Score (EoE-EREFS) as: Edema Grade 0 Normal (distinct vascular markings), Rings Grade 1 Mild (subtle circumferential ridges seen on esophageal distension), Exudates Grade 0 None (no white lesions seen), Furrows Grade 0 None (no vertical lines seen) and Stricture none (no stricture found). Biopsies were obtained from the proximal and distal esophagus with cold forceps for histology of suspected eosinophilic esophagitis. LA Grade B (one or more mucosal breaks greater than 5 mm, not extending between the tops of two mucosal folds) esophagitis with no bleeding was found. Impression: - Normal examined duodenum. - Normal stomach. - Esophageal mucosal changes secondary to eosinophilic esophagitis. - LA Grade B reflux esophagitis with no bleeding. - Biopsies were taken with a cold forceps for evaluation of eosinophilic esophagitis. Estimated Blood Loss: Estimated blood loss: none. Recommendation: - Discharge patient to home (ambulatory). - Resume previous diet today. - Patient has a contact number available for emergencies. The signs and symptoms of potential delayed complications were discussed with the patient. Return to normal activities tomorrow. Written discharge instructions were provided to the patient. Procedure Code(s): --- Professional --- 21629 Diagnosis Code(s): --- Professional --- K20.0 K21.00 R13.10 CPT copyright 2020 [employer]. All rights reserved. Attending Participation: I personally performed the entire procedure. Scope In: 8:19:08 AM Scope Out: 8:22:42 AM MD Loraine Tripp MD 06/12/2024 8:27:56 AM This report has been signed electronically by Loraine Da Silva MD Number of Addenda: 0 Note Initiated On: 06/12/2024 8:01 [facility]10-15-2024 Nurse Note* Nora Flowers RN - 06/12/2024 7:35 AM EDT PRE OP LEARNING ASSESSMENT PROCEDURE/SURGERY: GI PROCEDURES: EGD READINESS TO LEARN COGNITIVE ABILITY: Alert and oriented MOTIVATION TO LEARN: Eager Interested FAMILY SUPPORT: Unable to assess - Family not present PATIENT LEARNS BEST BY: Individual Instruction Verbal Instruction FACTORS AFFECTING LEARNING: None PHYSICAL LIMITATIONS AFFECTING LEARNING: None Electronically Signed By: Nora Flowers RN In Department: GASTROENTEROLOGY [facility]10-08-2024 Telephone encounter Note* Telephone Encounter - Christy Tee LPN - 06/05/2024 8:52 AM EDT Phoned patient left detailed message with notes from Dr Horton on voicemail, and rx sent to pharmacy. [facility]10-08-2024 Miscellaneous Notes* Telephone Encounter - Christy Tee LPN - 06/05/2024 8:52 AM EDT Phoned patient left detailed message with notes from Dr Horton on voicemail, and rx sent to pharmacy. * Telephone Encounter - Simba Horton DO - 06/05/2024 7:52 AM EDT Agree with below Epi pen sent to pharmacy Please notify patient also to take liquid or chewable benadryl 25-50 mg at onset of venom sting Simba Horton DO The following approved medication requests have been transmitted electronically. Requested Prescriptions Signed Prescriptions Disp Refills EPINEPHrine (EPIPEN) 0.3 mg/0.3 mL auto-injector 2 Each 1 Sig: Inject at onset of bee venom sting Authorizing Provider: SIMBA HORTON DO * Telephone Encounter - Steph Root MA - 06/04/2024 12:44 PM EDT Pt sent in [employer] message today asking about an Rx for Epipen. Did ask pt if breathing symptoms are now normal. Which pt states they are. Swelling has improved, but feels stinger may still be in hisskin and he's going to try and get it out. Please advise. Steph Root MA Pt message: Good morning, Over the weekend I was stung twice on the arm. I had slight breathing problems and major swelling which is mostly down now. I was wondering if I could get a epi pen for emergency cases like over the weekend. [facility] Telephone encounter Note * Telephone Encounter - Simba Horton DO - 06/05/2024 7:52 AM EDT Agree with below Epi pen sent to pharmacy Please notify patient also to take liquid or chewable benadryl 25-50 mg at onset of venom sting Simba Horton DO The following approved medication requests have been transmitted electronically. Requested Prescriptions Signed Prescriptions Disp Refills EPINEPHrine (EPIPEN) 0.3 mg/0.3 mL auto-injector 2 Each 1 Sig: Inject at onset of bee venom sting Authorizing Provider: SIMBA HORTON DO [facility]10-07-2024 Telephone encounter Note* Telephone Encounter - Steph Root MA - 06/04/2024 12:44 PM EDT Pt sent in [employer] message today asking about an Rx for Epipen. Did ask pt if breathing symptoms are now normal. Which pt states they are. Swelling has improved, but feels stinger may still be in hisskin and he's going to try and get it out. Please advise. Steph Root MA Pt message: Good morning, Over the weekend I was stung twice on the arm. I had slight breathing problems and major swelling which is mostly down now. I was wondering if I could get a epi pen for emergency cases like over the weekend. [facility]10-07-2024 Telephone encounter Note* Telephone Encounter - Steph Root MA - 06/04/2024 12:43 PM EDT Asked pt if breathing symptoms subsided, return to normal? Turned into TE and routed to PCP. Steph Root MA [facility]10-07-2024 Miscellaneous Notes* Telephone Encounter - Steph Root MA - 06/04/2024 12:43 PM EDT Asked pt if breathing symptoms subsided, return to normal? Turned into TE and routed to PCP. Steph Root MA documented in this encounterReg[facility] Telephone encounter Note * Telephone Encounter - Vamsi Lea MA - 05/07/2024 10:56 AM EDT Patient filled Percocet 5/325 MG on 05/02/24 qty: 28 tablets prescribed by Joaquín Lopez at [facility] & picked up 05/02/24. Patient notified via [employer] message. Vamsi Lea MA [facility]09-09-2024 Miscellaneous Notes* Telephone Encounter - Vamsi Lea MA - 05/07/2024 10:56 AM EDT Patient filled Percocet 5/325 MG on 05/02/24 qty: 28 tablets prescribed by Joaquín Lopez at [facility] & picked up 05/02/24. Patient notified via [employer] message. Vamsi Lea MA * Telephone Encounter - Simba Horton DO - 05/07/2024 7:46 AM EDT Please call patient to clarify if he was able to get his pain medication now from orthopedics Also I am not aware of [facility]. Would assume they do a good job Simba Horton DO * Telephone Encounter - Magnolia Arreguin MA - 05/01/2024 3:08 PM EDT Please see pt message -- Hi. I forgot to go over a couple things this morning. - I called my ortho doctor on a refill of oxycodone for pain and it s going to be a few days beforethey can submit a refill. Can I have you send a prescription as we discussed. - I forgot to ask about therapy for my knee. Is [facility] good? I m just not happy where I m at. documented in [facility]Reg[facility] Telephone encounter Note * Telephone Encounter - Simba Horton DO - 05/07/2024 7:46 AM EDT Please call patient to clarify if he was able to get his pain medication now from orthopedics Also I am not aware of [facility]. Would assume they do a good job Simba Horton DO [facility]09-03-2024 Telephone encounter Note* Telephone Encounter - Magnolia Arreguin MA - 05/01/2024 3:08 PM EDT Please see pt [employer] message -- Hi. I forgot to go over a couple things this morning. - I called my ortho doctor on a refill of oxycodone for pain and it s going to be a few days beforethey can submit a refill. Can I have you send a prescription as we discussed. - I forgot to ask about therapy for my knee. Is [facility] good? I m just not happy where I m at. [facility]09-03-2024 Telephone encounter Note* Telephone Encounter - Magnolia Arreguin MA - 05/01/2024 3:07 PM EDT Turned into TE Magnolia Arreguin MA [facility]09-03-2024 Miscellaneous Notes* Telephone Encounter - Magnolia Arreguin MA - 05/01/2024 3:07 PM EDT Turned into TE Magnolia Arreguin MA documented in this encounterReg[facility]-2024 Instructions* Patient Instructions* Simba Horton DO - 05/01/2024 9:42 AM EDT Magnesium glycinate or gluconate 400-500 mg a bedtime. documented in this encounterRegency Hospital [facility]09-03-2024 NoteHNO ID: [id number] Author: SIMBA HORTON DO Service: ? Author Type: Physician Type: Progress Notes Filed: 05/01/2024 10:47 Note Text: CC: Carl Gross is a 39 year old male who presents to the office to establish care. HPI: Struggling with falling asleep and staying asleep. Thinks it may be pain related - has been struggling to sleep since he had his first knee surgery in November. Has been trying over the counter medication- melatonin and magnesium and benadryl. He would be interested in trying a medication to help get sleep cycle back in place. Willing to have fasting labs drawn THA, stable, taking sertraline and prn alprazolam Right knee recent surgery with meniscectomy and cartilage repair. He is limping, using crutches and having some post operative expected pain. No fevers or chills. No falls. Intermittent bloating, no blood in stools PAST MEDICAL HISTORY No date: Acute right-sided back pain with sciatica No date: Arthritis No date: Asthma No date: Awareness under anesthesia 02/03/2022: Dysthymia No date: Eosinophilic esophagitis No date: THA (generalized anxiety disorder) No date: Generalized anxiety disorder No date: Obstructive sleep apnea No date: Palpitations No date: Seasonal allergies No date: Well adult exam PAST SURGICAL HISTORY No date: ABDOMINAL SURGERY HX 2020: APPENDECTOMY HX 01/21/2021: COLONOSCOPY 10/22/2020: EGD Comment: Active esophagitis with increased intraepithelial eosinophils,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 01/21/2021: EGD 02/2012: PAST SURGICAL HISTORY OF Comment: left foot surgery 2009: PAST SURGICAL HISTORY OF Comment: repair tendon right hand 05/2018: PAST SURGICAL HISTORY OF Comment: Throat 12/05/2023: PAST SURGICAL HISTORY OF; Right Comment: arthroscopic knee- meniscus repair 2016: SINUS SURGERY HX Social History: Social History Tobacco Use Smoking status: Never Smokeless tobacco: Never Vaping Use Vaping status: Never Used Substance Use Topics Alcohol use: Yes Alcohol/week: 5.0 standard drinks of alcohol Types: 3 Standard drinks or equivalent, 2 Cans of Beer (12oz) per week Comment: occasional alcohol use Drug use: No FAMILY HISTORY Problem Relation Age of Onset Cancer Father thyroid? Cancer Mother thyroid Hypertension Maternal Grandfather Cancer Maternal Grandmother thyroid Hypertension Maternal Grandmother Anesthesia Problems No Family History Current Outpatient prescriptions: Naproxen Sodium 550 mg tablet Take 550 mg by mouth two times a day with meals. aspirin, enteric coated (ASPIRIN, ENTERIC COATED) 81 mg EC tablet Take 81 mg by mouth once daily. ALPRAZolam (XANAX) 0.25 mg tablet Take 1 tablet by mouth three times a day as needed for up to 10 days. cyclobenzaprine (FLEXERIL) 10 mg tablet Take 1 tablet by mouth three times a day as needed for muscle spasm. dupilumab (DUPIXENT PEN) 300 mg/2 mL pen injection Inject 300 mg subcutaneously one time a week. traMADol (ULTRAM) 50 mg tablet (Patient not taking: Reported on 03/16/2024) oxyCODONE-acetaminophen (PERCOCET) 5-325 mg tablet diclofenac, EC, (VOLTAREN) 75 mg EC tablet sertraline (ZOLOFT) 50 mg tablet Take 1 tablet by mouth once daily. dupilumab 300 mg/2 mL subcutaneous syringe (DUPIXENT SYRINGE) Inject 2 mL subcutaneously one time a week. dupilumab (DUPIXENT PEN) 300 mg/2 mL pen injection Inject 300 mg subcutaneously one time a week. allopurinol (ZYLOPRIM) 100 mg tablet Take 1 tablet by mouth once daily. For gout. budesonide (PULMICORT) 0.5 mg/2 mL nebulizer solution For eosinophilic esophagitis. Mix 4 respules with 5 packs of Splenda and swallow daily. Do not eat or drink for 30 minutes after (Patient not taking: Reported on 12/02/2023) omeprazole (PRILOSEC) 40 mg capsule Take 1 capsule by mouth once daily. fluticasone (FLONASE) 50 mcg/actuation nasal spray Use 1 [place] in each nostril daily at bedtime. montelukast (SINGULAIR) 10 mg tablet Take 1 tablet by mouth daily at bedtime. amino acids (BCAA ORAL) Take by mouth once daily. albuterol HFA (PROAIR HFA) 90 mcg/actuation inhaler Inhale 2 Puffs as instructed every 4 hours as needed. cetirizine (ZYRTEC) 10 mg tablet Take 10 mg by mouth once daily. Allergies: ALLERGIES Allergen Reactions Bee Sting Swelling Local swelling and shortness of breath Dermabond [2-Octyl * Rash ROS: See HPI PE: 05/01/24 0846 BP: 124/80 Pulse: 80 Resp: 16 Temp: 36.1 ?C (97 ?F) TempSrc: Right Tympanic Weight: 110.2 kg (243 lb) Height: 188 cm (6' 2) Gen: AANDO, NAD, non-toxic appearing, Pleasant, cooperative HEENT: NT/AC, PERRLA, EOMs intact b/l, nares clear and patent b/l, pharynx without erythema, exudate or lesions. Uvula midline. EACs without (more content not included)...[facility]09-03-2024 History of Present illness Narrative* Simba Horton, DO - 05/01/2024 9:17 AM EDT CC: Carl Gross is a 39 year old male who presents to the office to establish care. HPI: Struggling with falling asleep and staying asleep. Thinks it may be pain related - has been struggling to sleep since he had his first knee surgery in November. Has been trying over the counter medication- melatonin and magnesium and benadryl. He would be interested in trying a medication to help get sleep cycle back in place. Willing to have fasting labs drawn THA, stable, taking sertraline and prn alprazolam Right knee recent surgery with meniscectomy and cartilage repair. He is limping, using crutches andhaving some post operative expected pain. No fevers or chills. No falls. Intermittent bloating, no blood in stools PAST MEDICAL HISTORY No date: Acute right-sided back pain with sciatica No date: Arthritis No date: Asthma No date: Awareness under anesthesia 02/03/2022: Dysthymia No date: Eosinophilic esophagitis No date: THA (generalized anxiety disorder) No date: Generalized anxiety disorder No date: Obstructive sleep apnea No date: Palpitations No date: Seasonal allergies No date: Well adult exam PAST SURGICAL HISTORY No date: ABDOMINAL SURGERY HX 2020: APPENDECTOMY HX 01/21/2021: COLONOSCOPY 10/22/2020: EGD Comment: Active esophagitis with increased intraepithelial eosinophils,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 01/21/2021: EGD 02/2012: PAST SURGICAL HISTORY OF Comment: left foot surgery 2009: PAST SURGICAL HISTORY OF Comment: repair tendon right hand 05/2018: PAST SURGICAL HISTORY OF Comment: Throat 12/05/2023: PAST SURGICAL HISTORY OF; Right Comment: arthroscopic knee- meniscus repair 2016: SINUS SURGERY HX Social History: Social History Tobacco Use Smoking status: Never Smokeless tobacco: Never Vaping Use Vaping status: Never Used Substance Use Topics Alcohol use: Yes Alcohol/week: 5.0 standard drinks of alcohol Types: 3 Standard drinks or equivalent, 2 Cans of Beer (12oz) per week Comment: occasional alcohol use Drug use: No FAMILY HISTORY Problem Relation Age of Onset Cancer Father thyroid? Cancer Mother thyroid Hypertension Maternal Grandfather Cancer Maternal Grandmother thyroid Hypertension Maternal Grandmother Anesthesia Problems No Family History Current Outpatient prescriptions: Naproxen Sodium 550 mg tablet Take 550 mg by mouth two times a day with meals. aspirin, enteric coated (ASPIRIN, ENTERIC COATED) 81 mg EC tablet Take 81 mg by mouth once daily. ALPRAZolam (XANAX) 0.25 mg tablet Take 1 tablet by mouth three times a day as needed for up to 10 days. cyclobenzaprine (FLEXERIL) 10 mg tablet Take 1 tablet by mouth three times a day as needed for muscle spasm. dupilumab (DUPIXENT PEN) 300 mg/2 mL pen injection Inject 300 mg subcutaneously one time a week. traMADol (ULTRAM) 50 mg tablet (Patient not taking: Reported on 03/16/2024) oxyCODONE-acetaminophen (PERCOCET) 5-325 mg tablet diclofenac, EC, (VOLTAREN) 75 mg EC tablet sertraline (ZOLOFT) 50 mg tablet Take 1 tablet by mouth once daily. dupilumab 300 mg/2 mL subcutaneous syringe (DUPIXENT SYRINGE) Inject 2 mL subcutaneously one time aweek. dupilumab (DUPIXENT PEN) 300 mg/2 mL pen injection Inject 300 mg subcutaneously one time a week. allopurinol (ZYLOPRIM) 100 mg tablet Take 1 tablet by mouth once daily. For gout. budesonide (PULMICORT) 0.5 mg/2 mL nebulizer solution For eosinophilic esophagitis. Mix 4 respules with 5 packs of Splenda and swallow daily. Do not eat or drink for 30 minutes after (Patient not taking: Reported on 12/02/2023) omeprazole (PRILOSEC) 40 mg capsule Take 1 capsule by mouth once daily. fluticasone (FLONASE) 50 mcg/actuation nasal spray Use 1 [place] in each nostril daily at bedtime. montelukast (SINGULAIR) 10 mg tablet Take 1 tablet by mouth daily at bedtime. amino acids (BCAA ORAL) Take by mouth once daily. albuterol HFA (PROAIR HFA) 90 mcg/actuation inhaler Inhale 2 Puffs as instructed every 4 hours as needed. cetirizine (ZYRTEC) 10 mg tablet Take 10 mg by mouth once daily. Allergies: ALLERGIES Allergen Reactions Bee Sting Swelling Local swelling and shortness of breath Dermabond [2-Octyl * Rash ROS: See HPI PE: 05/01/24 0846 BP: 124/80 Pulse: 80 Resp: 16 Temp: 36.1 C (97 F) TempSrc: Right Tympanic Weight: 110.2 kg (243 lb) Height: 188 cm (6' 2) Gen: A&O, NAD, non-toxic appearing, Pleasant, cooperative HEENT: NT/AC, PERRLA, EOMs intact b/l, nares clear and patent b/l, pharynx without erythema, exudate or lesions. Uvula midline. EACs without erythema or debris. TMs pearly jade with intact landmarks b/l. Neck: supple, No cervical LAD, no thyromegaly, no carotid bruits CV: RRR, normal S1 and S2, no murmurs, no gallops, no rubs, Pulses 2+ and symmetric in UE and LE b/l Lungs: normal respiratory effort, CTA b/l, no wheezing or rhonchi or rales Abd: soft, NT, ND, +BS, no hepatosplenomegaly MS: right knee in bandage with normal peripheral capillary refill Neuro: CN II-XII intact b/l, strength 5/5 b/l UE and LE, DTRs 2/4 UE and LE, sensation intact. Skin: warm, dry, intact, No rashes or lesions on exposed skin. ASSESSMENT/PLAN: 1. Well adult exam - ICD9: V70.0, ICD10: Z00.00 (primary diagnosis) - Counseled on healthy diet and regular exercise - HEMOGLOBIN A1C - COMPREHENSIVE METABOLIC PANEL - COMPLETE BLOOD COUNT AND DIFFERENTIAL - THYROID STIMULATING HORMONE - VITAMIN B12 - VITAMIN D 25 HYDROXY - TESTOSTERONE, FREE AND TOTAL - MAGNESIUM 2. Acute right-sided low back pain with right-sided sciatica - ICD9: 724.2, 724.3, ICD10: M54.41 Chronic low back pain - Ice for localized tenderness - Warm moist heat for 20 min three times a day - NSAIDS- see orders - NAPROXEN 500 MG TABLET 3. Situational insomnia - ICD9: 307.41, ICD10: F51.09 rx for use for resetting sleep patterns after multiple surgeries this year. - TRAZODONE 100 MG TABLET 4. Mild intermittent asthma without complication - ICD9: 493.90, ICD10: J45.20 - Mild intermittent asthma stable - Continue current medications - Avoidance of triggers recommended 5. Eosinophilic esophagitis - ICD9: 530.13, ICD10: K20.0 Improved, found on recent EGD 6. THA (generalized anxiety disorder) - ICD9: 300.02, ICD10: F41.1 Stable, continue sertraline and prn alprazolam 7. Bloating - ICD9: 787.3, ICD10: R14.0 Continue to monitor with trying high fodmap food elimination diet Simba Horton DO To ER if develops chest pain, shortness of breath, or severe worsening of symptoms. Discussed risks, benefits, alternatives, and potential side effects of medications. Patient expressed understanding and agreed with the plan. Simba Horton DO [address] [place] [address] documented in this encounterReg[facility]24 Telephone encounter Note * Telephone Encounter - Tuan Puentes APRN.CNP - 04/26/2024 3:47 PM EDT The following approved medication requests have been transmitted electronically. Requested Prescriptions Signed Prescriptions Disp Refills ALPRAZolam (XANAX) 0.25 mg tablet 14 tablet 0 Sig: Take 1 tablet by mouth three times a day as needed for up to 10 days. Authorizing Provider: TUAN PUENTES APRN.CNP PDMP website checked and validated. All prescriptions have been APPROPRIATELY filled. No suspiciousactivity was identified. 04/26/2024 by Tuan Puentes CNP. [facility]08-29-2024 Miscellaneous Notes* Telephone Encounter - Tuan Puentes APRN.CNP - 04/26/2024 3:47 PM EDT The following approved medication requests have been transmitted electronically. Requested Prescriptions Signed Prescriptions Disp Refills ALPRAZolam (XANAX) 0.25 mg tablet 14 tablet 0 Sig: Take 1 tablet by mouth three times a day as needed for up to 10 days. Authorizing Provider: TUAN PUENTES APRN.CNP PDMP website checked and validated. All prescriptions have been APPROPRIATELY filled. No suspiciousactivity was identified. 04/26/2024 by Tuan Puentes CNP. * Telephone Encounter - Ana Cristina Marroquin RN - 04/26/2024 3:32 PM EDT [facility] calling regarding patient's prescription received for Alprazolam 0.25 mg, received 04/25/24, placed by Tuan. Pharmacist states they need a frequency on the script, please. Thank you. documented in this encounterRegency Hospital [facility]08-29-2024 Telephone encounter Note * Telephone Encounter - Ana Cristina Marroquin RN - 04/26/2024 3:32 PM EDT [facility] calling regarding patient's prescription received for Alprazolam 0.25 mg, received 04/25/24, placed by Tuan. Pharmacist states they need a frequency on the script, please. Thank you. [facility]08-28-2024 Telephone encounter Note* Telephone Encounter - Falguni Cordova - 04/25/2024 12:33 PM EDT [employer] fax rec'd 04/23 requesting Dupixent prior authorization, scanned in [facility] GOEL: [id number] Falguni [place] [facility]08-28-2024 Miscellaneous Notes* Telephone Encounter - Falguni Cordova - 04/25/2024 12:33 PM EDT [employer] fax rec'd 04/23 requesting Dupixent prior authorization, scanned in [facility] GOEL: [id number] Falguni [place] documented in this encounterRegency Hospital [facility]08-26-2024 Telephone encounter Note * Telephone Encounter - Miriam Colón MA - 04/23/2024 2:06 PM EDT Prescription Refill Information The patient has been identified by name and date of : Yes Caregiver verified no other encounters exist for this prescription request: Yes Caregiver confirmed with patient/requestor that no other refills are due, in the near future, with this provider at this time: Yes The last office visit in the department: 03/2024 Does the patient have a future office visit with this provider/department: Yes 04/2024 Requested Prescriptions Pending Prescriptions Disp Refills cyclobenzaprine (FLEXERIL) 10 mg tablet 30 tablet 0 Sig: Take 1 tablet by mouth three times a day as needed for muscle spasm. Miriam Colón MA April 23, 2024 2:06 PM [facility]08-26-2024 Miscellaneous Notes* Telephone Encounter - Miriam Colón MA - 04/23/2024 2:06 PM EDT Prescription Refill Information The patient has been identified by name and date of : Yes Caregiver verified no other encounters exist for this prescription request: Yes Caregiver confirmed with patient/requestor that no other refills are due, in the near future, with this provider at this time: Yes The last office visit in the department: 03/2024 Does the patient have a future office visit with this provider/department: Yes 04/2024 Requested Prescriptions Pending Prescriptions Disp Refills cyclobenzaprine (FLEXERIL) 10 mg tablet 30 tablet 0 Sig: Take 1 tablet by mouth three times a day as needed for muscle spasm. Miriam Colón MA April 23, 2024 2:06 PM documented in this encounterRegency Hospital [facility]08-21-2024 History of Present illness Narrative* Sweetie Tyson APRN.CNP - 04/18/2024 11:02 AM EDT * Sweetie Tyson APRN.CNP - 04/18/2024 11:00 AM EDT 04/18/2024 Patient presents with: Musculoskeletal Problem: X2 weeks after surgery(Middle of November), numbness to right hand 1st & 3rd digit SUBJECTIVE: This is a 39 year old that is here today for Above Complaints. Had surgery in November for right torn meniscus. About two weeks after surgery he developed numbness and tingling in his right ring and little finger. Reports it is constant and little finger worse thanring. He thinks maybe related to use of crutches. Is right hand dominant. 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 Has hx of ganglion cyst removal on right and had repair of tendon of rightmiddle finger due to laceration. Denies past/present neck pain, injury or surgery PAST MEDICAL HISTORY No date: Acute right-sided back pain with sciatica No date: Arthritis No date: Asthma No date: Awareness under anesthesia 02/03/2022: Dysthymia No date: Eosinophilic esophagitis No date: THA (generalized anxiety disorder) No date: Generalized anxiety disorder No date: Obstructive sleep apnea No date: Palpitations No date: Seasonal allergies No date: Well adult exam ALLERGIES Bee Sting and Dermabond [2-Octyl Cyanoacrylate] MEDICATIONS Current Outpatient Medications Medication Sig dupilumab (DUPIXENT PEN) 300 mg/2 mL pen injection Inject 300 mg subcutaneously one time a week. cyclobenzaprine (FLEXERIL) 10 mg tablet Take 1 tablet by mouth three times a day as needed for muscle spasm. (Patient not taking: Reported on 03/16/2024) traMADol (ULTRAM) 50 mg tablet (Patient not taking: Reported on 03/16/2024) oxyCODONE-acetaminophen (PERCOCET) 5-325 mg tablet diclofenac, EC, (VOLTAREN) 75 mg EC tablet sertraline (ZOLOFT) 50 mg tablet Take 1 tablet by mouth once daily. dupilumab 300 mg/2 mL subcutaneous syringe (DUPIXENT SYRINGE) Inject 2 mL subcutaneously one time aweek. dupilumab (DUPIXENT PEN) 300 mg/2 mL pen injection Inject 300 mg subcutaneously one time a week. allopurinol (ZYLOPRIM) 100 mg tablet Take 1 tablet by mouth once daily. For gout. budesonide (PULMICORT) 0.5 mg/2 mL nebulizer solution For eosinophilic esophagitis. Mix 4 respules with 5 packs of Splenda and swallow daily. Do not eat or drink for 30 minutes after (Patient not taking: Reported on 12/02/2023) omeprazole (PRILOSEC) 40 mg capsule Take 1 capsule by mouth once daily. fluticasone (FLONASE) 50 mcg/actuation nasal spray Use 1 [place] in each nostril daily at bedtime. montelukast (SINGULAIR) 10 mg tablet Take 1 tablet by mouth daily at bedtime. amino acids (BCAA ORAL) Take by mouth once daily. albuterol HFA (PROAIR HFA) 90 mcg/actuation inhaler Inhale 2 Puffs as instructed every 4 hours as needed. cetirizine (ZYRTEC) 10 mg tablet Take 10 mg by mouth once daily. No current facility-administered medications for this visit. Medications and allergies reviewed by this provider. SOCIAL HISTORY Social History Tobacco Use Smoking status: Never Smokeless tobacco: Never Vaping Use Vaping status: Never Used Substance Use Topics Alcohol use: Yes Alcohol/week: 5.0 standard drinks of alcohol Types: 3 Standard drinks or equivalent, 2 Cans of Beer (12oz) per week Comment: occasional alcohol use Drug use: No REVIEW OF SYSTEMS All other reviewed and negative other than HPI. OBJECTIVE: BP 122/84 Pulse 91 Resp 18 Wt 109.3 kg (240 lb 15.4 oz) SpO2 98% BMI 31.79 kg/m . Vital signs reviewed by this provider. APPEARANCE Well appearing, alert, in no acute distress, well-hydrated, well nourished. RIGHT ARM: No TTP, obvious deformity or muscle wasting. Positive Phalen, Tinel's, Ulnar compressionworsens numbness and tinging. 2+ radial pulse with cap refill WNL. Hand grasps equal and strong. Normal sensation Spirometry Never done HIV Screening Never done Hepatitis B Vaccine(1 of 3 - 19+ 3-dose series) due on 12/01/2024 Covid-19 Vaccine(2022- season) due on 12/01/2024 Influenza Vaccine(1) due on 04/29/2024 Annual PCP Team Chronic Disease Visit due on 12/01/2024 Lipid Screening due on 04/26/2028 DTaP,Tdap,Td Vaccine(2 - Td or Tdap) due on 09/17/2029 Colorectal Cancer Screening due on 01/21/2031 Hepatitis C Screening Completed HPV Vaccine Aged Out ASSESSMENT/PLAN: 1. Numbness and tingling of hand - ICD9: 782.0, ICD10: R20.0, R20.2 - possibly ulna tunnel - no red flag symptoms or exam findings - red flag symptoms discussed, verbalizes understanding - he is going to reach out to his orthopedic doc to ask about using a walker as the crutches maybe exacerbating this - discussed refrain from leaning on elbow or sleeping on his right side - EMG(NEURO/NI) - follow-up pending testing to ER with red flag symptoms Sweetie Tyson APRN.[facility] GRINDER Prescription instructions reviewed with patient as applicable. Patient advised if symptoms do not improve or if symptoms worsen sooner, to contact their primary care physician. Potential red flag symptoms discussed with the patient. Reviewed appropriate action plan to take if red flag symptoms occur. Patient agreeable to treatment plan. Medical Decision Making: Problems: Moderate: New problem with uncertain prognosis Data: Unique test(s) ordered: 1 Risk: Moderate: Moderate risk from testing/treatment Medical Decision Making Level: 4 - Moderate documented in [facility] NoteQ3 Patient Name: Carl Gross Procedure Date: 03/20/2024 7:23 AM Date of : 1985 Admit Type: Outpatient Age: 39 Gender: Male Note Status: Finalized Attending MD: Loraine Da Silva MD, [id number] Procedure: Upper GI endoscopy Indications: Dysphagia Providers: Loraine Da Silva MD Patient Profile: This is a 39 year old male. Refer to note in patient chart for documentation of history and physical. Referring Physician: Robi Hendrickson MD (Referring MD) Medicines: General Anesthesia Complications: No immediate complications. Requesting Provider: Procedure: Pre-Anesthesia Assessment: - Prior to the procedure, a History and Physical was performed, and patient medications and allergies were reviewed. The patient is competent. The risks and benefits of the procedure and the sedation options and risks were discussed with the patient. All questions were answered and informed consent was obtained. Patient identification and proposed procedure were verified by the physician in the pre-procedure area. Mental Status Examination: alert and oriented. Airway Examination: normal oropharyngeal airway and neck mobility. Respiratory Examination: clear to auscultation. CV Examination: normal. Prophylactic Antibiotics: The patient does not require prophylactic antibiotics. Prior Anticoagulants: The patient has taken no anticoagulant or antiplatelet agents. ASA Grade Assessment: II - A patient with mild systemic disease. After reviewing the risks and benefits, the patient was deemed in satisfactory condition to undergo the procedure. The anesthesia plan was to use general anesthesia. Immediately prior to administration of medications, the patient was re-assessed for adequacy to receive sedatives. The heart rate, respiratory rate, oxygen saturations, blood pressure, adequacy of pulmonary ventilation, and response to care were monitored throughout the procedure. The physical status of the patient was re-assessed after the procedure. After obtaining informed consent, the endoscope was passed under direct vision. Throughout the procedure, the patient's blood pressure, pulse, and oxygen saturations were monitored continuously. The Endoscope was introduced through the mouth, and advanced to the second part of duodenum. The upper GI endoscopy was accomplished without difficulty. The patient tolerated the procedure well. Moderate Sedation: General anesthesia was administered by the anesthesia team. Findings: The examined duodenum was normal. The entire examined stomach was normal. Mucosal changes including ringed esophagus were found in the entire esophagus. Esophageal findings were graded using the Eosinophilic Esophagitis Endoscopic Reference Score (EoE-EREFS) as: Edema Grade 0 Normal (distinct vascular markings), Rings Grade 1 Mild (subtle circumferential ridges seen on esophageal distension), Exudates Grade 0 None (no white lesions seen), Furrows Grade 1 Mild (vertical lines without visible depth) and Stricture present. Biopsies were obtained from the proximal and distal esophagus with cold forceps for histology of suspected eosinophilic esophagitis. A guidewire was placed and the scope was withdrawn. Dilation was performed in the entire esophagus with a Savary dilator with mild resistance at 20 mm. Post dilation reveiled evidence of mucosal disruption in the distal esophagus. Impression: - Normal examined duodenum. - Normal stomach. - Esophageal mucosal changes secondary to eosinophilic esophagitis. - Biopsies were taken with a cold forceps for evaluation of eosinophilic esophagitis. - Dilation performed in the entire esophagus. Estimated Blood Loss: Estimated blood loss was minimal. Recommendation: - Discharge patient to home (ambulatory). (more content not included)...[id number] Nurse Note* Jonelle Braxton RN - 03/20/2024 8:03 AM EDT AMBULATORY PATIENT EDUCATION NOTE TOPIC: GI PROCEDURES: Esophagogastroduodenoscopy(EGD) with or without biopies based on clinical findings, removal of polyps or lesions READINESS TO LEARN INSTRUCTION PROVIDED TO: Patient, readness to learn accessed prior to procedure COGNITIVE ABILITY: Alert and oriented PTED MOTIVATION TO LEARN: Interested FAMILY SUPPORT: High - Very involved in pt care IPATIENT LEARNS BEST BY: Individual Instruction Written Instruction - Hand-outs Verbal Instruction FACTORS AFFECTING LEARNING: None PHYSICAL LIMITATIONS AFFECTING LEARNING: None LEARNING RESPONSE METHOD OF INSTRUCTION: Individual instruction PATIENT / FAMILY RESPONSE: Verbalizes understanding of: WORSENING CONDITION- Signs and symptoms of aworsening condition that warrant a call to the physician FOLLOW-UP PLAN: Patient instructed to call with any further issues SUPPLEMENTAL MATERIAL: Procedure Discharge Instructions REFERRAL (RECOMMENDATION): None Electronically Signed By: Jonelle Braxton RN [facility] Nurse Note* Jonelle Braxton RN - 03/20/2024 8:03 AM EDT AMBULATORY PATIENT EDUCATION NOTE TOPIC: GI PROCEDURES: Esophagogastroduodenoscopy(EGD) with or without biopies based on clinical findings, removal of polyps or lesions READINESS TO LEARN INSTRUCTION PROVIDED TO: Patient, readness to learn accessed prior to procedure COGNITIVE ABILITY: Alert and oriented PTED MOTIVATION TO LEARN: Interested FAMILY SUPPORT: High - Very involved in pt care IPATIENT LEARNS BEST BY: Individual Instruction Written Instruction - Hand-outs Verbal Instruction FACTORS AFFECTING LEARNING: None PHYSICAL LIMITATIONS AFFECTING LEARNING: None LEARNING RESPONSE METHOD OF INSTRUCTION: Individual instruction PATIENT / FAMILY RESPONSE: Verbalizes understanding of: WORSENING CONDITION- Signs and symptoms of aworsening condition that warrant a call to the physician FOLLOW-UP PLAN: Patient instructed to call with any further issues SUPPLEMENTAL MATERIAL: Procedure Discharge Instructions REFERRAL (RECOMMENDATION): None Electronically Signed By: Jonelle Braxton, RN * Bouchra Payne RN - 03/20/2024 7:17 AM EDT PRE OP LEARNING ASSESSMENT PROCEDURE/SURGERY: GI PROCEDURES: EGD READINESS TO LEARN COGNITIVE ABILITY: Alert and oriented MOTIVATION TO LEARN: Interested FAMILY SUPPORT: High - Very involved in pt care PATIENT LEARNS BEST BY: Multiple Methods FACTORS AFFECTING LEARNING: None PHYSICAL LIMITATIONS AFFECTING LEARNING: None Electronically Signed By: Bouchra Payne RN In Department: GASTROENTEROLOGY documented in this encounterReg[facility] Nurse Note* Bouchra Payne RN - 03/20/2024 7:17 AM EDT PRE OP LEARNING ASSESSMENT PROCEDURE/SURGERY: GI PROCEDURES: EGD READINESS TO LEARN COGNITIVE ABILITY: Alert and oriented MOTIVATION TO LEARN: Interested FAMILY SUPPORT: High - Very involved in pt care PATIENT LEARNS BEST BY: Multiple Methods FACTORS AFFECTING LEARNING: None PHYSICAL LIMITATIONS AFFECTING LEARNING: None Electronically Signed By: Bouchra Payne RN In Department: GASTROENTEROLOGY [facility] Instructions* Patient Instructions* Lupe Sanchez PA-C - 03/16/2024 3:02 PM EDT Images from the original note were not included. [facility] PATIENT PREOPERATIVE INSTRUCTIONS No ref. provider found has scheduled you for your procedure at this surgery center: [facility] [place] Scheduling Office: [phone] --[address] [place] [address]. Please read below carefully for your personalized instructions. Dietary Restrictions: - No solid food after midnight. - You may have 12 ounces of clear liquids (water, clear juices such as apple juice or gatorade, carbonated beverages, clear tea, black coffee, jello) until 2 hours before scheduled arrival at facility. Medications: Unless instructed differently below, stay on all of your medications until your surgery. If you start any new medications after today's visit, please contact your surgeon. Pre-Surgery Med Instructions Medication Instructions dupilumab (DUPIXENT PEN) 300 mg/2 mL pen injection Do not take the day of surgery oxyCODONE-acetaminophen (PERCOCET) 5-325 mg tablet Do not take the day of surgery diclofenac, EC, (VOLTAREN) 75 mg EC tablet Stop 7 days before surgery sertraline (ZOLOFT) 50 mg tablet Take the day of surgery with a small sip of water allopurinol (ZYLOPRIM) 100 mg tablet Do not take the day of surgery omeprazole (PRILOSEC) 40 mg capsule Take the day of surgery with a small sip of water fluticasone (FLONASE) 50 mcg/actuation nasal spray Do not take the day of surgery montelukast (SINGULAIR) 10 mg tablet Do not take the day of surgery amino acids (BCAA ORAL) Do not take the day of surgery albuterol HFA (PROAIR HFA) 90 mcg/actuation inhaler Use if needed cetirizine (ZYRTEC) 10 mg tablet Do not take the day of surgery If you take any medications for erectile dysfunction-Cialis (Tadalafil), Levitra, Staxyn (Vardenafil) Viagra (Sildenenafil please do not take these for 48 hours before surgery. If you start any new medications after today's visit, please contact the surgeon's office. Blood Thinning Medications: - Stop NSAIDS (Ibuprofen, Advil, Aleve, Motrin, Celebrex, Mobic, etc.) 7 days before surgery, as directed by your surgeon. - Stop Aspirin 7 days before surgery, as directed by your surgeon. - Stop Vitamin E, ALL multi-vitamins, herbals and dietary supplements 7 days before surgery. - You may take Tylenol (Acetaminophen) or any of your pain medications that do not contain aspirin or NSAIDS as needed. Important Reminders: - If you are prescribed inhalers for breathing, continue using them. - Candy, mints, and tobacco products are NOT permitted the morning of surgery. - Hearing aids, dentures and glasses may be worn the morning of surgery. - NO jewelry, body piercings, makeup, hairpins or contacts are to be worn the day of surgery. If you develop symptoms such as a fever, cold, or flu, or have other changes to your health within TWO DAYS of scheduled surgery or the morning of surgery, please contact the surgery center above. Personal Belongings: -Please have photo ID and insurance cards. -If you do not have a copy of advance directives on file with us, please bring a copy with you on the day of surgery. - Leave ALL valuables and money at home or with family members. For Outpatient Procedures: - YOU MUST HAVE A RESPONSIBLE STRATEGY EXECUTION CONSULTANT TAKE YOU HOME. A PERMIT TECHNICIAN OR MOTORCYCLE POLICE CANNOT BE MADE A RESPONSIBLE STRATEGY EXECUTION CONSULTANT. - We recommend that a responsible person stays with you overnight to take care of you. - You cannot stay in a hotel alone after outpatient surgery. You will not be permitted to have yoursurgery, if you do not have someone to take care of you. Arrival Time for Surgery: - To obtain your arrival time for surgery, call your physician's office the day before your surgery. - If your surgery is scheduled for Tuesday, call the Tuesday before. Your surgeon s rig supervisor will tell you what time to call the office. - If you have not reached the departmental rig supervisor by 5 P.M., call [phone] after 5 P.M. the day before your surgery. Please be aware that emergency situations arise, which may delay or change your surgical time. If this happens, we will notify you as soon as possible and regret any inconvenience. If you already have an Advance Directive, please fax a copy to [phone] or email to for it to be added to your chart. If you do not have an Advance Directive, you can find the appropriate form and more information at [email or web address]. We recommend that youcomplete the Advance Directive form found on the website and bring it with you the day of your surgery. It can be witnessed and scanned into your chart that day. Lupe Sanchez PA-C documented in this encounterReg[facility]24 History and physical note * Lupe Sanchez PA-C - 03/16/2024 3:00 PM EDT Images from the original note were not included. [facility] HISTORY AND PHYSICAL EXAMINATION SERVICE DATE: 03/16/2024 SERVICE TIME: 2:50 PM PRIMARY CARE PHYSICIAN: Simba Horton, Assessment Patient has the following medical conditions which may affect elvia-operative course: Asthma -stable on Singulair and albuterol PRN, uses inhaler 2-3 times per month on average -denies new or worsening cough or SOB Eosinophilic esophagitis -on dupixent, PPI PRN -scheduled for EGD Obesity, Class I, BMI 30-34.9 -Body mass index is 30.08 kg/m . THA (generalized anxiety disorder) -on Zoloft Trejo Activity Status Index: METS: Climb a flight of stairs or walk up a hill (5.50 METs) DASI Score: 5.5 (Activity limited by recent knee surgery) Patient denies any chest pain or undue shortness of breath with the above physical activity. Clinical Frailty Scale: 2. Well STOP-Bang Score: STOP-Bang Score: 0 (Does not use CPAP since weight loss ) ANESTHESIA FINDINGS: Intubation History: No history of difficult intubation Significant Anesthesia Considerations: none Airway History: No history of difficult airway I - PHYSICAL EVALUATION AIRWAY Patient intubated: No. Mallampati: III. TM distance: >3 FB. Neck ROM: full ROM without neurological symptoms. Lip Bite Test: I DENTAL Dental findings: broken tooth. Dentures, upper: partial. II - ANESTHESIA PLAN Anesthetic plan additional comments: *PACC/TCI - anesthesia choice. Beta Yoselyn Monitoring Plan Post Procedure Analgesic Plan Prepared for Surgery: optimally prepared for surgery. CONSULTS: Patient does not require consults for optimization at this time Planned Anesthetic: anesthesia choice The Following Tests/Procedures Have Been Initiated: No orders of the defined types were placed in this encounter. This is a virtual visit using [employer] video visit. It required patient-provider interaction for themedical decision making as documented below. REASON FOR VISIT: Carl Gross is a 39 year old male who is scheduled for EGD at the request ofLoraine Robbins MDfor consultation. My final recommendation will be communicated back to the requesting physician by way of shared medical record or letter. Subjective The patient has the following: ACTIVE PROBLEM LIST Palpitations Well Adult Exam Seasonal Allergies Food Impaction of Esophagus Obesity, Class I, Bmi 30-34.9 Idiopathic Gout Involving Toe Wheezes Esophageal Dysphagia Eosinophilic Esophagitis Abdominal Pain Dysthymia Tha (Generalized Anxiety Disorder) Allergic Rhinitis Due to Allergen Acute Pain of Right Shoulder Acute Right-Sided Low Back Pain With Right-Sided Sciatica Gerd Without Esophagitis Bunion of Great Toe of Left Foot Chronic Pain of Both Shoulders Chronic Gout of Multiple Sites Acute Esophagitis Asthma COVID-19 Immunization Status Postponed - Covid-19 Vaccine ( season) Postponed until 12/01/2024 12/02/2023 Postponed until 12/01/2024 by Dena Morelos LPN (Declined at this time) 04/26/2023 Postponed until 04/26/2024 by Nicole Bob LPN (Declined at this time) 11/18/2021 Postponed until 11/18/2022 by Nicole Bob LPN (Declined at this time) Only the first 3 history entries have been loaded, but more history exists. CHIEF COMPLAINT: eosinophilic esophagitis HPI: 39 year old year old male scheduled for EGD on 03/20/24. Patient has eosinophilic esophagitis. Has been on Dupixent for about 14 weeks. Denies any fever, chills, nausea, vomiting, chest pain, abdominal pain, SOB. This is a virtual visit. The visit was conducted using [employer] video visit. It required patient-provider interaction for the medical decision making as documented below. I have communicated my name and active licensure. The patient's identity and physical location wereverified at the time of this visit. Either the patient or their legal medicare sales representative has been informed of the risks and benefits of and alternatives to treatment through a remote evaluation and consents to proceed with the evaluation remotely. REVIEW OF SYSTEMS: General: Negative for: unintentional weight change, malaise and fever. Neurological: Negative for: [employer] tumor, delirium, dementia, headaches, Parkinson's disease, seizures, TIA and strokes. Respiratory: Positive for: asthma (albuterol PRN, 2-3 times per month on average). Negative for: bronchitis, COPD, current cough, dyspnea, pneumonia within 6 weeks, tobacco use and URI < 2 weeks. Cardiovascular: Negative for: angina, arrhythmia, CAD, chest pain, CHF, DVT/PE, hyperlipidemia, hypertension, recent CO and murmur/valvular heart disease. GI: See HPI. Positive for: GERD : Negative for: BPH, dysuria, frequent urination, hematuria, urinary incontinence, nephrolithiasis, renal failure and urinary tract infection. Endocrine: Negative for: diabetes mellitus, hyperthyroidism, hypothyroidism, hyperparathyroidism and steroid for chronic problem. Hematology: No history of bleeding or clotting disorder. Patient is not taking anti-coagulation or platelet medications. No history of hematological symptoms or problems. Oncology: Negative for: CA metastasis, chemo within 30 days, disseminated cancer and radiotherapy within 90 days. Psych: Positive for: anxiety. Negative for: ADD, ADHD, bipolar disorder, depression and drug dependency. Musculoskeletal: See HPI. Positive for: joint pain. Negative for: back pain. Skin: Negative for: lesions, itching and rash. PAST MEDICAL HISTORY Diagnosis Date Acute right-sided back pain with sciatica Arthritis Asthma Awareness under anesthesia Dysthymia 02/03/2022 Eosinophilic esophagitis THA (generalized anxiety disorder) Generalized anxiety disorder Obstructive sleep apnea Palpitations Seasonal allergies Well adult exam PAST SURGICAL HISTORY Procedure Laterality Date ABDOMINAL SURGERY HX APPENDECTOMY HX 2020 COLONOSCOPY 01/21/2021 EGD 10/22/2020 Active esophagitis with increased intraepithelial eosinophils,Inflamed gastric cardiac type mucosa with reactive epithelial changes and focal pancreatic heterotopia, Active esophagitis with increasedintraepithelial eosinophils, small mass lesion was found at the gastroesophageal junction. EGD 01/21/2021 PAST SURGICAL HISTORY OF 02/2012 left foot surgery PAST SURGICAL HISTORY OF 2009 repair tendon right hand PAST SURGICAL HISTORY OF 05/2018 Throat PAST SURGICAL HISTORY OF Right 12/05/2023 arthroscopic knee- meniscus repair SINUS SURGERY HX 2015 FAMILY HISTORY Problem Relation Age of Onset Cancer Father thyroid? Cancer Mother thyroid Hypertension Maternal Grandfather Cancer Maternal Grandmother thyroid Hypertension Maternal Grandmother Anesthesia Problems No Family History Social History Tobacco Use Smoking status: Never Smokeless tobacco: Never Vaping Use Vaping Use: Never used Substance Use Topics Alcohol use: Yes Alcohol/week: 5.0 standard drinks of alcohol Types: 3 Standard drinks or equivalent, 2 Cans of Beer (12oz) per week Comment: occasional alcohol use Drug use: No Prior to Admission medications as of 03/16/24 2377 Medication Sig Last Dose Taking dupilumab (DUPIXENT PEN) 300 mg/2 mL pen injection Inject 300 mg subcutaneously one time a week. Taking Yes oxyCODONE-acetaminophen (PERCOCET) 5-325 mg tablet Taking Yes diclofenac, EC, (VOLTAREN) 75 mg EC tablet Taking Yes sertraline (ZOLOFT) 50 mg tablet Take 1 tablet by mouth once daily. Taking Yes allopurinol (ZYLOPRIM) 100 mg tablet Take 1 tablet by mouth once daily. For gout. Taking Yes omeprazole (PRILOSEC) 40 mg capsule Take 1 capsule by mouth once daily. Taking Yes fluticasone (FLONASE) 50 mcg/actuation nasal spray Use 1 [place] in each nostril daily at bedtime. Taking Yes montelukast (SINGULAIR) 10 mg tablet Take 1 tablet by mouth daily at bedtime. Taking Yes amino acids (BCAA ORAL) Take by mouth once daily. Taking Yes albuterol HFA (PROAIR HFA) 90 mcg/actuation inhaler Inhale 2 Puffs as instructed every 4 hours as needed. Taking Yes cetirizine (ZYRTEC) 10 mg tablet Take 10 mg by mouth once daily. Taking Yes cyclobenzaprine (FLEXERIL) 10 mg tablet Take 1 tablet by mouth three times a day as needed for muscle spasm. Patient not taking: Reported on 03/16/2024 Not Taking traMADol (ULTRAM) 50 mg tablet Not Taking dupilumab 300 mg/2 mL subcutaneous syringe (DUPIXENT SYRINGE) Inject 2 mL subcutaneously one time aweek. dupilumab (DUPIXENT PEN) 300 mg/2 mL pen injection Inject 300 mg subcutaneously one time a week. budesonide (PULMICORT) 0.5 mg/2 mL nebulizer solution For eosinophilic esophagitis. Mix 4 respules with 5 packs of Splenda and swallow daily. Do not eat or drink for 30 minutes after Patient not taking: Reported on 12/02/2023 No medication comments found. ALLERGIES Allergen Reactions Bee Sting Swelling Local swelling and shortness of breath Dermabond [2-Octyl * Rash Objective PHYSICAL EXAM: (if completed, exam performed via video enabled technology) General: alert and oriented and healthy appearance. Skin: normal color, no rash or lesions. HEENT: Normocephalic, atraumatic. EOMI. No notable cervical lymph nodes. Cardiovascular: Unable to self palpate pulse, B/L UE capillary refill < 3 seconds.. Respiratory: Equal chest rise BL, No respiratory distress. Abdomen: Extremities: Neurological: normal cognition and motor skills. PAIN ASSESSMENT: VITALS: Ht 6' 1[pt rpt[ (1.85m) Wt 228 lb (103.4kg) BMI 30.09 kg/(m^2). Diagnostic tests reviewed for today's visit: Lab Value Units Date High Low HB No results within date range. HCT No results within date range. WBC No results within date range. PLT No results within date range. NA No results within date range. K No results within date range. GLUC No results within date range. BUN No results within date range. CREAT No results within date range. PTSEC No results within date range. INR No results within date range. APTT No results within date range. ALT No results within date range. AST No results within date range. TBILI No results within date range. TSH No results within date range. Lab Value Units Date High Low HCGQT No results within date range. UHCG No results within date range. HCG, BODY* No results within date range. Lab Value Units Date High Low ABORHD No results within date range. ABSCREEN No results within date range. Hemoglobin A1C (%) Date Value 04/26/2023 5.3 No results found for this or any previous visit (from the past 8760 hour(s)). No results found for this or any previous visit (from the past 41402 hour(s)). Instructions Given to Patient: Instructions located in the after visit summary. Patient given verbal and written preop instructions and voices comprehension and compliance. SIGNATURE: Lupe Sanchez PA-C PATIENT NAME: Carl Gross DATE: March 16, 2024 TIME: 3:09 PM PAGER/CONTACT #: [facility]07-19-2024 History and physical note* Lupe Sanchez PA-C - 03/16/2024 3:00 PM EDT Images from the original note were not included. [facility] HISTORY AND PHYSICAL EXAMINATION SERVICE DATE: 03/16/2024 SERVICE TIME: 2:50 PM PRIMARY CARE PHYSICIAN: Simba Horton, DO Assessment Patient has the following medical conditions which may affect elvia-operative course: Asthma -stable on Singulair and albuterol PRN, uses inhaler 2-3 times per month on average -denies new or worsening cough or SOB Eosinophilic esophagitis -on dupixent, PPI PRN -scheduled for EGD Obesity, Class I, BMI 30-34.9 -Body mass index is 30.08 kg/m . THA (generalized anxiety disorder) -on Zoloft Trejo Activity Status Index: METS: Climb a flight of stairs or walk up a hill (5.50 METs) DASI Score: 5.5 (Activity limited by recent knee surgery) Patient denies any chest pain or undue shortness of breath with the above physical activity. Clinical Frailty Scale: 2. Well STOP-Bang Score: STOP-Bang Score: 0 (Does not use CPAP since weight loss ) ANESTHESIA FINDINGS: Intubation History: No history of difficult intubation Significant Anesthesia Considerations: none Airway History: No history of difficult airway I - PHYSICAL EVALUATION AIRWAY Patient intubated: No. Mallampati: III. TM distance: >3 FB. Neck ROM: full ROM without neurological symptoms. Lip Bite Test: I DENTAL Dental findings: broken tooth. Dentures, upper: partial. II - ANESTHESIA PLAN Anesthetic plan additional comments: *PACC/TCI - anesthesia choice. Beta Yoselyn Monitoring Plan Post Procedure Analgesic Plan Prepared for Surgery: optimally prepared for surgery. CONSULTS: Patient does not require consults for optimization at this time Planned Anesthetic: anesthesia choice The Following Tests/Procedures Have Been Initiated: No orders of the defined types were placed in this encounter. This is a virtual visit using [employer] video visit. It required patient-provider interaction for themedical decision making as documented below. REASON FOR VISIT: Carl Gross is a 39 year old male who is scheduled for EGD at the request ofLoraine Robbins MDfor consultation. My final recommendation will be communicated back to the requesting physician by way of shared medical record or letter. Subjective The patient has the following: ACTIVE PROBLEM LIST Palpitations Well Adult Exam Seasonal Allergies Food Impaction of Esophagus Obesity, Class I, Bmi 30-34.9 Idiopathic Gout Involving Toe Wheezes Esophageal Dysphagia Eosinophilic Esophagitis Abdominal Pain Dysthymia Tha (Generalized Anxiety Disorder) Allergic Rhinitis Due to Allergen Acute Pain of Right Shoulder Acute Right-Sided Low Back Pain With Right-Sided Sciatica Gerd Without Esophagitis Bunion of Great Toe of Left Foot Chronic Pain of Both Shoulders Chronic Gout of Multiple Sites Acute Esophagitis Asthma COVID-19 Immunization Status Postponed - Covid-19 Vaccine () Postponed until 12/01/2024 12/02/2023 Postponed until 12/01/2024 by Dena Morelos LPN (Declined at this time) 04/26/2023 Postponed until 04/26/2024 by Nicole Bob LPN (Declined at this time) 11/18/2021 Postponed until 11/18/2022 by Nicole Bob LPN (Declined at this time) Only the first 3 history entries have been loaded, but more history exists. CHIEF COMPLAINT: eosinophilic esophagitis HPI: 39 year old year old male scheduled for EGD on 03/20/24. Patient has eosinophilic esophagitis. Has been on Dupixent for about 14 weeks. Denies any fever, chills, nausea, vomiting, chest pain, abdominal pain, SOB. This is a virtual visit. The visit was conducted using [employer] video visit. It required patient-provider interaction for the medical decision making as documented below. I have communicated my name and active licensure. The patient's identity and physical location wereverified at the time of this visit. Either the patient or their legal medicare sales representative has been informed of the risks and benefits of and alternatives to treatment through a remote evaluation and consents to proceed with the evaluation remotely. REVIEW OF SYSTEMS: General: Negative for: unintentional weight change, malaise and fever. Neurological: Negative for: [employer] tumor, delirium, dementia, headaches, Parkinson's disease, seizures, TIA and strokes. Respiratory: Positive for: asthma (albuterol PRN, 2-3 times per month on average). Negative for: bronchitis, COPD, current cough, dyspnea, pneumonia within 6 weeks, tobacco use and URI < 2 weeks. Cardiovascular: Negative for: angina, arrhythmia, CAD, chest pain, CHF, DVT/PE, hyperlipidemia, hypertension, recent CO and murmur/valvular heart disease. GI: See HPI. Positive for: GERD : Negative for: BPH, dysuria, frequent urination, hematuria, urinary incontinence, nephrolithiasis, renal failure and urinary tract infection. Endocrine: Negative for: diabetes mellitus, hyperthyroidism, hypothyroidism, hyperparathyroidism and steroid for chronic problem. Hematology: No history of bleeding or clotting disorder. Patient is not taking anti-coagulation or platelet medications. No history of hematological symptoms or problems. Oncology: Negative for: CA metastasis, chemo within 30 days, disseminated cancer and radiotherapy within 90 days. Psych: Positive for: anxiety. Negative for: ADD, ADHD, bipolar disorder, depression and drug dependency. Musculoskeletal: See HPI. Positive for: joint pain. Negative for: back pain. Skin: Negative for: lesions, itching and rash. PAST MEDICAL HISTORY Diagnosis Date Acute right-sided back pain with sciatica Arthritis Asthma Awareness under anesthesia Dysthymia 02/03/2022 Eosinophilic esophagitis THA (generalized anxiety disorder) Generalized anxiety disorder Obstructive sleep apnea Palpitations Seasonal allergies Well adult exam PAST SURGICAL HISTORY Procedure Laterality Date ABDOMINAL SURGERY HX APPENDECTOMY HX 2020 COLONOSCOPY 01/21/2021 EGD 10/22/2020 Active esophagitis with increased intraepithelial eosinophils,Inflamed gastric cardiac type mucosa with reactive epithelial changes and focal pancreatic heterotopia, Active esophagitis with increasedintraepithelial eosinophils, small mass lesion was found at the gastroesophageal junction. EGD 01/21/2021 PAST SURGICAL HISTORY OF 02/2012 left foot surgery PAST SURGICAL HISTORY OF 2009 repair tendon right hand PAST SURGICAL HISTORY OF 05/2018 Throat PAST SURGICAL HISTORY OF Right 12/05/2023 arthroscopic knee- meniscus repair SINUS SURGERY HX 2015 FAMILY HISTORY Problem Relation Age of Onset Cancer Father thyroid? Cancer Mother thyroid Hypertension Maternal Grandfather Cancer Maternal Grandmother thyroid Hypertension Maternal Grandmother Anesthesia Problems No Family History Social History Tobacco Use Smoking status: Never Smokeless tobacco: Never Vaping Use Vaping Use: Never used Substance Use Topics Alcohol use: Yes Alcohol/week: 5.0 standard drinks of alcohol Types: 3 Standard drinks or equivalent, 2 Cans of Beer (12oz) per week Comment: occasional alcohol use Drug use: No Prior to Admission medications as of 03/16/24 0577 Medication Sig Last Dose Taking dupilumab (DUPIXENT PEN) 300 mg/2 mL pen injection Inject 300 mg subcutaneously one time a week. Taking Yes oxyCODONE-acetaminophen (PERCOCET) 5-325 mg tablet Taking Yes diclofenac, EC, (VOLTAREN) 75 mg EC tablet Taking Yes sertraline (ZOLOFT) 50 mg tablet Take 1 tablet by mouth once daily. Taking Yes allopurinol (ZYLOPRIM) 100 mg tablet Take 1 tablet by mouth once daily. For gout. Taking Yes omeprazole (PRILOSEC) 40 mg capsule Take 1 capsule by mouth once daily. Taking Yes fluticasone (FLONASE) 50 mcg/actuation nasal spray Use 1 [place] in each nostril daily at bedtime. Taking Yes montelukast (SINGULAIR) 10 mg tablet Take 1 tablet by mouth daily at bedtime. Taking Yes amino acids (BCAA ORAL) Take by mouth once daily. Taking Yes albuterol HFA (PROAIR HFA) 90 mcg/actuation inhaler Inhale 2 Puffs as instructed every 4 hours as needed. Taking Yes cetirizine (ZYRTEC) 10 mg tablet Take 10 mg by mouth once daily. Taking Yes cyclobenzaprine (FLEXERIL) 10 mg tablet Take 1 tablet by mouth three times a day as needed for muscle spasm. Patient not taking: Reported on 03/16/2024 Not Taking traMADol (ULTRAM) 50 mg tablet Not Taking dupilumab 300 mg/2 mL subcutaneous syringe (DUPIXENT SYRINGE) Inject 2 mL subcutaneously one time aweek. dupilumab (DUPIXENT PEN) 300 mg/2 mL pen injection Inject 300 mg subcutaneously one time a week. budesonide (PULMICORT) 0.5 mg/2 mL nebulizer solution For eosinophilic esophagitis. Mix 4 respules with 5 packs of Splenda and swallow daily. Do not eat or drink for 30 minutes after Patient not taking: Reported on 12/02/2023 No medication comments found. ALLERGIES Allergen Reactions Bee Sting Swelling Local swelling and shortness of breath Dermabond [2-Octyl * Rash Objective PHYSICAL EXAM: (if completed, exam performed via video enabled technology) General: alert and oriented and healthy appearance. Skin: normal color, no rash or lesions. HEENT: Normocephalic, atraumatic. EOMI. No notable cervical lymph nodes. Cardiovascular: Unable to self palpate pulse, B/L UE capillary refill < 3 seconds.. Respiratory: Equal chest rise BL, No respiratory distress. Abdomen: Extremities: Neurological: normal cognition and motor skills. PAIN ASSESSMENT: VITALS: Ht 6' 1[pt rpt[ (1.85m) Wt 228 lb (103.4kg) BMI 30.09 kg/(m^2). Diagnostic tests reviewed for today's visit: Lab Value Units Date High Low HB No results within date range. HCT No results within date range. WBC No results within date range. PLT No results within date range. NA No results within date range. K No results within date range. GLUC No results within date range. BUN No results within date range. CREAT No results within date range. PTSEC No results within date range. INR No results within date range. APTT No results within date range. ALT No results within date range. AST No results within date range. TBILI No results within date range. TSH No results within date range. Lab Value Units Date High Low HCGQT No results within date range. UHCG No results within date range. HCG, BODY* No results within date range. Lab Value Units Date High Low ABORHD No results within date range. ABSCREEN No results within date range. Hemoglobin A1C (%) Date Value 04/26/2023 5.3 No results found for this or any previous visit (from the past 8760 hour(s)). No results found for this or any previous visit (from the past 38420 hour(s)). Instructions Given to Patient: Instructions located in the after visit summary. Patient given verbal and written preop instructions and voices comprehension and compliance. SIGNATURE: Lupe Sanchez PA-C PATIENT NAME: Carl Gross DATE: March 16, 2024 TIME: 3:09 PM PAGER/CONTACT #: [facility] Telephone encounter Note * Telephone Encounter - Winsome Piper RN - 03/13/2024 10:48 AM EDT Attempted to reach the patient at the contact number that they provided [phone] (home) . 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 Failure to have a responsible adult accompany the patient to their procedure appointment prevents the useof sedation or anesthesia for their procedure; and can result in cancellation of the procedure NPO instructions were reviewed. Clear liquids the day before the procedure, stop all liquids 4 hours before the procedure Instructions to contact their primary care provider regarding their medications and which medications to stop in preparation for their procedure Instructions to completely read and follow the written instructions that they recieved regarding their procedure. Number to call with questions or concerns [phone] Number to call to cancel their procedure [phone] Winsome Piper RN [facility]07-16-2024 Miscellaneous Notes* Telephone Encounter - Winsome Pipre RN - 03/13/2024 10:48 AM EDT Attempted to reach the patient at the contact number that they provided [phone] (home) . 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 Failure to have a responsible adult accompany the patient to their procedure appointment prevents the useof sedation or anesthesia for their procedure; and can result in cancellation of the procedure NPO instructions were reviewed. Clear liquids the day before the procedure, stop all liquids 4 hours before the procedure Instructions to contact their primary care provider regarding their medications and which medications to stop in preparation for their procedure Instructions to completely read and follow the written instructions that they recieved regarding their procedure. Number to call with questions or concerns [phone] Number to call to cancel their procedure [phone] Winsome Piper RN documented in [facility] encounterReg[facility] Telephone encounter Note * Telephone Encounter - Becca Trujillo RN - 03/07/2024 10:36 AM EDT Pt called and is notified of providers message and instructions. Pt voices understanding. Becca Trujillo RN [facility]07-10-2024 Miscellaneous Notes* Telephone Encounter - Becca Trujillo RN - 03/07/2024 10:36 AM EDT Pt called and is notified of providers message and instructions. Pt voices understanding. Becca Trujillo RN * Telephone Encounter - Tuan Puentes APRN.CNP - 03/07/2024 10:32 AM EDT If this is being recommended by orthopedics, they should be ordering the test so they can follow the results if necessary. Tuan Puentes APRN.KVNG * Telephone Encounter - Ana Cristina Marroquin RN - 03/07/2024 8:08 AM EDT Patient reports he was seen by an Orthopedic surgeon recently for knee issues he has been having and that provider recommended patient contact his PCP office and ask to have uric acid panel order placed and completed, to check for gout. Patient aware that Dr. Horton is out and asking if Shelly Broderick would be agreeable to placing this order for him? Please call patient with update, . Thank you. documented in this encounterReg[facility] Telephone encounter Note * Telephone Encounter - Tuan Puentes APRN.CNP - 03/07/2024 10:32 AM EDT If this is being recommended by orthopedics, they should be ordering the test so they can follow the results if necessary. Tuan Puentes APRN.KVNG [facility] Work Phone: 1(823) 655-234907-10-2024 Telephone encounter Note* Telephone Encounter - Ana Cristina Marroquin RN - 03/07/2024 8:08 AM EDT Patient reports he was seen by an Orthopedic surgeon recently for knee issues he has been having and that provider recommended patient contact his PCP office and ask to have uric acid panel order placed and completed, to check for gout. Patient aware that Dr. Horton is out and asking if Shellygamaliel Broderick would be agreeable to placing this order for him? Please call patient with update, . Thank you. [facility]07-05-2024 Telephone encounter Note* Telephone Encounter - Mady Betancur RN - 03/02/2024 3:12 PM EDT PA submitted via [facility] dupilumab (DUPIXENT PEN) 300 mg/2 mL pen injection 12 Each 3 02/14/2024 -- Sig: Inject 300 mg subcutaneously one time a week. Goel: [id number] [facility]07-05-2024 Miscellaneous Notes* Telephone Encounter - Mady Betancur RN - 03/02/2024 3:12 PM EDT PA submitted via [facility] dupilumab (DUPIXENT PEN) 300 mg/2 mL pen injection 12 Each 3 02/14/2024 -- Sig: Inject 300 mg subcutaneously one time a week. Goel: [id number] documented in this encounterRegency [facility]07-[facility]-2024 Telephone encounter Note * Telephone Encounter - Magnolia Arreguin MA - 02/29/2024 12:32 PM EDT Please see pt message regarding 3 month anxiety med follow up Magnolia Arreguin MA [facility]07-03-2024 Miscellaneous Notes* Telephone Encounter - Magnolia Arreguin MA - 02/29/2024 12:32 PM EDT Please see pt message regarding 3 month anxiety med follow up Magnolia Arreguin MA documented in this encounterReg[facility]06-[facility]-20[facility] Telephone encounter Note * Telephone Encounter - Robi Hendrickson MD - 02/22/2024 12:16 PM EDT I had ordered the pen: Medication dupilumab (DUPIXENT PEN) 300 mg/2 mL pen injection Order Information Date and Time Department Ordering/Authorizing 02/14/2024 4:13 PM [facility] Main A30 Robi Hendrickson MD Order Providers Prescribing Provider Encounter Provider Robi Hendrickson MD Gabbard, Scott L, MD Outpatient Medication Detail Disp Refills Start End dupilumab (DUPIXENT PEN) 300 mg/2 mL pen injection 12 Each 3 02/14/2024 -- Sig: Inject 300 mg subcutaneously one time a week. Sent to pharmacy as: dupilumab (DUPIXENT PEN) 300 mg/2 mL pen injection Class: Normal Route: SUBCUTANEOUS Order: [id number] E-Prescribing Status: Receipt confirmed by pharmacy (02/14/2024 4:13 PM EDT) Administration Details suggestion The administrations shown are only for this specific order and not for other orders for the same medication that may be in this encounter. No Administrations Recorded Order History Outpatient Date/Time Action Taken User Additional Information 02/14/24 1614 Robi Pandey MD Pharmacy E[place] [address] [address] [phone] [facility]06-26-2024 Miscellaneous Notes* Telephone Encounter - Robi Hendrickson MD - 02/22/2024 12:16 PM EDT I had ordered the pen: Medication dupilumab (DUPIXENT PEN) 300 mg/2 mL pen injection Order Information Date and Time Department Ordering/Authorizing 02/14/2024 4:13 PM [facility] A30 Robi Hendrickson MD Order Providers Prescribing Provider Encounter Provider Robi Hendrickson MD Gabbard, Scott L, MD Outpatient Medication Detail Disp Refills Start End dupilumab (DUPIXENT PEN) 300 mg/2 mL pen injection 12 Each 3 02/14/2024 -- Sig: Inject 300 mg subcutaneously one time a week. Sent to pharmacy as: dupilumab (DUPIXENT PEN) 300 mg/2 mL pen injection Class: Normal Route: SUBCUTANEOUS Order: [id number] E-Prescribing Status: Receipt confirmed by pharmacy (02/14/2024 4:13 PM EDT) Administration Details suggestion The administrations shown are only for this specific order and not for other orders for the same medication that may be in this encounter. No Administrations Recorded Order History Outpatient Date/Time Action Taken User Additional Information 02/14/24 161 Robi Pandey MD Pharmacy E- [place] [address] [address] [phone] * Telephone Encounter - Santana Iglesias - 02/22/2024 12:03 PM EDT [facility] Dr. Hendrickson intentionally wrote a prescription for the pre-filledDupixent or does he want the pt to have the Dupixent pen? Please call the number below to let [facility] know which way Dr. Hendrickson prefers the patient to have the med. [facility] P- [phone] documented in this encounterRegency [facility]06-26-2024 Telephone encounter Note * Telephone Encounter - Santana Iglesias - 02/22/2024 12:03 PM EDT [facility] called asking if Dr. Hendrickson intentionally wrote a prescription for the pre-filledDupixent or does he want the pt to have the Dupixent pen? Please call the number below to let [facility] know which way Dr. Hendrickson prefers the patient to have the med. [facility] P- [phone] [facility]-18[facility] Instructions* Patient Instructions* Robi Hendrickson MD - 02/14/2024 4:10 PM EDT Schedule EGD with Dr. Da Silva - you can call [phone] to schedule 2. Continue Dupilumab 300mcg every week 3. Low FODMAP (Fermentable Oligo-, Di- and Monosaccharides and Polyols) Diet What are FODMAPs? FODMAPs are a type of carbohydrate (or sugar ) found in certain foods. Some people may have troubledigesting FODMAPS, especially patients with irritable bowel syndrome, a slow moving gut, or other bowel disorders. This is because FODMAPS are not easily absorbed by the bowel. Symptoms include: abdominal discomfort, distention, bloating, fullness, nausea and/or pain after eating foods containing FODMAPS. To minimize symptoms, the best first approach is to eliminate the common foods that produce gas when acted upon by normal colonic bacteria, and this can be done by using the low FODMAP diet. The quickest way to maximize results using the FODMAP diet is to eliminate all high FODMAP foods asoutlined below. The table below lists the name of the carbohydrates that are considered FODPMAPs Fructans and Galactins Fructose Lactose Fructooligosaccharides Galactooligosaccharides Polyols Sorbitol Mannitol Xylitol Maltitol Fructose* and Glucose Fructose is a naturally occurring sugar found in fruit, vegetables, and honey. Fructose intolerancecan occur in people with irritable bowel syndrome and other bowel disorders. Fruits and fruit juices with higher levels of fructose may cause gas, bloating, abdominal cramping, and diarrhea. Glucose is also a naturally occurring sugar. Fruits and juices with more glucose (and less fructose) may be more intestine friendly . The tables in the following section list which fruits, juices andother foods may be better choices for patients with FODMAP intolerance. High Fructose [place] Syrup (HFCS) * HFCS is an ingredient in many processed foods. HFCS is made up of almost half glucose and half fructose. HFCS may be easily digested by some patients. Therefore, items with HFCS, such as soft drinks,may be tolerated well if they are limited to 12 oz per day and are taken with a meal. * In some patients, even a small amount of processed fruit juice or HFCS may cause intestinal discomfort and/or malabsorption. Sorbitol Sorbitol (or sorbose) is a sugar alcohol that is found naturally in fruits and fruit juices .It is used as an artificial sweetener. It can also be found in many diet foods or diabetic foods (such as diet soft drinks, sugarless gum, sugar-free jelly/jam, and other sugar-free foods). It may also be found in liquid medications. Sorbitol often creates similar symptoms as fructose - especially when fructose and sorbitol are ingested together. General Guidelines -Eliminate products with ingredients that list fructose, crystalline fructose (not HFCS), honey, and sorbitol on the label. -Avoid sugar alcohols. These include sorbitol, isomalt, lactitol, maltitol, mannitol, xylitol, erythrytol, and lactatol. These are often found in diet or diabetic foods such as diet drinks, ice cream, candy, processed goods, etc. -Limit drinks with HFCS. -Check your medications for fructose and sorbitol. They are not always listed on the label, so check with your pharmacist or the publishing agent. -Keep in mind the amount of fructose found in 2 apples (or 2 oz of honey) is the same as the amountof fructose in 1 can of soda (note: apples have other nutritional benefits). -Follow guidelines below to choose fruits, vegetables, and other foods that are Intestine Friendly Fruits: Serving size is cup Limit to 1 to 2 servings per day. Fresh or fresh frozen fruit may be better tolerated than canned fruit, because canned fruit often contains high fructose corn syrup. Keep in mind tolerance may depend on the amount you eat at one time. Limit concentrated sources of fruit--such as dried fruit and fruit juices Avoid eating large amounts of any fruit. The foods listed as Foods to Avoid should not be eaten because of their high FODMAP content. *Possible gas forming foods that may need to be avoided Intestine friendly Foods to Avoid if FODMAP Intolerant Questionable Foods or Foods to Limit Bananas*, blackberries, blueberry, grapefruit, honeydew, kiwifruit, grapes, mikki, limes, mandarinorange, melons (except watermelon), oranges, papaya, passion fruit, pineapples, raspberries, rhubarb, strawberries, tangelos Apples, apple cider, apple juice, applesauce, apricots, cherries, dates, lychee, dina, peaches, pears, pear juice, plums, prunes, watermelon Other fruit juices or drinks, sugar-free jam/jelly, dried fruit, canned fruit in heavy syrup, otherfruits Vegetables: Serving size is cup (most vegetables) or 1 cup of leafy green vegetables (cooked or uncooked) Limit to 1 to 3 servings per day. Cooked vegetables may be tolerated best as cooking causes a loss of free sugars. Keep in mind tolerance may depend on the amount you eat at one time. Intestine friendly Foods to Avoid if FODMAP Intolerant Questionable Foods or Foods to Limit Bamboo shoots, bok sarahy, carrots, celery, cucumber*, eggplant*, green beans*, peppers*, leafy greens, parsnip, pumpkin, spinach, sweet potatoes, white potatoes, zucchini, scallions, other root vegetables Artichokes, asparagus, some beans (baked beans, chickpeas, kidney beans, lentils) beetroot, broccoli, [place] sprouts, cabbage, cauliflower, fennel, garlic, sugar snap peas, leeks, soy products, okra, onions, peas, shallots Avocado, corn, mushrooms, tomatoes, other beans Other Foods and Food Additives: Intestine friendly Foods to Avoid if FODMAP Intolerant Questionable Foods or Foods to Limit All meats All fats Yogurt and hard cheeses Eggs Aspartame (Equal and Nutrasweet ) Saccharin (Sweet n Low ) Sucrose (table sugar) Glucose Maple syrup Walnuts Almonds Pecans Cashews Peanuts Butter Mayonnaise Peanut Butter [place] Oil Plain Rice Cakes Quinoa Vanilla Extract [place] tortillas Ground flaxseed [place] and rye products (rye bread and crackers), wheat and wheat products (cous- cous, cream of wheat,wheat crackers, pasta, wheat bran, etc.) Honey Flavorings with fructose or sorbitol Desserts (ice cream, candy, cookies, bars, popsicles) sweetened with fructose or sorbitol Cereal or other processed foods with sorbitol or fructose on the label [place] and port wine Sweeteners such as sorbitol, mannitol, xylitol, maltitol, and isomalt used in sugar-free gum, candies and mints Limit products with high fructose corn syrup if symptoms still continue If you experience symptoms with lactose, try limiting milk, cottage cheese, and other lactose-containing foods. Medications: Many liquid medications and some personal care items may contain lactose or the sugar alcohols (sorbitol, mannitol, xylitol, maltitol, isomalt). Examples include: liquid pain relievers (including liquid gel caps), cough medicines, and cough drops. If possible, choose a tablet or caplet form insteadof liquid medication. If you have eliminated FODMAPs from your diet and are still having symptoms, talk to your pharmacist to see if any of your medications contain lactose or sugar alcohol 4. Return to clinic in 6-12 months. You can call [phone] about 2 months prior to your expectedvisit documented in this encounterReg[facility] History of Present illness Narrative* Robi Hendrickson MD - 02/14/2024 4:04 PM EDT VIRTUAL VISIT FOLLOW UP I have communicated my name and active licensure. The patient's identity and physical location wereverified at the time of this visit. Either the patient or their legal medicare sales representative has been informed of the risks and benefits of -- and alternatives to -- treatment through a remote evaluation andconsents to proceed with the evaluation remotely. I had a virtual visit with Mr. Gross today for follow up of eosinophilic esophagitis. UPDATED HISTORY: --Has been on dupilumab for ~10 weeks --I feel like it is working --No issues with worsening joint pains or rashes since starting dupilumab PAST MEDICAL HISTORY Diagnosis Date Acute right-sided back pain with sciatica Arthritis Asthma Awareness under anesthesia Dysthymia 02/03/2022 Eosinophilic esophagitis THA (generalized anxiety disorder) Generalized anxiety disorder Obstructive sleep apnea Palpitations Seasonal allergies Well adult exam PAST SURGICAL HISTORY Procedure Laterality Date ABDOMINAL SURGERY HX APPENDECTOMY HX 2020 COLONOSCOPY 01/21/2021 EGD 10/22/2020 Active esophagitis with increased intraepithelial eosinophils,Inflamed gastric cardiac type mucosa with reactive epithelial changes and focal pancreatic heterotopia, Active esophagitis with increasedintraepithelial eosinophils, small mass lesion was found at the gastroesophageal junction. EGD 01/21/2021 PAST SURGICAL HISTORY OF 02/2012 left foot surgery PAST SURGICAL HISTORY OF 2009 repair tendon right hand PAST SURGICAL HISTORY OF 05/2018 Throat PAST SURGICAL HISTORY OF Right 12/05/2023 arthroscopic knee- meniscus repair SINUS SURGERY HX 2015 FAMILY HISTORY Problem Relation Age of Onset Cancer Mother thyroid Cancer Father thyroid? Cancer Maternal Grandmother thyroid Hypertension Maternal Grandmother Hypertension Maternal Grandfather Social History Tobacco Use Smoking status: Never Smokeless tobacco: Never Vaping Use Vaping Use: Never used Substance Use Topics Alcohol use: Yes Alcohol/week: 5.0 standard drinks of alcohol Types: 3 Standard drinks or equivalent, 2 Cans of Beer (12oz) per week Comment: occasional alcohol use Drug use: No Current Outpatient Medications Medication Sig Dispense Refill cyclobenzaprine (FLEXERIL) 10 mg tablet Take 1 tablet by mouth three times a day as needed for muscle spasm. 30 tablet 0 traMADol (ULTRAM) 50 mg tablet oxyCODONE-acetaminophen (PERCOCET) 5-325 mg tablet diclofenac, EC, (VOLTAREN) 75 mg EC tablet sertraline (ZOLOFT) 50 mg tablet Take 1 tablet by mouth once daily. 90 tablet 0 dupilumab 300 mg/2 mL subcutaneous syringe (DUPIXENT SYRINGE) Inject 2 mL subcutaneously one time aweek. 12 Each 3 dupilumab (DUPIXENT PEN) 300 mg/2 mL pen injection Inject 300 mg subcutaneously one time a week. 12Each 3 allopurinol (ZYLOPRIM) 100 mg tablet Take 1 tablet by mouth once daily. For gout. 30 tablet 11 budesonide (PULMICORT) 0.5 mg/2 mL nebulizer solution For eosinophilic esophagitis. Mix 4 respules with 5 packs of Splenda and swallow daily. Do not eat or drink for 30 minutes after (Patient not taking: Reported on 12/02/2023) 720 mL 3 omeprazole (PRILOSEC) 40 mg capsule Take 1 capsule by mouth once daily. 30 capsule 3 fluticasone (FLONASE) 50 mcg/actuation nasal spray Use 1 [place] in each nostril daily at bedtime. 1 Each 0 montelukast (SINGULAIR) 10 mg tablet Take 1 tablet by mouth daily at bedtime. 90 tablet 3 amino acids (BCAA ORAL) Take by mouth once daily. albuterol HFA (PROAIR HFA) 90 mcg/actuation inhaler Inhale 2 Puffs as instructed every 4 hours as needed. 18 g 1 cetirizine (ZYRTEC) 10 mg tablet Take 10 mg by mouth once daily. 0 No current facility-administered medications for this visit. ALLERGIES Allergen Reactions Bee Sting Swelling Local swelling and shortness of breath Dermabond [2-Octyl * Rash REVIEW OF SYSTEMS: PAIN ASSESSMENT: Negative for pain, history of chronic pain, or current treatment for a chronic pain condition. GENERAL: No weight loss, malaise or fevers RESPIRATORY: Negative for cough, hemoptysis, wheezing, COPD, dyspnea or shortness of breath CARDIOVASCULAR: Negative for chest pain, leg swelling, hypertension, CHF or palpitations GI: PHYSICAL FINDINGS OF NOTE: General - Normal, healthy, cooperative, in no acute distress Able to interact verbally by video conference Psych - ORIENTATION: normal to time place, person and situation Mood/Affect: AFFECT AND MOOD: Normal Head/Neuro - Normal size and shape Facial appearance normal Pulmonary - respiratory effort normal Cardiovascular - patient describes extremities normal, warm, no cyanosis,no clubbing, and no edema Abdominal - Not performed Skin - abnormal lesions not visualized Motor - patient seen sitting with Normal appearing strength and coordination REVIEWED ITEMS EGD 2022 (on omeprazole and budesonide): The examined duodenum was normal. The entire examined stomach was normal. Mucosal changes including ringed esophagus were found in the entire esophagus. Esophageal findings were graded using the Eosinophilic Esophagitis Endoscopic Reference Score (EoE-EREFS) as: Edema Grade 0 Normal (distinct vascular markings), Rings Grade 2 Moderate (distinct rings that do not occlude passage of diagnostic 8-10 mm endoscope), Exudates Grade 0 None (no white lesions seen), Furrows Grade 1 Present (vertical lines with or without visible depth) and Stricture present. Biopsies were obtained from the proximal and distal esophagus with cold forceps for histology of suspected eosinophilic esophagitis. A guidewire was placed and the scope was withdrawn. Dilation was performed in the entire esophagus with a Savary dilator with mild resistance at 16 and moderate at 17 mm. A. Esophagus, biopsy: - Reactive squamous mucosa with increased intraepithelial eosinophils (focally up to 60/hpf). B. Esophagus, proximal, biopsy: - Reactive squamous mucosa with mild increase of intraepithelial eosinophils (focally up to 15/hpf). IMPRESSION Assessment: Pleasant 39M with eosinophilic esophagitis, with persistent elevated eosinophils despite PPI, topical corticosteroid, and diet. He has recurrent strictures despite the above therapies Now on dupilumab and tolerating well. Will plan for EGD with biopsies and further dilation PLAN --Continue Dupilumab 300mg SC weekly --EGD with esophageal biopsies and dilation with 20mm Savary --LowFODMAP diet for bloating --RTC in 6 months Robi Hendrickson MD documented in this encounterReg[facility]04-[facility]24 Nurse Note* Carrillo Delgado RN - 12/20/2023 8:[address] Martinez spoke to patient Carl prior to being discharged from unit [facility] Nurse Note* Carrillo Delgado RN - 12/20/2023 8:[address] Martinez spoke to patient Carl prior to being discharged from unit * Carolyn Figueroa RN - 12/20/2023 7:00 AM EDT PRE OP LEARNING ASSESSMENT PROCEDURE/SURGERY: GI PROCEDURES: EGD READINESS TO LEARN COGNITIVE ABILITY: Alert and oriented MOTIVATION TO LEARN: Eager Interested FAMILY SUPPORT: High - Very involved in pt care PATIENT LEARNS BEST BY: Individual Instruction Written Instruction - Hand-outs Verbal Instruction FACTORS AFFECTING LEARNING: None PHYSICAL LIMITATIONS AFFECTING LEARNING: None Electronically Signed By: Carolyn Figueroa RN In Department: GASTROENTEROLOGY documented in this encounterRegency Hospital [facility]04-23-2024 NoteQ3 Patient Name: Carl Gross Procedure Date: 12/20/2023 7:26 AM Date of : 1985 Admit Type: Outpatient Age: 38 Gender: Male Note Status: Finalized Attending MD: Isai Martinez MD, [id number] Procedure: Upper GI endoscopy Indications: Dysphagia Providers: Isai Martinez MD Patient Profile: This is a 38 year old male. Refer to note in patient chart for documentation of history and physical. Referring Physician: Robi Hendrickson MD (Referring MD) Medicines: Monitored Anesthesia Care Complications: No immediate complications. Requesting Provider: Procedure: Pre-Anesthesia Assessment: - Prior to the procedure, a History and Physical was performed, and patient medications, allergies and sensitivities were reviewed. The patient's tolerance of previous anesthesia was reviewed. - ASA Grade Assessment: II - A patient with mild systemic disease. After obtaining informed consent, the endoscope was passed under direct vision. Throughout the procedure, the patient's blood pressure, pulse, and oxygen saturations were monitored continuously. The Endoscope was introduced through the mouth, and advanced to the second part of duodenum. The upper GI endoscopy was accomplished without difficulty. The patient tolerated the procedure well. Moderate Sedation: MAC anesthesia was administered by the anesthesia team. Findings: Mucosal changes including ringed esophagus and stenosis were found in the entire esophagus. A guidewire was placed and the scope was withdrawn. Serial careful dilation was performed with a Savary dilator with moderate resistance at 17 mm and then to 19 mm with also moderate resistance. The dilation site was examined following endoscope reinsertion and showed moderate mucosal disruption, complete resolution of luminal narrowing and no bleeding, mucosal tear or perforation. The entire examined stomach was normal. The first portion of the duodenum, second portion of the duodenum and examined duodenum were normal. Impression: - Esophageal mucosal changes secondary to eosinophilic esophagitis. Dilated. - Normal stomach. - Normal first portion of the duodenum, second portion of the duodenum and examined duodenum. - No specimens collected. Estimated Blood Loss: Estimated blood loss: none. Recommendation: - Discharge patient to home (ambulatory). - Clear liquid diet today. Then advance to full liquids this evening and previous diet tomorrow. - Continue present medications. - Return to referring physician as previously scheduled. - Patient has a contact number available for emergencies. The signs and symptoms of potential delayed complications were discussed with the patient. Return to normal activities tomorrow. Written discharge instructions were provided to the patient. Procedure Code(s): --- Professional --- 40376, Esophagogastroduodenoscopy, flexible, transoral; with insertion of guide wire followed by passage of dilator(s) through esophagus over guide wire Diagnosis Code(s): --- Professional --- K20.0, Eosinophilic esophagitis R13.10, Dysphagia, unspecified CPT copyright 2020 [employer]. All rights reserved. Attending Participation: I personally performed the entire procedure. Scope In: 7:38:40 AM Scope Out: 7:42:[address] Isai Martinez MD 12/20/2023 7:45:57 AM This report has been signed electronically by Isai Martinez MD Number of Addenda: 0 Note Initiated On: 12/20/2023 7:26 [id number] Nurse Note* Carolyn Figueroa RN - 12/20/2023 7:00 AM EDT PRE OP LEARNING ASSESSMENT PROCEDURE/SURGERY: GI PROCEDURES: EGD READINESS TO LEARN COGNITIVE ABILITY: Alert and oriented MOTIVATION TO LEARN: Eager Interested FAMILY SUPPORT: High - Very involved in pt care PATIENT LEARNS BEST BY: Individual Instruction Written Instruction - Hand-outs Verbal Instruction FACTORS AFFECTING LEARNING: None PHYSICAL LIMITATIONS AFFECTING LEARNING: None Electronically Signed By: Carolyn Figueroa RN In Department: GASTROENTEROLOGY [facility] Miscellaneous Notes* Telephone Encounter - Sakina Drake LPN - 12/16/2023 7:07 AM EDT [facility]-12/02/23 Labs-04/26/23 NOV-03/07/24 Sakina Drake LPN Patient comment: I just had knee surgery. I am having muscle cramps bad in the operated leg which is restricted by my brace. I just finished last few I had. documented in this encounterRegency [facility]04-16-2024 Instructions* Patient Instructions* Keshia Magana APRN.EMERY GRINDER - 12/13/2023 3:45 PM EDT PATIENT PREOPERATIVE INSTRUCTIONS Loraine Da Silva MD has scheduled you for your procedure at this surgery center: [facility] Scheduling Office: [phone] --[address] [place] [address]. Please read below carefully for your personalized instructions. Dietary Restrictions: - No solid food after midnight. - You may have 12 ounces of clear liquids (water, clear juices such as apple juice or gatorade, carbonated beverages, clear tea, black coffee -NO CREAM OR SUGAR ) until 4 hours before scheduled arrival at facility. Medications: Unless instructed differently below, stay on all of your prescription medications until your surgery. Approved medications to take the morning of surgery with a sip of water: allopurinol (ZYLOPRIM) , omeprazole (PRILOSEC) , Albuterol Inhaler If you start any new medications after today's visit, please contact the surgeon's office. Blood Thinning Medications: - Stop NSAIDS (Ibuprofen, Advil, Aleve, Motrin, Celebrex, Mobic, etc.) 7 days before surgery, as directed by your surgeon. - Stop Aspirin 7 days before surgery, as directed by your surgeon. - Stop Vitamin E, ALL multi-vitamins, herbals and dietary supplements 7 days before surgery. - You may take Tylenol (Acetaminophen) or any of your pain medications that do not contain aspirin or NSAIDS as needed. TraMADol (ULTRAM) and Percocet [place] Important Reminders: - If you are prescribed inhalers for breathing, continue using them. - Candy, mints, and tobacco products are NOT permitted the morning of surgery. - Hearing aids, dentures and glasses may be worn the morning of surgery. - NO jewelry, body piercings, makeup, hairpins or contacts are to be worn the day of surgery. If you develop symptoms such as a fever, cold, or flu, or have other changes to your health within TWO DAYS of scheduled surgery or the morning of surgery, please contact the surgery center above. Personal Belongings: -Please have photo ID and insurance cards. -If you do not have a copy of advance directives on file with us, please bring a copy with you on the day of surgery. - Leave ALL valuables and money at home or with family members. For Outpatient Procedures: - YOU MUST HAVE A RESPONSIBLE STRATEGY EXECUTION CONSULTANT TAKE YOU HOME. A PERMIT TECHNICIAN OR MOTORCYCLE POLICE CANNOT BE MADE A RESPONSIBLE STRATEGY EXECUTION CONSULTANT. - We recommend that a responsible person stays with you overnight to take care of you. - You cannot stay in a hotel alone after outpatient surgery. You will not be permitted to have yoursurgery, if you do not have someone to take care of you. Arrival Time for Surgery: - To obtain your arrival time for surgery, call your physician's office the day before your surgery. - If your surgery is scheduled for Tuesday, call the Tuesday before. Your surgeon s rig supervisor will tell you what time to call the office. - If you have not reached the departmental rig supervisor by 5 P.M., call [phone] after 5 P.M. the day before your surgery. Please be aware that emergency situations arise, which may delay or change your surgical time. If this happens, we will notify you as soon as possible and regret any inconvenience. If you already have an Advance Directive, please fax a copy to [phone] or email to for it to be added to your chart. If you do not have an Advance Directive, you can find the appropriate form and more information at [email or web address]. We recommend that youcomplete the Advance Directive form found on the website and bring it with you the day of your surgery. It can be witnessed and scanned into your chart that day. documented in this encounterRegency [facility]04-16-2024 Miscellaneous Notes* Telephone Encounter - Lupe Caldwell RN - 12/13/2023 3:24 PM EDT Attempted to reach the patient at the contact number that they provided [phone] (home). Unableto speak with patient so without identifying the patient the following information was left on their voice mail: Date of procedure, location and report time A message was left informing the patient/patient medicare sales representative they must have a responsible adult accompany them to their procedure; and remain in the endoscopy area until they are discharged. Failure to have a responsible adult accompany the patient to their procedure appointment prevents the useof sedation or anesthesia for their procedure; and can result in cancellation of the procedure NPO instructions were reviewed. Instructions to contact their primary care provider regarding their medications and which medications to stop in preparation for their procedure Number to call with questions or concerns [phone] Mimi Hess RN BSN documented in this encounterReg[facility]04-16-2024 History and physical note * Keshia Magana APRN.KVNG - 12/13/2023 3:10 PM EDT PREANESTHESIA CONSULT CLINIC This is a virtual visit. It required patient-provider interaction for the medical decision making as documented below. Patient has been identified by name and date of : Yes Reason for call: PACC visit Accompanied by: Self This is a virtual visit using MyChart Zoom Video Visit. It required patient- provider interaction for the medical decision making as documented below. I have communicated my name and active licensure. The patient's identity and physical location wereverified at the time of this visit. Either the patient or their legal medicare sales representative has been informed of the risks and benefits of and alternatives to treatment through a remote evaluation and consents to proceed with the evaluation remotely. Patient name: Carl Gross Scheduled Surgery: EGD CHIEF COMPLAINT: Patient presents with: Pre-Op Visit HPI: This is a 38 year old male who presents with. Eosinophilic esophagitis experiencing difficulty swallowing that is progressively worsening over the past couple weeks; he denies any choking or aspiration. Prior EGD interventions every 4-6 months. He will be starting Dupixent SQ this week. Pt. is recommended for above planned procedure with dilation only. Pt. is s/p right knee meniscus repair 12/05/2023, he takes diclofenac for inflammation, Tramadol and Percocet for pain prn; Surgeon is aware. PAST MEDICAL HISTORY Diagnosis Date Acute right-sided back pain with sciatica Arthritis Asthma Awareness under anesthesia Dysthymia 02/03/2022 Eosinophilic esophagitis THA (generalized anxiety disorder) Generalized anxiety disorder Obstructive sleep apnea Palpitations Seasonal allergies Well adult exam PAST SURGICAL HISTORY Procedure Laterality Date ABDOMINAL SURGERY HX APPENDECTOMY HX 2020 COLONOSCOPY 01/21/2021 EGD 10/22/2020 Active esophagitis with increased intraepithelial eosinophils,Inflamed gastric cardiac type mucosa with reactive epithelial changes and focal pancreatic heterotopia, Active esophagitis with increasedintraepithelial eosinophils, small mass lesion was found at the gastroesophageal junction. EGD 01/21/2021 PAST SURGICAL HISTORY OF 02/2012 left foot surgery PAST SURGICAL HISTORY OF 2009 repair tendon right hand PAST SURGICAL HISTORY OF 05/2018 Throat PAST SURGICAL HISTORY OF Right 12/05/2023 arthroscopic knee- meniscus repair SINUS SURGERY HX 2016 FAMILY HISTORY Problem Relation Age of Onset Cancer Mother thyroid Cancer Father thyroid? Cancer Maternal Grandmother thyroid Hypertension Maternal Grandmother Hypertension Maternal Grandfather Social History: Social History Tobacco Use Smoking status: Never Smokeless tobacco: Never Vaping Use Vaping Use: Never used Substance Use Topics Alcohol use: Yes Alcohol/week: 5.0 standard drinks of alcohol Types: 3 Standard drinks or equivalent, 2 Cans of Beer (12oz) per week Comment: occasional alcohol use Drug use: No MEDICATIONS: Current Inpatient Medications Current Outpatient Medications Medication Sig traMADol (ULTRAM) 50 mg tablet oxyCODONE-acetaminophen (PERCOCET) 5-325 mg tablet diclofenac, EC, (VOLTAREN) 75 mg EC tablet sertraline (ZOLOFT) 50 mg tablet Take 1 tablet by mouth once daily. dupilumab 300 mg/2 mL subcutaneous syringe (DUPIXENT SYRINGE) Inject 2 mL subcutaneously one time aweek. allopurinol (ZYLOPRIM) 100 mg tablet Take 1 tablet by mouth once daily. For gout. omeprazole (PRILOSEC) 40 mg capsule Take 1 capsule by mouth once daily. fluticasone (FLONASE) 50 mcg/actuation nasal spray Use 1 [place] in each nostril daily at bedtime. montelukast (SINGULAIR) 10 mg tablet Take 1 tablet by mouth daily at bedtime. amino acids (BCAA ORAL) Take by mouth once daily. albuterol HFA (PROAIR HFA) 90 mcg/actuation inhaler Inhale 2 Puffs as instructed every 4 hours as needed. cetirizine (ZYRTEC) 10 mg tablet Take 10 mg by mouth once daily. dupilumab (DUPIXENT PEN) 300 mg/2 mL pen injection Inject 300 mg subcutaneously one time a week. budesonide (PULMICORT) 0.5 mg/2 mL nebulizer solution For eosinophilic esophagitis. Mix 4 respules with 5 packs of Splenda and swallow daily. Do not eat or drink for 30 minutes after (Patient not taking: Reported on 12/02/2023) cyclobenzaprine (FLEXERIL) 10 mg tablet Take 1 tablet by mouth three times daily as needed for muscle spasm. (Patient not taking: Reported on 08/01/2023) No current facility-administered medications for this visit. ALLERGIES: ALLERGIES Allergen Reactions Bee Sting Swelling Local swelling and shortness of breath Dermabond [2-Octyl * Rash REVIEW OF SYSTEMS: PAIN ASSESSMENT: Pain Pain Level: 5 Pain Location: (right knee s/p surery 12/05/2023) Description: (ache) Frequency: Intermittent General: No weight loss, malaise or fevers. Neuro: No history of TIA's, stroke, [employer] tumor, impaired sensorium, hemiplegia, paraplegia or quadraplegia. No neurological symptoms or problems. Respiratory: No history of current cough or dyspnea, or pneumonia in the past 6 weeks. (+) asthma, BOB resolved with weight loss Cardiovascular: No history of HTN requiring medication, no history of angina, CHF, CO, cardiac surgery or stents. Denies rest pain, gangrene or revascularization/amputation for PVD. No history of cardiovascular symptoms or problems. GI: See HPI : No history of dysuria, frequency or incontinence,, stones or chronic kidney disease Endocrine: No history of diabetes. Has not taken steroids within the past 30 days. No history of endocrinological symptoms or problems. Hematology: No history of bleeding or clotting disorder. Pt is not taking anti- coagulation or platelet medications. No history of hematological symptoms or problems. Oncology: No history of CA metastasis, chemo within 30 days, or radiotherapy within 90 days. Has not lost 10% of body wt in 6 months. No history of oncological symptoms or problems. Psych: Anxiety Musculoskeletal: s/p right knee surgery Skin: Negative for lesions, rash and itching. PHYSICAL EXAM: VITAL SIGNS: Ht 6' 1[Pt. reported[ (1.85m) Wt 228 lb (103.4kg) BMI 30.09 kg/(m^2). GENERAL: alert and appropriate, in no distress, well-hydrated, well nourished, and happy, smiling, interactive SKIN: no rash noted HEAD: normocephalic, no abnormality or lesion noted EYES: no injection and visual acuity is grossly normal OROPHARYNX: moist mucus membranes NECK: full ROM, no cervical LNs noted Per Pt palpation RESPIRATORY: breathing non-labored CHEST: equal chest rise with normal respiratory effort HEART: Unable to find pulse, Color WNL ABDOMEN: soft and non-tender and no rebound/guarding/rigidity Per Pt palpation EXTREMITIES: REID NEUROLOGIC: no obvious deficit Diagnostic tests reviewed for today's visit: Hemoglobin (g/dL) Date Value 04/26/2023 15.2 06/17/2021 15.3 Hematocrit (%) Date Value 04/26/2023 46.0 06/17/2021 47.8 WBC (k/uL) Date Value 04/26/2023 6.70 06/17/2021 6.97 Glucose (mg/dL) Date Value 04/26/2023 91 06/17/2021 91 Potassium (mmol/L) Date Value 04/26/2023 4.0 06/17/2021 4.1 Sodium (mmol/L) Date Value 04/26/2023 139 06/17/2021 140 Chloride (mmol/L) Date Value 04/26/2023 102 06/17/2021 102 CO2 (mmol/L) Date Value 04/26/2023 26 06/17/2021 24 Creatinine (mg/dL) Date Value 04/26/2023 0.99 06/17/2021 0.90 BUN (mg/dL) Date Value 04/26/2023 12 06/17/2021 15 Anion Gap (mmol/L) Date Value 04/26/2023 11 06/17/2021 14 Calcium (mg/dL) Date Value 06/17/2021 9.7 Calcium, Total (mg/dL) Date Value 04/26/2023 10.0 Lab Value Units Date High Low HB No results within date range. HCT No results within date range. WBC No results within date range. PLT No results within date range. NA No results within date range. K No results within date range. GLUC No results within date range. BUN No results within date range. CREAT No results within date range. PTSEC No results within date range. INR No results within date range. APTT No results within date range. ALT No results within date range. AST No results within date range. TBILI No results within date range. TSH No results within date range. Lab Value Units Date High Low HCGQT No results within date range. UHCG No results within date range. HCG, BODY* No results within date range. Lab Value Units Date High Low ABORHD No results within date range. ABSCREEN No results within date range. Hemoglobin A1C (%) Date Value 04/26/2023 5.3 EKG: View EKG Wave Form [ID [id number]] Procedure Date : Jul 22 2012 11:34 Edit Date : Jul 25 2012 09:49 Diagnosis:NORMAL SINUS RHYTHM NORMAL ECG Ventricular Rate : 65 BPM Atrial Rate : 65 BPM Assessment/Plan Asthma Assessment: montelukast (SINGULAIR) , Albuterol Inhaler for wheezing prn Denies recent exacerbation Follows with PCP GERD without esophagitis Assessment: Pt. reports reflux symptoms controlled with medication see HPI Chronic gout of multiple sites Assessment: Controlled with allopurinol (ZYLOPRIM) Follows with PCP THA (generalized anxiety disorder) Assessment: situational anxiety under care of PCP(12/02/2023 Office Visit) managed with sertraline (ZOLOFT) , ALPRAZolam (XANAX) prn METS: ANESTHESIA FINDINGS: Intubation History: No history of difficult intubation Significant Anesthesia Considerations: Pt. reports awareness with first surgery in 2009. He has nothad any other adverse anesthetic events with other surgeries since. Airway Exam: General: Normal appearance, mustache/gamez Mallampati Score is CLASS II ULBT: Class II - Lower incisors can bite the upper lip below the paula line Neck: Normal appearance and function Mouth: Normal tongue size and Mouth opening greater than 2 finger breaths Dentition: Partial ( upper) and Caps/crowns Airway History: No abnormal airway history STOP BANG Score: Hx of BOB, reports resolved with weight loss PLAN This patient is optimally prepared for surgery. CONSULTS: Patient does not require consults for optimization at this time. The Following Tests/Procedures Have Been Initiated: Labs not indicated per [facility] protocol, EKG not indicated per [facility] protocol Planned Anesthetic: Per anesthesia choice Instructions Given to Patient: Patient given verbal instructions and voices comprehension and compliance. Copy sent electronically via My Chart, email, or mobile device. SIGNATURE: Keshia Magana APRN.CNP PATIENT NAME: Carl Gross DATE: 12/13/2023 TIME: 3:12 PM PAGER/CONTACT #: documented in this encounterReg[facility]24 Miscellaneous Notes* Telephone Encounter - Svetlana Espinoza PA-C - 12/09/2023 3:41 PM EDT Good afternoon, I called this patient during their scheduled mychart zoom virtual P[facility] visit. Patient did not answer phone. I left a message offering assistance signing in. Patient did not return my call and did notsign into visit. Forwarding this encounter to schedulers. Patient will need his P[facility] visit rescheduled. Thank you, Svetlana Espinoza PA-C documented in this encounterRegency [facility]04-05-2024 History of Present illness Narrative* Shelly Broderick APRN.EMERY GRINDER - 12/02/2023 10:45 AM EDT Chief Complaint Patient presents with: anxirty: Pt states always has some anxiety but can manage very well since surgery coming up has noteen able to . Its not the surgery he is anxious about its the recovery. HPI Carl Gross is a 38 year old male who presents here today for Above Complaints. Carl is an established patient of Dr. Horton, Do and myself. Concerns today... Anxiety --- Prescribed buspar 5 mg BID as needed and zoloft 25 mg daily at bedtime. Pt taking zoloft daily. Rarely ever needs buspar. Normally anxiety is very well managed with this regimen. However, pt is scheduled for mensicus repair surgery on R knee on Tuesday and this is causing him a lot of anxiety. Pt very worried about recovery period of 3-6 months. He is used to being very active and going to the gymdaily. He is worried about being off work x 2-3 months. He is also very anxious about everything falling on his while he is recovering, including yard work due to summertime. Pt had anxiety attack related to upcoming surgery yesterday and took 2 Buspar tablets (10 mg total) and reports feeling very dizzy and lightheaded and no anxiety improvement. Pt reports taking buspar prior to wedding and it worked well then but scared to take any more of this d/t symptoms. BP slightly elevated. No hx of HTN or elevated BP in the past. Last 14 Encounter BP Readings: Date: BP: 12/02/2023 138/74 10/11/2023 122/80 08/02/2023 128/80 08/01/2023 134/68 07/19/2023 124/71 07/19/2023 120/66 07/04/2023 132/82 06/02/2023 110/70 04/26/2023 110/80 03/29/2023 127/62 03/29/2023 132/62 02/02/2023 114/84 01/31/2023 128/82 12/13/2022 140/84 Past medical history, appointments, medications, allergies reviewed. Previous Medical History PAST MEDICAL HISTORY Diagnosis Date Acute right-sided back pain with sciatica Arthritis Asthma Awareness under anesthesia Dysthymia 02/03/2022 Eosinophilic esophagitis THA (generalized anxiety disorder) Generalized anxiety disorder Obstructive sleep apnea Palpitations Seasonal allergies Well adult exam Previous Surgical History PAST SURGICAL HISTORY Procedure Laterality Date ABDOMINAL SURGERY HX APPENDECTOMY HX 2020 COLONOSCOPY 01/21/2021 EGD 10/22/2020 Active esophagitis with increased intraepithelial eosinophils,Inflamed gastric cardiac type mucosa with reactive epithelial changes and focal pancreatic heterotopia, Active esophagitis with increasedintraepithelial eosinophils, small mass lesion was found at the gastroesophageal junction. EGD 01/21/2021 PAST SURGICAL HISTORY OF 02/2012 left foot surgery PAST SURGICAL HISTORY OF 2009 repair tendon right hand PAST SURGICAL HISTORY OF 05/2018 Throat SINUS SURGERY HX 2015 Family History FAMILY HISTORY Problem Relation Age of Onset Cancer Mother thyroid Cancer Father thyroid? Cancer Maternal Grandmother thyroid Hypertension Maternal Grandmother Hypertension Maternal Grandfather Patient Allergies ALLERGIES Allergen Reactions Bee Sting Swelling Local swelling and shortness of breath Dermabond [2-Octyl * Rash Current Medications Current Outpatient Medications on File Prior to Visit Medication Sig dupilumab 300 mg/2 mL subcutaneous syringe (DUPIXENT SYRINGE) Inject 2 mL subcutaneously one time aweek. albuterol HFA (PROAIR HFA) 90 mcg/actuation inhaler Inhale 2 Puffs as instructed every 6 hours as needed. dupilumab (DUPIXENT PEN) 300 mg/2 mL pen injection Inject 300 mg subcutaneously one time a week. HYDROcodone-acetaminophen (NORCO) 5-325 mg per tablet (Patient not taking: Reported on 07/04/2023) busPIRone (BUSPAR) 5 mg tablet Take 1 tablet by mouth twice daily as needed (anxiety attack). allopurinol (ZYLOPRIM) 100 mg tablet Take 1 tablet by mouth once daily. For gout. budesonide (PULMICORT) 0.5 mg/2 mL nebulizer solution For eosinophilic esophagitis. Mix 4 respules with 5 packs of Splenda and swallow daily. Do not eat or drink for 30 minutes after omeprazole (PRILOSEC) 40 mg capsule Take 1 capsule by mouth once daily. fluticasone (FLONASE) 50 mcg/actuation nasal spray Use 1 [place] in each nostril daily at bedtime. cyclobenzaprine (FLEXERIL) 10 mg tablet Take 1 tablet by mouth three times daily as needed for muscle spasm. (Patient not taking: Reported on 08/01/2023) montelukast (SINGULAIR) 10 mg tablet Take 1 tablet by mouth daily at bedtime. hyoscyamine (LEVSIN) 0.125 mg tablet Take 1 tablet by mouth every 4 hours as needed (abdominal cramping, abdominal pain). sertraline (ZOLOFT) 25 mg tablet Take 1 tablet by mouth once daily. At bedtime amino acids (BCAA ORAL) Take by mouth once daily. whey protein, concent-isolate (WHEY PROTEIN, CONC-ISOLATE ORAL) Take by mouth once daily. albuterol HFA (PROAIR HFA) 90 mcg/actuation inhaler Inhale 2 Puffs as instructed every 4 hours as needed. cetirizine (ZYRTEC) 10 mg tablet Take 10 mg by mouth once daily. No current facility-administered medications on file prior to visit. Social History Social History Tobacco Use Smoking status: Never Smokeless tobacco: Never Vaping Use Vaping Use: Never used Substance Use Topics Alcohol use: Yes Alcohol/week: 5.0 standard drinks of alcohol Types: 3 Standard drinks or equivalent, 2 Cans of Beer (12oz) per week Comment: occasional alcohol use Drug use: No REVIEW OF SYSTEMS: as above Reviewed relevant PMHx, PSHx, Social Hx, current medications and allergies. Review of Symptoms REVIEW OF SYSTEMS See HPI. EXAM: BP 138/74 (BP Site: Left Arm, BP Position: Sitting, BP Cuff Size: Regular Adult) Pulse 60 Resp 12 Wt 105.1 kg (231 lb 9.6 oz) BMI 30.56 kg/m General Appearance: Well appearing, alert, in no acute distress, well-hydrated, well nourished.. Skin: Skin color, texture, turgor normal, no suspicious rashes or lesions. Lungs: Lungs clear to auscultation. No wheezing, rhonchi, rales.. Heart: RRR without murmur, gallop, or rubs. No ectopy. Health Maintenance List Spirometry Never done HIV Screening Never done Hepatitis B Vaccine(1 of 3 - 19+ 3-dose series) due on 12/01/2024 Covid-19 Vaccine(2022-24 season) due on 12/01/2024 Annual PCP Team Chronic Disease Visit due on 04/26/2024 Influenza Vaccine(Season Ended) due on 04/29/2024 Lipid Screening due on 04/26/2028 DTaP,Tdap,Td Vaccine(2 - Td or Tdap) due on 09/17/2029 Colorectal Cancer Screening due on 01/21/2031 Hepatitis C Screening Completed HPV Vaccine Aged Out ASSESSMENT/PLAN: 1. Situational anxiety - ICD9: 300.09, ICD10: F41.8 Increase zoloft to 50 mg daily x 3 months during recovery period, then RTO in 3 months to reassess and possible decrease back down. Prescribed short-term, low dose xanax as needed for situational anxiety related to upcoming surgery. Given 14 tablets only for this week and during recovery period. Pt aware of controlled substance properties and side effects of this medication. - SERTRALINE 50 MG TABLET - ALPRAZOLAM 0.25 MG TABLET PDMP website checked and validated. All prescriptions have been APPROPRIATELY filled. No suspiciousactivity was identified. 12/02/2023 by Shelly Broderick APRN.EMERY GRINDER RTO in 3 months, sooner if needed. Prescription instructions reviewed with patient as applicable. Potential red flag symptoms discussed with the patient. Reviewed appropriate action plan to take if red flag symptoms occur. Patient agreeable to treatment plan. Shelly Dejesus APRN.K[facility] [address] [place] [address] documented in this encounterRegency [facility]03-15-2024 Miscellaneous Notes* Telephone Encounter - Mady Betancur RN - 11/11/2023 1:55 PM EDT PA submitted via [facility] dupilumab 300 mg/2 mL subcutaneous syringe (DUPIXENT SYRINGE) 12 Each 3 11/07/2023 -- Sig: Inject 2 mL subcutaneously one time a week. Goel: [id number] PA documented in this encounterRegency Hospital [facility]03-11-2024 Instructions* Patient Instructions* Robi Hendrickson MD - 11/07/2023 4:57 PM EDT Schedule EGD with Dr. Da Silva - you can call [phone] 2. Start dupixent 1 shot weekly 3. Return to clinic in 4 months - you can call [phone] to schedule documented in this encounterRegency Hospital [facility]03-11-2024 History of Present illness Narrative* Robi Hendrickson MD - 11/07/2023 4:32 PM EDT VIRTUAL VISIT FOLLOW UP I have communicated my name and active licensure. The patient's identity and physical location wereverified at the time of this visit. Either the patient or their legal medicare sales representative has been informed of the risks and benefits of -- and alternatives to -- treatment through a remote evaluation andconsents to proceed with the evaluation remotely. I had a virtual visit with Mr. Gross today for follow up of eosinophilic esophagitis. UPDATED HISTORY: --Has not yet received dupilumab --Having more dysphagia with solids like meats and breads, thinks he needs another dilation PAST MEDICAL HISTORY Diagnosis Date Acute right-sided back pain with sciatica Arthritis Asthma Awareness under anesthesia Dysthymia 02/03/2022 Eosinophilic esophagitis THA (generalized anxiety disorder) Generalized anxiety disorder Obstructive sleep apnea Palpitations Seasonal allergies Well adult exam PAST SURGICAL HISTORY Procedure Laterality Date ABDOMINAL SURGERY HX APPENDECTOMY HX 2020 COLONOSCOPY 01/21/2021 EGD 10/22/2020 Active esophagitis with increased intraepithelial eosinophils,Inflamed gastric cardiac type mucosa with reactive epithelial changes and focal pancreatic heterotopia, Active esophagitis with increasedintraepithelial eosinophils, small mass lesion was found at the gastroesophageal junction. EGD 01/21/2021 PAST SURGICAL HISTORY OF 02/2012 left foot surgery PAST SURGICAL HISTORY OF 2009 repair tendon right hand PAST SURGICAL HISTORY OF 05/2018 Throat SINUS SURGERY HX 2015 FAMILY HISTORY Problem Relation Age of Onset Cancer Mother thyroid Cancer Father thyroid? Cancer Maternal Grandmother thyroid Hypertension Maternal Grandmother Hypertension Maternal Grandfather Social History Tobacco Use Smoking status: Never Smokeless tobacco: Never Vaping Use Vaping Use: Never used Substance Use Topics Alcohol use: Yes Alcohol/week: 5.0 standard drinks of alcohol Types: 3 Standard drinks or equivalent, 2 Cans of Beer (12oz) per week Comment: occasional alcohol use Drug use: No Current Outpatient Medications Medication Sig Dispense Refill albuterol HFA (PROAIR HFA) 90 mcg/actuation inhaler Inhale 2 Puffs as instructed every 6 hours as needed. 1 Each 0 dupilumab (DUPIXENT PEN) 300 mg/2 mL pen injection Inject 300 mg subcutaneously one time a week. 12Each 3 HYDROcodone-acetaminophen (NORCO) 5-325 mg per tablet (Patient not taking: Reported on 07/04/2023) busPIRone (BUSPAR) 5 mg tablet Take 1 tablet by mouth twice daily as needed (anxiety attack). 60 tablet 5 allopurinol (ZYLOPRIM) 100 mg tablet Take 1 tablet by mouth once daily. For gout. 30 tablet 11 budesonide (PULMICORT) 0.5 mg/2 mL nebulizer solution For eosinophilic esophagitis. Mix 4 respules with 5 packs of Splenda and swallow daily. Do not eat or drink for 30 minutes after 720 mL 3 omeprazole (PRILOSEC) 40 mg capsule Take 1 capsule by mouth once daily. 30 capsule 3 fluticasone (FLONASE) 50 mcg/actuation nasal spray Use 1 [place] in each nostril daily at bedtime. 1 Each 0 cyclobenzaprine (FLEXERIL) 10 mg tablet Take 1 tablet by mouth three times daily as needed for muscle spasm. (Patient not taking: Reported on 08/01/2023) 30 tablet 0 montelukast (SINGULAIR) 10 mg tablet Take 1 tablet by mouth daily at bedtime. 90 tablet 3 hyoscyamine (LEVSIN) 0.125 mg tablet Take 1 tablet by mouth every 4 hours as needed (abdominal cramping, abdominal pain). 20 tablet 1 sertraline (ZOLOFT) 25 mg tablet Take 1 tablet by mouth once daily. At bedtime 30 tablet 5 amino acids (BCAA ORAL) Take by mouth once daily. whey protein, concent-isolate (WHEY PROTEIN, CONC-ISOLATE ORAL) Take by mouth once daily. albuterol HFA (PROAIR HFA) 90 mcg/actuation inhaler Inhale 2 Puffs as instructed every 4 hours as needed. 18 g 1 cetirizine (ZYRTEC) 10 mg tablet Take 10 mg by mouth once daily. 0 No current facility-administered medications for this visit. ALLERGIES Allergen Reactions Bee Sting Swelling Local swelling and shortness of breath Dermabond [2-Octyl * Rash REVIEW OF SYSTEMS: PAIN ASSESSMENT: Negative for pain, history of chronic pain, or current treatment for a chronic pain condition. GENERAL: No weight loss, malaise or fevers RESPIRATORY: Negative for cough, hemoptysis, wheezing, COPD, dyspnea or shortness of breath CARDIOVASCULAR: Negative for chest pain, leg swelling, hypertension, CHF or palpitations GI: see above PHYSICAL FINDINGS OF NOTE: General - Normal, healthy, cooperative, in no acute distress Able to interact verbally by video conference Psych - ORIENTATION: normal to time place, person and situation Mood/Affect: AFFECT AND MOOD: Normal Head/Neuro - Normal size and shape Facial appearance normal Pulmonary - respiratory effort normal Cardiovascular - patient describes extremities normal, warm, no cyanosis,no clubbing, and no edema Abdominal - Not performed Skin - abnormal lesions not visualized Motor - patient seen sitting with Normal appearing strength and coordination REVIEWED ITEMS EGD 2022 (on omeprazole and budesonide): The examined duodenum was normal. The entire examined stomach was normal. Mucosal changes including ringed esophagus were found in the entire esophagus. Esophageal findings were graded using the Eosinophilic Esophagitis Endoscopic Reference Score (EoE-EREFS) as: Edema Grade 0 Normal (distinct vascular markings), Rings Grade 2 Moderate (distinct rings that do not occlude passage of diagnostic 8-10 mm endoscope), Exudates Grade 0 None (no white lesions seen), Furrows Grade 1 Present (vertical lines with or without visible depth) and Stricture present. Biopsies were obtained from the proximal and distal esophagus with cold forceps for histology of suspected eosinophilic esophagitis. A guidewire was placed and the scope was withdrawn. Dilation was performed in the entire esophagus with a Savary dilator with mild resistance at 16 and moderate at 17 mm. A. Esophagus, biopsy: - Reactive squamous mucosa with increased intraepithelial eosinophils (focally up to 60/hpf). B. Esophagus, proximal, biopsy: - Reactive squamous mucosa with mild increase of intraepithelial eosinophils (focally up to 15/hpf). IMPRESSION Assessment: Pleasant 38M with eosinophilic esophagitis, with persistent elevated eosinophils despite PPI, topical corticosteroid, and diet. He has recurrent strictures despite the above therapies Given his continued elevated eosinophils and dysphagia despite PPI, topical corticosteroid, diet - reasonable to consider dupilumab. Long chat about dupilumab Will also order repeat EGD with further dilation given that he has recurrent dysphagia PLAN --Dupilumab 300mg SC weekly --EGD with further dilation (biopsies not required) --RTC in 4 months Robi Hendrickson MD documented in this encounterRegency [facility]03-04-2024 Miscellaneous Notes* Telephone Encounter - Rosangela Loyd Ma - 10/31/2023 9:59 AM EST Notified via [employer]. Rosangela Loyd Ma * Telephone Encounter - Pricilla Hatfield LPN - 10/19/2023 2:52 PM EST Left a message for pt to call the office and ask to speak to a nurse. Pt to pick the note up in [facility] at the desk. Pricilla Hatfield LPN * Telephone Encounter - Atul Bhatia RN - 10/18/2023 9:54 AM EST Left vm for pt to return call to nurse for provider message. * Telephone Encounter - Mary Del Rio PA-C - 10/18/2023 9:13 AM EST New work noted updated to return 10/14/23. Mary Del Rio PA-C 10/18/2023 * Telephone Encounter - Falguni Soria - 10/13/2023 2:41 PM EST Patient came to clinic today with a note from [facility] that excused him from work on 10/11/23-10/12/23 and he wanted to know if it could be extended to 10/13/23 because his fever broke today. Patient stated he was going to return to work on 10/14/23, please advise. documented in this encounterRegency [facility]-15-2024 Miscellaneous Notes* Telephone Encounter - Cynthia Mahoney APRN.KVNG - 10/13/2023 2:45 PM EST Patient presents to [facility] care for extended work excuse. Was seen here on 10/11/23- will be able to return to work tomorrow. Note printed and given to patient by JIM Urrutia. Cynthia Mahoney APRN.EMERY GRINDER documented in this encounterRegency Hospital [facility]02-14-2024 Miscellaneous Notes* Telephone Encounter - Taryn Saldana LPN - 10/12/2023 8:11 AM EST Message left for Leidy that Rx was sent to different pharmacy as requested. Taryn Saldana LPN * Telephone Encounter - Hang Colón APRN.CNP - 10/11/2023 1:35 PM EST Please call and let them know that the prescription was changed. * Telephone Encounter - Taryn Saldana LPN - 10/11/2023 1:27 PM EST Seen in [facility] today & was given Tamiflu, pt's Marizol reports [facility] does not have this avail & is asking for it to go to [facility] in [place]. Marizol called ahead & they do have itin stock. Med pending. Taryn Saldana LPN documented in this encounterRegency Hospital [place]02-13-2024 History of Present illness Narrative* Cynthia Mahoney APRN.EMERY GRINDER - 10/11/2023 11:16 AM EST Subjective Cough Associated symptoms include chest pain (with cough), chills, headaches, sore throat and myalgias. Pertinent negatives include no ear pain, no shortness of breath and no wheezing. Carl Gross is a 38 year old male who presents with productive cough, fever, and sore throat x2 days. Also has body aches, chills, chest pain with cough, headache. Fever at home has been 102 degrees F. He has been taking dayquil and nyquil at home. He denies any known sick contacts. Review of Systems Constitutional: Positive for chills and fever. Negative for malaise/fatigue. HENT: Positive for congestion and sore throat. Negative for ear pain. Respiratory: Positive for cough and sputum production. Negative for shortness of breath and wheezing. Cardiovascular: Positive for chest pain (with cough). Musculoskeletal: Positive for myalgias. Neurological: Positive for headaches. BP 122/80 Pulse 87 Temp 37.6 C (99.7 F) (Tympanic) Resp 16 Wt 104.2 kg (229 lb 12.8 oz) SpO2 96% BMI 30.32 kg/m PAST MEDICAL HISTORY Diagnosis Date Acute right-sided back pain with sciatica Arthritis Asthma Awareness under anesthesia Dysthymia 02/03/2022 Eosinophilic esophagitis THA (generalized anxiety disorder) Generalized anxiety disorder Obstructive sleep apnea Palpitations Seasonal allergies Well adult exam PAST SURGICAL HISTORY Procedure Laterality Date ABDOMINAL SURGERY HX APPENDECTOMY HX 2020 COLONOSCOPY 01/21/2021 EGD 10/22/2020 Active esophagitis with increased intraepithelial eosinophils,Inflamed gastric cardiac type mucosa with reactive epithelial changes and focal pancreatic heterotopia, Active esophagitis with increasedintraepithelial eosinophils, small mass lesion was found at the gastroesophageal junction. EGD 01/21/2021 PAST SURGICAL HISTORY OF 02/2012 left foot surgery PAST SURGICAL HISTORY OF 2009 repair tendon right hand PAST SURGICAL HISTORY OF 05/2018 Throat SINUS SURGERY HX 2016 ALLERGIES Bee Sting and Dermabond [2-Octyl Cyanoacrylate] MEDICATIONS albuterol HFA (PROAIR HFA) 90 mcg/actuation inhaler Inhale 2 Puffs as instructed every 6 hours as needed. busPIRone (BUSPAR) 5 mg tablet Take 1 tablet by mouth twice daily as needed (anxiety attack). allopurinol (ZYLOPRIM) 100 mg tablet Take 1 tablet by mouth once daily. For gout. budesonide (PULMICORT) 0.5 mg/2 mL nebulizer solution For eosinophilic esophagitis. Mix 4 respules with 5 packs of Splenda and swallow daily. Do not eat or drink for 30 minutes after omeprazole (PRILOSEC) 40 mg capsule Take 1 capsule by mouth once daily. fluticasone (FLONASE) 50 mcg/actuation nasal spray Use 1 [place] in each nostril daily at bedtime. montelukast (SINGULAIR) 10 mg tablet Take 1 tablet by mouth daily at bedtime. hyoscyamine (LEVSIN) 0.125 mg tablet Take 1 tablet by mouth every 4 hours as needed (abdominal cramping, abdominal pain). sertraline (ZOLOFT) 25 mg tablet Take 1 tablet by mouth once daily. At bedtime amino acids (BCAA ORAL) Take by mouth once daily. albuterol HFA (PROAIR HFA) 90 mcg/actuation inhaler Inhale 2 Puffs as instructed every 4 hours as needed. cetirizine (ZYRTEC) 10 mg tablet Take 10 mg by mouth once daily. oseltamivir (TAMIFLU) 75 mg capsule Take 1 capsule by mouth two times a day for 5 days. dupilumab (DUPIXENT PEN) 300 mg/2 mL pen injection Inject 300 mg subcutaneously one time a week. HYDROcodone-acetaminophen (NORCO) 5-325 mg per tablet (Patient not taking: Reported on 07/04/2023) cyclobenzaprine (FLEXERIL) 10 mg tablet Take 1 tablet by mouth three times daily as needed for muscle spasm. (Patient not taking: Reported on 08/01/2023) whey protein, concent-isolate (WHEY PROTEIN, CONC-ISOLATE ORAL) Take by mouth once daily. FAMILY HISTORY Problem Relation Age of Onset Cancer Mother thyroid Cancer Father thyroid? Cancer Maternal Grandmother thyroid Hypertension Maternal Grandmother Hypertension Maternal Grandfather Social History Tobacco Use Smoking status: Never Smokeless tobacco: Never Vaping Use Vaping Use: Never used Substance Use Topics Alcohol use: Yes Alcohol/week: 5.0 standard drinks of alcohol Types: 3 Standard drinks or equivalent, 2 Cans of Beer (12oz) per week Comment: occasional alcohol use Drug use: No Objective Physical Exam Vitals and nursing note reviewed. Constitutional: General: He is not in acute distress. Appearance: Normal appearance. He is not ill-appearing. HENT: Right Ear: Tympanic membrane, ear canal and external ear normal. Left Ear: Tympanic membrane, ear canal and external ear normal. Nose: Congestion and rhinorrhea present. Mouth/Throat: Mouth: Mucous membranes are moist. Pharynx: Oropharynx is clear. Uvula midline. Posterior oropharyngeal erythema present. No oropharyngeal exudate. Cardiovascular: Rate and Rhythm: Normal rate and regular rhythm. Heart sounds: Normal heart sounds. Pulmonary: Effort: Pulmonary effort is normal. No respiratory distress. Breath sounds: Normal breath sounds. No wheezing or rales. Musculoskeletal: Cervical back: Neck supple. Lymphadenopathy: Cervical: No cervical adenopathy. Skin: General: Skin is warm and dry. Findings: No erythema or rash. Neurological: Mental Status: He is alert. ASSESSMENT/PLAN: 1. Flu-like symptoms - ICD9: 780.99, ICD10: R68.89 (primary diagnosis) - suspect influenza - POC test resulted invalid x 2 so swab was sent for testing. Will treat with tamiflu- patient may DC this med if test is negative for influenza - COVID & INFLUENZA A/B NAAT, ROUTINE - OSELTAMIVIR 75 MG CAPSULE 2. Sore throat - ICD9: 462, ICD10: J02.9 - suspect viral - Group A strep molecular testing negative - Discussed supportive care treatment with fluids, rest and analgesia. - Follow-up with your PCP in 3-5 days if symptoms have not improved or sooner if symptoms worsen - Discussed red flags and need for immediate medical evaluation if any occur. - Discussed supportive care treatment with fluids, rest and analgesia. - Discussed expected course of illness Cynthia Mahoney APRN.EMERY GRINDER documented in this encounterCleveland [id number] Instructions* Patient Instructions* Cynthia Mahoney APRN.KVNG - 10/11/2023 11:16 AM EST ASSESSMENT/PLAN: 1. Flu-like symptoms - ICD9: 780.99, ICD10: R68.89 (primary diagnosis) - suspect influenza - POC test resulted invalid x 2 so swab was sent for testing. Will treat with tamiflu- patient may DC this med if test is negative for influenza - COVID & INFLUENZA A/B NAAT, ROUTINE - OSELTAMIVIR 75 MG CAPSULE 2. Sore throat - ICD9: 462, ICD10: J02.9 - suspect viral - Group A strep molecular testing negative - Discussed supportive care treatment with fluids, rest and analgesia. - Follow-up with your PCP in 3-5 days if symptoms have not improved or sooner if symptoms worsen - Discussed red flags and need for immediate medical evaluation if any occur. - Discussed supportive care treatment with fluids, rest and analgesia. - Discussed expected course of illness Cynthia Mahoney APRN.EMERY GRINDER Treatment for Viral Upper Respiratory Tract Infections Your body will kill off the virus by itself. Additionally, you can prime your body's immune system.This may help you get better more quickly. Drink lots of fluids Make sure you are eating well Get plenty of rest We do not have any medications that kill off these viruses. Antibiotics are used to treat bacterialinfections; however, they are not active against viral infections. There are some things that mighthelp you feel better, though. Vaporizers, humidifiers, hot showers, and hot fluids help open respiratory and sinus passages [place] Nasal [place] may offer relief of nasal and head congestion Milo's Vapor Rub may relieve congestion Tylenol and Advil help control fevers and headaches Salt water gargles help relieve sore throats Chloraceptic spray or throat lozenges may also help relieve sore throat symptoms Occasionally, viral infections turn into something more serious. You should see your doctor or return to the Urgent Care if: You have fevers for longer than five days You have fevers above 102 degrees You are still sick after 10 days You have shortness of breath or wheezing After several days you are getting worse rather than better documented in this encounterRegency Hospital [facility]12-05-2023 History of Present illness Narrative* Yesica Diaz PA-C - 08/02/2023 6:37 PM EST This note was created using Marqueeriter. Subjective Carl Gross is a 38 year old male. HPI Presents with a chief complaint of an asthma flare. He states he had cold symptoms about 2 weeks ago. He was seen 4 days ago at another urgent care and given doxycycline and Tessalon. He states the congestion and cold symptoms have improved but still has a lingering cough. He has a history of asthma and has been using his rescue inhaler multiple times a day. Started feeling more wheezy and short of breath today so came in. He states his albuterol inhaler is out of date so he would like a new one. No fever. No body aches or chills. He still has few days left of the doxycycline. He states coughhas been nonproductive. Review of Systems Constitutional: Negative. HENT: Negative. Respiratory: Positive for cough, shortness of breath and wheezing. Cardiovascular: Negative. Gastrointestinal: Negative. Genitourinary: Negative. Musculoskeletal: Negative. All other systems reviewed and are negative. PAST MEDICAL HISTORY Diagnosis Date Acute right-sided back pain with sciatica Arthritis Asthma Awareness under anesthesia Dysthymia 02/03/2022 Eosinophilic esophagitis THA (generalized anxiety disorder) Generalized anxiety disorder Obstructive sleep apnea Palpitations Seasonal allergies Well adult exam Current Outpatient Medications Medication Sig Dispense Refill dupilumab (DUPIXENT PEN) 300 mg/2 mL pen injection Inject 300 mg subcutaneously one time a week. 12Each 3 busPIRone (BUSPAR) 5 mg tablet Take 1 tablet by mouth twice daily as needed (anxiety attack). 60 tablet 5 allopurinol (ZYLOPRIM) 100 mg tablet Take 1 tablet by mouth once daily. For gout. 30 tablet 11 budesonide (PULMICORT) 0.5 mg/2 mL nebulizer solution For eosinophilic esophagitis. Mix 4 respules with 5 packs of Splenda and swallow daily. Do not eat or drink for 30 minutes after 720 mL 3 omeprazole (PRILOSEC) 40 mg capsule Take 1 capsule by mouth once daily. 30 capsule 3 fluticasone (FLONASE) 50 mcg/actuation nasal spray Use 1 [place] in each nostril daily at bedtime. 1 Each 0 montelukast (SINGULAIR) 10 mg tablet Take 1 tablet by mouth daily at bedtime. 90 tablet 3 hyoscyamine (LEVSIN) 0.125 mg tablet Take 1 tablet by mouth every 4 hours as needed (abdominal cramping, abdominal pain). 20 tablet 1 sertraline (ZOLOFT) 25 mg tablet Take 1 tablet by mouth once daily. At bedtime 30 tablet 5 amino acids (BCAA ORAL) Take by mouth once daily. albuterol HFA (PROAIR HFA) 90 mcg/actuation inhaler Inhale 2 Puffs as instructed every 4 hours as needed. 18 g 1 cetirizine (ZYRTEC) 10 mg tablet Take 10 mg by mouth once daily. 0 predniSONE (DELTASONE) 20 mg tablet Take 2 tablets by mouth once daily for 5 days. 10 tablet 0 albuterol HFA (PROAIR HFA) 90 mcg/actuation inhaler Inhale 2 Puffs as instructed every 6 hours as needed. 1 Each 0 HYDROcodone-acetaminophen (NORCO) 5-325 mg per tablet (Patient not taking: Reported on 07/04/2023) cyclobenzaprine (FLEXERIL) 10 mg tablet Take 1 tablet by mouth three times daily as needed for muscle spasm. (Patient not taking: Reported on 08/01/2023) 30 tablet 0 whey protein, concent-isolate (WHEY PROTEIN, CONC-ISOLATE ORAL) Take by mouth once daily. No current facility-administered medications for this visit. PAST SURGICAL HISTORY Procedure Laterality Date ABDOMINAL SURGERY HX APPENDECTOMY HX 2020 COLONOSCOPY 01/21/2021 EGD 10/22/2020 Active esophagitis with increased intraepithelial eosinophils,Inflamed gastric cardiac type mucosa with reactive epithelial changes and focal pancreatic heterotopia, Active esophagitis with increasedintraepithelial eosinophils, small mass lesion was found at the gastroesophageal junction. EGD 01/21/2021 PAST SURGICAL HISTORY OF 02/2012 left foot surgery PAST SURGICAL HISTORY OF 2009 repair tendon right hand PAST SURGICAL HISTORY OF 05/2018 Throat SINUS SURGERY HX 2015 FAMILY HISTORY Problem Relation Age of Onset Cancer Mother thyroid Cancer Father thyroid? Cancer Maternal Grandmother thyroid Hypertension Maternal Grandmother Hypertension Maternal Grandfather Social History Tobacco Use Smoking status: Never Smokeless tobacco: Never Vaping Use Vaping Use: Never used Substance Use Topics Alcohol use: Yes Alcohol/week: 5.0 standard drinks of alcohol Types: 3 Standard drinks or equivalent, 2 Cans of Beer (12oz) per week Comment: occasional alcohol use Drug use: No Objective BP 128/80 Pulse 80 Temp 36.6 C (97.9 F) Resp 16 Wt 108.9 kg (240 lb) SpO2 99% BMI 31.66kg/m Physical Exam Vitals reviewed. Constitutional: Appearance: Normal appearance. HENT: Head: Normocephalic and atraumatic. Cardiovascular: Rate and Rhythm: Normal rate and regular rhythm. Heart sounds: Normal heart sounds. Pulmonary: Effort: Pulmonary effort is normal. Breath sounds: Normal breath sounds. Musculoskeletal: Cervical back: Neck supple. Skin: General: Skin is warm and dry. Neurological: Mental Status: He is alert. Assessment and Plan ASSESSMENT/PLAN: 1. Exacerbation of asthma, unspecified asthma severity, unspecified whether persistent - ICD9: 493.92, ICD10: J45.901 We will treat with prednisone and refill his albuterol. Discussed continuing the doxycycline. If symptoms not improving after this would consider chest x-ray. His lungs are clear today and he is oxygenating 99%. No fever. Patient agreeable with plan. Yesica Diaz PA-C documented in this encounterRegency Hospital [facility]12-04-2023 Instructions* Patient Instructions* Robi Hendrickson MD - 08/01/2023 4:10 PM EST There is a new med called dupilumab - it is a weekly injection. It works really well in studies, and was just approved last year - so our experience with this is limited. The major issue is cost, sometimes there are issues with insurance approval. The major side effect we have seen is joint pain orrashes Start dupixent 300mg subcutaneous once per week. 2. Plan for a follow up visit in ~3-4 months, virtual is ok. documented in this encounterRegency Hospital [facility]12-04-2023 History of Present illness Narrative* Robi Hendrickson MD - 08/01/2023 3:38 PM EST Carl Gross, 38 year old male here for follow-up for eosinophilic esophagitis --Has been taking omeprazole, budesonide, and has been doing diet for eosinophilic esophagitis --Dysphagia improved with dilation, but he still has dysphagia and discomfort with eating. Dysphagia becomes severe after 5 months post-dilation GI EVALUATION EGD 06/2023 (on omeprazole and budesonide): The examined duodenum was normal. The entire examined stomach was normal. Mucosal changes including ringed esophagus were found in the entire esophagus. Esophageal findings were graded using the Eosinophilic Esophagitis Endoscopic Reference Score (EoE-EREFS) as: Edema Grade 0 Normal (distinct vascular markings), Rings Grade 2 Moderate (distinct rings that do not occlude passage of diagnostic 8-10 mm endoscope), Exudates Grade 0 None (no white lesions seen), Furrows Grade 1 Present (vertical lines with or without visible depth) and Stricture present. Biopsies were obtained from the proximal and distal esophagus with cold forceps for histology of suspected eosinophilic esophagitis. A guidewire was placed and the scope was withdrawn. Dilation was performed in the entire esophagus with a Savary dilator with mild resistance at 16 and moderate at 17 mm. A. Esophagus, biopsy: - Reactive squamous mucosa with increased intraepithelial eosinophils (focally up to 60/hpf). B. Esophagus, proximal, biopsy: - Reactive squamous mucosa with mild increase of intraepithelial eosinophils (focally up to 15/hpf). ALLERGIES Allergen Reactions Bee Sting Swelling Local swelling and shortness of breath Dermabond [2-Octyl * Rash Current Outpatient Medications Medication Sig Dispense Refill HYDROcodone-acetaminophen (NORCO) 5-325 mg per tablet (Patient not taking: Reported on 07/04/2023) busPIRone (BUSPAR) 5 mg tablet Take 1 tablet by mouth twice daily as needed (anxiety attack). 60 tablet 5 allopurinol (ZYLOPRIM) 100 mg tablet Take 1 tablet by mouth once daily. For gout. 30 tablet 11 budesonide (PULMICORT) 0.5 mg/2 mL nebulizer solution For eosinophilic esophagitis. Mix 4 respules with 5 packs of Splenda and swallow daily. Do not eat or drink for 30 minutes after 720 mL 3 omeprazole (PRILOSEC) 40 mg capsule Take 1 capsule by mouth once daily. 30 capsule 3 fluticasone (FLONASE) 50 mcg/actuation nasal spray Use 1 [place] in each nostril daily at bedtime. 1 Each 0 cyclobenzaprine (FLEXERIL) 10 mg tablet Take 1 tablet by mouth three times daily as needed for muscle spasm. 30 tablet 0 montelukast (SINGULAIR) 10 mg tablet Take 1 tablet by mouth daily at bedtime. 90 tablet 3 hyoscyamine (LEVSIN) 0.125 mg tablet Take 1 tablet by mouth every 4 hours as needed (abdominal cramping, abdominal pain). 20 tablet 1 sertraline (ZOLOFT) 25 mg tablet Take 1 tablet by mouth once daily. At bedtime 30 tablet 5 amino acids (BCAA ORAL) Take by mouth once daily. whey protein, concent-isolate (WHEY PROTEIN, CONC-ISOLATE ORAL) Take by mouth once daily. albuterol HFA (PROAIR HFA) 90 mcg/actuation inhaler Inhale 2 Puffs as instructed every 4 hours as needed. 18 g 1 cetirizine (ZYRTEC) 10 mg tablet Take 10 mg by mouth once daily. 0 No current facility-administered medications for this visit. Past medical, surgical and social history is reviewed and unchanged from prior visit. PHYSICAL EXAMINATION There were no vitals taken for this visit. General appearance: NAD, pleasant Assessment IMPRESSION Problem List Items Addressed This Visit None Assessment: Pleasant 38M with eosinophilic esophagitis, with persistent elevated eosinophils despite PPI, topical corticosteroid, and diet. He has recurrent strictures despite the above therapies Given his continued elevated eosinophils and dysphagia despite PPI, topical corticosteroid, diet - reasonable to consider dupilumab. Long chat about dupilumab PLAN --Dupilumab 300mg SC weekly --Return to clinic in 3 months, will discuss repeat EGD at that visit Robi Hendrickson MD August 01, 2023 3:38 PM documented in this encounterRegency Hospital [facility]11-21-2023 Nurse Note* Jazmin Gomez RN - 07/19/2023 3:32 PM EST AMBULATORY PATIENT EDUCATION NOTE TOPIC: GI PROCEDURES: Esophagogastroduodenoscopy(EGD) with or without biopies based on clinical findings, removal of polyps or lesions READINESS TO LEARN INSTRUCTION PROVIDED TO: Patient and family member COGNITIVE ABILITY: Alert and oriented PTED MOTIVATION TO LEARN: Interested FAMILY SUPPORT: High - Very involved in pt care IPATIENT LEARNS BEST BY: Individual Instruction Written Instruction - Hand-outs Verbal Instruction FACTORS AFFECTING LEARNING: None PHYSICAL LIMITATIONS AFFECTING LEARNING: None LEARNING RESPONSE METHOD OF INSTRUCTION: Individual instruction PATIENT / FAMILY RESPONSE: Verbalizes understanding of: WORSENING CONDITION- Signs and symptoms of aworsening condition that warrant a call to the physician FOLLOW-UP PLAN: Complete - No need for follow-up Patient instructed to call with any further issues SUPPLEMENTAL MATERIAL: Procedure Discharge Instructions REFERRAL (RECOMMENDATION): None * Ni Johansen LPN - 07/19/2023 2:15 PM EST PRE OP LEARNING ASSESSMENT PROCEDURE/SURGERY: GI PROCEDURES: EGD READINESS TO LEARN COGNITIVE ABILITY: Alert and oriented MOTIVATION TO LEARN: Eager Interested FAMILY SUPPORT: High - Very involved in pt care PATIENT LEARNS BEST BY: Individual Instruction Written Instruction - Hand-outs Verbal Instruction FACTORS AFFECTING LEARNING: None PHYSICAL LIMITATIONS AFFECTING LEARNING: None Electronically Signed By: Ni Johansen LPN In Department: GASTROENTEROLOGY documented in this encounterRegency Hospital [facility]11-06-2023 History of Present illness Narrative* Tiffanie Norwood MD - 07/04/2023 8:56 AM EST HYPOGONADISM INITIAL CONSULT PATIENT NAME: Carl Gross SERVICE DATE: 07/04/2023 SERVICE TIME: 9 AM REASON FOR CONSULT: Low libido, was referred to Endocrinology due to recent testosterone labs REQUESTING PHYSICIAN: Simba Horton [address] [facility] [address] Subjective HISTORY OF PRESENT ILLNESS: Mr. Gross is a 38 year old male with known eosinophilic esophagitis, anxiety, who is presenting as a new patient consultation with a chief complaint of low libido for thelast 2 years. He is not very specific in terms of erectile dysfunction, he says he has not been sexu ally active for atleast 8 months now. He does have spontaneous morning erections. In addition to low libido, he does report, fatigue and low energy levels, for which he was using pre-work out supplements in the past but has stopped taking 2 months ago. Patient denies any headaches, vision changes in the recent past, no changes in weight, denies any head trauma, radiation or surgery, denies any testicular trauma, or infection in childhood, he denieslong term opioid use (although his medication list does have hydrocodone) or known anabolic steroiduse. He denies any major stressors in life, or any recent life changes. He reports discussing about low libido with his and that she has suggested to seek medical help, and did not feel like bringingthis up with her again. Modifying factors: Patient has not been begun on andogen replacement therapy. His testosterone levels were checked by PCP once in 2020 which he reports were found to be low and repeat labs twice recently showed similar results. Puberty was normal. No changes in facial or body hair Mr. Gross currently reports the following signs & symptoms: poor libido and fatigue and deniesthe following symptoms: decline in facial hair growth, testicular atrophy, gynecomastia, weight gain, and depressed mood. The patient denies use of ketoconazole. Overall he has no other acute complaints or concerns today. He has a hx of eosinophilic esophagitis for which he has been PPI, and budesonide. He undergoes dilation of esophagus regularly. In addition, he also has a hx of gout on allopurinol and anxiety treated with buspirone. PAST MEDICAL HISTORY Diagnosis Date Acute right-sided back pain with sciatica Arthritis Asthma Awareness under anesthesia Dysthymia 02/03/2022 Eosinophilic esophagitis THA (generalized anxiety disorder) Generalized anxiety disorder Obstructive sleep apnea Palpitations Seasonal allergies Well adult exam PAST SURGICAL HISTORY Procedure Laterality Date ABDOMINAL SURGERY HX APPENDECTOMY HX 2020 COLONOSCOPY 01/21/2021 EGD 10/22/2020 Active esophagitis with increased intraepithelial eosinophils,Inflamed gastric cardiac type mucosa with reactive epithelial changes and focal pancreatic heterotopia, Active esophagitis with increasedintraepithelial eosinophils, small mass lesion was found at the gastroesophageal junction. EGD 01/21/2021 PAST SURGICAL HISTORY OF 02/2012 left foot surgery PAST SURGICAL HISTORY OF 2009 repair tendon right hand PAST SURGICAL HISTORY OF 05/2018 Throat SINUS SURGERY HX 2016 FAMILY HISTORY Problem Relation Age of Onset Cancer Mother thyroid Cancer Father thyroid? Cancer Maternal Grandmother thyroid Hypertension Maternal Grandmother Hypertension Maternal Grandfather Social History Tobacco Use Smoking status: Never Smokeless tobacco: Never Vaping Use Vaping Use: Never used Substance Use Topics Alcohol use: Yes Alcohol/week: 5.0 standard drinks of alcohol Types: 3 Standard drinks or equivalent, 2 Cans of Beer (12oz) per week Comment: occasional alcohol use Drug use: No MEDICATIONS: Current Outpatient Medications Medication Sig Dispense Refill busPIRone (BUSPAR) 5 mg tablet Take 1 tablet by mouth twice daily as needed (anxiety attack). 60 tablet 5 allopurinol (ZYLOPRIM) 100 mg tablet Take 1 tablet by mouth once daily. For gout. 30 tablet 11 budesonide (PULMICORT) 0.5 mg/2 mL nebulizer solution For eosinophilic esophagitis. Mix 4 respules with 5 packs of Splenda and swallow daily. Do not eat or drink for 30 minutes after 720 mL 3 omeprazole (PRILOSEC) 40 mg capsule Take 1 capsule by mouth once daily. 30 capsule 3 fluticasone (FLONASE) 50 mcg/actuation nasal spray Use 1 [place] in each nostril daily at bedtime. 1 Each 0 cyclobenzaprine (FLEXERIL) 10 mg tablet Take 1 tablet by mouth three times daily as needed for muscle spasm. 30 tablet 0 montelukast (SINGULAIR) 10 mg tablet Take 1 tablet by mouth daily at bedtime. 90 tablet 3 hyoscyamine (LEVSIN) 0.125 mg tablet Take 1 tablet by mouth every 4 hours as needed (abdominal cramping, abdominal pain). 20 tablet 1 sertraline (ZOLOFT) 25 mg tablet Take 1 tablet by mouth once daily. At bedtime 30 tablet 5 amino acids (BCAA ORAL) Take by mouth once daily. whey protein, concent-isolate (WHEY PROTEIN, CONC-ISOLATE ORAL) Take by mouth once daily. albuterol HFA (PROAIR HFA) 90 mcg/actuation inhaler Inhale 2 Puffs as instructed every 4 hours as needed. 18 g 1 cetirizine (ZYRTEC) 10 mg tablet Take 10 mg by mouth once daily. 0 HYDROcodone-acetaminophen (NORCO) 5-325 mg per tablet (Patient not taking: Reported on 07/04/2023) No current facility-administered medications for this visit. ALLERGIES Allergen Reactions Bee Sting Swelling Local swelling and shortness of breath Dermabond [2-Octyl * Rash COMPLETE REVIEW OF SYSTEMS: Constitutional: no fever, chills or acute changes in weight in the last 6 months Skin: no rashes Cardiovascular: denies heart palpitations Pulmonary: denies wheezing and denies productive cough Gastrointestonal: denies nausea, vomiting, diarrhea or constipation Genitourinary: denies nocturia, polyuria, frequency and urgency Musculoskeletal: denies any difficulty ambulating Neurological: no numbness, no tingling, and no focal weakness Endocrine: negative for Diabetes, negative for Thyroid disease, and negative for Jeremy's disease Hematologic: Negative for anemia. Objective PHYSICAL EXAM: BP 132/82 Pulse 79 Resp 17 Wt 112 kg (247 lb) SpO2 96% BMI 33.09 kg/m2 Appearance: Well appearing, alert, in no acute distress, well nourished and muscular Skin: no rashes or skin lesions HEENT: normocephalic/atraumatic, EOMI Neck: Supple, no cervical lymphadenopathy; thyroid is normal in size, no bruits Heart: RRR without murmur, gallop, or rubs. No ectopy Lungs: Lungs clear to auscultation. No wheezing, rhonchi, rales. Abdomen: soft, non-tender Genitourinary: deferred Extremities: Normal, No deformities, No edema, and Normal pulses bilaterally. DATA: Diagnostic tests reviewed for today's visit: Most recent labs Component Latest Ref Rng & Units 06/17/2021 04/26/2023 05/05/2023 Testosterone 240 - 950 ng/dL 389 310 296 Testosterone Free 4.46 - 17.1 ng/dL 11.7 13.8 10.8 TSH 0.270 - 4.200 mIU/L 0.740 0.631 Free T4 0.9 - 1.7 ng/dL 1.2 1.4 Free T3 2.3 - 4.1 pg/mL 3.4 Component Latest Ref Rng & Units 04/26/2023 Hemoglobin A1C 4.3 - 5.6 % 5.3 Estimated Average Glucose mg/dL 105 Impression/Recommendations This is a 38 year old male who is referred to Endocrinology by his PCP due to low libido, and due to questionable low testosterone from recent labs done. After reviewing the history, examination and labs, I reassured the patient that there is no concernfor hypogonadism given his free testosterone levels are within normal range x3. I, further discussed with him that his complaint of low libido might more likely be functional rather than organic. All questions were welcomed and answered. SIGNATURE: Tiffanie Norwood MD DATE: July 04, 2023 TIME: 3:03 PM documented in this encounterReg[facility]-22-2023 Miscellaneous Notes* Telephone Encounter - Sakina Drake LPN - 05/20/2023 1:22 PM EDT Patient phones requesting refills as follows: Requested Prescriptions Pending Prescriptions Disp Refills busPIRone (BUSPAR) 5 mg tablet 60 tablet 5 Sig: Take 1 tablet by mouth twice daily as needed (anxiety attack). STEPHON-04/26/23 Labs-05/05/23 NOV-05/01/24 Please review and advise. Sakina Drake LPN documented in this encounterRegency Hospital [facility]09-20-2023 Telephone encounter Note * Telephone Encounter - Simba Horton DO - 05/18/2023 9:02 PM EDT See other Simba THRASHER DO [facility]-20-2023 Miscellaneous Notes* Telephone Encounter - Simba Horton DO - 05/18/2023 9:02 PM EDT See other Simba THRASHER DO * Telephone Encounter - Nicole Bob LPN - 05/13/2023 4:43 PM EDT Images from the original note were not included. Question regarding TESTOSTERONE, FREE AND TOTAL Received: Today Carl Gross Wstr Famp My Chart Rx Pool Is there anything we can do? documented in this encounterRegency Hospital [facility]09-20-2023 Miscellaneous Notes* Telephone Encounter - Ana Cristina Marroquin RN - 05/18/2023 4:14 PM EDT Patient returned call and given provider's message below and patient verbalized understanding. Jeanine Marroquin RN * Telephone Encounter - Magnolia Arreguin - 05/18/2023 10:38 AM EDT LEFT MESSAGE FOR PATIENT TO RETURN CALL FOR RESULTS. 1ST ATTEMPT. Magnolia Arreguin * Telephone Encounter - Simba Horton DO - 05/18/2023 8:47 AM EDT Please inform patient that testosterone is still in the lower normal range, now in the upper 200s. Can consider opinion by Tool Technician regarding if interested in considering testosterone therapy/medication Simba Horton DO documented in this encounterRegency Hospital [facility]09-15-2023 Telephone encounter Note * Telephone Encounter - Nicole Bob LPN - 05/13/2023 4:43 PM EDT Images from the original note were not included. Question regarding TESTOSTERONE, FREE AND TOTAL Received: Today Carl Gross Wstr Famp My Chart Rx Pool Is there anything we can do? [facility]-07-[facility] Miscellaneous Notes* Telephone Encounter - Pricilla Hatfield LPN - 05/05/2023 10:07 AM EDT Spoke with pt and information listed below given. Pt verbalizes understanding. Pricilla Hatfield LPN * Telephone Encounter - Magnolia Arreguin - 05/05/2023 8:40 AM EDT Left message to return call Magnolia Arreguin * Telephone Encounter - Simba Horton DO - 05/04/2023 7:58 PM EDT Please inform patient that we always double check this result with a repeat. He can get this drawn any time. If it is still in the 300s, he can consider one of the testosterone booster supplements over the counter (such as Santi support vitamin) or can consider opinion by Tool Technician to start testosterone medication Simba Horton DO * Telephone Encounter - Nicole Bob LPN - 05/04/2023 5:08 PM EDT Images from the original note were not included. Question regarding TESTOSTERONE, FREE AND TOTAL Received: Today Carl Gross Wstr Famp My Chart Rx Pool Hi This low result concerns me, not only for the gym but personal life well. A couple years ago it wasmuch higher. documented in this encounterRegency [facility]09-06-2023 Miscellaneous Notes* Telephone Encounter - Nicole Bob LPN - 05/04/2023 5:08 PM EDT See telephone note documented in this encounterRegency [facility]09-06-2023 Miscellaneous Notes* Telephone Encounter - Ana Cristina Marroquin RN - 05/04/2023 3:53 PM EDT Patient returned call and given provider's message below. Jeanine Marroquin RN * Telephone Encounter - Becca Trujillo RN - 05/04/2023 1:15 PM EDT Called and left a voicemail for the Patient to call back and ask for a nurse to receive the providers message. Becca Trujillo RN * Telephone Encounter - Simba Horton DO - 05/04/2023 9:36 AM EDT Please inform patient that overall his labs are all stable. Cholesterol is much improved. Great job Simba Horton DO documented in this encounterRegency Hospital [facility]08-29-2023 History of Present illness Narrative* Simba Horton DO - 04/26/2023 7:51 AM EDT CC: Carl Gross is a 38 year old male who presents to the office for physical HPI: Eosinophilic esophagitis. Present the last couple of years. Had recent EGD 2-3 weeks ago. Seems to be improving with improvement in his diet. Use of budesonide and omeprazole as well as prescribed. No heart burn or hoarseness or taste disturbance at this time. 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 Enjoying this. Would like testosterone levels checked. Anxiety, stable, no concerns Bilateral shoulder pain, most bothersome at night when laying on his side to sleep. Doesn't sleep well on his back due to BOB. Trying to buy a wedge pillow. No known injuries. Does do a lot of heavy lifting at work and repetitive use. PAST MEDICAL HISTORY Diagnosis Date Acute right-sided back pain with sciatica Arthritis Asthma Awareness under anesthesia Dysthymia 02/03/2022 Eosinophilic esophagitis THA (generalized anxiety disorder) Generalized anxiety disorder Obstructive sleep apnea Palpitations Seasonal allergies Well adult exam PAST SURGICAL HISTORY Procedure Laterality Date ABDOMINAL SURGERY HX APPENDECTOMY HX 2020 COLONOSCOPY 01/21/2021 EGD 10/22/2020 Active esophagitis with increased intraepithelial eosinophils,Inflamed gastric cardiac type mucosa with reactive epithelial changes and focal pancreatic heterotopia, Active esophagitis with increasedintraepithelial eosinophils, small mass lesion was found at the gastroesophageal junction. EGD 01/21/2021 PAST SURGICAL HISTORY OF 02/2012 left foot surgery PAST SURGICAL HISTORY OF 2009 repair tendon right hand PAST SURGICAL HISTORY OF 05/2018 Throat SINUS SURGERY HX 2015 Social History: Social History Tobacco Use Smoking status: Never Smokeless tobacco: Never Vaping Use Vaping Use: Never used Substance Use Topics Alcohol use: Yes Alcohol/week: 5.0 standard drinks of alcohol Types: 3 Standard drinks or equivalent, 2 Cans of Beer (12oz) per week Comment: occasional alcohol use Drug use: No FAMILY HISTORY Problem Relation Age of Onset Cancer Mother thyroid Cancer Father thyroid? Cancer Maternal Grandmother thyroid Hypertension Maternal Grandmother Hypertension Maternal Grandfather Current Outpatient prescriptions: budesonide (PULMICORT) 0.5 mg/2 mL nebulizer solution For eosinophilic esophagitis. Mix 4 respules with 5 packs of Splenda and swallow daily. Do not eat or drink for 30 minutes after omeprazole (PRILOSEC) 40 mg capsule Take 1 capsule by mouth once daily. budesonide (PULMICORT) 0.5 mg/2 mL nebulizer solution For eosinophilic esophagitis. Mix 4 respules with 5 packs of Splenda and swallow daily. Do not eat or drink for 30 minutes after fluticasone (FLONASE) 50 mcg/actuation nasal spray Use 1 [place] in each nostril daily at bedtime. meloxicam (MOBIC) 15 mg tablet Take 1 tablet by mouth once daily. With food. (Patient taking differently: Take 15 mg by mouth once daily. With food. As needed) montelukast (SINGULAIR) 10 mg tablet Take 1 tablet by mouth daily at bedtime. hyoscyamine (LEVSIN) 0.125 mg tablet Take 1 tablet by mouth every 4 hours as needed (abdominal cramping, abdominal pain). sertraline (ZOLOFT) 25 mg tablet Take 1 tablet by mouth once daily. At bedtime busPIRone (BUSPAR) 5 mg tablet Take 1 tablet by mouth twice daily as needed (anxiety attack). amino acids (BCAA ORAL) Take by mouth once daily. whey protein, concent-isolate (WHEY PROTEIN, CONC-ISOLATE ORAL) Take by mouth once daily. albuterol HFA (PROAIR HFA) 90 mcg/actuation inhaler Inhale 2 Puffs as instructed every 4 hours as needed. cetirizine (ZYRTEC) 10 mg tablet Take 10 mg by mouth once daily. allopurinol (ZYLOPRIM) 100 mg tablet Take 1 tablet by mouth once daily. For gout. budesonide (PULMICORT) 0.5 mg/2 mL nebulizer solution For eosinophilic esophagitis. Mix 4 respules with 5 packs of Splenda and swallow daily. Do not eat or drink for 30 minutes after benzonatate (TESSALON PERLES) 100 mg capsule Take 1 capsule by mouth three times daily as needed for cough. cyclobenzaprine (FLEXERIL) 10 mg tablet Take 1 tablet by mouth three times daily as needed for muscle spasm. Allergies: ALLERGIES Allergen Reactions Bee Sting Swelling Local swelling and shortness of breath Dermabond [2-Octyl * Rash ROS: See HPI PE: 04/26/23 0744 BP: 110/80 Pulse: 64 Resp: 16 Temp: 36.4 C (97.5 F) TempSrc: Right Tympanic Weight: 114.8 kg (253 lb) Height: 184 cm (6' 0.44) Gen: A&O, NAD, non-toxic appearing, Pleasant, cooperative HEENT: NT/AC, PERRLA, EOMs intact b/l, nares clear and patent b/l, pharynx without erythema, exudate or lesions. Uvula midline, MMM. EACs without erythema or debris. TMs pearly jade with intact landmarks b/l. Neck: supple, No cervical LAD, no thyromegaly, no carotid bruits CV: RRR, normal S1 and S2, no murmurs, no gallops, no rubs, Pulses 2+ and symmetric in UE and LE b/l Lungs: normal respiratory effort, CTA b/l, no wheezing or rhonchi or rales Abd: soft, NT, ND, +BS, no hepatosplenomegaly MS: mild signs of rotator cuff impingement with Carey positive on left and Neers positive on leftside of shoulder and lift off testing positive on right, no signs of instability of shoulders or dislocation Neuro: CN II-XII intact b/l, strength 5/5 b/l UE and LE, DTRs 2/4 UE and LE, sensation intact. Skin: warm, dry, intact, No rashes or lesions on exposed skin. No edema, normal pulses ASSESSMENT/PLAN: 1. Well adult exam - ICD9: V70.0, ICD10: Z00.00 (primary diagnosis) - Counseled on healthy diet and regular exercise - Discussed need for and benefit of weight loss. BMI 33.90 kg/(m^2) - COMP METABOLIC PANEL - CBC + DIFF - LIPID PANEL BASIC - TESTOSTERONE, FREE AND TOTAL - TSH BLD - T4 FREE/FREE THYROX - VITAMIN B12 BLOOD - HGB A1C 2. Acute esophagitis - ICD9: 530.12, ICD10: K20.90 - d/w him considering limiting gluten and dairy in diet. F/u with Gastro 3. Eosinophilic esophagitis - ICD9: 530.13, ICD10: K20.0 - d/w him considering limiting gluten and dairy in diet. F/u with Gastro 4. Chronic gout of multiple sites, unspecified cause - ICD9: 274.02, ICD10: M1A.09X0 Recheck labs as ordered - URIC ACID BLOOD 5. Chronic pain of both shoulders - ICD9: 719.41, 338.29, ICD10: M25.511, G89.29, M25.512 Stretches as d/w him today, consider icing and topical Voltaren 1% cream 6. Bunion of great toe of left foot - ICD9: 727.1, ICD10: M21.612 F/u with sandblaster stone Simba Horton, DO To ER if develops chest pain, shortness of breath, or severe worsening of symptoms. Discussed risks, benefits, alternatives, and potential side effects of medications. Patient expressed understanding and agreed with the plan. Simba Horton DO [address] [place] [address] documented in this encounterRegency [facility]08-11-2023 Miscellaneous Notes* Telephone Encounter - Dena Morelos LPN - 04/08/2023 1:46 PM EDT These were faxed over yesterday . documented in this encounterRegency [facility]08-10-2023 Miscellaneous Notes* Telephone Encounter - Magnolia Arreguin - 04/07/2023 4:06 PM EDT Faxed and pt informed via [employer] Magnolia Arreguin * Telephone Encounter - Simba Horton DO - 04/06/2023 10:03 PM EDT Please fax paperwork as patient is requesting below and then notify him Simba Horton DO * Telephone Encounter - Magnolia Arreguin - 04/06/2023 3:58 PM EDT Images from the original note were not included. Additional message- Carl Selftr Famp My Chart Rx Pool (supporting Simba Horton DO) 2 days ago [facility]. Can you fax that [facility] paperwork to Dr. Irizarry office? Attachments [id number] * Telephone Encounter - Dena Morelos LPN - 03/30/2023 2:12 PM EDT Copied from my chart message. I had a procedure on my esophagus yesterday with Dr. Da Silva. I dropped FMLA paperwork for you to fill out and fax back for 03/30/23. I don t need any additional days. Dr. Da Silva only works one day a week so she told me to have you fill out. Thanks Carl Gross documented in this encounterRegency Hospital [facility]08-03-2023 Miscellaneous Notes* Telephone Encounter - Linda Sosa RN - 03/31/2023 2:58 PM EDT Spoke with patient. Given message from provider's office. Patient verbalizes understanding. Linda Sosa RN * Telephone Encounter - Sakina Drake LPN - 03/31/2023 1:21 PM EDT TC to pt. LM to call office, ask for triage nurse to get updates. Sakina Drake LPN * Telephone Encounter - Shelly Broderick APRN.CNP - 03/31/2023 12:28 PM EDT If FMLA is related to GI issues -- then these needs filled out by his GI team. I have never seen patient for any GI issues nor did I refer him to have this procedure done. I apologize for the inconvenience. Shelly Broderick APRN.KVNG * Telephone Encounter - Christy Tee LPN - 03/31/2023 11:18 AM EDT Patient returned call and said FMLA is concerning his esophagus being stretched which he has to have done every 6 months. He had procedure done late 03/29/2023 and had taken off work 03/30/2023. He had no vacation time to cover that, so his work is having him do the FMLA. Patient said Dr Da Silva wanted PCPto take care of the paper work. Patient said he has appt scheduled with PCP later this month, does not want to come in now for this. * Telephone Encounter - Dena Morelos LPN - 03/31/2023 10:44 AM EDT Left detailed message for ot to return call with information below. * Telephone Encounter - Shelly Broderick APRN.KVNG - 03/30/2023 6:28 PM EDT Please get more information about this. Pt has not been seen by PCP team since November -- is this related to his ankle injury?. If not, Pt needs appointment to assess and discuss this. Thank you, Shelly Broderick APRN.KVNG * Telephone Encounter - Nicole Bob LPN - 03/30/2023 1:48 PM EDT Type of form: FMLA Form received via walk in When form is completed, Fax form Form has been forwarded to Desk of Shelly Bob LPN documented in this encounterRegency [facility]08-02-2023 Miscellaneous Notes* Telephone Encounter - Sakina Drake LPN - 03/30/2023 3:48 PM EDT Patient phones requesting refills as follows: Requested Prescriptions Pending Prescriptions Disp Refills omeprazole (PRILOSEC) 40 mg capsule 30 capsule 3 Sig: Take 1 capsule by mouth once daily. STEPHON-02/02/23 Labs-01/12/22 NOV-04/26/23 Please review and advise. Sakina Drake LPN documented in this encounterRegency Hospital [facility]08-02-2023 Miscellaneous Notes* Telephone Encounter - Dena Morelos LPN - 03/30/2023 2:10 PM EDT Copied to phone note. documented in this encounterRegency Hospital [facility]08-01-2023 Nurse Note* Nora Ohara RN - 03/29/2023 4:18 PM EDT AMBULATORY PATIENT EDUCATION NOTE TOPIC: GI PROCEDURES: Esophagogastroduodenoscopy(EGD) for control of bleeding,dilation(any means),imaging,tube placement READINESS TO LEARN INSTRUCTION PROVIDED TO: Patient, readness to learn accessed prior to procedure and Patient and family member COGNITIVE ABILITY: Alert and oriented PTED MOTIVATION TO LEARN: Eager Interested FAMILY SUPPORT: High - Very involved in pt care IPATIENT LEARNS BEST BY: Individual Instruction FACTORS AFFECTING LEARNING: None PHYSICAL LIMITATIONS AFFECTING LEARNING: None LEARNING RESPONSE METHOD OF INSTRUCTION: Individual instruction PATIENT / FAMILY RESPONSE: Verbalizes understanding of: WORSENING CONDITION- Signs and symptoms of aworsening condition that warrant a call to the physician FOLLOW-UP PLAN: Patient instructed to call with any further issues Recommend - Recommend continued instruction and follow up as directed Contact information given. SUPPLEMENTAL MATERIAL: Procedure Discharge Instructions REFERRAL (RECOMMENDATION): None * Chai Carrillo RN - 03/29/2023 2:50 PM EDT PRE OP LEARNING ASSESSMENT PROCEDURE/SURGERY: GI PROCEDURES: EGD READINESS TO LEARN COGNITIVE ABILITY: Alert and oriented MOTIVATION TO LEARN: Eager FAMILY SUPPORT: High - Very involved in pt care PATIENT LEARNS BEST BY: Individual Instruction FACTORS AFFECTING LEARNING: None PHYSICAL LIMITATIONS AFFECTING LEARNING: None Electronically Signed By: Chai Carrillo RN In Department: GASTROENTEROLOGY documented in this encounterRegency Hospital [facility]06-19-2023 Miscellaneous Notes* Telephone Encounter - Steph Root Ma - 02/14/2023 10:39 AM EDT Sweetie, please see pt message. Pt was seen by you on 02/02/23. Steph Root Ma documented in this encounterRegency Hospital [facility]06-07-2023 History of Present illness Narrative* Sweetie Tyson, MASOUD.EMERY GRINDER - 02/02/2023 12:16 PM EDT 02/02/2023 Patient presents with: Sinus Problem: Nasal congestion, was seen in [facility] and given ATB. Not getting any better and has been having to use inhaler quite often. PCP normally prescribes patient prednisone. SUBJECTIVE: This is a 38 year old that is here today for Above Complaints.. [facility] URI symptoms. Prescribed Augmentin. Taking and tolerating asprescribed without side effects. Ears are popping some using Flonase. Has some sinus headaches. Using his inhaler more than normal. About twice a day no night time awakenings. Reports wheezing at times. Admits to mild SOB at times. Denies fever, sore throat, dyspnea, orthopnea or chest pain PAST MEDICAL HISTORY Diagnosis Date Acute right-sided back pain with sciatica Arthritis Asthma Awareness under anesthesia Dysthymia 02/03/2022 Eosinophilic esophagitis THA (generalized anxiety disorder) Generalized anxiety disorder Obstructive sleep apnea Palpitations Seasonal allergies Well adult exam ALLERGIES Bee Sting and Dermabond [2-Octyl Cyanoacrylate] MEDICATIONS Current Outpatient Medications Medication Sig amoxicillin-clavulanic acid (AUGMENTIN) 875-125 mg per tablet Take 1 tablet by mouth twice daily for 7 days. budesonide (PULMICORT) 0.5 mg/2 mL nebulizer solution For eosinophilic esophagitis. Mix 4 respules with 5 packs of Splenda and swallow daily. Do not eat or drink for 30 minutes after budesonide (PULMICORT) 0.5 mg/2 mL nebulizer solution For eosinophilic esophagitis. Mix 4 respules with 5 packs of Splenda and swallow daily. Do not eat or drink for 30 minutes after omeprazole (PRILOSEC) 40 mg capsule Take 1 capsule by mouth once daily. benzonatate (TESSALON PERLES) 100 mg capsule Take 1 capsule by mouth three times daily as needed for cough. fluticasone (FLONASE) 50 mcg/actuation nasal spray Use 1 [place] in each nostril daily at bedtime. allopurinol (ZYLOPRIM) 100 mg tablet Take 1 tablet by mouth once daily. For gout. meloxicam (MOBIC) 15 mg tablet Take 1 tablet by mouth once daily. With food. (Patient taking differently: Take 15 mg by mouth once daily. With food. As needed) cyclobenzaprine (FLEXERIL) 10 mg tablet Take 1 tablet by mouth three times daily as needed for muscle spasm. montelukast (SINGULAIR) 10 mg tablet Take 1 tablet by mouth daily at bedtime. hyoscyamine (LEVSIN) 0.125 mg tablet Take 1 tablet by mouth every 4 hours as needed (abdominal cramping, abdominal pain). sertraline (ZOLOFT) 25 mg tablet Take 1 tablet by mouth once daily. At bedtime busPIRone (BUSPAR) 5 mg tablet Take 1 tablet by mouth twice daily as needed (anxiety attack). amino acids (BCAA ORAL) Take by mouth once daily. whey protein, concent-isolate (WHEY PROTEIN, CONC-ISOLATE ORAL) Take by mouth once daily. albuterol HFA (PROAIR HFA) 90 mcg/actuation inhaler Inhale 2 Puffs as instructed every 4 hours as needed. cetirizine (ZYRTEC) 10 mg tablet Take 10 mg by mouth once daily. No current facility-administered medications for this visit. Medications and allergies reviewed by this provider. SOCIAL HISTORY Social History Tobacco Use Smoking status: Never Smokeless tobacco: Never Vaping Use Vaping Use: Never used Substance Use Topics Alcohol use: Yes Alcohol/week: 5.0 standard drinks Types: 3 Standard drinks or equivalent, 2 Cans of Beer (12oz) per week Comment: occasional alcohol use Drug use: No REVIEW OF SYSTEMS All other reviewed and negative other than HPI. OBJECTIVE: BP 114/84 Pulse 87 Temp 36.6 C (97.9 F) Resp 18 Wt 114.1 kg (251 lb 9.6 oz) SpO2 99% BMI 33.19 kg/m . Vital signs reviewed by this provider. APPEARANCE Well appearing, alert, in no acute distress, well-hydrated, well nourished. EYES conjunctiva and sclera normal. EARS External ears normal, canals clear NOSE/SINUS Nares normal. Septum midline. Mucosa normal.TTP over frontal sinuses THROAT normal, no erythema NECK Supple, no adenopathy; thyroid symmetric, normal size, no bruits HEART RRR with normal S1 and S2, no murmurs, no gallops, no JVD appreciated LUNG clear to auscultation. No wheezes, rhonchi or rales. Able to speak in full sentences without difficulty SKIN Skin color, texture, turgor normal, no suspicious rashes or lesions to exposed skin HEPATITIS B(1 of 3 - 3-dose series) Never done COVID-19 VACCINE(1) Never done HIV SCREENING Never done INFLUENZA(Season Ended) due on 04/29/2023 LIPID SCREEN due on 10/31/2025 DTAP,TDAP,TD(2 - Td or Tdap) due on 09/17/2029 COLORECTAL CANCER SCREENING due on 01/21/2031 HEPATITIS C SCREENING Completed ASSESSMENT/PLAN: 1. Mild intermittent asthma, uncomplicated - ICD9: 493.90, ICD10: J45.20 (primary diagnosis) - no red flag symptoms or exam finding - red flag symptoms discussed, verbalizes understanding - Mild intermittent asthma may be starting with exacerbation - Continue current medications - Exacerbation treatment of prednisone burst - Avoidance of triggers recommended - PREDNISONE 20 MG TABLET - follow-up with PCP if not improving to ER with red flag symptoms 2. Acute non-recurrent maxillary sinusitis - ICD9: 461.0, ICD10: J01.00 - continue current antibiotic - follow-up with PCP if symptoms fail to improve Sweetie Tyson APRN.EMERY GRINDER Prescription instructions reviewed with patient as applicable. Patient advised if symptoms do not improve or if symptoms worsen sooner, to contact their primary care physician. Potential red flag symptoms discussed with the patient. Reviewed appropriate action plan to take if red flag symptoms occur. Patient agreeable to treatment plan. I spent a total of 25 minutes on the date of the service which included preparing to see the patient, [id number] patient care, completing clinical documentation, obtaining and/or reviewing separately obtained history, performing a medically appropriate examination, counseling and educating the pat ient/family/caregiver, and ordering medications, tests, or procedures. documented in this encounterRegency [facility]23 History of Present illness Narrative* Isis Petty APRN.KVNG - 01/31/2023 10:32 AM EDT This note was created using Marqueeriter. Subjective Carl Gross is a 38 year old male. 38 year old male with PMH asthma and GERD presents for illness. Acute onset 2 weeks ago +sinus pressure +nasal congestion +post nasal drip +ear fullness. +cough. Denies SOB or dyspnea Denies abdominal pain. Denies N/V/D Denies fever or chills. Has used allergy medicine and Flonase Denies tobacco usage . The history is provided by the patient. No english language arts teacher was used. Sinus Problem This is a new problem. The current episode started 1 to 4 weeks ago. The problem occurs constantly.The problem has been gradually worsening. Associated symptoms include chills, congestion, coughing and headaches. Pertinent negatives include no abdominal pain, anorexia, arthralgias, change in bowelhabit, chest pain, diaphoresis, fatigue, fever, joint swelling, myalgias, nausea, neck pain, numbness, rash, sore throat, swollen glands, urinary symptoms, vertigo, visual change, vomiting or weakness. Nothing aggravates the symptoms. Treatments tried: allergy medicine and Flonase. The treatment provided mild relief. PAST MEDICAL HISTORY Diagnosis Date Acute right-sided back pain with sciatica Arthritis Asthma Awareness under anesthesia Dysthymia 02/03/2022 Eosinophilic esophagitis THA (generalized anxiety disorder) Generalized anxiety disorder Obstructive sleep apnea Palpitations Seasonal allergies Well adult exam PAST SURGICAL HISTORY Procedure Laterality Date ABDOMINAL SURGERY HX APPENDECTOMY HX 2020 COLONOSCOPY 01/21/2021 EGD 10/22/2020 Active esophagitis with increased intraepithelial eosinophils,Inflamed gastric cardiac type mucosa with reactive epithelial changes and focal pancreatic heterotopia, Active esophagitis with increasedintraepithelial eosinophils, small mass lesion was found at the gastroesophageal junction. EGD 01/21/2021 PAST SURGICAL HISTORY OF 02/2012 left foot surgery PAST SURGICAL HISTORY OF 2009 repair tendon right hand PAST SURGICAL HISTORY OF 05/2018 Throat SINUS SURGERY HX 2016 ALLERGIES Bee Sting and Dermabond [2-Octyl Cyanoacrylate] MEDICATIONS budesonide (PULMICORT) 0.5 mg/2 mL nebulizer solution For eosinophilic esophagitis. Mix 4 respules with 5 packs of Splenda and swallow daily. Do not eat or drink for 30 minutes after budesonide (PULMICORT) 0.5 mg/2 mL nebulizer solution For eosinophilic esophagitis. Mix 4 respules with 5 packs of Splenda and swallow daily. Do not eat or drink for 30 minutes after omeprazole (PRILOSEC) 40 mg capsule Take 1 capsule by mouth once daily. fluticasone (FLONASE) 50 mcg/actuation nasal spray Use 1 [place] in each nostril daily at bedtime. allopurinol (ZYLOPRIM) 100 mg tablet Take 1 tablet by mouth once daily. For gout. meloxicam (MOBIC) 15 mg tablet Take 1 tablet by mouth once daily. With food. (Patient taking differently: Take 15 mg by mouth once daily. With food. As needed) cyclobenzaprine (FLEXERIL) 10 mg tablet Take 1 tablet by mouth three times daily as needed for muscle spasm. montelukast (SINGULAIR) 10 mg tablet Take 1 tablet by mouth daily at bedtime. hyoscyamine (LEVSIN) 0.125 mg tablet Take 1 tablet by mouth every 4 hours as needed (abdominal cramping, abdominal pain). sertraline (ZOLOFT) 25 mg tablet Take 1 tablet by mouth once daily. At bedtime busPIRone (BUSPAR) 5 mg tablet Take 1 tablet by mouth twice daily as needed (anxiety attack). amino acids (BCAA ORAL) Take by mouth once daily. whey protein, concent-isolate (WHEY PROTEIN, CONC-ISOLATE ORAL) Take by mouth once daily. albuterol HFA (PROAIR HFA) 90 mcg/actuation inhaler Inhale 2 Puffs as instructed every 4 hours as needed. cetirizine (ZYRTEC) 10 mg tablet Take 10 mg by mouth once daily. amoxicillin-clavulanic acid (AUGMENTIN) 875-125 mg per tablet Take 1 tablet by mouth twice daily for 7 days. benzonatate (TESSALON PERLES) 100 mg capsule Take 1 capsule by mouth three times daily as needed for cough. FAMILY HISTORY Problem Relation Age of Onset Cancer Mother thyroid Cancer Father thyroid? Cancer Maternal Grandmother thyroid Hypertension Maternal Grandmother Hypertension Maternal Grandfather Social History Tobacco Use Smoking status: Never Smokeless tobacco: Never Vaping Use Vaping Use: Never used Substance Use Topics Alcohol use: Yes Alcohol/week: 5.0 standard drinks Types: 3 Standard drinks or equivalent, 2 Cans of Beer (12oz) per week Comment: occasional alcohol use Drug use: No Review of Systems Constitutional: Positive for chills. Negative for diaphoresis, fatigue and fever. HENT: Positive for congestion, postnasal drip, sinus pressure and sinus pain. Negative for ear discharge and sore throat. Eyes: Negative for pain, discharge, redness and itching. Respiratory: Positive for cough. Negative for apnea, choking and chest tightness. Cardiovascular: Negative for chest pain, palpitations and leg swelling. Gastrointestinal: Negative for abdominal pain, anorexia, change in bowel habit, nausea and vomiting. Musculoskeletal: Negative for arthralgias, joint swelling, myalgias and neck pain. Skin: Negative for color change, pallor and rash. Allergic/Immunologic: Positive for environmental allergies. Negative for food allergies and immunocompromised state. Neurological: Positive for headaches. Negative for vertigo, weakness and numbness. Hematological: Negative for adenopathy. Does not bruise/bleed easily. Psychiatric/Behavioral: Negative for agitation and behavioral problems. Objective BP 128/82 Pulse 78 Temp 36.4 C (97.5 F) Resp 18 Wt 115.2 kg (254 lb) SpO2 96% BMI 33.51kg/m Physical Exam Vitals and nursing note reviewed. Constitutional: General: He is not in acute distress. Appearance: Normal appearance. He is not ill-appearing, toxic-appearing or diaphoretic. HENT: Head: Normocephalic and atraumatic. Comments: +frontal sinus pressure +maxillary sinus pressure Right Ear: External ear normal. Left Ear: External ear normal. Ears: Comments: Moderate serous fluid noted. Nose: Nose normal. No congestion or rhinorrhea. Mouth/Throat: Mouth: Mucous membranes are moist. Pharynx: Oropharynx is clear. No oropharyngeal exudate or posterior oropharyngeal erythema. Comments: +post nasal drainage Eyes: General: Right eye: No discharge. Left eye: No discharge. Extraocular Movements: Extraocular movements intact. Conjunctiva/sclera: Conjunctivae normal. Pupils: Pupils are equal, round, and reactive to light. Cardiovascular: Rate and Rhythm: Normal rate and regular rhythm. Pulses: Normal pulses. Heart sounds: Normal heart sounds. No murmur heard. No friction rub. No gallop. Pulmonary: Effort: Pulmonary effort is normal. No respiratory distress. Breath sounds: Normal breath sounds. No stridor. No wheezing, rhonchi or rales. Chest: Chest wall: No tenderness. Abdominal: General: Abdomen is flat. There is no distension. Palpations: Abdomen is soft. There is no mass. Tenderness: There is no abdominal tenderness. There is no guarding or rebound. Hernia: No hernia is present. Musculoskeletal: General: No swelling, tenderness, deformity or signs of injury. Normal range of motion. Cervical back: Normal range of motion and neck supple. No rigidity or tenderness. Right lower leg: No edema. Left lower leg: No edema. Lymphadenopathy: Cervical: No cervical adenopathy. Skin: General: Skin is warm and dry. Capillary Refill: Capillary refill takes less than 2 seconds. Coloration: Skin is not jaundiced or pale. Findings: No bruising, lesion or rash. Neurological: General: No focal deficit present. Mental Status: He is alert and oriented to person, place, and time. Cranial Nerves: No cranial nerve deficit. Sensory: No sensory deficit. Motor: No weakness. Coordination: Coordination normal. Gait: Gait normal. Deep Tendon Reflexes: Reflexes normal. Psychiatric: Mood and Affect: Mood normal. Behavior: Behavior normal. Thought Content: Thought content normal. Assessment and Plan ASSESSMENT/PLAN: 1. Rhinosinusitis - ICD9: 473.9, ICD10: J31.0, J32.9 - Will begin treatment with as per antibiotic as written, see orders - The patient should also be given OTC cough and cold meds as needed, warm salt water gargles, throat lozenges and/or OTC throat spray as needed, and nasal saline gtts and suction prn for the first 5-7 days of treatment. - Supportive care with plenty of fluids, rest, and analgesia prn. - Follow up in 3-5 days if symptoms persist or worsen. Isis Petty APRN.CNP documented in this encounterRegency Hospital [facility]04-20-2023 Miscellaneous Notes* Telephone Encounter - Christy Tee LPN - 12/16/2022 8:27 AM EDT Selin spicer [facility] patient employer calling asking for copy of his return to work letter faxed to [phone]. Aware letter will not have signature from provider. Printed letter and faxed as requested. documented in this encounterRegency Hospital [facility]04-17-2023 History of Present illness Narrative* Sherry Sharif RT(R) - 12/13/2022 12:20 PM EDT Radiology Service Progress Note PATIENT NAME: Carl Gross DATE OF SERVICE: December 13, 2022 TIME: 12:23 PM PATIENT IDENTITY VERIFICATION COMPLETED USING TWO (2) IDENTIFIERS: Name and Date of confirmedby patient verbally. FALL SCREENING: Has the patient had 2 falls in the last year or 1 fall with injury or currently using an Ambulatory Assistive Device (Walker, Cane, Wheelchair, Crutches, etc.)? No PATIENT GENDER DATA: Male PATIENT RELEVANT IMPLANT DATA REVIEWED: Yes RADIOLOGY DEPARTMENT: General X-ray: Exam(s) Completed: Lower Extremity X- Ray(s): Ankle, Left and Wt. Bearing PERIPHERAL IV DATA: Not applicable SIGNED BY: RT Annalee(R) December 13, 2022 12:23 PM documented in this encounterRegency Hospital [facility]04-17-2023 History of Present illness Narrative* Shelly Broderick APRN.CNP - 12/13/2022 11:40 AM EDT Chief Complaint Patient presents with: Sprain of left ankle HPI Carl Gross is a 37 year old male who presents here today for Above Complaints. Carl is an established patient of Dr. Horton, DO and myself. Seen in ER 12/05 and followed-up with me on 12/06 d/t L ankle sprain. Per my note: 1. Sprain of ligament of left ankle, subsequent encounter - ICD9: V58.89, 845.00, ICD10: S93.402D (primary diagnosis) Agree with ER dx of likely ankle sprain. Continue with crutches until able to bear weight without difficulty -- likely 1- 3 more days. Continue with air-cast x 2 weeks to decrease mobility. Naproxen as needed BID --- do not take with motrin or other NSAIDs, pt aware and understands. Given work note of limitations and time off x 3-5 days until weight bearing without difficulty. Continue to wear Aircast. - NAPROXEN 500 MG TABLET 2. Injury of left ankle, subsequent encounter - ICD9: V58.89, 959.7, ICD10: S99.912D See above. - NAPROXEN 500 MG TABLET Currently today... Pt reports he has not been back to work d/t off and on pain in ankle. Plans on returning to work tomorrow. Pt reports pain returned yesterday. -03/07 pain yesterday. Not as painful as first incident but theworst it has felt during this recovery period. Has compression brace on ankle. Weight bearing without difficulty. Soreness to joint at end of the day. X-ray completed at [facility] on 12/05 --- pt wondering if repeat x-ray can be done to make sure this is nota delayed fracture. Naproxen does help but makes his sleepy so mainly only taking at night. Workers comp is not contributing. Past medical history, appointments, medications, allergies reviewed. Previous Medical History PAST MEDICAL HISTORY Diagnosis Date Acute right-sided back pain with sciatica Arthritis Asthma Awareness under anesthesia Dysthymia 02/03/2022 Eosinophilic esophagitis THA (generalized anxiety disorder) Generalized anxiety disorder Obstructive sleep apnea Palpitations Seasonal allergies Well adult exam Previous Surgical History PAST SURGICAL HISTORY Procedure Laterality Date ABDOMINAL SURGERY HX APPENDECTOMY HX 2020 COLONOSCOPY 01/21/2021 EGD 10/22/2020 Active esophagitis with increased intraepithelial eosinophils,Inflamed gastric cardiac type mucosa with reactive epithelial changes and focal pancreatic heterotopia, Active esophagitis with increasedintraepithelial eosinophils, small mass lesion was found at the gastroesophageal junction. EGD 01/21/2021 PAST SURGICAL HISTORY OF 02/2012 left foot surgery PAST SURGICAL HISTORY OF 2009 repair tendon right hand PAST SURGICAL HISTORY OF 05/2018 Throat SINUS SURGERY HX 2016 Family History FAMILY HISTORY Problem Relation Age of Onset Cancer Mother thyroid Cancer Father thyroid? Cancer Maternal Grandmother thyroid Hypertension Maternal Grandmother Hypertension Maternal Grandfather Patient Allergies ALLERGIES Allergen Reactions Bee Sting Swelling Local swelling and shortness of breath Dermabond [2-Octyl * Rash Current Medications Current Outpatient Medications on File Prior to Visit Medication Sig naproxen (NAPROSYN) 500 mg tablet Take 1 tablet by mouth twice daily as needed (for pain/inflammation). Take with food. omeprazole (PRILOSEC) 40 mg capsule Take 1 capsule by mouth once daily. fluticasone (FLONASE) 50 mcg/actuation nasal spray Use 1 [place] in each nostril daily at bedtime. allopurinol (ZYLOPRIM) 100 mg tablet Take 1 tablet by mouth once daily. For gout. meloxicam (MOBIC) 15 mg tablet Take 1 tablet by mouth once daily. With food. (Patient taking differently: Take 15 mg by mouth once daily. With food. As needed) cyclobenzaprine (FLEXERIL) 10 mg tablet Take 1 tablet by mouth three times daily as needed for muscle spasm. montelukast (SINGULAIR) 10 mg tablet Take 1 tablet by mouth daily at bedtime. hyoscyamine (LEVSIN) 0.125 mg tablet Take 1 tablet by mouth every 4 hours as needed (abdominal cramping, abdominal pain). sertraline (ZOLOFT) 25 mg tablet Take 1 tablet by mouth once daily. At bedtime busPIRone (BUSPAR) 5 mg tablet Take 1 tablet by mouth twice daily as needed (anxiety attack). amino acids (BCAA ORAL) Take by mouth once daily. albuterol HFA (PROAIR HFA) 90 mcg/actuation inhaler Inhale 2 Puffs as instructed every 4 hours as needed. cetirizine (ZYRTEC) 10 mg tablet Take 10 mg by mouth once daily. budesonide (PULMICORT) 0.5 mg/2 mL nebulizer solution For eosinophilic esophagitis. Mix 4 respules with 5 packs of Splenda and swallow daily. Do not eat or drink for 30 minutes after budesonide (PULMICORT) 0.5 mg/2 mL nebulizer solution For eosinophilic esophagitis. Mix 4 respules with 5 packs of Splenda and swallow daily. Do not eat or drink for 30 minutes after benzonatate (TESSALON PERLES) 100 mg capsule Take 1 capsule by mouth three times daily as needed for cough. whey protein, concent-isolate (WHEY PROTEIN, CONC-ISOLATE ORAL) Take by mouth once daily. No current facility-administered medications on file prior to visit. Social History Social History Tobacco Use Smoking status: Never Smokeless tobacco: Never Vaping Use Vaping Use: Never used Substance Use Topics Alcohol use: Yes Alcohol/week: 5.0 standard drinks Types: 3 Standard drinks or equivalent, 2 Cans of Beer (12oz) per week Comment: occasional alcohol use Drug use: No REVIEW OF SYSTEMS: as above Reviewed relevant PMHx, PSHx, Social Hx, current medications and allergies. Review of Symptoms REVIEW OF SYSTEMS See HPI. EXAM: BP 140/84 (BP Site: Left Arm, BP Position: Sitting, BP Cuff Size: Large Adult) Pulse 92 Resp 12 Ht 185.4 cm (6' 1) Wt 119.3 kg (263 lb) SpO2 97% BMI 34.70 kg/m General Appearance: Well appearing, alert, in no acute distress, well-hydrated, well nourished.. Skin: Skin color, texture, turgor normal, no suspicious rashes or lesions. Head: Normocephalic, no masses, lesions, tenderness or abnormalities. Lungs: Lungs clear to auscultation. No wheezing, rhonchi, rales.. Heart: RRR without murmur, gallop, or rubs. No ectopy. Extremities: No deformities, edema, skin discoloration, clubbing or cyanosis. Good capillary refill. . Peripheral Pulses: Normal. Neurologic: Gait normal. Reflexes normal and symmetric. Sensation grossly intact.. Health Maintenance List HEPATITIS B(1 of 3 - 3-dose series) Never done COVID-19 VACCINE(1) Never done HIV SCREENING Never done INFLUENZA(Season Ended) due on 04/29/2023 LIPID SCREEN due on 10/31/2025 DTAP,TDAP,TD(2 - Td or Tdap) due on 09/17/2029 COLORECTAL CANCER SCREENING due on 01/21/2031 HEPATITIS C SCREENING Completed ASSESSMENT/PLAN: 1. Injury of left ankle, subsequent encounter - ICD9: V58.89, 959.7, ICD10: S99.912D (primary diagnosis) Repeat x-ray of ankle d/t continued discomfort. Continue naproxen as needed. Continue to wear brace on ankle routinely. Continue to weight bare. Discussed R.I.C.E. therapy. Letter for work given today. Will fill out [facility] paperwork for the week missed of work d/t injury. - XR ANKLE GENERAL 3V AP/LAT/OBL LEFT 2. Sprain of ligament of left ankle, subsequent encounter - ICD9: V58.89, 845.00, ICD10: S93.402D See above. - XR ANKLE GENERAL 3V AP/LAT/OBL LEFT RTO as scheduled, sooner if needed. Prescription instructions reviewed with patient as applicable. Potential red flag symptoms discussed with the patient. Reviewed appropriate action plan to take if red flag symptoms occur. Patient agreeable to treatment plan. Shelly Dejesus APRN.KVNG [address] [place] [address] documented in this encounterRegency Hospital [facility]04-10-2023 History of Present illness Narrative* Shelly Broderick APRN.CNP - 12/06/2022 7:40 AM EDT Chief Complaint Patient presents with: ED Follow-up HPI Carl Gross is a 37 year old male who presents here today for Above Complaints.. Carl is an established patient of Dr. Clifford DO. He is a new patient to me today. Concerns today.. ER visit yesterday to [facility] d/t LLE (L ankle) pain/injury. L ankle x-ray was normal. Given Aircast and NSAIDs for possible ankle sprain. BP while in ER was very elevated -- 173/110. Today in office... Pt reports ankle feeling better today. Wearing aircast 21/03 besides bathing/showering. Took one dose of motrin in ER. Does give some relief. Was not given an prescription to go home with. Pt in ER was unaware of cause of injury. After more thought, pt believes injury was done at work. He is in the process of reporting this injury to employer. Pt arrived to visit with crutches. Pt does report ability to bear some weight on ankle today vs yesterday he was unable to at all. BP --- BP elevated in ER yesterday, also elevated when in ER about 1 month ago for calf pain. No prior dx of HTN. No medication regimen for BP. Last 14 Encounter BP Readings: Date: BP: 12/06/2022 118/74 11/02/2022 105/54 11/02/2022 95/52 05/18/2022 132/68 05/18/2022 118/78 03/08/2022 112/74 02/03/2022 110/70 01/12/2022 124/82 11/18/2021 130/82 09/07/2021 122/86 07/27/2021 118/84 06/09/2021 129/78 05/25/2021 130/80 04/27/2021 118/94 Past medical history, appointments, medications, allergies reviewed. Previous Medical History PAST MEDICAL HISTORY Diagnosis Date Arthritis Asthma Awareness under anesthesia Dysthymia 02/03/2022 Obstructive sleep apnea Palpitations Seasonal allergies Well adult exam Previous Surgical History PAST SURGICAL HISTORY Procedure Laterality Date ABDOMINAL SURGERY HX APPENDECTOMY HX 2020 COLONOSCOPY 01/21/2021 EGD 10/22/2020 Active esophagitis with increased intraepithelial eosinophils,Inflamed gastric cardiac type mucosa with reactive epithelial changes and focal pancreatic heterotopia, Active esophagitis with increasedintraepithelial eosinophils, small mass lesion was found at the gastroesophageal junction. EGD 01/21/2021 PAST SURGICAL HISTORY OF 02/2012 left foot surgery PAST SURGICAL HISTORY OF 2009 repair tendon right hand PAST SURGICAL HISTORY OF 05/2018 Throat SINUS SURGERY HX 2015 Family History FAMILY HISTORY Problem Relation Age of Onset Cancer Mother thyroid Cancer Father thyroid? Cancer Maternal Grandmother thyroid Hypertension Maternal Grandmother Hypertension Maternal Grandfather Patient Allergies ALLERGIES Allergen Reactions Bee Sting Swelling Local swelling and shortness of breath Dermabond [2-Octyl * Rash Current Medications Current Outpatient Medications on File Prior to Visit Medication Sig budesonide (PULMICORT) 0.5 mg/2 mL nebulizer solution For eosinophilic esophagitis. Mix 4 respules with 5 packs of Splenda and swallow daily. Do not eat or drink for 30 minutes after omeprazole (PRILOSEC) 40 mg capsule Take 1 capsule by mouth once daily. budesonide (PULMICORT) 0.5 mg/2 mL nebulizer solution For eosinophilic esophagitis. Mix 4 respules with 5 packs of Splenda and swallow daily. Do not eat or drink for 30 minutes after omeprazole (PRILOSEC) 40 mg capsule Take 1 capsule by mouth once daily. benzonatate (TESSALON PERLES) 100 mg capsule Take 1 capsule by mouth three times daily as needed for cough. fluticasone (FLONASE) 50 mcg/actuation nasal spray Use 1 [place] in each nostril daily at bedtime. allopurinol (ZYLOPRIM) 100 mg tablet Take 1 tablet by mouth once daily. For gout. meloxicam (MOBIC) 15 mg tablet Take 1 tablet by mouth once daily. With food. cyclobenzaprine (FLEXERIL) 10 mg tablet Take 1 tablet by mouth three times daily as needed for muscle spasm. montelukast (SINGULAIR) 10 mg tablet Take 1 tablet by mouth daily at bedtime. hyoscyamine (LEVSIN) 0.125 mg tablet Take 1 tablet by mouth every 4 hours as needed (abdominal cramping, abdominal pain). sertraline (ZOLOFT) 25 mg tablet Take 1 tablet by mouth once daily. At bedtime busPIRone (BUSPAR) 5 mg tablet Take 1 tablet by mouth twice daily as needed (anxiety attack). ondansetron orally disintegrating (ZOFRAN ODT) 4 mg disintegrating tablet Take 2 tablets by mouth every 8 hours as needed for nausea/vomiting. budesonide (PULMICORT) 0.5 mg/2 mL nebulizer solution For eosinophilic esophagitis. Mix 4 respules with 5 packs of Splenda and swallow daily. Do not eat or drink for 30 minutes after predniSONE (DELTASONE) 20 mg tablet Take 2 tablets by mouth once daily. (Patient not taking: Reported on 02/02/2021 ) amino acids (BCAA ORAL) Take by mouth. whey protein, concent-isolate (WHEY PROTEIN, CONC-ISOLATE ORAL) Take by mouth. Creatinine, Bulk, 100 % powd sucralfate (CARAFATE) 1 gram tablet Take 1 tablet by mouth four times daily. TAKE 1 PO 30 MINUTES BEFORE MEALS AND AT BEDTIME. ondansetron orally disintegrating (ZOFRAN ODT) 4 mg disintegrating tablet Take 1 tablet by mouth every 8 hours as needed. albuterol HFA (PROAIR HFA) 90 mcg/actuation inhaler Inhale 2 Puffs as instructed every 4 hours as needed. cetirizine (ZYRTEC) 10 mg tablet Take 10 mg by mouth once daily. No current facility-administered medications on file prior to visit. Social History Social History Tobacco Use Smoking status: Never Smokeless tobacco: Never Vaping Use Vaping Use: Never used Substance Use Topics Alcohol use: Yes Alcohol/week: 5.0 standard drinks Types: 3 Standard drinks or equivalent, 2 Cans of Beer (12oz) per week Comment: occasional alcohol use Drug use: No REVIEW OF SYSTEMS: as above Reviewed relevant PMHx, PSHx, Social Hx, current medications and allergies. Review of Symptoms REVIEW OF SYSTEMS See HPI. EXAM: BP 118/74 Pulse 75 Resp 16 Ht 185.4 cm (6' 1) Wt 116.1 kg (256 lb) BMI 33.78 kg/m General Appearance: Well appearing, alert, in no acute distress, well-hydrated, well nourished.. Skin: Skin color, texture, turgor normal, no suspicious rashes or lesions. Head: Normocephalic, no masses, lesions, tenderness or abnormalities. Extremities: No deformities, edema, skin discoloration, clubbing or cyanosis. Good capillary refill. L ankle remains mildly swollen. No redness or warmth to joint. Full active ROM with some discomfort. Musculoskeletal: No joint swelling, deformity, or tenderness. Peripheral Pulses: Normal. Neurologic: Reflexes normal and symmetric. Sensation grossly intact. Able to weight-bare on L anklewith mild discomfort, using crutches currently without difficulty. Health Maintenance List HEPATITIS B(1 of 3 - 3-dose series) Never done COVID-19 VACCINE(1) Never done HIV SCREENING Never done INFLUENZA(Season Ended) due on 04/29/2023 LIPID SCREEN due on 10/31/2025 DTAP,TDAP,TD(2 - Td or Tdap) due on 09/17/2029 COLORECTAL CANCER SCREENING due on 01/21/2031 HEPATITIS C SCREENING Completed ASSESSMENT/PLAN: 1. Sprain of ligament of left ankle, subsequent encounter - ICD9: V58.89, 845.00, ICD10: S93.402D (primary diagnosis) Agree with ER dx of likely ankle sprain. Continue with crutches until able to bear weight without difficulty -- likely 1- 3 more days. Continue with air-cast x 2 weeks to decrease mobility. Naproxen as needed BID --- do not take with motrin or other NSAIDs, pt aware and understands. Given work note of limitations and time off x 3-5 days until weight bearing without difficulty. Continue to wear Aircast. - NAPROXEN 500 MG TABLET 2. Injury of left ankle, subsequent encounter - ICD9: V58.89, 959.7, ICD10: S99.912D See above. - NAPROXEN 500 MG TABLET 3. Elevated BP without diagnosis of hypertension - ICD9: 796.2, ICD10: R03.0 Elevated in ER likely d/t pain and stress. BP today in office and compared to priors is WNL and at goal for age. Discussed getting BP cuff OTC if pt concerned and checking periodically -- Gave pt parameters of when to make appointment based on BP values. RTO if symptoms do not improve. Prescription instructions reviewed with patient as applicable. Potential red flag symptoms discussed with the patient. Reviewed appropriate action plan to take if red flag symptoms occur. Patient agreeable to treatment plan. Shelly Dejesus APRN.CNP [address] [place] [address] documented in this encounterReg[facility] Miscellaneous Notes* Telephone Encounter - Tuan Puentes APRN.CNP - 12/02/2022 5:33 PM EDT Agree with below. Tuan Puentes APRN.CNP * Telephone Encounter - Magnolia Holiday - 11/19/2022 7:42 AM EDT Advised to schedule appt Magnolia Arreguin documented in this encounterReg[facility]-12-[facility]23 Discharge summary Author Reanna Cheung [facility] November 07, 2022 8:34pm Note Date/Time November 07, 2022 7:1 9pm [facility] Medical Records Department [address] [place] [address] Emergency Department Summary 11/07/22 MR#: [id number] Acct: [id number] Name: CARL GROSS Rep #:[id number] : 1985 37 From: Reanna LARSON PCP: Dr. Simba Horton, DO Status:RE G ER Location: ED HPI <NEO Diehl - Last Filed: 11/07/22 20:34> History of Present Illness Chief Complaint: Lower Extremity Injury Narrative Narrative: Patient presenting today with pain in his right lower extremity that started around 12 PM this afternoon and has been constant. The pain radiates from the knee down to the ankle and he is unable to tell me if it is more so on the ventral or dorsal aspect of his leg. He denies any injury to his leg, previous history of blood clots, use of blood thinners, tobacco use, recent surgeries or procedures, recent travel, chest pain, shortness of breath. He states that his mom has a history of blood clots. [facility] <NEO Diehl - Last Filed: 11/07/22 20:34> [facility] Medical History Asthma Gout Home Medications omeprazole 40 mg capsule,delayed release 40 mg PO DAILY 04/13/21 [History Last Taken Unknown] Allergy/AdvReac Type Severity Reaction Status Date / Time bee venom protein (honey bee) Allergy Anaphylaxis Verified 11/07/22 18:17 SURGICAL GLUE Allergy Rash Uncoded 05/04/21 10:39 Surgical History History of esophagogastroduodenoscopy (EGD) Social History Smoking Status: Never smoker alcohol intake: never ROS <NEO Diehl - Last Filed: 11/07/22 20:34> ROS ED Constitutional Constitutional ED: Denies chills, fever(s) or sweats Eyes Eyes: Denies blurry vision or diplopia Cardiovascular Cardiovascular: Denies chest pain or palpitations Respiratory/Chest Respiratory/Chest: Denies cough, dyspnea, tachypnea or wheezing Gastrointestinal Gastrointestinal: Denies abdominal pain, nausea or vomiting Musculoskeletal Musculoskeletal: Reports arthralgias and myalgias; Denies back pain or neck pain Integumentary Denies abscess, Abrasions or rash Neurologic Neurologic: Denies confusion, dizziness or paresthesias Psychiatric Psychiatric: Denies anxiety, depression, suicidal ideation or suicidal thoughts EXAM <NEO Diehl - Last Filed: 11/07/22 20:34> Physical Exam Const Vital Signs: 11/07/22 18:15 Temperature 98.2 F Temperature Source Temporal Pulse Rate 100 Respiratory Rate 18 Blood Pressure 174/94 H Blood Pressure Mean 120 Pulse Ox 100 Oxygen Delivery Method Room Air Positive well nourished, well developed and no apparent distress General Appearance ED: well developed HEENT Reports normocephalic and head/scalp atraumatic Mouth ED: Yes moist mucous membranes normal Eyes PERRL and EOMs intact bilaterally Neck full ROM and supple Chest Wall inspection of chest normal Resp normal respiratory effort and clear to auscultation bilaterally Cardio regular rate and regular rhythm GI soft to palpation, non-tender, non-distended and no masses Back/Spine normal ROM and normal to inspection Extremity normal to inspection and full ROM Extremity Narrative: Patient reports some tenderness to palpation to his right calf. No tenderness to palpation along the ventral aspect of patient's right lower leg. DP pulses 2+ and equal bilaterally. Good capillary refill, neurovascularly intact, full range of motion in the knee, ankle, and toes. No erythema or edema in the rightleg. Neuro oriented x3, CN's II-XII intact bilaterally, moves all extremities, no focal motor deficits and no sensory deficits noted Sensorium / Orientation: awake and alert Psych mental status grossly normal and thought process normal Skin no rashes or lesions noted and no wounds <Dr. Fabrice Mcglil MD - Last Filed: 11/07/22 20:28> Physical Exam Const Vital Signs: 11/07/22 18:15 Temperature 98.2 F Temperature Source Temporal Pulse Rate 100 Respiratory Rate 18 Blood Pressure 174/94 H Blood Pressure Mean 120 Pulse Ox 100 Oxygen Delivery Method Room Air [facility] <NEO Diehl - Last Filed: 11/07/22 20:34> [facility] Narrative Medical decision making narrative: Patient presenting with pain in his right lower extremity that extends from his knee down to his ankle. This started randomly around 12 PM this afternoon. He denies any injury to the right lower extremity. Patient is a family history of blood clots but no personal history. We will obtain a D-dimer to rule out DVT. The D-dimer is WNL. I do not feel that any imaging of patient's right lower extremity is necessary as patient had no injury to his leg and does not have anybony tenderness. Patient was given Toradol for pain. He will be discharged home in stable condition and is to follow-up with his PCP. He has been given return instructions. He is comfortable with plan. Lab Data Labs: Laboratory Results - last 24 hr 11/07/22 19:30 D-Dimer Quant (PE/DVT) < 0.27 L <Dr. Fabrice Mcgill MD - Last Filed: 11/07/22 20:28> [facility] Lab Data Attestation: I reviewed the patient's lab results. Labs: Laboratory Results - last 24 hr 11/07/22 19:30 D-Dimer Quant (PE/DVT) < 0.27 L Treatment and Re-Evaluation Narrative: Seen and evaluated independently and in conjunction with physician trade sales assistant. Agree with notes above unless documented otherwise. Patient with spontaneous onset of pain in his right calf, hurts more to move, noswelling. Worried about a blood clot. Never had 1 before, no risk factors. On exam: Positive Nimesh, no swelling, no palpable cord, no varicosities. Normalskin, all compartments soft. D-dimer negative, ruling out acute DVT since ultrasound was not available. Patient reassured, given a dose of Toradol discharged home with appropriate discharge instructions. Advised follow-up for repeat blood pressure check as an outpatient. Discharge Plan Triage Chief Complaint: Lower Extremity Injury ED Midlevel Provider: Reanna Cheung ED Provider: Fabrice Mcgill Dx/Rx/DC Orders Clinical Impression: Strain of right calf muscle, Episode of hypertension Instructions: Treating?Strains and Sprains Prescriptions: No Action omeprazole 40 mg Capsule,Delayed Release(Dr/Ec) 40 mg PO DAILY Primary Care Provider: Simba Horton Referrals: Simba Horton DO [Primary Care Provider] - As Needed Disposition Disposition: Home, Self Care What to do if you have Problems For any increased pain, shortness of breath, bleeding, nausea or vomiting, chestpain, or any unexpected problems, contact your Primary Care Provider. Call [facility] ([phone]) or report to the closest Emergency Room. Call 911 if necessary. 11/07/222033 <Electronically signed by Reanna LARSON> Cosigner Signature (if applicable): 11/07/222027 <Electronically signed by Fabrice Mcgill MD> CC: Dr. Simba Horton, ~ Signed [facility] Work Phone: [phone]) 605-308803-08-2023 Miscellaneous Notes* Telephone Encounter - Sakina Drake LPN - 11/03/2022 6:07 PM EST Patient phones requesting refills as follows: Requested Prescriptions Pending Prescriptions Disp Refills omeprazole (PRILOSEC) 40 mg capsule 30 capsule 3 Sig: Take 1 capsule by mouth once daily. STEPHON-02/03/22 Labs-01/12/22 NOV-none med filled 11/20/21 Please review and advise. Sakina Drake LPN documented in this encounterRegency [facility]03-07-2023 Nurse Note* Keke Colin RN - 11/02/2022 4:27 PM EST AMBULATORY PATIENT EDUCATION NOTE TOPIC: GI PROCEDURES: Esophagogastroduodenoscopy(EGD) for control of bleeding,dilation(any means),imaging,tube placement READINESS TO LEARN INSTRUCTION PROVIDED TO: Patient, readness to learn accessed prior to procedure COGNITIVE ABILITY: Alert and oriented PTED MOTIVATION TO LEARN: Eager Interested FAMILY SUPPORT: Moderate - Family present but overwhelmed IPATIENT LEARNS BEST BY: Individual Instruction Written Instruction - Hand-outs Verbal Instruction FACTORS AFFECTING LEARNING: None PHYSICAL LIMITATIONS AFFECTING LEARNING: None LEARNING RESPONSE METHOD OF INSTRUCTION: Individual instruction PATIENT / FAMILY RESPONSE: Verbalizes understanding of: WORSENING CONDITION- Signs and symptoms of aworsening condition that warrant a call to the physician FOLLOW-UP PLAN: Patient instructed to call with any further issues SUPPLEMENTAL MATERIAL: Procedure Discharge Instructions REFERRAL (RECOMMENDATION): None * Olesya Patricia RN - 11/02/2022 2:54 PM EST PRE OP LEARNING ASSESSMENT PROCEDURE/SURGERY: GI PROCEDURES: EGD READINESS TO LEARN COGNITIVE ABILITY: Alert and oriented MOTIVATION TO LEARN: Eager Interested FAMILY SUPPORT: High - Very involved in pt care PATIENT LEARNS BEST BY: Individual Instruction Written Instruction - Hand-outs Verbal Instruction FACTORS AFFECTING LEARNING: None PHYSICAL LIMITATIONS AFFECTING LEARNING: None Electronically Signed By: Olesya Patricia RN In Department: GASTROENTEROLOGY documented in this encounterReg[facility]02-09-2023 History of Present illness Narrative* Winsome Etienne APRN.CNP - 10/07/2022 2:04 PM EST This is an [facility] Care eVisit note for Carl Gross eVisit/Questionnaire reviewed The chief complaint for the visit - Patient presents with: Viral Syndrome Recommendations/Treatment plan - Rx as below plus self care. See My Chart Message to patient. Recommendation for follow up - PRN The following approved medication requests have been transmitted electronically. Requested Prescriptions Signed Prescriptions Disp Refills benzonatate (TESSALON PERLES) 100 mg capsule 21 capsule 0 Sig: Take 1 capsule by mouth three times daily as needed for cough. fluticasone (FLONASE) 50 mcg/actuation nasal spray 1 Each 0 Sig: Use 1 [place] in each nostril daily at bedtime. 10 mins to complete Winsome Etienne APRN.CNP documented in this encounterRegency Hospital [facility]01-23-2023 Miscellaneous Notes* Telephone Encounter - Dena Morelos LPN - 09/20/2022 11:54 AM EST Annual physical form was brought back by the med rec dept. 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 Will mail form to pts home address. documented in this encounterRegency Hospital [facility]11-01-2022 Instructions* Patient Instructions* Robi Hendrickson MD - 06/29/2022 3:18 PM EDT Restart budesonide - Mix 4 respules with 5 packs of Splenda and swallow daily. Do not eat or drink for 30 minutes after If you are interested in starting Dupixent injections, please let me know what your Insurance's In-Network specialty pharmacy is Schedule EGD with Dr. Da Silva in ~2 months - you can call [phone] to schedule Return to clinic in 4 months documented in this encounterReg[facility]11-01-2022 History of Present illness Narrative* Robi Hendrickson MD - 06/29/2022 2:56 PM EDT Images from the original note were not included. VIRTUAL VISIT FOLLOW UP I had a virtual visit with Mr. Gross today for follow up of eosinophilic esophagitis UPDATED HISTORY: --Has been undergoing EGD with dilation with Dr. Da Silva - initially helped, but most recent dilation didn't help as much --Still has dysphagia to solids like chicken, rice, bread - feels the bolus get held up in mid-chest --Currently only on omeprazole twice per day. Had been on budesonide, but ran out in the Spring. Not sure if budesonide was helping or not --Has tried diet modification avoiding eggs and breads PAST MEDICAL HISTORY Diagnosis Date Arthritis Awareness under anesthesia Dysthymia 02/03/2022 Obstructive sleep apnea Palpitations Seasonal allergies Well adult exam PAST SURGICAL HISTORY Procedure Laterality Date ABDOMINAL SURGERY HX COLONOSCOPY 01/21/2021 EGD 10/22/2020 Active esophagitis with increased intraepithelial eosinophils,Inflamed gastric cardiac type mucosa with reactive epithelial changes and focal pancreatic heterotopia, Active esophagitis with increasedintraepithelial eosinophils, small mass lesion was found at the gastroesophageal junction. EGD 01/21/2021 PAST SURGICAL HISTORY OF 02/2012 left foot surgery PAST SURGICAL HISTORY OF 2009 repair tendon right hand PAST SURGICAL HISTORY OF 05/2018 Throat SINUS SURGERY HX 2016 FAMILY HISTORY Problem Relation Age of Onset Cancer Mother thyroid Cancer Father thyroid? Cancer Maternal Grandmother thyroid Hypertension Maternal Grandmother Hypertension Maternal Grandfather Social History Tobacco Use Smoking status: Never Smokeless tobacco: Never Vaping Use Vaping Use: Never used Substance Use Topics Alcohol use: Yes Alcohol/week: 5.0 standard drinks Types: 2 Cans of Beer (12oz) per week Drug use: No Current Outpatient Medications Medication Sig Dispense Refill allopurinol (ZYLOPRIM) 100 mg tablet Take 1 tablet by mouth once daily. For gout. 30 tablet 11 meloxicam (MOBIC) 15 mg tablet Take 1 tablet by mouth once daily. With food. 90 tablet 3 cyclobenzaprine (FLEXERIL) 10 mg tablet Take 1 tablet by mouth three times daily as needed for muscle spasm. 30 tablet 0 montelukast (SINGULAIR) 10 mg tablet Take 1 tablet by mouth daily at bedtime. 90 tablet 3 hyoscyamine (LEVSIN) 0.125 mg tablet Take 1 tablet by mouth every 4 hours as needed (abdominal cramping, abdominal pain). 20 tablet 1 sertraline (ZOLOFT) 25 mg tablet Take 1 tablet by mouth once daily. At bedtime 30 tablet 5 busPIRone (BUSPAR) 5 mg tablet Take 1 tablet by mouth twice daily as needed (anxiety attack). 60 tablet 5 omeprazole (PRILOSEC) 40 mg capsule Take 1 capsule by mouth once daily. 30 capsule 3 ondansetron orally disintegrating (ZOFRAN ODT) 4 mg disintegrating tablet Take 2 tablets by mouth every 8 hours as needed for nausea/vomiting. 20 tablet 0 budesonide (PULMICORT) 0.5 mg/2 mL nebulizer solution For eosinophilic esophagitis. Mix 4 respules with 5 packs of Splenda and swallow daily. Do not eat or drink for 30 minutes after 360 Ampule 3 predniSONE (DELTASONE) 20 mg tablet Take 2 tablets by mouth once daily. (Patient not taking: Reported on 02/02/2021 ) 10 tablet 0 amino acids (BCAA ORAL) Take by mouth. whey protein, concent-isolate (WHEY PROTEIN, CONC-ISOLATE ORAL) Take by mouth. Creatinine, Bulk, 100 % powd sucralfate (CARAFATE) 1 gram tablet Take 1 tablet by mouth four times daily. TAKE 1 PO 30 MINUTES BEFORE MEALS AND AT BEDTIME. 120 tablet 2 ondansetron orally disintegrating (ZOFRAN ODT) 4 mg disintegrating tablet Take 1 tablet by mouth every 8 hours as needed. 12 tablet 0 albuterol HFA (PROAIR HFA) 90 mcg/actuation inhaler Inhale 2 Puffs as instructed every 4 hours as needed. 18 g 1 cetirizine (ZYRTEC) 10 mg tablet Take 10 mg by mouth once daily. 0 No current facility-administered medications for this visit. ALLERGIES Allergen Reactions Bee Sting Swelling Local swelling and shortness of breath Dermabond [Octyl 2-* Rash REVIEW OF SYSTEMS: PAIN ASSESSMENT: Negative for pain, history of chronic pain, or current treatment for a chronic pain condition. GENERAL: No weight loss, malaise or fevers RESPIRATORY: Negative for cough, hemoptysis, wheezing, COPD, dyspnea or shortness of breath CARDIOVASCULAR: Negative for chest pain, leg swelling, hypertension, CHF or palpitations GI: see above PHYSICAL FINDINGS OF NOTE: General - Normal, healthy, cooperative, in no acute distress Able to interact verbally by video conference Psych - ORIENTATION: normal to time place, person and situation Mood/Affect: AFFECT AND MOOD: Normal Head/Neuro - Normal size and shape Facial appearance normal Pulmonary - respiratory effort normal Cardiovascular - patient describes extremities normal, warm, no cyanosis,no clubbing, and no edema Abdominal - Not performed Skin - abnormal lesions not visualized Motor - patient seen sitting with Normal appearing strength and coordination REVIEWED ITEMS EGD 04/2022: Mucosal changes including ringed esophagus, feline appearance, longitudinal furrows and congestion (edema) were found in the entire esophagus. Esophageal findings were graded using the Eosinophilic Esophagitis Endoscopic Reference Score (EoE-EREFS) as: Edema Grade 1 Present (decreased clarity or absence of vascular markings), Rings Grade 2 Moderate (distinct rings that do not occlude passage of diagnostic 8-10 mm endoscope), Exudates Grade 0 None (no white lesions seen), Furrows Grade 1 Present (vertical lines with or without visible depth) and Stricture none (no stricture found). A guidewire was placed and the scope was withdrawn. Dilation was performed with a Savary dilator with moderate resistance at 15 mm and 16 mm. The dilation site was examined following endoscope reinsertion and showed moderate mucosal disruption. Biopsies were obtained from the proximal and distal esophagus with cold forceps for histology of suspected eosinophilic esophagitis. The entire examined stomach was normal. The examined duodenum was normal. A. Esophagus, distal, biopsy: - Hyperplastic squamous esophageal mucosa with increased intraepithelial eosinophils (focally up toapproximately 96 eosinophils per high-power field). - No subepithelial/lamina propria tissue present for evaluation. - Mildly inflamed gastric cardia-type mucosa with focal pancreatic heterotopia; negative for intestinal metaplasia. B. Esophagus, proximal, biopsy: - Hyperplastic squamous esophageal mucosa with increased intraepithelial eosinophils (focally up toapproximately 80 eosinophils per high-power field). - No subepithelial tissue/lamina propria present for evaluation. EGD 01/21/21 Impression: - Z-line irregular, 40 cm from the incisors. Biopsied. This will need advance endoscopy to remove it completey. - Granular, nodular mucosa in the esophagus. Biopsied. - Gastritis. Biopsied. - Normal examined duodenum. Biopsied. Pathology: 1. Esophagogastric junction, mass, biopsy (A) - Inflamed gastric cardia-type mucosa with patchy pancreatic acinar heterotopia, see comment. - Reactive squamous mucosa with increased intraepithelial eosinophils (up to 12/HPF). 2. Stomach, biopsy (B) - Gastric oxyntic mucosa with proton pump inhibitor effect. - No morphologic evidence of H. pylori microorganisms. 3. Duodenum, biopsy (C) - Small intestinal mucosa with no diagnostic alteration. COLONOSCOPY 01/21/21 Impression: - Non-bleeding internal hemorrhoids. No specimens collected. - The entire examined colon is normal. Biopsied. - The examination was otherwise normal. Pathology 4. Random colon, biopsy (D) - Colonic mucosa with no diagnostic alteration. EGD 10/22/20 Impression: - Esophageal mucosal changes suggestive of eosinophilic esophagitis. Biopsied. - LA Grade C reflux esophagitis. - Rule out malignancy, esophageal tumor was found at the gastroesophageal junction. Biopsied. - Bilious gastric fluid. - Normal duodenal bulb and second portion of the duodenum. Pathology: 1. Esophagogastric junction, biopsy (A) - Active esophagitis with increased intraepithelial eosinophils (focally up to 90 eosinophils per high power field). - Inflamed gastric cardiac type mucosa with reactive epithelial changes and focal pancreatic heterotopia, negative for intestinal metaplasia or dysplasia. - See comment. 2. Body of esophagus, biopsy (B) - Active esophagitis with increased intraepithelial eosinophils (focally > 150 eosinophils per high power field). - See comment. ASSESSMENT AND PLAN 37M with eosinophilic esophagitis and continued dysphagia despite PPI BID and dilation to 16mm. He has continued eosinophils on path despite PPI and diet On review of records, his eosinophils had significantly improved on budesonide, but did not fully resolve Recommend: --Will prescribe dupilumab for eosinophilic esophagitis - patient has tried and failed PPI, topicalcorticosteroid, diet as above --In the meantime, will refill his budesonide --Repeat EGD for biopsies and further dilation in 2 months --RTC in 4 months Robi Hendrickson MD documented in this encounterReg[facility] Nurse Note* Angelica White RN - 05/18/2022 4:41 PM EDT AMBULATORY PATIENT EDUCATION NOTE TOPIC: GI PROCEDURES: Esophagogastroduodenoscopy(EGD) for control of bleeding,dilation(any means),imaging,tube placement READINESS TO LEARN INSTRUCTION PROVIDED TO: Patient and family member COGNITIVE ABILITY: Alert and oriented PTED MOTIVATION TO LEARN: Interested FAMILY SUPPORT: High - Very involved in pt care IPATIENT LEARNS BEST BY: Individual Instruction Written Instruction - Hand-outs Verbal Instruction FACTORS AFFECTING LEARNING: None PHYSICAL LIMITATIONS AFFECTING LEARNING: None LEARNING RESPONSE METHOD OF INSTRUCTION: Individual instruction PATIENT / FAMILY RESPONSE: Verbalizes understanding of: WORSENING CONDITION- Signs and symptoms of aworsening condition that warrant a call to the physician FOLLOW-UP PLAN: Recommend - Recommend continued instruction and follow up as directed SUPPLEMENTAL MATERIAL: Procedure Discharge Instructions REFERRAL (RECOMMENDATION): None * Ramya Aden RN - 05/18/2022 3:33 PM EDT PRE OP LEARNING ASSESSMENT PROCEDURE/SURGERY: GI PROCEDURES: EGD READINESS TO LEARN COGNITIVE ABILITY: Alert and oriented MOTIVATION TO LEARN: Eager FAMILY SUPPORT: Moderate - Family present but overwhelmed PATIENT LEARNS BEST BY: Individual Instruction FACTORS AFFECTING LEARNING: None PHYSICAL LIMITATIONS AFFECTING LEARNING: None Electronically Signed By: Ramya Aden RN In Department: GASTROENTEROLOGY documented in this encounterReg[facility]-19-2022 Miscellaneous Notes* Telephone Encounter - Simba Horton DO - 05/17/2022 4:36 PM EDT The following approved medication requests have been transmitted electronically. Requested Prescriptions Signed Prescriptions Disp Refills doxycycline (VIBRA-TABS) 100 mg tablet 20 tablet 0 Sig: Take 1 tablet by mouth twice daily for 10 days. Authorizing Provider: SIMBA HORTON predniSONE (DELTASONE) 20 mg tablet 8 tablet 0 Sig: Take 2 tablets by mouth once daily for 4 days. Take daily with food. Authorizing Provider: SIMBA HORTON DO documented in this encounterRegency [facility]09-13-2022 Miscellaneous Notes* Telephone Encounter - Olesya Chan RN - 05/11/2022 12:49 PM EDT Attempted to reach the patient at the contact number that they provided [phone] (home) . Unable to speak with patient and call could not be connected. OLESYA Chan RN documented in this encounterRegency Hospital [facility]08-11-2022 Miscellaneous Notes* Telephone Encounter - Becca Trujillo RN - 04/08/2022 9:51 AM EDT Patient has been identified by name and date of : Yes Pharmacy phones for refill(s): Requested Prescriptions Pending Prescriptions Disp Refills allopurinol (ZYLOPRIM) 100 mg tablet 30 tablet 11 Sig: Take 1 tablet by mouth once daily. For gout. Date of last office visit in primary care: 02/03/22 Future Visit: none Last 2 Encounter Wt Readings: Date: Wt: 03/08/2022 105.7 kg (233 lb) 02/03/2022 106.1 kg (234 lb) Previous labs/tests for medication: Blood Pressure: BUN (mg/dL) Date Value 01/12/2022 11 06/17/2021 15 Sodium (mmol/L) Date Value 01/12/2022 139 06/17/2021 140 Last 1 Encounter BP Readings: Date: BP: 03/08/2022 112/74 Liver Function: ALT (U/L) Date Value 01/12/2022 37 06/17/2021 70 AST (U/L) Date Value 01/12/2022 32 06/17/2021 42 Please advise. Thank you. Becca Trujillo RN documented in this encounterRegency Hospital [facility]07-11-2022 History of Present illness Narrative* Mary Del Rio PA-C - 03/08/2022 8:12 AM EDT 03/08/2022 Patient presents with: Chest Congestion: sore throat, chills, VALLES x 2 days SUBJECTIVE: This is a 37 year old that is here today for Complaint(s) of chest congestion and chills x 2 days. Note associated VALLES and sore throat. Having body aches and fatigue. He reports some increased wheezing with symptoms, PMH Asthma. Using Albuterol-used twice yesterday. + diarrhea. Denies fever, vomiting, SOB, chest pain, leg swelling. Not on a daily maintenance inhaler. Asthma-mild. PAST MEDICAL HISTORY Diagnosis Date Arthritis Awareness under anesthesia Dysthymia 02/03/2022 Obstructive sleep apnea Palpitations Seasonal allergies Well adult exam ALLERGIES Bee Sting and Dermabond [Octyl 2-Cyanoacrylate] MEDICATIONS Current Outpatient Medications Medication Sig meloxicam (MOBIC) 15 mg tablet Take 1 tablet by mouth once daily. With food. cyclobenzaprine (FLEXERIL) 10 mg tablet Take 1 tablet by mouth three times daily as needed for muscle spasm. montelukast (SINGULAIR) 10 mg tablet Take 1 tablet by mouth daily at bedtime. hyoscyamine (LEVSIN) 0.125 mg tablet Take 1 tablet by mouth every 4 hours as needed (abdominal cramping, abdominal pain). sertraline (ZOLOFT) 25 mg tablet Take 1 tablet by mouth once daily. At bedtime busPIRone (BUSPAR) 5 mg tablet Take 1 tablet by mouth twice daily as needed (anxiety attack). omeprazole (PRILOSEC) 40 mg capsule Take 1 capsule by mouth once daily. amino acids (BCAA ORAL) Take by mouth. whey protein, concent-isolate (WHEY PROTEIN, CONC-ISOLATE ORAL) Take by mouth. Creatinine, Bulk, 100 % powd albuterol HFA (PROAIR HFA) 90 mcg/actuation inhaler Inhale 2 Puffs as instructed every 4 hours as needed. cetirizine (ZYRTEC) 10 mg tablet Take 10 mg by mouth once daily. ondansetron orally disintegrating (ZOFRAN ODT) 4 mg disintegrating tablet Take 2 tablets by mouth every 8 hours as needed for nausea/vomiting. budesonide (PULMICORT) 0.5 mg/2 mL nebulizer solution For eosinophilic esophagitis. Mix 4 respules with 5 packs of Splenda and swallow daily. Do not eat or drink for 30 minutes after predniSONE (DELTASONE) 20 mg tablet Take 2 tablets by mouth once daily. (Patient not taking: Reported on 02/02/2021 ) sucralfate (CARAFATE) 1 gram tablet Take 1 tablet by mouth four times daily. TAKE 1 PO 30 MINUTES BEFORE MEALS AND AT BEDTIME. ondansetron orally disintegrating (ZOFRAN ODT) 4 mg disintegrating tablet Take 1 tablet by mouth every 8 hours as needed. No current facility-administered medications for this visit. SOCIAL HISTORY Social History Tobacco Use Smoking status: Never Smoker Smokeless tobacco: Never Used Vaping Use Vaping Use: Never used Substance Use Topics Alcohol use: Yes Alcohol/week: 5.0 standard drinks Types: 2 Cans of Beer (12oz) per week Drug use: No REVIEW OF SYSTEMS See HPI OBJECTIVE: BP 112/74 Pulse 67 Temp 36.1 C (96.9 F) Resp 21 Wt 105.7 kg (233 lb) SpO2 99% BMI 31.91kg/m APPEARANCE alert, in no acute distress, well-hydrated, well nourished. EYES PERRLA, conjunctiva and sclera normal. EARS External ears normal, canals clear. TMs normal EDNA NOSE/SINUS Nares normal. Septum midline. Mucosa normal. No drainage or sinus tenderness. THROAT normal, no erythema NECK Supple, no adenopathy; HEART RRR with normal S1 and S2 LUNG clear to auscultation, No wheezing, rhonchi, rales. ABDOMEN soft, non-tender. No organomegaly. No rebound, rigidity or guarding. ASSESSMENT/PLAN: 1. Diarrhea, unspecified type - ICD9: 787.91, ICD10: R19.7 (primary diagnosis) Suspect COVID vs other viral etiology F/u if not improving in 2-3 days, sooner if worsening BRAT/bland diet - 2019 CORONAVIRUS 2. URI, acute - ICD9: 465.9, ICD10: J06.9 - Discussed viral etiology and rationale for treatment. - Symptomatic treatment with prn analgesia - Supportive care with fluids and rest - The patient may also use OTC cough and cold meds as needed, warm salt water gargles, throat lozenges and/or OTC throat spray as needed and nasal saline gtts and suction prn. - Follow up in 3-5 days if symptoms persist or sooner if worsening of symptoms - 2019 CORONAVIRUS 3. Mild intermittent asthma, uncomplicated - ICD9: 493.90, ICD10: J45.20 albuterol prn Prednisone sent if needed. Reviewed treatment plan with patient - PREDNISONE 20 MG TABLET The patient indicates understanding of these issues and agrees with the plan. Mary Del Rio PA-C documented in this encounterRegency Hospital [facility]05-19-2022 Miscellaneous Notes* Telephone Encounter - Macy Alonzo LPN - 01/14/2022 8:47 AM EDT Left message for patient with results and recommendations.Macy Alonzo LPN * Telephone Encounter - Dinorah Smith - 01/12/2022 4:29 PM EDT Left message for patient to return call. Dinorah Smtih * Telephone Encounter - Sammy Fish APRN.CNP - 01/12/2022 2:31 PM EDT No significant abnormal findings noted on CBC or CMP. Follow-up with Dr. Horton symptoms or not improving in 2 to 3 days. Sammy Fish APRN.CNP documented in this encounterRegency Hospital [facility]05-17-2022 Instructions* Patient Instructions* Sammy Fish APRN.CNP - 01/12/2022 11:03 AM EDT DIARRHEA Diarrhea can be caused by many different conditions. The most common cause is viral illness. Food poisoning, bacterial infection, and reactions to medicine (especially antibiotics and antacids) may also be the cause. Most of the time diarrhea improves after 2-3 days of rest and oral fluid replacement. You should drink enough clear fluids (water, sodas, Gatorade) to prevent dehydration. Adults must drink at least 2-3 quarts daily. Solid foods and dairy products must be avoided until your illnessimproves; then only small amounts may be included in your diet for several days. Medicine to control cramping and diarrhea may be helpful. If you have a fever or blood in the stool, however, these medicines should be avoided as they may prolong your illness. Antibiotics can speedrecovery from diarrhea due to some bacterial infections, but may cause complications. Please call your doctor or the emergency department if your diarrhea does not get better in 3 days, or if you have fever, blood in the stool, vomiting, or become more dehydrated. documented in this encounterRegency Hospital [facility]05-17-2022 History of Present illness Narrative* Sammy Fish APRN.CNP - 01/12/2022 10:55 AM EDT Subjective HPI Nontoxic male presents urgent care chief complaint loose stools. Duration of symptoms 3 days. Associated symptoms diarrhea and transient headache. Patient states had 6-8 loose stools a day. States stools are watery. No blood or mucus noted in stools. Patient states this started Tuesday evening. Wifehad similar signs symptoms. Herself since improved. Denies any pain currently. States he does have abdominal cramping this is transient. Denies any fever body aches chills productive cough chest painshortness of breath pleuritic pain hemoptysis rashes. Past medical history prescription medication use allergies reviewed. Patient states has history of IBS and GI issues. .Patient presents with: Diarrhea: Pt denied blood, mucus Headache: Pain rated 7, x3 days PAST MEDICAL HISTORY Diagnosis Date Arthritis Awareness under anesthesia Obstructive sleep apnea Palpitations Seasonal allergies Well adult exam PAST SURGICAL HISTORY Procedure Laterality Date ABDOMINAL SURGERY HX COLONOSCOPY 01/21/2021 EGD 10/22/2020 Active esophagitis with increased intraepithelial eosinophils,Inflamed gastric cardiac type mucosa with reactive epithelial changes and focal pancreatic heterotopia, Active esophagitis with increasedintraepithelial eosinophils, small mass lesion was found at the gastroesophageal junction. EGD 01/21/2021 PAST SURGICAL HISTORY OF 02/2012 left foot surgery PAST SURGICAL HISTORY OF 2009 repair tendon right hand PAST SURGICAL HISTORY OF 05/2018 Throat SINUS SURGERY HX 2016 ALLERGIES Bee Sting and Dermabond [Octyl 2-Cyanoacrylate] MEDICATIONS hyoscyamine (LEVSIN) 0.125 mg tablet Take 1 tablet by mouth every 4 hours as needed (abdominal cramping, abdominal pain). meloxicam (MOBIC) 15 mg tablet Take 1 tablet by mouth once daily. With food. sertraline (ZOLOFT) 25 mg tablet Take 1 tablet by mouth once daily. At bedtime busPIRone (BUSPAR) 5 mg tablet Take 1 tablet by mouth twice daily as needed (anxiety attack). omeprazole (PRILOSEC) 40 mg capsule Take 1 capsule by mouth once daily. amino acids (BCAA ORAL) Take by mouth. whey protein, concent-isolate (WHEY PROTEIN, CONC-ISOLATE ORAL) Take by mouth. Creatinine, Bulk, 100 % powd albuterol HFA (PROAIR HFA) 90 mcg/actuation inhaler Inhale 2 Puffs as instructed every 4 hours as needed. cetirizine (ZYRTEC) 10 mg tablet Take 10 mg by mouth once daily. ondansetron orally disintegrating (ZOFRAN ODT) 4 mg disintegrating tablet Take 2 tablets by mouth every 8 hours as needed for nausea/vomiting. budesonide (PULMICORT) 0.5 mg/2 mL nebulizer solution For eosinophilic esophagitis. Mix 4 respules with 5 packs of Splenda and swallow daily. Do not eat or drink for 30 minutes after predniSONE (DELTASONE) 20 mg tablet Take 2 tablets by mouth once daily. cyclobenzaprine (FLEXERIL) 10 mg tablet Take 1 tablet by mouth three times daily as needed for Muscle Spasm. sucralfate (CARAFATE) 1 gram tablet Take 1 tablet by mouth four times daily. TAKE 1 PO 30 MINUTES BEFORE MEALS AND AT BEDTIME. ondansetron orally disintegrating (ZOFRAN ODT) 4 mg disintegrating tablet Take 1 tablet by mouth every 8 hours as needed. FAMILY HISTORY Problem Relation Age of Onset Cancer Mother thyroid Cancer Father thyroid? Cancer Maternal Grandmother thyroid Hypertension Maternal Grandmother Hypertension Maternal Grandfather Social History Tobacco Use Smoking status: Never Smoker Smokeless tobacco: Never Used Vaping Use Vaping Use: Never used Substance Use Topics Alcohol use: Yes Alcohol/week: 5.0 standard drinks Types: 2 Cans of Beer (12oz) per week Drug use: No BP 124/82 Pulse 79 Temp 36.6 C (97.9 F) Resp 16 Wt 106.3 kg (234 lb 6.4 oz) SpO2 98% BMI 32.10 kg/m Review of Systems Constitutional: Negative for chills, fever and malaise/fatigue. HENT: Negative for congestion, ear discharge, ear pain, sinus pain and sore throat. Eyes: Negative for blurred vision, pain, discharge and redness. Respiratory: Negative for cough, hemoptysis, sputum production, shortness of breath, wheezing and stridor. Cardiovascular: Negative for chest pain. Gastrointestinal: Positive for diarrhea. Negative for abdominal pain, nausea and vomiting. Musculoskeletal: Negative for myalgias. Skin: Negative for itching and rash. Neurological: Positive for headaches. Negative for dizziness. Objective Physical Exam Constitutional: General: He is not in acute distress. Appearance: He is not diaphoretic. HENT: Head: Normocephalic. Nose: Congestion present. Mouth/Throat: Mouth: Mucous membranes are moist. Pharynx: Oropharynx is clear. No oropharyngeal exudate or posterior oropharyngeal erythema. Eyes: Conjunctiva/sclera: Conjunctivae normal. Pupils: Pupils are equal, round, and reactive to light. Cardiovascular: Rate and Rhythm: Normal rate and regular rhythm. Heart sounds: Normal heart sounds. Pulmonary: Effort: Pulmonary effort is normal. No tachypnea, accessory muscle usage or respiratory distress. Breath sounds: Normal breath sounds. No stridor. Abdominal: General: Bowel sounds are normal. There is no distension. Palpations: Abdomen is soft. Tenderness: There is no abdominal tenderness. There is no right CVA tenderness, left CVA tenderness, guarding or rebound. Musculoskeletal: Cervical back: Normal range of motion and neck supple. No rigidity or tenderness. Lymphadenopathy: Cervical: No cervical adenopathy. Skin: General: Skin is warm and dry. Neurological: Mental Status: He is alert and oriented to person, place, and time. ASSESSMENT/PLAN: 1. Diarrhea, unspecified type - ICD9: 787.91, ICD10: R19.7 - COMP METABOLIC PANEL - CBC + DIFF No blood in the stool. No mucus. No abdominal pain with palpation. Suspicious of viral etiology. Positive contact with individuals similar signs and symptoms. Will check CMP and CBC. With PCP 2 to 3 days. Patient was educated on supportive therapies. Patient was instructed to immediately proceed toemergency room for any new, worsening, or symptoms lasting longer than anticipated. The patient's clinical presentation is otherwise unremarkable at this time. Based on exam and clinical finding, thepatient is stable for discharge. Plan of care was discussed with patient. Patient verbalizes understanding and agrees to plan of care. This note was generated using gAuto software. It may contain errors in wording, punctuation, or spelling. Sammy Fish APRN.KVNG documented in this encounterRegency [facility]04-12-2022 Miscellaneous Notes* Telephone Encounter - Pricilla Betts Liu REYNOSO - 12/08/2021 7:48 AM EDT Patient has been identified by name and date of : Yes Patient phones for refill(s): Pending Prescriptions Disp Refills HYOSCYAMINE SULFATE 0.125 MG TABLET 20 tablet 1 Sig: Take 1 tablet by mouth every 4 hours as needed (abdominal cramping, abdominal pain). JORGE LUIS: No Date of last office visit in primary care: 11/18/21 next apt 02/03/22 Last 2 Encounter Wt Readings: Date: Wt: 11/18/2021 111.1 kg (245 lb) 09/07/2021 115.9 kg (255 lb 9.6 oz) Previous labs/tests for medication: Not applicable Please advise. Thank you. Pricilla Hatfield LPN documented in this encounterRegency Hospital [facility]05-26-2021 History of Past illness Narrative* Problem Noted Date Resolved Date Acute esophagitis 01/21/2021 01/21/2021 RUQ pain 11/19/2020 11/19/2020 documented as of this encounter (statuses as of 12/08/2021) [facility] of Past illness Narrative* Problem Noted Date Resolved Date Acute esophagitis 01/21/2021 01/21/2021 RUQ pain 11/19/2020 11/19/2020 documented as of this encounter (statuses as of 01/13/2022) [facility] of Past illness Narrative* Problem Noted Date Resolved Date Acute esophagitis 01/21/2021 01/21/2021 RUQ pain 11/19/2020 11/19/2020 documented as of this encounter (statuses as of 01/14/2022) [facility] of Past illness Narrative* Problem Noted Date Resolved Date Acute esophagitis 01/21/2021 01/21/2021 RUQ pain 11/19/2020 11/19/2020 documented as of this encounter (statuses as of 03/08/2022) [facility] of Past illness Narrative* Problem Noted Date Resolved Date Acute esophagitis 01/21/2021 01/21/2021 RUQ pain 11/19/2020 11/19/2020 documented as of this encounter (statuses as of 04/08/2022) [facility] of Past illness Narrative* Problem Noted Date Resolved Date Acute esophagitis 01/21/2021 01/21/2021 RUQ pain 11/19/2020 11/19/2020 documented as of this encounter (statuses as of 05/11/2022) [facility] of Past illness Narrative* Problem Noted Date Resolved Date Acute esophagitis 01/21/2021 01/21/2021 RUQ pain 11/19/2020 11/19/2020 documented as of this encounter (statuses as of 05/19/2022) [facility] of [facility] illness Narrative* Problem Noted Date Resolved Date Acute esophagitis 01/21/2021 01/21/2021 RUQ pain 11/19/2020 11/19/2020 documented as of this encounter (statuses as of 05/20/2022) [facility] of [facility] illness Narrative* Problem Noted Date Resolved Date Acute esophagitis 01/21/2021 01/21/2021 RUQ pain 11/19/2020 11/19/2020 documented as of this encounter (statuses as of 06/29/2022) [facility] of [facility] illness Narrative* Problem Noted Date Resolved Date Acute esophagitis 01/21/2021 01/21/2021 RUQ pain 11/19/2020 11/19/2020 documented as of this encounter (statuses as of 09/20/2022) [facility] of [facility] illness Narrative* Problem Noted Date Resolved Date Acute esophagitis 01/21/2021 01/21/2021 RUQ pain 11/19/2020 11/19/2020 documented as of this encounter (statuses as of 10/07/2022) [facility] of Past illness Narrative* Problem Noted Date Resolved Date Acute esophagitis 01/21/2021 01/21/2021 RUQ pain 11/19/2020 11/19/2020 documented as of this encounter (statuses as of 11/03/2022) [facility] of [facility] illness Narrative* Problem Noted Date Resolved Date Acute esophagitis 01/21/2021 01/21/2021 RUQ pain 11/19/2020 11/19/2020 documented as of this encounter (statuses as of 11/04/2022) [facility] of [facility] Narrative* Problem Noted Date Resolved Date Acute esophagitis 01/21/2021 01/21/2021 RUQ pain 11/19/2020 11/19/2020 documented as of this encounter (statuses as of 11/27/2022) [facility] of [facility] Narrative* Problem Noted Date Resolved Date Acute esophagitis 01/21/2021 01/21/2021 RUQ pain 11/19/2020 11/19/2020 documented as of this encounter (statuses as of 12/03/2022) [facility] Narrative* Problem Noted Date Resolved Date Acute esophagitis 01/21/2021 01/21/2021 RUQ pain 11/19/2020 11/19/2020 documented as of this encounter (statuses as of 12/06/2022) [facility] Narrative* Problem Noted Date Resolved Date Acute esophagitis 01/21/2021 01/21/2021 RUQ pain 11/19/2020 11/19/2020 documented as of this encounter (statuses as of 12/07/2022) [facility] Narrative* Problem Noted Date Resolved Date Acute esophagitis 01/21/2021 01/21/2021 RUQ pain 11/19/2020 11/19/2020 documented as of this encounter (statuses as of 12/13/2022) [facility] of [facility] Narrative* Problem Noted Date Resolved Date Acute esophagitis 01/21/2021 01/21/2021 RUQ pain 11/19/2020 11/19/2020 documented as of this encounter (statuses as of 12/16/2022) [facility] of [facility] Narrative* Problem Noted Date Resolved Date Acute esophagitis 01/21/2021 01/21/2021 RUQ pain 11/19/2020 11/19/2020 documented as of this encounter (statuses as of 01/31/2023) [facility] of [facility] Narrative* Problem Noted Date Resolved Date Acute esophagitis 01/21/2021 01/21/2021 RUQ pain 11/19/2020 11/19/2020 documented as of this encounter (statuses as of 02/02/2023) [address]26-2021 History of Past illness Narrative* Problem Noted Date Resolved Date Acute esophagitis 01/21/2021 01/21/2021 RUQ pain 11/19/2020 11/19/2020 documented as of this encounter (statuses as of 02/14/2023) [facility] Narrative* Problem Noted Date Resolved Date Acute esophagitis 01/21/2021 01/21/2021 RUQ pain 11/19/2020 11/19/2020 documented as of this encounter (statuses as of 02/25/2023) [facility] Narrative* Problem Noted Date Diagnosed Date Resolved Date Acute esophagitis 01/21/2021 01/21/2021 RUQ pain 11/19/2020 11/19/2020 documented as of this encounter (statuses as of 03/30/2023) [facility] of [facility] Narrative* Problem Noted Date Diagnosed Date Resolved Date Acute esophagitis 01/21/2021 01/21/2021 RUQ pain 11/19/2020 11/19/2020 documented as of this encounter (statuses as of 03/31/2023) [facility] of [facility] Narrative* Problem Noted Date Diagnosed Date Resolved Date Acute esophagitis 01/21/2021 01/21/2021 RUQ pain 11/19/2020 11/19/2020 documented as of this encounter (statuses as of 03/31/2023) [facility] of [facility] Narrative* Problem Noted Date Diagnosed Date Resolved Date Acute esophagitis 01/21/2021 01/21/2021 RUQ pain 11/19/2020 11/19/2020 documented as of this encounter (statuses as of 04/01/2023) [facility] of [facility] Narrative* Problem Noted Date Diagnosed Date Resolved Date Acute esophagitis 01/21/2021 01/21/2021 RUQ pain 11/19/2020 11/19/2020 documented as of this encounter (statuses as of 04/08/2023) [address]26-2021 History of Past illness Narrative* Problem Noted Date Diagnosed Date Resolved Date Acute esophagitis 01/21/2021 01/21/2021 RUQ pain 11/19/2020 11/19/2020 documented as of this encounter (statuses as of 04/09/2023) [facility] of Past illness Narrative* Problem Noted Date Diagnosed Date Resolved Date Acute esophagitis 01/21/2021 01/21/2021 RUQ pain 11/19/2020 11/19/2020 documented as of this encounter (statuses as of 04/26/2023) [facility]05-26-2021 History of Past illness Narrative* Problem Noted Date Diagnosed Date Resolved Date Acute esophagitis 01/21/2021 01/21/2021 RUQ pain 11/19/2020 11/19/2020 documented as of this encounter (statuses as of 05/05/2023) [address]26-2021 History of Past illness Narrative* Problem Noted Date Diagnosed Date Resolved Date Acute esophagitis 01/21/2021 01/21/2021 RUQ pain 11/19/2020 11/19/2020 documented as of this encounter (statuses as of 05/05/2023) [facility]05-26-2021 History of Past illness Narrative* Problem Noted Date Diagnosed Date Resolved Date Acute esophagitis 01/21/2021 01/21/2021 RUQ pain 11/19/2020 11/19/2020 documented as of this encounter (statuses as of 05/05/2023) [facility]05-26-2021 History of Past illness Narrative* Problem Noted Date Diagnosed Date Resolved Date Acute esophagitis 01/21/2021 01/21/2021 RUQ pain 11/19/2020 11/19/2020 documented as of this encounter (statuses as of 05/19/2023) [facility]-26-2021 History of Past illness Narrative* Problem Noted Date Diagnosed Date Resolved Date Acute esophagitis 01/21/2021 01/21/2021 RUQ pain 11/19/2020 11/19/2020 documented as of this encounter (statuses as of 05/21/2023) [address]26-2021 History of Past illness Narrative* Problem Noted Date Diagnosed Date Resolved Date Acute esophagitis 01/21/2021 01/21/2021 RUQ pain 11/19/2020 11/19/2020 documented as of this encounter (statuses as of 07/05/2023) [facility]-26-2021 History of Past illness Narrative* Problem Noted Date Diagnosed Date Resolved Date Acute esophagitis 01/21/2021 01/21/2021 RUQ pain 11/19/2020 11/19/2020 documented as of this encounter (statuses as of 07/13/2023) [facility]-26-2021 History of Past illness Narrative* Problem Noted Date Diagnosed Date Resolved Date Acute esophagitis 01/21/2021 01/21/2021 RUQ pain 11/19/2020 11/19/2020 documented as of this encounter (statuses as of 07/20/2023) [address]26-2021 History of Past illness Narrative* Problem Noted Date Diagnosed Date Resolved Date Acute esophagitis 01/21/2021 01/21/2021 RUQ pain 11/19/2020 11/19/2020 documented as of this encounter (statuses as of 08/02/2023) [facility]-26-2021 History of Past illness Narrative* Problem Noted Date Diagnosed Date Resolved Date Acute esophagitis 01/21/2021 01/21/2021 RUQ pain 11/19/2020 11/19/2020 documented as of this encounter (statuses as of 08/03/2023) [facility]-26-2021 History of Past illness Narrative* Problem Noted Date Diagnosed Date Resolved Date Acute esophagitis 01/21/2021 01/21/2021 RUQ pain 11/19/2020 11/19/2020 documented as of this encounter (statuses as of 08/03/2023) [address]26-2021 History of Past illness Narrative* Problem Noted Date Diagnosed Date Resolved Date Acute esophagitis 01/21/2021 01/21/2021 RUQ pain 11/19/2020 11/19/2020 documented as of this encounter (statuses as of 10/11/2023) [facility]-26-2021 History of Past illness Narrative* Problem Noted Date Diagnosed Date Resolved Date Acute esophagitis 01/21/2021 01/21/2021 RUQ pain 11/19/2020 11/19/2020 documented as of this encounter (statuses as of 10/12/2023) [facility]-26-2021 History of Past illness Narrative* Problem Noted Date Diagnosed Date Resolved Date Acute esophagitis 01/21/2021 01/21/2021 RUQ pain 11/19/2020 11/19/2020 documented as of this encounter (statuses as of 10/13/2023) [facility]-26-2021 History of Past illness Narrative* Problem Noted Date Diagnosed Date Resolved Date Acute esophagitis 01/21/2021 01/21/2021 RUQ pain 11/19/2020 11/19/2020 documented as of this encounter (statuses as of 10/31/2023) [facility]-26-2021 History of Past illness Narrative* Problem Noted Date Diagnosed Date Resolved Date Acute esophagitis 01/21/2021 01/21/2021 RUQ pain 11/19/2020 11/19/2020 documented as of this encounter (statuses as of 11/08/2023) [facility]-26-2021 History of Past illness Narrative* Problem Noted Date Diagnosed Date Resolved Date Acute esophagitis 01/21/2021 01/21/2021 RUQ pain 11/19/2020 11/19/2020 documented as of this encounter (statuses as of 11/11/2023) [facility]-26-2021 History of Past illness Narrative* Problem Noted Date Diagnosed Date Resolved Date Acute esophagitis 01/21/2021 01/21/2021 RUQ pain 11/19/2020 11/19/2020 documented as of this encounter (statuses as of 11/29/2023) [facility]-26-2021 History of Past illness Narrative* Problem Noted Date Diagnosed Date Resolved Date Acute esophagitis 01/21/2021 01/21/2021 RUQ pain 11/19/2020 11/19/2020 documented as of this encounter (statuses as of 12/08/2023) [facility]-26-2021 History of Past illness Narrative* Problem Noted Date Diagnosed Date Resolved Date Acute esophagitis 01/21/2021 01/21/2021 RUQ pain 11/19/2020 11/19/2020 documented as of this encounter (statuses as of 12/09/2023) [facility]-26-2021 History of Past illness Narrative* Problem Noted Date Diagnosed Date Resolved Date Acute esophagitis 01/21/2021 01/21/2021 RUQ pain 11/19/2020 11/19/2020 documented as of this encounter (statuses as of 12/14/2023) [facility]-26-2021 History of Past illness Narrative* Problem Noted Date Diagnosed Date Resolved Date Acute esophagitis 01/21/2021 01/21/2021 RUQ pain 11/19/2020 11/19/2020 documented as of this encounter (statuses as of 12/14/2023) [facility]-26-2021 History of Past illness Narrative* Problem Noted Date Diagnosed Date Resolved Date Acute esophagitis 01/21/2021 01/21/2021 RUQ pain 11/19/2020 11/19/2020 documented as of this encounter (statuses as of 12/16/2023) [facility]-26-2021 History of Past illness Narrative* Problem Noted Date Diagnosed Date Resolved Date Acute esophagitis 01/21/2021 01/21/2021 RUQ pain 11/19/2020 11/19/2020 documented as of this encounter (statuses as of 12/02/2023) [facility]03-24-2021 NoteHNO ID: [id number] Author: Robi Wilde Service: ? Author Type: Nurse Recovery Assistant Type: Anesthesia Procedure Notes Filed: 11/19/2020 8:01 AM Note Text: ANESTHESIOLOGY PROCEDURE NOTE Airway General Information Procedure Start Time/Medication Administration: 11/19/2020 7:39 AM Patient location during procedure: OR Timeout Performed Pre-procedure: timeout performed Consent Obtained: Yes Patient identity confirmed: arm band and patient Staffing SILVERWARE BUFFING MACHINE OPERATOR: Robi Wilde Performed by: SILVERWARE BUFFING MACHINE OPERATOR Indications and Patient Condition Preoxygenated: yes Patient position: sniffing Manual In-Line Stabilization: No Difficult Mask: No Indications for airway management: anesthesia and airway protection anesthesia circuit Method: asleep Cricoid Pressure: Yes Final Airway Details Final airway type: endotracheal airway Final Endotracheal Airway: ETT Cuffed: yes Successful intubation technique: direct laryngoscopy Endotracheal tube insertion site: oral Blade: Michelle Blade size: #4 ETT size (mm): 7.5 Measured from: lips Measurement (cm): 24 Placement verified by: capnometry Cormack-Lehane Classification: grade IIa - partial view of glottis Ventilation between attempts: BVM Failed airway: no Unrecognized esophageal intubation: no Airway not difficult SIGNATURE: Robi Wilde APRN.SILVERWARE BUFFING MACHINE OPERATOR PATIENT NAME: aCrl Gross DATE: November 19, 2020 TIME: 8:00 AM [id number] Diagnosis Abdominal pain, unspecified abdominal location Abdominal spasms Abdominal pain, unspecified site documented in this encounter [facility] note* Diagnosis Diarrhea, unspecified type- Primary documented in this encounter [facility] note* Diagnosis Diarrhea, unspecified type- Primary URI, acute Acute upper respiratory infections of unspecified site Mild intermittent asthma, uncomplicated Unspecified asthma documented in this encounter [facility] note* Diagnosis Eosinophilic esophagitis documented in this encounter [facility] note* Diagnosis Esophagitis, eosinophilic- Primary Eosinophilic esophagitis documented in this encounter [facility] note* Diagnosis Viral syndrome- Primary Unspecified viral infection, in conditions classified elsewhere and of unspecified site documented in this encounter [facility] note* Diagnosis Esophagitis, eosinophilic Eosinophilic esophagitis documented in this encounter [facility] note* Diagnosis Acute esophagitis documented in this encounter [facility] noteNo assessment information availableWTriHealth [facility] Work Phone: Evaluation note* Diagnosis Sprain of ligament of left ankle, subsequent encounter- Primary Injury of left ankle, subsequent encounter Elevated BP without diagnosis of hypertension documented in this encounter [facility] note* Diagnosis Injury of left ankle, subsequent encounter- Primary Sprain of ligament of left ankle, subsequent encounter documented in this encounter [facility] note* Diagnosis Rhinosinusitis- Primary Unspecified sinusitis (chronic) documented in this encounter [facility] note* Diagnosis Mild intermittent asthma, uncomplicated- Primary Unspecified asthma Acute non-recurrent maxillary sinusitis [facility] Diagnosis Acute non-recurrent maxillary sinusitis documented in this encounter [facility] note* Diagnosis Acute non-recurrent maxillary sinusitis Mild intermittent asthma, uncomplicated Unspecified asthma documented in this encounter [facility] note* Diagnosis Eosinophilic esophagitis documented in this encounter [facility] note* Diagnosis Acute esophagitis documented in this encounter [facility] note* Diagnosis Well adult exam- Primary Routine general medical examination at a [facility] care facility Acute esophagitis Eosinophilic esophagitis Chronic gout of multiple sites, unspecified cause Chronic pain of both shoulders Pain in joint, shoulder region Bunion of great toe of left foot Bunion documented in this encounter [facility] note* Diagnosis Testosterone deficiency- Primary Other testicular hypofunction documented in this encounter [facility] note* Diagnosis Low testosterone- Primary Other testicular hypofunction documented in this encounter [facility] note* Diagnosis Dysthymia Dysthymic disorder THA (generalized anxiety disorder) Generalized anxiety disorder documented in this encounter [facility] note* Diagnosis Low testosterone Other testicular hypofunction documented in this encounter [facility] note* Diagnosis Esophageal stenosis Stricture and stenosis of esophagus documented in this encounter [facility] note* Diagnosis Eosinophilic esophagitis- Primary documented in this encounter [facility] note* Diagnosis Exacerbation of asthma, unspecified asthma severity, unspecified whether persistent- Primary documented in this encounter [facility] note* Diagnosis Flu-like symptoms- Primary Other general symptoms Sore throat Acute pharyngitis documented in this encounter [facility] note* Diagnosis Flu-like symptoms Other general symptoms documented in this encounter [facility] note* Diagnosis Eosinophilic esophagitis- Primary [facility]* Diagnosis Preop examination- Primary Preoperative examination, unspecified Mild intermittent asthma without complication Unspecified asthma GERD without esophagitis Esophageal reflux Chronic gout of multiple sites, unspecified cause THA (generalized anxiety disorder) Generalized anxiety disorder documented in this encounter [facility] note* Diagnosis Acute right-sided low back pain with right-sided sciatica documented in this encounter [facility] note* Diagnosis Eosinophilic esophagitis documented in this encounter [facility] note* Diagnosis Eosinophilic esophagitis- Primary documented in this encounter [facility] note* Diagnosis Mild intermittent asthma without complication- Primary Unspecified asthma Eosinophilic esophagitis Obesity, Class I, BMI 30-34.9 Obesity, unspecified THA (generalized anxiety disorder) Generalized anxiety disorder * Assessment & Plan Note - Lupe Sanchez PA-C - 03/16/2024 3:09 PM EDT Associated Problem(s): THA (generalized anxiety disorder) -on Zoloft * Assessment & Plan Note - Lupe Sanchez PA-C - 03/16/2024 3:08 PM EDT Associated Problem(s): Obesity, Class I, BMI 30-34.9 -Body mass index is 30.08 kg/m . * Assessment & Plan Note - Lupe Sanchez PA-C - 03/16/2024 3:08 PM EDT Associated Problem(s): Eosinophilic esophagitis -on dupixent, PPI PRN -scheduled for EGD * Assessment & Plan Note - Lupe Sanchez PA-C - 03/16/2024 3:08 PM EDT Associated Problem(s): Asthma -stable on Singulair and albuterol PRN, uses inhaler 2-3 times per month on average -denies new or worsening cough or SOB [facility] Eosinophilic esophagitis [facility] Diagnosis Preop examination- Primary Preoperative examination, unspecified Mild intermittent asthma without complication Unspecified asthma GERD without esophagitis Esophageal reflux Chronic gout of multiple sites, unspecified cause THA (generalized anxiety disorder) Generalized anxiety disorder Mild intermittent asthma without complication- Primary Unspecified asthma Eosinophilic esophagitis Obesity, Class I, BMI 30-34.9 Obesity, unspecified THA (generalized anxiety disorder) Generalized anxiety disorder Numbness and tingling of hand- Primary [facility]* Diagnosis Preop examination- Primary Preoperative examination, unspecified Mild intermittent asthma without complication Unspecified asthma GERD without esophagitis Esophageal reflux Chronic gout of multiple sites, unspecified cause THA (generalized anxiety disorder) Generalized anxiety disorder Mild intermittent asthma without complication- Primary Unspecified asthma Eosinophilic esophagitis Obesity, Class I, BMI 30-34.9 Obesity, unspecified THA (generalized anxiety disorder) Generalized anxiety disorder Acute right-sided low back pain with right-sided sciatica [facility]* Diagnosis Preop examination- Primary Preoperative examination, unspecified Mild intermittent asthma without complication Unspecified asthma GERD without esophagitis Esophageal reflux Chronic gout of multiple sites, unspecified cause THA (generalized anxiety disorder) Generalized anxiety disorder Mild intermittent asthma without complication- Primary Unspecified asthma Eosinophilic esophagitis Obesity, Class I, BMI 30-34.9 Obesity, unspecified THA (generalized anxiety disorder) Generalized anxiety disorder Situational anxiety Other anxiety states documented [facility] this [facility]* Diagnosis Preop examination- Primary Preoperative examination, unspecified Mild intermittent asthma without complication Unspecified asthma GERD without esophagitis Esophageal reflux Chronic gout of multiple sites, unspecified cause THA (generalized anxiety disorder) Generalized anxiety disorder Mild intermittent asthma without complication- Primary Unspecified asthma Eosinophilic esophagitis Obesity, Class I, BMI 30-34.9 Obesity, unspecified THA (generalized anxiety disorder) Generalized anxiety disorder Well adult exam- Primary Routine general medical examination at a health care facility Acute right-sided low back pain with right-sided sciatica Situational insomnia Transient disorder of initiating or maintaining sleep Mild intermittent asthma without complication Unspecified asthma Eosinophilic esophagitis THA (generalized anxiety disorder) Generalized anxiety disorder Bloating Flatulence, eructation, and gas pain [facility]* Diagnosis Sprain of ligament of left ankle, subsequent encounter Injury of left ankle, subsequent encounter Preop examination- Primary Preoperative examination, unspecified Mild intermittent asthma without complication Unspecified asthma GERD without esophagitis Esophageal reflux Chronic gout of multiple sites, unspecified cause THA (generalized anxiety disorder) Generalized anxiety disorder Mild intermittent asthma without complication- Primary Unspecified asthma Eosinophilic esophagitis Obesity, Class I, BMI 30-34.9 Obesity, unspecified THA (generalized anxiety disorder) Generalized anxiety disorder documented in this encounter [facility] note* Diagnosis Preop examination- Primary Preoperative examination, unspecified Mild intermittent asthma without complication Unspecified asthma GERD without esophagitis Esophageal reflux Chronic gout of multiple sites, unspecified cause THA (generalized anxiety disorder) Generalized anxiety disorder Mild intermittent asthma without complication- Primary Unspecified asthma Eosinophilic esophagitis Obesity, Class I, BMI 30-34.9 Obesity, unspecified THA (generalized anxiety disorder) Generalized anxiety disorder Eosinophilic esophagitis documented in this encounter [facility] note* Diagnosis Situational anxiety- Primary Other anxiety states documented in this encounter [facility] note* Diagnosis Preop examination- Primary Preoperative examination, unspecified Mild intermittent asthma without complication Unspecified asthma GERD without esophagitis Esophageal reflux Chronic gout of multiple sites, unspecified cause THA (generalized anxiety disorder) Generalized anxiety disorder Mild intermittent asthma without complication- Primary Unspecified asthma Eosinophilic esophagitis Obesity, Class I, BMI 30-34.9 Obesity, unspecified THA (generalized anxiety disorder) Generalized anxiety disorder Acute cough- Primary Strep throat Streptococcal sore throat Acute cough documented in this encounter [facility] note* Diagnosis Preop examination- Primary Preoperative examination, unspecified Mild intermittent asthma without complication Unspecified asthma GERD without esophagitis Esophageal reflux Chronic gout of multiple sites, unspecified cause THA (generalized anxiety disorder) Generalized anxiety disorder Mild intermittent asthma without complication- Primary Unspecified asthma Eosinophilic esophagitis Obesity, Class I, BMI 30-34.9 Obesity, unspecified THA (generalized anxiety disorder) Generalized anxiety disorder Acute cough documented in this encounter [facility] note* Diagnosis Preop examination- Primary Preoperative examination, unspecified Mild intermittent asthma without complication Unspecified asthma GERD without esophagitis Esophageal reflux Chronic gout of multiple sites, unspecified cause THA (generalized anxiety disorder) Generalized anxiety disorder Mild intermittent asthma without complication- Primary Unspecified asthma Eosinophilic esophagitis Obesity, Class I, BMI 30-34.9 Obesity, unspecified THA (generalized anxiety disorder) Generalized anxiety disorder NO SHOW- Primary documented in this encounter [facility] note* Diagnosis Preop examination- Primary Preoperative examination, unspecified Mild intermittent asthma without complication Unspecified asthma GERD without esophagitis Esophageal reflux Chronic gout of multiple sites, unspecified cause THA (generalized anxiety disorder) Generalized anxiety disorder Mild intermittent asthma without complication- Primary Unspecified asthma Eosinophilic esophagitis Obesity, Class I, BMI 30-34.9 Obesity, unspecified THA (generalized anxiety disorder) Generalized anxiety disorder Loose stools- Primary Abnormal feces Situational insomnia Transient disorder of initiating or maintaining sleep Situational anxiety Other anxiety states Eosinophilic esophagitis THA (generalized anxiety disorder) Generalized anxiety disorder Situational depression Adjustment disorder with depressed mood [facility]* Diagnosis Preop examination- Primary Preoperative examination, unspecified Mild intermittent asthma without complication Unspecified asthma GERD without esophagitis Esophageal reflux Chronic gout of multiple sites, unspecified cause THA (generalized anxiety disorder) Generalized anxiety disorder Mild intermittent asthma without complication- Primary Unspecified asthma Eosinophilic esophagitis Obesity, Class I, BMI 30-34.9 Obesity, unspecified THA (generalized anxiety disorder) Generalized anxiety disorder Situational insomnia Transient disorder of initiating or maintaining sleep documented [facility]* Diagnosis Preop examination- Primary Preoperative examination, unspecified Mild intermittent asthma without complication Unspecified asthma GERD without esophagitis Esophageal reflux Chronic gout of multiple sites, unspecified cause THA (generalized anxiety disorder) Generalized anxiety disorder Mild intermittent asthma without complication- Primary Unspecified asthma Eosinophilic esophagitis Obesity, Class I, BMI 30-34.9 Obesity, unspecified THA (generalized anxiety disorder) Generalized anxiety disorder Blood in stool- Primary Situational anxiety Other anxiety states documented in this encounter [facility]* Diagnosis Preop examination- Primary Preoperative examination, unspecified Mild intermittent asthma without complication Unspecified asthma GERD without esophagitis Esophageal reflux Chronic gout of multiple sites, unspecified cause THA (generalized anxiety disorder) Generalized anxiety disorder Mild intermittent asthma without complication- Primary Unspecified asthma Eosinophilic esophagitis Obesity, Class I, BMI 30-34.9 Obesity, unspecified THA (generalized anxiety disorder) Generalized anxiety disorder Rectal bleeding- Primary Hemorrhage of rectum and anus documented in this [facility]* Diagnosis Preop examination- Primary Preoperative examination, unspecified Mild intermittent asthma without complication Unspecified asthma GERD without esophagitis Esophageal reflux Chronic gout of multiple sites, unspecified cause THA (generalized anxiety disorder) Generalized anxiety disorder Mild intermittent asthma without complication- Primary Unspecified asthma Eosinophilic esophagitis Obesity, Class I, BMI 30-34.9 Obesity, unspecified THA (generalized anxiety disorder) Generalized anxiety disorder Rectal bleeding- Primary Hemorrhage of rectum and anus documented [facility]* Diagnosis Preop examination- Primary Preoperative examination, unspecified Mild intermittent asthma without complication Unspecified asthma GERD without esophagitis Esophageal reflux Chronic gout of multiple sites, unspecified cause THA (generalized anxiety disorder) Generalized anxiety disorder Mild intermittent asthma without complication- Primary Unspecified asthma Eosinophilic esophagitis Obesity, Class I, BMI 30-34.9 Obesity, unspecified THA (generalized anxiety disorder) Generalized anxiety disorder Rectal bleeding Hemorrhage of rectum and anus documented [facility]* Diagnosis Preop examination- Primary Preoperative examination, unspecified Mild intermittent asthma without complication (HCC) Unspecified asthma GERD without esophagitis Esophageal reflux Chronic gout of multiple sites, unspecified cause THA (generalized anxiety disorder) Generalized anxiety disorder Mild intermittent asthma without complication (HCC)- Primary Unspecified asthma Eosinophilic esophagitis Obesity, Class I, BMI 30-34.9 Obesity, unspecified THA (generalized anxiety disorder) Generalized anxiety disorder Situational anxiety Other anxiety states documented in this encounter [facility]* Diagnosis Preop examination- Primary Preoperative examination, unspecified Mild intermittent asthma without complication (HCC) Unspecified asthma GERD without esophagitis Esophageal reflux Chronic gout of multiple sites, unspecified cause THA (generalized anxiety disorder) Generalized anxiety disorder Mild intermittent asthma without complication (HCC)- Primary Unspecified asthma Eosinophilic esophagitis Obesity, Class I, BMI 30-34.9 Obesity, unspecified THA (generalized anxiety disorder) Generalized anxiety disorder Chills (without fever)- Primary Family history of thyroid disorder Family history of other endocrine and metabolic diseases S/P arthroscopic surgery of left knee Other postprocedural status Wound infection after surgery Other postoperative infection Nausea Nausea alone documented in this encounter [facility]* Diagnosis Preop examination- Primary Preoperative examination, unspecified Mild intermittent asthma without complication (HCC) Unspecified asthma GERD without esophagitis Esophageal reflux Chronic gout of multiple sites, unspecified cause THA (generalized anxiety disorder) Generalized anxiety disorder Mild intermittent asthma without complication (HCC)- Primary Unspecified asthma Eosinophilic esophagitis Obesity, Class I, BMI 30-34.9 Obesity, unspecified THA (generalized anxiety disorder) Generalized anxiety disorder Leukocytosis, unspecified type- Primary documented in this encounter [facility] note* Diagnosis Preop examination- Primary Preoperative examination, unspecified Mild intermittent asthma without complication (HCC) Unspecified asthma GERD without esophagitis Esophageal reflux Chronic gout of multiple sites, unspecified cause THA (generalized anxiety disorder) Generalized anxiety disorder Mild intermittent asthma without complication (HCC)- Primary Unspecified asthma Eosinophilic esophagitis Obesity, Class I, BMI 30-34.9 Obesity, unspecified THA (generalized anxiety disorder) Generalized anxiety disorder Esophageal dysphagia- Primary Dysphagia, pharyngoesophageal phase documented in this encounter [facility] note* Diagnosis Preop examination- Primary Preoperative examination, unspecified Mild intermittent asthma without complication (HCC) Unspecified asthma GERD without esophagitis Esophageal reflux Chronic gout of multiple sites, unspecified cause THA (generalized anxiety disorder) Generalized anxiety disorder Mild intermittent asthma without complication (HCC)- Primary Unspecified asthma Eosinophilic esophagitis Obesity, Class I, BMI 30-34.9 Obesity, unspecified THA (generalized anxiety disorder) Generalized anxiety disorder Arthralgia, unspecified joint- Primary Situational anxiety Other anxiety states THA (generalized anxiety disorder) Generalized anxiety disorder Situational depression Adjustment disorder with depressed mood Bilateral leg edema Edema Eosinophilic esophagitis Internal hemorrhoids Internal hemorrhoids without mention of complication documented in this encounter [facility] note* Diagnosis Preop examination- Primary Preoperative examination, unspecified Mild intermittent asthma without complication (HCC) Unspecified asthma GERD without esophagitis Esophageal reflux Chronic gout of multiple sites, unspecified cause THA (generalized anxiety disorder) Generalized anxiety disorder Mild intermittent asthma without complication (HCC)- Primary Unspecified asthma Eosinophilic esophagitis Obesity, Class I, BMI 30-34.9 Obesity, unspecified THA (generalized anxiety disorder) Generalized anxiety disorder Situational insomnia Transient disorder of initiating or maintaining sleep documented in this encounter [facility] note* Diagnosis Preop examination- Primary Preoperative examination, unspecified Mild intermittent asthma without complication (HCC) Unspecified asthma GERD without esophagitis Esophageal reflux Chronic gout of multiple sites, unspecified cause THA (generalized anxiety disorder) Generalized anxiety disorder Mild intermittent asthma without complication (HCC)- Primary Unspecified asthma Eosinophilic esophagitis Obesity, Class I, BMI 30-34.9 Obesity, unspecified THA (generalized anxiety disorder) Generalized anxiety disorder Esophageal dysphagia- Primary Dysphagia, pharyngoesophageal phase Eosinophilic esophagitis documented in this encounter [facility] note* Diagnosis Preop examination- Primary Preoperative examination, unspecified Mild intermittent asthma without complication (HCC) Unspecified asthma GERD without esophagitis Esophageal reflux Chronic gout of multiple sites, unspecified cause THA (generalized anxiety disorder) Generalized anxiety disorder Mild intermittent asthma without complication (HCC)- Primary Unspecified asthma Eosinophilic esophagitis Obesity, Class I, BMI 30-34.9 Obesity, unspecified THA (generalized anxiety disorder) Generalized anxiety disorder Arthralgia, unspecified joint documented in this encounter [facility] note* Diagnosis Preop examination- Primary Preoperative examination, unspecified Mild intermittent asthma without complication (HCC) Unspecified asthma GERD without esophagitis Esophageal reflux Chronic gout of multiple sites, unspecified cause THA (generalized anxiety disorder) Generalized anxiety disorder Mild intermittent asthma without complication (HCC)- Primary Unspecified asthma Eosinophilic esophagitis Obesity, Class I, BMI 30-34.9 Obesity, unspecified THA (generalized anxiety disorder) Generalized anxiety disorder Bilateral leg edema Edema documented in this encounter [facility] note* Diagnosis Preop examination- Primary Preoperative examination, unspecified Mild intermittent asthma without complication (HCC) Unspecified asthma GERD without esophagitis Esophageal reflux Chronic gout of multiple sites, unspecified cause THA (generalized anxiety disorder) Generalized anxiety disorder Mild intermittent asthma without complication (HCC)- Primary Unspecified asthma Eosinophilic esophagitis Obesity, Class I, BMI 30-34.9 Obesity, unspecified THA (generalized anxiety disorder) Generalized anxiety disorder Situational anxiety Other anxiety states documented in this encounter [facility] note* Diagnosis Preop examination- Primary Preoperative examination, unspecified Mild intermittent asthma without complication (HCC) Unspecified asthma GERD without esophagitis Esophageal reflux Chronic gout of multiple sites, unspecified cause THA (generalized anxiety disorder) Generalized anxiety disorder Mild intermittent asthma without complication (HCC)- Primary Unspecified asthma Eosinophilic esophagitis Obesity, Class I, BMI 30-34.9 Obesity, unspecified THA (generalized anxiety disorder) Generalized anxiety disorder Acute non-recurrent pansinusitis- Primary PND (post-nasal drip) Postnasal drip Body aches Generalized pain documented in this encounter [facility] note* Diagnosis Preop examination- Primary Preoperative examination, unspecified Mild intermittent asthma without complication (HCC) Unspecified asthma GERD without esophagitis Esophageal reflux Chronic gout of multiple sites, unspecified cause THA (generalized anxiety disorder) Generalized anxiety disorder Mild intermittent asthma without complication (HCC)- Primary Unspecified asthma Eosinophilic esophagitis Obesity, Class I, BMI 30-34.9 Obesity, unspecified THA (generalized anxiety disorder) Generalized anxiety disorder Acute non-recurrent pansinusitis- Primary PND (post-nasal drip) Postnasal drip Body aches Generalized pain documented in this encounter [facility] Discharge instructions Additional Instructions I would treat this as an ankle sprain with rest, ice, elevation, ibuprofen every 6 hours as needed. Use the Aircast until its feeling improved.[facility] Work Phone: [facility] (narrative)* Outpatient Procedure (Routine) - Closed Specialty Diagnoses / Procedures Referred By Contac t Referred To Contact [facility] Diagnoses Eosinophilic esophagitis Procedures EGD - THERAPEUTIC, EUS, OR TUBE INTERVENTIONS EGD DILATION GASTRIC/DUODENAL STRICTURE Robi Hendrickson MD [address] [place] [address] [place] [phone] Referral ID Status Reason Start Date Expiration Date V isits Requested Visits Authorized [id number] Closed Auto-Generate d Referral 11/30/2021 11/30/2022 1 1 [facility] for [facility] (narrative)* Outpatient Procedure (Routine) - Pending Review Specialty Diagnoses / Procedures [facility] Diagnoses Esophagitis, eosinophilic Procedures EGD - THERAPEUTIC, EUS, OR TUBE INTERVENTIONS EGD DILATION GASTRIC/DUODENAL STRICTURE Robi Hendrickson MD [address] [place] [address] [address] Referral ID Status Reason Start Date Expiration Date Visits Requested Visits Authorized [id number] Pending Review Auto-Generat ed Referral 06/29/2022 06/29/2023 1 1 T [facility] for referral (narrative)* Outpatient Procedure (Routine) - Closed Specialty Diagnoses / Procedures [facility] Diagnoses Esophagitis, eosinophilic Procedures EGD - THERAPEUTIC, EUS, OR TUBE INTERVENTIONS EGD DILATION GASTRIC/DUODENAL STRICTURE Robi Hendrickson MD [address] [place] [address] [address] Referral ID Status Reason Start Date Expiration Date V isits Requested Visits Authorized [id number] Closed Auto-Generate d Referral 06/29/2022 06/29/2023 1 1 [facility] for referral (narrative)* Diagnostic Procedure Only (Routine) - Closed Specialty Diagnoses / Procedures Referred By Contac t Referred To Contact XR IMAGING Diagnoses Sprain of ligament of left ankle, subsequent encounter Injury of left ankle, subsequent encounter Procedures XR ANKLE GENERAL 3V AP/LAT/OBL LEFT RADEX ANKLE COMPLETE MINIMUM 3 VIEWS Shelly Broderick, MASOUD.EMERY GRINDER [address] [place] [address] Xr Imaging Referral ID Status Reason Start Date Expiration Date V isits Requested Visits Authorized [id number] Closed Auto-Generate d Referral 12/13/2022 01/12/2024 1 1 [facility] for referral (narrative)* Outpatient Procedure (Routine) - Closed Specialty Diagnoses / Procedures Referred By Contac t Referred To Contact ENDOSCOPY Diagnoses Eosinophilic esophagitis Procedures EGD - THERAPEUTIC, EUS, OR TUBE INTERVENTIONS EGD DILATION GASTRIC/DUODENAL STRICTURE Robi Hendrickson MD [address] [place] [address] [place] [address] Endoscopy [address] [place] [phone] Referral ID Status Reason Start Date Expiration Date V isits Requested Visits Authorized [id number] Closed Auto-Generate d Referral 03/11/2023 03/11/2024 1 1 [facility] for referral (narrative)* Outpatient Procedure (Routine) - Closed Specialty Diagnoses / Procedures Referred By Contac t Referred To Contact [facility] Diagnoses Esophageal stenosis Procedures EGD - THERAPEUTIC, EUS, OR TUBE INTERVENTIONS EGD DILATION GASTRIC/DUODENAL STRICTURE Robi Hendrickson MD [address] [place] [address] [facility] [address] [place] [id number] Referral ID Status Reason Start Date Expiration Date V isits Requested Visits Authorized [id number] Closed Auto-Generate d Referral 07/12/2023 08/28/2023 1 1 [facility] for referral (narrative)* Outpatient Procedure (Routine) - Pending Review Specialty Diagnoses / Procedures Referred By Contac t Referred To Contact [facility] Diagnoses Eosinophilic esophagitis Procedures EGD - THERAPEUTIC, EUS, OR TUBE INTERVENTIONS EGD DILATION GASTRIC/DUODENAL STRICTURE Robi Hendrickson MD [address] [place] [address] [place] [address] Referral ID Status Reason Start Date Expiration Date Visits Requested Visits Authorized [id number] Pending Review Auto-Generat ed Referral 11/07/2023 11/06/2024 1 1 T [facility] for referral (narrative)* Outpatient Procedure (Routine) - Closed Specialty Diagnoses / Procedures Referred By Contac t Referred To Contact [facility] Diagnoses Eosinophilic esophagitis Procedures EGD - THERAPEUTIC, EUS, OR TUBE INTERVENTIONS EGD DILATION GASTRIC/DUODENAL STRICTURE Robi Hendrickson MD [address] [place] [address] [address] Referral ID Status Reason Start Date Expiration Date V isits Requested Visits Authorized [id number] Closed Auto-Generate d Referral 12/20/2023 08/28/2024 1 1 [facility] for referral (narrative)* Outpatient Procedure (Routine) - Pending Review Specialty Diagnoses / Procedures Referred By Contac t Referred To Contact [facility] Diagnoses Eosinophilic esophagitis Procedures EGD - THERAPEUTIC, EUS, OR TUBE INTERVENTIONS EGD DILATION GASTRIC/DUODENAL STRICTURE Robi Hendrickson MD [address] [place] [address] [place] [address] Referral ID Status Reason Start Date Expiration Date Visits Requested Visits Authorized [id number] Pending Review Auto-Generat ed Referral 02/14/2024 02/13/2025 1 1 [facility] for referral (narrative)* Outpatient Procedure (Routine) - Closed Specialty Diagnoses / Procedures Referred By Contac t Referred To Contact [facility] Diagnoses Eosinophilic esophagitis Procedures EGD - THERAPEUTIC, EUS, OR TUBE INTERVENTIONS EGD DILATION GASTRIC/DUODENAL STRICTURE Robi Hendrickson MD [address] [place] [address] [facility] [address] [place], [place] [phone] Referral ID Status Reason Start Date Expiration Date V isits Requested Visits Authorized [id number] Closed Auto-Generate d Referral 02/16/2024 08/28/2024 1 1 [facility] for referral (narrative)* Outpatient Procedure (Routine) - Pending Review Specialty Diagnoses / Procedures Referred By Contac t Referred [facility] Diagnoses Numbness and tingling of hand Procedures EMG(NEURO/NI) NERVE CONDUCTION STUDIES 9-10 STUDIES Sweetie Tyson APRN.CNP [address] [place] [address] [facility] [address] [place] [address] Referral ID Status Reason Start Date Expiration Date Visits Requested Visits Authorized [id number] Pending Review Auto-Generat ed Referral 04/18/2024 04/18/2025 1 1 [facility] for referral (narrative)* Diagnostic Procedure Only (Routine) - Closed Specialty Diagnoses / Procedures Referred By Contac t Referred To Contact XR IMAGING Diagnoses Sprain of ligament of left ankle, subsequent encounter Injury of left ankle, subsequent encounter Procedures XR ANKLE GENERAL 3V AP/LAT/OBL LEFT RADEX ANKLE COMPLETE MINIMUM 3 VIEWS Shelly Broderick, ISMAEL [address] [place] [address] [place] [phone] Referral ID Status Reason Start Date Expiration Date V isits Requested Visits Authorized [id number] Closed Auto-Generate d Referral 12/13/2022 01/12/2024 1 1 [facility] for referral (narrative)* Outpatient Procedure (Routine) - Closed Specialty Diagnoses / Procedures Referred By Contac t Referred To [facility] Diagnoses Eosinophilic esophagitis Procedures EGD - THERAPEUTIC, EUS, OR TUBE INTERVENTIONS EGD DILATION GASTRIC[place] [address] [place], [place] [id number] [place] [address] Referral ID Status Reason Start Date Expiration Date V isits Requested Visits Authorized [id number] Closed Auto-Generate d Referral 05/17/2024 08/28/2024 1 1 [facility] for referral (narrative)No reason for referral information availableWTri[facility] Work [facility]: Reason for visit Narrative* Outpatient Procedure (Routine) - Closed Specialty Diagnoses / Procedures Referred By Contac t Referred To [facility] Diagnoses Eosinophilic esophagitis Procedures EGD - THERAPEUTIC, EUS, OR TUBE INTERVENTIONS EGD DILATION GASTRIC/DUODENAL STRICTURE Robi Hendrickson MD [address] [place] [phone] [place] [phone] Referral ID Status Reason Start Date Expiration Date V isits Requested Visits Authorized [id number] Closed Auto-Generate d Referral 11/30/2021 11/30/2022 1 1 [facility] for visit Narrative* Outpatient Procedure (Routine) - Closed Specialty Diagnoses / Procedures Referred By Contac t Referred To [facility] Diagnoses Esophagitis, eosinophilic Procedures EGD - THERAPEUTIC, EUS, OR TUBE INTERVENTIONS EGD DILATION GASTRIC/DUODENAL STRICTURE Robi Hendrickson MD [address] [place] [address] [address] Referral ID Status Reason Start Date Expiration Date V isits Requested Visits Authorized [id number] Closed Auto-Generate d Referral 06/29/2022 06/29/2023 1 1 [facility] for visit Narrative* Outpatient Procedure (Routine) - Closed Specialty Diagnoses / Procedures Referred By Contac t Referred To Contact ENDOSCOPY Diagnoses Eosinophilic esophagitis Procedures EGD - THERAPEUTIC, EUS, OR TUBE INTERVENTIONS EGD DILATION GASTRIC[place] [address] [place] [address] [place] [address] Endoscopy [address] [place] [address] Referral ID Status Reason Start Date Expiration Date V isits Requested Visits Authorized [id number] Closed Auto-Generate d Referral 03/11/2023 03/11/2024 1 1 [facility] for visit Narrative* Outpatient Procedure (Routine) - Closed Specialty Diagnoses / Procedures Referred By Contac t Referred To Contact [facility] Diagnoses Esophageal stenosis Procedures EGD - THERAPEUTIC, EUS, OR TUBE INTERVENTIONS EGD DILATION GASTRIC/DUODENAL STRICTURE Robi Hendrickson MD [address] [place] [address] [address] Referral ID Status Reason Start Date Expiration Date V isits Requested Visits Authorized [id number] Closed Auto-Generate d Referral 07/12/2023 08/28/2023 1 1 [facility] for visit Narrative* Outpatient Procedure (Routine) - Closed Specialty Diagnoses / Procedures Referred By Contac t Referred To Contact [facility] Diagnoses Eosinophilic esophagitis Procedures EGD - THERAPEUTIC, EUS, OR TUBE INTERVENTIONS EGD DILATION GASTRIC/[place] [address] [place] [address] [address] [address] Referral ID Status Reason Start Date Expiration Date V isits Requested Visits Authorized [id number] Closed Auto-Generate d Referral 12/20/2023 08/28/2024 1 1 [facility] for visit Narrative* Outpatient Procedure (Routine) - Closed Specialty Diagnoses / Procedures Referred By Contac t Referred To Contact [facility] Diagnoses Eosinophilic esophagitis Procedures EGD - THERAPEUTIC, EUS, OR TUBE INTERVENTIONS EGD DILATION GASTRIC/DUODENAL STRICTURE Robi Hendrickson MD [address] [place], [place] [id number] [address] [address] Referral ID Status Reason Start Date Expiration Date V isits Requested Visits Authorized [id number] Closed Auto-Generate d Referral 02/16/2024 08/28/2024 1 1 [facility] for visit Narrative* Diagnostic Procedure Only (Routine) - Closed Specialty Diagnoses / Procedures Referred By Contac t Referred To Contact XR IMAGING Diagnoses Sprain of ligament of left ankle, subsequent encounter Injury of left ankle, subsequent encounter Procedures XR ANKLE GENERAL 3V AP/LAT/OBL LEFT RADEX ANKLE COMPLETE MINIMUM 3 VIEWS Shelly Broderick, ANTHROPOLOGY INSTRUCTOR.EMERY GRINDER [address] [place] [address] Xr Imaging [id number] Referral ID Status Reason Start Date Expiration Date V isits Requested Visits Authorized [id number] Closed Auto-Generate d Referral 12/13/2022 01/12/2024 1 1 [facility] for visit Narrative* Outpatient Procedure (Routine) - Closed Specialty Diagnoses / Procedures Referred By Contac t Referred To Contact [facility] Diagnoses Eosinophilic esophagitis Procedures EGD - THERAPEUTIC, EUS, OR TUBE INTERVENTIONS EGD DILATION GASTRIC/DUODENAL STRICTURE Robi Hendrickson MD [address] [place] [address] [address] Referral ID Status Reason Start Date Expiration Date V isits Requested Visits Authorized [id number] Closed Auto-Generate d Referral 05/17/2024 08/28/2024 1 1 [facility] for visit Narrative* Outpatient Procedure (Routine) - Closed Specialty Diagnoses / Procedures Referred By Kourtney velasquez Referred To Contact [facility] Diagnoses Rectal bleeding Procedures COLONOSCOPY DIAGNOSTIC COLONOSCOPY FLX DX W/COLLJ SPEC WHEN PFRMD Robi Hendrickson MD [address] [place] [address] Phone: tel: fax: [facility] [address] [place] [address] Referral ID Status Reason Start Date Expiration Date V isits Requested Visits Authorized [id number] Closed Auto-Generate d Referral 11/06/2024 11/06/2025 1 1 [facility] for visit Narrative* Outpatient Procedure (Routine) - Pending Review Specialty Diagnoses / Procedures Referred By Kourtney velasquez Referred To Contact [facility] Diagnoses Eosinophilic esophagitis Procedures EGD - THERAPEUTIC, EUS, OR TUBE INTERVENTIONS EGD DILATION GASTRIC/DUODENAL STRICTURE Robi Hendrickson MD [address] [place] [address] Phone: tel: fax: [facility] [address] [place] [address] Referral ID Status Reason Start Date Expiration Date Visits Requested Visits Authorized [id number] Pending Review Auto-Genera florinda Referral Patient Cleared - Admin/Chair man/Directo r advise to proceed or did not respond 12/19/2024 12/19/2025 1 1 [facility] Summary Purpose Family History No Family History Records FoundNo Family History Records FoundNo Family History Records FoundNo Family History Records FoundNo Family History Records Found Advance Directives No Advanced Directives Records FoundDocuments on File Type Date Recorded 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 Advance Directive(s) 01/21/2021 8:17 AM Advance Directive(s) 11/19/2020 12:30 PM Advance Directive(s) 10/22/2020 9:11 AM Advance Directive(s) 05/20/2018 1:09 PM Advance Directive Response Recorded Date/ Time Advance Directives No October 05, 2019 1:34pm Living Will No November 07, 2022 7:33pm Power of Registration Representative No November 07 7:33pm Advance Directive Response Recorded Date/ Time Advance Directives No October 05, 2019 1:34pm Living Will No December 05, 2022 5:28pm Power of Registration Representative No December 05 5:28pm Advance Directive Response Recorded Date/ Time Advance Directives No October 05, 2019 1:34pm Living Will No October 04 11:21am Power of Registration Representative No October 04, 2023 11:21am Advance Directive Response Recorded Date/ Time Living Will No September 16 12:46am Do you have a Healthcare Power of Registration Representative? No September 16, 2024 12:46am Living Will No November 27, 2024 3:48pm Do you have a Healthcare Power of Registration Representative? No November 27, 2024 3:48pm Advance Directives No October 05, 2019 1:34pm Medications Administered Section Inactive Administered Medications - up to 3 most recent administrations Medication Order MAR Action Action Date Dose Rate Site lactated ringers iv infusion 30 mL/hr, INTRAVENOUS, CONTINUOUS, Starting on Tue05/18/22 at 1530, Until Tue05/19/22 at 0414, Preprocedure New Bag/Syringe/Bottle 05/18/2022 3:37 PM EDT 30 mL/hr 30 mL/hr Chief Complaint and Reason for Visit Chief Complaint LOWER EXTREMITY PAIN Chief Complaint LOWER EXTREMITY PAIN LOWER Chief Complaint HEAD INJURY SPRAIN RIGHT KNEE Chief Complaint Admit Date PE/NON DOT/DRUG SCREEN/PRC [place] Dece mber 2023 8:50am l knee September 15, 2024 1 1:46pm SWELLING IN KNEE November 27, 2024 3:36 pm Reason for Referral Specialty Diagnoses / Procedures Referred By Kourtney velasquez Referred To Contact Endocrinology Diagnoses Low testosterone Procedures CONSULT TO ENDOCRINOLOGY OFFICE/OUTPATIENT [facility] MDM 60-74 MINUTES Simba Horton, DO [address] [place] [address] Referral ID Status Reason Start Date Expiration Date Visits Requested Visits Authorized [id number] Authorized PCP Requested Referral 05/18/2023 05/17/2024 1 1 Additional Source Comments (unrecognized sect ion and content) No Status Records FoundNo Status Records FoundNo Status Records FoundNo Status Records FoundNo Status Records Found INFORMATION SOURCE (unrecogn ized section and content) DATE CREATED AUTHOR 06/18/2018 [facility] DATE CREATED AUTHOR AUTHOR'S ORGANIZ ATION 07/19/2018 [facility] DATE CREATED AUTHOR AUTHOR'S ORGANIZ ATION 01/24/2021 [facility] DATE CREATED AUTHOR AUTHOR'S ORGANIZ ATION 04/26/2025 [facility] DATE CREATED AUTHOR AUTHOR'S ORGANIZ ATION 05/04/2025 [facility] Source Comments (unrecognize d section and content) In the event this informatio n is protected by the Federal Confidentiality of Alcohol and Drug Abuse Patient Records regulations: The Federal rules restrict any use of the information to criminally investigate or prosecute any alcohol or drug abuse patient.[facility] the event this information is protected by the Federal Confidentiality of Alcohol and Drug Abuse Patient Records regulations: The Federal rules restrict any use of the information to criminally investigate or prosecute any alcohol or drug abuse patient.[facility]In the event this information is protected by the Federal Confidentiality of Alcohol and Drug Abuse Patient Records regulations: The Federal rules restrict any use of the information to criminally investigate or prosecute any alcohol or drug abuse patient.[facility]In the event this information is protected by the Federal Confidentiality of Alcohol and Drug Abuse Patient Records regulations: The Federal rules restrict any use of the information to criminally investigate or prosecute any alcohol or drug abuse patient.[facility]edoIn the event this information is protected by the Federal Confidentiality of Alcohol and Drug Abuse Patient Records regulations: The Federal rules restrict any use of the information to criminally investigate or prosecute any alcohol or drug abuse patient.[facility]edoIn the event this information is protected by the Federal Confidentiality of Alcohol and Drug Abuse Patient Records regulations: The Federal rules restrict any use of the information to criminally investigate or prosecute any alcohol or drug abuse patient.[facility]edoIn the event this information is protected by the Federal Confidentiality of Alcohol and Drug Abuse Patient Records regulations: The Federal rules restrict any use of the information to criminally investigate or prosecute any alcohol or drug abuse patient.[facility]edoIn the event this information is protected by the Federal Confidentiality of Alcohol and Drug Abuse Patient Records regulations: The Federal rules restrict any use of the information to criminally investigate or prosecute any alcohol or drug abuse patient.[facility]edoIn the event this information is protected by the Federal Confidentiality of Alcohol and Drug Abuse Patient Records regulations: The Federal rules restrict any use of the information to criminally investigate or prosecute any alcohol or drug abuse patient.[facility]edoIn the event this information is protected by the Federal Confidentiality of Alcohol and Drug Abuse Patient Records regulations: The Federal rules restrict any use of the information to criminally investigate or prosecute any alcohol or drug abuse patient.[facility]edoIn the event this information is protected by the Federal Confidentiality of Alcohol and Drug Abuse Patient Records regulations: The Federal rules restrict any use of the information to criminally investigate or prosecute any alcohol or drug abuse patient.[facility]edoIn the event this information is protected by the Federal Confidentiality of Alcohol and Drug Abuse Patient Records regulations: The Federal rules restrict any use of the information to criminally investigate or prosecute any alcohol or drug abuse patient.[facility]edoIn the event this information is protected by the Federal Confidentiality of Alcohol and Drug Abuse Patient Records regulations: The Federal rules restrict any use of the information to criminally investigate or prosecute any alcohol or drug abuse patient.[facility]edoIn the event this information is protected by the Federal Confidentiality of Alcohol and Drug Abuse Patient Records regulations: The Federal rules restrict any use of the information to criminally investigate or prosecute any alcohol or drug abuse patient.[facility]edoIn the event this information is protected by the Federal Confidentiality of Alcohol and Drug Abuse Patient Records regulations: The Federal rules restrict any use of the information to criminally investigate or prosecute any alcohol or drug abuse patient.[facility]edoIn the event this information is protected by the Federal Confidentiality of Alcohol and Drug Abuse Patient Records regulations: The Federal rules restrict any use of the information to criminally investigate or prosecute any alcohol or drug abuse patient.[facility]edoIn the event this information is protected by the Federal Confidentiality of Alcohol and Drug Abuse Patient Records regulations: The Federal rules restrict any use of the information to criminally investigate or prosecute any alcohol or drug abuse patient.[facility]edoIn the event this information is protected by the Federal Confidentiality of Alcohol and Drug Abuse Patient Records regulations: The Federal rules restrict any use of the information to criminally investigate or prosecute any alcohol or drug abuse patient.[facility]edoIn the event this information is protected by the Federal Confidentiality of Alcohol and Drug Abuse Patient Records regulations: The Federal rules restrict any use of the information to criminally investigate or prosecute any alcohol or drug abuse patient.[facility]edoIn the event this information is protected by the Federal Confidentiality of Alcohol and Drug Abuse Patient Records regulations: The Federal rules restrict any use of the information to criminally investigate or prosecute any alcohol or drug abuse patient.[facility]edoIn the event this information is protected by the Federal Confidentiality of Alcohol and Drug Abuse Patient Records regulations: The Federal rules restrict any use of the information to criminally investigate or prosecute any alcohol or drug abuse patient.[facility]edoIn the event this information is protected by the Federal Confidentiality of Alcohol and Drug Abuse Patient Records regulations: The Federal rules restrict any use of the information to criminally investigate or prosecute any alcohol or drug abuse patient.[facility]edoIn the event this information is protected by the Federal Confidentiality of Alcohol and Drug Abuse Patient Records regulations: The Federal rules restrict any use of the information to criminally investigate or prosecute any alcohol or drug abuse patient.[facility]edoIn the event this information is protected by the Federal Confidentiality of Alcohol and Drug Abuse Patient Records regulations: The Federal rules restrict any use of the information to criminally investigate or prosecute any alcohol or drug abuse patient.[facility]edoIn the event this information is protected by the Federal Confidentiality of Alcohol and Drug Abuse Patient Records regulations: The Federal rules restrict any use of the information to criminally investigate or prosecute any alcohol or drug abuse patient.[facility]edoIn the event this information is protected by the Federal Confidentiality of Alcohol and Drug Abuse Patient Records regulations: The Federal rules restrict any use of the information to criminally investigate or prosecute any alcohol or drug abuse patient.[facility]edoIn the event this information is protected by the Federal Confidentiality of Alcohol and Drug Abuse Patient Records regulations: The Federal rules restrict any use of the information to criminally investigate or prosecute any alcohol or drug abuse patient.[facility]edoIn the event this information is protected by the Federal Confidentiality of Alcohol and Drug Abuse Patient Records regulations: The Federal rules restrict any use of the information to criminally investigate or prosecute any alcohol or drug abuse patient.[facility]edoIn the event this information is protected by the Federal Confidentiality of Alcohol and Drug Abuse Patient Records regulations: The Federal rules restrict any use of the information to criminally investigate or prosecute any alcohol or drug abuse patient.[facility]edoIn the event this information is protected by the Federal Confidentiality of Alcohol and Drug Abuse Patient Records regulations: The Federal rules restrict any use of the information to criminally investigate or prosecute any alcohol or drug abuse patient.[facility]edoIn the event this information is protected by the Federal Confidentiality of Alcohol and Drug Abuse Patient Records regulations: The Federal rules restrict any use of the information to criminally investigate or prosecute any alcohol or drug abuse patient.[facility]edoIn the event this information is protected by the Federal Confidentiality of Alcohol and Drug Abuse Patient Records regulations: The Federal rules restrict any use of the information to criminally investigate or prosecute any alcohol or drug abuse patient.[facility]edoIn the event this information is protected by the Federal Confidentiality of Alcohol and Drug Abuse Patient Records regulations: The Federal rules restrict any use of the information to criminally investigate or prosecute any alcohol or drug abuse patient.[facility]edoIn the event this information is protected by the Federal Confidentiality of Alcohol and Drug Abuse Patient Records regulations: The Federal rules restrict any use of the information to criminally investigate or prosecute any alcohol or drug abuse patient.[facility]edoIn the event this information is protected by the Federal Confidentiality of Alcohol and Drug Abuse Patient Records regulations: The Federal rules restrict any use of the information to criminally investigate or prosecute any alcohol or drug abuse patient.[facility]edoIn the event this information is protected by the Federal Confidentiality of Alcohol and Drug Abuse Patient Records regulations: The Federal rules restrict any use of the information to criminally investigate or prosecute any alcohol or drug abuse patient.[facility]edoIn the event this information is protected by the Federal Confidentiality of Alcohol and Drug Abuse Patient Records regulations: The Federal rules restrict any use of the information to criminally investigate or prosecute any alcohol or drug abuse patient.[facility]edoIn the event this information is protected by the Federal Confidentiality of Alcohol and Drug Abuse Patient Records regulations: The Federal rules restrict any use of the information to criminally investigate or prosecute any alcohol or drug abuse patient.[facility]edoIn the event this information is protected by the Federal Confidentiality of Alcohol and Drug Abuse Patient Records regulations: The Federal rules restrict any use of the information to criminally investigate or prosecute any alcohol or drug abuse patient.[facility]edoIn the event this information is protected by the Federal Confidentiality of Alcohol and Drug Abuse Patient Records regulations: The Federal rules restrict any use of the information to criminally investigate or prosecute any alcohol or drug abuse patient.[facility]edoIn the event this information is protected by the Federal Confidentiality of Alcohol and Drug Abuse Patient Records regulations: The Federal rules restrict any use of the information to criminally investigate or prosecute any alcohol or drug abuse patient.[facility]edoIn the event this information is protected by the Federal Confidentiality of Alcohol and Drug Abuse Patient Records regulations: The Federal rules restrict any use of the information to criminally investigate or prosecute any alcohol or drug abuse patient.[facility]edoIn the event this information is protected by the Federal Confidentiality of Alcohol and Drug Abuse Patient Records regulations: The Federal rules restrict any use of the information to criminally investigate or prosecute any alcohol or drug abuse patient.[facility]edoIn the event this information is protected by the Federal Confidentiality of Alcohol and Drug Abuse Patient Records regulations: The Federal rules restrict any use of the information to criminally investigate or prosecute any alcohol or drug abuse patient.[facility]edoIn the event this information is protected by the Federal Confidentiality of Alcohol and Drug Abuse Patient Records regulations: The Federal rules restrict any use of the information to criminally investigate or prosecute any alcohol or drug abuse patient.[facility]edoIn the event this information is protected by the Federal Confidentiality of Alcohol and Drug Abuse Patient Records regulations: The Federal rules restrict any use of the information to criminally investigate or prosecute any alcohol or drug abuse patient.[facility]edoIn the event this information is protected by the Federal Confidentiality of Alcohol and Drug Abuse Patient Records regulations: The Federal rules restrict any use of the information to criminally investigate or prosecute any alcohol or drug abuse patient.[facility]edoIn the event this information is protected by the Federal Confidentiality of Alcohol and Drug Abuse Patient Records regulations: The Federal rules restrict any use of the information to criminally investigate or prosecute any alcohol or drug abuse patient.[facility]edoIn the event this information is protected by the Federal Confidentiality of Alcohol and Drug Abuse Patient Records regulations: The Federal rules restrict any use of the information to criminally investigate or prosecute any alcohol or drug abuse patient.[facility]edoIn the event this information is protected by the Federal Confidentiality of Alcohol and Drug Abuse Patient Records regulations: The Federal rules restrict any use of the information to criminally investigate or prosecute any alcohol or drug abuse patient.[facility]edoIn the event this information is protected by the Federal Confidentiality of Alcohol and Drug Abuse Patient Records regulations: The Federal rules restrict any use of the information to criminally investigate or prosecute any alcohol or drug abuse patient.[facility]edoIn the event this information is protected by the Federal Confidentiality of Alcohol and Drug Abuse Patient Records regulations: The Federal rules restrict any use of the information to criminally investigate or prosecute any alcohol or drug abuse patient.[facility]edoIn the event this information is protected by the Federal Confidentiality of Alcohol and Drug Abuse Patient Records regulations: The Federal rules restrict any use of the information to criminally investigate or prosecute any alcohol or drug abuse patient.[facility]edoIn the event this information is protected by the Federal Confidentiality of Alcohol and Drug Abuse Patient Records regulations: The Federal rules restrict any use of the information to criminally investigate or prosecute any alcohol or drug abuse patient.[facility]edoIn the event this information is protected by the Federal Confidentiality of Alcohol and Drug Abuse Patient Records regulations: The Federal rules restrict any use of the information to criminally investigate or prosecute any alcohol or drug abuse patient.[facility]edoIn the event this information is protected by the Federal Confidentiality of Alcohol and Drug Abuse Patient Records regulations: The Federal rules restrict any use of the information to criminally investigate or prosecute any alcohol or drug abuse patient.[facility]edoIn the event this information is protected by the Federal Confidentiality of Alcohol and Drug Abuse Patient Records regulations: The Federal rules restrict any use of the information to criminally investigate or prosecute any alcohol or drug abuse patient.[facility]edoIn the event this information is protected by the Federal Confidentiality of Alcohol and Drug Abuse Patient Records regulations: The Federal rules restrict any use of the information to criminally investigate or prosecute any alcohol or drug abuse patient.[facility]edoIn the event this information is protected by the Federal Confidentiality of Alcohol and Drug Abuse Patient Records regulations: The Federal rules restrict any use of the information to criminally investigate or prosecute any alcohol or drug abuse patient.[facility]edoIn the event this information is protected by the Federal Confidentiality of Alcohol and Drug Abuse Patient Records regulations: The Federal rules restrict any use of the information to criminally investigate or prosecute any alcohol or drug abuse patient.[facility]edoIn the event this information is protected by the Federal Confidentiality of Alcohol and Drug Abuse Patient Records regulations: The Federal rules restrict any use of the information to criminally investigate or prosecute any alcohol or drug abuse patient.[facility]edoIn the event this information is protected by the Federal Confidentiality of Alcohol and Drug Abuse Patient Records regulations: The Federal rules restrict any use of the information to criminally investigate or prosecute any alcohol or drug abuse patient.[facility]edoIn the event this information is protected by the Federal Confidentiality of Alcohol and Drug Abuse Patient Records regulations: The Federal rules restrict any use of the information to criminally investigate or prosecute any alcohol or drug abuse patient.[facility]edoIn the event this information is protected by the Federal Confidentiality of Alcohol and Drug Abuse Patient Records regulations: The Federal rules restrict any use of the information to criminally investigate or prosecute any alcohol or drug abuse patient.[facility]edoIn the event this information is protected by the Federal Confidentiality of Alcohol and Drug Abuse Patient Records regulations: The Federal rules restrict any use of the information to criminally investigate or prosecute any alcohol or drug abuse patient.[facility]edoIn the event this information is protected by the Federal Confidentiality of Alcohol and Drug Abuse Patient Records regulations: The Federal rules restrict any use of the information to criminally investigate or prosecute any alcohol or drug abuse patient.[facility]edoIn the event this information is protected by the Federal Confidentiality of Alcohol and Drug Abuse Patient Records regulations: The Federal rules restrict any use of the information to criminally investigate or prosecute any alcohol or drug abuse patient.[facility]edoIn the event this information is protected by the Federal Confidentiality of Alcohol and Drug Abuse Patient Records regulations: The Federal rules restrict any use of the information to criminally investigate or prosecute any alcohol or drug abuse patient.[facility]edoIn the event this information is protected by the Federal Confidentiality of Alcohol and Drug Abuse Patient Records regulations: The Federal rules restrict any use of the information to criminally investigate or prosecute any alcohol or drug abuse patient.[facility]edoIn the event this information is protected by the Federal Confidentiality of Alcohol and Drug Abuse Patient Records regulations: The Federal rules restrict any use of the information to criminally investigate or prosecute any alcohol or drug abuse patient.[facility]edoIn the event this information is protected by the Federal Confidentiality of Alcohol and Drug Abuse Patient Records regulations: The Federal rules restrict any use of the information to criminally investigate or prosecute any alcohol or drug abuse patient.[facility]edoIn the event this information is protected by the Federal Confidentiality of Alcohol and Drug Abuse Patient Records regulations: The Federal rules restrict any use of the information to criminally investigate or prosecute any alcohol or drug abuse patient.[facility]edoIn the event this information is protected by the Federal Confidentiality of Alcohol and Drug Abuse Patient Records regulations: The Federal rules restrict any use of the information to criminally investigate or prosecute any alcohol or drug abuse patient.[facility]edoIn the event this information is protected by the Federal Confidentiality of Alcohol and Drug Abuse Patient Records regulations: The Federal rules restrict any use of the information to criminally investigate or prosecute any alcohol or drug abuse patient.[facility]edoIn the event this information is protected by the Federal Confidentiality of Alcohol and Drug Abuse Patient Records regulations: The Federal rules restrict any use of the information to criminally investigate or prosecute any alcohol or drug abuse patient.[facility]edoIn the event this information is protected by the Federal Confidentiality of Alcohol and Drug Abuse Patient Records regulations: The Federal rules restrict any use of the information to criminally investigate or prosecute any alcohol or drug abuse patient.[facility]edoIn the event this information is protected by the Federal Confidentiality of Alcohol and Drug Abuse Patient Records regulations: The Federal rules restrict any use of the information to criminally investigate or prosecute any alcohol or drug abuse patient.[facility]edoIn the event this information is protected by the Federal Confidentiality of Alcohol and Drug Abuse Patient Records regulations: The Federal rules restrict any use of the information to criminally investigate or prosecute any alcohol or drug abuse patient.[facility]edoIn the event this information is protected by the Federal Confidentiality of Alcohol and Drug Abuse Patient Records regulations: The Federal rules restrict any use of the information to criminally investigate or prosecute any alcohol or drug abuse patient.[facility]edoIn the event this information is protected by the Federal Confidentiality of Alcohol and Drug Abuse Patient Records regulations: The Federal rules restrict any use of the information to criminally investigate or prosecute any alcohol or drug abuse patient.[facility]edoIn the event this information is protected by the Federal Confidentiality of Alcohol and Drug Abuse Patient Records regulations: The Federal rules restrict any use of the information to criminally investigate or prosecute any alcohol or drug abuse patient.[facility]edoIn the event this information is protected by the Federal Confidentiality of Alcohol and Drug Abuse Patient Records regulations: The Federal rules restrict any use of the information to criminally investigate or prosecute any alcohol or drug abuse patient.[facility]edoIn the event this information is protected by the Federal Confidentiality of Alcohol and Drug Abuse Patient Records regulations: The Federal rules restrict any use of the information to criminally investigate or prosecute any alcohol or drug abuse patient.[facility]edoIn the event this information is protected by the Federal Confidentiality of Alcohol and Drug Abuse Patient Records regulations: The Federal rules restrict any use of the information to criminally investigate or prosecute any alcohol or drug abuse patient.[facility]edoIn the event this information is protected by the Federal Confidentiality of Alcohol and Drug Abuse Patient Records regulations: The Federal rules restrict any use of the information to criminally investigate or prosecute any alcohol or drug abuse patient.[facility]edoIn the event this information is protected by the Federal Confidentiality of Alcohol and Drug Abuse Patient Records regulations: The Federal rules restrict any use of the information to criminally investigate or prosecute any alcohol or drug abuse patient.[facility]edoIn the event this information is protected by the Federal Confidentiality of Alcohol and Drug Abuse Patient Records regulations: The Federal rules restrict any use of the information to criminally investigate or prosecute any alcohol or drug abuse patient.[facility]edoIn the event this information is protected by the Federal Confidentiality of Alcohol and Drug Abuse Patient Records regulations: The Federal rules restrict any use of the information to criminally investigate or prosecute any alcohol or drug abuse patient.[facility]edoIn the event this information is protected by the Federal Confidentiality of Alcohol and Drug Abuse Patient Records regulations: The Federal rules restrict any use of the information to criminally investigate or prosecute any alcohol or drug abuse patient.[facility]edoIn the event this information is protected by the Federal Confidentiality of Alcohol and Drug Abuse Patient Records regulations: The Federal rules restrict any use of the information to criminally investigate or prosecute any alcohol or drug abuse patient.[facility]edoIn the event this information is protected by the Federal Confidentiality of Alcohol and Drug Abuse Patient Records regulations: The Federal rules restrict any use of the information to criminally investigate or prosecute any alcohol or drug abuse patient.[facility]edoIn the event this information is protected by the Federal Confidentiality of Alcohol and Drug Abuse Patient Records regulations: The Federal rules restrict any use of the information to criminally investigate or prosecute any alcohol or drug abuse patient.[facility]edoIn the event this information is protected by the Federal Confidentiality of Alcohol and Drug Abuse Patient Records regulations: The Federal rules restrict any use of the information to criminally investigate or prosecute any alcohol or drug abuse patient.[facility]edoIn the event this information is protected by the Federal Confidentiality of Alcohol and Drug Abuse Patient Records regulations: The Federal rules restrict any use of the information to criminally investigate or prosecute any alcohol or drug abuse patient.[facility]edoIn the event this information is protected by the Federal Confidentiality of Alcohol and Drug Abuse Patient Records regulations: The Federal rules restrict any use of the information to criminally investigate or prosecute any alcohol or drug abuse patient.[facility]edoIn the event this information is protected by the Federal Confidentiality of Alcohol and Drug Abuse Patient Records regulations: The Federal rules restrict any use of the information to criminally investigate or prosecute any alcohol or drug abuse patient.[facility]edoIn the event this information is protected by the Federal Confidentiality of Alcohol and Drug Abuse Patient Records regulations: The Federal rules restrict any use of the information to criminally investigate or prosecute any alcohol or drug abuse patient.[facility]edoIn the event this information is protected by the Federal Confidentiality of Alcohol and Drug Abuse Patient Records regulations: The Federal rules restrict any use of the information to criminally investigate or prosecute any alcohol or drug abuse patient.[facility]edoIn the event this information is protected by the Federal Confidentiality of Alcohol and Drug Abuse Patient Records regulations: The Federal rules restrict any use of the information to criminally investigate or prosecute any alcohol or drug abuse patient.[facility]edoIn the event this information is protected by the Federal Confidentiality of Alcohol and Drug Abuse Patient Records regulations: The Federal rules restrict any use of the information to criminally investigate or prosecute any alcohol or drug abuse patient.[facility]edoIn the event this information is protected by the Federal Confidentiality of Alcohol and Drug Abuse Patient Records regulations: The Federal rules restrict any use of the information to criminally investigate or prosecute any alcohol or drug abuse patient.[facility]edoIn the event this information is protected by the Federal Confidentiality of Alcohol and Drug Abuse Patient Records regulations: The Federal rules restrict any use of the information to criminally investigate or prosecute any alcohol or drug abuse patient.[facility]edoIn the event this information is protected by the Federal Confidentiality of Alcohol and Drug Abuse Patient Records regulations: The Federal rules restrict any use of the information to criminally investigate or prosecute any alcohol or drug abuse patient.[facility]edoIn the event this information is protected by the Federal Confidentiality of Alcohol and Drug Abuse Patient Records regulations: The Federal rules restrict any use of the information to criminally investigate or prosecute any alcohol or drug abuse patient.[facility]edoIn the event this information is protected by the Federal Confidentiality of Alcohol and Drug Abuse Patient Records regulations: The Federal rules restrict any use of the information to criminally investigate or prosecute any alcohol or drug abuse patient.[facility]edoIn the event this information is protected by the Federal Confidentiality of Alcohol and Drug Abuse Patient Records regulations: The Federal rules restrict any use of the information to criminally investigate or prosecute any alcohol or drug abuse patient.[facility]edoIn the event this information is protected by the Federal Confidentiality of Alcohol and Drug Abuse Patient Records regulations: The Federal rules restrict any use of the information to criminally investigate or prosecute any alcohol or drug abuse patient.[facility]edoIn the event this information is protected by the Federal Confidentiality of Alcohol and Drug Abuse Patient Records regulations: The Federal rules restrict any use of the information to criminally investigate or prosecute any alcohol or drug abuse patient.[facility]edoIn the event this information is protected by the Federal Confidentiality of Alcohol and Drug Abuse Patient Records regulations: The Federal rules restrict any use of the information to criminally investigate or prosecute any alcohol or drug abuse patient.[facility]edoIn the event this information is protected by the Federal Confidentiality of Alcohol and Drug Abuse Patient Records regulations: The Federal rules restrict any use of the information to criminally investigate or prosecute any alcohol or drug abuse patient.[facility]edoIn the event this information is protected by the Federal Confidentiality of Alcohol and Drug Abuse Patient Records regulations: The Federal rules restrict any use of the information to criminally investigate or prosecute any alcohol or drug abuse patient.[facility]edoIn the event this information is protected by the Federal Confidentiality of Alcohol and Drug Abuse Patient Records regulations: The Federal rules restrict any use of the information to criminally investigate or prosecute any alcohol or drug abuse patient.[facility]edoIn the event this information is protected by the Federal Confidentiality of Alcohol and Drug Abuse Patient Records regulations: The Federal rules restrict any use of the information to criminally investigate or prosecute any alcohol or drug abuse patient.[facility]edoIn the event this information is protected by the Federal Confidentiality of Alcohol and Drug Abuse Patient Records regulations: The Federal rules restrict any use of the information to criminally investigate or prosecute any alcohol or drug abuse patient.[facility]edoIn the event this information is protected by the Federal Confidentiality of Alcohol and Drug Abuse Patient Records regulations: The Federal rules restrict any use of the information to criminally investigate or prosecute any alcohol or drug abuse patient.[facility]edoIn the event this information is protected by the Federal Confidentiality of Alcohol and Drug Abuse Patient Records regulations: The Federal rules restrict any use of the information to criminally investigate or prosecute any alcohol or drug abuse patient.[facility]edoIn the event this information is protected by the Federal Confidentiality of Alcohol and Drug Abuse Patient Records regulations: The Federal rules restrict any use of the information to criminally investigate or prosecute any alcohol or drug abuse patient.[facility]edoIn the event this information is protected by the Federal Confidentiality of Alcohol and Drug Abuse Patient Records regulations: The Federal rules restrict any use of the information to criminally investigate or prosecute any alcohol or drug abuse patient.[facility]edoIn the event this information is protected by the Federal Confidentiality of Alcohol and Drug Abuse Patient Records regulations: The Federal rules restrict any use of the information to criminally investigate or prosecute any alcohol or drug abuse patient.[facility]edoIn the event this information is protected by the Federal Confidentiality of Alcohol and Drug Abuse Patient Records regulations: The Federal rules restrict any use of the information to criminally investigate or prosecute any alcohol or drug abuse patient.[facility]edoIn the event this information is protected by the Federal Confidentiality of Alcohol and Drug Abuse Patient Records regulations: The Federal rules restrict any use of the information to criminally investigate or prosecute any alcohol or drug abuse patient.[facility]edoIn the event this information is protected by the Federal Confidentiality of Alcohol and Drug Abuse Patient Records regulations: The Federal rules restrict any use of the information to criminally investigate or prosecute any alcohol or drug abuse patient.[facility]edoIn the event this information is protected by the Federal Confidentiality of Alcohol and Drug Abuse Patient Records regulations: The Federal rules restrict any use of the information to criminally investigate or prosecute any alcohol or drug abuse patient.[facility]edoIn the event this information is protected by the Federal Confidentiality of Alcohol and Drug Abuse Patient Records regulations: The Federal rules restrict any use of the information to criminally investigate or prosecute any alcohol or drug abuse patient.[facility]edoIn the event this information is protected by the Federal Confidentiality of Alcohol and Drug Abuse Patient Records regulations: The Federal rules restrict any use of the information to criminally investigate or prosecute any alcohol or drug abuse patient.[facility]edoIn the event this information is protected by the Federal Confidentiality of Alcohol and Drug Abuse Patient Records regulations: The Federal rules restrict any use of the information to criminally investigate or prosecute any alcohol or drug abuse patient.[facility] Reason for Visit (unrecogniz ed section and content) Reason Onset Date Comments Refill Request 12/07/2021 Reason Comments Diarrhea Pt denied blood, muc us Headache Pain rated 7, x3 day s Reason Comments Results Reason Comments Chest Congestion sore throat, chills, VALLES x 2 days Reason Onset Date Comments Refill Request 04/08/2022 Reason Comments Appointment Confirmation Reason Comments Dysphagia Reason Comments Forms Reason Comments Viral Syndrome Reason Onset Date Comments Refill Request 11/03/2022 Reason Onset Date Comments Refill Request 11/25/2022 Reason Comments ED Follow-up Reason Comments Sprain of left ankle Reason Comments fax copy return to work letter Reason Comments Sinus Problem sinus pressure, drai nage x 2 weeks Reason Comments Sinus Problem Nasal congestion, wa s seen in [facility] and given ATB. Not getting any better and has been having to use inhaler quite often. PCP normally prescribes patient prednisone. Reason Comments Orders Reason Onset Date Comments Refill Request 03/30/2023 Reason Comments Appointment Reason Comments fmla forms Reason Comments Yearly Exam Reason Onset Date Comments Refill Request 05/20/2023 Reason Comments Low Testosterone Referred from Dr. Jazmin Horton Specialty Diagnoses / Procedures Referred By Kourtney velasquez Referred To Contact Endocrinology Diagnoses Low testosterone Procedures CONSULT TO ENDOCRINOLOGY OFFICE/OUTPATIENT NEW HIGH MDM 60-74 MINUTES Simba Horton, DO [address] [place] [address] Referral ID Status Reason Start Date Expiration Date V isits Requested Visits Authorized [id number] Closed PCP Requested Referral 05/18/2023 05/17/2024 1 1 Reason Comments Established Patient Follow up Reason Comments Asthma flare x couple weeks , needing refill on albuterol Reason Comments Cough Cough, fever and ST x 2 days Reason Comments Medication Problem Reason Comments Patient Update Reason Comments Patient Question Reason Comments No Show Reason Comments Appointment Confirmation Pre-procedure i nstructions for 12/20/23 EGD Reason Comments Pre-Op Visit Reason Onset Date Comments Refill Request 12/15/2023 Reason Comments Eosinophilic esophagitis Reason Comments Lab Order Request Reason Comments Musculoskeletal Problem X2 weeks after s urgery(Middle of November), numbness to right hand 1st & 3rd digit Reason Onset Date Comments Refill Request 04/23/2024 Reason Comments Medication Problem Dupixent prior autho rization Reason Comments Pharmacy Call Reason Comments Medication Request Reason Comments anxirty Pt states always has some anxiety but can manage very well since surgery coming up has not een able to . Its not the surgery he is anxious about its the recovery. Reason Comments Sinus Problem sinus pressure, drai nage and cough x 3 days Reason Comments Follow Up Reason Onset Date Comments Refill Request 08/13/2024 Reason Comments Medication Problem Duxpixent Reason Onset Date Comments Refill Request 09/13/2024 Reason Comments Refill Request Reason Comments FYI regarding Hosp f/u appt Reason Onset Date Comments Refill Request 09/30/2024 Reason Onset Date Comments Refill Request 10/31/2024 Reason Comments blood in stools Reason Comments BLOOD STOOL LAST NIGHT AN TODAY BRIGHT R ED Reason Onset Date Comments Refill Request 11/11/2024 Reason Comments Chills Ongoing for a few we eks, no fevers, no other symptoms Reason Comments question regarding lab results Reason Comments 6 Month Exam Reason Comments No BM for 2 weeks Reason Onset Date Comments Refill Request 03/14/2025 Reason Comments Acute Visit Nasal congestion, fa cial pressure, headache, body aches x 04/22 evening Care Teams (unrecognized sec tion and content) Heel Boom Operator Relationship Specialty Start Date End Date Simba Horton, DO [address] [place] [address] PCP - General Family Practice 08/17/19 Heel Boom Operator Relationship Specialty Start Date End Date Simba Horton, DO [address] [facility] [address] PCP - General Family Practice 08/17/19 Heel Boom Operator Relationship Specialty Start Date End Date Simba Horton, DO [address] [facility] [place] [address] PCP - General Family Practice 08/17/19 Heel Boom Operator Relationship Specialty Start Date End Date Simba Horton, DO [address] [place] [address] PCP - General Family Practice 08/17/19 Heel Boom Operator Relationship Specialty Start Date End Date Simba Horton, DO [address] [facility] [place] [address] PCP - General Family Practice 08/17/19 Heel Boom Operator Relationship Specialty Start Date End Date Simba Horton, DO [address] [place] [address] PCP - General Family Medicine 08/17/19 Heel Boom Operator Relationship Specialty Start Date End Date Simba Horton, DO [address] [place] [address] PCP - General Family Medicine 08/17/19 Heel Boom Operator Relationship Specialty Start Date End Date Simba Horton, DO [address] [facility] [place] [address] PCP - General Family Medicine 08/17/19 Heel Boom Operator Relationship Specialty Start Date End Date Simba Horton, DO [address] [facility] [place] [address] PCP - General Family Medicine 08/17/19 Heel Boom Operator Relationship Specialty Start Date End Date Simba Horton, DO [address] [facility] [place] [address] PCP - General Family Medicine 08/17/19 Team Status: Active Member Role Status Dates No Primary Care Physician Family Provider Active Dr. Simba Horton DO Primary Care Provider Active Team Status: Inactive Member Role Status Dates Dr. Simba Horton DO Primary Care Provider Active Dr. Fabrice Mcgill MD Emergency Provider Active Heel Boom Operator Relationship Specialty Start Date End Date Simba Horton, DO [address] [facility] [place] [address] PCP - General Family Medicine 08/17/19 Heel Boom Operator Relationship Specialty Start Date End Date Simba Horton, DO [address] [place] [address] PCP - General Family Medicine 08/17/19 Team Status: Inactive Member Role Status Dates Dr. Simba Horton DO Primary Care Provider Active Dr. Fabrice Mcgill MD Attending Provider, Emergency Provider Active Team Status: Inactive Member Role Status Dates Dr. Simba Horton DO Primary Care Provider Active Dr. Froilan Sheppard DO Emergency Provider Active Heel Boom Operator Relationship Specialty Start Date End Date Simba Horton DO [address] [facility] [place] [address] PCP - General Family Medicine 08/17/19 Heel Boom Operator Relationship Specialty Start Date End Date Simba Horton DO [address] [facility] [address] PCP - General Family Medicine 08/17/19 Heel Boom Operator Relationship Specialty Start Date End Date Simba Horton DO [address] [facility] [address] PCP - General Family Medicine 08/17/19 Heel Boom Operator Relationship Specialty Start Date End Date Simba Horton DO [address] [facility] [address] PCP - General Family Medicine 08/17/19 Heel Boom Operator Relationship Specialty Start Date End Date Simba Horton DO [address] [facility] [place] [address] PCP - General Family Medicine 08/17/19 Heel Boom Operator Relationship Specialty Start Date End Date Simba Horton DO [address] [facility] [place] [address] PCP - General Family Medicine 08/17/19 Heel Boom Operator Relationship Specialty Start Date End Date Simba Horton DO [address] [place] [address] PCP - General Family Medicine 08/17/19 Heel Boom Operator Relationship Specialty Start Date End Date Simba Horton DO [address] [facility] [place] [address] PCP - General Family Medicine 08/17/19 Heel Boom Operator Relationship Specialty Start Date End Date Sibma Horton, [address] [place] [address] PCP - General Family Medicine 08/17/19 Heel Boom Operator Relationship Specialty Start Date End Date Simba Horton, [address] [place] [address] PCP - General Family Medicine 08/17/19 Heel Boom Operator Relationship Specialty Start Date End Date Simba Horton, [address] [place] [address] PCP - General Family Medicine 08/17/19 Heel Boom Operator Relationship Specialty Start Date End Date Simba Hroton, [address] [place] [address] PCP - General Family Medicine 08/17/19 Heel Boom Operator Relationship Specialty Start Date End Date Simba Horton DO [address] [place] [address] PCP - General Family Medicine 08/17/19 Heel Boom Operator Relationship Specialty Start Date End Date Simba Horton, [address] [place] [address] PCP - General Family Medicine 08/17/19 Heel Boom Operator Relationship Specialty Start Date End Date Simba Horton DO [address] [place] [address] PCP - General Family Medicine 08/17/19 Heel Boom Operator Relationship Specialty Start Date End Date Simba Horton, [address] [place] [address] PCP - General Family Medicine 08/17/19 Heel Boom Operator Relationship Specialty Start Date End Date Simba Horton DO [address] [place] [address] PCP - General Family Medicine 08/17/19 Heel Boom Operator Relationship Specialty Start Date End Date Simba Horton DO [address] [place] [address] PCP - General Family Medicine 08/17/19 Heel Boom Operator Relationship Specialty Start Date End Date Simba Horton DO [address] [place] [address] PCP - General Family Medicine 08/17/19 Heel Boom Operator Relationship Specialty Start Date End Date Simba Horton DO [address] [place] [address] PCP - General Family Medicine 08/17/19 Heel Boom Operator Relationship Specialty Start Date End Date Simba Horton DO [address] [place] [address] PCP - General Family Medicine 08/17/19 Heel Boom Operator Relationship Specialty Start Date End Date Simba Horton DO [address] [place] [address] PCP - General Family Medicine 08/17/19 Heel Boom Operator Relationship Specialty Start Date End Date Simba Horton DO [address] [place] [address] PCP - General Family Medicine 08/17/19 Team Status: Inactive Member Role Status Dates Dr. Simba Horton , DO Primary Care Provider Active Dr. Demetrius Jensen , DO Attending Provider, Emergency Pro vider Active Team Status: Inactive Member Role Status Dates Dr. Simba Horton DO Primary Care Provider Active Dr. Tyrone Aguirre MD Attending Provider, Referring Provider Active Heel Boom Operator Relationship Specialty Start Date End Date Simba Horton DO [address] [place] [address] PCP - General Family Medicine 08/17/19 Heel Boom Operator Relationship Specialty Start Date End Date Simba Horton DO [address] [place] [address] PCP - General Family Medicine 08/17/19 Heel Boom Operator Relationship Specialty Start Date End Date Simba Horton DO [address] [place] [address] PCP - General Family Medicine 08/17/19 Heel Boom Operator Relationship Specialty Start Date End Date Simba Horton DO [address] [place] [address] PCP - General Family Medicine 08/17/19 Heel Boom Operator Relationship Specialty Start Date End Date Simba Horton DO [address] [place] [address] PCP - General Family Medicine 08/17/19 Heel Boom Operator Relationship Specialty Start Date End Date Simba Horton DO [address] [place] [address] PCP - General Family Medicine 08/17/19 Heel Boom Operator Relationship Specialty Start Date End Date Simba Horton DO [address] [place] [address] PCP - General Family Medicine 08/17/19 Heel Boom Operator Relationship Specialty Start Date End Date Simba Horton DO [address] [place] [address] PCP - General Family Medicine 08/17/19 Heel Boom Operator Relationship Specialty Start Date End Date Simba Horton, [address] [facility] [place] [address] PCP - General Family Medicine 08/17/19 Heel Boom Operator Relationship Specialty Start Date End Date Simba Horton, [address] [place] [address] PCP - General Family Medicine 08/17/19 Heel Boom Operator Relationship Specialty Start Date End Date Simba Horton, [address] [place] [address] PCP - General Family Medicine 08/17/19 Heel Boom Operator Relationship Specialty Start Date End Date Simba Horton, [address] [place] [address] PCP - General Family Medicine 08/17/19 Heel Boom Operator Relationship Specialty Start Date End Date Simba Horton, [address] [place] [address] PCP - General Family Medicine 08/17/19 Heel Boom Operator Relationship Specialty Start Date End Date Simba Horton, [address] [place] [address] PCP - General Family Medicine 08/17/19 Heel Boom Operator Relationship Specialty Start Date End Date Simba Horton, [address] [place] [address] PCP - General Family Medicine 08/17/19 Heel Boom Operator Relationship Specialty Start Date End Date Simba Horton DO [address] [place] [address] PCP - General Family Medicine 08/17/19 Heel Boom Operator Relationship Specialty Start Date End Date Simba Horton DO [address] [place] [address] PCP - General Family Medicine 08/17/19 Heel Boom Operator Relationship Specialty Start Date End Date Simba Horton DO [address] [place] [address] PCP - General Family Medicine 08/17/19 Heel Boom Operator Relationship Specialty Start Date End Date Simba Horton DO [address] [place] [address] PCP - General Family Medicine 08/17/19 Heel Boom Operator Relationship Specialty Start Date End Date Simba Horton DO [address] [place] [address] PCP - General Family Medicine 08/17/19 Heel Boom Operator Relationship Specialty Start Date End Date Simba Horton DO [address] [place] [address] PCP - General Family Medicine 08/17/19 Heel Boom Operator Relationship Specialty Start Date End Date Simba Horton DO [address] [place] [address] PCP - General Family Medicine 08/17/19 Shelly Broderick APRN.EMERY GRINDER [address] [place] [address] Health Education Assistant Family Medicine 08/05/24 Kenisha Puentesekah, ANTHROPOLOGY INSTRUCTOR.EMERY GRINDER [address] [place] [address] [facility] 08/[facility]/24 Heel Boom Operator Relationship Specialty Start Date End Date Simba Horton DO [address] [place] [address] PCP - General Family Medicine 08/17/19 Shelly Broderick, ANTHROPOLOGY INSTRUCTOR.EMERY GRINDER [address] [place] [address] [facility] 08/05/24 [facility] ANTHROPOLOGY INSTRUCTOR.EMERY GRINDER [address] [place] [address] [facility] 08/05/24 Heel Boom Operator Relationship Specialty Start Date End Date Simba Horton DO [address] [place] [address] PCP - General Family Medicine 08/17/19 Shelly Broderick, ANTHROPOLOGY INSTRUCTOR.EMERY GRINDER [address] [place] [address] [facility] 08/05/24 [facility], ANTHROPOLOGY INSTRUCTOR.EMERY GRINDER [address] [place] [address] [facility] 08/05/24 Heel Boom Operator Relationship Specialty Start Date End Date Simba Horton DO [address] [place] [address] PCP - General Family Medicine 08/17/19 Shelly Broderick, ANTHROPOLOGY INSTRUCTOR.EMERY GRINDER [address] [place] [address] Health Education Assistant Family [facility] 08/05/24 Tuan Puentes APRN.EMERY GRINDER [address] [place] [address] Health Education Assistant [facility] 08/05/24 Heel Boom Operator Relationship Specialty Start Date End Date Simba Horton DO [address] [place] [address] PCP - General Family Medicine 08/17/19 Shelly Broderick ANTHROPOLOGY INSTRUCTOR.EMERY GRINDER [address] [place] [address] Health Education Assistant [facility] 08/05/24 Tuan Puentes, ANTHROPOLOGY INSTRUCTOR.EMERY GRINDER [address] [place] [address] [facility] 08/05/24 Heel Boom Operator Relationship Specialty Start Date End Date Simba Horton DO [address] [place] [address] PCP - General Family Medicine 08/17/19 Shelly Broderick, ANTHROPOLOGY INSTRUCTOR.EMERY GRINDER [address] [place] [address] [facility] 08/05/24 Tuan Puentes, ANTHROPOLOGY INSTRUCTOR.EMERY GRINDER [address] [place] [address] [facility] 08/05/24 Heel Boom Operator Relationship Specialty Start Date End Date Simba Horton DO [address] [place] [address] PCP - General Family Medicine 08/17/19 Shelly Broderick, ANTHROPOLOGY INSTRUCTOR.EMERY GRINDER [address] [place] [address] Health Education Assistant Family Medicine 08/05/24 Tuan Puentes, ANTHROPOLOGY INSTRUCTOR.EMERY GRINDER [address] [place] [address] [facility] 08/05/24 Heel Boom Operator Relationship Specialty Start Date End Date Simba Horton DO [address] [place] [address] PCP - General Family Medicine 08/17/19 Shelly Broderick, ANTHROPOLOGY INSTRUCTOR.EMERY GRINDER [address] [place] [address] [facility] 08/05/24 Tuan Puentes, ANTHROPOLOGY INSTRUCTOR.EMERY GRINDER [address] [place] [address] [facility] 08/05/24 Heel Boom Operator Relationship Specialty Start Date End Date Simba Horton DO [address] [place] [address] PCP - General Family Medicine 08/17/19 Tuan Puentes, ANTHROPOLOGY INSTRUCTOR.EMERY GRINDER [address] [place] [address] [facility] 08/05/24 Team Status: Active Member Role Status Dates Dr. Simba Horton DO Primary Care Provider Active Team Status: Inactive Member Role Status Dates Dr. Simba Horton DO Primary Care Provider Active Start: August 28, 2024 End: August 28, 2024 Dr. Simba Horton DO Referring Provider Active Start: August 28, 2024 End: August 28, 2024 Davon LARSON, PA Attending Provider Active Start: August 28, 2024 End: August 28, 2024 Team Status: Inactive Member Role Status Dates Dr. Simba Horton DO Primary Care Provider Active Start: September 15, 2024 End: September 16, 2024 Dr. Fritz Beasley DO Attending Provider Active Start: September 15, 2024 End: September 16, 2024 Dr. Fritz Beasley DO Emergency Provider Active Start: September 15, 2024 End: September 16, 2024 Team Status: Inactive Member Role Status Dates Dr. Simba Horton DO Primary Care Provider Active Start: November 27, 2024 End: November 27, 2024 Shiv Garcia MD Emergency Provider Active Star t: November 27, 2024 End: November 27, 2024 Heel Boom Operator Relationship Specialty Start Date End Date Simba Horton DO [address] [place] [address] PCP - General Family Medicine 08/17/19 BeTuan, ANTHROPOLOGY INSTRUCTOR.EMERY GRINDER [address] [place] [address] [facility] 08/05/24 Heel Boom Operator Relationship Specialty Start Date End Date Simba Horton DO [address] [place] [address] PCP - General Family Medicine 08/17/19 BeTuan, ANTHROPOLOGY INSTRUCTOR.EMERY GRINDER [address] [place] [address] [facility] 08/05/24 Heel Boom Operator Relationship Specialty Start Date End Date Simba Horton DO [address] [place] [address] PCP - General Family Medicine 08/17/19 Tuan Puentes, ANTHROPOLOGY INSTRUCTOR.EMERY GRINDER [address] [facility] [place] [address] Health Education Assistant Family [facility] 08/05/24 Heel Boom Operator Relationship Specialty Start Date End Date Simba Horton DO [address] [facility] [place] [address] PCP - General Family Medicine 08/17/19 Tuan Puentes, ANTHROPOLOGY INSTRUCTOR.EMERY GRINDER [address] [facility] [place] [address] [facility] 08/05/24 Heel Boom Operator Relationship Specialty Start Date End Date Simba Horton DO [address] [facility] [place] [place] [address] PCP - General Family Medicine 08/17/19 Tuan Puentes, ANTHROPOLOGY INSTRUCTOR.EMERY GRINDER [address] [facility] [address] [facility] 08/05/24 Heel Boom Operator Relationship Specialty Start Date End Date Simba Horton DO [address] [facility] [place] [address] PCP - General Family Medicine 08/17/19 BeTuan, ANTHROPOLOGY INSTRUCTOR.EMERY GRINDER [address] [facility] [place] [address] [facility] 08/05/24 Heel Boom Operator Relationship Specialty Start Date End Date Simba Horton DO [address] [facility] [place] [address] PCP - General Family Medicine 08/17/19 [facility], ANTHROPOLOGY INSTRUCTOR.EMERY GRINDER [address] [place] [address] Health Education Assistant Family [facility] 08/05/24 Heel Boom Operator Relationship Specialty Start Date End Date Simba Horton DO [address] [place] [address] PCP - General Family Medicine 08/17/19 [facility], ANTHROPOLOGY INSTRUCTOR.EMERY GRINDER [address] [place] [address] [facility] 08/05/24 Heel Boom Operator Relationship Specialty Start Date End Date Simba Horton DO [address] [place] [address] PCP - General Family Medicine 08/17/19 [facility], ANTHROPOLOGY INSTRUCTOR.EMERY GRINDER [address] [place] [address] [facility] 08/05/24 Heel Boom Operator Relationship Specialty Start Date End Date Simba Horton DO [address] [place] [address] PCP - General Family Medicine 08/17/19 [facility], ANTHROPOLOGY INSTRUCTOR.EMERY GRINDER [address] [place] [address] [facility] 08/05/24 Heel Boom Operator Relationship Specialty Start Date End Date Simba Horton DO [address] [place] [address] PCP - General Family Medicine 08/17/19 [facility] CenterKarrieah, ANTHROPOLOGY INSTRUCTOR.EMERY GRINDER [address] [place] [address] Health Education Assistant Family [facility] 08/05/24 Ashlee Burnett, ANTHROPOLOGY INSTRUCTOR.EMERY GRINDER [address] [place] [address] [facility] 02/11/25 Heel Boom Operator Relationship Specialty Start Date End Date Simba Horton DO [address] [place] [address] PCP - General Family Medicine 08/17/19 [facility] CenterKar[facility], ANTHROPOLOGY INSTRUCTOR.EMERY GRINDER [address] [place] [address] [facility] 08/05/24 Ashlee Burnett, ANTHROPOLOGY INSTRUCTOR.EMERY GRINDER [address] [place] [address] [facility] 02/11/25 Heel Boom Operator Relationship Specialty Start Date End Date Simba Horton DO [address] [place] [address] PCP - General Family Medicine 08/17/19 [facility] Tuan, ANTHROPOLOGY INSTRUCTOR.EMERY GRINDER [address] [place] [address] [facility] 08/05/24 Ashlee Burnett, ANTHROPOLOGY INSTRUCTOR.EMERY GRINDER [address] [place] [address] [facility] 02/11/25 Heel Boom Operator Relationship Specialty Start Date End Date Simba Horton DO [address] [place] [address] PCP - General Family Medicine 08/17/19 Tuan Puentes, ANTHROPOLOGY INSTRUCTOR.EMERY GRINDER [address] [place] [address] Health Education Assistant Family Medicine 08/05/24 Ashlee Burnett, ANTHROPOLOGY INSTRUCTOR.EMERY GRINDER [address] [place] [address] Health Education Assistant Family Medicine 02/11/25 Heel Boom Operator Relationship Specialty Start Date End Date Simba Horton DO [address] [place] [address] PCP - General Family Medicine 08/17/19 Tuan Puentes, ANTHROPOLOGY INSTRUCTOR.EMERY GRINDER [address] [place] [address] Health Education Assistant Family Medicine 08/05/24 Ashlee Burnett, ANTHROPOLOGY INSTRUCTOR.EMERY GRINDER [address] [place] [address] Health Education Assistant Family [facility] 02/11/25 Heel Boom Operator Relationship Specialty Start Date End Date Simba Horton DO [address] [place] [address] PCP - General Family Medicine 08/17/19 Tuan Puentes, ANTHROPOLOGY INSTRUCTOR.EMERY GRINDER [address] [place] [address] Health Education Assistant Family Medicine 08/05/24 Ashlee Burnett, ANTHROPOLOGY INSTRUCTOR.EMERY GRINDER [address] [place], [place] [address] [facility] 02/11/25 Heel Boom Operator Relationship Specialty Start Date End Date Simba Horton DO [address] [place], [place] [address] PCP - General Family Medicine 08/17/19 Tuan Puentes APRN.EMERY GRINDER [address] [place] [address] [facility] 08/05/24 Ashlee Burnett, MASOUD.EMERY GRINDER [address] [place], [place] [address] [facility] 02/11/25 Goals (unrecognized section and content) Goals may be documented in a n alternate sectionGoals may be documented in an alternate sectionGoals may be documented in an alternate sectionGoals may be documented in an alternate section FOR RECORDS PERTAINING TO PATIENTS WHO ARE OR HAVE BEEN ENROLLED IN A CHEMICAL DEPENDENCY/SUBSTANCEABUSE PROGRAM, SOME INFORMATION MAY BE OMITTED. This clinical summary was aggregated from multiple sources. Caution should be exercised in using it in the provision of clinical care. This summary normalizes information from multiple sources, and as a consequence, information in this document may materially change the coding, format and clinical context of patient data. In addition, data may be omitted in some cases. CLINICAL DECISIONS SHOULD BE BASED ON THE PRIMARY CLINICAL RECORDS. [facility] [email or web address] provides no warranty or guarantee of the accuracy or completeness of information in this document.
== END | disposition home or self-care (01) ==
LOC: CT 07:41
PROVIDERS: PCP Student in an Organized Health Care Education/Training Program; Referring Provider Podiatrist Foot & Ankle Surgery; Visit Provider Podiatrist Foot & Ankle Surgery
DX: M19.072 Primary osteoarthritis, left ankle and foot (principal); M79.672 Pain in left foot
CPT/HCPCS: 73700

== ENCOUNTER 2025-08-02 07:57 | Day surgery (SDC) | payer OTHER, SELFPAY ==
[2025-07-29 17:44] LABS: Magnesium 2.2 mg/dL (1.5-2.2)
[2025-08-02] VITALS (12 sets, daily range): BP systolic 113–134; BP diastolic 77–88; PULSE 63–87; RESP 16; TEMP 36.2–36.7; O2SAT 95–100; BMI 30.9
--- NOTE | 2025-08-02 08:11 | PCM.OPRPT ---
Operative Report (Standard) Operative Information Date of Procedure: 09/04/25 Pre-Operative Diagnosis: 1. Pain, left foot 2. Primary osteoarthritis, left foot 3. Hallux valgus, left foot 4. 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: [employer] PGY2 Tasks completed by fast food assistant restaurant manager: Closing Additional players assistant?: Yes Additional [employer] #2: Earl Prieto Tasks completed by players assistant #2: Closing Additional players assistant?: No Type of Anesthesia: General/Regional RN Documented Start/Stop Times: Operation Date: 08/02/25 10:00 Case Time Into Pre-Op 08/02/25 08:00 Anesthesia Start 08/02/25 09:11 Into Room 08/02/25 09:11 Out of Pre-Op 08/02/25 09:11 Procedure Start 08/02/25 09:29 Procedure End 08/02/25 10:31 Anesthesia End 08/02/25 10:40 Out of Room 08/02/25 10:40 Into Recovery 08/02/25 10:42 Procedure Start Time: 09:29 Procedure Stop Time: 10:31 Select all DRAINS/GRAFTS/IMPLANTS that apply: None Special Medications: Per anesthesia Estimated Blood Loss: 15 mL Fluids Replaced: Per anesthesia Specimen collected: No Description of surgery: Indications For Operation: Mr. Hernandez is a 40-year-old male who was admitted to [facility] [place] for left foot surgery consisting of cheilectomy, Hawkins osteotomy and percutaneous capsulotomy of the second digit. Patient is well-known to my clinic and has been treated for osteoarthritis to the big toe joint with history of previous bunion corrective surgery by an outside provider. Over the course the last few years the patient has exhausted all conservative treatment with shoe gear modification, taping, icing, nonsteroidal anti-inflammatories and oral steroids. Patient states that he still having pain to the big toe joint especially with bowling. 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 Together we decided to move forward with the above procedure to give him better range of motion and decrease pain level especially with walking and standing and bowling for long periods of time. Patient did have formal/surgical consultation with chart review and consent signed. All risk benefits discussed patient great detail. Due to decrease in range of motion to the big toe joint it was deemed necessary at this time to take the patient operating room to perform the above procedure to help improve range of motion and decrease his constant pain. The nature of the problem, anticipated procedures, postop recovery/convalences and risk/complications include but not limited to infection, wound healing complications, digital amputation, hypertrophic scarring, numbness, tingling, chronic pain, CRPS, over and under correction, recurrence of deformity, DVT and or PE and the need for further surgery have been discussed in great detail with the patient. All questions have been answered to the patient's satisfaction. There are no guarantees given as to the outcome of the procedure. Description of Procedure: Under mild sedation, the patient was brought into the operating room and placed on the operating table in supine position. Once the patient was under general anesthesia with laryngeal mask airway, the left lower extremity was blocked in PACU prior to the procedure with anesthesia doing a popliteal and adductor block. Please see anesthesia notes for further detail. Next, a well-padded thigh tourniquet was applied to the left lower extremity. Next, the left lower extremity was prepped and draped in normal aseptic manner. Next, a timeout was then undertaken verifying the correct patient, extremity, visibility of preoperative markings, availability of the equipment. Next, attention was directed to the left lower extremity. Using a 4 inch Esmarch, left lower extremity was exsanguinated and elevated to 60 degrees for 1 minute. Procedure #1: Cheilectomy, first metatarsal, left foot (CPT code: 81953) Next, with attention to the dorsal aspect of first metatarsophalangeal joint. Using a sterile skin marker a skin incision was marked out medial to the extensor hallucis longus tendon. Using a #15 blade a full-thickness incision down to subcutaneous tissue was performed without incident. Continued blunt dissection was carried down to the level of the capsule. Care was taken to retract the extensor hallucis longus tendon laterally. Continue sharp dissection was carried down and around the first metatarsal phalangeal joint. At this time there was evidence of approximately 35 to 45% of articular destruction to the head of the first metatarsal and base of the proximal phalanx. All arthritic changes to the dorsal aspect of the first metatarsal and proximal phalanx were removed with rongeur. Using a sagittal saw and #111 blade, the cheilectomy was performed without incident. The left big toe joint was put through range of motion and there was approximately 40 degrees of range of motion noted on the operating table. Procedure #2: Hawkins osteotomy, proximal phalanx, left hallux (CPT code: 66928) Next, attention was directed to the base of the proximal phalanx and using the sagittal saw and #111 blade, the Hawkins osteotomy was performed removing approximately 50% of the base of the proximal phalanx and angular fashion. The big toe joint was put through range of motion and there showed to be improved range of motion greater than 55 degrees while on the operating room table. The incision was flushed with copious normal saline. Next, a capsulorrhaphy was performed and at this time there was an accidental strike/laceration against the extensor hallucis longus tendon that caused it to retract slightly. An end-to-end and anastomosis of the extensors longus tendon was performed and held in place with 3-0 Ethibond in simple and horizontal mattress suture technique. After the tendon was reconstructed the hallux was sitting in a more rectus dorsiflexion fashion. Next, the incision was flushed with copious normal saline. The deep layer was reapproximated and closed as well as the capsulorrhaphy sign on the medial capsule was reapproximated with 2-0 Vicryl and over and over suture technique, and the deep layer was reapproximated closed with 2-0 Vicryl in running locking suture technique. At this time the left thigh tourniquet was deflated and all reperfusion was noted incident to the left lower extremity. All bleeders were cauterized and ligated as necessary. The subcutaneous layer was pretty approximated and closed using 3-0 Vicryl in running suture technique. The skin was reapproximated closed in horizontal mattress suture technique using 3-0 nylon. Procedure #3: Percutaneous capsulotomy, second digit, left foot (CPT code: 05456?T1) Next, attention was directed to the second metatarsal phalangeal joint, using a large C-arm fluoroscopy the second metatarsophalangeal joint capsule was identified and released using a #[place] blade and handle without incident. The toe sat in a more rectus fashion. The incision was flushed with copious normal saline. The skin was reapproximate closed with 3-0 nylon in simple erupted suture technique. The patient tolerated the procedure and anesthesia well and apparent satisfactory condition and was transported to the PACU for further monitoring prior to discharge home. Vital signs stable and vascular status intact to all digits bilateral. Post Operative Plan: Weightbearing: No weightbearing to left lower extremity with assistive the knee scooter and or crutches. Full weightbearing right lower extremity. Antibiotics: 2 g Ancef through the IV DVT Prophylaxis: 81 mg aspirin Bedoya: None Dressing: Betadine soaked Adaptic dry sterile dressing double layer Marie AO splint at 90 degrees to left lower extremity. X-Rays: Post-operative films taken on the operating room. Pain Medication: Oxycodone 5 mg, cyclobenzaprine 10 mg, Tylenol 650 mg Follow-up: Patient will follow-up at already scheduled postoperative appointment. Surgical Findings: 1. Iatrogenic laceration of the extensor hallucis longus tendon. The extensor is longus tendon was reapposed/attached and secured with 3-0 Ethibond with 2 simple erupted sutures and 1 horizontal mattress suture. 2. Evidence of 45% articular degeneration of the first metatarsal head and base of the proximal phalanx which was removed with cheilectomy and Hawkins osteotomy. 3. Improved range of motion greater than 55 degrees seen on the operating room table. Complications Complications: Yes Complication Details: 1. Iatrogenic laceration of the extensor hallucis longus tendon. The extensor is longus tendon was reapposed/attached and secured with 3-0 Ethibond with 2 simple erupted sutures and 1 horizontal mattress suture. Admit VTE Documentation VTE Present on Admission: No VTE Mechan Device Prophylaxis: SCD's VTE Pharm Prophylaxis ordered?: Yes
--- NOTE | 2025-08-02 08:13 | PCM.PRE.AN2 ---
ASA Classification* ASA Classification ASA Classification: 2 Assessment & Plan Anesthesia* Anesthesia Assessment Anesthesia Assessment: Discussed sedation and/or anesthesia options, risks, benefits, and alternatives with patient/parents/legal guardian/POA. Questions invited. The patient/parents/legal guardian/POA seems to understand and agrees to proceed with anesthesia plan. Reviewed the physical assessment, medical history, allergy history and patient home medications list prior to surgery/procedure/anesthetic and documented any changes. Performed airway and anesthesia risk assessments. Anesthesia Type Anesthesia Type: General Anesthesia Focused Assessment* Airway Assessment Mouth opens: >3 cm Mallampati Score: II Labs Anesthesia Preop lab: CBC WBC, (4.4-11.0) 9.8 K/mm3 11/27/24, 16: RBC, (4.6-6.2) 5.12 M/mm3 11/27/24, 16: Hgb, (13.0-16.5) 15.1 g/dL 11/27/24, 16: Hct, (40-54) 43.7 % 11/27/24, 16: Plt Count, (150-450) 228 K/mm3 11/27/24, 16:22 CHEMISTRY Potassium, (3.3-5.1) 3.8 mmol/L 11/27/24, 16:22 Sodium, (133-145) 138 mmol/L 11/27/24, 16:22 Magnesium, (1.5-2.2) 2.2 mg/dL 07/29/25, 17:13 BUN, (4-19) 14 mg/dL 11/27/24, 16:22 Creatinine, (0.70-1.20) 0.93 mg/dL 11/27/24, 16:22 Glucose, (70-99) 94 mg/dL 04/04/25, 08:12 COAG Pre-Assessment Diagnosis/Proposed Procedure Planned Operative Procedure(s): CHEILECTOMY AND CORTES OSTEOTOMY OF THE LEFT FOOT PERCUTANEOUS CAPSULOTOMY OF THE LEFT SECOND DIGIT Anesthesia History 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 When Was Last Pacemaker Check QUESTION #4 FULL TEXT: You/Your Family Experience fever (hyperthermia) with Anesthesia Last Oral Intake Last Oral intake: Last Oral Intake NPO since Meds taken in AM with sips of water? Meds patient instructed to take am of surgery PONV PONV - personal computer network analyst: PONV - personal computer network analyst Female No 07/29/25 15:22 HX of Motion Sickness Yes 07/29/25 15:22 HX of N/V After Surgery No 07/29/25 15:22 Non-Smoker Yes 07/29/25 15:22 Duration of Surgery greater Yes 07/29/25 15:22 than 60 minutes Number of Risk Factors 3 07/29/25 15:22 PONV Score Moderate Risk 07/29/25 15:22 Height & Weight Height & Weight: Anesthesia: Height & Weight Height 6 ft 1 in 08/01/25 09:17 Weight: 104.78 kg 08/01/25 09:17 Respiratory Assessment Respiratory Assessment - personal computer network analyst: Respiratory Tract Infection Hx - personal computer network analyst Hx Respiratory Tract Infection No 07/29/25 15:22 STOP Sleep Apnea STOP Sleep Apnea - personal computer network analyst: STOP Sleep Apnea - personal computer network analyst Hx Hypertension No 07/29/25 15:22 Hx Sleep Apnea No 07/29/25 15:22 CPAP No 10/05/19 12:34 BIPAP No 10/05/19 12:34 Do you snore loudly (louder No 07/29/25 15:22 than talking or can be heard Do you often feel tired/ No 07/29/25 15:22 fatigued/ sleepy during daytime? Has anyone observed you stop No 07/29/25 15:22 breathing during sleep? STOP Results Negative 07/29/25 15:22 QUESTION #5 FULL TEXT : Do you snore loudly (louder than talking or can be heard through closed doors)? 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 Specify any problems Hx of Preganancy in last 3 N/A 07/29/25 15:22 Months Nurse Filling Out Transfusion DSCHRIBER 07/29/25 15:22 & Questions: Date: 07/29/25 07/29/25 15:22 Time: 15:24 07/29/25 15:22 Patient unable to answer at this time (ie. confused, unrespo /Reproduction History /Reproductive History - personal computer network analyst: /Reproductive Hx- personal computer network analyst Hx Now No 07/29/25 15:22 Gestational Age (in weeks): EDC: Hx Hx Para Hx Section SAB No 07/29/25 15:22 Does the father of the baby or his family experience fever w Father of the baby Malignant Hypertension history comment Active Medications Active Medications: Current Medications Generic Name Dose Route Start Last Admin Trade Name Freq PRN Reason Stop Dose Admin Acetaminophen 1,000 mg 08/02/25 10:00 Acetaminophen 500 Mg Tablet PO 08/02/25 10:01 PREOP ONE Gabapentin 600 mg 08/02/25 10:00 Gabapentin 600 Mg Tablet PO 08/02/25 10:01 PREOP ONE Cefazolin Sodium 2 gm/ Sodium 110 mls @ 200 mls/hr 08/02/25 10:00 Chloride IV 08/02/25 10:32 INTRAOP ONE Magnesium Sulfate 1 gm/ 102 mls @ 408 mls/hr 08/02/25 10:00 Dextrose IV 08/02/25 10:14 PREOP ONE Lactated Ringer's 1,000 mls @ 15 mls/hr 08/02/25 08:15 IV .Q48H LASHANDA Insulin Human Lispro 1 - 6 unit 08/02/25 10:00 Insulin Lispro 100 Unit/Ml Insuln.Pen SC Q4H PRN PRN BG>/= 180, SEE PROTOCOL Protocol PFSH Medical History Wears partial dentures Anxiety Arthritis Restless legs Difficulty swallowing History of IBS Gastric reflux Non-smoker Leg cramps History of pain when walking History of edema Gout Asthma Home Medications ?Medication ?Instructions ?Recorded ?Last Taken ?Type albuterol sulfate 90 mcg/actuation 3 inh inhalation Q4H PRN shortness 07/29/25 Unknown History breath activated powder inhaler of breath or wheezing alprazolam 0.25 mg tablet 0.25 mg PO PRN PRN anxiety 07/29/25 Unknown History celecoxib 100 mg capsule (Celebrex) 100 mg PO DAILY pain 07/29/25 Unknown History cetirizine 10 mg capsule (Zyrtec) 10 mg PO DAILY PRN allergy symptoms 07/29/25 Unknown History dupilumab 300 mg/2 mL subcutaneous 300 mg subcut FR 07/29/25 Unknown History pen injector (Dupixent) fluticasone propionate 50 1 spray intranasal DAILY PRN 07/29/25 Unknown History mcg/actuation nasal allergy symptoms spray,suspension (Flonase Allergy Relief) furosemide 20 mg tablet 20 mg PO DAILY PRN edema 07/29/25 Unknown History omeprazole 40 mg capsule,delayed 40 mg PO DAILY PRN GERD 07/29/25 Unknown History release trazodone 100 mg tablet 100 - 200 mg PO QHS 07/29/25 Unknown History Allergy/AdvReac Type Severity Reaction Status Date / Time bee venom protein (honey bee) Allergy Anaphylaxis Verified 07/29/25 15:17 Cyanoacrylates Allergy Rash Verified 07/29/25 15:17 Surgical History Hx of left knee surgery Hx laparoscopic cholecystectomy Hx of foot surgery Hx of hand surgery History of bunionectomy of left great toe Hx of nasal septoplasty H/O medial meniscus repair of right knee History of esophagogastroduodenoscopy (EGD) Social History household members: spouse current occupational status: employed Smoking Status: Never smoker alcohol intake: never Review of Systems (Anesthesia) ROS Narrative System reviewed and no additional complaints, except as documented.
[2025-08-02] MEDS: Magnesium 1 GM over 15 mins IV (08:37)
[2025-08-02] MEDS: Lactated Ringers 1,000 ML 15 ML IV (08:37)
[2025-08-02] MEDS: Midazolam 2 MG/2 ML Syringe IV (09:00)
[2025-08-02] MEDS: Lactated Ringers 1,000 ML 1000 ML IV (09:11)
[2025-08-02] MEDS: fentaNYL 100 MCG/2 ML Ampul 50 MCG IV (09:17)
[2025-08-02] MEDS: Lidocaine 1% (5 ml sdv) 5 ML Vial IV (09:17)
[2025-08-02] MEDS: Cefazolin 1 GM/5 ML Vial 2 GM IV (09:21)
--- NOTE | 2025-08-02 09:42 | RAD_ITS ---
EXAM: XR Left Foot, 2 Views CLINICAL INDICATION: LEFT FOOT CHEILECTOMY WITH CORTES OSTEOTOMY TECHNIQUE: Frontal and lateral views of the left foot. COMPARISON: No relevant prior studies available. FINDINGS: 2 fluoroscopic images were obtained. Total fluoroscopy time 13.3 seconds. Total radiation dose 0.24 mGy. RAD/Foot 2 Views IMPRESSION: Fluoroscopic guidance was used intraoperatively. Please refer to operative not e further details. Reading Location: [id number]
--- NOTE | 2025-08-02 11:40 | PCM.POST.ANE ---
Anesthesia: Postop Eval I Current Vital Signs Temperature: 98.1 F Pulse Rate: 63 Blood Pressure: 114/77 Respiratory Rate: 16 Pulse Ox: 100 Assessment Airway patent: Yes Spontaneous unlabored respirations: Yes Mental status: Awake nausea: No Vomiting: No Anesthesia Complication: No Fluid Hydration Crystalloid volume administer (ml): 1,000 Total IV fluid infused: 1,000 Progress Note Anesthesia document: Postop Eval 1 completed: Yes
[2025-08-02] MEDS: Ketorolac 30 MG/ML Syringe IV (12:35)
--- NOTE | 2025-08-02 12:45 | POSTOPAN2_ITS ---
Anesthesia Postop Eval I Sum Postop Eval Completion status Anesthesia document: Postop Eval 1 completed: Yes Anesthesia Postop Eval I Summary Anesthesia Postop Eval I Summary: Anesthesia Postop Eval I: Assessment Summary Airway patent Yes 08/02/25 11:57 LEATHER BELT [email or web address] [email or web address] Spontaneous unlabored Yes 08/02/25 11:57 LEATHER BELT LOOP [email or web address] respirations Mental status Awake 08/02/25 11:57 LEATHER BELT [email or web address] [email or web address] nausea No 08/02/25 11:57 LEATHER BELT LOOP [email or web address] Vomiting No 08/02/25 11:57 LEATHER BELT LOOP [email or web address] Anesthesia Postop Eval I: Fluid Summary Crystalloid volume administer 1,000 08/02/25 11:57 LEATHER BELT LOOP [email or web address] (ml) Colloids volume administered ( ml) Blood Product volume administered (ml) Total IV fluid infused 1,000 08/02/25 11:57 LEATHER BELT LOOP CUTTER.ACAR Anesthesia Postop Eval I: Summary Notes Anesthesia Complication No 08/02/25 11:57 LEATHER BELT LOOP [email or web address].ACAR Anesthesia Complication Comment: Post-operative progress note Anesthesia: Postop Eval II Evaluation Mental status: Awake Pain Level: 0 nausea: No Vomiting: No
--- NOTE | 2025-08-02 12:45 | PCM.POSTANE2 ---
Anesthesia Postop Eval I Sum Postop Eval Completion status Anesthesia document: Postop Eval 1 completed: Yes Anesthesia Postop Eval I Summary Anesthesia Postop Eval I Summary: Anesthesia Postop Eval I: Assessment Summary Airway patent Yes 08/02/25 11:57 GM [email or web address] Spontaneous unlabored Yes 08/02/25 11:57 GM [email or web address] respirations Mental status Awake 08/02/25 11:57 GM [email or web address] nausea No 08/02/25 11:57 GM [email or web address] Vomiting No 08/02/25 11:57 GM [email or web address] Anesthesia Postop Eval I: Fluid Summary Crystalloid volume administer 1,000 08/02/25 11:57 GM [email or web address] (ml) Colloids volume administered ( ml) Blood Product volume administered (ml) Total IV fluid infused 1,000 08/02/25 11:57 GM [email or web address] Anesthesia Postop Eval I: Summary Notes Anesthesia Complication No 08/02/25 11:57 GM [email or web address] Anesthesia Complication Comment: Post-operative progress note Anesthesia: Postop Eval II Evaluation Mental status: Awake Pain Level: 0 nausea: No Vomiting: No
== END 2025-08-02 12:55 | disposition home or self-care (01) ==
LOC: SDC 07:57 → AC 07:58
PROVIDERS: PCP Student in an Organized Health Care Education/Training Program; Referring Provider Podiatrist Foot & Ankle Surgery; Visit Provider Podiatrist Foot & Ankle Surgery
PROC: (CPT 28270; principal; 2025-08-02 09:45)
DX: M19.072 Primary osteoarthritis, left ankle and foot (principal); M20.12 Hallux valgus (acquired), left foot; M96.821 Accidental puncture and laceration of a musculoskeletal structure during other procedure; G47.33 Obstructive sleep apnea (adult) (pediatric); F41.8 Other specified anxiety disorders; Z01.818 Encounter for other preprocedural examination; Z79.899 Other long term (current) drug therapy; J01.00 Acute maxillary sinusitis, unspecified; H66.93 Otitis media, unspecified, bilateral
CPT/HCPCS: 28270; 28292; 28289; 01470; 36415; 73620; 76000; 82962; 83735; 87081; A4216; J2405; J3475

== ENCOUNTER → 2025-08-26 | Outpatient (CLI) | payer OTHER, SELFPAY | END | disposition home or self-care (01) | LOC: LABSPEC 16:54 | PROVIDERS: PCP Student in an Organized Health Care Education/Training Program; Referring Provider Podiatrist Foot & Ankle Surgery; Visit Provider Podiatrist Foot & Ankle Surgery | DX: S91.302A Unspecified open wound, left foot, initial encounter (principal) | CPT/HCPCS: 87070; 87075; 87077; 87186; 87205 ==

== ENCOUNTER 2025-08-27 20:30 | Emergency (ER) | payer OTHER, SELFPAY ==
[2025-08-27 20:31] VITALS: BP 154/102; PULSE 100; RESP 16; TEMP 36.8; O2SAT 98; BMI 32.2
[2025-08-27 20:32] VITALS: BP 147/95; PULSE 112; RESP 18; TEMP 36.8; O2SAT 97
--- NOTE | 2025-08-27 20:32 | EDS_ITS ---
HPI History of Present Illness Chief Complaint: Lower Extremity Injury [facility] Medical History Wears partial dentures Anxiety Arthritis Restless legs Difficulty swallowing History of IBS Gastric reflux Non-smoker Leg cramps History of pain when walking History of edema Gout Asthma Home Medications ?Medication ?Instructions ?Recorded ?Last Taken ?Type albuterol sulfate 90 mcg/actuation 3 inh inhalation Q4 H PRN shortness 07/29/25 Unknown History breath activated powder inhaler of breath or wheezing alprazolam 0.25 mg tablet 0.25 mg PO PRN PRN anxiety 1 09/29/24 08/02/25 History celecoxib 100 mg capsule (Celebrex) 100 mg PO DAILY pa in 07/29/25 Unknown History cetirizine 10 mg capsule (Zyrtec) 10 mg PO DAILY PRN a llergy symptoms 07/29/25 08/02/25 History dupilumab 300 mg/2 mL subcutaneous 300 mg subcut FR Unknown History pen injector (Dupixent) fluticasone propionate 50 1 spray intranasal DAILY PRN 07/29/25 08/02/25 History mcg/actuation nasal allergy symptoms spray,suspension (Flonase Allergy Relief) furosemide 20 mg tablet 20 mg PO DAILY PRN edema 09/2207/29/25 History omeprazole 40 mg capsule,delayed 40 mg PO DAILY PRN GE RD 07/29/25 08/02/25 History release trazodone 100 mg tablet 100 - 200 mg PO QHS 07/29/25 Unknown History acetaminophen 650 mg 650 mg PO Q8H 10 days #30 ta bs 08/02/25 Unknown Rx tablet,extended release (Tylenol 8 Hour) ascorbic acid (vitamin C) 1,000 mg 1 g PO DAILY 90 day s #90 tabs 08/02/25 Unknown Rx tablet (Vitamin C) aspirin 81 mg tablet,delayed 81 mg PO DAILY 30 days #3 0 tabs 08/02/25 Unknown Rx release cholecalciferol (vitamin D3) 125 125 mcg PO DAILY 3 mo nths #90 tabs 08/02/25 Unknown Rx mcg (5,000 unit) tablet (Vitamin D3) cyclobenzaprine 10 mg tablet 10 mg PO TID muscle spasm 7 days 08/02/25 Unknown Rx #21 tabs docusate sodium 100 mg capsule 100 mg PO DAILY 10 days #10 caps 08/02/25 Unknown Rx (Colace) oxycodone 5 mg tablet 5 mg PO Q4H pain 7 days #42 tabs 08/02/25 Unknown Rx cyclobenzaprine 10 mg tablet 10 mg PO TID muscle spasm 7 days 08/08/25 Unknown R x #21 tabs oxycodone 5 mg tablet 5 mg PO Q4H pain 7 days #42 tabs 08/08/25 Unknown Rx methylprednisolone 4 mg tablets in See Rx Instructions PO .COMPLEX 08/09/25 Unknown Rx a dose pack (Medrol ([place])) #21 tabs acetaminophen 650 mg 650 mg PO Q8H 10 days #30 ta bs 08/16/25 Unknown Rx tablet,extended release (Tylenol 8 Hour) oxycodone 5 mg tablet 5 mg PO Q4H pain 7 days #42 tabs 08/16/25 Unknown Rx ciprofloxacin HCl 500 mg tablet 500 mg PO BID 7 days # 14 TABLETS 08/27/25 Unknown Rx ondansetron 4 mg disintegrating 4 mg PO Q8H PRN PRN Na usea #10 tabs 08/27/25 Unknown Rx tablet Allergy/AdvReac Type Severity Reaction Status Date / Time bee venom protein (honey bee) Allergy Anaphylaxis Verified 08/27/25 20:32 Cyanoacrylates Allergy Rash Verified 08/27/25 20:32 Family History no significant family his Surgical History Hx of left knee surgery Hx laparoscopic cholecystectomy Hx of foot surgery Hx of hand surgery History of bunionectomy of left great toe Hx of nasal septoplasty H/O medial meniscus repair of right knee History of esophagogastroduodenoscopy (EGD) Social History household members: spouse current occupational status: employed Smoking Status: Never smoker alcohol intake: never EXAM Physical Exam Const Vital Signs: 08/27/25 20:31 08/27/25 20:32 08/27/25 21:32 Temperature 98.2 F 98.2 F 98.2 F Temperature Source Oral Oral Oral Pulse Rate 100 112 H 102 H Respiratory Rate 16 18 18 Blood Pressure 154/102 H 147/95 H 142/104 H Blood Pressure Mean 119 112 116 Pulse Ox 98 97 97 Oxygen Delivery Method Room Air Room Air Room Air 08/27/25 22:00 Temperature 98.2 F Temperature Source Oral Pulse Rate 99 Respiratory Rate 18 Blood Pressure 142/104 H Blood Pressure Mean 116 Pulse Ox 100 Oxygen Delivery Method Room Air [facility] [place] Narr[place] Medical decision making narrative: HISTORY OF PRESENT ILLNESS: Chief complaint: Concern for foot infection 40-year-old male presents concern for foot infection. Notes he follows with Dr. Kimbrough. The patient states he underwent toe surgery by Dr. Kimbrough on August 02, 2025. States he saw Dr. Kimbrough in the office yesterday for debridement. Dr. Kimbrough told the patient we got any worse to come into the ED. He states it has gotten worse. He states today he experienced nausea and vomiting. Also notes chills. Denies history of diabetes. Patient notes he started antibiotics yesterday and has only had 1 dose. REVIEW OF SYSTEMS: Pertinent positives: Foot pain, nausea and vomiting Pertinent negatives: Abdominal pain, chest pain, shortness of breath PHYSICAL EXAM: Nursing triage notes reviewed, Vital signs reviewed Constitutional: please see [facility] Abdomen: Soft, nontender, no peritoneal signs, no rigidity, rebound or guarding noted. No pulsatile abdominal masses auscultated bruits noted. Extremities: No edema Neuro: Intact sensation L1-S1 dermatomal distributions. Intact 5/5 strength in hip flexion (T12-L3). Knee extension (L2-L4). Ankle dorsiflexion (L4-L5). Ankle plantar flexion (S1). Great toe extension (L5). 2+ patellar and Achilles DTRs. Skin: there is approximately a 2 cm linear defect along the metatarsal interspace between the 1st and 2nd digit on the dorsal surface of the left foot. There is some surrounding redness but no purulent drainage. There is no fluctuance, no induration no crepitus no bullae. There is not warm and is not tender to palpation. MEDICAL DECISION MAKING: Chief Complaint: please see HPI External records reviewed: Reviewed prior ED visits. Reviewed prior medications Factors affecting care: History of hallux valgus Social determinants of health: none History obtained from others: Consults: Podiatry (Dr. Echevarria) [facility] Narrative: Patient was initially hemodynamically stable, afebrile, nontoxic-appearing. Exam with some erythema. No fluctuance, no induration, no crepitus, no bullae. There is slight serosanguineous drainage. Tissue looks healthy I considered the following differential diagnosis: Osteomyelitis, postop infection, cellulitis I obtained a broad lab and imaging workup to further determine if the patient was suffering from a life-threatening etiology. Initially treated with vancomycin. After reviewing the patient's recent culture which grew gram-negative rods also added on Zosyn. ALL IMAGES (IF OBTAINED) HAVE BEEN PERSONALLY REVIEWED AND INTERPRETED BY MYSELF. X-ray of the patient's foot was read reviewed personally myself showed no evidence of bony abnormality or osteomyelitis. Radiologist read my interpretation CBC leukocytosis suggestive of systemic information, no anemia or thrombocytopenia no ESR within normal limit suggestive no systemic inflammation BMP without evidence of significant electrolyte abnormalities, no anion gap, no acute kidney injury. CRP slightly elevated consistent with systemic inflammation Discussed with podiatry on-call Dr. Echevarria. He communicated with Dr. Kimbrough. They noted the patient based on his history, physical exam, labs images safe for discharge home. They recommended adding gram-negative coverage in the form of ciprofloxacin 500 mg twice daily for 7 days. They further recommended constant elevation, cleansing Betadine daily, gauze and a compression sock. They note he should stay on Keflex and they know he can follow-up in the office as scheduled with Dr. Kimbrough or sooner with Dr. Echevarria. The patient and/or family, caregivers express understanding. The patient and/or family, caregivers agrees with the plan. Shared decision making: I will have a discussion with the patient and or visitors regarding risk/benefits of further testing or admission. They will be made aware of of the risk/benefits inherent in this decision they will be given the opportunity to voice understanding. Total critical care time today provided was at least 0 minutes. This excludes separately billable procedures. Critical care time (if documented) is secondary to the patient having high probability of clinically significant/life thr eatening deterioration in the patient's condition which required my urgent intervention. Impression: 1. Postop infection 2. History of hallux valgus surgery 3. Leukocytosis Dispo: discharge This note was generated with [employer] dictation software. It may contain incorrect words, spelling, and punctuation that were not noted in review of the chart prior to signing. Lab Data Labs: Laboratory Results - last 24 hr 08/27/25 20:46 WBC 13.2 H RBC 5.69 Hgb 16.1 Hct 48.6 MCV 85.4 MCH 28.3 MCHC 33.1 RDW Std Deviation 36.3 RDW Coeff of Jerzy 11.9 Plt Count 270 MPV 9.8 Immature Gran % (Auto) 0.600 Neut % (Auto) 70.6 H Lymph % (Auto) 16.3 L [place] % (Auto) 6.2 Eos % (Auto) 5.7 H Baso % (Auto) 0.6 Absolute Neuts (auto) 9.3 H Absolute Lymphs (auto) 2.15 Nucleated RBC % 0 ESR 8 Sodium 141 Potassium 3.6 Chloride 101 Carbon Dioxide 27.0 Anion Gap 12 BUN 8 Creatinine 1.09 Estim Creat Clear Calc 115.26 Est GFR (MDRD) Non-Af 87 BUN/Creatinine Ratio 7.6 L Glucose 84 Calcium 9.4 C-React Prot Ext Range 7.48 H Radiography Diagnostic Testing: Clinical Impression(s) from Imaging Studies Foot X-Ray 08/27/25 20:56 IMPRESSION: No acute or aggressive osseous abnormality. Postoperative changes to the 1st MTP joint, as described. Reading Location: [facility] Discharge Plan Triage Chief Complaint: Lower Extremity Injury ED Provider: Reddy Johnson Dx/Rx/DC Orders Instructions: ED Wound Infection after surgery Prescriptions: New ciprofloxacin HCl 500 mg tablet 500 mg PO BID 7 Days Qty: 14 0RF ondansetron 4 mg tablet,disintegrating 4 mg PO Q8H PRN PRN (Reason: Nausea) Qty: 10 0RF No Action alprazolam 0.25 mg tablet 0.25 mg PO PRN PRN (Reason: anxiety) furosemide 20 mg tablet 20 mg PO DAILY PRN (Reason: edema) Dupixent Pen 300 mg/2 mL pen injector 300 mg SUBCUT FR Patient Comments: [NO ORIGINAL SIG] trazodone 100 mg tablet 100 - 200 mg PO QHS celecoxib [Celebrex] 100 mg capsule 100 mg PO DAILY albuterol sulfate 90 mcg/actuation aerosol powdr breath activated 3 inh inhalation Q4H PRN (Reason: shortness of breath or wheezing) Rx Instructions: until breathing returns to target peak flow/parameters fluticasone propionate [Flonase Allergy Relief] 50 mcg/actuation spray,suspension 1 spray intranasal DAILY PRN (Reason: allergy symptoms) Rx Instructions: administer into each nostril Zyrtec 10 mg capsule 10 mg PO DAILY PRN (Reason: allergy symptoms) omeprazole 40 mg capsule,delayed release(DR/EC) 40 mg PO DAILY PRN (Reason: GERD) oxycodone 5 mg tablet 5 mg PO Q4H 7 Days Qty: 42 0RF cyclobenzaprine 10 mg tablet 10 mg PO TID 7 Days Qty: 21 0RF ascorbic acid (vitamin C) [Vitamin C] 1,000 mg tablet 1 g PO DAILY 90 Days Qty: 90 0RF aspirin 81 mg tablet,delayed release (DR/EC) 81 mg PO DAILY 30 Days Qty: 30 0RF acetaminophen [Tylenol 8 Hour] 650 mg tablet extended release 650 mg PO Q8H 10 Days Qty: 30 0RF docusate sodium [Colace] 100 mg capsule 100 mg PO DAILY 10 Days Qty: 10 0RF cholecalciferol (vitamin D3) [Vitamin D3] 125 mcg (5,000 unit) tablet 125 mcg PO DAILY 90 Days Qty: 90 0RF oxycodone 5 mg tablet 5 mg PO Q4H 7 Days Qty: 42 0RF cyclobenzaprine 10 mg tablet 10 mg PO TID 7 Days Qty: 21 0RF methylprednisolone [Medrol ([place])] 4 mg tablets,dose pack See Rx Instructions PO .COMPLEX Qty: 21 0RF Rx Instructions: for 6 days oxycodone 5 mg tablet 5 mg PO Q4H 7 Days Qty: 42 0RF acetaminophen [Tylenol 8 Hour] 650 mg tablet extended release 650 mg PO Q8H 10 Days Qty: 30 0RF Primary Care Provider: Simba Horton Referrals: Brian Kimbrough DPM [Med Staff - Active Staff, Podiatry] Sammy Echevarria DPM [Med Staff - Active Staff, Podiatry] Activity Restrictions/Additional Instructions: Thank you for trusting us with your care today! Your labs images are reassuring. There is no sign of a deeper infection or bone infection I discussed your case at length with the podiatry team at [facility]. Spoke to both Dr. Kimbrough and Dr. Echevarria. They reviewed your case and recommended additional antibiotics based on your recent wound culture results. Please start taking ciprofloxacin as prescribed. Please continue taking Keflex. They further recommend you use Betadine to cleanse wound daily. Keep the wound covered. Use gauze and compression socks per the report. They further recommended elevating the foot is much as possible. Please take Tylenol (2 pills, 650 mg), ibuprofen (2 pills, 400 mg) every 6 hours as needed for pain and fever control. Please return to the emergency department if your symptoms change or worsen. If you have further concerns you can follow-up with the podiatry team using the information provided. Dr. Echevarria noted he would be in the office this week. He notes Dr. Kimbrough would not be back until next week. Print Language: Japanese Disposition Disposition: Home, Self Care
--- OUTSIDE RECORDS SUMMARY | 2025-08-27 20:47 | XMS RPT_ITS | CCD ---
Author Organization [facility] Care Team Providers Care Production Utility Worker Name Role Phone MELVINA, ROLANDA-CHI Unavailable Unavailable FRITZ ANGELES Unavailable Unavailable Simba Horton DO Primary Care Provider Simba Horton DO Primary Care Provider Simba Horton DO Primary Care Provider Simba Horton DO Primary Care Provider Simba Horton DO Primary Care Provider Davie PROMOTIONS ASSISTANT.Shelly CALDERON Unavailable Deloris PROMOTIONS ASSISTANT.Tuan CALDERON Unavailable Dr. Simba Horton DO Primary Care Provider Dr. Simba Horton DO Referring Provider Davon Mckeon Attending Provider Dr. Fritz Beasley DO Attending Provider Dr. Fritz Beasley DO Emergency Provider Shiv Garcia MD Emergency Provider Lex PROMOTIONS ASSISTANT.Ashlee CALDERON Unavailable Dr. Simba Horton DO Primary Care Provider Assessment, Health Risk Attending Provider Unava gracie Kimbrough DPM, Dr. Torres Attending Provider Luis E WRIGHTM, Dr. Torres Referring Provider SIMBA HORTON Primary Care Unavailable ROBI HENDRICKSON Referring Unavailable ARTURO RAUSCH Attending Unavailable VI TREVINO JR Attending Unavailable MARIA G, ROBI Sofie Referring Unavailable HORTON, SIMBA L Primary Care Unavailable SEBAS LAWRENCE Attending Unavailable HORTON, SIMBA L Primary Care Unavailable LAWRENCE, SEBAS Referring Unavailable HORTON, SIMBA L Primary Care Unavailable HORTON, SIMBA L Attending Unavailable HORTON, SIMBA L Primary Care Unavailable MARIA G, ROBI L Referring Unavailable HORTON, SIMBA L Primary Care Unavailable KENISHA NEWBY Attending Unavailable TUAN PUENTES Attending Unavailable HORTON, SIMBA L Primary Care Unavailable ASHLEE GOODEN Attending Unavailable SELF Referring Unavailable HORTON, SIMBA L Primary Care Unavailable HORTON, SIMBA L Attending Unavailable HORTON, SIMBA L Primary Care Unavailable HORTON, SMIBA L Primary Care Unavailable SHELLY BRODERICK Attending Unavailable HORTON, SIMBA L Primary Care Unavailable Joaquín Lopez Attending Unavailable Joaquín Lopez Referring Unavailable Horton, Simba Primary Care Unavailable Horton, Simba Primary Care Unavailable Cheryl Kimbrough Attending Unavailable Cheryl Kimbrough Referring Unavailable RecarlosaShiv Attending Unavailable Horton, Simba Primary Care Unavailable Davon Mckeon Attending Unavailable Horton, Simba Primary Care Unavailable Horton, Simba Referring Unavailable Shiv Garcia Attending Unavailable Horton, Simba Primary Care Unavailable Fritz Beasley Attending Unavailable Horton, Simba Primary Care Unavailable Horton, Simba Primary Care Unavailable Cheryl Kimbrough Attending Unavailable Assessment, Health Risk Attending Unavaila ble Horton, Simba Primary Care Unavailable Allergies Allergy Classification Reported Allergen(s) Allergy Type Date of Onset Reaction(s) Facility (20 sources) BEE STING; Translations: [BEE STING] Propensity to adverse reactions (disorder) 3 Swelling [facility] Other [facility] (20 sources) Octyl 2-Cyanoacrylate Drug Allergy 1 Rash [facility] (5 sources) bee venom protein (honey bee) Allergy to substance 3 Anaphylaxis [facility] (2 sources) SURGICAL GLUE Allergy to substance 1 Rash [facility] (4 sources) Cyanoacrylates; Translations: [Cyanoacrylates] Allergy to substance 3 Rash [facility] (2 sources) 2-OCTYL CYANOACRYLATE; Translations: [2-OCTYL CYANOACRYLATE] Propensity to adverse reactions to drug (disorder) 1 [facility] Repository (1 source) bee venom protein (honey bee) Drug allergy (disorder) 5 [facility] Repository Medications Current Medications Medication Drug Class(es) Dates Sig (Normalized) Sig (Original) [id number] 200 actuat albuterol 0.09 mg/actuat metered dose [...] mg oral tablet (20 sources) Benzodiazepine Start: 5 End: 5 take 1 tablet by mouth [...] oral tablet (1 source) Macrolide Antimicrobial Start: End: azithromycin (ZITHROMAX Z-ARSLAN) 250 mg tablet Indications: Acute non-recurrent pansinusitis , PND (post-nasal drip) , Body aches Take 2 tablets day one, then, 1 tablet daily until gone. 6 tablet 04/24/2025 04/29/2025 Active celecoxib 100 mg oral capsule (10 sources) Nonsteroidal Anti-inflammatory Drug Start: take 1 [...] Start: 12-31-2020 take 1 tablet by rosalio th three times daily as needed for muscle spasms cyclobenzaprine (FLEXERIL) 10 mg tablet Indications: Acute right-sided low back pain with right-sided sciatica Take 1 tablet by mouth three times daily as needed for Muscle Spasm. 30 tablet 0 12/31/2020 Active Comment on above: Take 1 tablet by rosalio th three times daily as needed for Muscle Spasm. Take 1 tablet by rosalio th three times a day as needed for muscle spasm. 12 hr dextromethorphan hydrobromide 30 mg / guaiFENesin 600 mg extended release oral tablet (2 sources) Uncompetitive S-fizbqt-S-aspartate Receptor Antagonist, Sigma-1 Agonist Start: End: take [...] on above: Take 1 tablet by rosalio twice daily for 10 days. 2 ml dupilumab 150 mg/ml auto-injector (20 sources) Interleukin-4 Receptor alpha Antagonist Start: 05-13-20 inject 300 mg by subcutaneous injection every week dupilumab (DUPIXENT PEN) 300 mg/2 mL pen injection Indications: Eosinophilic esophagitis Inject 300 mg subcutaneously one time a week. For eosinophilic esophagitis; ICD10 = K20.0 12 each 3 05/13/2025 Active Start: 11-07-2023 End: 07-25-2024 dupilumab 300 mg/2 mL subcut aneous syringe (DUPIXENT SYRINGE) Indications: Eosinophilic esophagitis Inject 2 mL subcutaneously one time a week. 12 Each 3 11/07/2023 07/25/2024 Discontinued Start: 08-01-2023 End: 05-09-2025 inject 300 mg by subcutaneous injection every week dupilumab (DUPIXENT PEN) 300 mg/2 mL pen injection Indications: Eosinophilic esophagitis Inject 300 mg subcutaneously one time a week. For eosinophilic esophagitis; ICD10 = K20.0 12 Each 3 09/13/2024 05/09/2025 Discontinued Comment on above: Inject 300 mg subcut aneously one time a week. Inject 2 mL subcutan eously one time a week. [id number] 0.3 ml EPINEPHrine 1 mg/ml auto-injector (20 sources) alpha-Adrenergic Agonist, beta-Adrenergic Agonist, Catecholamine Start: EPINEPHrine (EPIPEN) 0.3 mg/0.3 mL auto-injector Inject at onset of bee venom sting 2 Each 1 06/05/2024 Active fluticasone propionate 0.05 mg/actuat metered dose nasal spray (20 sources) Corticosteroid Start: 023 take 1 spray(s) nasal route once daily at bedtime fluticasone (FLONASE) 50 mcg/actuation nasal spray Indications: Viral syndrome Use 1 [place] in each nostril daily at bedtime. 1 Each 10/07/2022 Active Comment on above: Use 1 [place] in each nostril daily at bedtime. furosemide 20 mg oral tablet (13 sources) Loop Diuretic Start: End: take 1 [...] tablet (20 sources) Nonsteroidal Anti-inflammatory Drug Start: 025 take 1 tablet by mouth once daily [...] rosalio th once daily. With food. methylPREDNISolone (7 sources) Corticosteroid Start: 04-24-2025 End: 04-30-2025 methylPREDNISolone (MEDROL, ARSLAN,) 4 mg Dose-Pack Indications: Acute non-recurrent pansinusitis , PND (post-nasal drip) , Body aches Take as instructed per package. 21 tablet 04/24/2025 04/30/2025 Active Start: 10-05-2019 End: 10-10-2019 take 1 tablet by mouth once Methylprednisolone (Medrol (Arslan)) 4 mg tablets,dose pack Discontinued 4 mg PO per package directions 21 5 0 October 05, 2019 1:00am October 09, 2019 [...] Comment on above: Take 1 tablet by [facility] twice daily as needed (for pain/inflammation). Take [...] Comment on above: Take 1 capsule by [facility] once daily. oseltamivir 75 mg oral capsule (4 sources) Neuraminidase Inhibitor Start: 10-11-19 End: 10-16-19 24 take 1 capsule by mouth twice daily oseltamivir (TAMIFLU) 75 mg capsule Indications: Flu-like symptoms Take 1 capsule by mouth two times a day for 5 days. 10 capsule 0 10/11/2023 10/16/2023 Active Comment on above: Take 1 capsule by [facility] two times a day for 5 days. oxyCODONE hydrochloride 5 mg oral tablet (4 sources) Opioid Agonist Start: 09-16-19 25 take 1 tablet by mouth every six hours as needed for pain Oxycodone 5 mg tablet Active 5 mg PO EVERY 6 HOURS as needed for pain 12 3 0 September 16, 2024 Grade 2 sprain of medial collateral ligament of left knee Sprain of medial collateral ligament of left knee, initial encounter Start: 04-08-2024 End: 07-11-2024 take 1 tablet by mouth every eight hours as needed for pain Oxycodone 5 mg tablet Discontinued 5 mg PO Q8H as needed for pain 10 3 0 April 08, 2024 July 11, 2024 7:34pm Right knee pain Pain in right knee predniSONE 10 mg oral tablet (20 sources) [...] on above: Take 2 tablets by mo ut once daily. Take 2 tablets by mo [...] / codeine phosphate 30 mg oral tablet (2 sources) Opioid Agonist Start: 04-08-2024 End: 07-11-2024 Acetaminophen-Codeine 300-30 mg tablet Discontinued 1 {tbl} PO Q8H as needed for pain April 08, 2024 12:00am July 11, 2024 7:34pm acetaminophen 325 mg / HYDROcodone bitartrate 5 mg oral tablet (15 sources) Opioid Agonist Start: 05-31-2023 End: 12-02-2023 HYDROcodone-acetamino phen (NORCO) 5-325 mg per tablet acetaminophen 325 mg / oxyCODONE hydrochloride 5 mg oral tablet (20 sources) Opioid Agonist Start: 03-03-2024 End: 04-08-2024 Oxycodone-Acetaminoph en (Percocet) 5-325 mg tablet Discontinued 1 {tbl} PO EVERY 6 HOURS as needed for pain 12 3 0 March 03, 2024 April 08, 2024 8:50pm Postoperative pain Other acute postprocedural pain Start: 12-09-2023 End: 01-07-2025 oxyCODONE-acetaminophen (PER COCET) 5-325 mg tablet 12/09/2023 01/07/2025 Discontinued amoxicillin 875 mg / clavulanate 125 mg oral tablet (10 sources) Penicillin-class Antibacterial Start: 08-27-2024 End: 09-06-2024 [...] tablet Discontinued 1 {tbl} PO Q12H 20 10 0 October 05, 2019 1:00am October 14, 2019 1:00am October 15, 2019 1:08am Acute sinusitis, unspecified Comment on above: Take 1 tablet by rosalio twice daily for 7 days. aspirin 81 mg delayed release oral tablet (20 sources) Platelet Aggregation Inhibitor, Nonsteroidal Anti-inflammatory Drug End: 01-08-20 25 take 1 tablet by mouth once daily aspirin, enteric coated (ASPIRIN, ENTERIC COATED) 81 mg EC tablet Take 81 mg by mouth once daily. 01/07/2025 Discontinued benzonatate 100 mg oral capsule (20 sources) Non-narcotic Antitussive Start: 08-02-20 23 End: 08-02-20 23 take 2 capsules by mouth every eight [...] on above: Take 1 capsule by mo cth three times daily as needed for cough. Take 2 capsules by m outh three times a day as needed. budesonide 0.25 mg/ml inhalation suspension (20 sources) Corticosteroid Start: 03-09-20 21 End: 11-06-19 budesonide (PULMICORT) 0.5 mg/2 mL [...] 100 % powd (17 sources) End: 12-07-19 23 Creatinine, Bulk, 100 % powd Creatinine, Bulk [...] as needed. Take 2 tablets by mo cth every 8 hours as needed for nausea/vomiting. polyethylene glycol [id number] [id number] mg / potassium chloride 2970 mg / sodium bicarbonate 6740 mg / sodium chloride 5860 mg / sodium sulfate 30996 mg powder for oral solution (11 sources) [...] above: Take 1 tablet by rosalio th four times daily. TAKE 1 PO 30 MINUTES BEFORE MEALS AND AT BEDTIME. traMADol hydrochloride 50 mg oral tablet (20 sources) Opioid Agonist Start: 12-09-2023 End: 05-01-2024 traMADol (ULTRAM) 50 mg tablet 12/09/2023 05/01/2024 Discontinued vitamin b12 2.5 mg oral tablet (5 sources) Vitamin B12 Start: 09-18-2018 End: 09-17-2019 [...] [Palpitations] 08-24-2021 Episodic Coagulation and hemorrhagic disorders (3 sources) Petechiae; Translations: [Spontaneous ecchymoses] Onset: 04-23-2025 11-27-2024 Episodic Diseases of white blood cells (1 source) Leukocytosis; Translations: [Elevated white blood cell count, unspecified] 12-14-2024 Chronic Esophageal disorders (20 sources) Eosinophilic esophagitis; Translations: [Eosinophilic esophagitis] Onset: 05-25-2021 05-25-2021 Chronic Essential hypertension (5 sources) Elevated blood pressure; Translations: [Essential (primary) hypertension] 11-07-2022 Chronic Gout and other crystal arthropathies (20 sources) Primary gout; Translations: [Idiopathic gout, unspecified ankle and foot] Onset: 08-13-2019 08-13-2019 Chronic Intracranial injury (3 sources) Concussion injury of body structure; Translations: [Concussion] 10-12-2023 Episodic Miscellaneous mental health disorders (20 sources) Insomnia; Translations: [Other insomnia not due to a substance or known physiological condition] Onset: 05-01-2024 05-01-2024 Chronic Mood disorders (20 sources) Dysthymia; Translations: [Dysthymic disorder] Onset: 02-03-2022 02-03-2022 Chronic Open wounds of extremities (5 sources) Laceration of right middle finger; Translations: [Laceration without foreign body of right middle finger without damage to nail, initial encounter] 09-17-2019 Episodic Open wounds of extremities (5 sources) Laceration of hand; Translations: [Laceration without foreign body of left hand, initial encounter] 09-16-2020 Episodic Osteoarthritis (2 sources) Primary osteoarthritis, left ankle and foot; Translations: [Unilateral primary osteoarthritis, left knee] Onset: 10-16-2024 Chronic Other circulatory disease (1 source) Elevated blood-pressure reading without diagnosis of hypertension; Translations: [Elevated blood-pressure reading, without diagnosis of hypertension] Episodic Other connective tissue disease (2 sources) Pain of right lower leg; Translations: [Pain in right lower leg] 07-19-2024 Episodic Other connective tissue disease (2 sources) H/O: gout; Translations: [Personal history of other diseases of the musculoskeletal system and connective tissue] 09-24-2024 Episodic Other endocrine disorders (1 source) Hypotestosteronism; Translations: [Endocrine disorder, unspecified] 05-04-2023 Episodic Other gastrointestinal disorders (2 sources) Diarrhea; Translations: [Diarrhea, unspecified] Episodic Other injuries and conditions due to external causes (3 sources) Injury of left ankle; Translations: [Unspecified injury of left ankle, subsequent encounter] Episodic Other liver diseases (5 sources) Enzyme level - finding; Translations: [Elevated transaminase measurement] 05-04-2021 Episodic Other lower respiratory disease (2 sources) Cough; Translations: [Acute cough] 06-26-2024 Episodic Other nervous system disorders (1 source) Paresthesia of hand ; Translations: [Anesthesia of skin] 04-18-2024 Episodic Other nervous system disorders (2 sources) Postoperative pain ; Translations: [Other acute postprocedural pain] 03-12-2024 Episodic Other non-traumatic joint disorders (4 sources) Acute ankle pain; Translations: [Pain in left ankle and joints of left foot] 12-05-2022 Episodic Other non-traumatic joint disorders (2 sources) Effusion of right knee joint; Translations: [Effusion, right knee] 04-16-2024 Episodic Other non-traumatic joint disorders (6 sources) Pain in unspecified knee; Translations: [Acute knee pain] 03-12-2024 Episodic Other non-traumatic joint disorders (2 sources) Swollen knee region; Translations: [Effusion, unspecified knee] [...] sinusitis (chronic)] Chronic Other upper respiratory infections (17 sources) Acute upper respiratory infection; Translations: [Acute [...] source) NO SHOW 07-06-2024 Unclassified (1 source) light headed , sinus full, ears pop, fatigue , body aches Onset: 07-01-2025 Viral infection (1 source) Viral disease; Translations: [Viral infection, unspecified] Episodic Past or Other Problems Problem Classification Problem Date Documented Da te Episodic/Chronic Abdominal pain (20 sources) Abdominal pain; Translations: [Unspecified abdominal pain] Onset: 11-19-2020 Resolved: 11-19-2020 Episodic Acquired foot deformities (20 sources) Bunion; Translations: [Bunion of left foot] Onset: 04-26-2023 04-26-2023 Episodic Complications of surgical procedures or medical care (4 sources) Suture granuloma; Translations: [Other complications of procedures, not elsewhere classified, initial encounter] Onset: 12-07-2024 11-27-2024 Episodic Esophageal disorders (20 sources) Acute esophagitis; Translations: [Acute esophagitis] Onset: 01-21-2021 Resolved: 01-21-2021 Episodic Gastrointestinal hemorrhage (7 sources) Hematochezia; Translations: [Melena] Onset: 11-19-2024 11-05-2024 Episodic Hemorrhoids (13 sources) Internal hemorrhoids; Translations: [Other hemorrhoids] Onset: 01-10-2025 01-10-2025 Episodic Joint disorders and dislocations; trauma-related (1 source) Other tear of medial meniscus, current injury, left knee, initial encounter; Translations: [Other tear of medial meniscus, current injury, left knee, initial encounter] Onset: 10-16-2024 Episodic Nausea and vomiting (7 sources) Nausea, vomiting and diarrhea; Translations: [Nausea [...] Onset: 02-03-2022 02-03-2022 Episodic Sprains and strains (12 sources) Strain of calf muscle; Translations: [Strain of other muscle(s) and tendon(s) at lower leg level, right leg, initial encounter] Onset: 09-16-2024 11-07-2022 Episodic Unclassified (2 sources) Unknown / UNK(Unknown) Onset: 05-20-2018 Unclassified (1 source) Unspecified foreign body in esophagus causing other injury, initial encounter Onset: 05-20-2018 Results Test Name Value Interpretation Reference Range Facility [facility] 07[facility]01[facility]2025 [facility] CARL GROSS ([id number]) 1985 M Date Time Provider Department 07/01/25 3:00 PM [facility] During your visit today, we recorded the following information about you: Temperature Pulse Respiration Blood pressure 98.4 degrees 82/minute 16/minute 124/72 Weight 114.2 kg Ashlee Gooden APRN.CNP 07/01/2025 4:47 PM Signed This is a 40 year old male who presents today with: Sinus infection HISTORY OF PRESENT ILLNESS: Carl Gross is a 40-year-old male presenting with worsening URI symptoms. URI Symptoms: - Symptoms worsened on Tuesday after 3 weeks of intermittent allergy-like symptoms. - Denies fever. - Reports body aches. - Denies rhinorrhea; unable to blow much out. - Productive cough, mostly in the mornings, described as deep and barky. - Sputum is yellow with some red. - Denies dyspnea. - Taking NyQuil for symptom relief. - Reports fullness and tenderness in the upper sinuses. - Ears are popping. - Mild sore throat. - had similar symptoms and is recovering. - Doxycycline has been effective for past sinus infections - taking tessalon perles for cough and it's been effective PAST MEDICAL HISTORY: PAST MEDICAL HISTORY Diagnosis Date Acute right-sided [...] OF Right 12/05/2023 arthroscopic knee- meniscus repair PAST SURGICAL HISTORY OF 01/2025 EGD PAST SURGICAL HISTORY OF gallbladder removed SINUS SURGERY HX 2016 ALLERGIES Bee Sting and Dermabond [2-Octyl Cyanoacrylate] MEDICATIONS Current Outpatient Medications Medication Sig furosemide (LASIX) 20 mg tablet TAKE 1 TABLET BY MOUTH ONCE DAILY NEEDED FOR LEG EDEMA. dupilumab (DUPIXENT PEN) 300 mg/2 mL pen injection Inject 300 mg subcutaneously one time a week. For eosinophilic esophagitis; ICD10 = K20.0 traZODone (DESYREL) 100 mg tablet TAKE 1 [...] tablet by mouth once daily. For gout. EPINEPHrine (EPIPEN) 0.3 mg/0.3 mL auto-injector Inject [...] (FLONASE) 50 mcg/actuation nasal spray Use 1 [place] in each nostril daily at bedtime. montelukast (SINGULAIR) 10 mg tablet Take 1 tablet by mouth daily at bedtime. amino acids (BCAA ORAL) Take by mouth once daily. cetirizine (ZYRTEC) 10 mg tablet Take 10 mg by mouth once daily. doxycycline (VIBRA-TABS) 100 mg tablet Take 1 tablet by mouth two times a day for 7 days. No current facility-administered medications for this visit. FAMILY HISTORY Problem Relation Age of Onset Cancer Mother thyroid Cancer Father thyroid? Cancer Maternal Grandmother thyroid Hypertension Maternal Grandmother Hypertension Maternal Grandfather Anesthesia Problems No Family History Clotting Disorder No Family History Malig Hyperthermia No Family History SOCIAL HISTORY[1] REVIEW OF SYSTEMS Constitutional: (-) fever Head: (+) facial fullness, (+) facial tenderness Ears/Nose/Mouth/Throat: (+) ear popping, (+) sore throat, (-) nasal drainage Respiratory: (+) cough, (+) yellow sputum, (-) shortness of breath Musculoskeletal: (+) myalgia See HPI EXAM: BP 124/72 (BP Site: Left Arm, BP Position: Sitting, BP Cuff Size: Large Adult) Pulse 82 Temp 36.9 ?C (98.4 ?F) Resp 16 Wt 114.2 kg (251 lb 12.8 oz) SpO2 99% BMI 33.22 kg/m? PHYSICAL EXAM: General Appearance: Well appearing, alert, in no acute distress, well-hydrated, w (more content not included)... Normal [facility] ANES POSTPROC EVALon 025 ANES POSTPROC EVAL HNO ID: [id number] Author: JOSE RAYO MD Service: Anesthesiology Author Type: Anesthesiologist Type: Anesthesia Postprocedure Evaluation Filed: 06/06/2025 14:16 Note Text: POST ANESTHESIA EVALUATION NOTE : 1985 Procedure Summary Date: 06/06/25 Room / Location: [facility] Anesthesia Start: 935 Anesthesia Stop: 958 Procedure: EGD - THERAPEUTIC, EUS, OR TUBE INTERVENTIONS Diagnosis: Eosinophilic esophagitis (OTHER) Scheduled Providers: Arturo Rausch MD Responsible Provider: Jose Rayo MD Anesthesia Type: MAC ASA Status: 2 Anesthesia Type: MAC Last Vitals Vitals Value Taken Time BP 115/62 06/06/25 10:15 Temp 36.3 ?C (97.3 ?F) 06/06/25 10:01 Pulse 68 06/06/25 10:15 Resp 15 06/06/25 10:15 SpO2 96 % 06/06/25 10:15 Post Anesthesia Patient Status Patient Evaluation: bedside. [...] of care. Anesthesia Observations No Documentation SIGNATURE: Jose Rayo MD PATIENT NAME: Carl Gross DATE: June 06, 2025 TIME: 2:16 PM CSN: [id number] [facility] ANES PRE-OPon 06-06-2025 ANES PRE-OP HNO ID: [id number] Author: JOSE RAYO MD Service: Anesthesiology Author Type: Anesthesiologist Type: Anesthesia Preprocedure Evaluation Filed: 06/06/2025 09:17 Note Text: ANESTHESIOLOGY DAY OF SURGERY NOTE : 1985 Procedure Information Date/Time: 06/06/2545 Scheduled providers: Arturo Rausch MD Procedure: EGD - THERAPEUTIC, EUS, OR TUBE INTERVENTIONS Location: [facility] Estimated body mass index is 31.4 kg/m? as calculated from the following: Height as of this encounter: 185.4 cm (6' 1). Weight as of this encounter: 108 kg (238 lb). Most recent hematocrit and potassium results: Hematocrit 49.5 12/07/2024 Potassium 3.8 12/07/2024 Relevant Problems CARDIO (+) Internal hemorrhoids GI (+) GERD without esophagitis PULMONARY (+) Asthma (HCC) Other (+) Chronic gout of multiple sites I - PHYSICAL EVALUATION AIRWAY Patient intubated: No. Tracheostomy tube not present Mallampati: I. TM distance: >3 FB. Neck ROM: full ROM without neurological symptoms. Mouth opening: >3 FB. Short neck: no. Thick neck: no Lip Bite Test: I Microretrognathia/Micronagt hia/Recessed Chin: No DENTAL Dental findings: teeth intact. Additional exam findings: yes. CARDIOVASCULAR Rhythm: regular Rate: normal PULMONARY Breath sounds clear to auscultation. ABDOMINAL Obese: obesity present. II - ANESTHESIA PLAN ASA Score: 2 Anesthetic Plan: MAC The patient is not a current smoker. NPO Status: adequate Anesthetic plan additional comments: EOE Gerd Esophageal strictures with multiple EGDs in past Asthma. Beta Yoselyn Administration of chronic beta yoselyn medication not planned. Monitoring Plan Monitoring plan: standard ASA. Post Procedure Analgesic Plan Postoperative analgesic plan: parenteral or oral opioids. Informed Consent Anesthetic risks, benefits, alternatives, personnel and consent discussed: yes. Patient / Responsible Alliance Party agrees to proceed: yes Patient / Surrogate agrees to blood products: Yes DNR status not reviewed with patient and/or family prior to surgery. Significant changes in the patient condition since the History and Physical, not otherwise documented in primary service progress note: no. Potential Anesthesia issues that may suggest increased risk of complications or contraindication to planned procedure: none. Vitals Value Taken Time BP 132/82 06/06/25 08:47 Pulse 76 06/06/25 08:47 Resp 16 06/06/25 08:47 Temp 36 ?C (96.8 ?F) 06/06/25 08:47 SpO2 100 % 06/06/25 08:47 Outpatient Medications as of 06/06/2025 Medication Sig furosemide (LASIX) 20 mg tablet TAKE 1 TABLET BY MOUTH ONCE DAILY NEEDED FOR LEG EDEMA. dupilumab (DUPIXENT PEN) 300 mg/2 mL pen injection Inject 300 mg subcutaneously one time a week. For eosinophilic esophagitis; ICD10 = K20.0 traZODone (DESYREL) 100 mg tablet TAKE 1 TO 2 TABLETS BY MOUTH ONCE DAILY AT BEDTIME celecoxib (CELEBREX) 100 mg capsule Take 1 capsule by mouth two times a day. As needed for joint pain, take with food sertraline (ZOLOFT) 100 mg tablet Take 1 tablet by mouth once daily. omeprazole (PRILOSEC) 40 mg capsule Take 1 capsule by mouth two times a day. Take 30 min before breakfast and dinner amino acids (BCAA ORAL) Take by mouth once daily. allopurinol (ZYLOPRIM) 100 mg tablet Take 1 tablet by mouth once daily. For gout. EPINEPHrine (EPIPEN) 0.3 mg/0.3 mL auto-injector Inject at onset of bee venom sting albuterol HFA (PROAIR HFA) 90 mcg/actuation inhaler Inhale 2 Puffs as instructed every 4 hours as needed. cyclobenzaprine (FLEXERIL) 10 mg tablet Take 1 tablet by mouth three times a day as needed for muscle spasm. fluticasone (FLONASE) 50 mcg/actuation nasal spray Use 1 [place] in each nostril daily at bedtime. montelukast (SINGULAIR) 10 mg tablet Take 1 tablet by mouth daily at bedtime. cetirizine (ZYRTEC) 10 mg tablet Take 10 mg by mouth once daily. Facility-Administered Medications as of 06/06/2025 Medication Dose Route Frequency lidocaine 10 mg/mL (1 %) 1-2 mg injection (XYLOCAINE) 0.1-0.2 mL INTRADERMAL PRN lactated ringers 1,000 mL iv bolus 1,000 mL INTRAVENOUS ONCE I have interviewed and examined the patient. I have reviewed the medical record and/or the pre-anesthesia evaluation, pertinent labs, and test results. This contains updated information obtained within 48 hours of Surgery/Procedure. SIGNATURE: Jose Rayo MD PATIENT NAME: Carl Gross DATE: June 06, 2025 TIME: 9:16 AM CSN: [id number] [facility] HISTORY PHYSICALon HISTORY PHYSICAL HNO ID: [id number] Author: ARTURO RAUSCH MD Service: Gastroenterology Author Type: Physician Type: H&P Filed: 06/06/2025 09:15 Note Text: HISTORY AND PHYSICAL Carl Gross, 40 year old male Current history and physical on file: Yes Is a new History and Physical required for today's visit? Yes Indication for procedure: Other eosinophilic esophagitis PROCEDURE(S) SCHEDULED FOR: Dilation (any means), treatment of bleeding (any means) based on clinical findings and EGD (Esophagogastroduodenoscopy ) with or without biopsies, removal of polyps or lesions, dilation ( any means), treatment of bleeding ( any means), Barrx treatment of Bethel's Esophagus, image tube placement or cryo therapy treatment based on clinical findings. BASELINE BEHAVIOR: Calm BASELINE ORIENTATION: A AND O x3 All medications and allergies reviewed: Yes Skin Assessment: Warm dry mucus membranes pink Airway/Respiratory Assessment: Airway: visualization of the uvula- Yes Mouth: opening greater than 2 fingerbreadths- Yes Neck: full range of motion- Yes Breath sounds clear/equal- Yes Cardiac Assessment: Regular rate and rhythm without murmur Abdominal Assessment: Abdomen soft, non-tender, no masses or organomegaly. Sedation Plan: MAC Additional Comments: None Arturo Rausch MD [facility] Pathology biopsy report Derek (Tiss)on 06-06-2025 AP DISCLAIMER [facility] Comment on above: Order Comment: Speci men Type: TISSUE SPECIMEN Ordering Facility: [facility] Address: [address] [place] [address] Result Comment: Gonzalo Sood Test (LDT) Disclaimer: Performance characteristics of immunohistochemical, immunofluorescent, and chromogenic in-situ hybridization tests have been determined by the performing laboratory within the [facility] Department of Pathology and Laboratory Medicine ([facility], [facility], [facility], [facility], [facility], [facility], or [facility]) in a manner consistent with CLIA requirements. One or more of these tests may not have been cleared or approved by the FDA. The [facility] Department of Pathology and Laboratory Medicine is regulated under CLIA as qualified to perform high-complexity testing. These tests are used for clinical purposes. These should not be regarded as investigational or for research. Positive and negative controls stain appropriately. Performed By: #### 6 6121-5 #### [facility] CLIA [id number] [address] [place] [address] OF JE[facility]NE [facility] CLIA [id number] [address] [place] [address] OF JEANNE CASE REPORT Normal [facility] Comment on above: Order Comment: Speci men Type: TISSUE SPECIMEN Ordering Facility: [facility] Address: [address] [place] [address] Result Comment: [facility] Pathology Report Case: [id number] Authorizing Provider: Arturo Rausch MD Collected: 06/06/2025 09:53 AM Ordering Location: [facility] Received: 06/06/2025 02:42 PM Digestive [facility] Pathologist: Nasrin Haddad MD Specimens: A) - Esophagus, Distal, Biopsy B) - Esophagus, Proximal, Biopsy Performed By: #### 6 6121-5 #### [facility] CLIA [id number] [address] [place] [address] [place] OF [facility] CLIA [id number] [address] [place] [address] OF JEANNE CLINICAL HISTORY r/o EOE Normal [facility] Comment on above: Order Comment: Speci men Type: TISSUE SPECIMEN Ordering Facility: [facility] Address: [address] [place] [address] Performed By: #### 6 6121-5 #### [facility] CLIA [id number] [address] [place] [address] [place] OF [facility] CLIA [id number] [address] [place] [address] OF JEANNE FINAL DIAGNOSIS Normal [facility] Comment on above: Order Comment: Speci men Type: TISSUE SPECIMEN Ordering Facility: [facility] Address: [address] [place] [address] Result Comment: Constanza Ramesh sophagus, Distal, Biopsy: --Portions of squamous epithelium with no significant histologic abnormality -Negative for intraepithelial eosinophils B. Esophagus, Proximal, Biopsy: --Portions of squamous epithelium with no significant histologic abnormality -Negative for intraepithelial eosinophils at 1051 EDT Performed By: #### 6 6121-5 #### [facility] CLIA [id number] [address] [place] [address] LABORATORY CLIA [id number] [address] [place] [address] OF JEANNE FINAL PERFORMING LAB [facility] Comment on above: Order Comment: Speci men Type: TISSUE SPECIMEN Ordering Facility: [facility] Address: [address] [place] [address] Result Comment: Diag nostic interpretation performed at: [facility], [address] [place] [address] CLIA# [id number] Rn Occupational Health: Jerry Uribe MD Performed By: #### 6 6121-5 #### [facility] CLIA [id number] [address] [place] [address] LABORATORY CLIA [id number] [address] [place] [address] GROSS DESCRIPTION [facility] Comment on above: Order Comment: Speci men Type: TISSUE SPECIMEN Ordering Facility: [facility] Address: [address] [place] [address] Result Comment: A. E sophagus, Distal, Biopsy Received in formalin are multiple pieces of bustos, soft tissue aggregating to 0.6 x 0.2 x 0.2 cm. Totally submitted in one cassette. B. Esophagus, Proximal, Biopsy Received in formalin are multiple pieces of bustos, soft tissue aggregating to 2.2 x 0.2 x 0.2 cm. Totally submitted in one cassette. MRV June 06, 2025 5:58 PM Gross examination performed at [facility], [address] [place] [address] Performed By: #### 6 6121-5 #### [facility] CLIA [id number] [address] [place] [address] LABORATORY CLIA [id number] [address] OF [facility] Upper GI endoscopy 09-2 025 Upper GI endoscopy [facility] Gastrointestinal Endoscopy Patient Name: Carl Gross Procedure Date: 06/06/2025 9:34 AM Date of : 1985 Admit Type: Outpatient Age: 40 Room: [place] [address] Gender: Male Note Status: Finalized Attending MD: Arturo Rausch MD, [id number] Procedure: Upper GI endoscopy Indications: eosinophilic esophagitis Providers: Arturo Rausch MD Patient Profile: This is a 40 year old male. Refer to note in patient chart for documentation of history and physical. Referring Physician: Robi Hendrickson MD (Referring MD) Medicines: Monitored Anesthesia Care Complications: No immediate complications. Requesting Provider: Procedure: Pre-Anesthesia Assessment: - Prior to the procedure, a History and Physical was performed, and patient medications and allergies were reviewed. The risks and benefits of the procedure and the sedation options and risks were discussed with the patient. All questions were answered and informed consent was obtained. Patient identification and proposed procedure were verified by the physician in the pre-procedure area. Mental Status Examination: normal. Respiratory Examination: clear to auscultation. Prophylactic Antibiotics: The patient does not require prophylactic antibiotics. Prior Anticoagulants: The patient has taken no anticoagulant or antiplatelet agents. ASA Grade Assessment: II - A patient with mild systemic disease. After reviewing the risks and benefits, the patient was deemed in satisfactory condition to undergo the procedure. The anesthesia plan was to use monitored anesthesia care (MAC). Immediately prior to administration of medications, the [...] anesthesia was administered by the anesthesia team. Total Procedure Duration: 0 hours 14 minutes 17 seconds Findings: Mucosal changes were found in the entire esophagus. Esophageal findings were graded using the Eosinophilic Esophagitis Endoscopic Reference Score (EoE-EREFS) as: Edema Grade 0 Normal (distinct vascular markings), Rings Grade 0 None (no ridges or rings seen), Exudates Grade 0 None (no white lesions seen), Furrows Grade 0 None (no vertical lines seen) and Stricture none (no stricture found). Biopsies were obtained from the proximal and distal esophagus with cold forceps for histology of suspected eosinophilic esophagitis. Verification of patient identification for the specimen was done. Estimated blood loss was minimal. LA Grade A (one or more mucosal breaks less than 5 mm, not extending between tops of 2 mucosal folds) esophagitis with no bleeding was found in the lower third of the esophagus. A guidewire was placed and the scope was withdrawn. Dilation was performed with a Savary dilator with no resistance at 17 mm. The dilation site was examined following endoscope reinsertion and showed no mucosal tear. A guidewire was placed and the scope was withdrawn. Dilation was performed with a Savary dilator with no resistance at 19 mm. The dilation site was examined following endoscope reinsertion and showed no mucosal tear. A guidewire was placed and the scope was withdrawn. Dilation was performed with a Savary dilator with mild resistance at 20 mm. The dilation site was examined following endoscope reinsertion and showed no mucosal tear. The entire examined stomach was normal. The cardia and gastric fundus were normal on retroflexion. The examined duodenum was normal. Impression: - Normal esophagus - LA Grade A reflux esophagitis with no bleeding. - Esophageal dilation to 20mm without mucosal tear - Normal stomach. - Normal examined duodenum. - Biopsies were taken with a cold forceps for evaluation of eosinophilic esophagitis. Recommendation: - Patient has a contact number available for emergencies. The signs and symptoms of potential delayed complications were discussed with the patient. Return to normal activities tomorrow. Written discharge instructions were provided to the patient. - Resume previous diet. - Continue present medications. - Await pathology results. - Return to referring physician as previously scheduled. Attending Participation: I personally pe (more content not included)... Normal [facility] NURSING PROGon 06-05-2025 NURSING PROG HNO ID: [id number] Author: LB LAUREANO, RN Service: ? Author Type: Registered Nurse Type: Nursing Progress Note Filed: 06/05/2025 14:37 Note Text: [facility] ENDOSCOPY PRE PROCEDURE CALL Teddy. I'm calling from [facility] endoscopy to provide you with the information for your surgery/procedure tomorrow. Spoke to: Patient CONFIRM Procedure Planned with patient:Esophagogastroduode noscopy(EGD) with or without biopies based on clinical findings, removal of polyps or lesions Are you familiar with where 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 Yes When anesthesia or sedation is being given: Patient instructed you must have an adult production truck driver because you will not be able to work or drive for the rest of the day after your test.Yes Patient instructed to have a responsible, adult production truck driver to take them home after the procedure Yes. Due to having sedation, there is no working or driving the day of the procedure. Your production truck driver is allowed to wait here with you or they may drop you off and come back to pick you up. Patient instructed: Do not eat anything the morning of the procedure, including gum, hard candy and mints.Yes Patient instructed not bring any valuables, jewelry, or garcia and wear comfortable clothing. Do not wear makeup, lotion, or finger turkmen. Yes Patient instructed: Please bring a list of medications including over the counter, vitamin, and herbals. If you are on inhalers, please do them in the morning before your test and bring them with you.Yes Blood pressure, seizure, or thyroid medications may be taken with a couple sips of water ONLY 4 hours prior to arrival time. Is the patient on blood thinners?no If so,verify if pt contacted the prescribing doctor to see how long they may hold blood thinners prior to procedure. Are you diabetic?No If so, advise pt to contact prescribing doctor to verify if any modifications are needed for insulin and/or pills Reminder:diabetic medication instructions should be given by the patient's ordering physician. If blood sugar drops, they can have CLEAR liquids to bring it up until 3 hours prior to arrival time. Hospitalizations: No Procedure and/or bowel prep instructions given to patient and questions answered: Yes, and they verbalized their understanding of instructions given Any barriers to Patient learning (confusion? Games Dealer needed?): Patient/Patient Recruit Instructor responded appropriately on phone. Please complete your Pre-Check In paperwork in My Chart if applicable. If patient needs to reschedule please call: [phone] DDSI phone number: [phone] Type of instruction given: Verbal by telephone contact. [facility] HISTORY PHYSICALon HISTORY PHYSICAL HNO ID: [id number] Author: BECCA WEBSTER APRN.LADLE FILLER Service: ? Author Type: Nurse Practitioner Type: H&P Filed: 05/29/2025 10:05 Note Text: [facility] HISTORY AND PHYSICAL EXAMINATION SERVICE DATE: 05/29/2025 SERVICE TIME: 9:46 AM PRIMARY CARE PHYSICIAN: Simba Horton DO Assessment Patient has the following medical conditions which may affect elvia-operative course: Asthma Assessment: Pt reports last rescue inhaler use was several months ago. On daily Singulair. Respirations easy and unlabored during PACC video visit. Chronic gout of multiple sites Assessment: Controlled on allopurinol, follows with PCP Eosinophilic esophagitis Assessment: Last EGD 02/20. Controlled on omeprazole. Follows closely with GI. EGD - THERAPEUTIC, EUS, OR TUBE INTERVENTIONS (01/28/2025 2:02 PM) Distance Health with Robi Hendrickson MD (02/14/2024) GERD without esophagitis Assessment: Last EGD 02/20. Controlled on omeprazole. Follows closely with GI. EGD - THERAPEUTIC, EUS, OR TUBE INTERVENTIONS (01/28/2025 2:02 PM) Distance Health with Robi Hendrickson MD (02/14/2024) THA (generalized anxiety disorder) Assessment: Mood stable on current Rx (Zoloft, trazodone), follows with PCP Obesity, Class I, BMI 30-34.9 Assessment: Body mass index is 31.4 kg/m?. Situational depression Assessment: Mood stable on current Rx (Zoloft, trazodone), follows with PCP Seasonal allergies Assessment: Symptoms controlled on Zyrtec, Singulair, and Flonase; follows with PCP ANESTHESIA FINDINGS: Intubation History: No abnormal airway history Significant Anesthesia Considerations: +no ultrasound guidance required, veins collapse potential difficult IV/vein access Airway History: No abnormal airway history Trejo Activity Status Index: METS: Walk indoors, such as around the house (1.75 METs) Do light work around the house, such as dusting or washing dishes (2.70 METs) Take care of self; that is eating, dressing, bathing, using the toilet (2.75 METs) Walk a block or two on level ground (2.75 METs) Do moderate work around the house, such as vacuuming, sweeping floors, or carrying in groceries (3.50 METs) Do yardwork, such as raking leaves, weeding, or pushing a power mower (4.50 METs) Have sexual relations (5.25 METs) Climb a flight of stairs or walk up a hill (5.50 METs) DASI Score: 28.7 Patient denies any chest pain or undue shortness of breath with the above physical activity. Clinical Frailty Scale: 3. Well, with treated comorbid disease STOP-Bang Score: Male patient Denies snoring loudly Denies feeling tired, fatigued, or sleepy during the daytime Has not been observed to stop breathing or choking/gasping during sleep Denies having high blood pressure BMI less than or equal to 35 kg/m2 Patient 50 years old or younger Does not have a large neck STOP-Bang Score: 1 [id number] Score: Age: <65 Sex: male CHF history: No Hypertension history: No Stroke/TIA/thromboembolism history: No Vascular disease history: No Diabetes history: No [id number] Score: 0 Airway Note 11/19/2020 Final Airway Details Final airway type: endotracheal [...] Unrecognized esophageal intubation: no Airway not difficult Airway (11/19/2020 7:39 AM) I - PHYSICAL EVALUATION AIRWAY Patient intubated: No. Tracheostomy tube not present Mallampati: II. TM distance: >3 FB. Neck ROM: full ROM without neurological symptoms. Mouth opening: >3 FB. Short neck: no. Thick neck: no Gamez present: yes Lip Bite Test: I Microretrognathia/Micronagt hia/Recessed Chin: No DENTAL Dental findings: caps/crowns and missing tooth/teeth. Dentures, upper: partial. II - ANESTHESIA PLAN Anesthetic plan additional comments: *PACC/TCI - anesthesia choice. Informed Consent Prepared for Surgery: optimally prepared for surgery. Labs/EKG not indicated per PACC protocol. CONSULTS: Patient does not require consults for optimization at this time Planned Anesthetic: anesthesia choice The Following Tests/Procedures Have Been Initiated: No orders of the defined types were placed in this encounter. This is a virtual visit using [employer] video visit. It required patient-provider interaction for the medical decision making as documented below. REASON FOR VISIT: Carl Gross is a 40 year old male who is scheduled for EGD at the request of Dr. Arturo Rausch for consultation. My final recommendation will be communicated back to the requesting ph (more content not included)... [facility] CARL GROSS ([id number]) 1985 Date Time Provider Department 05/28/25 RAMYA TORRES IUNI During your visit today, we recorded the following information about you: Allergies As of Date: 05/28/2025 Noted Allergy Reaction BEE STING 09/22/2012 7 - Swelling Comments: Local swelling and shortness of breath DERMABOND (2-OCTYL CYANOACRYLATE) 12/01/2020 2 - Rash Date Reviewed: 04/24/2025 Reviewed by: Tuan Puentes APRN.LADLE FILLER - Fully Assessed Prescriptions as of 05/28/2025 - furosemide (LASIX) 20 mg tablet TAKE 1 TABLET BY MOUTH ONCE DAILY NEEDED FOR LEG EDEMA. - dupilumab (DUPIXENT PEN) 300 mg/2 mL pen injection Inject 300 mg subcutaneously one time a week. For eosinophilic esophagitis; ICD10 = K20.0 - traZODone (DESYREL) 100 mg tablet TAKE 1 TO 2 TABLETS BY MOUTH ONCE DAILY AT BEDTIME - celecoxib (CELEBREX) 100 mg capsule Take 1 capsule by mouth two times a day. As needed for joint pain, take with food - sertraline (ZOLOFT) 100 mg tablet Take 1 tablet by mouth once daily. - allopurinol (ZYLOPRIM) 100 mg tablet Take 1 tablet by mouth once daily. For gout. - EPINEPHrine (EPIPEN) 0.3 mg/0.3 mL auto-injector [...] (FLONASE) 50 mcg/actuation nasal spray Use 1 [place] in each nostril daily at bedtime. - montelukast (SINGULAIR) 10 mg tablet Take 1 tablet by mouth daily at bedtime. - amino acids (BCAA ORAL) Take by mouth once daily. - cetirizine (ZYRTEC) 10 mg tablet Take 10 mg by mouth once daily. Problem List As Of Date 05/28/2025 Noted Resolved Palpitations [R00.2] Well adult exam [...] stools [R19.5] 07/25/2024 Situational depression [F43.21] 07/25/2024 Internal hemorrhoids [K64.8] 01/10/2025 Encounter Status:Closed by RAMYA TORRES on 05/28/25 [facility] [place] 05-23-2025 [facility] Telephone (PANECO) CARL GROSS ([id number]) 1985 M Date Time Provider Department 05/23/25 CHARLETTE STEEN During your visit today, we recorded the following information about you: Charlette Steen PA-C 05/23/2025 4:01 PM Signed Teddy, Patient was scheduled for virtual PACC appt at 3:10 PM today. Patient did not check in for visit. Called patient at 3:20 PM to see if they needed any assistance logging in and left voicemail. He later called back and said he got caught up at work and would need to reschedule. This message routed to PACC schedulers to contact patient to reschedule PACC appt. DOS: 06/06/2025 Thank you, Charlette Steen PA-C PACC Allergies As of Date: 05/23/2025 Noted Allergy Reaction BEE STING 09/22/2012 7 - Swelling Comments: Local swelling and shortness of breath DERMABOND (2-OCTYL CYANOACRYLATE) 12/01/2020 2 - Rash Date Reviewed: 04/24/2025 Reviewed by: Tuan Puentes APRN.LADLE FILLER - Fully Assessed Reason for Visit: No Show [1558] Prescriptions as of 05/23/2025 - furosemide (LASIX) 20 mg tablet TAKE 1 TABLET BY MOUTH ONCE DAILY NEEDED FOR LEG EDEMA. - dupilumab (DUPIXENT PEN) 300 mg/2 mL pen injection Inject 300 mg subcutaneously one time a week. For eosinophilic esophagitis; ICD10 = K20.0 - traZODone (DESYREL) 100 mg tablet TAKE 1 TO 2 TABLETS BY MOUTH ONCE DAILY AT BEDTIME - celecoxib (CELEBREX) 100 mg capsule Take 1 capsule by mouth two times a day. As needed for joint pain, take with food - sertraline (ZOLOFT) 100 mg tablet Take 1 tablet by mouth once daily. - allopurinol (ZYLOPRIM) 100 mg tablet Take 1 tablet by mouth once daily. For gout. - EPINEPHrine (EPIPEN) 0.3 mg/0.3 mL auto-injector [...] (FLONASE) 50 mcg/actuation nasal spray Use 1 [place] in each nostril daily at bedtime. - montelukast (SINGULAIR) 10 mg tablet Take 1 tablet by mouth daily at bedtime. - amino acids (BCAA ORAL) Take by mouth once daily. - cetirizine (ZYRTEC) 10 mg tablet Take 10 mg by mouth once daily. Problem List As Of Date 05/23/2025 Noted Resolved Palpitations [R00.2] Well adult exam [...] stools [R19.5] 07/25/2024 Situational depression [F43.21] 07/25/2024 Internal hemorrhoids [K64.8] 01/10/2025 Encounter Status:Closed by CHARLETTE STEEN on 05/23/[address] [facility] Extremity Lower without Cont raon 05-11-2025 Extremity Lower without Contra [facility] [address] [place], [place] [address] Extremity Lower without Contra MR#: [id number] Acct: [id number] Name: CARL GROSS GENE Rep #: [id number] : 1985 M 40 From: Kj Goddard MD PCP: Dr. Simba Horton DO Status: REG CLI Study: Extremity Lower without Contra Date of Exam: 0 05/11/25 Exam# [id number] Ordering Dr: Cheryl Kimbrough DPM PROCEDURE: EXTREMITY LOWER WITHOUT CONTRA 05/11/2025 REASON FOR EXAM: L FOOT PAIN Foot pain TECHNIQUE: Procedure Code: CTELWO Modality: CT Procedure: EXTREMITY LOWER WITHOUT CONTRA Coronal and Sagittal reconstruction series were provided. CONTRAST: None One or more dose reduction techniques were used (e.g., Automated exposure control, adjustment of the mA and/or kV according to patient size, use of iterative reconstruction technique). RADIATION DOSE SUMMARY: CTDlvol: 15.4 mGy DLP: 522.6 mGycm COMPARISON: None FINDINGS: Bones: Mild spurring of the calcaneus. Distal tibia and fibula negative. Hindfoot negative. No fractures. Tarsals negative. Metatarsals and phalanges negative. Joints: Degenerative changes of the 1st metatarsophalangeal joint. Soft Tissues: Soft tissues negative. No radiopaque foreign body. CT/Extremity Lower without Contra IMPRESSION: Negative for acute abnormality of the left foot. No evidence of fracture. Reading Location: [id number] CC: MAGALIE Kimbrough; Dr. Simba Horton DO Anatomic Pathology Manager: Signed Normal [facility] CNOVon 04-24-2025 CNOV Office Visit (FAMPWS ) GINNYCARL G ([id number]) 1985 M Date Time Provider Department 04/24/25 2:00 PM [facility] During your visit today, we recorded the following information about you: Temperature Pulse Blood pressure Weight 98.5 degrees 89/minute 118/84 111.2 kg Tuan Puentes APRN.LADLE FILLER 04/24/2025 2:15 PM Signed 04/24/2025 Recording using Arrayent software for draft documentation of the visit was discussed with the patient/authorized installation service representative; all questions welcomed and answered. 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 montelukast [...] as em (more content not included)... Normal [facility] Calculated very low density lipoprotein (VLDL) cholesterol measurementOrdered By: HEALTH ASSESSMENT on 04-04-2025 Calculated very low density lipoprotein (VLDL) cholesterol measurement 20 mg/dL 5-40 [facility] Glucoseon 04-04-2025 Glucose [Mass/Vol] 94 mg/dL Normal 70-99 [facility] Comment on above: Performed By: #### L 500.4100, L501.0100 ####[facility] [address] [place], [address] LDL calc ser/plasOrdered By: HEALTH ASSESSMENT on 04-04-2025 Cholesterol in LDL [Mass/Vol] 83 mg/dL [facility] Comment on above: Gzkiuduafi=861-638 m g/dL & Higher Xpuj=484 mg/dL or greaterFriedwald Equation for LDL-C Lipid Profileon 04-04-2025 CHOL:HDL 3.36 Normal [facility] Comment on above: Performed By: #### L 500.4100, L501.0100 ####[facility] [address] [place], [address] Cholesterol [Mass/Vol] 146 mg/dL Normal <=200 [facility] Comment on above: Result Comment: Chol esterol level, Desirable <200 mg/dL Borderline high cholesterol 200-239 mg/dL High cholesterol >=240 mg/dL Recommendations of the NCEP Adult Treatment Panel for the following risk-cutoff thresholds for the [place] population. Performed By: #### L 500.4100, L501.0100 ####[facility] [address] [place], [address] Cholesterol in HDL [Mass/Vol] 43 mg/dL Normal [facility] Comment on above: Result Comment: Collette onal Cholesterol Education Program (NCEP) guidelines: <40 mg/dL: Low HDL-cholesterol (major risk factor for CHD) >= 60 mg/dL: High HDL-cholesterol (negative risk factor for CHD) HDL-cholesterol is affected by a number of factors, e.g. smoking, exercise, hormones, sex and age. Performed By: #### L 500.4100, L501.0100 ####[facility] [address] [place], [address] Cholesterol in LDL [Mass/Vol] 83 mg/dL Normal [facility] Comment on above: Result Comment: Bord okmjmj=054-174 mg/dL Higher Xabj=281 mg/dL or greater Friedwald Equation for LDL-C Performed By: #### L 500.4100, L501.0100 ####[facility] [address] [place], [address] Cholesterol in VLDL [Mass/Vol] 20 mg/dL Normal 5-40 [facility] Comment on above: Performed By: #### L 500.4100, L501.0100 ####[facility] [address] [place], [address] Triglyceride [Mass/Vol] 99 mg/dL Normal [facility] Comment on above: Result Comment: The drugs N-Acetylcysteine and Metamizole may falsely depress this assay. Normal range: <150 mg/dL Borderline High: 150-199 mg/dL High: 200-499 mg/dL Very High: >500 mg/dL Performed By: #### L 500.4100, L501.0100 ####[facility] [address] [place], [address] CHOL Normal <=200 [facility] Comment on above: Result Comment: DUPL ICATE Performed By: #### L 500.4100 #### [facility] Laboratory [address] [place], [address] CHOL:HDL Normal [facility] Comment on above: Result Comment: DUPL ICATE Performed By: #### L 500.4100 #### [facility] [address] [place], [address] CLDL Normal [facility] Comment on above: Result Comment: DUPL ICATE Performed By: #### L 500.4100 #### [facility] [address] [place], [address] HDL Normal [facility] Comment on above: Result Comment: DUPL ICATE Performed By: #### L 500.4100 #### [facility] [address] [place], [address] TRIG Normal [facility] Comment on above: Result Comment: DUPL ICATE Performed By: #### L 500.4100 #### [facility] [address] [place], [address] VLDL Normal 5-40 [facility] Comment on above: Result Comment: DUPL ICATE Performed By: #### L 500.4100 #### [facility] [address] [place], [address] Screening total cholesterol/ high density lipoprotein (HDL) cholesterol ratioOrdered By: HEALTH ASSESSMENT on 04-04-2025 Cholesterol.total/Cho lesterol in HDL [Mass ratio] 3.36 {ratio} [facility] Serum glucose measurement (m ass/volume)Ordered By: HEALTH ASSESSMENT on 04-04-2025 Glucose [Mass/Vol] 94 mg/dL 70-99 [facility] Serum or plasma cholesterol in HDL measurement (mass/volume)Ordered By: HEALTH ASSESSMENT on 04-04-2025 Cholesterol in HDL [Mass/Vol] 43 mg/dL >40 [facility] Comment on above: National Cholesterol Education Program (NCEP) guidelines:<40 mg/dL: Low HDL-cholesterol (major risk factor for CHD)>= 60 mg/dL: High HDL-cholesterol (negative risk factor for CHD)HDL-cholesterol is affected by a number of factors, e.g. smoking, exercise, hormones, sex and age. Serum or plasma cholesterol measurement (mass/volume)Ordered By: HEALTH ASSESSMENT on 04-04-2025 Cholesterol [Mass/Vol] 146 mg/dL <201 [facility] Comment on above: Cholesterol level, D esirable <200 mg/dLBorderline high cholesterol 200-239 mg/dLHigh cholesterol >=240 mg/dLRecommendations of the NCEP Adult Treatment Panel for the following risk-cutoff thresholds for the [place] population. Triglycerides measurementOrd ered By: HEALTH ASSESSMENT on 04-04-2025 Triglyceride [Mass/Vol] 99 mg/dL <199 [facility] Comment on above: The drugs N-Acetylcy steine and Metamizole may falsely depress this assay. Normal range: <150 mg/dLBorderline High: 150-199 mg/dLHigh: 200-499 mg/dLVery High: >500 mg/dL ANES POSTPROC EVALon 025 ANES POSTPROC EVAL HNO ID: [id number] Author: SYLVIA SMITH MD Service: ? Author [...] January 28, 2025 TIME: 3:59 PM CSN: [id number] Normal [facility] ANES PRE-OPon 01-28-2025 ANES PRE-OP HNO ID: [id number] Author: SYLVIA SMITH MD Service: ? Author Type: Anesthesiologist Type: Anesthesia Preprocedure Evaluation Filed: 01/28/2025 14:42 Note Text: ANESTHESIOLOGY DAY OF SURGERY NOTE : 1985 Procedure Information Date/Time: 01/28/25 1600 Scheduled providers: Kenisha Newby MD; Sylvia Smith MD; Isabella Esparza APRN.LOCAL SALES ASSOCIATE Procedure: EGD - THERAPEUTIC, EUS, OR TUBE [...] and consent discussed: yes. Patient / Responsible Alliance Party agrees to proceed: yes Patient / [...] (FLONASE) 50 mcg/actuation nasal spray Use 1 [place] in each nostril daily at bedtime. montelukast [...] January 28, 2025 TIME: 2:42 PM CSN: [id number] Normal [facility] EGD Study observation Narrat iveon 01-28-2025 [facility] Radiology Study observation (narrative) [facility] HISTORY PHYSICALon HISTORY PHYSICAL HNO ID: [id number] Author: TOM RUDD MD Service: Gastroenterology Author [...] knee- meniscus repair SINUS SURGERY HX 2016 Prior to Admission medications as of 12/07/24 [...] (FLONASE) 50 mcg/actuation nasal spray Use 1 [place] in each nostril daily at bedtime. montelukast [...] January 28, 2025 TIME: 2:08 PM [address] [facility] NURSING PROGon 01-28-2025 NURSING PROG HNO ID: [id number] Author: CARRILLO DELGADO RN Service: Gastroenterology Author Type: Registered Nurse Type: Nursing Progress Note Filed: 01/28/2025 15:32 Note Text: AMBULATORY PATIENT EDUCATION NOTE TOPIC: GI PROCEDURES: Esophagogastroduodenoscopy( EGD) with or without biopies based on clinical [...] Electronically Signed By: Carrillo Delgado RN Normal [facility] NURSING PROG HNO ID: [id number] Author: YANET BUCHANAN RN Service: ? Author Type: Registered Nurse [...] LIMITATIONS AFFECTING LEARNING: None Electronically Signed By: Holt Skully, RN In Department: GASTROENTEROLOGY Normal [facility] Olimpia 01-08-2025 CNPN Telephone (FAMPWS) CARL GROSS ([id number]) 1985 M Date Time Provider Department 01/08/25 [facility] During your visit today, we recorded the following information about you: Magnolia Arreguin MA 01/08/2025 2:43 PM Signed Please see pt message --- Looks like [facility] does the test. It?s called a De La Fuente Reflux Capsule test which they attach a sensor to the lower esophagus then will transmit info to a reader. It involves a endoscopy to put in. Simba Horton DO 01/08/2025 4:38 PM Signed I am unsure who does this procedure at [facility]. Unsure if Gastro DrYung Friend or Gen surgeon Please call [facility] to clarify DO Suzy Novoa Jazzmin, MA 01/09/2025 10:39 AM Signed Attempted to contact [facility] gastro with no answer. Will try again. PAM Rodrigues Jazz[place], MA 01/14/2025 3:[address] [facility] does De La Fuente capsule test. PAM Rodrigues Susan LPN 01/16/2025 3:09 PM Signed [facility] Should I call or do I need a referral?? I think we should try celebrix. I?m not noticing any difference with meloxicam. Magnolia Arreguin MA 01/17/2025 3:30 PM Signed Hi. I had sent Dr. Horton a message about a test that needs done at the [facility] but not sure if I need to call or if a referral is needed. The meloxicam isn?t working and she mentioned celebrix. Simba Horton DO 01/18/2025 12:20 PM Signed I can't do the De La Fuente testing. He would have to see a provider such as a gastro or gen surgeon through [facility] to have it ordered Okay to [...] (FLONASE) 50 mcg/actuation nasal spray Use 1 [place] in each nostril daily at bedtime. - [...] pain with (more content not included)... Normal [facility] CNOVon 01-07-2025 CNOV Office Visit (FAMPWS ) CARL GROSS ([id number]) 1985 M Date Time Provider Department 01/07/25 3:00 PM [facility] During your visit today, we recorded the following information about you: Temperature Pulse Respiration Blood pressure 97.1 degrees 64/minute 20/minute 130/80 Weight 115.7 kg Simba Horton, 01/10/2025 12:54 PM Signed CC: Carl Gross [...] to fuse 1st MTP by Dr. 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 montelukast (SINGULAIR) 10 mg tablet Take 1 tablet by mouth daily at bedtime. amino acids (BCAA ORAL) Take by rosalio (more content not included)... Normal [facility] 12-21-2024 [facility] CARL GROSS ([id number]) 1985 Date Time Provider Department 12/21/24 [facility] During your visit today, we recorded the following information about you: Rosangela Loyd MA 12/21/2024 4:11 PM Signed Pt sends [employer] message below: [facility] The naproxen [...] (FLONASE) 50 mcg/actuation nasal spray Use 1 [place] in each nostril daily at bedtime. - [...] 1 ta (more content not included)... Normal [facility] CARL GROSS ([id number]) 1985 Date Time Provider Department 12/10/[address] [facility] During your visit today, we recorded the following information about you: Rosangela Loyd MA 12/10/2024 6:42 PM Signed Pt sends [employer] message regarding his recent labs. Sebas Lawrence reviewed these results but would like provider to review. Carl Gross [facility] My Chart Rx Pool I?m a little concerned about some of my recent lab results. What do you think, nothing to worry about? I didn?t have any of these issues with my past 2 knee surgeries so I am concerned as to why I?m having issues this time?? Thanks Tuan Rivera APRN.KVNG 12/14/2024 2:35 PM Signed Overall his labs look good. Slightly elevated WBC count but this was likely d/t the fact that he was sick/had an infection when this was drawn. We can redraw again in a month. No concerns. Tuan Puentes APRN.KVNG Arreguin [facility] 12/14/2024 2:53 PM Signed Pt informed via message Magnolia Arreguin [facility] Allergies As of Date: 12/10/2024 Noted Allergy Reaction BEE STING 09/22/2012 7 - Swelling Comments: Local swelling and shortness of breath DERMABOND (2-OCTYL CYANOACRYLATE) 12/01/2020 2 - Rash Date Reviewed: 12/07/2024 Reviewed by: Rosangela Loyd MA - Fully Assessed Reason for Visit: question regarding lab results [Other] Primary Visit Diagnosis:Leukocytosis, unspecified type [D72.829] Order(s):COMPLETE BLOOD COUNT AND DIFFERENTIAL [SQCBCDIF] Order #: [id number] FUTURE Prescriptions as of 12/14/2024 - ALPRAZolam [...] (FLONASE) 50 mcg/actuation nasal spray Use 1 [place] in each nostril daily at bedtime. - [...] Status:Closed by MAGNOLIA ARREGUIN on 12/14/[address] [facility] CBC W Auto Differential pane l (Bld)on 12-07-2024 Basophils (Bld) [#/Vol] 0.05 10*3/uL Normal <0.[address] [facility] Comment on above: Order Comment: Speci men Type: BLOOD SPECIMENOrdering Facility: [facility] Address: [address] [place] [address] Performed By: #### 5 7021-8 ####[facility] LABIA [id number] [place] [address] [place] Basophils/100 WBC (Bld) 0.4 % Normal [facility] Comment on above: Order Comment: Speci men Type: BLOOD SPECIMENOrdering Facility: [facility] Address: [address] [place] [address] Performed By: #### 5 7021-8 ####[facility] LABCLIA [id number] [place] [address] [place] Differential cell count method Nom (Bld) Auto Normal [facility] Comment on above: Order Comment: Speci men Type: BLOOD SPECIMENOrdering Facility: [facility] Address: [address] [place] [address] Performed By: #### 5 7021-8 ####[facility] LABCLIA [id number] [address] [place] [address] [place] Eosinophils (Bld) [#/Vol] 0.12 10*3/uL Normal <0.[address] [facility] Comment on above: Order Comment: Speci men Type: BLOOD SPECIMENOrdering Facility: [facility] Address: [address] [place] [address] Performed By: #### 5 7021-8 ####[facility] LABCLIA [id number] [address], [place] [address] [place] Eosinophils/100 WBC (Bld) 1.0 % Normal [facility] Comment on above: Order Comment: Speci men Type: BLOOD SPECIMENOrdering Facility: [facility] Address: [address] [place] [address] Performed By: #### 5 7021-8 ####[facility]IA [id number] [address], [place] [address] [place] Erythrocyte distribution width (RBC) [Ratio] 11.9 % Normal 11.5-15.[address] [facility] Comment on above: Order Comment: Speci men Type: BLOOD SPECIMENOrdering Facility: [facility] Address: [address] [place] [address] Performed By: #### 5 7021-8 ####[facility] LABCLIA [id number] [address], [place] [address] [place] Hematocrit (Bld) [Volume fraction] 49.5 % Normal 39.0-51.[address] [facility] Comment on above: Order Comment: Speci men Type: BLOOD SPECIMENOrdering Facility: [facility] Address: [address] [place] [address] Performed By: #### 5 7021-8 ####[facility] LABCLIA [id number] [address] [place] [address] [place] Hemoglobin (Bld) [Mass/Vol] 16.1 g/dL Normal 13.0-17.[address] [facility] Comment on above: Order Comment: Speci men Type: BLOOD SPECIMENOrdering Facility: [facility] Address: [address] [place] [address] Performed By: #### 5 7021-8 ####[facility] LABCLIA [id number] [place] [address] [place] Immature granulocytes (Bld) [#/Vol] 0.06 10*3/uL Normal <0.[address] [facility] Comment on above: Order Comment: Speci men Type: BLOOD SPECIMENOrdering Facility: [facility] Address: [address] [place] [address] Performed By: #### 5 7021-8 ####[facility] LABCLIA [id number] [place] [address] [place] Immature granulocytes/100 WBC (Bld) 0.5 % Normal [facility] Comment on above: Order Comment: Speci men Type: BLOOD SPECIMENOrdering Facility: [facility] Address: [address] [place] [address] Performed By: #### 5 7021-8 ####[facility] LABCLIA [id number] [place] [address] [place] Lymphocytes (Bld) [#/Vol] 2.37 10*3/uL Normal 1.00-4.[address] [facility] Comment on above: Order Comment: Speci men Type: BLOOD SPECIMENOrdering Facility: [facility] Address: [address] [place] [address] Performed By: #### 5 7021-8 ####[facility] LABCLIA [id number] [place] [address] [place] Lymphocytes/100 WBC (Bld) 19.0 % Normal [facility] Comment on above: Order Comment: Speci men Type: BLOOD SPECIMENOrdering Facility: [facility] Address: [address] [place] [address] Performed By: #### 5 7021-8 ####[facility] LABIA [id number] [place] [address] [place] MCH (RBC) [Entitic mass] 28.8 pg Normal 26.0-34.[address] [facility] Comment on above: Order Comment: Speci men Type: BLOOD SPECIMENOrdering Facility: [facility] Address: [address] [place] [address] Performed By: #### 5 7021-8 ####[facility] LABIA [id number] [place] [address] [place] MCHC (RBC) [Mass/Vol] 32.5 g/dL Normal 30.5-36.0 [facility] Comment on above: Order Comment: Speci men Type: BLOOD SPECIMENOrdering Facility: [facility] Address: [address] [place] [address] Performed By: #### 5 7021-8 ####[facility] LABIA [id number] [place] [address] [place] MCV (RBC) [Entitic vol] 88.4 fL Normal 80.0-100.[address] [facility] Comment on above: Order Comment: Speci men Type: BLOOD SPECIMENOrdering Facility: [facility] Address: [address] [place] [address] Performed By: #### 5 7021-8 ####[facility] LABIA [id number] [place] [address] [place] Monocytes (Bld) [#/Vol] 0.98 10*3/uL High <0.[address] [facility] Comment on above: Order Comment: Speci men Type: BLOOD SPECIMENOrdering Facility: [facility] Address: [address] [place] [address] Performed By: #### 5 7021-8 ####[facility] LABIA [id number] [address] [address] [place] Monocytes/100 WBC (Bld) 7.9 % Normal [facility] Comment on above: Order Comment: Speci men Type: BLOOD SPECIMENOrdering Facility: [facility] Address: [address] [place] [address] Performed By: #### 5 7021-8 ####[facility] LABCLIA [id number] [facility] [place] [address] [place] Neutrophils (Bld) [#/Vol] 8.87 10*3/uL High 1.45-7.[address] [facility] Comment on above: Order Comment: Speci men Type: BLOOD SPECIMENOrdering Facility: [facility] Address: [address] [place] [address] Performed By: #### 5 7021-8 ####[facility] LABCLIA [id number] [place] [address] [place] Neutrophils/100 WBC (Bld) 71.2 % Normal [facility] Comment on above: Order Comment: Speci men Type: BLOOD SPECIMENOrdering Facility: [facility] Address: [address] [place] [address] Performed By: #### 5 7021-8 ####[facility] LABCLIA [id number] [place] [address] [place] Nucleated RBC (Bld) [#/Vol] 10*3/uL Normal <0.[address] [facility] Comment on above: Order Comment: Speci men Type: BLOOD SPECIMENOrdering Facility: [facility] Address: [address] [place] [address] Performed By: #### 5 7021-8 ####[facility] LABCLIA [id number] [place] [address] [place] Nucleated RBC/100 WBC (Bld) [Ratio] 0.0 /100 WBC Normal [facility] Comment on above: Order Comment: Speci men Type: BLOOD SPECIMENOrdering Facility: [facility] Address: [address] [place] [address] Performed By: #### 5 7021-8 ####[facility] LABCLIA [id number] [facility] [place] [address] [place] Platelet mean volume (Bld) [Entitic vol] 10.4 fL Normal 9.0-12.[address] [facility] Comment on above: Order Comment: Speci men Type: BLOOD SPECIMENOrdering Facility: [facility] Address: [address] [place] [address] Performed By: #### 5 7021-8 ####[facility] LABIA [id number] [place] [address] [place] Platelets (Bld) [#/Vol] 356 10*3/uL Normal 150-[address] [facility] Comment on above: Order Comment: Speci men Type: BLOOD SPECIMENOrdering Facility: [facility] Address: [address] [place] [address] Performed By: #### 5 7021-8 ####[facility] LABIA [id number] [place] [address] [place] RBC (Bld) [#/Vol] 5.60 10*6/uL Normal 4.20-6.00 [facility] Comment on above: Order Comment: Speci men Type: BLOOD SPECIMENOrdering Facility: [facility] Address: [address] [place] [address] Performed By: #### 5 7021-8 ####[facility] LABCLIA [id number] [place] [id number] [place] WBC (Bld) [#/Vol] 12.45 10*3/uL High 3.70-11.00 [facility] Comment on above: Order Comment: Speci men Type: BLOOD SPECIMENOrdering Facility: [facility] Address: [address] [place] [address] Performed By: #### 5 7021-8 ####[facility] LABCLIA [id number] [address] [address] [place] CNOVon 12-07-2024 CNOV Office Visit (INTMWS ) CARL GROSS ([id number]) 1985 M Date Time Provider Department 12/07/24 2:20 PM SEBAS LAWRENCE INTMWS During your visit today, we recorded the following information about you: Pulse Respiration Blood pressure Weight 78/minute 16/minute 136/74 110.9 kg Sebas Lawrence APRN.PHOTOGRAPHER LITHOGRAPHIC 12/07/2024 3:02 PM Signed Subjective Patient ID: [...] arthroscopic meniscus surgery on November 16 at [facility]. - Developed a bacterial infection at [...] feel improved or any concerns. Sebas Lawrence, PROMOTIONS ASSISTANT.PHOTOGRAPHER LITHOGRAPHIC Medical Decision Making: Problems: Low: Acute, uncomplicated illness (more content not included)... Normal [facility] Comprehensive metabolic 2000 panelon 12-07-2024 Albumin [Mass/Vol] 5.1 g/dL High 3.9-4.9 [facility] Comment on above: Order Comment: Priti holder Type: BLOOD SPECIMENOrdering Facility: [facility] Address: [address] [place] [address] Performed By: #### T [facility], 57757-4 ####[facility] LABCLIA [id number] [address] [address] [place] ALP [Catalytic activity/Vol] 73 U/L Normal 38-[address] [facility] Comment on above: Order Comment: Priti holder Type: BLOOD SPECIMENOrdering Facility: [facility] Address: [address] [place] [address] Performed By: #### T [facility], 80[address]-5 ####[facility] LABCLIA [id number] [address] [address] [place] ALT [Catalytic activity/Vol] 35 U/L Normal 10-[address] [facility] Comment on above: Order Comment: Priti holder Type: BLOOD SPECIMENOrdering Facility: [facility] Address: [address] [place] [address] Performed By: #### T [facility], 62539-3 ####[facility] LABCLIA [id number] [address] [address] [place] Anion gap [Moles/Vol] 15 mmol/L Normal 8-15 [facility] Comment on above: Order Comment: Speci men Type: BLOOD SPECIMENOrdering Facility: [facility] Address: [address] [place] [address] Performed By: #### T YHOAN, 96034-5 ####[facility] LABCLIA [id number] [place] [id number] [place] AST [Catalytic activity/Vol] 26 U/L Normal 14-[address] [facility] Comment on above: Order Comment: Speci men Type: BLOOD SPECIMENOrdering Facility: [facility] Address: [address] [place] [address] Performed By: #### T YOHAN, 17897-2 ####[facility] LABCLIA [id number] [place] [address] [place] Bilirubin [Mass/Vol] 0.7 mg/dL Normal 0.2-1.3 [facility] Comment on above: Order Comment: Speci men Type: BLOOD SPECIMENOrdering Facility: [facility] Address: [address] [place] [address] Performed By: #### T YOHAN, 47967-6 ####[facility] LABCLIA [id number] [place] [id number] [place] Calcium [Mass/Vol] 10.2 mg/dL Normal 8.5-10.2 [facility] Comment on above: Order Comment: Speci men Type: BLOOD SPECIMENOrdering Facility: [facility] Address: [address] [place] [address] Performed By: #### T YOHAN, 94503-9 ####[facility] LABCLIA [id number] [place] [id number] [place] Chloride [Moles/Vol] 103 mmol/L Normal 98-107 [facility] Comment on above: Order Comment: Speci men Type: BLOOD SPECIMENOrdering Facility: [facility] Address: [address] [place] [address] Performed By: #### T [facility], 16313-4 ####[facility] LABIA [id number] [place] [id number] [place] CO2 [Moles/Vol] 24 mmol/L Normal 22-[address] [facility] Comment on above: Order Comment: Speci men Type: BLOOD SPECIMENOrdering Facility: [facility] Address: [address] [place] [address] Performed By: #### T [facility], 71632-3 ####[facility] LABIA [id number] [place] [address] [place] Creatinine [Mass/Vol] 1.01 mg/dL Normal 0.73-1.22 [facility] Comment on above: Order Comment: Speci men Type: BLOOD SPECIMENOrdering Facility: [facility] Address: [address] [place] [address] Performed By: #### T [facility], 43401-4 ####[facility] [id number] [address] [place] Creatinine and Glomerular filtration rate.predicted panel (S/P/Bld) 96 mL/min/1.73m??? Normal >=[address] [facility] Comment on above: Order Comment: Speci men Type: BLOOD SPECIMENOrdering Facility: [facility] Address: [address] [place] [address] Result Comment: Nandini mated Glomerular Filtration Rate [...] accurately reflect actual GFR. Performed By: #### T [facility], 31760-1 ####[facility] LABIA [id number] [place] [address] [place] Glucose [Mass/Vol] 71 mg/dL Low 74-99 [facility] Comment on above: Order Comment: Speci men Type: BLOOD SPECIMENOrdering Facility: [facility] Address: [address] [place] [address] Result Comment: The [place] Diabetes Association (ADA) provides guidance for cutoff [...] Standards of Medical Care in Diabetes 2016, [place] [employer]. Diabetes Care. 2016.39(Suppl 1). Performed By: #### T [facility], 89939-6 ####[facility] LABCLIA [id number] [place] [address] [place] Potassium [Moles/Vol] 3.8 mmol/L Normal 3.7-5.1 [facility] Comment on above: Order Comment: Speci men Type: BLOOD SPECIMENOrdering Facility: [facility] Address: [address] [place] [address] Performed By: #### T [facility], 43474-9 ####[facility] LABCLIA [id number] [place] [address] [place] Protein [Mass/Vol] 7.8 g/dL Normal 6.3-8.0 [facility] Comment on above: Order Comment: Speci men Type: BLOOD SPECIMENOrdering Facility: [facility] Address: [address] [place] [address] Performed By: #### T [facility], 48802-0 ####[facility] LABCLIA [id number] [place] [address] [place] Sodium [Moles/Vol] 142 mmol/L Normal 136-144 [facility] Comment on above: Order Comment: Speci men Type: BLOOD SPECIMENOrdering Facility: [facility] Address: [address] [place] [address] Performed By: #### T KECIA, 07745-2 ####[facility] LABCLIA [id number] [place] [address] [place] Urea nitrogen [Mass/Vol] 13 mg/dL Normal 9-[address] [facility] Comment on above: Order Comment: Speci men Type: BLOOD SPECIMENOrdering Facility: [facility] Address: [address] [place] [address] Performed By: #### T KECIA, 85877-4 ####[facility] LABCLIA [id number] [place] [id number] [place] TSH W/REFLEX FT4on 5 TSH Qn 0.951 m[IU]/L Normal 0.270-4.[address] [facility] Comment on above: Order Comment: Speci men Type: BLOOD SPECIMENOrdering Facility: [facility] Address: [address] [place] [address] Performed By: #### T [facility], 30773-6 ####[facility] LABCLIA [id number] [place] [address] [place] Absolute neutrophil countOrd ered By: Shiv Garcia on 11-27-2024 Neutrophils (Bld) [#/Vol] 7.1 10*3/uL 2.0-7.7 [facility] Anion gap in Serum or Plasma Ordered By: Shiv Garcia on 11-27-2024 Anion gap [Moles/Vol] 13 mmol/L 5-15 [facility] BUN/creatinine ratioOrdered By: Shiv Garcia on 11-27-2024 Urea nitrogen/Creatinine [Mass ratio] 15.2 mg/mg 10-20 [facility] Basophil percentageOrdered B y: Shiv Garcia on 11-27-2024 Basophils/100 WBC (Bld) 0.6 % 0-1 [facility] Bilirubin, totalOrdered By: Shiv Garcia on 11-27-2024 Bilirubin [Mass/Vol] 0.60 mg/dL 0.00-1.30 [facility] CBC W/Diff, Automatedon 04- Absolute Lymph 1.64 X10 3/uL Normal 0.83-4.51 [facility] Comment on above: Performed By: #### L 500.4050, L100.0100 #### [facility] [address] [place], [address] Absolute Neut 7.1 X10 3/uL Normal 2.0-7.7 [facility] Comment on above: Performed By: #### L 500.4050, L100.0100 #### [facility] [address] [place], [address] Basophils/100 WBC (Bld) 0.6 % Normal 0-1 [facility] Comment on above: Performed By: #### L 500.4050, L100.0100 #### [facility] [address] [place], [address] Eosinophils/100 WBC (Bld) 1.9 % Normal 0-5 [facility] Comment on above: Performed By: #### L 500.4050, L100.0100 #### [facility] [address] [place], [address] Erythrocyte distribution width (RBC) [Ratio] 11.7 % Normal 11.6-14.6 [facility] Comment on above: Performed By: #### L 500.4050, L100.0100 #### [facility] [address] [place], [address] Hematocrit (Bld) [Volume fraction] 43.7 % Normal 40-54 [facility] Comment on above: Performed By: #### L 500.4050, L100.0100 #### [facility] [address] [place], [address] Hemoglobin (Bld) [Mass/Vol] 15.1 g/dL Normal 13.0-16.5 [facility] Comment on above: Performed By: #### L 500.4050, L100.0100 #### [facility] [address] [place], [address] IG% 0.500 Normal 0.0-0.9 [facility] Comment on above: Result Comment: IG% - Immature Granulocytes (promyelocytes, myelocytes and metamyelocytes) > 1% indicates that a LEFT SHIFT is Present. Performed By: #### L 500.4050, L100.0100 #### [facility] [address] [place], [address] Lymphocytes/100 WBC (Bld) 16.8 % Low 19-41 [facility] Comment on above: Performed By: #### L 500.4050, L100.0100 #### [facility] [address] [place], [address] MCH (RBC) [Entitic mass] 29.5 pg Normal 27.0-32.0 [facility] Comment on above: Performed By: #### L 500.4050, L100.0100 #### [facility] [address] [place], [address] MCHC (RBC) [Mass/Vol] 34.6 g/dL Normal 32-36 [facility] Comment on above: Performed By: #### L 500.4050, L100.0100 #### [facility] [address] [place], [address] MCV (RBC) [Entitic vol] 85.4 fL Normal 80-94 [facility] Comment on above: Performed By: #### L 500.4050, L100.0100 #### [facility] [address] [place], [address] Monocytes/100 WBC (Bld) 7.6 % Normal 0-10 [facility] Comment on above: Performed By: #### L 500.4050, L100.0100 #### [facility] [address] [place], [address] Neutrophils/100 WBC (Bld) 72.6 % High 47-70 [facility] Comment on above: Performed By: #### L 500.4050, L100.0100 #### [facility] [address] [place], [address] Nucleated RBC (Bld) [#/Vol] 0 10*3/uL Normal 0-5 [facility] Comment on above: Performed By: #### L 500.4050, L100.0100 #### [facility] [address] [place], [address] Platelet mean volume (Bld) [Entitic vol] 9.7 fL Normal 6.2-12.0 [facility] Comment on above: Performed By: #### L 500.4050, L100.0100 #### [facility] [address] [place], [address] Platelets (Bld) [#/Vol] 228 10*3/uL Normal 150-450 [facility] Comment on above: Performed By: #### L 500.4050, L100.0100 #### [facility] [address] [place], [address] RBC (Bld) [#/Vol] 5.12 10*6/uL Normal 4.6-6.2 [facility] Comment on above: Performed By: #### L 500.4050, L100.0100 #### [facility] [address] [place], [address] RDW SD 36.1 fl Normal 35.1-43.9 [facility] Comment on above: Performed By: #### L 500.4050, L100.0100 #### [facility] [address] [place], [address] WBC (Bld) [#/Vol] 9.8 10*3/uL Normal 4.4-11.0 [facility] Comment on above: Performed By: #### L 500.4050, L100.0100 #### [facility] [address] [place], [address] Carbon dioxide, total [Moles /volume] in Central venous bloodOrdered By: Shiv Garcia on 11-27-2024 CO2 [Moles/Vol] 22.5 mmol/L 21.0-32.0 [facility] Chloride assayOrdered By: Ese Garcia on 11-27-2024 Chloride [Moles/Vol] 103 mmol/L 98-108 [facility] Comprehensive Metabolic Prof ilon 11-27-2024 Albumin [Mass/Vol] 4.7 g/dL Normal 3.5-5.0 [facility] Comment on above: Performed By: #### L 500.4050, L100.0100 #### [facility] [address] [place], [address] Albumin/Globulin [Mass ratio] 1.8 {ratio} Normal 0.9-2.4 [facility] Comment on above: Performed By: #### L 500.4050, L100.0100 #### [facility] [address] [place], [address] ALK PHOS 66 U/L Normal 40-129 [facility] Comment on above: Performed By: #### L 500.4050, L100.0100 #### [facility] [address] [place], [address] ALT [Catalytic activity/Vol] 34 U/L Normal <=46 [facility] Comment on above: Performed By: #### L 500.4050, L100.0100 #### [facility] [address] [place], [address] AST [Catalytic activity/Vol] 25 U/L Normal <=37 [facility] Comment on above: Performed By: #### L 500.4050, L100.0100 #### [facility] [address] [place], [address] Bilirubin [Mass/Vol] 0.60 mg/dL Normal 0.00-1.30 [facility] Comment on above: Performed By: #### L 500.4050, L100.0100 #### [facility] [address] [place], [address] BUN/CRE 15.2 RATIO Normal 10-20 [facility] Comment on above: Performed By: #### L 500.4050, L100.0100 #### [facility] [address] [place], [address] Calcium [Mass/Vol] 9.5 mg/dL Normal 7.6-11.0 [facility] Comment on above: Performed By: #### L 500.4050, L100.0100 #### [facility] [address] [place], [address] Chloride [Moles/Vol] 103 mmol/L Normal 98-108 [facility] Comment on above: Performed By: #### L 500.4050, L100.0100 #### [facility] [address] [place], [address] CO2 [Moles/Vol] 22.5 mmol/L Normal 21.0-32.0 [facility] Comment on above: Performed By: #### L 500.4050, L100.0100 #### [facility] [address] [place], [address] Creatinine [Mass/Vol] 0.93 mg/dL Normal 0.70-1.20 [facility] Comment on above: Performed By: #### L 500.4050, L100.0100 #### [facility] [address] [place], [address] ECRCL 137.75 ml/min Normal 50-250 [facility] Comment on above: Performed By: #### L 500.4050, L100.0100 #### [facility] [address] [place], [address] GAP 13 Normal 5-15 [facility] Comment on above: Performed By: #### L 500.4050, L100.0100 #### [facility] [address] [place], [address] GFR/1.73 sq M.predicted among non-blacks MDRD (S/P/Bld) [Vol rate/Area] 106 mL/min/{1.73_m2} Normal >60 [facility] Comment on above: Result Comment: mL/m in/1.73m2 CKD-EPI Creatinine Equation (2020) Performed By: #### L 500.4050, L100.0100 #### [facility] [address] [place], [address] Globulin (S) [Mass/Vol] 2.6 g/dL Normal 2.2-4.2 [facility] Comment on above: Performed By: #### L 500.4050, L100.0100 #### [facility] [address] [place], [address] Glucose [Mass/Vol] 86 mg/dL Normal 70-99 [facility] Comment on above: Performed By: #### L 500.4050, L100.0100 #### [facility] [address] [place], [address] Potassium [Moles/Vol] 3.8 mmol/L Normal 3.3-5.1 [facility] Comment on above: Performed By: #### L 500.4050, L100.0100 #### [facility] [address] [place], [address] Sodium [Moles/Vol] 138 mmol/L Normal 133-145 [facility] Comment on above: Performed By: #### L 500.4050, L100.0100 #### [facility] [address] [place], [address] T PROT 7.3 g/dL Normal 5.9-8.4 [facility] Comment on above: Performed By: #### L 500.4050, L100.0100 #### [facility] [address] [place], [address] Urea nitrogen [Mass/Vol] 14 mg/dL Normal 4-19 [facility] Comment on above: Performed By: #### L 500.4050, L100.0100 #### [facility] [address] [place], [address] Emergency Department Summary on 11-27-2024 Emergency Department Summary [facility] [address] [place] [address] Emergency Department Summary 11/27/24 MR#: [id number] Acct: [id number] Name: CARL GROSS GENE Rep #: [id number] : 1985 39 From: Shiv Garcia MD PCP: Dr. Simba Horton, DO Status:REG ER Location: ED HPI History of Present Illness Chief Complaint: General Illness Narrative Narrative: 39-year-old male past medical history of previous knee problems states that he had surgery performed by Dr. Lopez at the [facility] on 16 November, approximately 10 days [...] may have an infection in his knee. [facility] Medical History Tear of meniscus [...] the patient with Dr. Lopez at the [facility], who states that he had called [...] [facility] Eosinophil percentageOrdered By: Shiv Garcia on 11-27-2024 Eosinophils/100 WBC (Bld) 1.9 % 0-5 [facility] Erythrocyte distribution wid th ratioOrdered By: Shiv Garcia on 11-27-2024 Erythrocyte distribution width (RBC) [Ratio] 11.7 % 11.6-14.6 [facility] Erythrocyte distribution wid th standard deviationOrdered By: Shiv Garcia on 11-27-2024 Erythrocyte distribution width (RBC) [Entitic vol] 36.1 fL 35.1-43.9 [facility] Estimation of creatinine carmen aranceOrdered By: Shiv Garcia on 11-27-2024 Estimated Creatinine Clearance Calc 137.75 ml/min 50-250 [facility] GFR/1.73 sq M.predicted joe g non-blacks MDRD (S/P/Bld) [Vol rate/Area]Ordered By: Shiv Garcia on 11-27-2024 Estimated GFR (MDRD) Non-Af Amer 106 >60 [facility] Comment on above: mL/min/1.73m2 CKD-EP I Creatinine Equation (2020) Hematocrit Auto (Bld) [Volum e fraction]Ordered By: Shiv Garcia on 11-27-2024 Hematocrit (Bld) [Volume fraction] 43.7 % 40-54 [facility] Hemoglobin measurementOrdere d By: Shiv Garcia on 11-27-2024 Hemoglobin (Bld) [Mass/Vol] 15.1 g/dL 13.0-16.5 [facility] Immature granulocytes/100 WB C Auto (Bld)Ordered By: Shiv Garcia on 11-27-2024 Immature granulocytes/100 WBC (Bld) 0.500 % 0.0-0.9 [facility] Comment on above: IG% - Immature Granu locytes (promyelocytes, myelocytes and metamyelocytes) > 1% indicates that a LEFT SHIFT is Present. Knee 4 or More Viewson 11-27 Knee 4 or More Views [facility] Imaging Services [address], [place] [address] Knee 4 or More Views MR#: [id number] Acct: [id number] Name: CARL GROSS GENE Rep #: [id number] : 1985 M 39 From: Radha Smith DO PCP: Dr. Simba Horton, DO Status: REG ER Study: Knee 4 or More Views Date of Exam: 11/27/24 Exam# [id number] Ordering Dr: Shiv Garcia MD PROCEDURE: KNEE [...] Shiv Garcia MD; Dr. Simba Horton DO Anatomic Pathology Manager: Signed Normal [facility] Laboratory - Chemistry and C hemistry - challengeOrdered By: Shiv Garcia on 11-27-2024 AST [Catalytic activity/Vol] 25 U/L <38 [facility] Lymphocytes Auto (Unsp spec) [#/Vol]Ordered By: Shiv Garcia on 11-27-2024 Lymphocytes (Bld) [#/Vol] 1.64 10*3/uL 0.83-4.51 [facility] Lymphocytes/100 WBC Auto (Un sp spec)Ordered By: Shiv Garcia on 11-27-2024 Lymphocytes/100 WBC (Bld) 16.8 % Low 19-41 [facility] MCV (mean corpuscular volume ) determinationOrdered By: Shiv Garcia on 11-27-2024 MCV (RBC) [Entitic vol] 85.4 fL 80-94 [facility] Mean corpuscular hemoglobin (MCH) determinationOrdered By: Shiv Garcia on 11-27-2024 MCH (RBC) [Entitic mass] 29.5 pg 27.0-32.0 [facility] Mean corpuscular hemoglobin concentration (MCHC) determinationOrdered By: Shiv Garcia on 11-27-2024 MCHC (RBC) [Mass/Vol] 34.6 g/dL 32-36 [facility] Mean platelet volume determi nationOrdered By: Shiv Garcia on 11-27-2024 Platelet mean volume (Bld) [Entitic vol] 9.7 fL 6.2-12.0 [facility] Monocyte percentageOrdered B y: Shiv Garcia on 11-27-2024 Monocytes/100 WBC (Bld) 7.6 % 0-10 [facility] Neutrophil percentageOrdered By: Shiv Garcia on 11-27-2024 Neutrophils/100 WBC (Bld) 72.6 % High 47-70 [facility] Nucleated red blood cell per centageOrdered By: Shiv Garcia on 11-27-2024 Nucleated RBC/100 WBC (Bld) [Ratio] 0 % 0-5 [facility] Platelet countOrdered By: Ese Garcia on 11-27-2024 Platelets (Bld) [#/Vol] 228 10*3/uL 150-450 [facility] Potassium (Unsp spec) [Mass/ Vol]Ordered By: Shiv Garcia on 11-27-2024 Potassium [Moles/Vol] 3.8 mmol/L 3.3-5.1 [facility] RBC Auto (Bld) [#/Vol]Ordere d By: Shiv Garcia on 11-27-2024 RBC (Bld) [#/Vol] 5.12 10*6/uL 4.6-6.2 [facility] Serum creatinine measurement (mass/volume)Ordered By: Shiv Garcia on 11-27-2024 Creatinine [Mass/Vol] 0.93 mg/dL 0.70-1.20 [facility] Serum globulin measurementOr dered By: Shiv Garcia on 11-27-2024 Globulin (S) [Mass/Vol] 2.6 g/dL 2.2-4.2 [facility] Serum glucose measurement (m ass/volume)Ordered By: Shiv Garcia on 11-27-2024 Glucose [Mass/Vol] 86 mg/dL 70-99 [facility] Serum or plasma alanine oleary otransferase (ALT) measurementOrdered By: Shiv Garcia on 11-27-2024 ALT [Catalytic activity/Vol] 34 U/L <47 [facility] Serum or plasma albumin yoel urement (mass/volume)Ordered By: Shiv Garcia on 11-27-2024 Albumin [Mass/Vol] 4.7 g/dL 3.5-5.0 [facility] Serum or plasma albumin/glob ulin mass ratioOrdered By: Shiv Garcia on 11-27-2024 Albumin/Globulin [Mass ratio] 1.8 {ratio} 0.9-2.4 [facility] Serum or plasma alkaline peyton sphatase measurementOrdered By: Shiv Garcia on 11-27-2024 ALP [Catalytic activity/Vol] 66 U/L 40-129 [facility] Serum or plasma calcium yoel urement (mass/volume)Ordered By: Shiv Garcia on 11-27-2024 Calcium [Mass/Vol] 9.5 mg/dL 7.6-11.0 [facility] Serum or plasma urea nitroge n measurement (mass/volume)Ordered By: Shiv Garcia on 11-27-2024 Urea nitrogen [Mass/Vol] 14 mg/dL 4-19 [facility] Sodium levelOrdered By: Shiv Garcia on 11-27-2024 Sodium [Moles/Vol] 138 mmol/L 133-145 [facility] Total proteinOrdered By: Whitney Garcia on 11-27-2024 Protein [Mass/Vol] 7.3 g/dL 5.9-8.4 [facility] White blood cell (WBC) count Ordered By: Shiv Garcia on 11-27-2024 WBC (Bld) [#/Vol] 9.8 10*3/uL 4.4-11.0 [facility] ANES POSTPROC EVALon 025 ANES POSTPROC EVAL HNO ID: [id number] Author: VICK PLATA APRN.LOCAL SALES ASSOCIATE Service: ? Author Type: Nurse Vender Type: Anesthesia Postprocedure Evaluation Filed: 11/19/2024 07:52 Note Text: POST ANESTHESIA EVALUATION NOTE : 1985 Procedure Summary Date: 11/19/24 Room / Location: [facility] Anesthesia Start: 726 Anesthesia Stop: 743 Procedure: COLONOSCOPY DIAGNOSTIC Diagnosis: Rectal bleeding (Hematochezia) Scheduled Providers: Vi Trevino Jr., ; Aiyana Mancilla RN; Vick Plata APRN.CRNA Responsible Provider: Vick Plata APRN.CRNA Anesthesia Type: [...] Anesthesia Observations No Documentation SIGNATURE: Vick Plata APRN.LOCAL SALES ASSOCIATE PATIENT NAME: Carl Gross DATE: November 19, 2024 TIME: 7:52 AM CSN: [id number] Normal [facility] ANES PRE-OPon 11-19-2024 ANES PRE-OP HNO ID: [id number] Author: VICK PLATA APRN.LOCAL SALES ASSOCIATE Service: ? Author Type: Nurse Vender Type: Anesthesia Preprocedure Evaluation Filed: 11/19/2024 07:22 Note Text: ANESTHESIOLOGY DAY OF SURGERY NOTE : 1985 Procedure Information Date/Time: 11/19/24 0730 Scheduled providers: Vi Trevino Jr., DO; Aiyana Mancilla RN; Vick Plata APRN.LOCAL SALES ASSOCIATE Procedure: COLONOSCOPY DIAGNOSTIC Location: [facility] Estimated body mass index is 34.78 kg/m? [...] and consent discussed: yes. Patient / Responsible Alliance Party agrees to proceed: yes Patient / [...] (FLONASE) 50 mcg/actuation nasal spray Use 1 [place] in each nostril daily at bedtime. montelukast [...] 48 hours of Surgery/Procedure. SIGNATURE: Vick Plata APRN.LOCAL SALES ASSOCIATE PATIENT NAME: Carl Gross DATE: November 19, 2024 TIME: 7:16 AM CSN: [id number] Normal [facility] Colonoscopyon 11-19-2024 Colonoscopy [facility] Gastrointestinal Endoscopy Patient Name: Carl Gross Procedure Date: 11/19/2024 7:16 AM Date of : 1985 Admit Type: Outpatient Age: 39 Gender: Male Note Status: Finalized Attending MD: Vi Trevino Jr, DO, [id number] Procedure: Colonoscopy Indications: Hematochezia Providers: Vi Trevino [...] the patient. Procedure Code(s): --- Professional --- 77555, Colonoscopy, flexible; diagnostic, including collection of specimen(s) by brushing or washing, when performed (separate procedure) Diagnosis Code(s): --- Professional --- K64.1, Second degree hemorrhoids K92.1, Melena (includes Hematochezia) CPT copyright 2020 [employer]. All rights reserved. The codes documented in this report are preliminary and upon medical biller coder review may be revised to meet current compliance requirements. Attending Participation: I personally performed the entire procedure. MD Vi Perkins Jr, DO 11/19/2024 7:48:36 AM This report has been signed electronically by Vi Trevino Jr, DO Number of Addenda: 0 Note Initiated On: 11/19/2024 7:16 AM Procedure Start: 7:31:01 AM Procedure End: 7:41:17 AM Normal [facility] Flexible sigmoidoscopy study on 11-19-2024 [facility] Gastrointestinal Endoscopy Patient Name: Carl Gross Procedure Date: 11/19/2024 7:16 AM Date of : 1985 Admit Type: Outpatient Age: 39 Gender: Male Note Status: Finalized Attending MD: Vi Trevino Jr, DO, [id number] Procedure: Colonoscopy Indications: Hematochezia Providers: Vi Trevino [...] the patient. Procedure Code(s): --- Professional --- 04183, Colonoscopy, flexible; diagnostic, including collection of specimen(s) by brushing or washing, when performed (separate procedure) Diagnosis Code(s): --- Professional --- K64.1, Second degree hemorrhoids K92.1, Melena (includes Hematochezia) CPT copyright 2020 [employer]. All rights reserved. The codes documented in this report are preliminary and upon medical biller coder review may be revised to meet current compliance requirements. Attending Participation: I personally performed the entire procedure. MD Vi Perkins Jr, DO 11/19/2024 7:4 (more content not included)... PROVATION [facility] Radiology Study observation (narrative) [facility] HISTORY PHYSICALon HISTORY PHYSICAL HNO ID: [id number] Author: VI TREVINO JR, DO Service: Gastroenterology [...] 2024 TIME: 7:21 AM PAGER/CONTACT #: Normal [facility] PROGon 11-19-2024 NURSING PROG HNO ID: [id number] Author: WENDY MENDOZA RN Service: Nursing Author [...] Signed By: Wendy Mendoza RN In Department: [facility] ENDOSCOPY [facility] NURSING PROG HNO ID: [id number] Author: CHRISTI WALLACE RN Service: Nursing Author Type: Registered Nurse Type: Nursing Progress Note Filed: 11/19/2024 07:25 Note Text: Patient had left knee arthroscopy 11/16/2024. Patient stated that orthopedic surgeon informed him that it is acceptable to have colonoscopy today. Dr Trevino and Vick Plata LOCAL SALES ASSOCIATE informed. Okay to proceed as planned. [facility] NURSING PROG HNO ID: [id number] Author: CHRISTI WALLACE RN Service: Nursing Author [...] Signed By: Christi Wallace RN In Department: [facility] ENDOSCOPY [facility] CNOVon 11-05-2024 CNOV Office Visit (FAMPWS ) CARL GROSS ([id number]) 1985 M Date Time Provider Department 11/05/24 3:40 PM SHELLY BRODERICK During your visit today, we recorded the following information about you: Pulse Respiration Blood pressure Weight 76/minute 12/minute 140/80 119.6 kg Shelly Broderick APRN.LADLE FILLER 11/05/2024 4:14 PM Signed Chief Complaint Patient [...] (FLONASE) 50 mcg/actuation nasal spray Use 1 [place] in each nostril daily at bedtime. montelukast [...] Used Sub (more content not included)... Normal [facility] Office Visit Reporton 2024 Office Visit Report [facility] [address] [place] [address] OFFICE VISIT Date of Service: 08/28/24 MR#: [id number] Acct: [id number] Patient: CARL GROSS GENE Rep #: [id number] : 1985 Provider: NEO Epps Age/Sex: 39/M Location: [facility] Status: Signed Intake Vital Signs 07/11/24 18:09 Height 6 ft 1 in Intake Visit Reasons: PE/NON DOT/DRUG SCREEN/PRC [place] Chief Complaint: Left hand laceration Allergies bee venom protein (honey bee) Allergy (Verified 07/11/24 18:09) Anaphylaxis Cyanoacrylates Allergy (Verified 07/11/24 18:09) Rash Office Procedures [facility] Billing Sheet Testing Pre-Employment Drug Screen: Yes 09/19/24 1141 Date Davon LARSON Cosigner Signature: Date (if applicable) CC: Normal [facility] [place] 09-18-2024 [place] Telephone (FAMPWS) CARL GROSS ([id number]) 1985 M Date Time Provider Department 09/18/24 SIMBA HORTON During your visit today, we recorded the following information about you: Clarissa Nevarez LPN 09/18/2024 10:48 AM Signed MySmartP[employer]et message: I went to the hospital early [...] information listed below given. Pt transferred to signing teacher to get and [facility] ER FU scheduled and then he [...] (FLONASE) 50 mcg/actuation nasal spray Use 1 [place] in each nostril daily at bedtime. - [...] Encounter Status:Closed by PRICILLA HATFIELD [facility] ([id number]) 1985 M Date Time Provider Department 09/18/24 SIMBA HORTON 4CQ During your visit today, we recorded the following information about you: Maria De Jesus Mcfarland 09/18/2024 4:53 PM Addendum Pt transferred to this pss to schedule [facility] f/u for medication. Pt was advised insurance was OON. Pt stated he would have new insurance as of and wanted to wait till new insurance was in affect. Pt would call back after Sep 29 to update ins and schedule appt. Shelly Broderick APRN.LADLE FILLER 09/19/2024 12:32 PM Signed Noted. Thank you, Shelly Broderick APRN.LADLE FILLER Allergies As of Date: 09/18/2024 Noted Allergy [...] (FLONASE) 50 mcg/actuation nasal spray Use 1 [place] in each nostril daily at bedtime. - [...] Encounter Status:Closed by SHELLY BRODERICK on 09/19/24 [facility] Emergency Department Summary on 09-16-2024 Emergency Department Summary [facility] Records Department [address] [place] [address] Emergency Department Summary 09/16/24 MR#: [id number] Acct: [id number] Name: CARL GROSS Rep #: [id number] : 1985 39 From: Fritz Beasley DO [...] concern for internal injury presents for evaluation [facility] Medical History Gout Asthma Home [...] [facility] Knee 4 or More Viewson 09-16 Knee 4 or More Views [facility] Imaging Services [address] [place] [address] Knee 4 or More Views MR#: [id number] Acct: [id number] Name: CARL GROSS Rep #: [id number] : 1985 M 39 From: Daljit ambriz MD PCP: Dr. Simba Horton DO Status: DEP ER Study: Knee 4 or More Views Date of Exam: 09/16/24 Exam# [id number] Ordering Dr: Fritz Beasley DO [id number] EXAM: XR LEFT KNEE COMPLETE, 4 OR [...] Dr. Simba Horton DO; Fritz Beasley DO Anatomic Pathology Manager: Signed [facility] 08-27-2024 [facility] Telephone (FAMPWS) GINNYCARL Annamarie ([id number]) 1985 M Date Time Provider Department 08/27/24 [facility] During your visit today, we recorded the [...] (FLONASE) 50 mcg/actuation nasal spray Use 1 [place] in each nostril daily at bedtime. - [...] Encounter Status:Closed by TUAN PUENTES on 11/16/24 [facility] [place] 08-24-2024 [facility] Telephone (KAL) CARL GROSS ([id number]) 1985 M Date Time Provider Department 08/24/24 MARIA G, ROBI L GASTMN During your visit today, we recorded the following information about you: Falguni Moralez 08/24/2024 3:38 PM Signed CoverMyMeds fax requesting Dupixent prior authorization, scanned in [employer] Separate fax received from [facility] Specialty to notify office the prior authorization has to be submitted via [employer] [facility] [phone] Mady Hatfield RN 08/28/2024 2:10 PM Signed PA submitted via [email or web address] (Droppy) Dena Miguel 08/31/2024 1:43 PM Signed ezzai - how to arabia sent notice that Dupixent Pen was APPROVED [...] (FLONASE) 50 mcg/actuation nasal spray Use 1 [place] in each nostril daily at bedtime. - [...] Encounter Status:Closed by FALGUNI MORALEZ on 08/24/24 [facility] 08-13-2024 [facility] Telephone (FAMWS) CARL GROSS ([id number]) 1985 M Date Time Provider Department 08/13/[address] [facility] During your visit today, we recorded the following information about you: Simba Horton DO 08/13/2024 7:47 AM Signed Please inform patient that all his stool studies are normal appearing DO Jethro Novoa Linda M, LPN 08/13/2024 11:53 AM Signed Left message to [...] (FLONASE) 50 mcg/actuation nasal spray Use 1 [place] in each nostril daily at bedtime. - [...] Encounter Status:Closed by CHRISTY TEE on 08/15/[address] [facility] CNOVon 07-25-2024 CNOV Office Visit (FAMPWS ) CARL GROSS ([id number]) 1985 M Date Time Provider Department 07/25/24 1:20 PM SIMBA HORTON FAMPWS During your visit today, we recorded [...] to fuse 1st MTP by Dr. 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 montelukast [...] of a (more content not included)... Normal [facility] Gastrointestinal pathogens i dentified JOY+probe Nom (Stl)on 07-25-2024 Campylobacter sp DNA JOY+probe Nom (Unsp spec) Not detected Normal Not Detected [facility] Comment on above: Order Comment: Speci men Type: STOOL SPECIMENOrdering Facility: [facility] Address: [address] [place] [address] Performed By: #### 7 9390-1 ####[facility] [id number] [place] [address] [place] Salmonella sp DNA JOY+probe Ql (Unsp spec) Not detected Normal Not Detected [facility] Comment on above: Order Comment: Speci men Type: STOOL SPECIMENOrdering Facility: [facility] Address: [address] [place] [address] Performed By: #### 7 9390-1 ####[facility] [id number] [place] [address] [place] Shiga toxin stx gene JOY+probe Nom (Unsp spec) Not detected Normal Not Detected [facility] Comment on above: Order Comment: Speci men Type: STOOL SPECIMENOrdering Facility: [facility] Address: [address] [place] [address] Performed By: #### 7 9390-1 ####[facility] [id number] [place] [address] [place] Shigella sp DNA JOY+probe Ql (Unsp spec) Not detected Normal Not Detected [facility] Comment on above: Order Comment: Speci men Type: STOOL SPECIMENOrdering Facility: [facility] Address: [address] [place] [address] Performed By: #### 7 9390-1 ####[facility] [id number] [place] [address] [place] H pylori Ag Stl Ql IAon 06-30 H. pylori Ag IA Ql (Stl) H.PYLORI EIA RESULT: Negative for Helicobacter pylori antigen by EIA Normal [facility] Comment on above: Performed By: #### P ANCEF, 27148-7 ####[facility] [id number] [place] [address] [place] PANC ELASTASE, FECALon 07-25 ELASTASE INTERPRETATION Normal Normal Normal [facility] Comment on above: Order Comment: Speci men Type: STOOL SPECIMENOrdering Facility: [facility] Address: [address] [place] [address] Performed By: #### P ANCEF, 02730-5 ####[facility] [id number] [place] [address] [place] ELASTASE-1 CONCENTRATION >800 Normal >=[address] [facility] Comment on above: Order Comment: Speci men Type: STOOL SPECIMENOrdering Facility: [facility] Address: [address] [place] [address] Result Comment: Inte rpretation: <100 ug/g: Severe Exocrine Pancreatic Insufficiency 100-199 ug/g: Mild to Moderate Exocrine Pancreatic Insufficiency >=200 ug/g: Normal Performed By: #### P ANCEF, 84705-6 ####[facility] [id number] [place] [id number] [place] Emergency Department Summary on 07-11-2024 Emergency Department Summary [facility] Records Department [address] [place] [address] Emergency Department Summary 07/11/24 MR#: [id number] Acct: [id number] Name: CARL GROSS GENE Rep #: [id number] : 1985 39 From: Shiv Garcia MD PCP: Dr. Simba Horton, DO Status:REG ER Location: ED HPI History of Present Illness Chief Complaint: Lower Extremity Injury Narrative Narrative: 39-year-old male past history of previous knee surgeries at the [facility] by Dr. Lopez, presents with right [...] swelling of the knee joint or erythema. [facility] Medical History Gout Asthma Home [...] He will continue ice and elevation and [id number] analgesics at home. He has a pair [...] [facility] Tibia Fibula 2 Viewson 07-11 Tibia Fibula 2 Views [facility] Imaging Services [address] [place], [place] [address] Tibia Fibula 2 Views MR#: [id number] Acct: [id number] Name: CARL GROSS GENE Rep #: [id number] : 1985 M 39 From: Delbert weiss DO PCP: Dr. Simba Horton, Status: REG ER Study: Tibia Fibula 2 Views Date of Exam: 07/11/24 Exam# [id number] Ordering Dr: Shiv Garcia MD [id number] EXAM: XR RIGHT TIBIA AND FIBULA, 2 [...] Shiv Garcia MD; Dr. Simba Horton DO Anatomic Pathology Manager: Signed Normal [facility] STREP A MOLECULAR (POC)on Interpretation and review of laboratory results Abnormal [facility] Procedural Control Valid [facility] Strep A (POCT) Positive Abnormal Negative [facility] XR Chest PA and Lateralon Radiology Study observation (narrative) [facility] IMPRESSION: No acute radiographic abnormality. Anatomic Pathology Manager: PSCB Transcribe Date/Time: Jun 26 2024 10:18A Dictated by : SYMONE MONZON MD This examination was interpreted and the report reviewed and electronically signed by: SYMONE MONZON MD on Jun 26 2024 10:18AM [facility]IOLOG[facility] * * *Final Report* [...] the thoracic spine. DIVISION OF RADIOLOGY Provider, [facility] - 06/26/2024 * * *Final [...] spine. IMPRESSION IMPRESSION: No acute radiographic abnormality. Anatomic Pathology Manager: ANALI Transcribe Date/Time: Jun 26 2024 10:18A Dictated by : SYMONE MONZON MD This examination was interpreted and the report reviewed and electronically signed by: SYMONE MONZON MD on Jun 26 2024 10:18AM EST [facility] XR Chest PA and LateralOrder ed By: [facility]cf Provider on 06-26-2024 [facility] EGD Study observation Narrat iveon 06-12-2024 [facility] Radiology Study observation (narrative) [facility] 25-hydroxyvitamin D3 [Mass/V ol]on 05-01-2024 Interpretation and review of laboratory results Normal [facility] The reference range interval was based on an analysis of samples from healthy adults and may not pertain to children from 0-18 years old. [facility] CBC W Auto Differential pane l (Bld)on 05-01-2024 Basophils (Bld) [#/Vol] 0.05 10*3/uL [facility] Basophils/100 WBC (Bld) 0.5 % [facility] Differential cell count method Nom (Bld) Auto [facility] Eosinophils (Bld) [#/Vol] 0.51 10*3/uL High [facility] Eosinophils/100 WBC (Bld) 5.6 % [facility] Erythrocyte distribution width (RBC) [Ratio] 11.9 % 11.5 - 15.0 % [facility] Hematocrit (Bld) [Volume fraction] 46.8 % 39.0 - 51.0 % [facility] Hemoglobin (Bld) [Mass/Vol] 15.2 g/dL 13.0 - 17.0 g/dL [facility] Immature granulocytes (Bld) [#/Vol] 0.06 10*3/uL [facility] Immature granulocytes/100 WBC (Bld) 0.7 % [facility] Interpretation and review of laboratory results Abnormal [facility] Lymphocytes (Bld) [#/Vol] 1.96 10*3/uL [facility] Lymphocytes/100 WBC (Bld) 21.5 % [facility] MCH (RBC) [Entitic mass] 29.5 pg 26.0 - 34.0 pg [facility] MCHC (RBC) [Mass/Vol] 32.5 g/dL 30.5 - 36.0 g/dL [facility] MCV (RBC) [Entitic vol] 90.7 fL 80.0 - 100.0 fL [facility] Monocytes (Bld) [#/Vol] 0.72 10*3/uL NINF [facility] Monocytes/100 WBC (Bld) 7.9 % [facility] Neutrophils (Bld) [#/Vol] 5.82 10*3/uL [facility] Neutrophils/100 WBC (Bld) 63.8 % [facility] Nucleated RBC (Bld) [#/Vol] NINF [facility] Nucleated RBC/100 WBC (Bld) [Ratio] 0.0 % /100 WBC [facility] Platelet mean volume (Bld) [Entitic vol] 10.5 fL 9.0 - 12.7 fL [facility] Platelets (Bld) [#/Vol] 246 10*3/uL [facility] RBC (Bld) [#/Vol] 5.16 10*6/uL 4.20 - 6.00 m/uL [facility] WBC (Bld) [#/Vol] 9.12 10*3/uL [facility] Comprehensive metabolic 2000 panelon 05-01-2024 Albumin [Mass/Vol] 4.7 g/dL 3.9 - 4.9 g/dL [facility] ALP [Catalytic activity/Vol] 57 U/L 38 - 113 U/L [facility] ALT [Catalytic activity/Vol] 33 U/L 10 - 54 U/L [facility] Anion gap [Moles/Vol] 10 mmol/L 8 - 15 mmol/L [facility] AST [Catalytic activity/Vol] 27 U/L 14 - 40 U/L [facility] Bilirubin [Mass/Vol] 0.4 mg/dL 0.2 - 1 .3 mg/dL [facility] Calcium [Mass/Vol] 9.8 mg/dL 8.5 - 10. 2 mg/dL [facility] Chloride [Moles/Vol] 105 mmol/L 98 - 10 7 mmol/L [facility] CO2 [Moles/Vol] 25 mmol/L 22 - 30 mmol/L [facility] Creatinine [Mass/Vol] 0.83 mg/dL 0.73 - 1.22 mg/dL [facility] GFR/1.73 sq M.predicted among non-blacks MDRD (S/P/Bld) [Vol rate/Area] 113 mL/min/{1.73_m2} - PINF [facility] Comment on above: Estimated Glomerular Filtration Rate [...] 101 mg/dL High 74 - 99 mg/dL [facility] Comment on above: The [place] Diabete s Association (ADA) provides guidance for [...] Standards of Medical Care in Diabetes 2016, [place] [employer] Association. Diabetes Care. 2016.39(Suppl 1). Interpretation and review of laboratory results Abnormal [facility] Potassium [Moles/Vol] 4.6 mmol/L 3.7 - 5.1 mmol/L [facility] Protein [Mass/Vol] 7.5 g/dL 6.3 - 8.0 g/dL [facility] Sodium [Moles/Vol] 140 mmol/L 136 - 144 mmol/L [facility] Urea nitrogen [Mass/Vol] 23 mg/dL 9 - 24 mg/dL [facility] MAGNESIUMon 05-01-2024 Magnesium [Mass/Vol] 2.3 mg/dL 1.7 - 2 .3 mg/dL [facility] Magnesium [Mass/Vol]on 05-01 Interpretation and review of laboratory results Normal [facility] No Panel Informationon 05-01 Interpretation and review of laboratory results Normal [facility] THYROID STIMULATING HORMONEo n 05-01-2024 TSH Qn 1.120 m[IU]/L [facility] VITAMIN B12on 05-01-2024 Cobalamin (Vitamin B12) [Mass/Vol] 942 pg/mL 232 - 1245 pg/mL [facility] VITAMIN D 25 HYDROXYon 05-01 25-hydroxyvitamin D3 [Mass/Vol] 52.7 ng/mL 31.0 - 80.0 ng/mL [facility] Comment on above: Classification of 25 [place] Vitamin D status: Deficiency/Insufficiency: < or = 30 ng/ml. Sufficiency/Optimal Levels: 31-80 ng/mL Toxicity: > 100 ng/mL. Test performed by chemiluminescent immunoassay. EGD Study observation Narrat iveon 03-20-2024 [facility] Radiology Study observation (narrative) [facility] EGD Study observation Narrat iveon 12-20-2023 [facility] Radiology Study observation (narrative) [facility] Influenza virus A and B RNA and SARS-CoV-2 (COVID-19) N gene panel JOY+probe (Resp)on 10-11-2023 FLUAV RNA JOY+probe Ql (Unsp spec) Detected Abnormal Not Detected [facility] FLUBV RNA JOY+probe Ql (Unsp spec) Not detected Not Detected [facility] SARS-CoV-2 (COVID-19) RNA JOY+probe Ql (Resp) Not detected See comment [facility] STREP A MOLECULAR (POC)on Procedural Control Valid [facility] Strep A (POCT) Negative Negative [facility] EGD - THERAPEUTIC, EUS, OR T UBE INTERVENTIONSon 07-19-2023 [facility] CBC W Auto Differential pane l (Bld)on 04-26-2023 Basophils (Bld) [#/Vol] 0.03 10*3/uL <0.11 k/uL [facility] Basophils/100 WBC (Bld) 0.4 % [facility] Differential cell count method Nom (Bld) Auto [facility] Eosinophils (Bld) [#/Vol] 0.37 10*3/uL <0.46 k/uL [facility] Eosinophils/100 WBC (Bld) 5.5 % [facility] Erythrocyte distribution width (RBC) [Ratio] 11.8 % 11.5 - 15.0 % [facility] Hematocrit (Bld) [Volume fraction] 46.0 % 39.0 - 51.0 % [facility] Hemoglobin (Bld) [Mass/Vol] 15.2 g/dL 13.0 - 17.0 g/dL [facility] Immature granulocytes (Bld) [#/Vol] <0.10 k/uL [facility] Immature granulocytes/100 WBC (Bld) 0.3 % [facility] Lymphocytes (Bld) [#/Vol] 1.59 10*3/uL 1.00 - 4.00 k/uL [facility] Lymphocytes/100 WBC (Bld) 23.7 % [facility] MCH (RBC) [Entitic mass] 28.9 pg 26.0 - 34.0 pg [facility] MCHC (RBC) [Mass/Vol] 33.0 g/dL 30.5 - 36.0 g/dL [facility] MCV (RBC) [Entitic vol] 87.5 fL 80.0 - 100.0 fL [facility] Monocytes (Bld) [#/Vol] 0.47 10*3/uL <0.87 k/uL [facility] Monocytes/100 WBC (Bld) 7.0 % [facility] Neutrophils (Bld) [#/Vol] 4.22 10*3/uL 1.45 - 7.50 k/uL [facility] Neutrophils/100 WBC (Bld) 63.1 % [facility] Nucleated RBC (Bld) [#/Vol] <0.01 k/uL [facility] Nucleated RBC/100 WBC (Bld) [Ratio] 0.0 /100 WBC [facility] Platelet mean volume (Bld) [Entitic vol] 10.6 fL 9.0 - 12.7 fL [facility] Platelets (Bld) [#/Vol] 246 10*3/uL 150 - 400 k/uL [facility] RBC (Bld) [#/Vol] 5.26 10*6/uL 4.20 - 6.00 m/uL [facility] WBC (Bld) [#/Vol] 6.70 10*3/uL 3.70 - 11.00 k/uL [facility] Comprehensive metabolic 2000 panelon 04-26-2023 Albumin [Mass/Vol] 5.1 g/dL High 3.9 - 4.9 g/dL [facility] ALP [Catalytic activity/Vol] 65 U/L 38 - 113 U/L [facility] ALT [Catalytic activity/Vol] 32 U/L 10 - 54 U/L [facility] Anion gap [Moles/Vol] 11 mmol/L 9 - 18 mmol/L [facility] AST [Catalytic activity/Vol] 36 U/L 14 - 40 U/L [facility] Bilirubin [Mass/Vol] 0.4 mg/dL 0.2 - 1 .3 mg/dL [facility] Calcium [Mass/Vol] 10.0 mg/dL 8.5 - 10. 2 mg/dL [facility] Chloride [Moles/Vol] 102 mmol/L 97 - 10 5 mmol/L [facility] CO2 [Moles/Vol] 26 mmol/L 22 - 30 mmol/L [facility] Creatinine [Mass/Vol] 0.99 mg/dL 0.73 - 1.22 mg/dL [facility] Estimated Glomerular Filtration Rate 99 mL/min/1.73m >=60 mL/min/1.7 3m [facility] Glucose [Mass/Vol] 91 mg/dL 74 - 99 mg/dL [facility] Potassium [Moles/Vol] 4.0 mmol/L 3.7 - 5.1 mmol/L [facility] Protein [Mass/Vol] 7.2 g/dL 6.3 - 8.0 g/dL [facility] Sodium [Moles/Vol] 139 mmol/L 136 - 144 mmol/L [facility] Urea nitrogen [Mass/Vol] 12 mg/dL 9 - 24 mg/dL [facility] Lipid 1996 panelon 3 Cholesterol [Mass/Vol] 144 mg/dL <200 mg/dL [facility] Cholesterol in HDL [Mass/Vol] 46 mg/dL >39 mg/dL [facility] Cholesterol in LDL [Mass/Vol] 74 mg/dL <100 mg/dL [facility] Cholesterol in LDL/Cholesterol in HDL [Mass ratio] 1.61 {ratio} <2.54 [facility] Cholesterol in VLDL [Mass/Vol] 24 mg/dL <30 mg/dL [facility] Cholesterol non HDL [Mass/Vol] 98 mg/dL <130 mg/dL [facility] Cholesterol.total/Cho lesterol in HDL [Mass ratio] 3.13 {ratio} <5.10 [facility] Fasting Time 12 hrs [facility] Triglyceride [Mass/Vol] 120 mg/dL <150 mg/dL [facility] T4 FREE/FREE THYROXon 2022 Free T4 [Mass/Vol] 1.4 ng/dL 0.9 - 1.7 ng/dL [facility] TSH BLDon 04-26-2023 TSH Qn 0.631 m[IU]/L 0.270 - 4.200 mIU/L [facility] URIC ACID BLOODon 04-26-2023 Urate [Mass/Vol] 6.9 mg/dL 4.0 - 8.1 mg/dL [facility] VITAMIN B12 BLOODon 04-26-20 Cobalamin (Vitamin B12) [Mass/Vol] 759 pg/mL 232 - 1,245 pg/mL [facility] EGD - THERAPEUTIC, EUS, OR T UBE INTERVENTIONSon 03-29-2023 [facility] XR Ankle - left AP and Later al and obliqueon 12-14-2022 IMPRESSION: No radiographic evidence of acute osseous injury Anatomic Pathology Manager: ANALI Transcribe Date/Time: Dec 14 2022 4:16P Dictated by : SYMONE MONZON MD This examination was interpreted and the report reviewed and electronically signed by: SYMONE MONZON MD on Dec 14 2022 4:17PM [facility] * * *Final Report* [...] plantar calcaneal enthesophytes DIVISION OF RADIOLOGY Provider, Mohamud Wise - 12/14/2022 * * *Final Report* * [...] No radiographic evidence of acute osseous injury Anatomic Pathology Manager: ANALI Transcribe Date/Time: Dec 14 2022 4:16P Dictated by : SYMONE MONZON MD This examination was interpreted and the report reviewed and electronically signed by: SYMONE MONZON MD on Dec 14 2022 4:17PM EST [facility] XR Ankle - left AP and Later al and obliqueOrdered By: Ccf Provider on 12-14-2022 [facility] XR Ankle - left AP and Later al and obliqueon 12-13-2022 Radiology Study observation (narrative) [facility] No Panel InformationOrdered By: Reanna Cheung on 11-07-2022 D-Dimer Quantitative (PE/DVT) < 0.27 FEU/ug/m 0.27-0.49 [facility] Comment on above: NORMAL D-Dimer level (<0.50) indicates no DVT or PE. EGD - THERAPEUTIC, EUS, OR T UBE INTERVENTIONSon 11-02-2022 [facility] EGD - THERAPEUTIC, EUS, OR T UBE INTERVENTIONSon 05-18-2022 [facility] CBC W Auto Differential pane l (Bld)on 01-12-2022 Abs Immature Gran 0.03 k/uL <0.10 k/uL [facility] Basophils (Bld) [#/Vol] 0.05 10*3/uL <0.11 k/uL [facility] Basophils/100 WBC (Bld) 0.6 % [facility] Differential cell count method Nom (Bld) Auto [facility] Eosinophils (Bld) [#/Vol] 0.49 10*3/uL High <0.46 k/uL [facility] Eosinophils/100 WBC (Bld) 6.1 % [facility] Erythrocyte distribution width (RBC) [Ratio] 11.9 % 11.5 - 15.0 % [facility] Hematocrit (Bld) [Volume fraction] 47.7 % 39.0 - 51.0 % [facility] Hemoglobin (Bld) [Mass/Vol] 16.4 g/dL 13.0 - 17.0 g/dL [facility] Immature Gran % 0.4 % [facility] Lymphocytes (Bld) [#/Vol] 1.59 10*3/uL 1.00 - 4.00 k/uL [facility] Lymphocytes/100 WBC (Bld) 19.7 % [facility] MCH (RBC) [Entitic mass] 30.5 pg 26.0 - 34.0 pg [facility] MCHC (RBC) [Mass/Vol] 34.4 g/dL 30.5 - 36.0 g/dL [facility] MCV (RBC) [Entitic vol] 88.8 fL 80.0 - 100.0 fL [facility] Monocytes (Bld) [#/Vol] 0.55 10*3/uL <0.87 k/uL [facility] Monocytes/100 WBC (Bld) 6.8 % [facility] Neutrophils (Bld) [#/Vol] 5.36 10*3/uL 1.45 - 7.50 k/uL [facility] Neutrophils/100 WBC (Bld) 66.4 % [facility] Nucleated RBC (Bld) [#/Vol] 10*3/uL <0.01 k/uL [facility] Nucleated RBC/100 WBC (Bld) [Ratio] 0.0 /100 WBC [facility] Platelet mean volume (Bld) [Entitic vol] 10.2 fL 9.0 - 12.7 fL [facility] Platelets (Bld) [#/Vol] 208 10*3/uL 150 - 400 k/uL [facility] RBC (Bld) [#/Vol] 5.37 10*6/uL 4.20 - 6.00 m/uL [facility] WBC (Bld) [#/Vol] 8.07 10*3/uL 3.70 - 11.00 k/uL [facility] Comprehensive metabolic 2000 panelon 01-12-2022 Albumin [Mass/Vol] 4.7 g/dL 3.9 - 4.9 g/dL [facility] ALP [Catalytic activity/Vol] 83 U/L 38 - 113 U/L [facility] ALT [Catalytic activity/Vol] 37 U/L 10 - 54 U/L [facility] Anion gap [Moles/Vol] 12 mmol/L 9 - 18 mmol/L [facility] AST [Catalytic activity/Vol] 32 U/L 14 - 40 U/L [facility] Bilirubin [Mass/Vol] 0.3 mg/dL 0.2 - 1 .3 mg/dL [facility] Calcium [Mass/Vol] 9.2 mg/dL 8.5 - 10. 2 mg/dL [facility] Chloride [Moles/Vol] 102 mmol/L 97 - 10 5 mmol/L [facility] CO2 [Moles/Vol] 25 mmol/L 22 - 30 mmol/L [facility] Creatinine [Mass/Vol] 1.05 mg/dL 0.73 - 1.22 mg/dL [facility] Estimated Glomerular Filtration Rate 93 mL/min/1.73m >=60 mL/min/1.7 3m [facility] Glucose [Mass/Vol] 114 mg/dL High 74 - 99 mg/dL [facility] Potassium [Moles/Vol] 4.4 mmol/L 3.7 - 5.1 mmol/L [facility] Protein [Mass/Vol] 7.4 g/dL 6.3 - 8.0 g/dL [facility] Sodium [Moles/Vol] 139 mmol/L 136 - 144 mmol/L [facility] Urea nitrogen [Mass/Vol] 11 mg/dL 9 - 24 mg/dL [facility] ANES POSTPROC EVALon 021 ANES POSTPROC EVAL HNO ID: [id number] Author: Karan Ingram MD Service: Anesthesiology Author Type: Anesthesiologist Type: Anesthesia Postprocedure Evaluation Filed: 01/21/2021 10:47 AM Note Text: POST ANESTHESIA EVALUATION NOTE : 1985 Procedure Summary Date: 01/21/21 Room / Location: MD ENDO A / MD ENDO Anesthesia Start: 958 Anesthesia Stop: 1033 [...] January 21, 2021 TIME: 10:46 AM CSN: [id number] [facility] ANES PRE-OPon 01-21-2021 ANES PRE-OP HNO ID: [id number] Author: Tanmay Woodard MD Service: Anesthesiology Author [...] 0839 Pulse 89 01/21/21 0839 Resp 18 01/21/2139 Temp 37 ?C (98.6 ?F) 01/21/2139 SpO2 99 % 01/21/2139 Facility-Administered Medications as of 01/21/2021 Medication Dose [...] January 21, 2021 TIME: 8:41 AM CSN: [id number] Normal [facility] HISTORY PHYSICALon HISTORY PHYSICAL HNO ID: [id number] Author: Mauro Ramires MD Service: General Surgery [...] January 21, 2021 TIME: 10:00 AM Normal [facility] SURGICAL PATHOLOGYon 021 SURGICAL PATHOLOGY Specimen originated from [facility] Specimen #: [id number] Submitting Physician: Mauro Ramires M.D. FINAL DIAGNOSIS [...] be considered if there is clinical concern. RG/jossy 01/22/2021 Dewey Montes M.D. PhD. (Electronic Signature) [...] in four cassettes. Gross examination performed at [facility], [address] [place] [address] J 01/21/2021 4:09:45 PM Date of Report: 01/23/2021 Date of Procedure: 01/21/2021 Date of Receipt: 01/21/2021 Submitted by: Mauro Ramires M.D. Location: [facility] Diagnostic interpretation performed at [place] [address]. IA Number: [id number] [facility] ANES POSTPROC EVALon 021 ANES POSTPROC EVAL HNO ID: [id number] Author: Freddy Valera MD Service: Anesthesiology Author Type: Anesthesiologist Type: Anesthesia Postprocedure Evaluation Filed: 11/19/2020 11:05 AM Note Text: POST ANESTHESIA EVALUATION NOTE : 1985 Procedure Summary Date: 11/19/20 Room / Location: MD OR / MD OR Anesthesia Start: 730 Anesthesia Stop: 857 [...] November 19, 2020 TIME: 11:05 AM CSN: [id number] [facility] ANES PRE-OPon 11-19-2020 ANES PRE-OP HNO ID: [id number] Author: Freddy Valera MD Service: Anesthesiology Author [...] none. Vitals Value Taken Time BP 148/96 11/19/20629 Pulse Resp 16 11/19/20629 Temp 36.6 ?C (97.9 ?F) 11/19/20629 SpO2 [...] November 19, 2020 TIME: 7:04 AM CSN: [id number] [facility] HISTORY PHYSICALon HISTORY PHYSICAL HNO ID: [id number] Author: Mauro Ramires Service: General Surgery Author [...] DATE: November 19, 2020 TIME: 6:[address] [facility] OPERATIVE NOon 11-19-2020 OPERATIVE NO HNO ID: [id number] Author: Mauro Ramires Service: General Surgery Author Type: Physician Type: Operative Report Filed: 11/19/2020 10:42 AM Note Text: OPERATIVE/PROCEDURE REPORT LOG ID: [id number] SURGERY/PROCEDURE DATE: 11/19/2020 INCISION/PROCEDURE START TIME: 7:56 AM INCISION CLOSE/PROCEDURE END TIME: 8:45 AM SURGEON(S)/PROCEDURALIST(S) AND REVERSAL PRINT INSPECTOR(S): Surgeon(s) and Role: * Mauro Ramires - Primary Physician Bath Steward: Sakshi Borden (Pa) SURGERY/PROCEDURE(S): 1 laparoscopic cholecystectomy 2. Repair of umbilical hernia ANESTHESIA: General SURGERY/PROCEDURE DETAILS: Patient was brought into the operating room. Placed in the supine position. Under excellent general endotracheal Bashan the abdomen was sterilely prepped draped in usual fashion. Local was injected supraumbilically. Dissection was carried down a small umbilical hernia was identified this was grasped with a Deer varies needle was placed inside the abdomen [...] to underlying structures. NEO Martinez was my commercial escrow assistant. He assisted with retraction, visualization and [...] DATE: November 19, 2020 TIME: 8:[address] [facility] SURGICAL PATHOLOGYon 021 SURGICAL PATHOLOGY Specimen originated from [facility] Specimen #: [id number] Submitting Physician: Mauro Ramires M.D. FINAL DIAGNOSIS [...] with multiple soft yellow flecks of material. Recruit Instructor sections including the cystic duct margin and lymph node are submitted in one cassette. STS/rw 11/20/2020 Gross examination performed at [facility], [facility] [place] [address] Date of Report: 11/20/2020 Date of Procedure: 11/19/2020 Date of Receipt: 11/19/2020 Submitted by: Mauro Ramires M.D. Location: [facility] Diagnostic interpretation performed at [facility], [facility] [place] [address]. CLIA Number: [id number] [facility] ANES Arnol 05-20-2018 ANES POST HNO ID: [id number] thor: John Ayonervice: AnesthesiologyAuthor Type: PhysicianType: Anesthesia PostOpFiled: 05/20/2018 5:21 PMNote Text:POST ANESTHESIA EVALUATION NOTESERVICE DATE: 05/20/2018SERVICE TIME: 5:21 PMDOB: 1985Vitals: 05/20/1817Temp: 36.6 ?C (97.9 ?F) 37.1 ?C (98.8 ?F) 05/20/1815BP: 135/94 135/87 129/82 112/77 05/20/1814Pulse: (!) 92 89 (!) 91 102 05/20/1814Resp: 18 14 22 20 05/20/1814SpO2: 96% (!) 94% 98% 100%Validated Vital Signs: [...] 2018 : 5:21 PM PAGER/CONTACT #: [phone] [facility] ANES PREOPon 05-20-2018 ANES PREOP HNO ID: [id number] thor: John Ayonervice: AnesthesiologyAuthor Type: PhysicianType: Anesthesia PreOpFiled: 05/20/2018 5:20 PMNote Text:POST ANESTHESIA EVALUATION NOTESERVICE DATE: 05/20/2018SERVICE TIME: 5:20 PMDOB: 1985Vitals: 05/20/1817Temp: 36.6 ?C (97.9 ?F) 37.1 ?C (98.8 ?F) 05/20/1815BP: 135/94 135/87 129/82 112/77 130 4305/20/1815Pulse: (!) 92 89 (!) 91 102 05/20/1814Resp: 18 14 22 20 05/20/1814SpO2: 96% (!) 94% 98% 100%Validated Vital Signs: [...] NAME: Carl ScanlonATE: May 20, 2018 : 5:20 PM PAGER/CONTACT #: [phone] [facility] ANES PREOP HNO ID: [id number] thor: John Ayonervice: AnesthesiologyAuthor Type: PhysicianType: Anesthesia [...] 09/29/2012Potassium 3.9 09/29/2012NES DOS/PREOP NOTE:Vitals: 430 530 05/20/1817BP: 135/94 135/87 129/82Pulse: 89 (!) 91Resp: 14 [...] once daily.No current facility-administered medications for this encounter.Allergies:ALLERGI ESAllergen Reactions- Bee Sting Swelling Local swelling and [...] contains updated information obtained within 48 hours ofSurgery/Procedure.SIGNATU RE: John Faye MD PATIENT NAME: Carl VazquezonDATE: May 20, 2018 : 5:15 PM CSN: [id number] Normal [facility] BRIEF OP NOTon 05-20-2018 BRIEF OP NOT HNO ID: [id number] thor: AZEEM Jenkinservice: GastroenterologyAuthor Type: PhysicianType: Brief Op NoteFiled: 05/20/2018 5:25 PMNote Text:BRIEF OPERATIVE / PROCEDURE NOTELOG ID: [id number]/PROCEDURE DATE: 05/20/2018INCISION/PROCEDURE START TIME: 4:48 PMINCISION CLOSE/PROCEDURE END TIME: 5:02 PMSURGEON(S)/PROCEDURALIST( S) AND REVERSAL PRINT INSPECTOR(S):Surgeon(s) and Role: * Cheryl Shaikh MD - [...] distal and proximal esophagusCOMPLICATIONS: NonePRE-OP/PRE-PROCEDURE DIAGNOSIS: food impactionPOST-OP/POST-PROCE DURE DIAGNOSIS: Food impaction of esophagus [T18.128A]SIGNATURE: Cheryl Shaikh MD PATIENT NAME: Carl ScanlonATE: May 20, 2018 : 5:21 PM PAGER/CONTACT #: Luisa [facility] CONSULTon 05-20-2018 CONSULT HNO ID: [id number] thor: AZEEM Jenkinservice: GastroenterologyAuthor Type: PhysicianType: ConsultsFiled: 05/20/2018 5:17 PMNote Text:CONSULT: GASTROENTEROLOGY SERVICESERVICE DATE: 05/20/18ERVICE TIME: 2:54 PMREASON FOR CONSULT: food in esophagusREQUESTING PHYSICIAN: ERSUBJECTIVECarl Gross is a 33 year old male who was transferred from [facility] food bolus in esophagus. Pt reports that [...] coverage for GI/surgery so transfer here for GIevaluation/managament.PAS T MEDICAL HISTORYDiagnosis Date- Obstructive sleep apnea- Palpitations- [...] No dizziness, lightheadedness, or weaknessOPHTHALMOLOGIC: No visual abnormalitiesMUSCULOSKELETA L: No pain, weakness, or leg swellingSKIN: No rashOBJECTIVEPHYSICAL EXAM: 105 130 430BP: 147/90 125/85 135/94Pulse: (!) 99 (!) 92 [...] Function, Amylase, AND LipaseNo results found for: INRIMPRESSION/RECOMMENDATIO N1. Food bolus in esophagus: DDx: EoE vs stricture vs esophagitis vs etc- NPO- urgent EGD today in ORSIGNATURE: Cheryl Shaikh MD PATIENT NAME: Carl VazquezonDATE: 05/20/18 : 2:54 PM [facility] ED NOTEon 05-20-2018 ED NOTE HNO ID: [id number] Author: Earline SpannRn) YAS Barth Service: Emergency Medicine Author Type: Registered Nurse Type: ED Notes Filed: 05/20/2018 2:42 PM Note Text: Updated pt on or time [facility] ED NOTE HNO ID: [id number] Author: Earline SpannRn) YAS Barth Service: Emergency Medicine Author Type: Registered Nurse Type: ED Notes Filed: 05/20/2018 11:45 AM Note Text: threat monitoring analyst, 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 Normal [facility] ED NOTE HNO ID: [id number] thor: Rhoda SpannRn) BETITO Malikervice: Emergency MedicineAuthor Type: Registered NurseType: ED NotesFiled: 05/20/2018 11:08 AMNote Text:Pt presents from [facility] for a piece of hot dog stuckin his throat. Pt ate it at 2000 last night. [place]. Pt is able to maintain airway but is spittingout saliva. Normal [facility] ED NOTE HNO ID: [id number] thor: Sarah Beth (Medic) Froylan, MedicService: (none)Author Type: Grating Machine Operator and TechnicianType: ED NotesFiled: 05/20/2018 11:05 AMNote Text:Bed: 01-EDExpected date: 05/20/18Expected time: 10:56 AMMeans of arrival: Other EMS FireComments:Transfer from [place]--hotdog stuck in esophagus Normal [facility] ED PROV NOTEon 05-20-2018 Protein mass conc HNO ID: [id number] thor: Elma Simpsonrvice: Emergency MedicineAuthor Type: PhysicianType: ED Provider NotesFiled: 05/21/2018 6:35 PMNote Text:Attending NoteI personally saw and examined the patient. I reviewed the resident'snote. I agree with the resident's assessment and plan unless otherwisenoted.This is a 33 year old male presenting with food bolus. The patient was atthe [employer] game last night ate a hot dog. A piece of the hotdog gotstuck in his esophagus. He states he has not been able to swallow his ownsaliva since then. Symptoms persisted today. He was seen at [facility] given glucagon without relief. He [...] is currently trying to arrange a ride homeFritz Angeles, DO05/21/18 1835 Normal [facility] HOSPon 05-20-2018 HOSP Patient:Corie Gross GMRN: [...] notes entered within the past 30 days Normal [facility] OPERATIVE NOon 05-20-2018 OPERATIVE NO HNO ID: [id number] thor: AZEEM Jenkinservice: GastroenterologyAuthor Type: PhysicianType: Operative ReportFiled: 05/21/2018 12:13 PMNote Text:[facility] - Operative ReportCARCARL SMITH GDOB: 1985AGE: 33.SEX: MMRN: [id number] TYPE: EHOSP SVC: EMERLOCATION: [id number] PHYSICIAN:ANN-MARIE NUMBER: [id number] OF SURGERY/PROCEDURE: 05/20/2018PREOPERATIVE DIAGNOSIS: Food bolus in the esophagus.POSTOPERATIVE DIAGNOSIS:1. Food bolus found in the proximal esophagus and removed.2. Otherwise normal esophagus.3. Normal stomach.4. Normal duodenum.SURGEON: Cheryl Shaikh M.D.REVERSAL PRINT INSPECTOR:SURGERY/PROCE DURE: Esophagogastroduodenoscopy with foreign body removal.ANESTHESIA: Please see Anesthesia notes.INDICATIONS: The patient was at the [employer] last night, whileeating a hot dog, and [...] and get referral to GI physician.Cheryl Shaikh M.D.JH:[id number] #: [id number]: 05/20/2018 19:49:23 cc:* PCP Normal [facility] Surgical Tissue Examon 05-20 Surgical Tissue Exam Test performed at A [address] [address]QAAG: GINNY CARL [id number] REQUESTING: FRITZ ANGELES D.O.COPY TO: CHERYL SHAIKHFINESE DIAGNOSIS:A) DISTAL ESOPHAGUS, BIOPSY - SQUAMOUS MUCOSA [...] totally submitted in one cassette. Levelsx 3. ARH:lobo STEPHENS M.D., PATHOLOGIST(Electronic signature on file)Signed out: 05/23/2018 18:15PRINTED: 05/23/2018 Page 1 of 1 Normal [facility] Comment on above: Performed By: #### S URG ####[place] [id number] Vital Signs Date Time Vital Sign Value Performing Clinician Facility 04-24-2025 13:32-0400 Body mass index (BMI) [Ratio] 32.35 kg/m2 Tuan Puentes APRN.LADLE FILLER Work Phone: [facility] 04-24-2025 13:32-0400 Body temperature 98.49 [degF] Tuan Puentes PROMOTIONS ASSISTANT.LADLE FILLER Work Phone: [facility] 04-24-2025 13:32-0400 Body weight 111.22 kg Tuan Puentes PROMOTIONS ASSISTANT.LADLE FILLER Work Phone: [facility] 04-24-2025 13:32-0400 Diastolic blood pressure 84 mm[Hg] Tuan Puentes PROMOTIONS ASSISTANT.LADLE FILLER Work Phone: [facility] 04-24-2025 13:32-0400 Heart rate 89 /min Tuan Puentes PROMOTIONS ASSISTANT.LADLE FILLER Work Phone: [facility] 04-24-2025 13:32-0400 SaO2% (BldA) [Mass fraction] 99 % Tuan Puentes PROMOTIONS ASSISTANT.LADLE FILLER Work Phone: [facility] 04-24-2025 13:32-0400 Systolic blood pressure 118 mm[Hg] Tuan Puentes PROMOTIONS ASSISTANT.LADLE FILLER Work Phone: [facility] 01-28-2025 15:30-0400 Diastolic blood pressure 72 mm[Hg] Kenisha Newby MD Work Phone: [facility] 01-28-2025 15:30-0400 Heart rate 76 /min Kenisha Newby MD Work Phone: [facility] 01-28-2025 15:30-0400 Respiratory rate 18 /min Kenisha Newby MD Work Phone: [facility] 01-28-2025 15:30-0400 SaO2% (BldA) [Mass fraction] 98 % Kenisha Newby MD Work Phone: [facility] 01-28-2025 15:30-0400 Systolic blood pressure 120 mm[Hg] Kenisha Newby MD Work Phone: [facility] 01-28-2025 15:12-0400 Body temperature 97.2 [degF] Kenisha Newby MD Work Phone: [facility] 01-28-2025 14:29-0400 Body height 185.4 cm Kenisha Newby MD Work Phone: [facility] 01-28-2025 14:29-0400 Body mass index (BMI) [Ratio] 31.93 kg/m2 Kenisha Newby MD Work Phone: [facility] 01-28-2025 14:29-0400 Body weight 109.77 kg Kenisha Newby MD Work Phone: [facility] 01-07-2025 14:42-0400 Body mass index (BMI) [Ratio] 33.64 kg/m2 Simba Horton DO Work Phone: [facility] 01-07-2025 14:42-0400 Body temperature 97.11 [degF] Simba Horton DO Work Phone: [facility] 01-07-2025 14:42-0400 Body weight 115.67 kg Simba Horton DO Work Phone: [facility] 01-07-2025 14:42-0400 Diastolic blood pressure 80 mm[Hg] Simba Horton DO Work Phone: [facility] 01-07-2025 14:42-0400 Heart rate 64 /min Simba Horton DO Work Phone: [facility] 01-07-2025 14:42-0400 Respiratory rate 20 /min Simba Horton DO Work Phone: [facility] 01-07-2025 14:42-0400 Systolic blood pressure 130 mm[Hg] Simba Horton DO Work Phone: [facility] 12-07-2024 14:03-0400 Body mass index (BMI) [Ratio] 32.26 kg/m2 [facility]IST[facility].PHOTOGRAPHER LITHOGRAPHIC Work Phone: [facility] 12-07-2024 14:03-0400 Body weight 110.9 [facility] PROMOTIONS ASSISTANT.PHOTOGRAPHER LITHOGRAPHIC Work Phone: [facility] 12-07-2024 14:03-0400 Diastolic blood pressure 74 mm[Hg] [facility] PROMOTIONS ASSISTANT.PHOTOGRAPHER LITHOGRAPHIC Work Phone: [facility] 12-07-2024 14:03-0400 Heart rate 78 /min [facility] PROMOTIONS ASSISTANT.PHOTOGRAPHER LITHOGRAPHIC Work Phone: [facility] 12-07-2024 14:03-0400 Respiratory rate 16 /min [facility] PROMOTIONS ASSISTANT.PHOTOGRAPHER LITHOGRAPHIC Work Phone: [facility] 12-07-2024 14:03-0400 Systolic blood pressure 136 mm[Hg] [facility] PROMOTIONS ASSISTANT.PHOTOGRAPHER LITHOGRAPHIC Work Phone: [facility] 11-27-2024 18:00-0400 Body temperature 98.6 [degF] Dr. Simba Horton DO Work Phone: [facility] 11-27-2024 18:00-0400 Diastolic blood pressure 86 mm[Hg] Dr. iSmba Horton DO Work Phone: [facility] 11-27-2024 18:00-0400 Heart rate 79 /min Dr. Simba Horton DO Work Phone: [facility] 11-27-2024 18:00-0400 Respiratory rate 15 /min Dr. Simba Horton DO Work Phone: [facility] 11-27-2024 18:00-0400 SaO2% (BldA) [Mass fraction] 100 % Dr. Simba Horton DO Work Phone: [facility] 11-27-2024 18:00-0400 Systolic blood pressure 132 mm[Hg] Dr. Simba Horton DO Work Phone: [facility] 11-27-2024 15:36-0400 Body height 185.[address] Simba Horton DO Work Phone: [facility] 11-27-2024 15:36-0400 Body mass index (BMI) [Ratio] 32.8 kg/m2 Dr. Simab Horton DO Work Phone: [facility] 11-27-2024 15:36-0400 Body weight 113.[address] Simba Horton DO Work Phone: [facility] 11-19-2024 08:00-0400 Diastolic blood pressure 85 mm[Hg] Vi Trevino Jr., DO Work Phone: [facility] 11-19-2024 08:00-0400 Heart rate 79 /min Vi Trevino Jr., DO Work Phone: [facility] 11-19-2024 08:00-0400 Respiratory rate 18 /min Vi Trevino Jr., DO Work Phone: [facility] 11-19-2024 08:00-0400 SaO2% (BldA) [Mass fraction] 96 % Vi Trevino Jr., DO Work Phone: [facility] 11-19-2024 08:00-0400 Systolic blood pressure 125 mm[Hg] Vi Trevino Jr., DO Work Phone: [facility] 11-19-2024 07:00-0400 Body height 185.4 cm Vi Trevino Jr., DO Work Phone: [facility] 11-19-2024 07:00-0400 Body mass index (BMI) [Ratio] 32.72 kg/m2 Vi Trevino Jr., DO Work Phone: [facility] 11-19-2024 07:00-0400 Body temperature 98.8 [degF] Vi Trevino Jr., DO Work Phone: [facility] 11-19-2024 07:00-0400 Body weight 112.49 kg Vi Trevino Jr., DO Work Phone: [facility] 11-05-2024 15:33-0400 Body mass index (BMI) [Ratio] 34.78 kg/m2 Shelly Broderick PROMOTIONS ASSISTANT.LADLE FILLER Work Phone: [facility] 11-05-2024 15:33-0400 Body weight 119.57 kg Shelly Broderick PROMOTIONS ASSISTANT.LADLE FILLER Work Phone: [facility] 11-05-2024 15:33-0400 Diastolic blood pressure 80 mm[Hg] Shelly Broderick PROMOTIONS ASSISTANT.LADLE FILLER Work Phone: [facility] 11-05-2024 15:33-0400 Heart rate 76 /min Shelly Broderick PROMOTIONS ASSISTANT.LADLE FILLER Work Phone: [facility] 11-05-2024 15:33-0400 Respiratory rate 12 /min Shelly Broderick PROMOTIONS ASSISTANT.LADLE FILLER Work Phone: [facility] 11-05-2024 15:33-0400 SaO2% (BldA) [Mass fraction] 98 % Shelly Broderick PROMOTIONS ASSISTANT.LADLE FILLER Work Phone: [facility] 11-05-2024 15:33-0400 Systolic blood pressure 140 mm[Hg] Shelly Broderick PROMOTIONS ASSISTANT.LADLE FILLER Work Phone: [facility] 09-16-2024 02:01-0500 Body temperature 98.6 [degF] Dr. Simba Horton DO Work Phone: [facility] 09-16-2024 02:01-0500 Diastolic blood pressure 84 mm[Hg] Dr. Simba Horton DO Work Phone: [facility] 09-16-2024 02:01-0500 Heart rate 71 /min Dr. Simba Horton DO Work Phone: [facility] 09-16-2024 02:01-0500 Respiratory rate 18 /min Dr. Simba Horton DO Work Phone: [facility] 09-16-2024 02:01-0500 SaO2% (BldA) [Mass fraction] 99 % Dr. Simba Horton DO Work Phone: [facility] 09-16-2024 02:01-0500 Systolic blood pressure 128 mm[Hg] Dr. Simba Horton DO Work Phone: [facility] 09-15-2024 23:46-0500 Body mass index (BMI) [Ratio] 34.2 kg/m2 Dr. Simba Horton DO Work Phone: [facility] 09-15-2024 23:46-0500 Body weight 117.[address] Simba Horton DO Work Phone: [phone] [place] [address] 07-25-2024 13:03-0500 Body mass index (BMI) [Ratio] 33.16 kg/m2 Simba Horton DO Work Phone: [facility] 07-25-2024 13:03-0500 Body temperature 97.7 [degF] Simba Horton DO Work Phone: [facility] 07-25-2024 13:03-0500 Body weight 114 kg Simba Horton DO Work Phone: [facility] 07-25-2024 13:03-0500 Diastolic blood pressure 80 mm[Hg] Simba Cruzon DO Work Phone: [facility] 07-25-2024 13:03-0500 Heart rate 88 /min Simba Cruzon DO Work Phone: [facility] 07-25-2024 13:03-0500 Respiratory rate 16 /min Simba Cruzon DO Work Phone: [facility] 07-25-2024 13:03-0500 Systolic blood pressure 138 mm[Hg] Simba Horton DO Work Phone: [facility] 06-26-2024 09:52-0400 Body mass index (BMI) [Ratio] 33.3 kg/m2 Mattie Henson APRN.LADLE FILLER Work Phone: [facility] 06-26-2024 09:52-0400 Body temperature 98.1 [degF] Mattie Henson APRN.LADLE FILLER Work Phone: [facility] 06-26-2024 09:52-0400 Body weight 114.5 kg Mattie Henson APRN.LADLE FILLER Work Phone: [facility] 06-26-2024 09:52-0400 Diastolic blood pressure 88 mm[Hg] Mattie Henson APRN.LADLE FILLER Work Phone: [facility] 06-26-2024 09:52-0400 Heart rate 74 /min Mattie Henson APRN.LADLE FILLER Work Phone: [facility] 06-26-2024 09:52-0400 Respiratory rate 16 /min Mattie Henson APRN.LADLE FILLER Work Phone: [facility] 06-26-2024 09:52-0400 SaO2% (BldA) [Mass fraction] 96 % Mattie Henson APRN.LADLE FILLER Work Phone: [facility] 06-26-2024 09:52-0400 Systolic blood pressure 132 mm[Hg] Mattie Henson APRN.LADLE FILLER Work Phone: [facility] 06-12-2024 09:00-0400 Diastolic blood pressure 73 mm[Hg] Loraine Da Silva MD Work Phone: [facility] 06-12-2024 09:00-0400 Heart rate 83 /min Loraine Da Silva MD Work Phone: [facility] 06-12-2024 09:00-0400 Respiratory rate 16 /min Loraine Da Silva MD Work Phone: [facility] 06-12-2024 09:00-0400 SaO2% (BldA) [Mass fraction] 94 % Loraine Da Silva MD Work Phone: [facility] 06-12-2024 09:00-0400 Systolic blood pressure 113 mm[Hg] Loraine Da Silva MD Work Phone: [facility] 06-12-2024 08:30-0400 Body temperature 97.5 [degF] Loraine Da Silva MD Work Phone: [facility] 06-12-2024 07:42-0400 Body height 185.4 cm Loraine Da Silva MD Work Phone: [facility] 06-12-2024 07:42-0400 Body mass index (BMI) [Ratio] 30.34 kg/m2 Loraine Da Silva MD Work Phone: [facility] 06-12-2024 07:42-0400 Body weight 104.33 kg Loraine Da Silva MD Work Phone: [facility] 05-01-2024 08:46-0400 Body height 188 cm Simba Horton DO Work Phone: [facility] 05-01-2024 08:46-0400 Body mass index (BMI) [Ratio] 31.2 kg/m2 Simba Horton DO Work Phone: [facility] 05-01-2024 08:46-0400 Body temperature 97 [degF] Simba Horton DO Work Phone: [facility] 05-01-2024 08:46-0400 Body weight 110.22 kg Simba Horton DO Work Phone: [facility] 05-01-2024 08:46-0400 Diastolic blood pressure 80 mm[Hg] Simba Horton DO Work Phone: [facility] 05-01-2024 08:46-0400 Heart rate 80 /min Simba Horton DO Work Phone: [facility] 05-01-2024 08:46-0400 Respiratory rate 16 /min Simba Horton DO Work Phone: [facility] 05-01-2024 08:46-0400 Systolic blood pressure 124 mm[Hg] Simba Horton DO Work Phone: [facility] 04-18-2024 10:59-0400 Body mass index (BMI) [Ratio] 31.79 kg/m2 Sweetie Podlogar PROMOTIONS ASSISTANT.LADLE FILLER Work Phone: [facility] 04-18-2024 10:59-0400 Body weight 109.3 kg Sweetie Podlogar PROMOTIONS ASSISTANT.LADLE FILLER Work Phone: [facility] 04-18-2024 10:59-0400 Diastolic blood pressure 84 mm[Hg] Sweetie Podlogar PROMOTIONS ASSISTANT.LADLE FILLER Work Phone: [facility] 04-18-2024 10:59-0400 Heart rate 91 /min Sweetie Podlogar PROMOTIONS ASSISTANT.LADLE FILLER Work Phone: [facility] 04-18-2024 10:59-0400 Respiratory rate 18 /min Sweetie Podlogar PROMOTIONS ASSISTANT.LADLE FILLER Work Phone: [facility] 04-18-2024 10:59-0400 SaO2% (BldA) [Mass fraction] 98 % Sweetie Podlogar PROMOTIONS ASSISTANT.LADLE FILLER Work Phone: [facility] 04-18-2024 10:59-0400 Systolic blood pressure 122 mm[Hg] Sweetie Podlogar PROMOTIONS ASSISTANT.LADLE FILLER Work Phone: [facility] 03-20-2024 08:30-0400 Diastolic blood pressure 66 mm[Hg] Loraine Da Silva MD Work Phone: [facility] 03-20-2024 08:30-0400 Heart rate 73 /min Loraine Da Silva MD Work Phone: [facility] 03-20-2024 08:30-0400 Respiratory rate 16 /min Loraine Da Silva MD Work Phone: [facility] 03-20-2024 08:30-0400 SaO2% (BldA) [Mass fraction] 99 % Loraine DaS ilva MD Work Phone: [facility] 03-20-2024 08:30-0400 Systolic blood pressure 115 mm[Hg] Loraine Da Silva MD Work Phone: [facility] 03-20-2024 08:00-0400 Body temperature 97 [degF] Loraine Da Silva MD Work Phone: [facility] 03-20-2024 07:21-0400 Body height 185.4 cm Loraine Da Silva MD Work Phone: [facility] 03-20-2024 07:21-0400 Body mass index (BMI) [Ratio] 30.34 kg/m2 Loraine Da Silva MD Work Phone: [facility] 03-20-2024 07:21-0400 Body weight 104.33 kg Loraine Da Silva MD Work Phone: [facility] 03-16-2024 14:52-0400 Body height 185.[address] [facility] Comment on above: pt rpt 03-16-2024 14:52-0400 Body mass index (BMI) [Ratio] 30.08 kg/m2 [facility] 03-16-2024 14:52-0400 Body weight 103.[address] [facility] Comment on above: pt rpt 12-20-2023 08:00-0400 Diastolic blood pressure 70 mm[Hg] Isai Martinez MD Work Phone: [facility] 12-20-2023 08:00-0400 Heart rate 79 /min Isai Martinez MD Work Phone: [facility] 12-20-2023 08:00-0400 Respiratory rate 18 /min Isai Martinez MD Work Phone: [facility] 12-20-2023 08:00-0400 SaO2% (BldA) [Mass fraction] 95 % Isai Martinez MD Work Phone: [facility] 12-20-2023 08:00-0400 Systolic blood pressure 115 mm[Hg] Isai Martinez MD Work Phone: [facility] 12-20-2023 07:50-0400 Body temperature 96.8 [degF] Isai Martinez MD Work Phone: [facility] 12-20-2023 07:02-0400 Body height 185.4 cm Isai Martinez MD Work Phone: [facility] 12-20-2023 07:02-0400 Body mass index (BMI) [Ratio] 30.08 kg/m2 Isai Martinez MD Work Phone: [facility] 12-20-2023 07:02-0400 Body weight 103.42 kg Isai Martinez MD Work Phone: [facility] 12-13-2023 15:20-0400 Body height 185.4 cm Pac 2 Work Phone: [facility] 12-13-2023 15:20-0400 Body weight 103.42 kg Pac 2 Work Phone: [facility] 12-02-2023 11:03-0400 Body weight 105.05 kg Shelly Broderick PROMOTIONS ASSISTANT.LADLE FILLER Work Phone: [facility] 12-02-2023 11:03-0400 Diastolic blood pressure 74 mm[Hg] Shelly Broderick PROMOTIONS ASSISTANT.LADLE FILLER Work Phone: [facility] 12-02-2023 11:03-0400 Heart rate 60 /min Shelly Broderick PROMOTIONS ASSISTANT.LADLE FILLER Work Phone: [facility] 12-02-2023 11:03-0400 Respiratory rate 12 /min Shelly Broderick PROMOTIONS ASSISTANT.LADLE FILLER Work Phone: [facility] 12-02-2023 11:03-0400 Systolic blood pressure 138 mm[Hg] Shelly Broderick PROMOTIONS ASSISTANT.LADLE FILLER Work Phone: [facility] 10-11-2023 10:23-0500 Body temperature 99.7 [degF] Cynthia Mahoney PROMOTIONS ASSISTANT.LADLE FILLER Work Phone: [facility] 10-11-2023 10:23-0500 Body weight 104.24 kg Cynthia Mahoney PROMOTIONS ASSISTANT.LADLE FILLER Work Phone: [facility] 10-11-2023 10:23-0500 Diastolic blood pressure 80 mm[Hg] Cynthia Praisler-Wood PROMOTIONS ASSISTANT.LADLE FILLER Work Phone: [facility] 10-11-2023 10:23-0500 Heart rate 87 /min Cynthia Praisler-Wood PROMOTIONS ASSISTANT.LADLE FILLER Work Phone: [facility] 10-11-2023 10:23-0500 Respiratory rate 16 /min Cynthia Praisler-Wood PROMOTIONS ASSISTANT.LADLE FILLER Work Phone: [facility] 10-11-2023 10:23-0500 SaO2% (BldA) [Mass fraction] 96 % Cynthia Praisler-Wood PROMOTIONS ASSISTANT.LADLE FILLER Work Phone: [facility] 10-11-2023 10:23-0500 Systolic blood pressure 122 mm[Hg] Cynthia Praisler-Wood PROMOTIONS ASSISTANT.[facility] Work Phone: [facility] 10-04-2023 11:06-0500 Heart rate 62 /min [facility] 10-04-2023 09:46-0500 Body height 185.42 cm [facility] 10-04-2023 09:46-0500 Body mass index (BMI) [Ratio] 30.6 kg/m2 [facility] 10-04-2023 09:46-0500 Body temperature 97.4 [degF] [facility] 10-04-2023 09:46-0500 Body weight 105.18 kg [facility] 10-04-2023 09:46-0500 Diastolic blood pressure 91 mm[Hg] [facility] 10-04-2023 09:46-0500 Respiratory rate 18 /min [facility] 10-04-2023 09:46-0500 SaO2% (BldA) [Mass fraction] 100 % [facility] 10-04-2023 09:46-0500 Systolic blood pressure 142 mm[Hg] [facility] 08-02-2023 18:22-0500 Body temperature 97.9 [degF] Yesica Diaz PA-C Work Phone: [facility] 08-02-2023 18:22-0500 Body weight 108.86 kg Yesica Athy PA-C Work Phone: [facility] 08-02-2023 18:22-0500 Diastolic blood pressure 80 mm[Hg] Yesica Athy PA-C Work Phone: [facility] 08-02-2023 18:22-0500 Heart rate 80 /min Yesica Athy PA-C Work Phone: [facility] 08-02-2023 18:22-0500 Respiratory rate 16 /min Yesica Athy PA-C Work Phone: [facility] 08-02-2023 18:22-0500 SaO2% (BldA) [Mass fraction] 99 % Yesica Athy PA-C Work Phone: [facility] 08-02-2023 18:22-0500 Systolic blood pressure 128 mm[Hg] Yesica Athy PA-C Work Phone: [facility] 08-01-2023 15:50-0500 Body height 185.4 cm Robi Hendrickson MD Work Phone: [facility] 08-01-2023 15:50-0500 Body temperature 97.9 [degF] Robi Hendrickson MD Work Phone: [facility] 08-01-2023 15:50-0500 Body weight 108.68 kg Robi Hendrickson MD Work Phone: [facility] 08-01-2023 15:50-0500 Diastolic blood pressure 68 mm[Hg] Robi Hendrickson MD Work Phone: [facility] 08-01-2023 15:50-0500 Heart rate 77 /min Robi Hendrickson MD Work Phone: [facility] 08-01-2023 15:50-0500 SaO2% (BldA) [Mass fraction] 97 % Robi Hendrickson MD Work Phone: [facility] 08-01-2023 15:50-0500 Systolic blood pressure 134 mm[Hg] Robi Hendrickson MD Work Phone: [facility] 07-19-2023 15:50-0500 Diastolic blood pressure 66 mm[Hg] Loraine Da Silva MD Work Phone: [facility] 07-19-2023 15:50-0500 Heart rate 78 /min Loraine Da Silva MD Work Phone: [facility] 07-19-2023 15:50-0500 Respiratory rate 16 /min Loraine Da Silva MD Work Phone: [facility] 07-19-2023 15:50-0500 SaO2% (BldA) [Mass fraction] 97 % Loraine Da Silva MD Work Phone: [facility] 07-19-2023 15:50-0500 Systolic blood pressure 120 mm[Hg] Loraine Da Silva MD Work Phone: [facility] 07-19-2023 15:27-0500 Body temperature 97.9 [degF] Loraine Da Silva MD Work Phone: [facility] 07-19-2023 14:14-0500 Body height 182.9 cm Loraine Da Silva MD Work Phone: [facility] 07-19-2023 14:14-0500 Body weight 105.69 kg Loraine Da Silva MD Work Phone: [facility] 07-04-2023 08:52-0500 Body weight 112.04 kg Tiffanie Norwood MD Work Phone: [facility] 07-04-2023 08:52-0500 Diastolic blood pressure 82 mm[Hg] Tiffanie Norwood MD Work Phone: [facility] 07-04-2023 08:52-0500 Heart rate 79 /min Tiffanie Norwood MD Work Phone: [facility] 07-04-2023 08:52-0500 Respiratory rate 17 /min Tiffanie Norwood MD Work Phone: [facility] 07-04-2023 08:52-0500 SaO2% (BldA) [Mass fraction] 96 % Tiffanie Norwood MD Work Phone: [facility] 07-04-2023 08:52-0500 Systolic blood pressure 132 mm[Hg] Tiffanie Norwood MD Work Phone: [facility] 04-26-2023 07:44-0400 Body height 184 cm Simba Horton DO Work Phone: [facility] 04-26-2023 07:44-0400 Body temperature 97.5 [degF] Simba Horton DO Work Phone: [facility] 04-26-2023 07:44-0400 Body weight 114.76 kg Simba Horton DO Work Phone: [facility] 04-26-2023 07:44-0400 Diastolic blood pressure 80 mm[Hg] Simba Horton DO Work Phone: [facility] 04-26-2023 07:44-0400 Heart rate 64 /min Simba Horton DO Work Phone: [facility] 04-26-2023 07:44-0400 Respiratory rate 16 /min Simba Horton DO Work Phone: [facility] 04-26-2023 07:44-0400 Systolic blood pressure 110 mm[Hg] Simba Horton DO Work Phone: [facility] 03-29-2023 16:40-0400 Diastolic blood pressure 62 mm[Hg] Loraine Da Silva MD Work Phone: [facility] 03-29-2023 16:40-0400 Heart rate 72 /min Loraine Da Silva MD Work Phone: [facility] 03-29-2023 16:40-0400 Respiratory rate 18 /min Loraine Da Silva MD Work Phone: [facility] 03-29-2023 16:40-0400 SaO2% (BldA) [Mass fraction] 97 % Loraine Da Silva MD Work Phone: [facility] 03-29-2023 16:40-0400 Systolic blood pressure 132 mm[Hg] Loraine Da Silva MD Work Phone: [facility] 03-29-2023 16:13-0400 Body temperature 96.8 [degF] Loraine Da Silva MD Work Phone: [facility] 03-29-2023 14:54-0400 Body height 185.4 cm Loraine Da Silva MD Work Phone: [facility] 03-29-2023 14:54-0400 Body weight 117.94 kg Loraine Da Silva MD Work Phone: [facility] 02-02-2023 12:19-0400 Body temperature 97.9 [degF] Sweetie Podlogar PROMOTIONS ASSISTANT.LADLE FILLER Work Phone: [facility] 02-02-2023 12:19-0400 Body weight 114.13 kg Sweetie Podlogar PROMOTIONS ASSISTANT.LADLE FILLER Work Phone: [facility] 02-02-2023 12:19-0400 Diastolic blood pressure 84 mm[Hg] Sweetie Podlogar PROMOTIONS ASSISTANT.LADLE FILLER Work Phone: [facility] 02-02-2023 12:19-0400 Heart rate 87 /min Sweetie Podlogar PROMOTIONS ASSISTANT.LADLE FILLER Work Phone: [facility] 02-02-2023 12:19-0400 Respiratory rate 18 /min Sweetie Podlogar PROMOTIONS ASSISTANT.LADLE FILLER Work Phone: [facility] 02-02-2023 12:19-0400 SaO2% (BldA) [Mass fraction] 99 % Sweetie Podlogar PROMOTIONS ASSISTANT.LADLE FILLER Work Phone: [facility] 02-02-2023 12:19-0400 Systolic blood pressure 114 mm[Hg] Sweetie Podlogar PROMOTIONS ASSISTANT.LADLE FILLER Work Phone: [facility] 01-31-2023 10:23-0400 Body temperature 97.5 [degF] Isis Petty PROMOTIONS ASSISTANT.LADLE FILLER Work Phone: [facility] 01-31-2023 10:23-0400 Body weight 115.21 kg Isis Petty PROMOTIONS ASSISTANT.LADLE FILLER Work Phone: [facility] 01-31-2023 10:23-0400 Diastolic blood pressure 82 mm[Hg] Isis Petty PROMOTIONS ASSISTANT.LADLE FILLER Work Phone: [facility] 01-31-2023 10:23-0400 Heart rate 78 /min Isis Petty PROMOTIONS ASSISTANT.LADLE FILLER Work Phone: [facility] 01-31-2023 10:23-0400 Respiratory rate 18 /min Isis Petty PROMOTIONS ASSISTANT.LADLE FILLER Work Phone: [facility] 01-31-2023 10:23-0400 SaO2% (BldA) [Mass fraction] 96 % Isis Petty PROMOTIONS ASSISTANT.LADLE FILLER Work Phone: [facility] 01-31-2023 10:23-0400 Systolic blood pressure 128 mm[Hg] Isis Petty PROMOTIONS ASSISTANT.LADLE FILLER Work Phone: [facility] 12-13-2022 11:45-0400 Body height 185.4 cm Shelly Broderick PROMOTIONS ASSISTANT.LADLE FILLER Work Phone: [facility] 12-13-2022 11:45-0400 Body weight 119.3 kg Shelly Broderick PROMOTIONS ASSISTANT.LADLE FILLER Work Phone: [facility] 12-13-2022 11:45-0400 Diastolic blood pressure 84 mm[Hg] Shelly Broderick PROMOTIONS ASSISTANT.LADLE FILLER Work Phone: [facility] 12-13-2022 11:45-0400 Heart rate 92 /min Shelly Broderick PROMOTIONS ASSISTANT.LADLE FILLER Work Phone: [facility] 12-13-2022 11:45-0400 Respiratory rate 12 /min Shelly Broderick PROMOTIONS ASSISTANT.LADLE FILLER Work Phone: [facility] 12-13-2022 11:45-0400 SaO2% (BldA) [Mass fraction] 97 % Shelly Broderick PROMOTIONS ASSISTANT.LADLE FILLER Work Phone: [facility] 12-13-2022 11:45-0400 Systolic blood pressure 140 mm[Hg] Shelly Broderick PROMOTIONS ASSISTANT.LADLE FILLER Work Phone: [facility] 12-06-2022 07:43-0400 Body height 185.4 cm Shelly Broderick PROMOTIONS ASSISTANT.LADLE FILLER Work Phone: [facility] 12-06-2022 07:43-0400 Body weight 116.12 kg Shelly Broderick PROMOTIONS ASSISTANT.LADLE FILLER Work Phone: [facility] 12-06-2022 07:43-0400 Diastolic blood pressure 74 mm[Hg] Shelly Broderick PROMOTIONS ASSISTANT.LADLE FILLER Work Phone: [facility] 12-06-2022 07:43-0400 Heart rate 75 /min Shelly Broderick PROMOTIONS ASSISTANT.LADLE FILLER Work Phone: [facility] 12-06-2022 07:43-0400 Respiratory rate 16 /min Shelly Broderick PROMOTIONS ASSISTANT.LADLE FILLER Work Phone: [facility] 12-06-2022 07:43-0400 Systolic blood pressure 118 mm[Hg] Shelly Broderick PROMOTIONS ASSISTANT.LADLE FILLER Work Phone: [facility] 12-05-2022 17:28-0400 Body temperature 97.6 [degF] [facility] 12-05-2022 17:28-0400 Diastolic blood pressure 110 mm[Hg] [facility] 12-05-2022 17:28-0400 Heart rate 97 /min [facility] 12-05-2022 17:28-0400 Respiratory rate 18 /min [facility] 12-05-2022 17:28-0400 Systolic blood pressure 173 mm[Hg] [facility] 12-05-2022 17:26-0400 Body height 185.42 cm [facility] 12-05-2022 17:26-0400 Body mass index (BMI) [Ratio] 34.2 kg/m2 [facility] 12-05-2022 17:26-0400 Body weight 117.93 kg [facility] [facility]22 20:37-0400 Diastolic blood pressure 97 mm[Hg] [facility] 11-07-2022 20:37-0400 Systolic blood pressure 145 mm[Hg] [facility] 11-07-2022 18:15-0400 Body height 185.42 cm [facility] 11-07-2022 18:15-0400 Body mass index (BMI) [Ratio] 33.7 kg/m2 [facility] 11-07-2022 18:15-0400 Body temperature 98.2 [degF] [facility] 11-07-2022 18:15-0400 Body weight 116.11 kg [facility] 11-07-2022 18:15-0400 Heart rate 100 /min [facility] 11-07-2022 18:15-0400 Respiratory rate 18 /min [facility] 11-07-2022 18:15-0400 SaO2% (BldA) [Mass fraction] 100 % [facility] 11-02-2022 16:40-0500 Diastolic blood pressure 52 mm[Hg] Yasmine Diaz MD Work Phone: [facility] 11-02-2022 16:40-0500 Heart rate 78 /min Yasmine Diaz MD Work Phone: [facility] 11-02-2022 16:40-0500 Respiratory rate 16 /min Yasmine Diaz MD Work Phone: [facility] 11-02-2022 16:40-0500 SaO2% (BldA) [Mass fraction] 96 % Yasmine Diaz MD Work Phone: [facility] 11-02-2022 16:40-0500 Systolic blood pressure 95 mm[Hg] Yasmine Daiz MD Work Phone: [facility] 11-02-2022 16:20-0500 Body temperature 97.3 [degF] Yasmine Diaz MD Work Phone: [facility] 11-02-2022 14:58-0500 Body height 185.4 cm Yasmine Diaz MD Work Phone: [facility] 11-02-2022 14:58-0500 Body weight 111.13 kg Yasmine Diaz MD Work Phone: [facility] 05-18-2022 16:40-0400 Diastolic blood pressure 78 mm[Hg] Loraine Da Silva MD Work Phone: [facility] 05-18-2022 16:40-0400 Heart rate 71 /min Loraine Da Silva MD Work Phone: [facility] 05-18-2022 16:40-0400 Respiratory rate 16 /min Loraine Da Silva MD Work Phone: [facility] 05-18-2022 16:40-0400 SaO2% (BldA) [Mass fraction] 96 % Loraine Da Silva MD Work Phone: [facility] 05-18-2022 16:40-0400 Systolic blood pressure 118 mm[Hg] Loraine Da Silva MD Work Phone: [facility] 05-18-2022 16:18-0400 Body temperature 97.81 [degF] Loraine Da Silva MD Work Phone: [facility] 05-18-2022 15:35-0400 Body height 185.4 cm Loraine Da Silva MD Work Phone: [facility] 05-18-2022 15:35-0400 Body weight 106.59 kg Loraine Da Silva MD Work Phone: [facility] 03-08-2022 08:06-0400 Body temperature 96.91 [degF] Mary Bogner PA-C Work Phone: [facility] 03-08-2022 08:06-0400 Body weight 105.69 kg Mary Bogner PA-C Work Phone: [facility] 03-08-2022 08:06-0400 Diastolic blood pressure 74 mm[Hg] Mary Bogner PA-C Work Phone: [facility] 03-08-2022 08:06-0400 Heart rate 67 /min Mary Bogner PA-C Work Phone: [facility] 03-08-2022 08:06-0400 Respiratory rate 21 /min Mary Bogner PA-C Work Phone: [facility] 03-08-2022 08:06-0400 SaO2% (BldA) [Mass fraction] 99 % Mary LARSON-C Work Phone: [facility] 03-08-2022 08:06-0400 Systolic blood pressure 112 mm[Hg] Mary LARSON-C Work Phone: [facility] 01-12-2022 10:45-0400 Body temperature 97.9 [degF] Sammy Pendlebury PROMOTIONS ASSISTANT.LADLE FILLER Work Phone: [facility] 01-12-2022 10:45-0400 Body weight 106.32 kg Sammy Pendlebury PROMOTIONS ASSISTANT.LADLE FILLER Work Phone: [facility] 01-12-2022 10:45-0400 Diastolic blood pressure 82 mm[Hg] Sammy Pendlebury PROMOTIONS ASSISTANT.LADLE FILLER Work Phone: [facility] 01-12-2022 10:45-0400 Heart rate 79 /min Sammy Pendlebury PROMOTIONS ASSISTANT.LADLE FILLER Work Phone: [facility] 01-12-2022 10:45-0400 Respiratory rate 16 /min Sammy Pendlebury PROMOTIONS ASSISTANT.LADLE FILLER Work Phone: [facility] 01-12-2022 10:45-0400 SaO2% (BldA) [Mass fraction] 98 % [facility] PROMOTIONS ASSISTANT.LADLE FILLER Work Phone: [facility] 01-12-2022 10:45-0400 Systolic blood pressure 124 mm[Hg] [facility] PROMOTIONS ASSISTANT.LADLE FILLER Work Phone: [facility] Encounters Encounter Date Encounter Type Care Provider Facility Start: 08-02-2025 ambulatory Simba Guillermo y:[facility] Start: 07-01-2025 End: 07-01-2025 ambulatory ASHLEE GOODEN Facility:[facility] Start: 06-06-2025 ambulatory SIMBA Quevedo ity:[facility] Start: 05-11-2025 End: 05-11-[address] Simba Horton DO Work Phone: -[facility] Start: 05-11-2025 End: 05-11-[address] Cheryl Kimbrough DPM -[facility] Work Phone: Start: 05-11-2025 End: 05-11-2025 ambulatory Simba Horton Facility:[facility] Start: 05-09-2025 End: 05-13-2025 Refill Robi Hendrickson MD Work Phone: Gastroenterology Comment on above: Refill Request Start: 04-29-2025 End: 04-30-2025 ambulatory Tuan Puentes APRN.LADLE FILLER Work Phone: [facility] Comment on above: Sinus infection Start: 04-24-2025 End: 04-24-2025 Office outpatient visit 15 minutes Tuan Puentes APRN.LADLE FILLER Work Phone: [facility] Comment on above: Acute non-recurrent pansinusitis (Primary Dx); PND (post-nasal drip); Body aches Start: 04-24-2025 End: 04-24-2025 ambulatory TUAN DELORIS Facility:[facility] Start: 04-04-2025 Registered [facility] HEALTH RIS K ASSESSMENT -Health & Wellness Work Phone: Start: 04-04-2025 ambulatory Health Risk Assessment Facility:[facility] Start: 03-14-2025 End: 03-15-2025 Refill Simba Horton DO Work Phone: [facility] Comment on above: Refill Request Start: 03-06-2025 End: 03-06-2025 ambulatory Simba Taylorrison DO Work Phone: [facility] Start: 03-06-2025 End: 03-06-2025 Patient encounter procedure Simba Cruzon DO Work Phone: [facility] Comment on above: [facility] Start: 02-25-2025 End: 02-25-2025 ambulatory Simba Taylorrison DO Work Phone: [facility] [place] Comment on above: Severe Constipation No BM for 2 weeks Start: 01-28-2025 ambulatory ROBI HENDRICKSON Facilit y:[facility] Start: 01-28-2025 End: 01-28-2025 Subsequent hospital visit by physician Kenisha Newby MD Work Phone: Gastroenterology Comment on above: Eosinophilic esophag itis [K20.0] Start: 01-21-2025 End: 01-22-2025 Refill Shelly Broderick PROMOTIONS ASSISTANT.LADLE FILLER Work Phone: [facility] Comment on above: Refill Request Start: 01-08-2025 End: 01-08-2025 ambulatory Simba Cruzon DO Work Phone: [facility] Comment on above: Esophagus Start: 01-07-2025 End: 01-07-2025 Patient encounter procedure Simba L Horton DO Work Phone: [facility] Comment on above: Arthralgia, unspecif ied joint (Primary Dx); Situational anxiety; THA (generalized anxiety disorder); Situational depression; Bilateral leg edema; Eosinophilic esophagitis; Internal hemorrhoids Start: 01-07-2025 End: 01-07-2025 ambulatory SIMBA HORTON Facility:[facility] Start: 12-19-2024 End: 12-19-2024 Orders Only Robi Hendrickson MD Work Phone: Gastroenterology Comment on above: Esophageal dysphagia (Primary Dx) Start: 12-10-2024 End: 12-10-2024 ambulatory Simba L Horton DO Work Phone: [facility] [place] Comment on above: Labs Start: 12-10-2024 End: 02-09-2025 Follow-up encounter Sebas Lawrence APRN.PHOTOGRAPHER LITHOGRAPHIC Work Phone: [facility] [place] Start: 12-10-2024 End: 12-14-2024 Telephone encounter Simba Cruzon DO Work Phone: [facility] Comment on above: question regarding l ab results Start: 12-07-2024 End: 12-07-2024 ambulatory SEBAS LAWRENCE Facility:[facility] Start: 12-07-2024 End: 12-07-2024 Office outpatient visit 25 minutes Sebas Lawrence PROMOTIONS ASSISTANT.PHOTOGRAPHER LITHOGRAPHIC Work Phone: [facility] [place] Comment on above: Chills (without feve r) (Primary Dx); Family history of thyroid disorder; S/P arthroscopic surgery of left knee; Wound infection after surgery; Nausea Start: 12-02-2024 End: 12-03-2024 Refill Shelly Broderick PROMOTIONS ASSISTANT.LADLE FILLER Work Phone: [facility] [place] Comment on above: Refill Request Start: 11-28-2024 End: 11-28-2024 ambulatory Simba Horton DO Work Phone: [facility] Comment on above: Left Knee Start: 11-27-2024 End: 11-27-2024 Emergency department patient visit Dr. Simba Horton DO Work Phone: -Emergency Department Work Phone: Start: 11-27-2024 End: 11-28-2024 Admission to same day surgery center Sibma Horton DO Work Phone: [facility] Comment on above: Left knee surgery Start: 11-27-2024 End: 11-28-2024 ambulatory Simba Horton DO Work Phone: [facility] Start: 11-19-2024 End: 11-19-2024 ambulatory VI TREVINO JR Facility:[facility] Start: 11-19-2024 End: 11-19-2024 Subsequent hospital visit by physician Vi Trevino DO Work Phone: [facility] Comment on above: Rectal bleeding [K62 .5] Start: 11-14-2024 End: 11-14-2024 ambulatory Robi Hendrickson MD Work Phone: Gastroenterology Comment on above: Colonoscopy Prep Start: 11-11-2024 End: 11-12-2024 Refill Robi Hendrickson MD Work Phone: Gastroenterology Comment on above: Refill Request Start: 11-09-2024 ambulatory Joaquín Lopez Facility:[facility] Start: 11-06-2024 End: 11-06-2024 Orders Only Robi Hendrickson MD Work Phone: Gastroenterology Comment on above: Rectal bleeding (Nayana lisseth Dx) Start: 11-05-2024 End: 11-05-2024 Office outpatient visit 15 minutes Shelly Broderick APRN.LADLE FILLER Work Phone: [facility] [place] Comment on above: Blood in stool (Prim mustapha Dx); Situational anxiety Start: 11-05-2024 End: 11-05-2024 ambulatory Simba Carrizales Horton DO Work Phone: [facility] Comment on above: blood in stools Rectal bleeding (Nayana lisseth Dx) Start: 10-31-2024 End: 11-01-2024 Refill Simba Taylorrison DO Work Phone: [facility] Comment on above: Refill Request Start: 09-30-2024 End: 10-01-2024 Refill Simba Carrizales Horton DO Work Phone: [facility] Comment on above: Refill Request Start: 09-18-2024 End: 09-18-2024 ambulatory Simba Carrizales Horton DO Work Phone: [facility] Comment on above: Left knee Start: 09-18-2024 End: 09-19-2024 Telephone encounter Simba Taylorrison DO Work Phone: [facility] [place] Comment on above: Refill Request [...] 08-28-2024 End: 08-28-2024 Patient encounter procedure Davon LARSON [facility] Work Phone: Start: 08-28-2024 End: 08-28-2024 ambulatory Davon LARSON Facility:[facility] Start: 08-27-2024 End: 11-16-2024 Telephone encounter Simba Horton DO Work Phone: [facility] Start: 08-24-2024 End: 08-24-2024 Telephone encounter Robi Hendrickson MD Work Phone: Gastroenterology Comment on above: Medication Problem ( Duxpixent ) Start: 08-13-2024 End: 08-15-2024 Refill Robi Hendrickson MD Work Phone: Gastroenterology Comment on above: Refill Request Results Start: 07-25-2024 End: 07-25-2024 ambulatory SIMBA HORTON Facility:[facility] Start: 07-25-2024 End: 07-25-2024 Patient encounter procedure Simba Sofie Horton DO Work Phone: [facility] Comment on above: Loose stools (Primar y Dx); Situational insomnia; Situational anxiety; Eosinophilic esophagitis; THA (generalized anxiety disorder); Situational depression Start: 07-11-2024 End: 07-11-2024 Emergency department patient visit Shiv Garcia Facility:[facility] Start: 07-06-2024 End: 07-06-2024 ambulatory Robi Hendrickson MD Work Phone: Gastroenterology Comment on above: NO SHOW (Primary Dx) Start: 07-06-2024 End: 07-06-2024 Telemedicine consultation with patient Robi Hendrickson MD Work Phone: Gastroenterology Start: 06-26-2024 End: 06-26-2024 Subsequent hospital visit by physician [facility] [place] Work Phone: Radiology Comment on above: Acute cough [R05.1] Start: 06-26-2024 End: 06-26-2024 Patient encounter procedure Mattie Henson APRKATARZYNA Work Phone: [facility] Comment on above: Acute cough (Primary Dx); Strep throat Start: 06-12-2024 End: 06-12-2024 Subsequent hospital visit by physician Loraine Da Silva MD Work Phone: Gastroenterology Comment on above: Eosinophilic esophag itis [K20.0] Start: 06-11-2024 End: 06-12-2024 ambulatory Robi Hendrickson MD Work Phone: Gastroenterology Comment on above: Esophagus Start: 06-04-2024 End: 06-04-2024 ambulatory Simba Sofie Horton DO Work Phone: [facility] [place] Comment on above: Bee stings Start: 06-04-2024 End: 06-05-2024 Telephone encounter Simba Sofie TaylorHorton DO Work Phone: [facility] [place] Comment on above: Medication Request Start: 05-07-2024 End: 05-08-2024 ambulatory Simba L Horton DO Work Phone: [facility] [place] Comment on above: EMG Start: 05-01-2024 End: 05-01-2024 ambulatory Simba L Horton DO Work Phone: [facility] [place] Comment on above: Medication Start: 05-01-2024 End: 05-07-2024 Telephone encounter Simba L Horton DO Work Phone: [facility] [place] Comment on above: Patient Question Start: 05-01-2024 End: 05-01-2024 Patient encounter procedure Simba L Horton DO Work Phone: [facility] [place] Comment on above: Well adult exam (Nayana lisseth Dx); Acute right-sided low back pain with right-sided sciatica; Situational insomnia; Mild intermittent asthma without complication; Eosinophilic esophagitis; THA (generalized anxiety disorder); Bloating Start: 05-01-2024 End: 05-01-2024 Patient encounter status Simba L Horton DO Work Phone: [facility] Start: 04-26-2024 End: 04-27-2024 Telephone encounter Simba Horton DO Work Phone: [facility] Comment on above: Pharmacy Call Start: 04-25-2024 End: 04-25-2024 Telephone encounter Robi Hendrickson MD Work Phone: Gastroenterology Comment on above: Medication Problem ( Dupixent prior authorization) Start: 04-23-2024 End: 04-23-2024 Refill Simba Horton DO Work Phone: [facility] Comment on above: Refill Request Start: 04-18-2024 End: 04-18-2024 Patient encounter procedure Sweetie Tyson PROMOTIONS ASSISTANT.LADLE FILLER Work Phone: [facility] Comment on above: Numbness and tinglin g of hand (Primary Dx) Start: 03-20-2024 End: 03-20-2024 Subsequent hospital visit by physician Loraine Da Silva MD Work Phone: Gastroenterology Comment on above: Eosinophilic esophag itis [K20.0] Start: 03-16-2024 End: 03-16-2024 [facility] Comment on above: Mild intermittent as thma without complication (Primary Dx); Eosinophilic esophagitis; Obesity, Class I, BMI 30-34.9; THA (generalized anxiety disorder) Start: 03-13-2024 Telephone encounter Simba stacy DO Work Phone: Gastroenterology Comment on above: Appointment Confirma tion Start: 03-07-2024 Telephone encounter Simba stacy DO Work Phone: [facility] [place] Comment on above: Lab Order Request Start: 03-04-2024 ambulatory Simba smith DO Work Phone: [facility] [place] Comment on above: WC Start: 03-02-2024 Telephone encounter Robi claros MD Work Phone: Gastroenterology Start: 02-29-2024 ambulatory Shelly Broderick PROMOTIONS ASSISTANT.LADLE FILLER Work Phone: [facility] [place] Start: 02-29-2024 Patient encounter procedure Shelly Broderick PROMOTIONS ASSISTANT.LADLE FILLER Work Phone: [facility] [place] Comment on above: March 07 Appointment Start: 02-22-2024 ambulatory Robi breen MD Work Phone: Gastroenterology Start: 02-22-2024 Telephone encounter Robi claros MD Work Phone: Gastroenterology Comment on [...] esophag itis [K20.0] Start: 12-15-2023 Refill Simba smith DO Work Phone: [facility] [place] Comment on above: Refill Request Start: 12-13-2023 End: 12-13-2023 Admission to [facility] 2 Work Phone: [place] Start: 12-13-2023 End: 12-13-2023 Preprocedural examination done [facility] 2 Work Phone: [facility] Work Phone: Start: 12-13-2023 End: 12-13-2023 Telephone encounter Mimi Hess RNoutpatient physical therapist Comment on above: Appointment Confirma tion (Pre-procedure instructions for 12/20/23 EGD) Preop examination (P rimary Dx); Mild intermittent asthma without complication; GERD without esophagitis; Chronic gout of multiple sites, unspecified cause; THA (generalized anxiety disorder) Start: 12-09-2023 Telephone encounter Svetlanaroya montiel PA-C Work Phone: Pre Anesthesia Comment on above: No Show Start: 12-07-2023 ambulatory Robi breen MD Work Phone: [facility] Start: 12-07-2023 Anesthesia consultation Robi Hendrickson MD Work Phone: Gastroenterology Comment on above: Pre Anesthesia Video visit Start: 12-02-2023 End: 12-02-2023 Patient encounter procedure Shelly Broderick PROMOTIONS ASSISTANT.LADLE FILLER Work Phone: [facility] Comment on above: Situational anxiety (Primary Dx) Start: 11-11-2023 Telephone encounter Robi claros MD Work Phone: Gastroenterology Start: 11-07-2023 End: 11-07-2023 ambulatory Robi Hendrickson MD Work Phone: Gastroenterology Comment on above: Eosinophilic esophag itis (Primary Dx) Start: 11-07-2023 End: 11-07-2023 Telemedicine consultation with patient Robi Hendrickson MD Work Phone: [facility] Start: 11-07-2023 End: 11-07-2023 ambulatory Robi Hendrickson MD Work Phone: [facility] Work Phone: Comment on above: Instructions Start: 11-07-2023 E-mail encounter william m caregiver Robi Hendrickson MD Work Phone: [facility] Start: 11-07-2023 End: 11-07-2023 Patient encounter procedure [facility] Work Phone: Start: 10-13-2023 Telephone encounter Cynthiadave Evans PROMOTIONS ASSISTANT.LADLE FILLER Work Phone: [facility] Comment on above: Patient Update Patient Question Start: 10-11-2023 Telephone encounter Cynthiadave Evans PROMOTIONS ASSISTANT.LADLE FILLER Work Phone: [facility] Comment on above: Medication Problem Start: 10-11-2023 End: 10-11-2023 Patient encounter procedure Cynthia Mahoney PROMOTIONS ASSISTANT.LADLE FILLER Work Phone: [facility] Comment on above: Flu-like symptoms (P rimary Dx); Sore throat Start: 10-04-2023 End: 10-04-2023 Emergency department patient visit [facility] Work Phone: Start: 08-02-2023 End: 08-02-2023 Patient encounter procedure Yesica Diaz PA-C Work Phone: [facility] Comment on above: Exacerbation of asth ma, unspecified asthma severity, unspecified whether persistent (Primary Dx) Start: 08-02-2023 ambulatory Simba Hall son DO Work Phone: [facility] Comment on above: Asthma Start: 08-01-2023 [...] above: Low testosterone Start: 05-20-2023 Refill Simba smith DO Work Phone: [facility] [place] Comment on above: Refill Request Start: 05-18-2023 Telephone encounter Simba stacy DO Work Phone: [facility] [place] Start: 05-13-2023 Telephone encounter Simba stacy DO Work Phone: [facility] [place] Start: 05-04-2023 ambulatory Simba smith DO Work Phone: [facility] [place] Comment on above: Question regarding T ESTOSTERONE, FREE AND TOTAL Start: 05-04-2023 Telephone encounter Simba stacy DO Work Phone: [facility] [place] Comment on above: Results Start: 04-26-2023 End: 04-26-2023 Patient encounter procedure Simba Horton DO Work Phone: [facility] [place] Comment on above: Well adult exam (Nayana montanez Dx); Acute esophagitis; Eosinophilic esophagitis; Chronic gout of multiple sites, unspecified cause; Chronic pain of both shoulders; Bunion of great toe of left foot Start: 04-26-2023 End: 04-26-2023 Patient encounter status Simba Horton DO Work Phone: [facility] Work Phone: Start: 04-07-2023 ambulatory [facility] Javy Sarmiento Comment on above: fmla papers Start: 04-07-2023 E-mail encounter fro m caregiver [facility] Start: 03-30-2023 ambulatory Simba smith DO Work Phone: [facility] [place] Comment on above: 03/29/23 procedure Refill Request Start: 03-30-2023 Telephone encounter Shelly Cornell son PROMOTIONS ASSISTANT.LADLE FILLER Work Phone: [facility] [place] Comment on above: Appointment fmla forms Start: 03-29-2023 End: 03-29-2023 Subsequent hospital visit by physician Loraine Da Silva MD Work Phone: Gastroenterology Comment on above: Eosinophilic esophag itis [K20.0] Start: 02-14-2023 ambulatory Simba smith DO Work Phone: [facility] Comment on above: sinus Start: 02-02-2023 End: 02-02-2023 Patient encounter procedure Sweetie Tyson PROMOTIONS ASSISTANT.LADLE FILLER Work Phone: [facility] Comment on above: Mild intermittent as thma, uncomplicated (Primary Dx); Acute non-recurrent maxillary sinusitis Start: 01-31-2023 End: 01-31-2023 Patient encounter procedure Isis Petty PROMOTIONS ASSISTANT.LADLE FILLER Work Phone: [facility] Comment on above: Rhinosinusitis (Prim mustapha Dx) Start: 12-16-2022 Telephone encounter Shelly smith PROMOTIONS ASSISTANT.LADLE FILLER Work Phone: [facility] Comment on above: fax copy return to w ork letter Start: 12-13-2022 End: 12-13-2022 Subsequent hospital visit by physician Xr [facility] [place] Work Phone: Radiology Comment on above: Sprain of ligament o f left ankle, subsequent encounter [S93.402D] Start: 12-13-2022 End: 12-13-2022 Patient encounter procedure Shelly Davie PROMOTIONS ASSISTANT.LADLE FILLER Work Phone: [facility] Comment on above: Injury of left ankle , subsequent encounter (Primary Dx); Sprain of ligament of left ankle, subsequent encounter Start: 12-06-2022 ambulatory Shellylisset Broderick PROMOTIONS ASSISTANT.LADLE FILLER Work Phone: [facility] Comment on above: L ankle Start: 12-06-2022 End: 12-06-2022 Patient encounter procedure Shelly Cornellson PROMOTIONS ASSISTANT.LADLE FILLER Work Phone: [facility] Comment on above: Sprain of ligament o f left ankle, subsequent encounter (Primary Dx); Injury of left ankle, subsequent encounter; Elevated BP without diagnosis of hypertension Start: 12-05-2022 End: 12-05-2022 [facility] Start: 11-25-2022 Macrina breen MD Work Phone: Gastroenterology Comment on above: Refill Request Start: 11-18-2022 ambulatory Simba smith DO Work Phone: [facility] Comment on above: Bloating Start: 11-07-2022 End: 11-07-2022 [facility] Start: 11-03-2022 Refill Simba smith DO Work Phone: [facility] Comment on above: Refill Request Start: 11-02-2022 End: 11-02-2022 Subsequent hospital visit by physician Yasmine Diaz MD Work Phone: Gastroenterology Comment on above: Esophagitis, eosinop hilic [K20.0] Start: 10-07-2022 ambulatory Winsome juarez APRN.LADLE FILLER Work Phone: Telemedicine Comment on above: Viral syndrome (Prim mustapha Dx) Start: 09-20-2022 Telephone encounter Simba stacy DO Work Phone: [facility] Comment on above: Forms Start: 06-29-2022 End: 06-29-2022 ambulatory Robi Hendrickson MD Work Phone: Gastroenterology Comment on above: Esophagitis, eosinop hilic (Primary Dx) Start: 06-29-2022 End: 06-29-2022 Telemedicine consultation with patient Robi Hendrickson MD Work Phone: [facility] Start: 05-19-2022 ambulatory [facility]ba smith DO [facility] Comment on above: Wellness Exam Start: 05-18-2022 End: 05-18-2022 Subsequent hospital visit by physician Loraine Da Silva MD Work Phone: Gastroenterology Comment on above: Eosinophilic esophag itis [K20.0] Start: 05-17-2022 Telephone encounter Simba stacy DO Work Phone: [facility] [place] Comment on above: Orders Start: 05-11-2022 Telephone encounter Olesya Chan RN G astroenterology Comment on above: Appointment Confirma tion Start: 04-08-2022 Refill Simba smith DO Work Phone: [facility] [place] Comment on above: Refill Request Start: 03-08-2022 End: 03-08-2022 Office outpatient visit 15 minutes Mary Del Rio PA-C Work Phone: [facility] Comment on above: Diarrhea, unspecifie d type (Primary Dx); URI, acute; Mild intermittent asthma, uncomplicated Start: 01-12-2022 Telephone encounter Sammy recio PROMOTIONS ASSISTANT.LADLE FILLER Work Phone: [facility] Comment on above: Results Start: 01-12-2022 End: 01-12-2022 Patient encounter procedure Sammy Polina PROMOTIONS ASSISTANT.LADLE FILLER Work Phone: [facility] Comment on above: Diarrhea, unspecifie d type (Primary Dx) Start: 12-07-2021 Refill Simba smith DO Work Phone: [facility] [place] Comment on above: Refill Request Start: 05-20-2018 End: 05-20-2018 Emergency department patient visit [facility] Start: 09-22-2012 Patient encounter status Simba Horton DO Work Phone: [facility] Work Phone: Procedures Date Procedure Procedure Detail Performing Clinician Start: 05-11-2025 MRI of lower extremity Dr. Simba Cruz on DO Work Phone: Start: 01-28-2025 Esophagoscp rig transoral hypopharynx crv esoph Robi Hendrickson MD Work Phone: Start: 11-27-2024 X-ray of knee, four or more views Dr. Simba Horton DO Work Phone: Start: 11-19-2024 Colonoscopy flx dx w/collj spec when pfrmd Robi Hendrickson MD Work Phone: Start: 11-19-2024 Colonoscopy Vi Trevino Jr., DO Work Phone: Start: 09-16-2024 X-ray of knee, four or more views Dr. Simba Horton DO Work Phone: Start: 06-26-2024 Radiologic exam chest 2 views Mattie Henson PROMOTIONS ASSISTANT.LADLE FILLER Work Phone: Start: 06-26-2024 STREP A MOLECULAR [...] & INFLUENZA A/B NAAT, ROUTINE Cynthia Mahoney PROMOTIONS ASSISTANT.LADLE FILLER Work Phone: Start: 10-11-2023 STREP A MOLECULAR (POC) [facility] Provider Start: 10-04-2023 CT of head without contrast Start: 07-19-2023 Esophagoscp rig transoral hypopharynx crv raghav Hendrickson MD Work Phone: Start: 04-26-2023 Lipid 1996 panel - Serum or Plasma Simba Horton DO Work Phone: Start: 03-29-2023 Esophagoscp rig transoral hypopharynx crv raghav Hendrickson MD Work Phone: Start: 12-13-2022 Radex ankle complete minimum 3 views Shelly Broderick PROMOTIONS ASSISTANT.LADLE FILLER Work Phone: Start: 12-05-2022 Radiography of ankle Start: 11-02-2022 Esophagoscp rig transoral hypopharynx crv raghav Hendrickson MD Work Phone: Start: 05-18-2022 Esophagoscp rig transoral hypopharynx crv raghav Hendrickson MD Work Phone: Start: 11-18-2021 Adult depression screening assessment Simba Horton DO Work Phone: Start: 01-21-2021 Colonoscopy Simba Horton DO Work Phone: History of operative procedure on knee Status post arthroscopic surgery of left knee Dr. Simba Horton DO Work Phone: History of operative procedure on knee S/P arthroscopic surgery of left knee Sebas Lawrence PROMOTIONS ASSISTANT.PHOTOGRAPHER LITHOGRAPHIC Work Phone: Plan of Treatment Date Care Activity Detail Author Start: 11-19-2034 Screening for malignant neoplasm of colon [facility] Start: 01-21-2031 Colonoscopy COLONOSCOPY [facility] Start: 01-21-2031 COLORECTAL CANCER SCREENING COLORECTAL CANCER SCREENING [facility] Start: 01-21-2031 Screening for malignant neoplasm of colon [facility] Start: 09-17-2029 Urine microalbumin profile [facility] Start: 04-26-2028 Lipid 1996 panel - Serum or Plasma Lipid Screening [facility] Start: 04-26-2028 Lipid panel Lipid Screening [facility] Start: 04-26-2028 LIPID SCREEN LIPID SCREEN [facility] Start: 04-24-2026 Annual PCP Team Chronic Disease Visit Annual PCP Team Chronic Disease Visit [facility] Start: 01-07-2026 Annual PCP Team Chronic Disease Visit Annual PCP Team Chronic Disease Visit [facility] Start: 11-05-2025 Annual PCP Team Chronic Disease Visit Annual PCP Team Chronic Disease Visit [facility] Start: 10-31-2025 LIPID SCREEN LIPID SCREEN [facility] Start: 07-25-2025 Annual PCP Team Chronic Disease Visit Annual PCP Team Chronic Disease Visit [facility] Start: 07-25-2025 Covid-19 Vaccine ( season) Covid-19 Vaccine ( season) [facility] Comment on above: Postponed from 04/29/2024 (Declined at t his time) Start: 07-10-2025 End: 07-10-2025 Patient encounter procedure 07/10/2025 3:40 PM EST Office Visit [facility] [place] [address] [place] [address] Simba Horton DO [address] [place] [address] 6 month follow up [facility] [place] Comment on above: 6 month follow up Start: 05-01-2025 Annual PCP Team Chronic Disease Visit Annual PCP Team Chronic Disease Visit [facility] Start: 04-29-2025 Influenza vaccination [facility] Start: 04-18-2025 Annual PCP Team Chronic Disease Visit Annual PCP Team Chronic Disease Visit [facility] Start: 02-25-2025 Influenza vaccination Influenza Vaccine (#1) [facility] Comment on above: Postponed from 04/29/2024 (Declined at t his time) Start: 01-28-2025 End: 01-28-2025 Patient encounter procedure 01/28/2025 4:00 PM EDT Appointment Gastroenterology [address] [address] Kenisha Newby MD [address] [address] Eosinophilic esophagitis [K20.0] Gastroenterology Comment on above: Eosinophilic esophagitis [K20.0] Start: 01-14-2025 End: 01-14-2025 ambulatory 01/14/2025 3:30 PM EDT Results Only [facility] [address] [facility] [place] [address] [facility] Start: 01-13-2025 End: 04-14-2025 CBC W Auto Differential panel - Blood COMPLETE BLOOD COUNT AND DIFFERENTIAL Lab Routine Leukocytosis, unspecified type Expected: 01/13/2025, Expires: 04/14/2025 [facility] Work Phone: Comment on above: Expected: 01/13/2025, Expires: Start: 01-07-2025 End: 01-07-2025 Patient encounter procedure 01/07/2025 3:00 PM EDT Office Visit [facility] [place] [address] [place], [place] [address] Simba Horton DO [address] [place], [place] [id number] 6 month follow up [facility] Comment on above: 6 month follow up Start: 12-07-2024 End: 03-08-2025 CBC W Auto Differential panel - Blood [facility] Work Phone: Comment on above: Expected: 12/07/2024, Expires: Start: 12-07-2024 End: 03-08-2025 Comprehensive metabolic 2000 panel - Serum or Plasma [facility] Comment on above: Expected: 12/07/2024, Expires: Start: 12-07-2024 End: 03-08-2025 TSH W/REFLEX FT4 [facility] Comment on above: Expected: 12/07/2024, Expires: Start: 12-01-2024 Annual PCP Team Chronic Disease Visit Annual PCP Team Chronic Disease Visit [facility] Start: 12-01-2024 Covid-19 Vaccine () Covid-19 Vaccine () [facility] Comment on above: Postponed from 04/29/2023 (Declined at t his time) Start: 12-01-2024 Hepatitis B Vaccine (1 of 3 - 19+ 3-dose series) Hepatitis B Vaccine (1 of 3 - 19+ 3-dose series) [facility] Comment on above: Postponed from 2002 (Declined at t his time) Start: 11-27-2024 [facility] Start: 11-19-2024 End: 11-19-2024 Patient encounter procedure [facility] Comment on above: 11/16/24 LVM/MC to confirm arrival time/l oc. D.S. Start: 11-10-2024 End: 11-10-2024 Anesthesia consultation 11/10/2024 11:59 PM EDT Anesthesia Event [facility] [address] [place] [id number] Vick Plata APRN.CRNA [facility] Start: 11-05-2024 End: 11-05-2024 Patient encounter procedure 11/05/2024 3:40 PM EDT Office Visit Family [facility] [address] [place] [address] Shelly Broderick, PROMOTIONS ASSISTANT.LADLE FILLER [address] [place], [place] [address] blood in stool [facility] Comment on above: blood in stool Start: 11-05-2024 End: 02-04-2025 CBC panel - Blood by Automated count COMPLETE BLOOD COUNT Lab Routine Rectal bleeding Expected: 11/05/2024, Expires: 02/04/2025 [facility] Work Phone: Comment on above: Expected: 11/05/2024, Expires: Start: 09-16-2024 [facility] Start: 08-28-2024 End: 08-28-2024 Patient encounter procedure 08/28/2024 9:00 AM EST Office Visit [facility] [address] [place], [place] [phone] Tuan Puentes, PROMOTIONS ASSISTANT.LADLE FILLER [address] [place] [address] Osteoarthritis in knee/leg---UPDATE INS [facility] Comment on above: Osteoarthritis in knee/leg---UPDATE INS Start: 07-25-2024 End: 07-25-2024 Patient encounter procedure 07/25/2024 1:20 PM EST Office Visit [facility] [address] [place] [address] Simba Horton DO [address] [place] [address] R & L knee [facility] Comment on above: R & L knee Start: 07-23-2024 End: 07-23-2024 Follow-up encounter 07/23/2024 4:00 PM EST [facility] Gastroenterology [address] [address] Robi Hendrickson MD [address] [place], [place] [phone] Follow up on Dupixent,MyChart request Gastroenterology Comment on above: Follow up on Dupixent,MyChart request Start: 07-06-2024 End: 07-06-2024 Follow-up encounter 07/06/2024 3:30 PM [facility] Gastroenterology [address] [address] Robi Hendrickson MD [address] [place] [address] Follow up on Dupixent,MyChart request Gastroenterology Comment on above: Follow up on Dupixent,MyChart request Start: 06-12-2024 End: 06-12-2024 Patient encounter procedure 06/12/2024 8:00 AM EDT Appointment Gastroenterology [address] [address] Loraine Da Silva MD [address] [place], [place] [phone] Biopsies of the proximal and distal esophagus, dilation if needed Gastroenterology Comment on above: Biopsies of the proximal and distal esop hagus, dilation if needed Start: 05-11-2024 End: 05-11-2024 ambulatory 05/11/2024 10:00 AM EDT Procedure Neurology 1 [place] [address] Ulnar Nerve (STANDARD) Neurology Comment on above: Ulnar Nerve (STANDARD) Start: 05-07-2024 End: 05-07-2024 ambulatory 05/07/2024 8:15 AM EDT Procedure Neurology 1 [place] [address] Numbness and tingling of hand [R20.0, R20.2] Neurology Comment on above: Numbness and tingling of hand [R20.0, R2 0.2] Start: 05-01-2024 End: 07-31-2024 Hemoglobin A1c in Blood [facility] Work Phone: Comment on above: Expected: 05/01/2024, Expires: Start: 05-01-2024 End: 07-31-2024 TESTOSTERONE, FREE AND TOTAL [facility] Comment on above: Expected: 05/01/2024, Expires: Start: 05-01-2024 End: 05-01-2024 Patient encounter procedure 05/01/2024 9:00 AM EDT Office Visit [facility] [place] [address] [place] [address] Simba Horton DO [address] [facility] [place] [address] Wellness check [facility] [place] Comment on above: Wellness check Start: 04-29-2024 Covid-19 Vaccine ( season) Covid-19 Vaccine ( season) [facility] Start: 04-29-2024 Covid-19 Vaccine ( season) Covid-19 Vaccine ( season) [facility] Start: 04-29-2024 Influenza vaccination [facility] Start: 04-26-2024 ANNUAL PCP TEAM CHRONIC DISEASE VISIT ANNUAL PCP TEAM CHRONIC DISEASE VISIT [facility] Start: 04-26-2024 COVID-19 VACCINE (#1) COVID-19 VACCINE (#1) [facility] Comment on above: Postponed from 1983 (Declined at t his time) Start: 04-06-2024 End: 04-06-2024 Follow-up encounter 04/06/2024 4:30 PM EDT [facility] Gastroenterology [address] [address] Robi Hendrickson MD [address] [place] [address] Follow Up Eosinophilic esophagitis Gastroenterology Comment on above: Follow Up Eosinophilic esophagitis Start: 03-20-2024 End: 03-20-2024 Patient encounter procedure 03/20/2024 7:30 AM EDT Appointment Gastroenterology [address] [address] Loraine Da Silva MD [address] [place], [place] [phone] Eosinophilic esophagitis [K20.0]w Dilation/Esophageal biopsies, dilation with 20mm [facility] Comment on above: Eosinophilic esophagitis [K20.0]w Dilati on/Esophageal biopsies, dilation with 20mm [facility] Start: 03-16-2024 End: 03-16-2024 Anesthesia consultation 03/16/2024 3:00 PM EDT PAT Pre Anesthesia [address] [place] [address] EGD 03/20 Pre Anesthesia Comment on above: EGD 03/20 Start: 03-07-2024 End: 03-07-2024 Patient encounter procedure 03/07/2024 4:20 PM EDT Office Visit [facility] [place] [address] [place], [place] [address] Shelly Broderick APRN.LADLE FILLER [address] [place] [address] 3 month f/up [facility] [place] Comment on above: 3 month f/up Start: 02-14-2024 End: 02-14-2024 ambulatory 02/14/2024 4:00 PM EDT [facility] Gastroenterology [address] [address] Robi Hendrickson MD [address] [place] [address] F/up EoE Gastroenterology Comment on above: F/up EoE Start: 02-03-2024 ANNUAL PCP TEAM CHRONIC DISEASE VISIT ANNUAL PCP TEAM CHRONIC DISEASE VISIT [facility] Start: 10-04-2023 [facility] Start: 05-04-2023 End: 07-04-2023 TESTOSTERONE, FREE AND TOTAL TESTOSTERONE, FREE AND TOTAL Lab Routine Testosterone deficiency Expected: 05/04/2023, Expires: 07/04/2023 [facility] Work Phone: Comment on above: Expected: 05/04/2023, Expires: Start: 04-29-2023 Covid-19 Vaccine () Covid-19 Vaccine () [facility] Start: 04-29-2023 Influenza vaccination [facility] Start: 04-26-2023 End: 06-26-2023 Hemoglobin A1c in Blood [facility] Work Phone: Comment on above: Expected: 04/26/2023, Expires: 3 Start: 04-26-2023 End: 06-26-2023 TESTOSTERONE, FREE AND TOTAL [facility] Work Phone: Comment on above: Expected: 04/26/2023, Expires: 3 Start: 11-18-2022 Adult depression screening assessment DEPRESSION SCREENING [facility] Start: 11-18-2022 COVID-19 VACCINE (#1) COVID-19 VACCINE (#1) [facility] Comment on above: Postponed from 01/31/1988 (Declined at t his time) Postponed from 08/01 (Declined at this time) Start: 11-18-2022 COVID-19 VACCINE (1) COVID-19 VACCINE (1) [facility] Comment on above: Postponed from 01/31/1988 (Declined at t his time) Start: 04-29-2022 Influenza vaccination [facility] Start: 2010 HPV Vaccine (1 - 3-dose SCDM series) HPV Vaccine (1 - 3-dose SCDM series) [facility] Start: 2002 Hepatitis B Vaccine (1 of 3 - 19+ 3-dose series) Hepatitis B Vaccine (1 of 3 - 19+ 3-dose series) [facility] Start: 2001 HIV SCREENING HIV SCREENING [facility] Start: 2001 HIV screening HIV Screening [facility] Start: 2001 SPIROMETRY SPIROMETRY [facility] Start: 1989 PNEUMOCOCCAL (1 - PCV) PNEUMOCOCCAL (1 - PCV) [facility] Start: 1989 Pneumococcal vaccination Pneumococcal Vaccine (1 - PCV) [facility] Start: 1983 COVID-19 VACCINE (#1) COVID-19 VACCINE (#1) [facility] Start: 1983 HEPATITIS B (1 of 3 - 3-dose series) HEPATITIS B (1 of 3 - 3-dose series) [facility] Start: 1983 Hepatitis B Vaccine (1 of 3 - 3-dose series) Hepatitis B Vaccine (1 of 3 - 3-dose series) [facility] End: 06-29-2023 EGD - THERAPEUTIC, EUS, OR TUBE INTERVENTIONS EGD - THERAPEUTIC, EUS, OR TUBE INTERVENTIONS Endoscopy Routine Esophagitis, eosinophilic 1 Occurrences starting 06/29/2022 until 06/29/2023 [facility] Work Phone: Comment on above: 1 Occurrences starting 06/29/2022 until 06/29/2023 End: 11-06-2024 EGD - THERAPEUTIC, EUS, OR TUBE INTERVENTIONS EGD - THERAPEUTIC, EUS, OR TUBE INTERVENTIONS Endoscopy Routine Eosinophilic esophagitis 1 Occurrences starting 11/07/2023 until 11/06/2024 [facility] Work Phone: Comment on above: 1 Occurrences starting 11/07/2023 until 11/06/2024 End: 02-13-2025 EGD - THERAPEUTIC, EUS, OR TUBE INTERVENTIONS EGD - THERAPEUTIC, EUS, OR TUBE INTERVENTIONS Endoscopy Routine Eosinophilic esophagitis 1 Occurrences starting 02/14/2024 until 02/13/2025 [facility] Work Phone: Comment on above: 1 Occurrences starting 02/14/2024 until 02/13/2025 End: 04-18-2025 EMG(NEURO/NI) EMG(NEURO/NI) EMG Routine Numbness and tingling of hand 1 Occurrences starting 04/18/2024 until 04/18/2025 [facility] Work Phone: Comment on above: 1 Occurrences starting 04/18/2024 until 04/18/2025 ENTERIC BACTERIAL PANEL BY PCR ENTERIC BACTERIAL PANEL BY PCR Lab Routine Loose stools 07/25/2024 2:16 PM EST [facility] Work Phone: End: 11-06-2025 Flexible sigmoidoscopy study COLONOSCOPY DIAGNOSTIC Endoscopy Routine Rectal bleeding 1 Occurrences starting 11/06/2024 until 11/06/2025 [facility] Work Phone: Comment on above: 1 Occurrences starting 11/06/2024 until 11/06/2025 Helicobacter pylori Ag [Presence] in Stool by Immunoassay HELICOBACTER PYLORI ANTIGEN BY EIA, STOOL Microbiology Routine Loose stools 07/25/2024 2:16 PM EST [facility] OCCULT BLD EXAM-DIAG OCCULT BLD EXAM-DIAG Microbiology Routine Blood in stool Ordered: 11/05/2024 [facility] Work Phone: Comment on above: Ordered: 11/05/2024 PANC ELASTASE, FECAL PANC ELASTA SE, FECAL Lab Routine Loose stools 07/25/2024 2:16 PM EST [facility] Patient Education [facility] Work Phone: Patient referral [facility] Work Phone: SARS-CoV-2 (COVID-19 ) RNA [Presence] in Respiratory specimen by JOY with probe detection 2019 CORONAVIRUS Microbiology Routine Diarrhea, unspecified type URI, acute 03/08/2022 8:23 AM EDT [facility] Work Phone: SURGICAL PATHOLOGY [facility] Work Phone: Comment on above: Release Upon Ordering for 1 Occurrences starting 05/18/2022, 1 completed SURGICAL PATHOLOGY [facility] Work Phone: Comment on above: Release Upon Ordering for 1 Occurrences starting 11/02/2022, 1 completed SURGICAL PATHOLOGY [facility] Work Phone: Comment on above: Release Upon Ordering for 1 Occurrences starting 03/29/2023, 1 completed SURGICAL PATHOLOGY [facility] Work Phone: Comment on above: Release Upon Ordering for 1 Occurrences starting 07/19/2023, 1 completed SURGICAL PATHOLOGY [facility] Work Phone: Comment on above: Release Upon Ordering for 1 Occurrences starting 03/20/2024, 1 completed SURGICAL PATHOLOGY [facility] Work Phone: Comment on above: Release Upon Ordering for 1 Occurrences starting 06/12/2024, 1 completed TESTOSTERONE, FREE A ND TOTAL TESTOSTERONE, FREE AND TOTAL Lab Routine Testosterone deficiency 05/05/2023 4:08 PM EDT [facility] Work Phone: End: 01-12-2024 XR ANKLE GENERAL 3V AP/LAT/OBL LEFT XR ANKLE GENERAL 3V AP/LAT/OBL LEFT Radiology Routine Sprain of ligament of left ankle, subsequent encounter Injury of left ankle, subsequent encounter 1 Occurrences starting 12/13/2022 until 01/12/2024 [facility] Work Phone: Comment on above: 1 Occurrences starting 12/13/2022 until 01/12/2024 XR ANKLE GENERAL 3V AP/LAT/OBL LEFT XR ANKLE GENERAL 3V AP/LAT/OBL LEFT Radiology Routine Sprain of ligament of left ankle, subsequent encounter Injury of left ankle, subsequent encounter 12/13/2022 12:31 PM EDT [facility] Work Phone: End: 01-18-2026 XR Esophagus Views W contrast PO XR ESOPHAGRAM Radiology Routine Esophageal dysphagia 1 Occurrences starting 12/19/2024 until 01/18/2026 [facility] Work Phone: Comment on above: 1 Occurrences starting 12/19/2024 until 01/18/2026 [facility] Immunizations Immunization Date Immunization Notes Care Provider Fa vicki 09-17-2019 tetanus toxoid, redu toney diphtheria toxoid, and acellular pertussis vaccine, adsorbed Simba Horton DO Work Phone: [facility] 08-13-2019 influenza, injectabl e, quadrivalent, contains preservative Simba Horton DO Work Phone: [facility] Work Phone: 08-13-2019 influenza virus vaccine, unspecified formulation Simba Horton DO Work Phone: [facility] Payers Date Payer Category Payer Private Health Insurance [id number] 2024 Unknown [id number] 2024 Medicaid [id number] 2024 Self-pay [id number] 2021 Private Health Insurance JACK OROZCO OAP [id number] 2021-Present [phone] [address] [place] [address] Open Access [id number] 2021 Unknown [employer] BLUE CARD PPO OOS [id number] 2021-Present [phone] [address] [place] [address] PPO [id number] 2021 Unknown [id number] 2018 Private Health Insurance [id number] 2018 Unknown [id number] 2013 Unknown [id number] 1983 Unknown [id number] Private Health Insurance [id number] Unknown [id number] Unknown [id number] Unknown [id number] Unknown [id number] Unknown [id number] Unknown [id number] Unknown [id number] Unknown [id number] Unknown [id number] Social History Date Type Detail Facility Start: 08-05-2014 End: 11-27-2024 Tobacco smoking status NHIS Never smoked tobacco [facility] Start: 11-18-2021 End: 04-24-2025 Alcohol intake Current drinker of alcohol (finding) [facility] Start: 11-18-2021 End: 02-02-2023 Alcohol intake [facility] Start: 03-09-2020 End: 02-01-2022 History SDOH Alcohol Frequency 4 [facility] Start: 03-09-2020 End: 12-05-2022 History SDOH Alcohol Std Drinks 2 [facility] Start: 03-09-2020 End: 12-05-2022 History SDOH Alcohol Binge 3 [facility] Start: 03-09-2020 End: 12-05-2022 History SDOH Social Connections Membership 1 [facility] Start: 03-09-2020 History SDOH Social Connections Living 8 [facility] Start: 03-09-2020 End: 12-05-2022 History SDOH Physical Activity DPW 5 [facility] Start: 03-08-2020 Education 21 [facility] Start: 1985 Sex Assigned At Not on file C [facility] Start: 11-08-2021 End: 05-18-2022 Exposure to SARS-CoV-2 (event) Not sure [facility] Work Phone: Start: 02-01-2022 History SDOH Physica l Activity DPW 6 [facility] Start: 02-01-2022 End: 12-05-2022 History SDOH Physical Activity MPS 7 [facility] Start: 08-05-2014 Tobacco use and exposure Smoke less tobacco non-user [facility] Start: 11-02-2022 Alcohol Comment occasional alcohol u se [facility] Start: 11-07-2022 End: 10-04-2023 Tobacco smoking status NHIS Unknown if ever smoked [facility] Start: 1985 Sex Assigned At Male W [facility] Start: 12-05-2022 History SDOH Physica l Activity MPS 15 [facility] Start: 12-05-2022 End: 02-02-2023 Social connection and isolation panel [facility] Do you belong to any clubs or organizations such as presybeterian groups, unions, fraternal or athletic groups, or school groups? Yes [facility] Are you now , , , , never or living with a partner? [facility] How often to you hav e a drink containing alcohol? 2-4 times a month [facility] How many standard dr inks containing alcohol do you have on a typical day? 1 or 2 [facility] How often do you hav e 6 or more drinks on 1 occasion? Less than monthly [facility] Start: 07-30-2012 How hard is it for y ou to pay for the very basics like food, housing, medical care, and heating Not hard at all [facility] Do you feel stress - tense, restless, nervous, or anxious, or unable to sleep at night because your mind is troubled all the time - these days [OSQ] Not at all [facility] (I/We) worried wheth er (my/our) food would run out before (I/we) got money to buy more. Never true [facility] In the past 12 month s, was there a time when you were not able to pay the mortgage or rent on time? No [facility] Start: 03-23-2023 Gender identity Identifies as male gender (finding) [facility] How many standard dr inks containing alcohol do you have on a typical day? 3 or 4 [facility] How often do you hav e 6 or more drinks on 1 occasion? Monthly [facility] How hard is it for y ou to pay for the very basics like food, housing, medical care, and heating Somewhat hard [facility] Do you feel stress - tense, restless, nervous, or anxious, or unable to sleep at night because your mind is troubled all the time - these days [OSQ] Very much [facility] (I/We) worried wheth er (my/our) food would run out before (I/we) got money to buy more. Sometimes true [facility] Start: 11-27-2024 Sex Male (finding) [facility] Start: 01-28-2025 Alcohol Comment a few drinks a week [facility] How often to you hav e a drink containing alcohol? Monthly or less [facility] How often do you hav e 6 or more drinks on 1 occasion? Never [facility] Do you feel stress - tense, restless, nervous, or anxious, or unable to sleep at night because your mind is troubled all the time - these days [OSQ] To some extent [facility] Functional Status Date Assessment Result Facility 04-24-2025 Total score [AUDIT-C] 1 04/24/20 9:31 AM EDT User, Ramakrishna [facility] 04-24-2025 How often to you hav e a drink containing alcohol? Monthly or less 04/24/2025 9:31 AM EDT User, Ramakrishna Monthly or less [facility] 04-24-[address] inks containing alcohol do you have on a typical day? 1 or 2 04/24/2025 9:31 AM EDT User, Joaquint 1 or 2 [facility] 04-24-2025 How often do you hav e 6 or more drinks on 1 occasion? Never 04/24/2025 9:31 AM EDT User, Joaquint Never [facility] 11-20-2014 Are you deaf, or do you have serious difficulty hearing No 11/20/2014 10:49 AM Charlette Cunningham RN No [facility] 11-20-2014 Are you blind, or do you have serious difficulty seeing, even when wearing glasses No 11/20/2014 10:49 AM Charlette Cunningham, YAS No [facility] 11-20-2014 Do you have serious difficulty walking or climbing stairs No 11/20/2014 10:49 AM Charlette Cunningham, RN No [facility] 11-20-2014 Do you have difficul ty dressing or bathing No 11/20/2014 10:49 AM Charlette Cunningham, RN No [facility] 11-20-2014 Because of a physica l, mental, or emotional condition, do you have difficulty doing errands alone such as visiting a physician's office or shopping No 11/20/2014 10:49 AM EDT Charlette Dsouza RN No [facility] Mental Status Date Assessment Result Facility 11-27-2024 Cognitive function Level Of Cons ciousness Awake;Alert;Appropriate;Fol lows Commands [facility] Work Phone: 11-20-2014 Because of a physica l, mental, or emotional condition, do you have serious difficulty concentrating, remembering, or making decisions No 11/20/2014 10:49 AM EDT Charlette Dsouza RN No [facility] Clinical Notes 11-19-2020 to 07-01-2025 Telephone Encounter - Falguni Moralez - 05/13/2025 8:49 AM EDTTelephone Encounter - Falguni Moralez - 05/13/2025 8:49 AM Tuan Galindo APRN.LADLE FILLER - 04/24/2025 2:03 PM EDT Note Date & Type Note Facility 07-01-2025 Note HNO ID: [id number] Author: ASHLEE GOODEN APRN.LADLE FILLER Service: ? Author Type: Nurse Practitioner Type: Progress Notes Filed: 07/01/2025 16:47 Note Text: This is a 40 year old male who presents today with: Sinus infection HISTORY OF PRESENT ILLNESS: Carl Gross is a 40-year-old male presenting with worsening URI symptoms. URI Symptoms: - Symptoms worsened on Tuesday after 3 weeks of intermittent allergy-like symptoms. - Denies fever. - Reports body aches. - Denies rhinorrhea; unable to blow much out. - Productive cough, mostly in the mornings, described as deep and barky. - Sputum is yellow with some red. - Denies dyspnea. - Taking NyQuil for symptom relief. - Reports fullness and tenderness in the upper sinuses. - Ears are popping. - Mild sore throat. - had similar symptoms and is recovering. - Doxycycline has been effective for past sinus infections - taking tessalon perles for cough and it's been effective PAST MEDICAL HISTORY: PAST MEDICAL HISTORY Diagnosis Date Acute right-sided [...] OF Right 12/05/2023 arthroscopic knee- meniscus repair PAST SURGICAL HISTORY OF 01/2025 EGD PAST SURGICAL HISTORY OF gallbladder removed SINUS SURGERY HX 2016 ALLERGIES Bee Sting and Dermabond [2-Octyl Cyanoacrylate] MEDICATIONS Current Outpatient Medications Medication Sig furosemide (LASIX) 20 mg tablet TAKE 1 TABLET BY MOUTH ONCE DAILY NEEDED FOR LEG EDEMA. dupilumab (DUPIXENT PEN) 300 mg/2 mL pen injection Inject 300 mg subcutaneously one time a week. For eosinophilic esophagitis; ICD10 = K20.0 traZODone (DESYREL) 100 mg tablet TAKE 1 [...] tablet by mouth once daily. For gout. EPINEPHrine (EPIPEN) 0.3 mg/0.3 mL auto-injector Inject [...] (FLONASE) 50 mcg/actuation nasal spray Use 1 [place] in each nostril daily at bedtime. montelukast (SINGULAIR) 10 mg tablet Take 1 tablet by mouth daily at bedtime. amino acids (BCAA ORAL) Take by mouth once daily. cetirizine (ZYRTEC) 10 mg tablet Take 10 mg by mouth once daily. doxycycline (VIBRA-TABS) 100 mg tablet Take 1 tablet by mouth two times a day for 7 days. No current facility-administered medications for this visit. FAMILY HISTORY Problem Relation Age of Onset Cancer Mother thyroid Cancer Father thyroid? Cancer Maternal Grandmother thyroid Hypertension Maternal Grandmother Hypertension Maternal Grandfather Anesthesia Problems No Family History Clotting Disorder No Family History Malig Hyperthermia No Family History SOCIAL HISTORY[1] REVIEW OF SYSTEMS Constitutional: (-) fever Head: (+) facial fullness, (+) facial tenderness Ears/Nose/Mouth/Throat: (+) ear popping, (+) sore throat, (-) nasal drainage Respiratory: (+) cough, (+) yellow sputum, (-) shortness of breath Musculoskeletal: (+) myalgia See HPI EXAM: BP 124/72 (BP Site: Left Arm, BP Position: Sitting, BP Cuff Size: Large Adult) Pulse 82 Temp 36.9 ?C (98.4 ?F) Resp 16 Wt 114.2 kg (251 lb 12.8 oz) SpO2 99% BMI 33.22 kg/m? PHYSICAL EXAM: General Appearance: Well appearing, alert, in no acute distress, well-hydrated, well nourished.. Skin: Skin color, texture, turgor normal, no suspicious rashes or lesions. Ears: External ears normal, canals clear. Nose/Sinuses: Nares normal, septum midline, mucosa normal, no drainage. Frontal sinus tenderness. Oropharynx: Lips, mucosa, and tongue normal, teeth and gums no (more content not included)... [facility] 05-13-2025 Telephone encounter Note Last visit 07/06/24; EGD 01/28/25 Falguni Moralez [facility] 05-13-2025 Miscellaneous Notes Last visit 07/06/24; EGD 01/28/25 Falguni Moralez documented in this encounter [facility] 05-12-2025 Radiology Diagnostic study note [facility] Imaging Services [address] [place] [address] Extremity Lower without Contra MR#: [id number] Acct: [id number] Name: CARL GROSS Rep #: [id number] : 1985 M 40 From: Nabeel Goddard MD PCP: Dr. Simba Horton DO Status: RE G CLI Study:Extremity Lower without Contra Date of Exam: 05/11/25 Exam# [id number] Ordering Dr: George Kimbrough DPM PROCEDURE: EXTREMITY LOWER WITHOUT CONTRA 05/11/2025 REASON FOR EXAM: L FOOT PAIN Foot pain TECHNIQUE: Procedure Code: CTELWO Modality: CT Procedure: EXTREMITY LOWER WITHOUT CONTRA Coronal and Sagittal reconstruction series were provided. CONTRAST: None One or more dose reduction techniques were used (e.g., Automated exposure control, adjustment of the mA and/or kV according to patient size, use of iterative reconstruction technique). RADIATION DOSE SUMMARY: CTDlvol: 15.4 mGy DLP: 522.6 mGycm COMPARISON: None FINDINGS: Bones: Mild spurring of the calcaneus. Distal tibia and fibula negative. Hindfoot negative. No fractures. Tarsals negative. Metatarsals and phalanges negative. Joints: Degenerative changes of the 1st metatarsophalangeal joint. Soft Tissues: Soft tissues negative. No radiopaque foreign body. CT/Extremity Lower without Contra IMPRESSION: Negative for acute abnormality of the left foot. No evidence of fracture. Reading Location: [id number] CC: MAGALIE Kimbrough; Dr. Simba Horton DO ~ Anatomic Pathology Manager: Signed [facility] 04-30-2025 Telephone encounter Note The following approved medication requests have been transmitted electronically. Requested Prescriptions Signed Prescriptions Disp Refills doxycycline hyclate (VIBRAMYCIN) 100 mg capsule 20 capsule 0 Sig: Take 1 capsule by mouth two times a day for 10 days. Tuan Puentes APRN.CNP [facility] 04-30-2025 Miscellaneous Notes The following approved medication requests have been transmitted electronically. Requested Prescriptions Signed Prescriptions Disp Refills doxycycline hyclate (VIBRAMYCIN) 100 mg capsule 20 capsule 0 Sig: Take 1 capsule by mouth two times a day for 10 days. Tuan Puentes APRN.CNP documented in this encounter [facility] 04-24-2025 Note HNO ID: [id number] Author: TUAN PUENTES APRN.CNP Service: ? Author Type: Nurse Practitioner Type: Progress Notes Filed: 04/24/2025 14:15 Note Text: 04/24/2025 Recording using Arrayent software for draft documentation of the visit was discussed with the patient/authorized installation service representative; all questions welcomed and answered. 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 montelukast [...] be effective, but (more content not included)... [facility] 04-24-2025 History of Present illness Narrative 04/24/2025 Recording using Arrayent software for draft documentation of the visit was discussed with the patient/authorized installation service representative; all questions welcomed and answered. 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 montelukast [...] Tuan Puentes APRN.CNP documented in this encounter [facility] 03-15-2025 Telephone encounter Note PDMP website checked and [...] 30 days. Authorizing Provider: SHELLY BRODERICK APRN.CNP [facility] 03-15-2025 Miscellaneous Notes PDMP website checked and [...] 2025 8:32 AM documented in this encounter [facility] 03-14-2025 Telephone encounter Note Prescription Refill Information [...] Morelos LPN March 14, 2025 9:31 AM [facility] 03-14-2025 Miscellaneous Notes Prescription Refill Information The [...] 2025 9:31 AM documented in this encounter [facility] 03-14-2025 Telephone encounter Note Prescription Refill Information [...] Chang MA March 14, 2025 8:32 AM [facility] 03-06-2025 Telephone encounter Note Per office note [...] FUROSEMIDE 20 MG TABLET Orin Dillon MA [facility] 03-06-2025 Miscellaneous Notes Per office note 01/07 [...] Orin Dillon MA documented in this encounter [facility] 02-26-2025 Telephone encounter Note Images from the original note were not included. Per pt's MyChart msg last evening: Carl Zepeda Wstr Famp My Chart Rx Pool (supporting Simba Horton DO) AC 02/25/25 5:05 PM I was able to go this afternoon by taking a bit more laxative. I will continue to monitor. I was not able to do a virtual visit today. [facility] 02-26-2025 Miscellaneous Notes Images from the original note were not included. Per pt's MyChart msg last evening: Carl Grsos to P Wstr Famp My Chart Rx [...] a triage nurse to go over his [employer] message about not having a BM in 2 weeks. Becca Trujillo RN Left vm for patient to return call to triage nurse for questions regarding his MC message. No BM in 2 weeks. documented in this encounter [facility] 02-25-2025 Telephone encounter Note Called and left a voicemail for the Patient to call back and ask for a triage nurse to go over his [employer] message about not having a BM in 2 weeks. Becca Trujillo RN [facility] 02-25-2025 Telephone encounter Note Left vm for patient to return call to triage nurse for questions regarding his MC message. No BM in 2 weeks. [facility] 02-25-2025 Telephone encounter Note Added patient to triage schedule Orin Dillon MA [facility] 02-25-2025 Miscellaneous Notes Added patient to triage schedule Orin Dillon MA documented in this encounter [facility] 01-28-2025 History and physical note PROCEDURAL SEDATION [...] knee- meniscus repair SINUS SURGERY HX 2016 Prior to Admission medications as of 12/07/24 [...] (FLONASE) 50 mcg/actuation nasal spray Use 1 [place] in each nostril daily at bedtime. montelukast [...] January 28, 2025 TIME: 2:08 PM 2023 [facility] Work Phone: 01-28-2025 History and physical note [...] (FLONASE) 50 mcg/actuation nasal spray Use 1 [place] in each nostril daily at bedtime. montelukast [...] 2:08 PM 2023 documented in this encounter [facility] 01-28-2025 Nurse Note AMBULATORY PATIENT EDUCATION NOTE [...] None Electronically Signed By: Carrillo Delgado RN [facility] 01-28-2025 Nurse Note AMBULATORY PATIENT EDUCATION NOTE [...] Dr Newby spoke to patient Carl and Marizol prior to being discharged from unit PRE [...] In Department: GASTROENTEROLOGY documented in this encounter [facility] 01-28-2025 Note HNO ID: [id number] Author: CARRILLO DELGADO RN Service: Gastroenterology Author Type: Registered Nurse Type: Nursing Progress Note Filed: 01/28/2025 15:31 Note Text: Dr Newby spoke to patient Carl and Marizol prior to being discharged from unit [facility] 01-28-[address] Newby spoke to patient Carl and Marizol prior to being discharged from unit [facility] 01-28-2025 Note Q3 Patient Name: Carl Gross Procedure Date: 01/28/2025 2:02 PM Date of : 1985 Admit Type: Outpatient Age: 39 Gender: Male Note Status: Finalized Attending MD: Kenisha Newby MD, [id number] Procedure: Upper GI endoscopy Indications: Dysphagia, Follow-up [...] the patient. Procedure Code(s): --- Professional --- 71973, Esophagogastroduodenoscopy, flexible, transoral; with insertion of guide wire followed by passage of dilator(s) through esophagus over guide wire CPT copyright 2020 [employer]. All rights reserved. Attending Participation: [...] By: Yanet Buchanan RN In Department: GASTROENTEROLOGY [facility] 01-28-2025 Note Q3 Patient Name: Carl Gross Procedure Date: 01/28/2025 2:02 PM Date of : 1985 Admit Type: Outpatient Age: 39 Gender: Male Note Status: Finalized Attending MD: Kenisha Newby MD, [id number] Procedure: Upper GI endoscopy Indications: Dysphagia, Follow-up [...] the patient. Procedure Code(s): --- Professional --- 98238, Esophagogastroduodenoscopy, flexible, transoral; with insertion of guide wire followed by passage of dilator(s) through esophagus over guide wire CPT copyright 2020 [employer]. All rights reserved. Attending Participation: I was present and participated during the entire procedure, including non-goel portions. Scope In: 2:54:49 PM Scope Out: 3:02:[address] Kenisha Newby MD, MPH Kenisha Newby MD 01/28/2025 3:12:52 PM This report has been signed electronically by Kenisha Newby MD Number of Addenda: 0 Note Initiated On: 01/28/2025 2:[address] [facility] 01-22-2025 Telephone encounter Note Prescription Refill Information [...] Chang MA January 22, 2025 10:05 AM [facility] 01-22-2025 Miscellaneous Notes Prescription Refill Information The [...] 2025 10:05 AM documented in this encounter [facility] 01-08-2025 Telephone encounter Note Turned into TE Magnolia Arreguin MA [facility] 01-08-2025 Miscellaneous Notes Turned into TE Magnolia Arreguin MA documented in this encounter [facility] 01-07-2025 Note HNO ID: [id number] Author: SIMBA HORTON, DO Service: ? Author [...] to fuse 1st MTP by Dr. 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 montelukast [...] Tobacco Use Smoking (more content not included)... [facility] 01-07-2025 History of Present illness Narrative CC: Carl Gross is a [...] to fuse 1st MTP by Dr. Kimbrough Home Visit Field Care Manager in [place] Intermittent bloating, + stools are falling apart [...] wondering if he can do this in [place] instead due to how far away this [...] left foot surgery PAST SURGICAL HISTORY OF 2010 repair tendon right hand PAST SURGICAL HISTORY [...] (FLONASE) 50 mcg/actuation nasal spray Use 1 [place] in each nostril daily at bedtime. montelukast [...] above, stable, recently diagnosed on colonoscopy Simba Horton DO Return if no improvement. Follow up with Simba Horton DO. To ER if develops chest pain, shortness of breath. Discussed risks, benefits, alternatives, and potential side effects of medications. Patient/Guardian expressed understanding and agreed with the plan. See patient instructions. Simba Horton DO [address] [place] [address] documented in this encounter [facility] 12-14-2024 Telephone encounter Note Pt informed via message Magnolia Arreguin MA [facility] 12-14-2024 Miscellaneous Notes Pt informed via message Magnolia Arreguin MA Overall his labs look good. Slightly elevated WBC count but this was likely d/t the fact that he was sick/had an infection when this was drawn. We can redraw again in a month. No concerns. Tuan Puentes APRN.KVNG Images from the original note were not included. Pt sends [employer] message regarding his recent labs. Sebas Lawrence reviewed these results but would like provider to review. Carl Gross [facility] My Chart Rx Pool I m a little concerned about some of my recent lab results. What do you think, nothing to worry about? I didn t have any of these issues with my past 2 knee surgeries so I am concerned as to why I m having issues this time?? Thanks Froilan Gross documented in this encounter [facility] 12-14-2024 Telephone encounter Note Overall his labs look good. Slightly elevated WBC count but this was likely d/t the fact that he was sick/had an infection when this was drawn. We can redraw again in a month. No concerns. Tuan Puentes APRN.LADLE FILLER [facility] 12-10-2024 Telephone encounter Note Images from the original note were not included. Pt sends [employer] message regarding his recent labs. Sebas Lawrence reviewed these results but would like provider to review. Carl Gross Wstr [facility] My Chart Rx Pool I m a little concerned about some of my recent lab results. What do you think, nothing to worry about? I didn t have any of these issues with my past 2 knee surgeries so I am concerned as to why I m having issues this time?? Thanks Froilan Ginny [facility] 12-10-2024 Telephone encounter Note See TE December 10, 2024 [facility] 12-10-2024 Miscellaneous Notes See TE December 10, 2024 documented in this encounter [facility] 12-10-2024 Progress note Formatting of t his note might be different from the original. White cell count slightly increased due to recent infection. Continue on antibiotics for wound infection until gone. Thyroid testing was normal. Glucose was low, reported fasting at this visit. [facility] Work Phone: 12-10-2024 Miscellaneous Notes White cell count slightly increased due to recent infection. Continue on antibiotics for wound infection until gone. Thyroid testing was normal. Glucose was low, reported fasting at this visit. documented in this encounter [facility] 12-07-2024 Instructions Sebas Lawrence APRN.DARYL - 12/07/2024 2:53 PM EDT - Continue [...] your surgeon immediately. documented in this encounter [facility] 12-07-2024 History of Present illness Narrative Subjective Patient ID: Carl is [...] arthroscopic meniscus surgery on November 16 at [facility]. - Developed a bacterial infection at [...] 4 - Moderate documented in this encounter [facility] 12-07-2024 Note HNO ID: [id number] Author: SEBAS LAWRENCE APRN.PHOTOGRAPHER LITHOGRAPHIC Service: ? Author Type: Nurse Specialist Type: [...] arthroscopic meniscus surgery on November 16 at [facility]. - Developed a bacterial infection at [...] feel improved or any concerns. Sebas Lawrence APRN.PHOTOGRAPHER LITHOGRAPHIC Medical Decision Making: Problems: Low: Acute, uncomplicated illness or injury Data: Unique test(s) ordered: 3+ Risk: Moderate: Drug management Medical Decision Making Level: 4 - Moderate [facility] 12-03-2024 Telephone encounter Note PDMP website checked [...] to 30 days. Authorizing Provider: SHELLY BRODERICK APRN.LADLE FILLER [facility] 12-03-2024 Miscellaneous Notes PDMP website checked and [...] 2024 10:15 AM documented in this encounter [facility] 12-03-2024 Telephone encounter Note Prescription Refill Information [...] Chang MA December 03, 2024 10:15 AM [facility] 11-27-2024 Discharge summary [facility] 11-27-2024 Radiology Diagnostic study note [facility] Imaging Services [address] [place] [address] Knee 4 or More Views MR#: [id number] Acct: [id number] Name: CARL GROSS GENE Rep #: [id number] : 1985 M 39 From: Wm Smith DO PCP: Dr. Simba Horton DO Status: RE G ER Study:Knee 4 or More Views Date of Exam: 11/27/24 Exam# [id number] Ordering Dr: Shiv Garcia MD PROCEDURE: KNEE [...] Garcia MD; Dr. Simba Horton DO ~ Anatomic Pathology Manager: Signed [facility] 11-27-2024 Discharge summary Note Date/Time November 27, 2024 5:54pm [facility] Medical Records Department [address] [place] [address] Emergency Department Summary 11/27/24 MR#: [id number] Acct: [id number] Name: CARL GROSS GENE Rep #:[id number] : 1985 39 From: Shiv Garcia MD PCP: Dr. Simba Horton, DO Status:RE G ER Location: ED HPI History of Present Illness Chief Complaint: General Illness Narrative Narrative: 39-year-old male past medical history of previous knee problems states that he had surgery performed by Dr. Lopez at the [facility] on 16 November, approximately 10 days [...] may have an infection in his knee. PFSH PFSH Medical History Tear of meniscus of left [...] the patient with Dr. Lopez at the [facility], who states that he had called [...] 72.6 H Lymph % (Auto) 16.8 L [place] % (Auto) 7.6 Eos % (Auto) 1.9 [...] EFFUSION ACUTE FRACTURE OR DISLOCATION. Reading Location: [facility] Management Discussion w/another healthcare provider: Road Grader Operator (Dr. Lopez, orthopedics [facility]) Discharge Plan Triage Chief Complaint: General [...] Simba Horton DO [Primary Care Provider] - 3-5 Days if not improving Activity Restrictions/Additional Instructions: Follow-up with Dr. Lopez on , 2 days from now as scheduled. Continue theantibiotics he prescribed for you on Tuesday. Return with fever, new or worsening symptoms. Print Language: Bahraini Disposition Disposition: Home, Self Care What to do if you have Problems For any increased pain, shortness of breath, bleeding, nausea or vomiting, chestpain, or any unexpected problems, contact your Primary Care Provider. Call [facility] ([phone]) or report to the closest Emergency Room. Call 911 if necessary. 11/27/241753 <Electronically signed by Shiv Garcia MD> Cosigner Signature (if applicable): CC: Dr. Simba Horton DO ~ Signed [facility] Work Phone: 1(393) 308-558103-31-2025 Hospital Discharge instructions Additional Instructions Follow-up with Dr. Lopez on , 2 days from now as scheduled. Continue the antibiotics he prescribed for you on Tuesday. Return with fever, new or worsening symptoms. [facility] Work Phone: 1(740) 423-830303-24-2025 Nurse Note* Wendy Mendoza RN - 11/19/2024 [...] Signed By: Wendy Mendoza RN In Department: [facility]03-24-2025 Nurse Note* Wendy Mendoza RN - 11/19/2024 [...] Wendy Mendoza RN In Department: [facility] * Christi Wallace RN - 11/19/2024 7:24 AM EDT Patient had left knee arthroscopy 11/16/2024. Patient stated that orthopedic surgeon informed him that it is acceptable to have colonoscopy today. Dr Trevino and Vick Plata LOCAL SALES ASSOCIATE informed. Okay to proceedas planned. * Christi [...] Christi Wallace RN In Department: [facility] documented in this encounterGalion Hospital03-24-2025 History and physical note * Vi Trevino Jr., DO - 11/19/2024 7:30 [...] 19, 2024 TIME: 7:21 AM PAGER/CONTACT #: [facility]03-24-2025 History and physical note* Vi Trevino Jr., [...] 7:21 AM PAGER/CONTACT #: documented in this encounterGalion Hospital03-24-2025 Nurse Note* Christi Wallace RN - 11/19/2024 7:24 AM EDT Patient had left knee arthroscopy 11/16/2024. Patient stated that orthopedic surgeon informed him that it is acceptable to have colonoscopy today. Dr Trevino and Vick Plata CRNA informed. Okay to proceedas planned. [facility]03-24-2025 Nurse Note* Christi Wallace RN - 11/19/2024 [...] Signed By: Christi Wallace RN In Department: [facility]03-11-2025 Instructions* Patient Instructions* Robi Hendrickson MD - [...] am on dialysis? A: Please consult your seasonal warehouse associate prior to scheduling to get instructions pertinent to you. In general, dialysis patients take the NuoDBytely bowel prep and have the procedure same [...] rest of the day. documented in this encounterGalion Hospital03-10-2025 NoteHNO ID: [id number] Author: SHELLY BRODERICK APRN.LADLE FILLER Service: ? Author Type: Nurse Practitioner Type: [...] (FLONASE) 50 mcg/actuation nasal spray Use 1 Stony Point in each nostril daily at bedtime. montelukast [...] PMHx, PSHx, Social Hx, (more content not included)...[facility]03-10-2025 History of Present illness Narrative* Shelly Broderick APRN.LADLE FILLER - 11/05/2024 3:43 PM EDT Chief Complaint [...] (FLONASE) 50 mcg/actuation nasal spray Use 1 Stony Point in each nostril daily at bedtime. montelukast [...] 12/01/2024 Influenza Vaccine(1) due on 02/25/2025 Covid-19 Vaccine( - season) due on 07/25/2025 Annual PCP Team [...] suspiciousactivity was identified. 11/05/2024 by Shelly Broderick APRN.KVNG RTO as needed. Prescription instructions reviewed with patient as applicable. Potential red flag symptoms discussed with the patient. Reviewed appropriate action plan to take if red flag symptoms occur. Patient agreeable to treatment plan. Shelly Dejesus APRN.CNP [address] [place] [address] documented in this encounterGalion Hospital03-10-2025 Telephone encounter Note * Telephone Encounter - Ana Cristina Marroquin RN - 11/05/2024 9:26 AM EDT Triage Protocol Recommended: See provider today. Pt agreeable. Pt transferred to signing teacher to update his insurance information and schedule [...] dizziness, fever Protocols used: Stools - Unusual Aczdh-TLDCF-IQ, Rectal Fofiuxjl-AKOAU-ID [facility]03-10-2025 Miscellaneous Notes* Telephone Encounter - Ana Cristina Marroquin RN - 11/05/2024 9:26 AM EDT Triage Protocol Recommended: See provider today. Pt agreeable. Pt transferred to signing teacher to update his insurance information and schedule [...] dizziness, fever Protocols used: Stools - Unusual Woudg-UWGWK-YH, Rectal Hhgprosf-BRRRJ-EM documented in this encounterGalion Hospital03-06-2025 Telephone encounter Note * Telephone Encounter - [...] of breath Dermabond [2-Octyl * Rash (home) [phone] (cell) Last Office Visit Date: 07/25/2024 Last [facility] Health Visit: Visit date not found Future Appointment: 01/07/2025 The patients preferred pharmacy has been captured for this encounter? yes Request is for script(s) to be escript to pharmacy. Lisseth Lopez LPN [facility]03-06-2025 Miscellaneous Notes* Telephone Encounter - Lisseth Lopez LPN - 11/01/2024 10:11 AM EST Patient [employer] message requesting the following refill Refill(s) Requested: Requested Prescriptions Pending Prescriptions Disp Refills traZODone (DESYREL) 100 mg tablet 90 tablet 1 Sig: Take 1-2 tablets by mouth daily at bedtime. ALLERGIES Allergen Reactions Bee Sting Swelling Local swelling and shortness of breath Dermabond [2-Octyl * Rash (home) [phone] (cell) Last Office Visit Date: 07/25/2024 Last [facility] Health Visit: Visit date not found Future Appointment: 01/07/2025 The patients preferred pharmacy has been captured for this encounter? yes Request is for script(s) to be escript to pharmacy. Lisseth Lopez LPN documented in this encounterGalion Hospital02-03-2025 Telephone encounter Note * Telephone Encounter - [...] Morelos LPN October 01, 2024 11:37 AM [facility]02-03-2025 Miscellaneous Notes* Telephone Encounter - Dena Morelos [...] 01, 2024 11:37 AM documented in this encounterGalion Hospital01-22-2025 Telephone encounter Note * Telephone Encounter - Shelly Broderick APRN.KVNG - 09/19/2024 12:32 PM EST Noted. Thank you, Shelly Broderick APRN.LADLE FILLER [facility] Work Phone: [phone]) 166-870301-22-2025 Miscellaneous Notes* Telephone Encounter - Shelly Broderick APRN.KVNG - 09/19/2024 12:32 PM EST Noted. Thank you, Shelly Broderick APRN.LADLE FILLER * Telephone Encounter - Maria De Jesus Mcfarland - 09/18/2024 4:50 PM EST Pt transferred to this [facility] to schedule [facility] f/u for medication. Pt was advised insurance was OON. Ptstated he would have new insurance as of and wanted to wait till new insurance was in affect. Pt would call back after Sep 29 to update ins and schedule appt. documented in this encounterGalion Hospital01-21-2025 Telephone encounter Note * Telephone Encounter - Maria De Jesus Mcfarland - 09/18/2024 4:50 PM EST Pt transferred to this [facility] to schedule [facility] f/u for medication. Pt was advised insurance was OON. Ptstated he would have new insurance as of and wanted to wait till new insurance was in affect. Pt would call back after Sep 29 to update ins and schedule appt. [facility]01-21-2025 Telephone encounter Note* Telephone Encounter - Pricilla Hatfield LPN - 09/18/2024 4:45 PM EST Spoke with pt and information listed below given. Pt transferred to signing teacher to get and [facility] ER FU scheduled and then he can discuss medications. Pricilla Hatfield LPN [facility]01-21-2025 Miscellaneous Notes* Telephone Encounter - Pricilla Hatfield LPN - 09/18/2024 4:45 PM EST Spoke with pt and information listed below given. Pt transferred to signing teacher to get and [facility] ER FU scheduled and then he [...] I see my doctor. documented in this encounterGalion Hospital01-21-2025 Telephone encounter Note * Telephone Encounter - Magnolia Arreguin MA - 09/18/2024 2:43 PM EST Left message to return call Magnolia Arreguin MA [facility]01-21-2025 Telephone encounter Note* Telephone Encounter - Simba Horton DO - 09/18/2024 2:41 PM EST They won't let us refill narcotics from EMERGENCY DEPARTMENT unless patient has a virtual or officeappt Okay with KVNG Horton DO [facility]01-21-2025 Telephone encounter Note* Telephone Encounter - Clarissa [...] me by until I see my doctor. [facility]01-21-2025 Telephone encounter Note* Telephone Encounter - Clarissa Nevarez LPN - 09/18/2024 10:47 AM EST Changed to a telephone encounter and forwarded on to pcp [facility]01-21-2025 Miscellaneous Notes* Telephone Encounter - Clarissa Nevarez LPN - 09/18/2024 10:47 AM EST Changed to a telephone encounter and forwarded on to pcp documented in this encounterGalion Hospital01-16-2025 Telephone encounter Note * Telephone Encounter - Robi Hendrickson MD - 09/13/2024 4:01 PM EST New script sent [facility]01-16-2025 Miscellaneous Notes* Telephone Encounter - Robi Hendrickson MD - 09/13/2024 4:01 PM EST New script sent * Telephone Encounter - Dena Miguel - 09/13/2024 3:50 PM EST Natalie @ [facility] called stating they need a NEW Dupixent script with Diagnosis (EoE) and Diagnosis Code indicated on script sent. Says there an invalid transfer via [facility]. So, requesting for Dr. Hendrickson to send to them directly. documented in this encounterGalion Hospital01-16-2025 Telephone encounter Note * Telephone Encounter - Dena Miguel - 09/13/2024 3:50 PM EST Natalie @ [facility] pharmacy called stating they need a NEW Dupixent script with Diagnosis (EoE) and Diagnosis Code indicated on script sent. Says there an invalid transfer via [facility]. So, requesting for Dr. Hendrickson to send to them directly. [facility] Work Phone: 1(135) 284-759201-09-2025 Telephone encounter Note* Telephone Encounter - Mady Betancur RN - 09/06/2024 12:09 PM EST Called pharmacy and clarified the order- no loading dose, pt will stay on the current dose that's ordered the entire time he's on the medication. [facility]01-09-2025 Miscellaneous Notes* Telephone Encounter - Mady Betancur RN - 09/06/2024 12:09 PM EST Called pharmacy and clarified the order- no loading dose, pt will stay on the current dose that's ordered the entire time he's on the medication. * Telephone Encounter - Santana Iglesias - 09/06/2024 10:52 AM EST [facility] called. The pharmacy wants to make sure the pt is taking the correct dosage? Pt usually will start with a loading dose and then move to a maintenance dosage as needed. [facility] P- [phone] F- [phone] documented in this encounterGalion Hospital01-09-2025 Telephone encounter Note * Telephone Encounter - Santana Iglesias - 09/06/2024 10:52 AM EST [facility] called. The pharmacy wants to make sure the pt is taking the correct dosage? Pt usually will start with a loading dose and then move to a maintenance dosage as needed. [facility] P- [phone] F- [phone] [facility]12-30-2024 Telephone encounter Note* Telephone Encounter - Simba Horton DO - 08/27/2024 11:48 AM EST The following approved medication requests have been transmitted electronically. Requested Prescriptions Signed Prescriptions Disp Refills amoxicillin-clavulanate potassium (AUGMENTIN) 875-125 mg per tablet 20 tablet 0 Sig: Take 1 tablet by mouth two times a day for 10 days. Authorizing Provider: SIMBA HORTON DO [facility]12-30-2024 Miscellaneous Notes* Telephone Encounter - Simba Horton DO - 08/27/2024 11:48 AM EST The following approved medication requests have been transmitted electronically. Requested Prescriptions Signed Prescriptions Disp Refills amoxicillin-clavulanate potassium (AUGMENTIN) 875-125 mg per tablet 20 tablet 0 Sig: Take 1 tablet by mouth two times a day for 10 days. Authorizing Provider: SIMBA HORTON DO documented in this encounterGalion Hospital12-27-2024 Telephone encounter Note * Telephone Encounter - Falguni Moralez - 08/24/2024 3:25 PM EST [employer]My[employer]eds fax requesting Dupixent prior authorization, scanned in [employer] Separate fax received from [facility] to notify office the prior authorization has to be submitted via [employer] [phone] Falguni Moralez [facility]12-27-2024 Miscellaneous Notes* Telephone Encounter - Falguni Moralez - 08/24/2024 3:25 PM EST [employer]eds fax requesting Dupixent prior authorization, scanned in [employer] Separate fax received from [facility] to notify office the prior authorization has to be submitted via [employer] [phone] Falguni Moralez documented in this encounterGalion Hospital12-18-2024 Telephone encounter Note * Telephone Encounter - Christy Tee LPN - 08/15/2024 4:06 PM EST Patient returned call and went over results from Dr Horton with understanding. [facility]12-18-2024 Miscellaneous Notes* Telephone Encounter - Christy Tee [...] appearing Simba Horton DO documented in this encounterGalion Hospital12-18-2024 Telephone encounter Note * Telephone Encounter - Usha Rojas MA - 08/15/2024 3:59 PM EST Left message for patient to contact office. Usha Rojas MA [facility]12-16-2024 Telephone encounter Note* Telephone Encounter - Dena Morelos LPN - 08/13/2024 11:53 AM EST Left message to return call. [facility]12-16-2024 Telephone encounter Note* Telephone Encounter - Simba Horton DO - 08/13/2024 7:46 AM EST Please inform patient that all his stool studies are normal appearing Simba Horton DO [facility]11-27-2024 History of Present illness Narrative* Simba Horton [...] to fuse 1st MTP by Dr. 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 montelukast [...] diagnosis) Labs/stool studies as ordered F/u with Senior Examiner if not improved. - ENTERIC BACTERIAL PANEL [...] plan. See patient instructions. Simba Horton DO [address] [place] [address] documented in this encounterGalion Hospital11-27-2024 NoteHNO ID: [id number] Author: SIMBA HORTON DO Service: ? Author [...] to fuse 1st MTP by Dr. 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 montelukast [...] (114.0kg) Gen: AANDOX3, NAD, non-toxic appearing HEENT: KALANI, (more content not included)...[facility] 07-06-2024 History of Present illness Narrative* Robi Hendrickson MD - 07/06/2024 3:30 PM EST Patient unable to attend visit documented in this encounterGalion Hospital11-08-2024 NoteHNO ID: [id number] Author: ROBI HENDRICKSON MD Service: ? Author Type: Physician Type: Progress Notes Filed: 07/06/2024 15:41 Note Text: Patient unable [facility] History of Present illness Narrative* Phyllis Odell RT(R) - 06/26/2024 10:20 AM EDT Radiology [...] PATIENT PRESENTS WITH AN IMPLANTABLE OR ATTACHED EXAMINING CHAIR ASSEMBLER: No RADIOLOGY DEPARTMENT: General X-ray: Exam(s) Completed: Chest X-Ray PERIPHERAL IV DATA: Not applicable SIGNED BY: RT Deion(R) June 26, 2024 10:08 AM documented in this encounterGalion Hospital10-29-2024 History of Present illness Narrative* Mattie Henson APRN.CNP - 06/26/2024 10:00 AM EDT CC: Patient [...] (FLONASE) 50 mcg/actuation nasal spray Use 1 [place] in each nostril daily at bedtime. montelukast [...] spine. IMPRESSION IMPRESSION: No acute radiographic abnormality. Anatomic Pathology Manager: ANALI Transcribe Date/Time: Jun 26 2024 10:18A Dictated by : SYMONE MONZON MD 2. Strep throat - ICD9: 034.0, ICD10: J02.0 - AMOXICILLIN 500 MG CAPSULE Prescription instructions reviewed with patient as applicable. Potential red flag symptoms discussed with the patient. Reviewed appropriate action plan to take if red flag symptoms occur. Patient agreeable to treatment plan. Mattie Henson APRN.LADLE FILLER documented in this encounterGalion Hospital10-15-2024 Nurse Note* Nora Flowers RN - 06/12/2024 9:14 AM EDT Pt is alert and awake, denies pain, nausea and discomfort at this time. Discussed DC instructions, the pt and Marizol have no questions at this time. Pt wheeled out of the unit in a wheelchair by Marizol. [facility]10-15-2024 Nurse Note* Nora Flowers RN - [...] RN In Department: GASTROENTEROLOGY documented in this encounterGalion Hospital10-15-2024 Nurse Note* Nora Flowers RN - [...] MATERIAL: Procedure Discharge Instructions REFERRAL (RECOMMENDATION): None [facility]10-15-2024 Nurse Note* Nora Flowers RN - 06/12/2024 8:33 AM EDT Pt is drowsy but easy to awaken. Pt's spouse- Marizol at bedside. Dr. Da Silva at bedside speaking with the pt and Marizol. Pt denies pain, nausea and discomfort at this time. [facility]10-15-2024 NoteQ3 Patient Name: Carl Gross Procedure Date: 06/12/2024 8:01 AM Date of : 1985 Admit Type: Outpatient Age: 39 Gender: Male Note Status: Finalized Attending MD: Loranie Da Silva MD, [id number] Procedure: Upper GI endoscopy Indications: Dysphagia Providers: [...] - Patient has a (more content not included)...[id number] Nurse Note* Nora Flowers RN - 06/12/2024 [...] By: Nora Flowers RN In Department: GASTROENTEROLOGY [facility]10-08-2024 Telephone encounter Note* Telephone Encounter - Christy Tee LPN - 06/05/2024 8:52 AM EDT Phoned patient left detailed message with notes from Dr Horton on voicemail, and rx sent to pharmacy. [facility]10-08-2024 Miscellaneous Notes* Telephone Encounter - Christy Tee [...] 06/04/2024 12:44 PM EDT Pt sent in [employer] message today asking about an Rx for [...] like over the weekend. documented in this encounterGalion Hospital10-08-2024 Telephone encounter Note * Telephone Encounter - [...] venom sting Authorizing Provider: SIMBA HORTON DO [facility]10-07-2024 Telephone encounter Note* Telephone Encounter - Steph Root MA - 06/04/2024 12:44 PM EDT Pt sent in [employer] message today asking about an Rx for [...] for emergency cases like over the weekend. [facility]10-07-2024 Telephone encounter Note* Telephone Encounter - Steph Root MA - 06/04/2024 12:43 PM EDT Asked pt if breathing symptoms subsided, return to normal? Turned into TE and routed to PCP. Steph Root MA [facility]10-07-2024 Miscellaneous Notes* Telephone Encounter - Steph Root MA - 06/04/2024 12:43 PM EDT Asked pt if breathing symptoms subsided, return to normal? Turned into TE and routed to PCP. Steph Root MA documented in this encounterGalion Hospital09-09-2024 Telephone encounter Note * Telephone Encounter - Viri Benavides MA - 05/07/2024 10:56 AM EDT Patient filled Percocet 5/325 MG on 05/02/24 qty: 28 tablets prescribed by Joaquín Lopez at [facility] & picked up 05/02/24. Patient notified via [employer] message. Viri Benavides MA [facility]09-09-2024 Miscellaneous Notes* Telephone Encounter - Viri Benavides MA - 05/07/2024 10:56 AM EDT Patient filled Percocet 5/325 MG on 05/02/24 qty: 28 tablets prescribed by Joaquín Lopez at [facility] & picked up 05/02/24. Patient notified via [employer] message. Viri Benavides MA * Telephone Encounter - Simba Horton DO - 05/07/2024 7:46 AM EDT Please call patient to clarify if he was able to get his pain medication now from orthopedics Also I am not aware of [place] [facility]. Would assume they do a good job Simba Horton DO * Telephone Encounter - Magnolia Arreguin MA - 05/01/2024 3:08 PM EDT Please see pt MC message -- Hi. I forgot to go [...] where I m at. documented in this encounterGalion Hospital09-09-2024 Telephone encounter Note * Telephone Encounter - Simba Horton DO - 05/07/2024 7:46 AM EDT Please call patient to clarify if he was able to get his pain medication now from orthopedics Also I am not aware of [place] [facility]. Would assume they do a good job Simba Horton DO [facility]09-03-2024 Telephone encounter Note* Telephone Encounter - Magnolia Arreguin MA - 05/01/2024 3:08 PM EDT Please see pt MC message -- Hi. I forgot to go [...] just not happy where I m at. [facility]09-03-2024 Telephone encounter Note* Telephone Encounter - Magnolia Arreguin MA - 05/01/2024 3:07 PM EDT Turned into TE Magnolia Arreguin MA [facility]09-03-2024 Miscellaneous Notes* Telephone Encounter - Magnolia Arreguin MA - 05/01/2024 3:07 PM EDT Turned into TE Magnolia Arreguin MA documented in this encounterGalion Hospital09-03-2024 Instructions* Patient Instructions* Simba Horton DO - 05/01/2024 9:42 AM EDT Magnesium glycinate or gluconate 400-500 mg a bedtime. documented in this encounterGalion Hospital09-03-2024 History of Present illness Narrative* Simba Horton DO - 05/01/2024 9:17 AM EDT CC: [...] (FLONASE) 50 mcg/actuation nasal spray Use 1 [place] in each nostril daily at bedtime. montelukast [...] with the plan. Simba Horton DO [address] [place] [address] documented in this encounterGalion Hospital08-29-2024 Telephone encounter Note * Telephone Encounter - [...] was identified. 04/26/2024 by Tuan Puentes CNP. [facility]08-29-2024 Miscellaneous Notes* Telephone Encounter - Tuan Puentes [...] RN - 04/26/2024 3:32 PM EDT [facility] calling regarding patient's prescription received for Alprazolam 0.25 mg, received 04/25/24, placed by Tuan. Pharmacist states they need a frequency on the script, please. Thank you. documented in this encounterGalion Hospital08-29-2024 Telephone encounter Note * Telephone Encounter - Ana Cristina Marroquin RN - 04/26/2024 3:32 PM EDT [facility] calling regarding patient's prescription received for Alprazolam 0.25 mg, received 04/25/24, placed by Tuan. Pharmacist states they need a frequency on the script, please. Thank you. [facility]08-28-2024 Telephone encounter Note* Telephone Encounter - Falguni Cordova - 04/25/2024 12:33 PM EDT CoverMyMeds fax rec'd 04/23 requesting Dupixent prior authorization, scanned in [employer] GOEL: [id number] Falguni [place] [facility]08-28-2024 Miscellaneous Notes* Telephone Encounter - Falguni Cordova - 04/25/2024 12:33 PM EDT [employer] fax rec'd 04/23 requesting Dupixent prior authorization, scanned in [employer] GOEL: [id number] Falguni [place] documented in this encounterGalion Hospital08-26-2024 Telephone encounter Note * Telephone Encounter - Miriam Henson MA - 04/23/2024 2:06 PM EDT Prescription [...] day as needed for muscle spasm. Miriam Henson MA April 23, 2024 2:06 PM [facility]08-26-2024 Miscellaneous Notes* Telephone Encounter - Miriam Henson MA - 04/23/2024 2:06 PM EDT Prescription [...] day as needed for muscle spasm. 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 [...] (FLONASE) 50 mcg/actuation nasal spray Use 1 [place] in each nostril daily at bedtime. montelukast [...] 19+ 3-dose series) due on 12/01/2024 Covid-19 Vaccine( - 2022- season) due on 12/01/2024 Influenza Vaccine(1) due [...] to ER with red flag symptoms Sweetie Podlogar, PROMOTIONS ASSISTANT.LADLE FILLER Prescription instructions reviewed with patient as applicable. [...] Level: 4 - Moderate documented in this encounterGalion Hospital07-23-2024 NoteQ3 Patient Name: Carl Gross Procedure Date: 03/20/2024 7:23 AM Date of : 1985 Admit Type: Outpatient Age: 39 Gender: Male Note Status: Finalized Attending MD: Loraine Da Silva MD, [id number] Procedure: Upper GI endoscopy Indications: Dysphagia Providers: [...] patient to home (ambulatory). (more content not included)...[id number] Nurse Note* Jonelle Braxton RN - 03/20/2024 [...] None Electronically Signed By: Jonelle Braxton RN [facility]07-23-2024 Nurse Note* Jonelle Braxton RN - 03/20/2024 [...] None Electronically Signed By: Jonelle Braxton RN * Bouchra Payne RN - 03/20/2024 [...] RN In Department: GASTROENTEROLOGY documented in this encounterGalion Hospital07-23-[facility] Nurse Note* Bouchra Payne RN - 03/20/2024 7:17 AM EDT PRE OP LEARNING ASSESSMENT PROCEDURE/SURGERY: GI PROCEDURES: EGD READINESS TO LEARN COGNITIVE ABILITY: Alert and oriented MOTIVATION TO LEARN: Interested FAMILY SUPPORT: High - Very involved in pt care PATIENT LEARNS BEST BY: Multiple Methods FACTORS AFFECTING LEARNING: None PHYSICAL LIMITATIONS AFFECTING LEARNING: None Electronically Signed By: Bouchra Payne RN In Department: GASTROENTEROLOGY [facility]07-19-[facility] Instructions* Patient Instructions* Lupe Sanchez PA-C - 03/16/2024 3:02 PM EDT Images from the original note were not included. [facility] PATIENT PREOPERATIVE INSTRUCTIONS No ref. provider found has scheduled you for your procedure at this surgery center: [facility] Scheduling Office: [phone] --[address] [place] [address]. Please read below carefully for your personalized [...] Procedures: - YOU MUST HAVE A RESPONSIBLE SAND MOLDER TAKE YOU HOME. A B AND B GANG WORKER OR HYPERBARIC TECH CANNOT BE MADE A RESPONSIBLE SAND MOLDER. - We recommend that a responsible person [...] call the Tuesday before. Your surgeon s signing teacher will tell you what time to call the office. - If you have not reached the departmental signing teacher by 5 P.M., call [phone] after 5 P.M. the day before your surgery. Please be aware that emergency situations arise, which may delay or change your surgical time. If this happens, we will notify you as soon as possible and regret any inconvenience. If you already have an Advance Directive, please fax a copy to [phone] or email to for it to be [...] day. Lupe Sanchez PA-C documented in this encounterGalion Hospital07-19-2024 History and physical note * Lupe Sanchez [...] encounter. This is a virtual visit using [employer] video visit. It required patient-provider interaction for [...] virtual visit. The visit was conducted using [employer] video visit. It required patient-provider interaction for the medical decision making as documented below. I have communicated my name and active licensure. The patient's identity and physical location wereverified at the time of this visit. Either the patient or their legal installation service representative has been informed of the risks and benefits of and alternatives to treatment through a remote evaluation and consents to proceed with the evaluation remotely. REVIEW OF SYSTEMS: General: Negative for: unintentional weight change, malaise and fever. Neurological: Negative for: PHOTOGRAPHER LITHOGRAPHIC tumor, delirium, dementia, headaches, Parkinson's disease, seizures, TIA and strokes. Respiratory: Positive for: asthma (albuterol PRN, 2-3 times per month on average). Negative for: bronchitis, COPD, current cough, dyspnea, pneumonia within 6 weeks, tobacco use and URI < 2 weeks. Cardiovascular: Negative for: angina, arrhythmia, CAD, chest pain, CHF, DVT/PE, hyperlipidemia, hypertension, recent WI and murmur/valvular heart disease. GI: See HPI. [...] left foot surgery PAST SURGICAL HISTORY OF 2010 repair tendon right hand PAST SURGICAL HISTORY [...] Prior to Admission medications as of 03/16/24 5174 Medication Sig Last Dose Taking dupilumab (DUPIXENT [...] (FLONASE) 50 mcg/actuation nasal spray Use 1 [place] in each nostril daily at bedtime. Taking [...] or any previous visit (from the past 29006 hour(s)). Instructions Given to Patient: Instructions located in the after visit summary. Patient given verbal and written preop instructions and voices comprehension and compliance. SIGNATURE: Lupe Sanchez PA-C PATIENT NAME: Carl Gross DATE: March 16, 2024 TIME: 3:09 PM PAGER/CONTACT #: [facility] History and physical note* Lupe Sanchez PA-C [...] encounter. This is a virtual visit using [employer] video visit. It required patient-provider interaction for [...] virtual visit. The visit was conducted using [employer] video visit. It required patient-provider interaction for the medical decision making as documented below. I have communicated my name and active licensure. The patient's identity and physical location wereverified at the time of this visit. Either the patient or their legal installation service representative has been informed of the risks and benefits of and alternatives to treatment through a remote evaluation and consents to proceed with the evaluation remotely. REVIEW OF SYSTEMS: General: Negative for: unintentional weight change, malaise and fever. Neurological: Negative for: PHOTOGRAPHER LITHOGRAPHIC tumor, delirium, dementia, headaches, Parkinson's disease, seizures, TIA and strokes. Respiratory: Positive for: asthma (albuterol PRN, 2-3 times per month on average). Negative for: bronchitis, COPD, current cough, dyspnea, pneumonia within 6 weeks, tobacco use and URI < 2 weeks. Cardiovascular: Negative for: angina, arrhythmia, CAD, chest pain, CHF, DVT/PE, hyperlipidemia, hypertension, recent WI and murmur/valvular heart disease. GI: See HPI. [...] Prior to Admission medications as of 03/16/24 6217 Medication Sig Last Dose Taking dupilumab (DUPIXENT [...] (FLONASE) 50 mcg/actuation nasal spray Use 1 [place] in each nostril daily at bedtime. Taking [...] or any previous visit (from the past 24939 hour(s)). Instructions Given to Patient: Instructions located in the after visit summary. Patient given verbal and written preop instructions and voices comprehension and compliance. SIGNATURE: Lupe Sanchez PA-C PATIENT NAME: Carl Gross DATE: March 16, 2024 TIME: 3:09 PM PAGER/CONTACT #: documented in this encounterGalion Hospital07-16-2024 Telephone encounter Note * Telephone Encounter - Winsome Piper RN - 03/13/2024 10:48 AM EDT Attempted to reach the patient at the contact number that they provided [phone] (home) . Unable to speak with patient so without identifying the patient the following information was left on their voice mail: Date of procedure, location and report time Prep instructions A message was left informing the patient/patient installation service representative they must have a responsible adult [...] Number to call with questions or concerns [phone] Number to call to cancel their procedure [phone] Winsome Piper RN [facility] Miscellaneous Notes* Telephone Encounter - Winsome Piper RN - 03/13/2024 10:48 AM EDT Attempted to reach the patient at the contact number that they provided [phone] (home) . Unable to speak with patient so without identifying the patient the following information was left on their voice mail: Date of procedure, location and report time Prep instructions A message was left informing the patient/patient installation service representative they must have a responsible adult [...] Number to call with questions or concerns [phone] Number to call to cancel their procedure [phone] Winsome Piper RN documented in this encounterGalion Hospital07-10-2024 Telephone encounter Note * Telephone Encounter - Becca Trujillo RN - 03/07/2024 10:36 AM EDT Pt called and is notified of providers message and instructions. Pt voices understanding. Becca Trujillo RN [facility]07-10-[facility] Miscellaneous Notes* Telephone Encounter - Becca Trujillo [...] follow the results if necessary. Tuan Puentes APRN.CNP * Telephone Encounter - Ana Cristina Marroquin [...] update, . Thank you. documented in this encounterGalion Hospital07-10-2024 Telephone encounter Note * Telephone Encounter - Tuan Puentes APRN.CNP - 03/07/2024 10:32 AM EDT If this is being recommended by orthopedics, they should be ordering the test so they can follow the results if necessary. Tuan Puentes APRN.KVNG [facility] Work Phone: [phone] Telephone encounter Note* Telephone Encounter - Ana [...] call patient with update, . Thank you. [facility] Telephone encounter Note* Telephone Encounter - Mady Betancur RN - 03/02/2024 3:12 PM EDT PA submitted via [facility] dupilumab (DUPIXENT PEN) 300 mg/2 mL pen injection 12 Each 3 02/14/2024 -- Sig: Inject 300 mg subcutaneously one time a week. Goel: [id number] [facility]07-[facility] Miscellaneous Notes* Telephone Encounter - Mady Betancur RN - 03/02/2024 3:12 PM EDT PA submitted via [facility] dupilumab (DUPIXENT PEN) 300 mg/2 mL pen injection 12 Each 3 02/14/2024 -- Sig: Inject 300 mg subcutaneously one time a week. Goel: [id number] documented in this encounterGalion Hospital07-03-2024 Telephone encounter Note * Telephone Encounter - Magnolia Arreguin MA - 02/29/2024 12:32 PM EDT Please see pt message regarding 3 month anxiety med follow up Magnolia Arreguin MA [facility]07-03-[facility] Miscellaneous Notes* Telephone Encounter - Magnolia Arreguin MA - 02/29/2024 12:32 PM EDT Please see pt message regarding 3 month anxiety med follow up Magnolia Arreguin MA documented in this encounterGalion Hospital06-26-2024 Telephone encounter Note * Telephone Encounter - [...] pen injection Class: Normal Route: SUBCUTANEOUS Order: [id number] E-Prescribing Status: Receipt confirmed by pharmacy (02/14/2024 4:13 PM EDT) Administration Details suggestion The administrations shown are only for this specific order and not for other orders for the same medication that may be in this encounter. No Administrations Recorded Order History Outpatient Date/Time Action Taken User Additional Information 02/14/24 0761 Robi Pandey [place] [address] [address] [phone] [facility] Miscellaneous Notes* Telephone Encounter - Robi Hendrickson [...] pen injection Class: Normal Route: SUBCUTANEOUS Order: [id number] E-Prescribing Status: Receipt confirmed by pharmacy (02/14/2024 4:13 PM EDT) Administration Details suggestion The administrations shown are only for this specific order and not for other orders for the same medication that may be in this encounter. No Administrations Recorded Order History Outpatient Date/Time Action Taken User Additional Information 02/14/24 5107 Robi Pandey MD Pharmacy [place] [address] - [address] [phone] * Telephone Encounter - Santana Iglesias - 02/22/2024 12:03 PM EDT [facility] asking if Dr. Hendrickson intentionally wrote a prescription for the pre-filledDupixent or does he want the pt to have the Dupixent pen? Please call the number below to let [facility] know which way Dr. Hendrickson prefers the patient to have the med. [facility]- [phone] documented in this encounterGalion Hospital06-26-2024 Telephone encounter Note * Telephone Encounter - GraceSantana luciano - 02/22/2024 12:03 PM EDT [facility] called asking if Dr. Hendrickson intentionally wrote a prescription for the pre-filledDupixent or does he want the pt to have the Dupixent pen? Please call the number below to let [facility] know which way Dr. Hendrickson prefers the patient to have the med. [facility] P- [phone] [facility] Instructions* Patient Instructions* Robi Hendrickson MD - 02/14/2024 4:10 PM EDT Schedule EGD with Dr. Da Silav - you can call [phone] to schedule 2. Continue Dupilumab 300mcg every [...] for patients with FODMAP intolerance. High Fructose [place] Syrup (HFCS) * HFCS is an ingredient [...] so check with your pharmacist or the loan officer assistant. -Keep in mind the amount of fructose [...] beans, chickpeas, kidney beans, lentils) beetroot, broccoli, [place] sprouts, cabbage, cauliflower, fennel, garlic, sugar snap [...] Pecans Cashews Peanuts Butter Mayonnaise Peanut Butter [place] Oil Plain Rice Cakes Quinoa Vanilla Extract Elton tortillas Ground flaxseed [place] and rye products (rye bread and crackers), [...] clinic in 6-12 months. You can call [phone] about 2 months prior to your expectedvisit documented in this encounterGalion Hospital06-18-2024 History of Present illness Narrative* Robi Hendrickson MD - 02/14/2024 4:04 PM EDT VIRTUAL VISIT FOLLOW UP I have communicated my name and active licensure. The patient's identity and physical location wereverified at the time of this visit. Either the patient or their legal installation service representative has been informed of the risks [...] (FLONASE) 50 mcg/actuation nasal spray Use 1 [place] in each nostril daily at bedtime. 1 [...] months Robi Hendrickson MD documented in this encounterGalion Hospital04-23-2024 Nurse Note* Carrillo Delgado RN - 12/20/2023 8:[address] Martinez spoke to patient Carl prior to being discharged from unit [facility] Nurse Note* Carrillo Delgado RN - 12/20/2023 [...] RN In Department: GASTROENTEROLOGY documented in this encounterGalion Hospital04-23-2024 NoteQ3 Patient Name: Carl Gross Procedure Date: 12/20/2023 7:26 AM Date of : 1985 Admit Type: Outpatient Age: 38 Gender: Male Note Status: Finalized Attending MD: Isai Martinez MD, [id number] Procedure: Upper GI endoscopy Indications: Dysphagia Providers: [...] the patient. Procedure Code(s): --- Professional --- 99270, Esophagogastroduodenoscopy, flexible, transoral; with insertion of guide wire followed by passage of dilator(s) through esophagus over guide wire Diagnosis Code(s): --- Professional --- K20.0, Eosinophilic esophagitis R13.10, Dysphagia, unspecified CPT copyright 2020 [employer]. All rights reserved. Attending Participation: I personally performed the entire procedure. Scope In: 7:38:40 AM Scope Out: 7:42:[address] Isai Martinez MD 12/20/2023 7:45:57 AM This report has been signed electronically by Isai Martinez MD Number of Addenda: 0 Note Initiated On: 12/20/2023 7:26 [id number] Nurse Note* Carolny Figueroa, RN - 12/20/2023 7:00 AM EDT PRE [...] By: Carolyn Figueroa RN In Department: GASTROENTEROLOGY [facility] Miscellaneous Notes* Telephone Encounter - Sakina Drake LPN - 12/16/2023 7:07 AM EDT STEPHON-12/02/23 Labs-04/26/23 NOV-03/07/24 Sakina Drake LPN Patient comment: I just had knee surgery. I am having muscle cramps bad in the operated leg which is restricted by my brace. I just finished last few I had. documented in this encounterGalion Hospital04-16-2024 Instructions* Patient Instructions* Keshia Magana APRN.LADLE FILLER - 12/13/2023 3:45 PM EDT PATIENT PREOPERATIVE INSTRUCTIONS Loraine Da Silva MD has scheduled you for your procedure at this surgery center: [facility] Scheduling Office: [phone] --[address] [place] [address]. Please read below carefully for your personalized [...] Procedures: - YOU MUST HAVE A RESPONSIBLE SAND MOLDER TAKE YOU HOME. A B AND B GANG WORKER OR HYPERBARIC TECH CANNOT BE MADE A RESPONSIBLE SAND MOLDER. - We recommend that a responsible person [...] call the Tuesday before. Your surgeon s signing teacher will tell you what time to call the office. - If you have not reached the departmental signing teacher by 5 P.M., call [phone] after 5 P.M. the day before your surgery. Please be aware that emergency situations arise, which may delay or change your surgical time. If this happens, we will notify you as soon as possible and regret any inconvenience. If you already have an Advance Directive, please fax a copy to [phone] or email to for it to be [...] your chart that day. documented in this encounterGalion Hospital04-16-2024 Miscellaneous Notes* Telephone Encounter - Lupe Caldwell RN - 12/13/2023 3:24 PM EDT Attempted to reach the patient at the contact number that they provided [phone] (home). Unableto speak with patient so without identifying the patient the following information was left on their voice mail: Date of procedure, location and report time A message was left informing the patient/patient installation service representative they must have a responsible adult [...] Number to call with questions or concerns [phone] Mimi Hess RN BSN documented in this encounterGalion Hospital04-16-2024 History and physical note * Keshia Magana APRN.LADLE FILLER - 12/13/2023 3:10 PM EDT PREANESTHESIA CONSULT CLINIC This is a virtual visit. It required patient-provider interaction for the medical decision making as documented below. Patient has been identified by name and date of : Yes Reason for call: PACC visit Accompanied by: Self This is a virtual visit using [employer] Zoom Video Visit. It required patient- provider interaction for the medical decision making as documented below. I have communicated my name and active licensure. The patient's identity and physical location wereverified at the time of this visit. Either the patient or their legal installation service representative has been informed of the risks [...] (FLONASE) 50 mcg/actuation nasal spray Use 1 [place] in each nostril daily at bedtime. montelukast [...] fevers. Neuro: No history of TIA's, stroke, PHOTOGRAPHER LITHOGRAPHIC tumor, impaired sensorium, hemiplegia, paraplegia or quadraplegia. No neurological symptoms or problems. Respiratory: No history of current cough or dyspnea, or pneumonia in the past 6 weeks. (+) asthma, BOB resolved with weight loss Cardiovascular: No history of HTN requiring medication, no history of angina, CHF, WI, cardiac surgery or stents. Denies rest pain, [...] 5.3 EKG: View EKG Wave Form [ID [id number]] Procedure Date : Jul 22 2012 11:34 [...] 3:12 PM PAGER/CONTACT #: documented in this encounterGalion Hospital04-12-2024 Miscellaneous Notes* Telephone Encounter - Svetlana Espinoza PA-C - 12/09/2023 3:41 PM EDT Good afternoon, I called this patient during their scheduled [employer] zoom virtual PACC visit. Patient did not answer phone. I left a message offering assistance signing in. Patient did not return my call and did notsign into visit. Forwarding this encounter to schedulers. Patient will need his PACC visit rescheduled. Thank you, Svetlana Espinoza PA-C documented in this encounterGalion Hospital04-05-2024 History of Present illness Narrative* Shelly Broderick APRN.LADLE FILLER - 12/02/2023 10:45 AM EDT Chief Complaint [...] Sig dupilumab 300 mg/2 mL subcutaneous syringe ([employer] SYRINGE) Inject 2 mL subcutaneously one time [...] (FLONASE) 50 mcg/actuation nasal spray Use 1 [place] in each nostril daily at bedtime. cyclobenzaprine [...] 19+ 3-dose series) due on 12/01/2024 Covid-19 Vaccine( season) due on 12/01/2024 Annual PCP Team [...] suspiciousactivity was identified. 12/02/2023 by Shelly Broderick APRN.KVNG RTO in 3 months, sooner if needed. Prescription instructions reviewed with patient as applicable. Potential red flag symptoms discussed with the patient. Reviewed appropriate action plan to take if red flag symptoms occur. Patient agreeable to treatment plan. Shelly Dejesus APRN.CNP [address] [place] [address] documented in this encounterGalion Hospital03-15-2024 Miscellaneous Notes* Telephone Encounter - Mady Betancur RN - 11/11/2023 1:55 PM EDT PA submitted via [facility] dupilumab 300 mg/2 mL subcutaneous syringe (DUPIXENT SYRINGE) 12 Each 3 11/07/2023 -- Sig: Inject 2 mL subcutaneously one time a week. Goel: [id number] PA documented in this encounterGalion Hospital03-11-2024 Instructions* Patient Instructions* Robi Hendrickson MD - 11/07/2023 4:57 PM EDT Schedule EGD with Dr. Da Silva - you can call [phone] 2. Start dupixent 1 shot weekly 3. Return to clinic in 4 months - you can call [phone] to schedule documented in this encounterGalion Hospital03-11-2024 History of Present illness Narrative* Robi Hendrickson MD - 11/07/2023 4:32 PM EDT VIRTUAL VISIT FOLLOW UP I have communicated my name and active licensure. The patient's identity and physical location wereverified at the time of this visit. Either the patient or their legal installation service representative has been informed of the risks [...] (FLONASE) 50 mcg/actuation nasal spray Use 1 [place] in each nostril daily at bedtime. 1 [...] months Robi Hendrickson MD documented in this encounterGalion Hospital03-04-2024 Miscellaneous Notes* Telephone Encounter - Rosangela Loyd Ma - 10/31/2023 9:59 AM EST Notified via [employer]. Rosangela Loyd Ma * Telephone Encounter - Pricilla Hatfield LPN - 10/19/2023 2:52 PM EST Left a message for pt to call the office and ask to speak to a nurse. Pt to pick the note up in [facility] at the desk. Pricilla Hatfield LPN * Telephone Encounter - Vladimir Bhatia RN - 10/18/2023 9:54 AM EST [...] to clinic today [facility] that excused him from work on 10/11/23-10/12/23 and he wanted to know if it could be extended to 10/13/23 because his fever broke today. Patient stated he was going to return to work on 10/14/23, please advise. documented in this encounterGalion Hospital02-15-2024 Miscellaneous Notes* Telephone Encounter - Cynthia Mahoney APRN.CNP - 10/13/2023 2:45 PM EST Patient presents to [facility] for extended work excuse. Was seen here on 10/11/23- will be able to return to work tomorrow. Note printed and given to patient by JIM Urrutia. Cynthia Mahoney APRN.LADLE FILLER documented in this encounterGalion Hospital02-14-2024 Miscellaneous Notes* Telephone Encounter - Taryn Saldana LPN - 10/12/2023 8:11 AM EST Message left for Leidy that Rx was sent to different pharmacy as requested. Taryn Saldana LPN * Telephone Encounter - Mattie Henson APRN.KVNG - 10/11/2023 1:35 PM EST Please call and let them know that the prescription was changed. * Telephone Encounter - Taryn Saldana LPN - 10/11/2023 1:27 PM EST Seen in today & was given Tamiflu, pt's Marizol reports [facility] does not have this avail & is asking for it to go to [facility] in [place]. Marizol called ahead & they do have itin stock. Med pending. Taryn Saldana LPN documented in this encounterGalion Hospital02-13-2024 History of Present illness Narrative* Cynthia Mahoney APRN.KVNG - 10/11/2023 11:16 AM EST Subjective Cough [...] (FLONASE) 50 mcg/actuation nasal spray Use 1 [place] in each nostril daily at bedtime. montelukast [...] Discussed expected course of illness Cynthia Mahoney APRN.KVNG documented in this encounterGalion Hospital02-13-2024 Instructions* Patient Instructions* Cynthia Mahoney APRN.CNP - 10/11/2023 11:16 AM EST ASSESSMENT/PLAN: 1. [...] Discussed expected course of illness Cynthia Mahoney APRN.CNP Treatment for Viral Upper Respiratory Tract Infections [...] fluids help open respiratory and sinus passages [place] Nasal [place] Point may offer relief of nasal and head [...] worse rather than better documented in this encounterGalion Hospital12-05-2023 History of Present illness Narrative* Yesica Diaz PA-C - 08/02/2023 6:37 PM EST This note was created using [employer]. Subjective Carl Gross is a 38 year [...] (FLONASE) 50 mcg/actuation nasal spray Use 1 [place] in each nostril daily at bedtime. 1 [...] plan. Yesica Diaz PA-C documented in this encounterGalion Hospital12-04-2023 Instructions* Patient Instructions* Robi Hendrickson MD - [...] months, virtual is ok. documented in this encounterGalion Hospital12-04-2023 History of Present illness Narrative* Robi Hendrickson [...] (FLONASE) 50 mcg/actuation nasal spray Use 1 [place] in each nostril daily at bedtime. 1 [...] 01, 2023 3:38 PM documented in this encounterGalion Hospital11-21-2023 Nurse Note* Jazmin Gomez, RN - 07/19/2023 3:32 PM EST AMBULATORY [...] LPN In Department: GASTROENTEROLOGY documented in this encounterGalion Hospital11-06-2023 History of Present illness Narrative* Tiffanie Norwood MD - 07/04/2023 8:56 AM EST HYPOGONADISM INITIAL CONSULT PATIENT NAME: Carl Gross SERVICE DATE: 07/04/2023 SERVICE TIME: 9 AM REASON FOR CONSULT: Low libido, was referred to Endocrinology due to recent testosterone labs REQUESTING PHYSICIAN: Simba Horton [address] [facility] [address] Subjective HISTORY OF PRESENT ILLNESS: Mr. Gross [...] (FLONASE) 50 mcg/actuation nasal spray Use 1 [place] in each nostril daily at bedtime. 1 [...] 2023 TIME: 3:03 PM documented in this encounterGal[facility]23 Miscellaneous Notes* Telephone Encounter - Sakina Drake LPN - 05/20/2023 1:22 PM EDT Patient phones requesting refills as follows: Requested Prescriptions Pending Prescriptions Disp Refills busPIRone (BUSPAR) 5 mg tablet 60 tablet 5 Sig: Take 1 tablet by mouth twice daily as needed (anxiety attack). STEPHON-04/26/23 Labs-05/05/23 NOV-05/01/24 Please review and advise. Sakina Drake LPN documented in this encounterGalion Hospital09-20-2023 Telephone encounter Note * Telephone Encounter - Simba Horton DO - 05/18/2023 9:02 PM EDT See other Simab THRASHER DO [facility] Miscellaneous Notes* Telephone Encounter - Simba Horton DO - 05/18/2023 9:02 PM EDT See sofía TESimba DO * Telephone Encounter - Nicole Bob LPN - 05/13/2023 4:43 PM EDT Images from the original note were not included. Question regarding TESTOSTERONE, FREE AND TOTAL Received: Today Carl Gross Ws Famp My Chart Rx Pool Is there anything we can do? documented in this encounterGalion Hospital09-20-2023 Miscellaneous Notes* Telephone Encounter - Ana Cristina Marroquin RN - 05/18/2023 4:14 PM EDT Patient returned call and given provider's message below and patient verbalized understanding. Jeanine Marroquin RN * Telephone Encounter - Magnolia Arreguin - 05/18/2023 10:38 AM EDT LEFT MESSAGE FOR PATIENT TO RETURN CALL FOR RESULTS. 1ST ATTEMPT. aMgnolia Arreguin * Telephone Encounter - Simba Horton DO - 05/18/2023 8:47 AM EDT Please inform patient that testosterone is still in the lower normal range, now in the upper 200s. Can consider opinion by Stripper Shovel Operator regarding if interested in considering testosterone therapy/medication Simba Horton DO documented in this encounterGalion Hospital09-15-2023 Telephone encounter Note * Telephone Encounter - Nicole Bob LPN - 05/13/2023 4:43 PM EDT Images from the original note were not included. Question regarding TESTOSTERONE, FREE AND TOTAL Received: Today GinnyCarl Wstr Famp My Chart Rx Pool Is there anything we can do? [facility] Misc[facility] Notes* Telephone Encounter - Pricilla Hatfield [...] support vitamin) or can consider opinion by Stripper Shovel Operator to start testosterone medication Simba Horton DO [...] ago it wasmuch higher. 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 meloxicam [...] - ICD9: 727.1, ICD10: M21.612 F/u with cloth bleaching range back tender Simba Horton DO To ER if develops chest pain, shortness of breath, or severe worsening of symptoms. Discussed risks, benefits, alternatives, and potential side effects of medications. Patient expressed understanding and agreed with the plan. Simba Horton DO [address] [place] [address] documented in this encounterGalion Hospital08-11-2023 Miscellaneous Notes* Telephone Encounter - Dena Morelos LPN - 04/08/2023 1:46 PM EDT These were faxed over yesterday . documented in this encounterGalion Hospital08-10-2023 Miscellaneous Notes* Telephone Encounter - Magnolia Arreguin - 04/07/2023 4:06 PM EDT Faxed and pt informed via [employer] Magnolia Arreguin * Telephone Encounter - Simba Horton DO - 04/06/2023 10:03 PM EDT Please fax paperwork as patient is requesting below and then notify him Simba Horton DO * Telephone Encounter - Magnolia Arreguin - 04/06/2023 3:58 PM EDT Images from the original note were not included. Additional message- Carl G Ginny P Wstr Famp My Chart Rx Pool (supporting Simba Horton DO) 2 days ago AC Hi. Can you fax that FLMA paperwork to Dr. Irizarry office? Attachments [email or web address] [...] out. Thanks Carl Gross documented in this encounterGalion Hospital08-03-2023 Miscellaneous Notes* Telephone Encounter - Linda Sosa [...] I apologize for the inconvenience. Shelly Broderick APRN.CNP * Telephone Encounter - Christy Tee LPN [...] below. * Telephone Encounter - Shelly Broderick APRN.CNP - 03/30/2023 6:28 PM EDT Please get [...] of Shelly Bob LPN documented in this encounterGalion Hospital08-02-2023 Miscellaneous Notes* Telephone Encounter - Sakina Drake LPN - 03/30/2023 3:48 PM EDT Patient phones requesting refills as follows: Requested Prescriptions Pending Prescriptions Disp Refills omeprazole (PRILOSEC) 40 mg capsule 30 capsule 3 Sig: Take 1 capsule by mouth once daily. STEPHON-02/02/23 Labs-01/12/22 NOV-04/26/23 Please review and advise. Sakina Drake LPN documented in this encounterGalion Hospital08-02-2023 Miscellaneous Notes* Telephone Encounter - Dena Morelos LPN - 03/30/2023 2:10 PM EDT Copied to phone note. documented in this encounterGalion Hospital08-01-2023 Nurse Note* Nora Ohara RN - 03/29/2023 [...] RN In Department: GASTROENTEROLOGY documented in this encounterGalion Hospital06-19-2023 Miscellaneous Notes* Telephone Encounter - Steph Root Ma - 02/14/2023 10:39 AM EDT Sweetie, please see pt message. Pt was seen by you on 02/02/23. Steph Root Ma documented in this encounterGalion Hospital06-07-2023 History of Present illness Narrative* Sweetie Tyson, PROMOTIONS ASSISTANT.LADLE FILLER - 02/02/2023 12:16 PM EDT 02/02/2023 Patient [...] (FLONASE) 50 mcg/actuation nasal spray Use 1 [place] in each nostril daily at bedtime. allopurinol [...] if symptoms fail to improve Sweetie Tyson APRN.CNP Prescription instructions reviewed with patient as applicable. [...] which included preparing to see the patient, [id number] patient care, completing clinical documentation, obtaining and/or reviewing separately obtained history, performing a medically appropriate examination, counseling and educating the pat ient/family/caregiver, and ordering medications, tests, or procedures. documented in this encounterGalion Hospital06-05-2023 History of Present illness Narrative* Isis Petty APRN.CNP - 01/31/2023 10:32 AM EDT This note was created using Consultant [employer]. Subjective Carl Gross is a 38 year [...] history is provided by the patient. No language teacher was used. Sinus Problem This is [...] (FLONASE) 50 mcg/actuation nasal spray Use 1 [place] in each nostril daily at bedtime. allopurinol [...] if symptoms persist or worsen. Isis Petty APRN.LADLE FILLER documented in this encounterGalion Hospital04-20-2023 Miscellaneous Notes* Telephone Encounter - Christy Tee LPN - 12/16/2022 8:27 AM EDT Selin from [facility] patient employer calling asking for copy of his return to work letter faxed to [phone]. Aware letter will not have signature from provider. Printed letter and faxed as requested. documented in this encounterGalion Hospital04-17-2023 History of Present illness Narrative* Sherry Sharif [...] 13, 2022 12:23 PM documented in this encounterGalion Hospital04-17-2023 History of Present illness Narrative* Shelly Broderick APRN.LADLE FILLER - 12/13/2022 11:40 AM EDT Chief Complaint Patient presents with: Sprain of left ankle HPI Carl Gross is a 37 year old male who presents here today for Above Complaints. Carl is an established patient of Dr. Horton, and myself. Seen in ER 12/05 and [...] end of the day. X-ray completed at [facility] on 12/05 --- pt wondering if [...] (FLONASE) 50 mcg/actuation nasal spray Use 1 [place] in each nostril daily at bedtime. allopurinol [...] for work given today. Will fill out [facility] paperwork for the week missed of work [...] agreeable to treatment plan. Shelly Dejesus APRN.CNP [address] [place] [address] documented in this encounterGalion Hospital04-10-2023 History of Present illness Narrative* Shelly Broderick APRN.CNP - 12/06/2022 7:40 AM EDT Chief Complaint Patient presents with: ED Follow-up HPI Carl Gross is a 37 year old male who presents here today for Above Complaints.. Carl is an established patient of Dr. Clifford DO. He is a new patient to me today. Concerns today.. ER visit yesterday to [facility] d/t LLE (L ankle) pain/injury. L [...] (FLONASE) 50 mcg/actuation nasal spray Use 1 [place] in each nostril daily at bedtime. allopurinol [...] Patient agreeable to treatment plan. Shelly Dejesus APRN.LADLE FILLER [address] [place] [address] documented in this encounterGalion Hospital04-06-2023 Miscellaneous Notes* Telephone Encounter - Tuan Puentes APRN.CNP - 12/02/2022 5:33 PM EDT Agree with below. Tuan Puentes APRN.CNP * Telephone Encounter - Magnolia Arreguin - 11/19/2022 7:42 AM EDT Advised to schedule appt Magnolia Arreguin documented in this encounterGalion Hospital03-12-2023 Discharge summary Author Reanna Cheung [facility] November 07, 2022 8:34pm Note Date/Time November 07, 2022 7:1 9pm [facility] Medical Records Department [address] [place] [address] Emergency Department Summary 11/07/22 MR#: [id number] Acct: [id number] Name: CARL GROSS Rep #:[id number] : [...] mom has a history of blood clots. [facility] <NEO Diehl - Last Filed: 11/07/22 20:34> [facility] Medical History Asthma Gout Home Medications omeprazole [...] lesions noted and no wounds <Dr. Fabrice Mcgill MD - Last Filed: 11/07/22 20:28> Physical Exam Const Vital Signs: 11/07/22 18:15 Temperature 98.2 F Temperature Source Temporal Pulse Rate 100 Respiratory Rate 18 Blood Pressure 174/94 H Blood Pressure Mean 120 Pulse Ox 100 Oxygen Delivery Method Room Air [facility] <NEO Diehl - Last Filed: 11/07/22 20:34> [facility] Narrative Medical decision making narrative: Patient presenting [...] Mcgill MD - Last Filed: 11/07/22 20:28> [facility] Lab Data Attestation: I reviewed the patient's lab results. Labs: Laboratory Results - last 24 hr 11/07/22 19:30 D-Dimer Quant (PE/DVT) < 0.27 L Treatment and Re-Evaluation Narrative: Seen and evaluated independently and in conjunction with physician commercial escrow assistant. Agree with notes above unless documented [...] your Primary Care Provider. Call [facility] ([phone]) or report to the closest Emergency Room. Call 911 if necessary. 11/07/222033 <Electronically signed by Reanna LARSON> Cosigner Signature (if applicable): 11/07/222027 <Electronically signed by Fabrice Mcgill MD> CC: Dr. Simba Horton DO ~ Signed [facility] Work Phone: 1(230) 573-736903-08-2023 Miscellaneous Notes* Telephone Encounter - Sakina Drake LPN - 11/03/2022 6:07 PM EST Patient phones requesting refills as follows: Requested Prescriptions Pending Prescriptions Disp Refills omeprazole (PRILOSEC) 40 mg capsule 30 capsule 3 Sig: Take 1 capsule by mouth once daily. STEPHON-02/03/22 Labs-01/12/22 NOV-none med filled 11/20/21 Please review and advise. Sakina Drake LPN documented in this encounterGalion Hospital03-07-2023 Nurse Note* Keke Colin RN - 11/02/2022 [...] RN In Department: GASTROENTEROLOGY documented in this encounterGalion Hospital02-09-2023 History of Present illness Narrative* Winsome Etienne APRN.LADLE FILLER - 10/07/2022 2:04 PM EST This is an Express Care eVisit note for Carl Gross eVisit/Questionnaire [...] spray 1 Each 0 Sig: Use 1 [place] in each nostril daily at bedtime. 10 mins to complete Winsome Etienne APRN.KVNG documented in this encounterGalion Hospital01-23-2023 Miscellaneous Notes* Telephone Encounter - Dena Morelos LPN - 09/20/2022 11:54 AM EST Annual physical form was brought back by the med rec dept. Pt did not pickling solution maker. Will mail form to pts home address. documented in this [facility]11-01-2022 Instructions* Patient Instructions* Robi Hendrickson MD - [...] in ~2 months - you can call [phone] to schedule Return to clinic in 4 months documented in this [facility]11-01-2022 History of Present illness Narrative* Robi Hendrickson [...] months Robi Hendrickson MD documented in this encounterGalion Hospital09-20-2022 Nurse Note* Angelica White RN - 05/18/2022 [...] RN In Department: GASTROENTEROLOGY documented in this encounterGalion Hospital09-19-2022 Miscellaneous Notes* Telephone Encounter - Simba Horton [...] Provider: SIMBA HORTON DO documented in this encounterGalion Hospital09-13-2022 Miscellaneous Notes* Telephone Encounter - Olesya Chan RN - 05/11/2022 12:49 PM EDT Attempted to reach the patient at the contact number that they provided [phone] (home) . Unable to speak with patient and call could not be connected. OLESYA Chan RN documented in this encounterGalion Hospital08-11-2022 Miscellaneous Notes* Telephone Encounter - Becca Trujillo [...] you. Becca Trujillo RN documented in this encounterGalion Hospital07-11-2022 History of Present illness Narrative* Mary Del [...] Mary Del Rio PA-C documented in this encounterGalion Hospital05-19-2022 Miscellaneous Notes* Telephone Encounter - Macy Alonzo LPN - 01/14/2022 8:47 AM EDT Left message for patient with results and recommendations.Macy Alonzo LPN * Telephone Encounter - Dinorah Smith - 01/12/2022 4:29 PM EDT Left message for patient to return call. Dinorah Smith * Telephone Encounter - Sammy Fish APRN.KVNG - 01/12/2022 2:31 PM EDT No significant abnormal findings noted on CBC or CMP. Follow-up with Dr. Horton symptoms or not improving in 2 to 3 days. Sammy Fish APRN.KVNG documented in this encounterGalion Hospital05-17-2022 Instructions* Patient Instructions* Sammy Fish APRN.CNP - [...] or become more dehydrated. documented in this encounterGalion Hospital05-17-2022 History of Present illness Narrative* Sammy Fish [...] of care. This note was generated using Nujira software. It may contain errors in wording, punctuation, or spelling. Sammy Fish APRN.KVNG documented in this encounterGalion Hospital04-12-2022 Miscellaneous Notes* Telephone Encounter - Pricilla Hatfield LPN - 12/08/2021 7:48 AM EDT Patient has [...] you. Pricilla Hatfield LPN documented in this encounterGalion Hospital05-26-2021 History of Past illness Narrative* Problem Noted Date Resolved Date Acute esophagitis 01/21/2021 01/21/2021 RUQ pain 11/19/2020 11/19/2020 documented as of this encounter (statuses as of 12/08/2021) [facility] of [facility] Narrative* Problem Noted Date Resolved Date Acute esophagitis 01/21/2021 01/21/2021 RUQ pain 11/19/2020 11/19/2020 documented as of this encounter (statuses as of 01/13/2022) [facility] Narrative* Problem Noted Date Resolved Date Acute esophagitis 01/21/2021 01/21/2021 RUQ pain 11/19/2020 11/19/2020 documented as of this encounter (statuses as of 01/14/2022) [facility] Narrative* Problem Noted Date Resolved Date Acute esophagitis 01/21/2021 01/21/2021 RUQ pain 11/19/2020 11/19/2020 documented as of this encounter (statuses as of 03/08/2022) [facility] Narrative* Problem Noted Date Resolved Date Acute esophagitis 01/21/2021 01/21/2021 RUQ pain 11/19/2020 11/19/2020 documented as of this encounter (statuses as of 04/08/2022) [facility] Narrative* Problem Noted Date Resolved Date Acute esophagitis 01/21/2021 01/21/2021 RUQ pain 11/19/2020 11/19/2020 documented as of this encounter (statuses as of 05/11/2022) [facility] Narrative* Problem Noted Date Resolved Date Acute esophagitis 01/21/2021 01/21/2021 RUQ pain 11/19/2020 11/19/2020 documented as of this encounter (statuses as of 05/19/2022) [facility] Narrative* Problem Noted Date Resolved Date Acute esophagitis 01/21/2021 01/21/2021 RUQ pain 11/19/2020 11/19/2020 documented as of this encounter (statuses as of 05/20/2022) [facility] Narrative* Problem Noted Date Resolved Date Acute esophagitis 01/21/2021 01/21/2021 RUQ pain 11/19/2020 11/19/2020 documented as of this encounter (statuses as of 06/29/2022) [facility] Narrative* Problem Noted Date Resolved Date Acute esophagitis 01/21/2021 01/21/2021 RUQ pain 11/19/2020 11/19/2020 documented as of this encounter (statuses as of 09/20/2022) [facility] Narrative* Problem Noted Date Resolved Date Acute esophagitis 01/21/2021 01/21/2021 RUQ pain 11/19/2020 11/19/2020 documented as of this encounter (statuses as of 10/07/2022) [facility] Narrative* Problem Noted Date Resolved Date Acute esophagitis 01/21/2021 01/21/2021 RUQ pain 11/19/2020 11/19/2020 documented as of this encounter (statuses as of 11/03/2022) [address]26-2021 History of Past illness Narrative* Problem Noted Date Resolved Date Acute esophagitis 01/21/2021 01/21/2021 RUQ pain 11/19/2020 11/19/2020 documented as of this encounter (statuses as of 11/04/2022) [address]26-2021 History of Past illness Narrative* Problem Noted Date Resolved Date Acute esophagitis 01/21/2021 01/21/2021 RUQ pain 11/19/2020 11/19/2020 documented as of this encounter (statuses as of 11/27/2022) [facility]* Problem Noted Date Resolved Date Acute esophagitis 01/21/2021 01/21/2021 RUQ pain 11/19/2020 11/19/2020 documented as of this encounter (statuses as of 12/03/2022) [facility]* Problem Noted Date Resolved Date Acute esophagitis 01/21/2021 01/21/2021 RUQ pain 11/19/2020 11/19/2020 documented as of this encounter (statuses as of 12/06/2022) [facility]* Problem Noted Date Resolved Date Acute esophagitis 01/21/2021 01/21/2021 RUQ pain 11/19/2020 11/19/2020 documented as of this encounter (statuses as of 12/07/2022) [address]26-2021 History of Past illness Narrative* Problem Noted Date Resolved Date Acute esophagitis 01/21/2021 01/21/2021 RUQ pain 11/19/2020 11/19/2020 documented as of this encounter (statuses as of 12/13/2022) [address]26-2021 History of Past illness Narrative* Problem Noted Date Resolved Date Acute esophagitis 01/21/2021 01/21/2021 RUQ pain 11/19/2020 11/19/2020 documented as of this encounter (statuses as of 12/16/2022) [facility]* Problem Noted Date Resolved Date Acute esophagitis 01/21/2021 01/21/2021 RUQ pain 11/19/2020 11/19/2020 documented as of this encounter (statuses as of 01/31/2023) [facility]* Problem Noted Date Resolved Date Acute esophagitis 01/21/2021 01/21/2021 RUQ pain 11/19/2020 11/19/2020 documented as of this encounter (statuses as of 02/02/2023) [facility]* Problem Noted Date Resolved Date Acute esophagitis 01/21/2021 01/21/2021 RUQ pain 11/19/2020 11/19/2020 documented as of this encounter (statuses as of 02/14/2023) [facility]* Problem Noted Date Resolved Date Acute esophagitis 01/21/2021 01/21/2021 RUQ pain 11/19/2020 11/19/2020 documented as of this encounter (statuses as of 02/25/2023) [facility]* Problem Noted Date Diagnosed Date Resolved Date Acute esophagitis 01/21/2021 01/21/2021 RUQ pain 11/19/2020 11/19/2020 documented as of this encounter (statuses as of 03/30/2023) [facility]* Problem Noted Date Diagnosed Date Resolved Date Acute esophagitis 01/21/2021 01/21/2021 RUQ pain 11/19/2020 11/19/2020 documented as of this encounter (statuses as of 03/31/2023) [facility]* Problem Noted Date Diagnosed Date Resolved Date Acute esophagitis 01/21/2021 01/21/2021 RUQ pain 11/19/2020 11/19/2020 documented as of this encounter (statuses as of 03/31/2023) [facility]* Problem Noted Date Diagnosed Date Resolved Date Acute esophagitis 01/21/2021 01/21/2021 RUQ pain 11/19/2020 11/19/2020 documented as of this encounter (statuses as of 04/01/2023) [facility]* Problem Noted Date Diagnosed Date Resolved Date Acute esophagitis 01/21/2021 01/21/2021 RUQ pain 11/19/2020 11/19/2020 documented as of this encounter (statuses as of 04/08/2023) [facility]* Problem Noted Date Diagnosed Date Resolved Date Acute esophagitis 01/21/2021 01/21/2021 RUQ pain 11/19/2020 11/19/2020 documented as of this encounter (statuses as of 04/09/2023) [facility]* Problem Noted Date Diagnosed Date Resolved Date Acute esophagitis 01/21/2021 01/21/2021 RUQ pain 11/19/2020 11/19/2020 documented as of this encounter (statuses as of 04/26/2023) [facility]* Problem Noted Date Diagnosed Date Resolved Date Acute esophagitis 01/21/2021 01/21/2021 RUQ pain 11/19/2020 11/19/2020 documented as of this encounter (statuses as of 05/05/2023) [facility]* Problem Noted Date Diagnosed Date Resolved Date Acute esophagitis 01/21/2021 01/21/2021 RUQ pain 11/19/2020 11/19/2020 documented as of this encounter (statuses as of 05/05/2023) [facility]* Problem Noted Date Diagnosed Date Resolved Date Acute esophagitis 01/21/2021 01/21/2021 RUQ pain 11/19/2020 11/19/2020 documented as of this encounter (statuses as of 05/05/2023) [facility]* Problem Noted Date Diagnosed Date Resolved Date Acute esophagitis 01/21/2021 01/21/2021 RUQ pain 11/19/2020 11/19/2020 documented as of this encounter (statuses as of 05/19/2023) [address]26-[address]21 History of Past illness Narrative* Problem Noted Date Diagnosed Date Resolved Date Acute esophagitis 01/21/2021 01/21/2021 RUQ pain 11/19/2020 11/19/2020 documented as of this encounter (statuses as of 05/21/2023) [facility]* Problem Noted Date Diagnosed Date Resolved Date Acute esophagitis 01/21/2021 01/21/2021 RUQ pain 11/19/2020 11/19/2020 documented as of this encounter (statuses as of 07/05/2023) [facility]* Problem Noted Date Diagnosed Date Resolved Date Acute esophagitis 01/21/2021 01/21/2021 RUQ pain 11/19/2020 11/19/2020 documented as of this encounter (statuses as of 07/13/2023) [facility]* Problem Noted Date Diagnosed Date Resolved Date Acute esophagitis 01/21/2021 01/21/2021 RUQ pain 11/19/2020 11/19/2020 documented as of this encounter (statuses as of 07/20/2023) [facility]* Problem Noted Date Diagnosed Date Resolved Date Acute esophagitis 01/21/2021 01/21/2021 RUQ pain 11/19/2020 11/19/2020 documented as of this encounter (statuses as of 08/02/2023) [facility]* Problem Noted Date Diagnosed Date Resolved Date Acute esophagitis 01/21/2021 01/21/2021 RUQ pain 11/19/2020 11/19/2020 documented as of this encounter (statuses as of 08/03/2023) [facility]* Problem Noted Date Diagnosed Date Resolved Date Acute esophagitis 01/21/2021 01/21/2021 RUQ pain 11/19/2020 11/19/2020 documented as of this encounter (statuses as of 08/03/2023) [address]26-[address]21 History of Past illness Narrative* Problem Noted Date Diagnosed Date Resolved Date Acute esophagitis 01/21/2021 01/21/2021 RUQ pain 11/19/2020 11/19/2020 documented as of this encounter (statuses as of 10/11/2023) [address]26-2021 History of Past illness Narrative* Problem Noted Date Diagnosed Date Resolved Date Acute esophagitis 01/21/2021 01/21/2021 RUQ pain 11/19/2020 11/19/2020 documented as of this encounter (statuses as of 10/12/2023) [facility]-26-2021 History of Past illness Narrative* Problem Noted Date Diagnosed Date Resolved Date Acute esophagitis 01/21/2021 01/21/2021 RUQ pain 11/19/2020 11/19/2020 documented as of this encounter (statuses as of 10/13/2023) [address]26-2021 History of Past illness Narrative* Problem Noted Date Diagnosed Date Resolved Date Acute esophagitis 01/21/2021 01/21/2021 RUQ pain 11/19/2020 11/19/2020 documented as of this encounter (statuses as of 10/31/2023) [facility]-26-2021 History of Past illness Narrative* Problem Noted Date Diagnosed Date Resolved Date Acute esophagitis 01/21/2021 01/21/2021 RUQ pain 11/19/2020 11/19/2020 documented as of this encounter (statuses as of 11/08/2023) [address]26-2021 History of Past illness Narrative* Problem Noted Date Diagnosed Date Resolved Date Acute esophagitis 01/21/2021 01/21/2021 RUQ pain 11/19/2020 11/19/2020 documented as of this encounter (statuses as of 11/11/2023) [address]26-2021 History of Past illness Narrative* Problem Noted Date Diagnosed Date Resolved Date Acute esophagitis 01/21/2021 01/21/2021 RUQ pain 11/19/2020 11/19/2020 documented as of this encounter (statuses as of 11/29/2023) [facility]-26-2021 History of Past illness Narrative* Problem Noted Date Diagnosed Date Resolved Date Acute esophagitis 01/21/2021 01/21/2021 RUQ pain 11/19/2020 11/19/2020 documented as of this encounter (statuses as of 12/08/2023) [facility]-26-2021 History of Past illness Narrative* Problem Noted Date Diagnosed Date Resolved Date Acute esophagitis 01/21/2021 01/21/2021 RUQ pain 11/19/2020 11/19/2020 documented as of this encounter (statuses as of 12/09/2023) [facility]-2021 History of Past illness Narrative* Problem Noted Date Diagnosed Date Resolved Date Acute esophagitis 01/21/2021 01/21/2021 RUQ pain 11/19/2020 11/19/2020 documented as of this encounter (statuses as of 12/14/2023) [facility]21 History of Past illness Narrative* Problem Noted Date Diagnosed Date Resolved Date Acute esophagitis 01/21/2021 01/21/2021 RUQ pain 11/19/2020 11/19/2020 documented as of this encounter (statuses as of 12/14/2023) [facility]21 History of Past illness Narrative* Problem Noted Date Diagnosed Date Resolved Date Acute esophagitis 01/21/2021 01/21/2021 RUQ pain 11/19/2020 11/19/2020 documented as of this encounter (statuses as of 12/16/2023) [facility]21 History of Past illness Narrative* Problem Noted Date Diagnosed Date Resolved Date Acute esophagitis 01/21/2021 01/21/2021 RUQ pain 11/19/2020 11/19/2020 documented as of this encounter (statuses as of 12/02/2023) [facility]03-24-2021 NoteHNO ID: [id number] Author: Robi Wilde Service: ? Author Type: Nurse Vender Type: Anesthesia Procedure Notes Filed: 11/19/2020 8:01 AM Note Text: ANESTHESIOLOGY PROCEDURE NOTE Airway General Information Procedure Start Time/Medication Administration: 11/19/2020 7:39 AM Patient location during procedure: OR Timeout Performed Pre-procedure: timeout performed Consent Obtained: Yes Patient identity confirmed: arm band and patient Staffing LOCAL SALES ASSOCIATE: Robi Wilde Performed by: JOHNNY Indications and Patient Condition Preoxygenated: yes Patient [...] intubation: no Airway not difficult SIGNATURE: Robi Wilde, PROMOTIONS ASSISTANT.JOHNNY PATIENT NAME: Carl Gross DATE: November 19, 2020 TIME: 8:00 AM CSN: [id number] Diagnosis Abdominal pain, unspecified abdominal location Abdominal spasms Abdominal pain, unspecified site documented in this encounter [facility] note* Diagnosis Diarrhea, unspecified type- Primary documented in this encounter [facility] note* Diagnosis Diarrhea, unspecified type- Primary URI, acute Acute upper respiratory infections of unspecified site Mild intermittent asthma, uncomplicated Unspecified asthma documented in this encounter [facility] note* Diagnosis Eosinophilic esophagitis documented in this encounter [facility] note* Diagnosis Esophagitis, eosinophilic- Primary Eosinophilic esophagitis documented in this encounter [facility] note* Diagnosis Viral syndrome- Primary Unspecified viral infection, in conditions classified elsewhere and of unspecified site documented in this encounter [facility] note* Diagnosis Esophagitis, eosinophilic Eosinophilic esophagitis documented in this encounter [facility] note* Diagnosis Acute esophagitis documented in this encounter [facility] noteNo assessment information availableWUniversity [facility] Work Phone: Evaluation note* Diagnosis Sprain of ligament of left ankle, subsequent encounter- Primary Injury of left ankle, subsequent encounter Elevated BP without diagnosis of hypertension documented in this encounter [facility] note* Diagnosis Injury of left ankle, subsequent encounter- Primary Sprain of ligament of left ankle, subsequent encounter [facility] Diagnosis Rhinosinusitis- Primary Unspecified sinusitis (chronic) [facility] Diagnosis Mild intermittent asthma, uncomplicated- Primary Unspecified asthma Acute non-recurrent maxillary sinusitis [facility]* Diagnosis Acute non-recurrent maxillary sinusitis documented in this encounter [facility] note* Diagnosis Acute non-recurrent maxillary sinusitis Mild intermittent asthma, uncomplicated Unspecified asthma [facility]* Diagnosis Eosinophilic esophagitis [facility]* Diagnosis Acute esophagitis [facility]* Diagnosis Well adult exam- Primary Routine general medical examination at a [facility] care facility Acute esophagitis Eosinophilic esophagitis Chronic gout of multiple sites, unspecified cause Chronic pain of both shoulders Pain in joint, shoulder region Bunion of great toe of left foot Bunion documented in this encounter [facility] note* Diagnosis Testosterone deficiency- Primary Other testicular hypofunction [facility] Diagnosis Low testosterone- Primary Other testicular hypofunction [facility]* Diagnosis Dysthymia Dysthymic disorder THA (generalized anxiety disorder) Generalized anxiety disorder [facility]* Diagnosis Low testosterone Other testicular hypofunction [facility]* Diagnosis Esophageal stenosis Stricture and stenosis of esophagus documented [facility]* Diagnosis Eosinophilic esophagitis- Primary documented [facility]* Diagnosis Exacerbation of asthma, unspecified asthma severity, unspecified whether persistent- Primary [facility]* Diagnosis Flu-like symptoms- Primary Other general symptoms Sore throat Acute pharyngitis documented [facility]* Diagnosis Flu-like symptoms Other general symptoms [facility]* Diagnosis Eosinophilic esophagitis- Primary [facility]* Diagnosis Preop examination- Primary Preoperative examination, unspecified Mild intermittent asthma without complication Unspecified asthma GERD without esophagitis Esophageal reflux Chronic gout of multiple sites, unspecified cause THA (generalized anxiety disorder) Generalized anxiety disorder documented [facility]* Diagnosis Acute right-sided low back pain with right-sided sciatica documented in this encounter [facility] note* Diagnosis Eosinophilic esophagitis documented in this encounter [facility] note* Diagnosis Eosinophilic esophagitis- Primary documented in this encounter [facility] note* Diagnosis Mild intermittent asthma without complication- [...] cough or SOB documented in this encounter [facility] note* Diagnosis Eosinophilic esophagitis documented in this encounter [facility] note* Diagnosis Preop examination- Primary Preoperative examination, [...] of hand- Primary documented in this encounter [facility] note* Diagnosis Preop examination- Primary Preoperative examination, [...] with right-sided sciatica documented in this encounter [facility] note* Diagnosis Preop examination- Primary Preoperative examination, [...] Other anxiety states documented in this encounter [facility] note* Diagnosis Preop examination- Primary Preoperative examination, [...] and gas pain documented in this encounter [facility] note* Diagnosis Sprain of ligament of left [...] Generalized anxiety disorder documented in this encounter [facility] note* Diagnosis Preop examination- Primary Preoperative examination, [...] disorder Eosinophilic esophagitis documented in this encounter [facility] note* Diagnosis Situational anxiety- Primary Other anxiety states documented in this encounter [facility] note* Diagnosis Preop examination- Primary Preoperative examination, [...] throat Acute cough documented in this encounter [facility] note* Diagnosis Preop examination- Primary Preoperative examination, [...] disorder Acute cough documented in this encounter [facility] note* Diagnosis Preop examination- Primary Preoperative examination, [...] NO SHOW- Primary documented in this encounter [facility] note* Diagnosis Preop examination- Primary Preoperative examination, [...] with depressed mood documented in this encounter [facility] note* Diagnosis Preop examination- Primary Preoperative examination, [...] or maintaining sleep documented in this encounter [facility] note* Diagnosis Preop examination- Primary Preoperative examination, [...] Other anxiety states documented in this encounter [facility] note* Diagnosis Preop examination- Primary Preoperative examination, [...] rectum and anus documented in this encounter [facility] note* Diagnosis Preop examination- Primary Preoperative examination, [...] rectum and anus documented in this encounter [facility] note* Diagnosis Preop examination- Primary Preoperative examination, [...] rectum and anus documented in this encounter [facility] note* Diagnosis Preop examination- Primary Preoperative examination, [...] Other anxiety states documented in this encounter [facility] note* Diagnosis Preop examination- Primary Preoperative examination, [...] Nausea Nausea alone [facility]* Diagnosis Preop examination- [...] unspecified type- Primary documented in this encounter [facility] note* Diagnosis Preop examination- Primary Preoperative examination, [...] Dysphagia, pharyngoesophageal phase documented in this encounter [facility] note* Diagnosis Preop examination- Primary Preoperative examination, [...] mention of complication documented in this encounter [facility] note* Diagnosis Preop examination- Primary Preoperative examination, [...] or maintaining sleep documented in this encounter [facility] note* Diagnosis Preop examination- Primary Preoperative examination, [...] phase Eosinophilic esophagitis documented in this encounter [facility] note* Diagnosis Preop examination- Primary Preoperative examination, [...] Arthralgia, unspecified joint [facility]* Diagnosis Preop examination- [...] leg edema Edema documented in this encounter [facility] note* Diagnosis Preop examination- Primary Preoperative examination, [...] Other anxiety states documented in this encounter [facility] note* Diagnosis Preop examination- Primary Preoperative examination, [...] aches Generalized pain documented in this encounter [facility] note* Diagnosis Preop examination- Primary Preoperative examination, [...] aches Generalized pain [facility] Preop examination- Primary Preoperative examination, [...] disorder Eosinophilic esophagitis documented in this encounter [facility] Discharge instructions Additional Instructions I would treat this as an ankle sprain with rest, ice, elevation, ibuprofen every 6 hours as needed. Use the Aircast until its feeling improved.[facility] Work Phone: Reason for referral (narrative)* Outpatient Procedure (Routine) - Closed Specialty Diagnoses / Procedures Referred By Kourtney velasquez Referred To Contact [facility] Diagnoses Eosinophilic esophagitis Procedures EGD - THERAPEUTIC, EUS, OR TUBE INTERVENTIONS EGD DILATION GASTRIC/DUODENAL STRICTURE Robi Hendrickson MD [address] [facility] [place] [phone] [facility] [place] [address] Referral ID Status Reason Start Date Expiration Date V isits Requested Visits Authorized [id number] Closed Auto-Generate d Referral 11/30/2021 11/30/2022 1 1 [facility] for referral (narrative)* Outpatient Procedure (Routine) - Pending Review Specialty Diagnoses / Procedures Referred By Kourtney velasquez Referred To Contact [facility] Diagnoses Esophagitis, eosinophilic Procedures EGD - THERAPEUTIC, EUS, OR TUBE INTERVENTIONS EGD DILATION GASTRIC/DUODENAL STRICTURE Robi Hendrickson MD [address] [facility] [place] [phone] [address] Referral ID Status Reason Start Date Expiration Date Visits Requested Visits Authorized [id number] Pending Review Auto-Generat ed Referral 06/29/2022 06/29/2023 1 1 [facility] for referral (narrative)* Outpatient Procedure (Routine) - Closed Specialty Diagnoses / Procedures Referred By Kourtney t Referred To Contact [facility] Diagnoses Esophagitis, eosinophilic Procedures EGD - THERAPEUTIC, EUS, OR TUBE INTERVENTIONS EGD DILATION GASTRIC/DUODENAL STRICTURE Robi Hendrickson MD [address] [place] [address] [facility] [place] [facility] [place] [address] Referral ID Status Reason Start Date Expiration Date V isits Requested Visits Authorized [id number] Closed Auto-Generate d Referral 06/29/2022 06/29/2023 1 1 [facility] for referral (narrative)* Diagnostic Procedure Only (Routine) - Closed Specialty Diagnoses / Procedures Referred By Kourtney t Referred To Contact XR IMAGING Diagnoses Sprain of ligament of left ankle, subsequent encounter Injury of left ankle, subsequent encounter Procedures XR ANKLE GENERAL 3V AP/LAT/OBL LEFT RADEX ANKLE COMPLETE MINIMUM 3 VIEWS Shelly Broderick APRN.CNP [address] [place] [address] Xr Imaging Referral ID Status Reason Start Date Expiration Date V isits Requested Visits Authorized [id number] Closed Auto-Generate d Referral 12/13/2022 01/12/2024 1 1 [facility] for referral (narrative)* Outpatient Procedure (Routine) - Closed Specialty Diagnoses / Procedures Referred By Contac t Referred To Contact ENDOSCOPY Diagnoses Eosinophilic esophagitis Procedures EGD - THERAPEUTIC, EUS, OR TUBE INTERVENTIONS EGD DILATION GASTRIC/DUODENAL STRICTURE Robi Hendrickson MD [address] [place] [address] [facility] Endoscopy [address] [address] Referral ID Status Reason Start Date Expiration Date V isits Requested Visits Authorized [id number] Closed Auto-Generate d Referral 03/11/2023 03/11/2024 1 1 [facility] for referral (narrative)* Outpatient Procedure (Routine) - Closed Specialty Diagnoses / Procedures Referred By Contac t Referred To Contact [facility] Diagnoses Esophageal stenosis Procedures EGD - THERAPEUTIC, EUS, OR TUBE INTERVENTIONS EGD DILATION GASTRIC/DUODENAL STRICTURE Robi Hendrickson MD [address] [place] [address] [address] Referral ID Status Reason Start Date Expiration Date V isits Requested Visits Authorized [id number] Closed Auto-Generate d Referral 07/12/2023 08/28/2023 1 1 [facility] for referral (narrative)* Outpatient Procedure (Routine) - Pending Review Specialty Diagnoses / Procedures Referred By Kourtney t Referred To [facility] Diagnoses Eosinophilic esophagitis Procedures EGD - THERAPEUTIC, EUS, OR TUBE INTERVENTIONS EGD DILATION GASTRIC/DUODENAL STRICTURE Robi Hendrickson MD [address] [place] [address] [address] Referral ID Status Reason Start Date Expiration Date Visits Requested Visits Authorized [id number] Pending Review Auto-Generat ed Referral 11/07/2023 11/06/2024 1 1 [facility] for referral (narrative)* Outpatient Procedure (Routine) - Closed Specialty Diagnoses / Procedures Referred By Contac t Referred To [facility] Diagnoses Eosinophilic esophagitis Procedures EGD - THERAPEUTIC, EUS, OR TUBE INTERVENTIONS EGD DILATION GASTRIC/DUODENAL STRICTURE Robi Hendrickson MD [address] [place] [address] [place] [phone] Referral ID Status Reason Start Date Expiration Date V isits Requested Visits Authorized [id number] Closed Auto-Generate d Referral 12/20/2023 08/28/2024 1 1 [facility] for referral (narrative)* Outpatient Procedure (Routine) - Pending Review Specialty Diagnoses / Procedures Referred By Contac t Referred To Contact [facility] Diagnoses Eosinophilic esophagitis Procedures EGD - THERAPEUTIC, EUS, OR TUBE INTERVENTIONS EGD DILATION GASTRIC/DUODENAL STRICTURE Robi Hendrickson MD [address] [place], [place] [phone] [place] [phone] Referral ID Status Reason Start Date Expiration Date Visits Requested Visits Authorized [id number] Pending Review Auto-Generat ed Referral 02/14/2024 02/13/2025 1 1 [facility] for referral (narrative)* Outpatient Procedure (Routine) - Closed Specialty Diagnoses / Procedures Referred By Contac t Referred To Contact [facility] Diagnoses Eosinophilic esophagitis Procedures EGD - THERAPEUTIC, EUS, OR TUBE INTERVENTIONS EGD DILATION GASTRIC/DUODENAL STRICTURE Robi Hendrickson MD [address] [place] [phone] [place] [phone] Referral ID Status Reason Start Date Expiration Date V isits Requested Visits Authorized [id number] Closed Auto-Generate d Referral 02/16/2024 08/28/2024 1 1 [facility] for referral (narrative)* Outpatient Procedure (Routine) - Pending Review Specialty Diagnoses / Procedures Referred By Contac t Referred To [facility] Diagnoses Numbness and tingling of hand Procedures EMG(NEURO/NI) NERVE CONDUCTION STUDIES 9-10 STUDIES Sweetie Tyson APRN.LADLE FILLER [address] [place] [address] [facility] [place] [address] [place] [address] Referral ID Status Reason Start Date Expiration Date Visits Requested Visits Authorized [id number] Pending Review Auto-Generat ed Referral 04/18/2024 04/18/2025 1 1 [facility] for referral (narrative)* Diagnostic Procedure Only (Routine) - Closed Specialty Diagnoses / Procedures Referred By Danielleac t Referred To Contact XR IMAGING Diagnoses Sprain of ligament of left ankle, subsequent encounter Injury of left ankle, subsequent encounter Procedures XR ANKLE GENERAL 3V AP/LAT/OBL LEFT RADEX ANKLE COMPLETE MINIMUM 3 VIEWS Shelly Broderick APRN.CNP [address] [place] [address] Xr Imaging [facility] [address] Referral ID Status Reason Start Date Expiration Date V isits Requested Visits Authorized [id number] Closed Auto-Generate d Referral 12/13/2022 01/12/2024 1 1 [facility] for referral (narrative)* Outpatient Procedure (Routine) - Closed Specialty Diagnoses / Procedures Referred By Danielleac t Referred To Contact [facility] Diagnoses Eosinophilic esophagitis Procedures EGD - THERAPEUTIC, EUS, OR TUBE INTERVENTIONS EGD DILATION GASTRIC/DUODENAL STRICTURE Robi Hendrickson MD [address] [place] [address] [facility] [place] [address] [place] [address] Referral ID Status Reason Start Date Expiration Date V isits Requested Visits Authorized [id number] Closed Auto-Generate d Referral 05/17/2024 08/28/2024 1 1 [facility] for referral (narrative)No reason for referral information availableWUniversity [facility]als [facility] Work Phone: Reason for visit Narrative* Outpatient Procedure (Routine) - Closed Specialty Diagnoses / Procedures Referred By Contac t Referred To Contact [facility] Diagnoses Eosinophilic esophagitis Procedures EGD - THERAPEUTIC, EUS, OR TUBE INTERVENTIONS EGD DILATION GASTRIC/DUODENAL STRICTURE Robi Hendrickson MD [address] [place] [address] [place] [phone] Referral ID Status Reason Start Date Expiration Date V isits Requested Visits Authorized [id number] Closed Auto-Generate d Referral 11/30/2021 11/30/2022 1 1 [facility] for visit Narrative* Outpatient Procedure (Routine) - Closed Specialty Diagnoses / Procedures Referred By Kourtney t Referred To Contact [facility] Diagnoses Esophagitis, eosinophilic Procedures EGD - THERAPEUTIC, EUS, OR TUBE INTERVENTIONS EGD DILATION GASTRIC/DUODENAL STRICTURE Robi Hendrickson MD [facility] [place] [address] [place] [address] Referral ID Status Reason Start Date Expiration Date V isits Requested Visits Authorized [id number] Closed Auto-Generate d Referral 06/29/2022 06/29/2023 1 1 [facility] for visit Narrative* Outpatient Procedure (Routine) - Closed Specialty Diagnoses / Procedures Referred By Kourtney t Referred To Contact ENDOSCOPY Diagnoses Eosinophilic esophagitis Procedures EGD - THERAPEUTIC, EUS, OR TUBE INTERVENTIONS EGD DILATION GASTRIC/DUODENAL STRICTURE Robi Hendrickson MD [address] [place] [address] [facility] [address] [place] [phone] Referral ID Status Reason Start Date Expiration Date V isits Requested Visits Authorized [id number] Closed Auto-Generate d Referral 03/11/2023 03/11/2024 1 1 [facility] for visit Narrative* Outpatient Procedure (Routine) - Closed Specialty Diagnoses / Procedures [facility] Referred To Contact [facility] Diagnoses Esophageal stenosis Procedures EGD - THERAPEUTIC, EUS, OR TUBE INTERVENTIONS EGD DILATION GASTRIC/DUODENAL STRICTURE Robi Hendrickson MD [address] [place] [address] [address] Referral ID Status Reason Start Date Expiration Date V isits Requested Visits Authorized [id number] Closed Auto-Generate d Referral 07/12/2023 08/28/2023 1 1 [facility] for visit Narrative* Outpatient Procedure (Routine) - Closed Specialty Diagnoses / Procedures Referred By Contac t Referred To Contact [facility] Diagnoses Eosinophilic esophagitis Procedures EGD - THERAPEUTIC, EUS, OR TUBE INTERVENTIONS EGD DILATION GASTRIC/DUODENAL STRICTURE Robi Hendrickson MD [address] [place], [place] [id number] [place] [phone] Referral ID Status Reason Start Date Expiration Date V isits Requested Visits Authorized [id number] Closed Auto-Generate d Referral 12/20/2023 08/28/2024 1 1 [facility] for visit Narrative* Outpatient Procedure (Routine) - Closed Specialty Diagnoses / Procedures Referred By Contac t Referred To Contact [facility] Diagnoses Eosinophilic esophagitis Procedures EGD - THERAPEUTIC, EUS, OR TUBE INTERVENTIONS EGD DILATION GASTRIC/DUODENAL STRICTURE Robi Hendrickson MD [address] [place] [id number] [place] [phone] Referral ID Status Reason Start Date Expiration Date V isits Requested Visits Authorized [id number] Closed Auto-Generate d Referral 02/16/2024 08/28/2024 1 1 [facility] for visit Narrative* Diagnostic Procedure Only (Routine) - Closed Specialty Diagnoses / Procedures Referred By Contac t Referred To Contact XR IMAGING Diagnoses Sprain of ligament of left ankle, subsequent encounter Injury of left ankle, subsequent encounter Procedures XR ANKLE GENERAL 3V AP/LAT/OBL LEFT RADEX ANKLE COMPLETE MINIMUM 3 VIEWS Shelly Broderick, PROMOTIONS ASSISTANT.LADLE FILLER [address] [place] [address] Xr Imaging [facility] [address] Referral ID Status Reason Start Date Expiration Date V isits Requested Visits Authorized [id number] Closed Auto-Generate d Referral 12/13/2022 01/12/2024 1 1 [facility] for visit Narrative* Outpatient Procedure (Routine) - Closed Specialty Diagnoses / Procedures Referred By Kourtney t Referred To [facility] Diagnoses Eosinophilic esophagitis Procedures EGD - THERAPEUTIC, EUS, OR TUBE INTERVENTIONS EGD DILATION GASTRIC/DUODENAL STRICTURE Robi Hendrickson MD [address] [place], [place] [id number] [facility] Disease [place] [phone] Referral ID Status Reason Start Date Expiration Date V isits Requested Visits Authorized [id number] Closed Auto-Generate d Referral 05/17/2024 08/28/2024 1 1 [facility] for visit Narrative* Outpatient Procedure (Routine) - Closed Specialty Diagnoses / Procedures Referred By Kourtney velasquez Referred To Contact [facility] Diagnoses Rectal bleeding Procedures COLONOSCOPY DIAGNOSTIC COLONOSCOPY FLX DX W/COLLJ SPEC WHEN PFRMD Robi Hendrickson MD [address] [place], [place] [id number] Phone: tel: fax: [facility] [place] [phone] Referral ID Status Reason Start Date Expiration Date V isits Requested Visits Authorized [id number] Closed Auto-Generate d Referral 11/06/2024 11/06/2025 1 1 [facility] for visit Narrative* Outpatient Procedure (Routine) - Pending Review Specialty Diagnoses / Procedures Referred By Kourtney velasquez Referred To Contact [facility] Diagnoses Eosinophilic esophagitis Procedures EGD - THERAPEUTIC, EUS, OR TUBE INTERVENTIONS EGD DILATION GASTRIC/[place] [address] [place] [id number] Phone: tel: fax: [facility] [address] [address] Referral ID Status Reason Start Date Expiration Date Visits Requested Visits Authorized [id number] Pending Review Auto-Genera florinda Referral Patient Cleared - Admin/Chair man/Directo r advise to proceed or did not respond 12/19/2024 12/19/2025 1 1 [facility] Summary Purpose Family History No Family History Records FoundNo Family History Records FoundNo Family History Records FoundNo Family History Records FoundNo Family History Records FoundNo Family History Records Found Advance Directives No Advanced Directives Records FoundDocuments on File Type Date Recorded Patient Recruit Instructor Expl anation Advance Directive(s) 01/21/2021 8:17 AM Advance Directive(s) 11/19/2020 12:30 PM Advance Directive(s) 10/22/2020 9:11 AM Advance Directive(s) 05/20/2018 1:09 PM Advance Directive Response Recorded Date/ Time Advance Directives No October 05, 2019 1:34pm Living Will No November 07, 2022 7:33pm Power of Rail Operator No November 07 7:33pm Advance Directive Response Recorded Date/ Time Advance Directives No October 05, 2019 1:34pm Living Will No December 05, 2022 5:28pm Power of Rail Operator No December 05 5:28pm Advance Directive Response Recorded Date/ Time Advance Directives No October 05, 2019 1:34pm Living Will No October 04 11:21am Power of Rail Operator No October 04, 2023 11:21am Advance Directive Response Recorded Date/ Time Living Will No September 16 12:46am Do you have a Healthcare Power of Rail Operator? No September 16, 2024 12:46am Living Will No November 27, 2024 3:48pm Do you have a Healthcare Power of Rail Operator? No November 27, 2024 3:48pm Advance Directives No October 05, 2019 1:34pm Advance Directive Response Recorded Date/ Time Advance [...] Chief Complaint Admit Date PE/NON DOT/DRUG SCREEN/PRC KANCHAN Good mber 2023 8:50am l knee September 15, 2024 1 1:46pm SWELLING IN KNEE November 27, 2024 3:36 pm Chief Complaint Admit Date LEFT FOOT PAIN May 11, 2025 7:39am Reason for Referral Specialty Diagnoses / Procedures Referred By Kourtney t Referred To Contact Endocrinology Diagnoses Low testosterone Procedures CONSULT TO ENDOCRINOLOGY OFFICE/OUTPATIENT NEW HIGH MDM 60-74 MINUTES Simba Horton, DO [address] [place] [address] Referral ID Status Reason Start Date Expiration Date Visits Requested Visits Authorized [id number] Authorized PCP Requested Referral 05/18/2023 05/17/2024 1 1 Additional Source Comments (unrecognized sect ion and content) No Status Records FoundNo Status Records FoundNo Status Records FoundNo Status Records FoundNo Status Records FoundNo Status Records Found INFORMATION SOURCE (unrecogn ized section and content) DATE CREATED AUTHOR 06/18/2018 [facility] DATE CREATED AUTHOR AUTHOR'S ORGANIZ ATION 07/19/2018 [facility] DATE CREATED AUTHOR AUTHOR'S ORGANIZ ATION 01/24/2021 [facility] DATE CREATED AUTHOR AUTHOR'S ORGANIZ ATION 06/08/2025 [facility] DATE CREATED AUTHOR AUTHOR'S ORGANIZ ATION 07/02/[address] [facility] DATE CREATED AUTHOR AUTHOR'S ORGANIZ ATION 07/03/2025 [facility] Source Comments (unrecognize d section and content) In the event this informatio n is protected by the Federal Confidentiality of Alcohol and Drug Abuse Patient Records regulations: The Federal rules restrict any use of the information to criminally investigate or prosecute any alcohol or drug abuse patient.[facility] the event this information is protected by the Federal Confidentiality of Alcohol and Drug Abuse Patient Records regulations: The Federal rules restrict any use of the information to criminally investigate or prosecute any alcohol or drug abuse patient.[facility] HospitalIn the event this information is protected by the Federal Confidentiality of Alcohol and Drug Abuse Patient Records regulations: The Federal rules restrict any use of the information to criminally investigate or prosecute any alcohol or drug abuse patient.[facility] HospitalIn the event this information is protected by the Federal Confidentiality of Alcohol and Drug Abuse Patient Records regulations: The Federal rules restrict any use of the information to criminally investigate or prosecute any alcohol or drug abuse patient.[facility] HospitalIn the event this information is protected by the Federal Confidentiality of Alcohol and Drug Abuse Patient Records regulations: The Federal rules restrict any use of the information to criminally investigate or prosecute any alcohol or drug abuse patient.[facility] HospitalIn the event this information is protected by the Federal Confidentiality of Alcohol and Drug Abuse Patient Records regulations: The Federal rules restrict any use of the information to criminally investigate or prosecute any alcohol or drug abuse patient.[facility] HospitalIn the event this information is protected by the Federal Confidentiality of Alcohol and Drug Abuse Patient Records regulations: The Federal rules restrict any use of the information to criminally investigate or prosecute any alcohol or drug abuse patient.[facility] HospitalIn the event this information is protected by the Federal Confidentiality of Alcohol and Drug Abuse Patient Records regulations: The Federal rules restrict any use of the information to criminally investigate or prosecute any alcohol or drug abuse patient.[facility] HospitalIn the event this information is protected by the Federal Confidentiality of Alcohol and Drug Abuse Patient Records regulations: The Federal rules restrict any use of the information to criminally investigate or prosecute any alcohol or drug abuse patient.[facility] HospitalIn the event this information is protected by the Federal Confidentiality of Alcohol and Drug Abuse Patient Records regulations: The Federal rules restrict any use of the information to criminally investigate or prosecute any alcohol or drug abuse patient.[facility] HospitalIn the event this information is protected by the Federal Confidentiality of Alcohol and Drug Abuse Patient Records regulations: The Federal rules restrict any use of the information to criminally investigate or prosecute any alcohol or drug abuse patient.[facility] HospitalIn the event this information is protected by the Federal Confidentiality of Alcohol and Drug Abuse Patient Records regulations: The Federal rules restrict any use of the information to criminally investigate or prosecute any alcohol or drug abuse patient.[facility] HospitalIn the event this information is protected by the Federal Confidentiality of Alcohol and Drug Abuse Patient Records regulations: The Federal rules restrict any use of the information to criminally investigate or prosecute any alcohol or drug abuse patient.[facility] HospitalIn the event this information is protected by the Federal Confidentiality of Alcohol and Drug Abuse Patient Records regulations: The Federal rules restrict any use of the information to criminally investigate or prosecute any alcohol or drug abuse patient.[facility] HospitalIn the event this information is protected by the Federal Confidentiality of Alcohol and Drug Abuse Patient Records regulations: The Federal rules restrict any use of the information to criminally investigate or prosecute any alcohol or drug abuse patient.[facility] HospitalIn the event this information is protected by the Federal Confidentiality of Alcohol and Drug Abuse Patient Records regulations: The Federal rules restrict any use of the information to criminally investigate or prosecute any alcohol or drug abuse patient.[facility] HospitalIn the event this information is protected by the Federal Confidentiality of Alcohol and Drug Abuse Patient Records regulations: The Federal rules restrict any use of the information to criminally investigate or prosecute any alcohol or drug abuse patient.[facility] HospitalIn the event this information is protected by the Federal Confidentiality of Alcohol and Drug Abuse Patient Records regulations: The Federal rules restrict any use of the information to criminally investigate or prosecute any alcohol or drug abuse patient.[facility] HospitalIn the event this information is protected by the Federal Confidentiality of Alcohol and Drug Abuse Patient Records regulations: The Federal rules restrict any use of the information to criminally investigate or prosecute any alcohol or drug abuse patient.[facility] HospitalIn the event this information is protected by the Federal Confidentiality of Alcohol and Drug Abuse Patient Records regulations: The Federal rules restrict any use of the information to criminally investigate or prosecute any alcohol or drug abuse patient.[facility] HospitalIn the event this information is protected by the Federal Confidentiality of Alcohol and Drug Abuse Patient Records regulations: The Federal rules restrict any use of the information to criminally investigate or prosecute any alcohol or drug abuse patient.[facility] HospitalIn the event this information is protected by the Federal Confidentiality of Alcohol and Drug Abuse Patient Records regulations: The Federal rules restrict any use of the information to criminally investigate or prosecute any alcohol or drug abuse patient.[facility] HospitalIn the event this information is protected by the Federal Confidentiality of Alcohol and Drug Abuse Patient Records regulations: The Federal rules restrict any use of the information to criminally investigate or prosecute any alcohol or drug abuse patient.[facility] HospitalIn the event this information is protected by the Federal Confidentiality of Alcohol and Drug Abuse Patient Records regulations: The Federal rules restrict any use of the information to criminally investigate or prosecute any alcohol or drug abuse patient.[facility] HospitalIn the event this information is protected by the Federal Confidentiality of Alcohol and Drug Abuse Patient Records regulations: The Federal rules restrict any use of the information to criminally investigate or prosecute any alcohol or drug abuse patient.[facility] HospitalIn the event this information is protected by the Federal Confidentiality of Alcohol and Drug Abuse Patient Records regulations: The Federal rules restrict any use of the information to criminally investigate or prosecute any alcohol or drug abuse patient.[facility] HospitalIn the event this information is protected by the Federal Confidentiality of Alcohol and Drug Abuse Patient Records regulations: The Federal rules restrict any use of the information to criminally investigate or prosecute any alcohol or drug abuse patient.[facility] HospitalIn the event this information is protected by the Federal Confidentiality of Alcohol and Drug Abuse Patient Records regulations: The Federal rules restrict any use of the information to criminally investigate or prosecute any alcohol or drug abuse patient.[facility] HospitalIn the event this information is protected by the Federal Confidentiality of Alcohol and Drug Abuse Patient Records regulations: The Federal rules restrict any use of the information to criminally investigate or prosecute any alcohol or drug abuse patient.[facility] HospitalIn the event this information is protected by the Federal Confidentiality of Alcohol and Drug Abuse Patient Records regulations: The Federal rules restrict any use of the information to criminally investigate or prosecute any alcohol or drug abuse patient.[facility] HospitalIn the event this information is protected by the Federal Confidentiality of Alcohol and Drug Abuse Patient Records regulations: The Federal rules restrict any use of the information to criminally investigate or prosecute any alcohol or drug abuse patient.[facility] HospitalIn the event this information is protected by the Federal Confidentiality of Alcohol and Drug Abuse Patient Records regulations: The Federal rules restrict any use of the information to criminally investigate or prosecute any alcohol or drug abuse patient.[facility] HospitalIn the event this information is protected by the Federal Confidentiality of Alcohol and Drug Abuse Patient Records regulations: The Federal rules restrict any use of the information to criminally investigate or prosecute any alcohol or drug abuse patient.[facility] HospitalIn the event this information is protected by the Federal Confidentiality of Alcohol and Drug Abuse Patient Records regulations: The Federal rules restrict any use of the information to criminally investigate or prosecute any alcohol or drug abuse patient.[facility] HospitalIn the event this information is protected by the Federal Confidentiality of Alcohol and Drug Abuse Patient Records regulations: The Federal rules restrict any use of the information to criminally investigate or prosecute any alcohol or drug abuse patient.[facility] HospitalIn the event this information is protected by the Federal Confidentiality of Alcohol and Drug Abuse Patient Records regulations: The Federal rules restrict any use of the information to criminally investigate or prosecute any alcohol or drug abuse patient.[facility] HospitalIn the event this information is protected by the Federal Confidentiality of Alcohol and Drug Abuse Patient Records regulations: The Federal rules restrict any use of the information to criminally investigate or prosecute any alcohol or drug abuse patient.[facility] HospitalIn the event this information is protected by the Federal Confidentiality of Alcohol and Drug Abuse Patient Records regulations: The Federal rules restrict any use of the information to criminally investigate or prosecute any alcohol or drug abuse patient.[facility] HospitalIn the event this information is protected by the Federal Confidentiality of Alcohol and Drug Abuse Patient Records regulations: The Federal rules restrict any use of the information to criminally investigate or prosecute any alcohol or drug abuse patient.[facility] HospitalIn the event this information is protected by the Federal Confidentiality of Alcohol and Drug Abuse Patient Records regulations: The Federal rules restrict any use of the information to criminally investigate or prosecute any alcohol or drug abuse patient.[facility] HospitalIn the event this information is protected by the Federal Confidentiality of Alcohol and Drug Abuse Patient Records regulations: The Federal rules restrict any use of the information to criminally investigate or prosecute any alcohol or drug abuse patient.[facility] HospitalIn the event this information is protected by the Federal Confidentiality of Alcohol and Drug Abuse Patient Records regulations: The Federal rules restrict any use of the information to criminally investigate or prosecute any alcohol or drug abuse patient.[facility] HospitalIn the event this information is protected by the Federal Confidentiality of Alcohol and Drug Abuse Patient Records regulations: The Federal rules restrict any use of the information to criminally investigate or prosecute any alcohol or drug abuse patient.[facility] HospitalIn the event this information is protected by the Federal Confidentiality of Alcohol and Drug Abuse Patient Records regulations: The Federal rules restrict any use of the information to criminally investigate or prosecute any alcohol or drug abuse patient.[facility] HospitalIn the event this information is protected by the Federal Confidentiality of Alcohol and Drug Abuse Patient Records regulations: The Federal rules restrict any use of the information to criminally investigate or prosecute any alcohol or drug abuse patient.[facility] HospitalIn the event this information is protected by the Federal Confidentiality of Alcohol and Drug Abuse Patient Records regulations: The Federal rules restrict any use of the information to criminally investigate or prosecute any alcohol or drug abuse patient.[facility] HospitalIn the event this information is protected by the Federal Confidentiality of Alcohol and Drug Abuse Patient Records regulations: The Federal rules restrict any use of the information to criminally investigate or prosecute any alcohol or drug abuse patient.[facility] HospitalIn the event this information is protected by the Federal Confidentiality of Alcohol and Drug Abuse Patient Records regulations: The Federal rules restrict any use of the information to criminally investigate or prosecute any alcohol or drug abuse patient.[facility] HospitalIn the event this information is protected by the Federal Confidentiality of Alcohol and Drug Abuse Patient Records regulations: The Federal rules restrict any use of the information to criminally investigate or prosecute any alcohol or drug abuse patient.[facility] HospitalIn the event this information is protected by the Federal Confidentiality of Alcohol and Drug Abuse Patient Records regulations: The Federal rules restrict any use of the information to criminally investigate or prosecute any alcohol or drug abuse patient.[facility] HospitalIn the event this information is protected by the Federal Confidentiality of Alcohol and Drug Abuse Patient Records regulations: The Federal rules restrict any use of the information to criminally investigate or prosecute any alcohol or drug abuse patient.[facility] HospitalIn the event this information is protected by the Federal Confidentiality of Alcohol and Drug Abuse Patient Records regulations: The Federal rules restrict any use of the information to criminally investigate or prosecute any alcohol or drug abuse patient.[facility] HospitalIn the event this information is protected by the Federal Confidentiality of Alcohol and Drug Abuse Patient Records regulations: The Federal rules restrict any use of the information to criminally investigate or prosecute any alcohol or drug abuse patient.[facility] HospitalIn the event this information is protected by the Federal Confidentiality of Alcohol and Drug Abuse Patient Records regulations: The Federal rules restrict any use of the information to criminally investigate or prosecute any alcohol or drug abuse patient.[facility] HospitalIn the event this information is protected by the Federal Confidentiality of Alcohol and Drug Abuse Patient Records regulations: The Federal rules restrict any use of the information to criminally investigate or prosecute any alcohol or drug abuse patient.[facility] HospitalIn the event this information is protected by the Federal Confidentiality of Alcohol and Drug Abuse Patient Records regulations: The Federal rules restrict any use of the information to criminally investigate or prosecute any alcohol or drug abuse patient.[facility] HospitalIn the event this information is protected by the Federal Confidentiality of Alcohol and Drug Abuse Patient Records regulations: The Federal rules restrict any use of the information to criminally investigate or prosecute any alcohol or drug abuse patient.[facility] HospitalIn the event this information is protected by the Federal Confidentiality of Alcohol and Drug Abuse Patient Records regulations: The Federal rules restrict any use of the information to criminally investigate or prosecute any alcohol or drug abuse patient.[facility] HospitalIn the event this information is protected by the Federal Confidentiality of Alcohol and Drug Abuse Patient Records regulations: The Federal rules restrict any use of the information to criminally investigate or prosecute any alcohol or drug abuse patient.[facility] HospitalIn the event this information is protected by the Federal Confidentiality of Alcohol and Drug Abuse Patient Records regulations: The Federal rules restrict any use of the information to criminally investigate or prosecute any alcohol or drug abuse patient.[facility] HospitalIn the event this information is protected by the Federal Confidentiality of Alcohol and Drug Abuse Patient Records regulations: The Federal rules restrict any use of the information to criminally investigate or prosecute any alcohol or drug abuse patient.[facility] HospitalIn the event this information is protected by the Federal Confidentiality of Alcohol and Drug Abuse Patient Records regulations: The Federal rules restrict any use of the information to criminally investigate or prosecute any alcohol or drug abuse patient.[facility] HospitalIn the event this information is protected by the Federal Confidentiality of Alcohol and Drug Abuse Patient Records regulations: The Federal rules restrict any use of the information to criminally investigate or prosecute any alcohol or drug abuse patient.[facility] HospitalIn the event this information is protected by the Federal Confidentiality of Alcohol and Drug Abuse Patient Records regulations: The Federal rules restrict any use of the information to criminally investigate or prosecute any alcohol or drug abuse patient.[facility] HospitalIn the event this information is protected by the Federal Confidentiality of Alcohol and Drug Abuse Patient Records regulations: The Federal rules restrict any use of the information to criminally investigate or prosecute any alcohol or drug abuse patient.[facility] HospitalIn the event this information is protected by the Federal Confidentiality of Alcohol and Drug Abuse Patient Records regulations: The Federal rules restrict any use of the information to criminally investigate or prosecute any alcohol or drug abuse patient.[facility] HospitalIn the event this information is protected by the Federal Confidentiality of Alcohol and Drug Abuse Patient Records regulations: The Federal rules restrict any use of the information to criminally investigate or prosecute any alcohol or drug abuse patient.[facility] HospitalIn the event this information is protected by the Federal Confidentiality of Alcohol and Drug Abuse Patient Records regulations: The Federal rules restrict any use of the information to criminally investigate or prosecute any alcohol or drug abuse patient.[facility] HospitalIn the event this information is protected by the Federal Confidentiality of Alcohol and Drug Abuse Patient Records regulations: The Federal rules restrict any use of the information to criminally investigate or prosecute any alcohol or drug abuse patient.[facility] HospitalIn the event this information is protected by the Federal Confidentiality of Alcohol and Drug Abuse Patient Records regulations: The Federal rules restrict any use of the information to criminally investigate or prosecute any alcohol or drug abuse patient.[facility] HospitalIn the event this information is protected by the Federal Confidentiality of Alcohol and Drug Abuse Patient Records regulations: The Federal rules restrict any use of the information to criminally investigate or prosecute any alcohol or drug abuse patient.[facility] HospitalIn the event this information is protected by the Federal Confidentiality of Alcohol and Drug Abuse Patient Records regulations: The Federal rules restrict any use of the information to criminally investigate or prosecute any alcohol or drug abuse patient.[facility] HospitalIn the event this information is protected by the Federal Confidentiality of Alcohol and Drug Abuse Patient Records regulations: The Federal rules restrict any use of the information to criminally investigate or prosecute any alcohol or drug abuse patient.[facility] HospitalIn the event this information is protected by the Federal Confidentiality of Alcohol and Drug Abuse Patient Records regulations: The Federal rules restrict any use of the information to criminally investigate or prosecute any alcohol or drug abuse patient.[facility] HospitalIn the event this information is protected by the Federal Confidentiality of Alcohol and Drug Abuse Patient Records regulations: The Federal rules restrict any use of the information to criminally investigate or prosecute any alcohol or drug abuse patient.[facility] HospitalIn the event this information is protected by the Federal Confidentiality of Alcohol and Drug Abuse Patient Records regulations: The Federal rules restrict any use of the information to criminally investigate or prosecute any alcohol or drug abuse patient.[facility] HospitalIn the event this information is protected by the Federal Confidentiality of Alcohol and Drug Abuse Patient Records regulations: The Federal rules restrict any use of the information to criminally investigate or prosecute any alcohol or drug abuse patient.[facility] HospitalIn the event this information is protected by the Federal Confidentiality of Alcohol and Drug Abuse Patient Records regulations: The Federal rules restrict any use of the information to criminally investigate or prosecute any alcohol or drug abuse patient.[facility] HospitalIn the event this information is protected by the Federal Confidentiality of Alcohol and Drug Abuse Patient Records regulations: The Federal rules restrict any use of the information to criminally investigate or prosecute any alcohol or drug abuse patient.[facility] HospitalIn the event this information is protected by the Federal Confidentiality of Alcohol and Drug Abuse Patient Records regulations: The Federal rules restrict any use of the information to criminally investigate or prosecute any alcohol or drug abuse patient.[facility] HospitalIn the event this information is protected by the Federal Confidentiality of Alcohol and Drug Abuse Patient Records regulations: The Federal rules restrict any use of the information to criminally investigate or prosecute any alcohol or drug abuse patient.[facility] HospitalIn the event this information is protected by the Federal Confidentiality of Alcohol and Drug Abuse Patient Records regulations: The Federal rules restrict any use of the information to criminally investigate or prosecute any alcohol or drug abuse patient.[facility] HospitalIn the event this information is protected by the Federal Confidentiality of Alcohol and Drug Abuse Patient Records regulations: The Federal rules restrict any use of the information to criminally investigate or prosecute any alcohol or drug abuse patient.[facility] HospitalIn the event this information is protected by the Federal Confidentiality of Alcohol and Drug Abuse Patient Records regulations: The Federal rules restrict any use of the information to criminally investigate or prosecute any alcohol or drug abuse patient.[facility] HospitalIn the event this information is protected by the Federal Confidentiality of Alcohol and Drug Abuse Patient Records regulations: The Federal rules restrict any use of the information to criminally investigate or prosecute any alcohol or drug abuse patient.[facility] HospitalIn the event this information is protected by the Federal Confidentiality of Alcohol and Drug Abuse Patient Records regulations: The Federal rules restrict any use of the information to criminally investigate or prosecute any alcohol or drug abuse patient.[facility] HospitalIn the event this information is protected by the Federal Confidentiality of Alcohol and Drug Abuse Patient Records regulations: The Federal rules restrict any use of the information to criminally investigate or prosecute any alcohol or drug abuse patient.[facility] HospitalIn the event this information is protected by the Federal Confidentiality of Alcohol and Drug Abuse Patient Records regulations: The Federal rules restrict any use of the information to criminally investigate or prosecute any alcohol or drug abuse patient.[facility] HospitalIn the event this information is protected by the Federal Confidentiality of Alcohol and Drug Abuse Patient Records regulations: The Federal rules restrict any use of the information to criminally investigate or prosecute any alcohol or drug abuse patient.[facility] HospitalIn the event this information is protected by the Federal Confidentiality of Alcohol and Drug Abuse Patient Records regulations: The Federal rules restrict any use of the information to criminally investigate or prosecute any alcohol or drug abuse patient.[facility] HospitalIn the event this information is protected by the Federal Confidentiality of Alcohol and Drug Abuse Patient Records regulations: The Federal rules restrict any use of the information to criminally investigate or prosecute any alcohol or drug abuse patient.[facility] HospitalIn the event this information is protected by the Federal Confidentiality of Alcohol and Drug Abuse Patient Records regulations: The Federal rules restrict any use of the information to criminally investigate or prosecute any alcohol or drug abuse patient.[facility] HospitalIn the event this information is protected by the Federal Confidentiality of Alcohol and Drug Abuse Patient Records regulations: The Federal rules restrict any use of the information to criminally investigate or prosecute any alcohol or drug abuse patient.[facility] HospitalIn the event this information is protected by the Federal Confidentiality of Alcohol and Drug Abuse Patient Records regulations: The Federal rules restrict any use of the information to criminally investigate or prosecute any alcohol or drug abuse patient.[facility] HospitalIn the event this information is protected by the Federal Confidentiality of Alcohol and Drug Abuse Patient Records regulations: The Federal rules restrict any use of the information to criminally investigate or prosecute any alcohol or drug abuse patient.[facility] HospitalIn the event this information is protected by the Federal Confidentiality of Alcohol and Drug Abuse Patient Records regulations: The Federal rules restrict any use of the information to criminally investigate or prosecute any alcohol or drug abuse patient.[facility] HospitalIn the event this information is protected by the Federal Confidentiality of Alcohol and Drug Abuse Patient Records regulations: The Federal rules restrict any use of the information to criminally investigate or prosecute any alcohol or drug abuse patient.[facility] HospitalIn the event this information is protected by the Federal Confidentiality of Alcohol and Drug Abuse Patient Records regulations: The Federal rules restrict any use of the information to criminally investigate or prosecute any alcohol or drug abuse patient.[facility] HospitalIn the event this information is protected by the Federal Confidentiality of Alcohol and Drug Abuse Patient Records regulations: The Federal rules restrict any use of the information to criminally investigate or prosecute any alcohol or drug abuse patient.[facility] HospitalIn the event this information is protected by the Federal Confidentiality of Alcohol and Drug Abuse Patient Records regulations: The Federal rules restrict any use of the information to criminally investigate or prosecute any alcohol or drug abuse patient.[facility] HospitalIn the event this information is protected by the Federal Confidentiality of Alcohol and Drug Abuse Patient Records regulations: The Federal rules restrict any use of the information to criminally investigate or prosecute any alcohol or drug abuse patient.[facility] HospitalIn the event this information is protected by the Federal Confidentiality of Alcohol and Drug Abuse Patient Records regulations: The Federal rules restrict any use of the information to criminally investigate or prosecute any alcohol or drug abuse patient.[facility] HospitalIn the event this information is protected by the Federal Confidentiality of Alcohol and Drug Abuse Patient Records regulations: The Federal rules restrict any use of the information to criminally investigate or prosecute any alcohol or drug abuse patient.[facility] HospitalIn the event this information is protected by the Federal Confidentiality of Alcohol and Drug Abuse Patient Records regulations: The Federal rules restrict any use of the information to criminally investigate or prosecute any alcohol or drug abuse patient.[facility] HospitalIn the event this information is protected by the Federal Confidentiality of Alcohol and Drug Abuse Patient Records regulations: The Federal rules restrict any use of the information to criminally investigate or prosecute any alcohol or drug abuse patient.[facility] HospitalIn the event this information is protected by the Federal Confidentiality of Alcohol and Drug Abuse Patient Records regulations: The Federal rules restrict any use of the information to criminally investigate or prosecute any alcohol or drug abuse patient.[facility] HospitalIn the event this information is protected by the Federal Confidentiality of Alcohol and Drug Abuse Patient Records regulations: The Federal rules restrict any use of the information to criminally investigate or prosecute any alcohol or drug abuse patient.[facility] HospitalIn the event this information is protected by the Federal Confidentiality of Alcohol and Drug Abuse Patient Records regulations: The Federal rules restrict any use of the information to criminally investigate or prosecute any alcohol or drug abuse patient.[facility] HospitalIn the event this information is protected by the Federal Confidentiality of Alcohol and Drug Abuse Patient Records regulations: The Federal rules restrict any use of the information to criminally investigate or prosecute any alcohol or drug abuse patient.[facility] HospitalIn the event this information is protected by the Federal Confidentiality of Alcohol and Drug Abuse Patient Records regulations: The Federal rules restrict any use of the information to criminally investigate or prosecute any alcohol or drug abuse patient.[facility] HospitalIn the event this information is protected by the Federal Confidentiality of Alcohol and Drug Abuse Patient Records regulations: The Federal rules restrict any use of the information to criminally investigate or prosecute any alcohol or drug abuse patient.[facility] HospitalIn the event this information is protected by the Federal Confidentiality of Alcohol and Drug Abuse Patient Records regulations: The Federal rules restrict any use of the information to criminally investigate or prosecute any alcohol or drug abuse patient.[facility] HospitalIn the event this information is protected by the Federal Confidentiality of Alcohol and Drug Abuse Patient Records regulations: The Federal rules restrict any use of the information to criminally investigate or prosecute any alcohol or drug abuse patient.[facility] HospitalIn the event this information is protected by the Federal Confidentiality of Alcohol and Drug Abuse Patient Records regulations: The Federal rules restrict any use of the information to criminally investigate or prosecute any alcohol or drug abuse patient.[facility] HospitalIn the event this information is protected by the Federal Confidentiality of Alcohol and Drug Abuse Patient Records regulations: The Federal rules restrict any use of the information to criminally investigate or prosecute any alcohol or drug abuse patient.[facility] HospitalIn the event this information is protected by the Federal Confidentiality of Alcohol and Drug Abuse Patient Records regulations: The Federal rules restrict any use of the information to criminally investigate or prosecute any alcohol or drug abuse patient.[facility] HospitalIn the event this information is protected by the Federal Confidentiality of Alcohol and Drug Abuse Patient Records regulations: The Federal rules restrict any use of the information to criminally investigate or prosecute any alcohol or drug abuse patient.[facility] HospitalIn the event this information is protected by the Federal Confidentiality of Alcohol and Drug Abuse Patient Records regulations: The Federal rules restrict any use of the information to criminally investigate or prosecute any alcohol or drug abuse patient.[facility] HospitalIn the event this information is protected by the Federal Confidentiality of Alcohol and Drug Abuse Patient Records regulations: The Federal rules restrict any use of the information to criminally investigate or prosecute any alcohol or drug abuse patient.[facility] HospitalIn the event this information is protected by the Federal Confidentiality of Alcohol and Drug Abuse Patient Records regulations: The Federal rules restrict any use of the information to criminally investigate or prosecute any alcohol or drug abuse patient.[facility] HospitalIn the event this information is protected by the Federal Confidentiality of Alcohol and Drug Abuse Patient Records regulations: The Federal rules restrict any use of the information to criminally investigate or prosecute any alcohol or drug abuse patient.[facility] HospitalIn the event this information is protected by the Federal Confidentiality of Alcohol and Drug Abuse Patient Records regulations: The Federal rules restrict any use of the information to criminally investigate or prosecute any alcohol or drug abuse patient.[facility] HospitalIn the event this information is protected by the Federal Confidentiality of Alcohol and Drug Abuse Patient Records regulations: The Federal rules restrict any use of the information to criminally investigate or prosecute any alcohol or drug abuse patient.[facility] HospitalIn the event this information is protected by the Federal Confidentiality of Alcohol and Drug Abuse Patient Records regulations: The Federal rules restrict any use of the information to criminally investigate or prosecute any alcohol or drug abuse patient.[facility] HospitalIn the event this information is protected by the Federal Confidentiality of Alcohol and Drug Abuse Patient Records regulations: The Federal rules restrict any use of the information to criminally investigate or prosecute any alcohol or drug abuse patient.[facility] HospitalIn the event this information is protected by the Federal Confidentiality of Alcohol and Drug Abuse Patient Records regulations: The Federal rules restrict any use of the information to criminally investigate or prosecute any alcohol or drug abuse patient.[facility] HospitalIn the event this information is protected by the Federal Confidentiality of Alcohol and Drug Abuse Patient Records regulations: The Federal rules restrict any use of the information to criminally investigate or prosecute any alcohol or drug abuse patient.[facility] Reason for Visit (unrecogniz ed section and [...] testosterone Procedures CONSULT TO ENDOCRINOLOGY OFFICE/OUTPATIENT NEW [facility] MDM 60-74 MINUTES Simba Horton, DO [address] [place] [address] Referral ID Status Reason Start Date Expiration Date V isits Requested Visits Authorized [id number] Closed PCP Requested Referral 05/18/2023 05/17/2024 1 [...] pressure, headache, body aches x 04/22 evening Reason Onset Date Comments Refill Request 05/09/2025 Care Teams (unrecognized sec tion and content) Production Utility Worker Relationship Specialty Start Date End Date Simba Horton, DO [address] [place] [address] PCP - General Family Practice 08/17/19 Production Utility Worker Relationship Specialty Start Date End Date Simba Horton, DO [address] [place] [address] PCP - General Family Practice 08/17/19 Production Utility Worker Relationship Specialty Start Date End Date Simba Horton, DO [address] [place] [address] PCP - General Family Practice 08/17/19 Production Utility Worker Relationship Specialty Start Date End Date Simba Horton, DO [address] [place] [address] PCP - General Family Practice 08/17/19 Production Utility Worker Relationship Specialty Start Date End Date Simba Horton, DO [address] [place] [address] PCP - General Family Practice 08/17/19 Production Utility Worker Relationship Specialty Start Date End Date Simba Horton, DO [address] [place] [address] PCP - General Family Medicine 08/17/19 Production Utility Worker Relationship Specialty Start Date End Date Simba Horton, DO [address] [place] [address] PCP - General Family Medicine 08/17/19 Production Utility Worker Relationship Specialty Start Date End Date Simba Horton, DO [address] [facility] [place] [address] PCP - General Family Medicine 08/17/19 Production Utility Worker Relationship Specialty Start Date End Date Simba Horton, DO [address] [facility] [place] [address] PCP - General Family Medicine 08/17/19 Production Utility Worker Relationship Specialty Start Date End Date Simba Horton, DO [address] [facility] [place] [address] PCP - General Family Medicine 08/17/19 Team Status: Active Member Role Status Dates No Primary Care Physician Family Provider Active Dr. Simba Horton , DO Primary Care Provider Active Team Status: Inactive Member Role Status Dates Dr. Simba Horton , DO Primary Care Provider Active Dr. Fabrice Mcgill MD Emergency Provider Active Production Utility Worker Relationship Specialty Start Date End Date Simba Horton, DO [address] [facility] [place] [address] PCP - General Family Medicine 08/17/19 Production Utility Worker Relationship Specialty Start Date End Date Simba Horton, DO [address] [facility] [place] [address] PCP - General Family Medicine 08/17/19 Team Status: Inactive Member Role Status Dates Dr. Simba Horton DO Primary Care Provider Active Dr. Fabrice Mcgill MD Attending Provider, Emergency Provider Active Team Status: Inactive Member Role Status Dates Dr. Simba Horton DO Primary Care Provider Active Dr. Froilan Sheppard DO Emergency Provider Active Production Utility Worker Relationship Specialty Start Date End Date Simba Horton, DO [address] [facility] [place] [address] PCP - General Family Medicine 08/17/19 Production Utility Worker Relationship Specialty Start Date End Date Simba Horton, DO [address] [facility] [place] [address] PCP - General Family Medicine 08/17/19 Production Utility Worker Relationship Specialty Start Date End Date Simba Horton DO [address] [facility] [place] [address] PCP - General Family Medicine 08/17/19 Production Utility Worker Relationship Specialty Start Date End Date Simba Horton DO [address] [place] [address] PCP - General Family Medicine 08/17/19 Production Utility Worker Relationship Specialty Start Date End Date Simba Horton DO [address] [place] [address] PCP - General Family Medicine 08/17/19 Production Utility Worker Relationship Specialty Start Date End Date Simba Horton DO [address] [place] [address] PCP - General Family Medicine 08/17/19 Production Utility Worker Relationship Specialty Start Date End Date Simba Horton DO [address] [facility] [place] [address] PCP - General Family Medicine 08/17/19 Production Utility Worker Relationship Specialty Start Date End Date Simba Horton DO [address] [place] [address] PCP - General Family Medicine 08/17/19 Production Utility Worker Relationship Specialty Start Date End Date Simba Horton DO [address] [place] [address] PCP - General Family Medicine 08/17/19 Production Utility Worker Relationship Specialty Start Date End Date Simba Horton DO [address] [place] [address] PCP - General Family Medicine 08/17/19 Production Utility Worker Relationship Specialty Start Date End Date Simba Horton DO [address] [place] [address] PCP - General Family Medicine 08/17/19 Production Utility Worker Relationship Specialty Start Date End Date Simba Horton DO [address] [place] [address] PCP - General Family Medicine 08/17/19 Production Utility Worker Relationship Specialty Start Date End Date Simba Horton DO [address] [place] [address] PCP - General Family Medicine 08/17/19 Production Utility Worker Relationship Specialty Start Date End Date Simba Horton DO [address] [place] [address] PCP - General Family Medicine 08/17/19 Production Utility Worker Relationship Specialty Start Date End Date Simba Horton DO [address] [place] [address] PCP - General Family Medicine 08/17/19 Production Utility Worker Relationship Specialty Start Date End Date Simba Horton DO [address] [place] [address] PCP - General Family Medicine 08/17/19 Production Utility Worker Relationship Specialty Start Date End Date Simba Horton DO [address] [place] [address] PCP - General Family Medicine 08/17/19 Production Utility Worker Relationship Specialty Start Date End Date Simba Horton DO [address] [facility] [place] [address] PCP - General Family Medicine 08/17/19 Production Utility Worker Relationship Specialty Start Date End Date Simba Horton DO [address] [facility] [place] [address] PCP - General Family Medicine 08/17/19 Production Utility Worker Relationship Specialty Start Date End Date Simba Horton DO [address] [facility] [place] [address] PCP - General Family Medicine 08/17/19 Production Utility Worker Relationship Specialty Start Date End Date Simba Horton DO [address] [facility] [place] [address] PCP - General Family Medicine 08/17/19 Production Utility Worker Relationship Specialty Start Date End Date Simba Horton DO [address] [place] [address] PCP - General Family Medicine 08/17/19 Production Utility Worker Relationship Specialty Start Date End Date Simba Horton DO [address] [place] [address] PCP - General Family Medicine 08/17/19 Team Status: Inactive Member Role Status Dates Dr. Simba Horton DO Primary Care Provider Active Dr. Demetrius Jensen DO Attending Provider, Emergency Pro vider Active Team Status: Inactive Member Role Status Dates Dr. Simba Horton DO Primary Care Provider Active Dr. Tyrone Aguirre MD Attending Provider, Referring Provider Active Production Utility Worker Relationship Specialty Start Date End Date Simba Horton DO [address] [facility] [place] [address] PCP - General Family Medicine 08/17/19 Production Utility Worker Relationship Specialty Start Date End Date Simba Horton, [address] [facility] [place] [address] PCP - General Family Medicine 08/17/19 Production Utility Worker Relationship Specialty Start Date End Date Simba Horton DO [address] [facility] [place] [address] PCP - General Family Medicine 08/17/19 Production Utility Worker Relationship Specialty Start Date End Date Simba Horton, [address] [facility] [place] [address] PCP - General Family Medicine 08/17/19 Production Utility Worker Relationship Specialty Start Date End Date Simba Horton DO [address] [facility] [place] [address] PCP - General Family Medicine 08/17/19 Production Utility Worker Relationship Specialty Start Date End Date Simba Horton DO [address] [facility] [place] [address] PCP - General Family Medicine 08/17/19 Production Utility Worker Relationship Specialty Start Date End Date Simba Horton DO [address] [facility] [place] [address] PCP - General Family Medicine 08/17/19 Production Utility Worker Relationship Specialty Start Date End Date Simba Horton DO [address] [facility] [place] [address] PCP - General Family Medicine 08/17/19 Production Utility Worker Relationship Specialty Start Date End Date Simba Horton DO [address] [facility] [place] [address] PCP - General Family Medicine 08/17/19 Production Utility Worker Relationship Specialty Start Date End Date Simba Horton, [address] [place] [address] PCP - General Family Medicine 08/17/19 Production Utility Worker Relationship Specialty Start Date End Date Simba Horton, [address] [place] [address] PCP - General Family Medicine 08/17/19 Production Utility Worker Relationship Specialty Start Date End Date Simba Horton, [address] [place] [address] PCP - General Family Medicine 08/17/19 Production Utility Worker Relationship Specialty Start Date End Date Simba Horton, [address] [place] [address] PCP - General Family Medicine 08/17/19 Production Utility Worker Relationship Specialty Start Date End Date Simba Horton DO [address] [place] [address] PCP - General Family Medicine 08/17/19 Production Utility Worker Relationship Specialty Start Date End Date Simba Horton, [address] [place] [address] PCP - General Family Medicine 08/17/19 Production Utility Worker Relationship Specialty Start Date End Date Simba Horton DO [address] [place] [address] PCP - General Family Medicine 08/17/19 Production Utility Worker Relationship Specialty Start Date End Date Simba Horton, [address] [place] [address] PCP - General Family Medicine 08/17/19 Production Utility Worker Relationship Specialty Start Date End Date Simba Horton DO [address] [facility] [place] [address] PCP - General Family Medicine 08/17/19 Production Utility Worker Relationship Specialty Start Date End Date Simba Horton DO [address] [facility] [place] [address] PCP - General Family Medicine 08/17/19 Production Utility Worker Relationship Specialty Start Date End Date Simba Horton DO [address] [facility] [place] [address] PCP - General Family Medicine 08/17/19 Production Utility Worker Relationship Specialty Start Date End Date Simba Horton DO [address] [facility] [place] [address] PCP - General Family Medicine 08/17/19 Production Utility Worker Relationship Specialty Start Date End Date Simba Horton DO [address] [facility] [place] [address] PCP - General Family Medicine 08/17/19 Shelly Broderick, PROMOTIONS ASSISTANT.LADLE FILLER [address] [facility] [place] [address] Spiritual Minister Family Medicine 08/05/24 Tuan Puentes, PROMOTIONS ASSISTANT.LADLE FILLER [address] [facility] [place] [address] Spiritual Minister Family Medicine 08/05/24 Production Utility Worker Relationship Specialty Start Date End Date Simba Horton DO [address] [facility] [place] [address] PCP - General Family Medicine 08/17/19 Shelly Broderick, PROMOTIONS ASSISTANT.LADLE FILLER [address] [place] [address] Spiritual Minister Family [facility] 08/05/24 Tuan Puentes, PROMOTIONS ASSISTANT.LADLE FILLER [address] [place] [address] Spiritual Minister [facility] 08/05/24 Production Utility Worker Relationship Specialty Start Date End Date Simba Horton DO [address] [place] [address] PCP - General Family Medicine 08/17/19 Shelly Broderick, PROMOTIONS ASSISTANT.LADLE FILLER [address] [place] [address] [facility] 08/[facility]/24 Tuan Puentes, PROMOTIONS ASSISTANT.LADLE FILLER [address] [place] [address] [facility] 08/05/24 Production Utility Worker Relationship Specialty Start Date End Date Simba Horton DO [address] [place] [address] PCP - General Family Medicine 08/17/19 Shelly Broderick, PROMOTIONS ASSISTANT.LADLE FILLER [address] [place] [address] [facility] 08/05/24 Tuan Puentes, PROMOTIONS ASSISTANT.LADLE FILLER [address] [place] [address] [facility] 08/05/24 Production Utility Worker Relationship Specialty Start Date End Date Simba Horton DO [address] [facility] [place] [address] PCP - General Family Medicine 08/17/19 Shelly Broderick, PROMOTIONS ASSISTANT.LADLE FILLER [address] [facility] [place] [address] Spiritual Minister [facility] 08/05/24 [facility], PROMOTIONS ASSISTANT.LADLE FILLER [address] [facility] [place] [address] [facility] 08/05/24 Production Utility Worker Relationship Specialty Start Date End Date Simba Horton DO [address] [facility] [place] [address] PCP - General Family Medicine 08/17/19 Shelly Broderick, PROMOTIONS ASSISTANT.LADLE FILLER [address] [facility] [place] [address] [facility] 08/05/24 [facility], PROMOTIONS ASSISTANT.LADLE FILLER [address] [facility] [place] [address] [facility] 08/05/24 Production Utility Worker Relationship Specialty Start Date End Date Simba Horton DO [address] [facility] [place] [address] PCP - General Family Medicine 08/17/19 Shelly Broderick, PROMOTIONS ASSISTANT.LADLE FILLER [address] [facility] [place] [address] Spiritual Minister [facility] 08/05/24 DelorisTuan, PROMOTIONS ASSISTANT.LADLE FILLER [address] [facility] [place] [address] [facility] 08/05/24 Production Utility Worker Relationship Specialty Start Date End Date Simba Horton DO [address] [place] [address] PCP - General Family Medicine 08/17/19 Shelly Broderick, PROMOTIONS ASSISTANT.LADLE FILLER [address] [place] [address] [facility] 08/05/24 Tuan Puentes, PROMOTIONS ASSISTANT.LADLE FILLER [address] [place] [address] [facility] 08/05/24 Production Utility Worker Relationship Specialty Start Date End Date Simba Horton DO [address] [place] [address] PCP - General Family Medicine 08/17/19 Tuan Puentes, PROMOTIONS ASSISTANT.LADLE FILLER [address] [place] [address] [facility] 08/05/24 Team Status: Active Member Role [...] November 27, 2024 End: November 27, 2024 Production Utility Worker Relationship Specialty Start Date End Date Simba Horton DO [address] [facility] [place] [address] PCP - General Family Medicine 08/17/19 [facility], PROMOTIONS ASSISTANT.LADLE FILLER [address] [place] [address] [facility] 08/05/24 Production Utility Worker Relationship Specialty Start Date End Date Simba Horton DO [address] [place] [address] PCP - General Family Medicine 08/17/19 [facility], PROMOTIONS ASSISTANT.LADLE FILLER [address] [place] [address] Spiritual Minister [facility] 08/05/24 Production Utility Worker Relationship Specialty Start Date End Date Simba Horton DO [address] [place] [address] PCP - General Family Medicine 08/17/19 [facility], PROMOTIONS ASSISTANT.LADLE FILLER [address] [place] [address] [facility] 08/05/24 Production Utility Worker Relationship Specialty Start Date End Date Simba Horton DO [address] [place] [address] PCP - General Family Medicine 08/17/19 Tuan Puentes, PROMOTIONS ASSISTANT.LADLE FILLER [address] [place] [address] Spiritual Minister Family Medicine 08/05/24 Production Utility Worker Relationship Specialty Start Date End Date Simba Horton DO [address] [place] [address] PCP - General Family Medicine 08/17/19 Tuan Puentes, PROMOTIONS ASSISTANT.LADLE FILLER [address] [place] [address] Spiritual Minister Family [facility] 08/05/24 Production Utility Worker Relationship Specialty Start Date End Date Simba Horton DO [address] [place] [address] PCP - General Family Medicine 08/17/19 Tuan Puentes, PROMOTIONS ASSISTANT.LADLE FILLER [address] [place] [address] Spiritual Minister Family Medicine 08/05/24 Production Utility Worker Relationship Specialty Start Date End Date Simba Horton DO [address] [place] [address] PCP - General Family Medicine 08/17/19 Tuan Puentes, PROMOTIONS ASSISTANT.LADLE FILLER [address] [place] [address] Spiritual Minister Family [facility] 08/05/24 Production Utility Worker Relationship Specialty Start Date End Date Simba Horton DO [address] [place] [address] PCP - General Family Medicine 08/17/19 Tuan Puentes, PROMOTIONS ASSISTANT.LADLE FILLER [address] [place] [address] Spiritual Minister Family [facility] 08/05/24 Production Utility Worker Relationship Specialty Start Date End Date Simba Horton DO [address] [place] [address] PCP - General Family Medicine 08/17/19 Tuan Puentes, PROMOTIONS ASSISTANT.LADLE FILLER [address] [place] [address] Spiritual Minister Family [facility] 08/05/24 Production Utility Worker Relationship Specialty Start Date End Date Simba Horton DO [address] [place] [address] PCP - General Family Medicine 08/17/19 Tuan Puentes, PROMOTIONS ASSISTANT.LADLE FILLER [address] [place] [address] Spiritual Minister Family [facility] 08/05/24 Production Utility Worker Relationship Specialty Start Date End Date Simba Horton DO [address] [place] [address] PCP - General Family Medicine 08/17/19 Tuan Puentes, PROMOTIONS ASSISTANT.LADLE FILLER [address] [place] [address] Spiritual Minister Family Medicine 08/05/24 Ashlee Gooden, PROMOTIONS ASSISTANT.LADLE FILLER [address] [place] [address] Spiritual Minister Family Medicine 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 Start Date End Date Simba Horton DO [address] [place] [address] PCP - General Family Medicine 08/17/19 Tuan Puentes, PROMOTIONS ASSISTANT.LADLE FILLER [address] [place] [address] Spiritual Minister Family Medicine 08/05/24 Ashlee Gooden, PROMOTIONS ASSISTANT.LADLE FILLER [address] [place] [address] [facility] 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 Start Date End Date Simba Horton DO [address] [place] [address] PCP - General Family Medicine 08/17/19 Tuan Puentes, PROMOTIONS ASSISTANT.LADLE FILLER [address] [place] [address] Spiritual Minister Family Medicine 08/05/24 Ashlee Gooden, PROMOTIONS ASSISTANT.LADLE FILLER [address] [place] [address] [facility] 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 Start Date End Date Simba Horton DO [address] [place] [address] PCP - General Family Medicine 08/17/19 Tuan Puentes, PROMOTIONS ASSISTANT.LADLE FILLER [address] [place] [address] [facility] 08/05/24 Ashlee Gooden, PROMOTIONS ASSISTANT.LADLE FILLER [address] [place] [address] [facility] 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 Start Date End Date Simba Horton DO [address] [facility] [place] [address] PCP - General Family Medicine 08/17/19 DelorisTuan, PROMOTIONS ASSISTANT.LADLE FILLER [address] [place] [address] [facility] 08/05/24 Ashlee Gooden, PROMOTIONS ASSISTANT.LADLE FILLER [address] [place] [address] [facility] 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 Start Date End Date Simba Horton DO [address] [place] [address] PCP - General Family Medicine 08/17/19 DelorisTuan, PROMOTIONS ASSISTANT.LADLE FILLER [address] [place] [address] [facility] 08/05/24 Ashlee Gooden, PROMOTIONS ASSISTANT.LADLE FILLER [address] [place] [address] [facility] 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 Start Date End Date Simba Horton DO [address] [facility] [place] [address] PCP - General Family Medicine 08/17/19 Tuan Puentes, PROMOTIONS ASSISTANT.LADLE FILLER [address] [place] [address] [facility] 08/05/24 Ashlee Gooden, PROMOTIONS ASSISTANT.LADLE FILLER [address] [place], [place] [address] [facility] 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 Simba Horton DO Primary Care Provider Active Team Status: Active Member Role/Relationship Status Dates Dr. Simba Horton DO Primary Care Provider Active Start: April 04, 2025 Health Risk Assessment Attending Provider Active Start: April 04, 2025 Team Status: Inactive Member Role/Relationship Status Dates Dr. Simba Horton DO Primary Care Provider Active Start: May 11, 2025 End: May 11, 2025 Dr. Cheryl Kimbrough DPM Attending Provider Active Start: May 11, 2025 End: May 11, 2025 Dr. Cheryl Kimbrough DPM Referring Provider Active Start: May 11, 2025 End: May 11, 2025 Goals (unrecognized section and content) Goals may [...] BE BASED ON THE PRIMARY CLINICAL RECORDS. [facility] [employer] [facility]. provides no warranty or guarantee of the accuracy or completeness of information in this document.
--- NOTE | 2025-08-27 20:56 | RAD_ITS ---
PROCEDURE: LEFT FOOT MIN 3 VIEWS 08/27/2025 REASON FOR EXAM: FOOT WOUND TECHNIQUE: Procedure Code: RADFO Modality: DX Procedure: FOOT MIN 3 VIEWS COMPARISON: None. FINDINGS: No acute fracture or dislocation. Postoperative changes to the 1st MTP joint from prior cheilectomy and Hawkins osteotomy surgery. No aggressive osseous erosion or destruction. Slight hallux valgus and mild arthrosis of the 1st MTP joint. Remaining joint spaces are preserved. Trace calcaneal spurring. No appreciable soft tissue swelling or subcutaneous emphysema. RAD/Foot min 3 Views IMPRESSION: No acute or aggressive osseous abnormality. Postoperative changes to the 1st MTP joint, as described. Reading Location: [id number]
[2025-08-27 21:20] LABS: Hematocrit 48.6 % (40-54); Hemoglobin 16.1 g/dL (13.0-16.5); Immature Granulocytes Count 0.080 X10^3/uL (0.0-0.0); Mean Corp Hgb Conc 33.1 g/dL (32-36); Mean Corpuscular Volume 85.4 fL (80-94); Mean Platelet Vol. 9.8 fl (6.2-12.0); NRBC Flagged by Analyzer 0 % (0-5); Platelet Count 270 K/mm3 (150-450); RBC Distribution Width CV 11.9 % (11.6-14.6); RBC Distribution Width SD 36.3 fl (35.1-43.9); Red Blood Count 5.69 M/mm3 (4.6-6.2); White Blood Count 13.2 K/mm3 (4.4-11.0)
[2025-08-27] MEDS: Vancomycin HCl 1,750 MG in 0.9% Normal Saline (500mL Bag) 500 ML 250 MG IV (21:22)
[2025-08-27 21:32] VITALS: BP 142/104; PULSE 102; RESP 18; TEMP 36.8; O2SAT 97
[2025-08-27 21:35] LABS: Anion Gap 12 (7-18); BUN 8 mg/dL (4-19); BUN/Creat Ratio 7.6 RATIO (10-20); Calcium,Total 9.4 mg/dL (7.6-11.0); Carbon Dioxide 27.0 mmol/L (20.0-29.0); Chloride 101 mmol/L (96-106); Estimated Creatinine Clearance 115.26 ml/min (50-250); Glucose 84 mg/dL (70-99); Potassium 3.6 mmol/L (3.5-5.1)
[2025-08-27] MEDS: 0.9% Normal Saline (1000mL) 1,000 ML 999 ML IV (21:46)
[2025-08-27 21:58] LABS: CRP 7.48 mg/L (0.0-3.0)
[2025-08-27 22:00] VITALS: BP 142/104; PULSE 99; RESP 18; TEMP 36.8; O2SAT 100
[2025-08-27] MEDS: Piperacil/Tazobactam 4.5 GM in 0.9% Normal Saline (100mL MB+) 100 ML IV (23:45)
[2025-08-28 00:38] VITALS: BP 144/87; PULSE 92; RESP 16; TEMP 36.2; O2SAT 100
== END 2025-08-28 00:41 | disposition home or self-care (01) ==
PROVIDERS: Emergency Provider Emergency Medicine; PCP Student in an Organized Health Care Education/Training Program; Visit Provider Emergency Medicine
DX: D72.829 Elevated white blood cell count, unspecified (principal); T81.40XA Infection following a procedure, unspecified, initial encounter; R68.83 Chills (without fever); R11.2 Nausea with vomiting, unspecified; Z90.49 Acquired absence of other specified parts of digestive tract; J45.909 Unspecified asthma, uncomplicated; K21.9 Gastro-esophageal reflux disease without esophagitis
CPT/HCPCS: 73630; 80048; 85025; 85652; 86140; 96365; 96366; 96367; 99282; A4216